=== PATIENT | male | born 1965 | race Caucasian/White ===

== ENCOUNTER 2016-10-19 02:22 | Emergency (ER) | payer OTHER ==
[~2016-10-19 02:22] MED LIST: Z.0.NO CURRENT MEDS
[2016-10-19 02:52] VITALS: BP 150/88; PULSE 90; RESP 18; TEMP 97.8; O2SAT 99
[2016-10-19] MEDS ORDERED: KETOROLAC TROMETHAMINE 30 MG/ML (IVP) VIAL IVP ONE (03:30)
[2016-10-19] MEDS ORDERED: SODIUM CHLORIDE 0.9% FLUSH 5 ML FLUSH IVF PRN (03:30)
[2016-10-19] MEDS ORDERED: ONDANSETRON HCL 4 MG/2 ML VIAL IVP ONE (03:30)
[2016-10-19 03:49] VITALS: RESP 18; O2SAT 98
[2016-10-19 03:56] LABS: AUTOMATED NEUTROPHIL # 22.5 TH/MM3 (1.8-7.7); BASOPHIL % 0.1 % (0.0-2.0); HEMATOCRIT 44.7 % (39.0-51.0); LYMPH % 2.3 % (9.0-44.0); LYMPHOCYTE # 0.6 TH/MM3 (1.0-4.8); MEAN CORPUSCULAR HEMOGLOBIN 32.6 PG (27.0-34.0); MEAN CORPUSCULAR HGB CONC 34.3 % (32.0-36.0); MONO % 5.3 % (0.0-8.0); NEUT % 92.3 % (16.0-70.0); PLATELET COUNT 211 TH/MM3 (150-450); RED BLOOD COUNT 4.71 MIL/MM3 (4.50-5.90); RED CELL DISTRIBUTION WIDTH 12.9 % (11.6-17.2); WHITE BLOOD COUNT 24.3 TH/MM3 (4.0-11.0)
[2016-10-19 03:57] LABS: HEMO FLAGS AUTO DIFF
--- NOTE | 2016-10-19 04:10 | RADRPT ---
EXAM DATE/TIME: 10/19/2016 03:49 [facility] COMPARISON: No previous studies available for comparison. INDICATIONS : Altered mental status. RADIATION DOSE: 63.30 CTDIvol (mGy) MEDICAL HISTORY : None SURGICAL HISTORY : None. ENCOUNTER: Initial ACUITY: 1 day PAIN SCALE: 0/10 LOCATION: cranial TECHNIQUE: Multiple contiguous axial images were obtained of the head. Using automated exposure control and adj ustment of the mA and/or kV according to patient size, radiation dose was kept as low as reasonably a chievable to obtain optimal diagnostic quality images. FINDINGS: Motion degraded CEREBRUM: The ventricles are normal for age. No evidence of midline shift, mass lesion, hemorrhage or acute in farction. No extra-axial fluid collections are seen. POSTERIOR FOSSA: The cerebellum and brainstem are intact. The 4th ventricle is midline. The cerebellopontine angle i s unremarkable. EXTRACRANIAL: The visualized portion of the orbits is intact. SKULL: The calvaria is intact. No evidence of skull fracture. CONCLUSION: No acute abnormality demonstrated. Ubaldo Gray MD on October 19, 2016 at 4:07 Board Certified Radiologist. This report was verified electronically.
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
[2016-10-19 04:24] LABS: ALT (GPT) 37 U/L (12-78); ANION GAP 13 MEQ/L (5-15); AST (GOT) 24 U/L (15-37); BANDS 17 % (0-6); BICARBONATE 21.3 MEQ/L (21.0-32.0); BLOOD UREA NITROGEN 11 MG/DL (7-18); CHLORIDE 95 MEQ/L (98-107); GLOMERULAR FILTRATION RATE 84 ML/MIN (>89); NEUTROPHIL # MANUAL DIFF 22.1 TH/MM3 (1.8-7.7); POLYS (SEG NEUTROPHILS) 74 % (16-70); POTASSIUM 3.5 MEQ/L (3.5-5.1); SODIUM (NA) 129 MEQ/L (136-145); WBC DIFF SAMPLE 100
[2016-10-19 04:25] LABS: PLATELET ESTIMATE SMEAR NORMAL (NORMAL); PLATELET MORPHOLOGY NORMAL (NORMAL); SCAN/DIFF FINAL DIFF MANUAL
[2016-10-19 04:31] LABS: ALKALINE PHOSPHATASE 112 U/L (45-117); TOTAL BILIRUBIN ADULT 0.8 MG/DL (0.2-1.0)
[2016-10-19 04:59] LABS: BLOOD, URINE MOD (NEG); COMMENT (UR) CULT NOT INDICATED; CULTURE IF INDICATED CULT NOT INDICATED; GLUCOSE,URINE 1000 mg/dL (NEG); KETONE, URINE 40 mg/dL (NEG); MUCUS URINE FEW /lpf (OCC); NITRITE,URINE NEG (NEG); URINE COLOR YELLOW (YELLW/STRAW)
[2016-10-19] MEDS ORDERED: CEPH-460 PO (05:19)
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
[2016-10-19] MEDS ORDERED: FLUCONAZOLE 100 MG TAB PO SCH (09:00)
== END 2016-10-19 06:28 | disposition home or self-care (01) ==
LOC: NEPE 02:22
DX: R10.9 Unspecified abdominal pain (principal); R41.82 Altered mental status, unspecified; R30.0 Dysuria; M54.5 Low back pain
CPT/HCPCS: 70450; 74176; 80053; 80320; 81001; 83690; 85007; 85027; 96374; 96375; 99285; J1885; J2405

== ENCOUNTER 2016-10-19 11:42 | Inpatient (IN) | payer OTHER ==
[~2016-10-19] VITALS: Ht 182.9 cm; Wt 101.1 kg
[2016-10-19] VITALS (7 sets, daily range): BP systolic 92–159; BP diastolic 62–96; PULSE 92–144; RESP 26–42; TEMP 98.8–101; O2SAT 94–99
[~2016-10-19 11:42] MED LIST changes: +CEPH-460 PO
[2016-10-19] MEDS ORDERED: LORazepam 2 MG/ML VIAL IV PUSH ONE (12:00)
[2016-10-19] MEDS ORDERED: SODIUM CHLORIDE 0.9% FLUSH 5 ML FLUSH IVF PRN ×2 (12:00)
[2016-10-19 12:46] LABS: AUTOMATED NEUTROPHIL # 29.5 TH/MM3 (1.8-7.7); LYMPHOCYTE # 0.3 TH/MM3 (1.0-4.8); MEAN CORPUSCULAR HEMOGLOBIN 32.4 PG (27.0-34.0); MEAN CORPUSCULAR HGB CONC 34.1 % (32.0-36.0); MONO % 4.3 % (0.0-8.0); NEUT % 94.7 % (16.0-70.0); PLATELET COUNT 172 TH/MM3 (150-450); RED BLOOD COUNT 4.94 MIL/MM3 (4.50-5.90); WHITE BLOOD COUNT 31.2 TH/MM3 (4.0-11.0)
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
[2016-10-19 12:49] LABS: HEMO FLAGS AUTO DIFF
[2016-10-19 12:51] LABS: BACTERIA, URINE RARE /hpf; BLOOD, URINE MOD (NEG); GLUCOSE,URINE 1000 mg/dL (NEG); KETONE, URINE 10 mg/dL (NEG); NITRITE,URINE NEG (NEG); SQUAMOUS EPITHELIAL CELL URINE <1 /hpf (0-5); URINE COLOR YELLOW (YELLW/STRAW)
[2016-10-19 12:53] LABS: COMMENT (UR) CULT NOT INDICATED; CULTURE IF INDICATED CULT NOT INDICATED
[2016-10-19 12:55] LABS: AMPHETAMINE, URINE POS (NEG); BARBITURATES, URINE NEG (NEG); COCAINE, URINE NEG (NEG)
[2016-10-19 12:58] LABS: APTT (PATIENT) 30.3 SEC (24.3-30.1); PROTHROMBIN TIME - PATIENT 11.4 SEC (9.8-11.6)
--- NOTE | 2016-10-19 13:10 | RADRPT ---
EXAM DATE/TIME: 10/19/2016 12:40 [facility] COMPARISON: No previous studies available for comparison. INDICATIONS : Syncopal episode. MEDICAL HISTORY : Unobtainable. SURGICAL HISTORY : Unobtainable. ENCOUNTER: Initial ACUITY: 1 day PAIN SCORE: Non-responsive. LOCATION: Bilateral chest FINDINGS: A single view of the chest demonstrates the lungs to be symmetrically aerated without evidence of mas s, infiltrate or effusion. The cardiomediastinal contours are unremarkable. Osseous structures are intact. CONCLUSION: No acute pulmonary infiltrates Marcel Cabrera MD on October 19, 2016 at 13:09 Board Certified Radiologist. This report was verified electronically.
[2016-10-19 13:11] LABS: ALKALINE PHOSPHATASE 153 U/L (45-117); ALT (GPT) 37 U/L (12-78); ANION GAP 18 MEQ/L (5-15); AST (GOT) 37 U/L (15-37); BICARBONATE 15.9 MEQ/L (21.0-32.0); BLOOD UREA NITROGEN 21 MG/DL (7-18); CHLORIDE 100 MEQ/L (98-107); GLOMERULAR FILTRATION RATE 30 ML/MIN (>89); POTASSIUM 3.3 MEQ/L (3.5-5.1); SODIUM (NA) 134 MEQ/L (136-145); TOTAL BILIRUBIN ADULT 1.4 MG/DL (0.2-1.0)
[2016-10-19] MEDS ORDERED: PIPERACIL-TAZO 4.5 GM PREMIX 100 ML IV STA (13:16)
[2016-10-19] MEDS ORDERED: VANCOMYCIN INJ 1,000 MG in SODIUM CHLOR 0.9% 250 ML INJ 250 ML IV STA (13:16)
[2016-10-19 13:23] LABS: BANDS 12 % (0-6); NEUTROPHIL # MANUAL DIFF 30.3 TH/MM3 (1.8-7.7); PLATELET ESTIMATE SMEAR NORMAL (NORMAL); PLATELET MORPHOLOGY NORMAL (NORMAL); POLYS (SEG NEUTROPHILS) 85 % (16-70); SCAN/DIFF FINAL DIFF MANUAL; TOXIC VACUOLATION PRESENT (NONE SEEN); WBC DIFF SAMPLE 100
[2016-10-19 13:24] LABS: CREATINE KINASE 326 U/L (39-308)
[2016-10-19 13:25] LABS: ACANTHOCYTES OCC (NORMAL); BURR CELLS 1+ (NORMAL)
[2016-10-19] MEDS ORDERED: SODIUM CHLOR 0.9% 1000 ML INJ 1,000 ML IV ONE ×5 (13:30→20:00)
[2016-10-19 13:31] LABS: CKMB 4.4 NG/ML (0.5-3.6)
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
[2016-10-19 14:17] LABS: BARBITURATES, URINE NEG (NEG)
[2016-10-19 14:18] LABS: AMPHETAMINE, URINE POS (NEG); COCAINE, URINE NEG (NEG)
[2016-10-19] MEDS ORDERED: POTASSIUM PHOSPHATE MONOBASIC 500 MG TAB PO/TUBE PRN (14:30)
[2016-10-19] MEDS ORDERED: GLUCAGON 1 MG/ML VIAL OTHER PRN (14:30)
[2016-10-19] MEDS ORDERED: POTASSIUM PHOSPHATE INJ 30 MMOL in SODIUM CHLOR 0.9% 250 ML INJ 250 ML IV PRN (14:30)
[2016-10-19] MEDS ORDERED: CHLORHEXIDINE GLUCONATE 2 % 1 PACK (2 CLOTHS) TOP PRN (14:30)
[2016-10-19] MEDS ORDERED: Vancomycin Consult Pharmacy 1 EA XX PRN (14:30)
[2016-10-19] MEDS ORDERED: POTASSIUM CHLOR 40 MEQ PREMIX 100 ML IV PRN ×2 (14:30)
[2016-10-19] MEDS ORDERED: DEXTROSE 50% IN WATER 50 ML VIAL(D50) IV PUSH PRN (14:30)
[2016-10-19] MEDS ORDERED: MISCELLANEOUS NURSING INFORMATION XX SCH (14:30)
[2016-10-19] MEDS ORDERED: POTASSIUM CL 40 MEQ/30 ML LIQ UDC PO/TUBE PRN ×2 (14:30)
[2016-10-19] MEDS ORDERED: MAGNESIUM OXIDE 400 MG TAB PO PRN (14:30)
[2016-10-19] MEDS ORDERED: RESP: ALBUTEROL 2.5 MG/IPRATROPIUM 0.5 MG NEB (PRN) INH (14:30)
[2016-10-19] MEDS ORDERED: POTASSIUM CHLOR 20 MEQ PREMIX 100 ML IV PRN (14:30)
[2016-10-19] MEDS ORDERED: SODIUM PHOSPHATE INJ 30 MMOL in SODIUM CHLOR 0.9% 250 ML INJ 240 ML IV PRN (14:30)
[2016-10-19] MEDS ORDERED: MAGNESIUM SULFATE INJ 2 GM in SODIUM CHLORIDE 0.9% INJ 96 ML IV PRN (14:30)
[2016-10-19] MEDS ORDERED: MAGNESIUM SULFATE INJ 4 GM in SODIUM CHLORIDE 0.9% INJ 92 ML IV PRN (14:30)
[2016-10-19] MEDS ORDERED: SODIUM CHLORIDE 0.9% FLUSH 5 ML FLUSH IV FLUSH PRN (14:30)
[2016-10-19 14:42] LABS: LACTIC ACID GHOST NOT REPORTABLE
[2016-10-19] MEDS ORDERED: HALOPERIDOL LACTATE 5 MG/ML AMP IM PRN (14:45)
[2016-10-19] MEDS ORDERED: LORazepam 2 MG/ML VIAL IV PUSH PRN ×4 (14:45)
[2016-10-19] MEDS ORDERED: FLUMAZENIL 0.5 MG/5 ML VIAL IV PUSH PRN (14:45)
[2016-10-19] MEDS: POTASSIUM CHLOR 20 MEQ PREMIX 100 ML IV PRN ×3 (14:48→18:28)
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
[2016-10-19] MEDS: DEXMEDETOMIDINE INJ 50 ML IV SCH ×4 (15:37→21:36)
[2016-10-19] MEDS: SODIUM CHLOR 0.9% 1000 ML INJ 1,000 ML IV SCH (15:38)
[2016-10-19] MEDS: CEFEPIME INJ 2,000 MG in SODIUM CHLORIDE 0.9% INJ 100 ML IV SCH ×2 (15:53→23:32)
[2016-10-19] MEDS: HEPARIN SODIUM - SQ 10,000 UNITS/ML VIAL SQ SCH (15:53)
[2016-10-19] MEDS: INSULIN NovoLIN REGULAR SUPPLEMENTAL SCALE SQ SCH ×2 (15:55→21:00)
[2016-10-19] MEDS ORDERED: VANCOMYCIN 500 MG/NS 100 ML IV SCH ×2 (17:00)
[2016-10-19] MEDS: LORazepam 2 MG/ML VIAL IV PRN (17:13)
[2016-10-19] MEDS: MULTIVITAMIN INJ 10 ML, FOLIC ACID INJ 1 MG in SODIUM CHLORID 0.9% 500 ML INJ 500 ML IV SCH (18:17)
[2016-10-19] MEDS: CHLORHEXIDINE 0.12% (ORAL KIT) 15 ML CUP MT SCH (20:10)
[2016-10-19] MEDS: SODIUM CHLORIDE 0.9% FLUSH 5 ML FLUSH IV FLUSH SCH (20:11)
[2016-10-19 20:26] LABS: BLOOD GAS BASE EXCESS -1.5 mmol/L (-2-2); BLOOD GAS CARBOXYHEMOGLOBIN 1.2 % (0-4); BLOOD GAS HCO3 23 mmol/L (22-26); BLOOD GAS METHEMOGLOBIN 1.3 % (0-2); BLOOD GAS O2 HGB SATURATION 84 % (90-100); BLOOD GAS OXYGEN CONTENT 16.7 Vol % (12.0-20.0); BLOOD GAS PCO2 37 mmHg (38-42); BLOOD GAS PO2 53 mmHg (61-120); BLOOD GAS TOTAL HGB 14.1 G/DL (12.0-16.0); TEMP CORR TO 98.6
[2016-10-19 20:27] LABS: CRITICAL VALUE YES; OXYGEN DEVICE NASAL CANNULA
[2016-10-19 20:28] LABS: DRAW SITE RT RADIAL; FIO2 28 %; LITER FLOW 2 L/M; NUMBER OF ARTERIAL PUNCTURES 1; STAT YES; ULNAR PULSE PRESENT
[2016-10-19] MEDS ORDERED: POTASSIUM PHOSPHATE INJ 30 MMOL in SODIUM CHLOR 0.9% 250 ML INJ 250 ML IV ONE (20:45)
[2016-10-19] MEDS ORDERED: SODIUM PHOSPHATE INJ 30 MMOL in SODIUM CHLOR 0.9% 250 ML INJ 250 ML IV ONE (21:00)
[2016-10-19] MEDS ORDERED: SODIUM CHLORIDE 0.9% FLUSH 5 ML FLUSH IV FLUSH SCH (21:00)
[2016-10-20] VITALS (20 sets, daily range): BP systolic 103–138; BP diastolic 61–77; PULSE 79–103; RESP 18–45; TEMP 98.6–100.2; O2SAT 94–100
[2016-10-20 01:36] LABS: BLOOD GAS BASE EXCESS -3.2 mmol/L (-2-2); BLOOD GAS CARBOXYHEMOGLOBIN 1.1 % (0-4); BLOOD GAS HCO3 21 mmol/L (22-26); BLOOD GAS METHEMOGLOBIN 1.2 % (0-2); BLOOD GAS O2 HGB SATURATION 91 % (90-100); BLOOD GAS OXYGEN CONTENT 18.6 Vol % (12.0-20.0); BLOOD GAS PCO2 33 mmHg (38-42); BLOOD GAS PO2 68 mmHg (61-120); BLOOD GAS TOTAL HGB 14.6 G/DL (12.0-16.0); CRITICAL VALUE NO; OXYGEN DEVICE NASAL CANNULA; TEMP CORR TO 98.6
[2016-10-20 01:37] LABS: DRAW SITE RT RADIAL; FIO2 45 %; LITER FLOW 5 L/M; NUMBER OF ARTERIAL PUNCTURES 1; STAT NO; ULNAR PULSE PRESENT
[2016-10-20] MEDS: DEXMEDETOMIDINE INJ 50 ML IV SCH (01:37)
[2016-10-20] MEDS: LORazepam 2 MG/ML VIAL IV PRN (01:52)
[2016-10-20] MEDS: SODIUM CHLOR 0.9% 1000 ML INJ 1,000 ML IV SCH ×2 (02:19→13:27)
[2016-10-20] MEDS ORDERED: fentaNYL DRIP 250 ML IV SCH (02:30)
[2016-10-20] MEDS ORDERED: LACTATED RINGER'S 1000 ML INJ 1,000 ML IV ONE (02:30)
[2016-10-20] MEDS ORDERED: ETOMIDATE 20 MG/10 ML VIAL IV PUSH ONE (02:30)
[2016-10-20] MEDS ORDERED: ROCURONIUM INJ 50 MG/5 ML VIAL IV ONE (02:30)
--- NOTE | 2016-10-20 03:24 | PD.PROCEDR ---
Procedure Note Procedure PROCEDURE NOTE PROCEDURE: Endotracheal intubation INDICATION: Inadequate airway protection. DETAILS OF PROCEDURE: Patient has been tachypneic throughout the evening,adequately compensating for metabolic acidemia. Acidemia has been improving. But came to bedside to assess and he has L hemiparesis and no gag reflex. No witness seizure activity. Unknown time of onset so not candidate for TPA, but will do CT brain and probably followup with MRI if CT brain negative for bleed. The patient was placed in optimal position and preoxygenated with 100% FiO2 via [id number]. Oximeter oxygen saturation of 98% was obtained prior to direct laryngoscopy. The patient was administered Etomidate 20 mg IV and Rocuronium 50 mg IV for RSI. Direct laryngoscopy was performed with a 4.0 Cox laryngoscope blade and a grade 2 Cormack-Lehane view was obtained. On single attempt a size 8.0 endotracheal tube was visualized passing through the cords. Correct placement was confirmed with colorimetric CO2 detector. Breath sounds were equal bilaterally. No sounds auscultated over the stomach. The endotracheal tube was secured with a commercial tube anaya at a depth of 24 cm at the lips. The patient was connected to the ventilator. The patient tolerated the procedure well without any apparent complication. Oxygen saturations were maintained greater than 97% at all times. Stat chest x-ray demonstrated satisfactory ETT position. Elayne Healy MD Oct 20, 2016 03:24
[2016-10-20 03:26] LABS: BLOOD GAS BASE EXCESS -3.8 mmol/L (-2-2); BLOOD GAS HCO3 21 mmol/L (22-26); BLOOD GAS METHEMOGLOBIN 1.3 % (0-2); BLOOD GAS O2 HGB SATURATION 86 % (90-100); BLOOD GAS OXYGEN CONTENT 18.1 Vol % (12.0-20.0); BLOOD GAS PCO2 40 mmHg (38-42); BLOOD GAS PO2 57 mmHg (61-120); BLOOD GAS TOTAL HGB 15.1 G/DL (12.0-16.0); TEMP CORR TO 98.6
[2016-10-20 03:27] LABS: CRITICAL VALUE YES; OXYGEN DEVICE VENTILATOR
--- NOTE | 2016-10-20 03:27 | PD.PROCEDR ---
Procedure Note Procedure DATE: 10/20/16 CENTRAL LINE PLACEMENT: Right subclavian vein. INDICATION: Central venous access CONSENT Procedure was done emergently as patient has no known healthcare surrogate and he is intubated and in need of central access. His mother has dementia and is not capacitated for medical decision making according to patient's friend. DESCRIPTION OF THE PROCEDURE The patient was placed in supine position, Trendelenburg. The skin was cleansed with Chloraprep 4. Additional barrier precautions included large sterile drape, sterile gloves, sterile gown, face mask, and hat. 1 % lidocaine was used for local anesthesia. On second pass, the vein was accessed with an introducer needle. The guide wire was advanced and the tract was dilated. Using Seldinger technique a 7 [place] 20 cm antimicrobial coated triple-lumen catheter was advanced to a depth of 18 centimeters. The guide wire was removed. All ports had good return of dark venous blood and flushed easily with saline. The central line was secured with 2.0 silk. A sterile dressing with antibiotic disc was applied. ESTIMATED BLOOD LOSS: Minimal COMPLICATIONS: No apparent complications. STAT chest x-ray demonstrated satisfactory CVL position without apparent complication when viewed on portable Xray machine. Elayne Healy MD Oct 20, 2016 03:27
[2016-10-20 03:28] LABS: DRAW SITE RT RADIAL; FIO2 50 %; NUMBER OF ARTERIAL PUNCTURES 1; STAT YES; ULNAR PULSE PRESENT; VENT SETTINGS AC18/550/PEEP5
--- NOTE | 2016-10-20 03:34 | RADRPT ---
EXAM DATE/TIME: 10/20/2016 03:13 [facility] COMPARISON: CHEST SINGLE AP, October 19, 2016, 12:40. INDICATIONS : Central line placement. MEDICAL HISTORY : None. SURGICAL HISTORY : None. ENCOUNTER: Subsequent ACUITY: 2 days PAIN SCORE: Non-responsive. LOCATION: Bilateral chest FINDINGS: The cardiac silhouette is enlarged in transverse diameter. There is prominence of the central pulmona ry vasculature with indistinct vascular margins compatible with vascular congestion but no evidence o f overt failure. Endotracheal tube is in good position above the omari. A right sided subclavian rig ht vein catheter is in place without pneumothorax with its tip in the superior vena cava. Endotrachea l tube is in good position above the omari. CONCLUSION: 1. Uncomplicated line placement. No evidence of pneumothorax. Satisfactory position of endotracheal t ube as above. 2. Cardiomegaly and findings of vascular congestion without overt failure. This is new when compared with the prior exam. John Hobson MD on October 20, 2016 at 3:31 Board Certified Radiologist. This report was verified electronically.
[2016-10-20] MEDS: CHLORHEXIDINE GLUCONATE 2 % 1 PACK (2 CLOTHS) TOP SCH (04:00)
[2016-10-20 04:43] LABS: AUTOMATED NEUTROPHIL # 25.1 TH/MM3 (1.8-7.7); BASOPHIL % 0.1 % (0.0-2.0); EOSINOPHIL % 0.2 % (0.0-4.0); HEMATOCRIT 37.2 % (39.0-51.0); LYMPH % 4.3 % (9.0-44.0); LYMPHOCYTE # 1.2 TH/MM3 (1.0-4.8); MEAN CORPUSCULAR HEMOGLOBIN 32.6 PG (27.0-34.0); MEAN CORPUSCULAR HGB CONC 34.3 % (32.0-36.0); MONO % 5.5 % (0.0-8.0); NEUT % 89.9 % (16.0-70.0); PLATELET COUNT 126 TH/MM3 (150-450); RED BLOOD COUNT 3.92 MIL/MM3 (4.50-5.90); RED CELL DISTRIBUTION WIDTH 13.4 % (11.6-17.2); WHITE BLOOD COUNT 27.9 TH/MM3 (4.0-11.0)
[2016-10-20 04:46] LABS: HEMO FLAGS AUTO DIFF
[2016-10-20 04:50] LABS: APTT (PATIENT) 28.8 SEC (24.3-30.1); PROTHROMBIN TIME - PATIENT 10.9 SEC (9.8-11.6)
[2016-10-20] MEDS: PROPOFOL 1000 MG/100 ML INJ 100 ML IV SCH ×6 (04:50→19:36)
--- NOTE | 2016-10-20 05:03 | RADRPT ---
EXAM DATE/TIME: 10/20/2016 03:40 [facility] COMPARISON: CT BRAIN W/O CONTRAST, October 19, 2016, 3:49. CT BRAIN W/O CONTRAST, October 19, 2016, 13:16. INDICATIONS : Altered mental status. RADIATION DOSE: 52.13 CTDIvol (mGy) MEDICAL HISTORY : Non-responsive. SURGICAL HISTORY : Non-responsive. ENCOUNTER: Initial ACUITY: 1 day PAIN SCALE: 1/10 LOCATION: cranial TECHNIQUE: Multiple contiguous axial images were obtained of the head. Using automated exposure control and adj ustment of the mA and/or kV according to patient size, radiation dose was kept as low as reasonably a chievable to obtain optimal diagnostic quality images. FINDINGS: Noncontrast axial head CT demonstrates the ventricles to be normal in size and configuration with a n ormal sulcal pattern. No acute intracranial hemorrhage, acute cortical infarction, mass or midline sh ift is seen. Posterior fossa structures are unremarkable. 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 CONCLUSION: 1. No evidence of acute intracranial pathology. No masses are identified. 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 This report was verified electronically.
[2016-10-20 05:31] LABS: ALKALINE PHOSPHATASE 98 U/L (45-117); ALT (GPT) 33 U/L (12-78); ANION GAP 13 MEQ/L (5-15); AST (GOT) 56 U/L (15-37); BICARBONATE 21.5 MEQ/L (21.0-32.0); BLOOD UREA NITROGEN 30 MG/DL (7-18); CHLORIDE 108 MEQ/L (98-107); GLOMERULAR FILTRATION RATE 41 ML/MIN (>89); MAGNESIUM 2.5 MG/DL (1.5-2.5); POTASSIUM 3.5 MEQ/L (3.5-5.1); SODIUM (NA) 142 MEQ/L (136-145); TOTAL BILIRUBIN ADULT 1.2 MG/DL (0.2-1.0)
[2016-10-20] MEDS: INSULIN NovoLIN REGULAR SUPPLEMENTAL SCALE SQ SCH ×4 (06:27→20:57)
[2016-10-20 06:48] LABS: BANDS 17 % (0-6); METAMYELOCYTES 1 % (0-1); NEUTROPHIL # MANUAL DIFF 24.8 TH/MM3 (1.8-7.7); POLYS (SEG NEUTROPHILS) 71 % (16-70); SCAN/DIFF FINAL DIFF MANUAL; WBC DIFF SAMPLE 100
[2016-10-20 06:50] LABS: PLATELET ESTIMATE SMEAR LOW (NORMAL); PLATELET MORPHOLOGY NORMAL (NORMAL)
[2016-10-20 06:51] LABS: ACANTHOCYTES OCC (NORMAL); DOHLE BODIES PRESENT (NONE SEEN); TOXIC GRANULATION 1+ (NORMAL)
[2016-10-20] MEDS: CEFEPIME INJ 2,000 MG in SODIUM CHLORIDE 0.9% INJ 100 ML IV SCH ×3 (07:47→23:54)
[2016-10-20] MEDS: CHLORHEXIDINE 0.12% (ORAL KIT) 15 ML CUP MT SCH ×3 (07:48→19:34)
[2016-10-20] MEDS: PANTOPRAZOLE SODIUM 40 MG VIAL IV SCH (08:26)
[2016-10-20] MEDS: SODIUM CHLORIDE 0.9% FLUSH 5 ML FLUSH IV FLUSH SCH ×2 (08:27→20:57)
[2016-10-20 08:40] LABS: BLOOD GAS BASE EXCESS -2.8 mmol/L (-2-2); BLOOD GAS CARBOXYHEMOGLOBIN 0.8 % (0-4); BLOOD GAS HCO3 21 mmol/L (22-26); BLOOD GAS METHEMOGLOBIN 1.1 % (0-2); BLOOD GAS O2 HGB SATURATION 95 % (90-100); BLOOD GAS OXYGEN CONTENT 26.2 Vol % (12.0-20.0); BLOOD GAS PCO2 34 mmHg (38-42); BLOOD GAS PO2 87 mmHg (61-120); BLOOD GAS TOTAL HGB 19.6 G/DL (12.0-16.0); CRITICAL VALUE NO; OXYGEN DEVICE VENTILATOR; TEMP CORR TO 98.6
[2016-10-20 08:41] LABS: DRAW SITE LT RADIAL; FIO2 45 %; NUMBER OF ARTERIAL PUNCTURES 1; STAT YES; ULNAR PULSE PRESENT; VENT SETTINGS A/C550/18/5PEEP
--- NOTE | 2016-10-20 09:40 | EKG ---
Date Performed: 10/19/2016 Time Performed: 11:48:10 PTAGE: 51 years EKG: SINUS TACHYCARDIA WITH SHORT PA INTERVAL WITH OCCASIONAL VENTRICULAR PREMATURE COMPLEXES, P OSSIBLE ATRIAL FLUTTER MODERATE ST DEPRESSION ABNORMAL ECG INTERPRETATION BASED ON A DEFAULT AGE OF 4 0 YEARS NO PREVIOUS TRACING DOCTOR: John De Dios Interpretating Date/Time 10/20/2016 09:36:54
--- NOTE | 2016-10-20 10:28 | EKG ---
Date Performed: 10/19/2016 Time Performed: 17:26:52 PTAGE: 51 years EKG: SINUS TACHYCARDIA POSSIBLE LEFT ATRIAL ENLARGEMENT ABNORMAL RHYTHM ECG Compared to prior tr acing no significant change PREVIOUS TRACING : 10/19/2016 11.48 DOCTOR: John De Dios Interpretating Date/Time 10/20/2016 10:26:05
[2016-10-20] MEDS ORDERED: GADOBENATE DIM PF 529 MG/ML 5 ML VIAL (for RAD MRI) IV ONE (10:34)
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
[2016-10-20] MEDS: VANCOMYCIN INJ 2,000 MG in SODIUM CHLORID 0.9% 500 ML INJ 500 ML IV SCH (11:24)
[2016-10-20] MEDS ORDERED: ASPIRIN 325 MG TAB PO ONE (13:15)
--- NOTE | 2016-10-20 13:37 | RADRPT ---
EXAM DATE/TIME: 10/20/2016 12:03 [facility] COMPARISON: No previous studies available for comparison. INDICATIONS: Distention. MEDICAL HISTORY : unobtainable SURGICAL HISTORY : unobtainable ENCOUNTER: Subsequent ACUITY: 2 days PAIN SCORE: Non-responsive. LOCATION: Bilateral upper quadrant and lower quadrant abdomen FINDINGS: Minimal colonic dilatation is evident. There are degenerative changes in the lumbar spine. CONCLUSION: Nonspecific bowel gas. Maximiliano Nielsen MD FACR on October 20, 2016 at 13:30 Board Certified Radiologist. This report was verified electronically.
--- NOTE | 2016-10-20 14:07 | HHI.CCPN ---
Subjective Remarks/Hospital Course 51-year-old male with history of chronic substance use and alcohol use, was recently seen in the ER apparently for UTI earlier this a.m.,CT scanshowing possible pyelonephritis, with perinephric edema and subsequently discharged. This subsequent presentation to the ED today brought in by EMS, because he was found in the [place] by bystanders, disoriented,unknown LOC. According to EMS, they believe that he may have used some crack cocaine. No history was obtainable in the ED, laboratory and imaging studies were performed. The patient was noted to have leukocytosis, with a WBC count of 31, with an initial lactate of 7.3 .CT of the head showed no acute abnormality .Upon my entering the ED to examine the patient, supine in 4 point restraints,combative, not responding, but awake. He is diaphoretic and tachycardic , HR 115-120's. Critical care medicine was consulted for treatment and management. Subjective 10/20 Afebrile. Last evening, the patient was noted to be moving all 4 extremities, requiring 4. restraints in addition of the Precedex infusion. Noncommunicative, combative and motor strength 5/5. Approximately 2:30 AM, the patient was noted to be nonresponsive off sedation, left hemiplegia, with no gag reflex. The patient was emergently intubated for airway protection. ABGs were within normal limits. Repeat CT at 4 AM was unremarkable. MRI obtained today, noted mild restricted diffusion right basal ganglia characteristic of subacute infarction. One dose of aspirin was given, neurology was consulted appreciate recommendations. Carotid Doppler studies, echo pending. Objective Vital Signs Date Time Temp Pulse Resp B/P Pulse Ox O2 Delivery O2 Flow Rate FiO2 10/20/16 12:00 45 10/20/16 12:00 98.6 82 20 110/70 97 10/19/16 19:18 Nasal Cannula 2.00 Intake and Output 10/19/16 10/19/16 10/20/16 08:00 16:00 00:00 Intake Total 3228 ml Output Total 900 ml Balance 2328 ml Result Diagram: 10/20/16 0425 10/20/16 0425 Other Results Laboratory Tests Test 10/19/16 10/20/16 10/20/16 10/20/16 20:13 01:21 03:14 08:32 Blood Gas Puncture Site RT RADIAL RT RADIAL RT RADIAL LT RADIAL Blood Gas Patient Temperature 98.6 98.6 98.6 98.6 Blood Gas HCO3 23 mmol/L 21 mmol/L 21 mmol/L 21 mmol/L (22-26) (22-26) (22-26) (22-26) Blood Gas Base Excess -1.5 mmol/L -3.2 mmol/L -3.8 mmol/L -2.8 mmol/L (-2-2) (-2-2) (-2-2) (-2-2) Blood Gas Oxygen Saturation 84 % (90-100) 91 % (90-100) 86 % (90-100) 95 % (90- 100) Arterial Blood pH 7.41 7.42 7.34 7.41 (7.380-7.420) (7.380-7.420) (7.380-7.420) (7.380-7.420) Arterial Blood Partial 37 mmHg (38-42) 33 mmHg (38-42) 40 mmHg (38-42) 34 mmHg ( 38-42) Pressure CO2 Arterial Blood Partial 53 mmHg 68 mmHg 57 mmHg 87 mmHg Pressure O2 (61-120) (61-120) (61-120) (61-120) Arterial Blood Oxygen Content 16.7 Vol % 18.6 Vol % 18.1 Vol % 26.2 Vol % (12.0-20.0) (12.0-20.0) (12.0-20.0) (12.0-20.0) Arterial Blood 1.2 % (0-4) 1.1 % (0-4) 1.0 % (0-4) 0.8 % (0-4) Carboxyhemoglobin Arterial Blood Methemoglobin 1.3 % (0-2) 1.2 % (0-2) 1.3 % (0-2) 1.1 % (0-2) Blood Gas Hemoglobin 14.1 G/DL 14.6 G/DL 15.1 G/DL 19.6 G/DL (12.0-16.0) (12.0-16.0) (12.0-16.0) (12.0-16.0) Oxygen Delivery Device NASAL CANNULA NASAL CANNULA VENTILATOR VENTILATOR Blood Gas Liter Flow 2 L/M 5 L/M Blood Gas Inspired Oxygen 28 % 45 % 50 % 45 % Blood Gas Ventilator Setting AC18/550/PEEP5 A/C550/18/5PEEP Imaging Last [address] 10/20/16 0000 Signed Impressions: Service Date/Time: Thursday, October 20, 2016 03:40 - CONCLUSION: 1. No evidence of acute intracranial pathology. No masses are identified. Old right basal ganglia infarct John Hobson MD Chest X-Ray 10/20/16 0000 Signed Impressions: Service Date/Time: Thursday, October 20, 2016 03:13 - CONCLUSION: 1. Uncomplicated line placement. No evidence of pneumothorax. Satisfactory position of endotracheal tube as above. 2. Cardiomegaly and findings of vascular congestion without overt failure. This is new when compared with the prior exam. John Hobson MD Brain MRI 10/20/16 0000 Signed Impressions: Service Date/Time: Thursday, October 20, 2016 09:50 - CONCLUSION: 1. Focal area of mild restricted diffusion in the right basal ganglia with increased signal on the flair and T2-weighted sequence characteristic of an area of subacute infarction. 2. Mild atrophy and chronic small vessel ischemic change. 3. No acute hemorrhage or mass effect. Micha Wallace MD Last Impressions Head CT 10/19/16 1159 Signed Impressions: Service Date/Time: Wednesday, October 19, 2016 13:16 - CONCLUSION: No acute pathology. No significant change has occurred compared to the prior study. Marcel Cabrera MD Chest X-Ray 10/19/16 1159 Signed Impressions: Service Date/Time: Wednesday, October 19, 2016 12:40 - CONCLUSION: No acute pulmonary infiltrates Marcel Cabrera MD Objective Remarks GENERAL: Critically ill-appearing male intubated and sedated. SKIN: Warm and dry. HEAD: Atraumatic. Normocephalic. EYES: Pupils equal and round, 2 mm. No scleral icterus, or nystagmus. No injection or drainage. ENT: No nasal bleeding or discharge. Mucous membranes pink and moist. Orotracheally intubated NECK: Trachea midline. No JVD. CARDIOVASCULAR: Regular rate, and regular rhythm. RESPIRATORY: No accessory muscle use. Clear to auscultation. Breath sounds equal bilaterally. GASTROINTESTINAL: Abdomen soft, non-tender, nondistended. No guarding. Well- healed midline abdominal scar noted OGT in situ MUSCULOSKELETAL: Extremities cyanosis B/L feet or edema. No obvious deformities. NEUROLOGICAL:GCS 3T. Off sedation ,pt not following commands, but noted to be moving right upper and lower extremity. Urinary Catheter: Yes Campbell insert reason: Measure Accurate Output Date of Insertion: Oct 19, 2016 Vascular Central Line Catheter: Yes Assessment to: Continue Date of Insertion: Oct 20, 2016 Line: Central Venous Catheter Side: Left Location: Subclavian A/P Assessment and Plan Plan by systems: Neurologic: Toxic encephalopathy versus metabolic encephalopathy Alcohol use disorder Right Subacute basal ganglia infarct -GCS 3T Propofol infusion for ventilator synchrony -CT 10/19no acute pathology, 10/20- Old right basal ganglia infarct -MRI 10/20-mild restricted diffusion right basal ganglia,characteristic of subacute infarction -ASA 325 x 1 dose -Obtain carotid Doppler [id number] results -10/19 Expanded urine tox screen pending, positive for amphetamines, cannabinoids , opiates -Neurology consult- Dr. Macias -Monitor for alcohol withdrawal-CIWA protocol,Haldol -Monitor for seizure activity -10/20 XHA-[id number] results -Propofol infusion for ventilator synchrony -Multivitamin IV bag 2 days, then when necessary thiamine and folate Respiratory: -Mechanical ventilation-AC 18/550/.45/5 -Ventilator bundle -Maintain O2 sat greater than 92% -Monitor ABGs -Daily sedation vacation -Bronchodilators scheduled every 4 hours, every 2 hours when necessary Maintain head of bed 30 Cardiovascular: Tachycardia-resolved -Normotensive at this time, heart rate 115, will avoid beta blockers at this time secondary to possible cocaine use -Follow up serial EKG 10/19 sinus tach, LAE -Initial troponin 0.06->0.14->0.06 down trended -F/U echo-rule out endocarditis-with LAE , may consider ROSIBEL, rule out thrombus -Obtain lipid panel Renal: Dehydration- Renal insufficiency -NS @ 42cc/hr -Creatinine improving now 1.75, continue to monitor -Monitor BMP -- Strict I/Os FEN/GI: Hypokalemia -Replete electrolytes per ICU protocol -Dietary consult -Placement of OGT, follow-up KUB, begin tube feeds -Protonix GI prophylaxis -Bowel regimen senna, colace Heme/ID: Leukocytosis Sepsis -ID consulted -Encephalopathy possibly due to meningitis, Lumbar Puncture medically necessary - coordination per Dr. Reid -Lactate 1.5 -WBC 31-->27.9 today -Empiric antibioticscefepime and vancomycin (day 2) -10/19 Blood cultures-strep pneumo -10/19 Urine cultures-NGTD Endocrine: Hyperglycemia -Glucose monitoring every 6 hours per ICU protocol, low-dose Novolin regimen -Obtain hemoglobin A1C -- SSI Prophylaxis: GI Prophylaxis Protonix DVT Prophylaxis -- SCDs Heparin SQ BID Lines: PIV's x2. Central line [facility] (10/20) Dispo: This patient remains critically ill with one or more organ systems which are or may become a threat to life. I have spent in excess of 49 minutes discontinuously in the care and management of this patient. This time is exclusive of procedures, and includes, but is not limited to, evaluation of the patient, review of the medical record, discussions with family, consultants, nursing staff, or respiratory therapy, and documentation in the medical record. Physician Nicole Li MD Oct 20, 2016 14:07
[2016-10-20] MEDS: RESP: ALBUTEROL 2.5 MG/IPRATROPIUM 0.5 MG NEB (SCH) NEB ×2 (14:33→19:50)
--- NOTE | 2016-10-20 14:53 | OTSOAPIP ---
TIME SESSION COMPLETED: AM TREATMENT TIME: 0 MINS. CHART REVIEWED. RECEIVED ORDER TO EVALUATE AND TREAT, PT PRESENTS WITH CHANGE IN MEDICAL STATUS SINCE ORDERS RECEIVED PER NURSING APPROXIMATELY 2:30 AM, THE PATIENT WAS NOTED TO BE NONRESPONSIVE OFF SEDATION, LEFT HEMIPLEGIC, WITH NO GAG REFLEX AND WAS REQUIRED TO BE INTUBATED. INTERDISCIPLINARY COMMUNICATION: SPOKE WITH NURSING AND DR CELIS INFORMING PT WILL REQUIRE RESTART ORDERS. PT IS SCHEDULED FOR A BRAIN MRI. PLAN: WILL AWAIT RESTART ORDERS Therapist: SUHAIL ARANA/Eleanor Signature on file
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
--- NOTE | 2016-10-20 15:55 | EC ---
Study Study Date:10/20/2016 STUDY CONCLUSIONS SUMMARY - Left ventricle: The cavity size was normal. Wall thickness was normal. Systolic function was normal. The estimated ejection fraction was in the range of 55% to 60%. Wall motion was normal; there were no regional wall motion abnormalities. - Mitral valve: Mild regurgitation. - Tricuspid valve: Mild regurgitation. - Pulmonary arteries: PA peak pressure: 40mm Hg (S). Impressions: No evidence of endocarditis. If LV function is below 40, please consider prescribing an ACEI or ARB or document rationale for non-use. PROCEDURE DATA STUDY STATUS: Elective. Procedure: Transthoracic echocardiography. Image quality was good. Scanning was performed from the parasternal, apical, and subcostal acoustic windows. Study completion: The patient tolerated the procedure well. Transthoracic echocardiography. M-mode, complete 2D, complete spectral Doppler, and color Doppler. Patient status: Inpatient. CARDIAC ANATOMY LEFT VENTRICLE: The cavity size was normal. Wall thickness was normal. Systolic function was normal. The estimated ejection fraction was in the range of 55% to 60%. Wall motion was normal; there were no regional wall motion abnormalities. AORTIC VALVE: Trileaflet; normal thickness leaflets. Doppler: Transvalvular velocity was within the normal range. There was no stenosis. No regurgitation. AORTA: Aortic root: The aortic root was normal in size. MITRAL VALVE: Structurally normal valve. Doppler: Transvalvular velocity was within the normal range. There was no evidence for stenosis. Mild regurgitation. LEFT ATRIUM: The atrium was normal in size. RIGHT VENTRICLE: The cavity size was normal. Wall thickness was normal. PULMONIC VALVE: Doppler: Transvalvular velocity was within the normal range. There was no evidence for stenosis. No regurgitation. TRICUSPID VALVE: Structurally normal valve. Doppler: Transvalvular velocity was within the normal range. Mild regurgitation. PULMONARY ARTERY: The main pulmonary artery was normal-sized. Systolic pressure was within the normal range. RIGHT ATRIUM: The atrium was normal in size. PERICARDIUM: There was no pericardial effusion. SYSTEMIC VEINS: Inferior vena cava: The vessel was normal in size. BASIC MEASUREMENTS ADULT Normal Left ventricle LV internal dimension, ED, chordal level, 47.9 mm 43-52 PLAX LV internal dimension, ES, chordal level, 35.7 mm 23-38 PLAX Fractional shortening, chordal level, PLAX *25 % >29 LV posterior wall thickness, ED 11.2 mm IVS/LVPW ratio, ED 1.21 <1.3 Ventricular septum Septal thickness, ED 13.5 mm Aortic valve Leaflet separation 25 mm 15-26 Right ventricle RV internal dimension, ED, PLAX *41.3 mm 19-38 BASIC MEASUREMENTS ADULT Normal Aortic valve Leaflet separation 25 mm 15-26 Aorta Root diameter, ED 34 mm 20-37 Left atrium Anterior-posterior dimension, ES 37 mm 19-40 LA/aortic root ratio 1.09 DOPPLER MEASUREMENTS ADULT Normal Main pulmonary artery Pressure, S *40 mm Hg =30 Tricuspid valve Regurgitant peak velocity 274 cm/s Peak RV-RA gradient, S 30 mm Hg Systemic veins Estimated CVP 10 mm Hg Right ventricle RV pressure, S *40 mm Hg <30 LEGEND: Mean values are shown as u=mean value. Asterisk (*) lassiter values outside specified normal range. Prepared and signed by John De Dios [id number]
[2016-10-20] MEDS: MULTIVITAMIN INJ 10 ML, FOLIC ACID INJ 1 MG in SODIUM CHLORID 0.9% 500 ML INJ 500 ML IV SCH (16:00)
[2016-10-20 16:52] LABS: CREATINE KINASE 391 U/L (39-308); HDL CHOLESTEROL 10.4 MG/DL (40.0-60.0)
[2016-10-20 17:12] LABS: HEMOGLOBIN A1a 1.1 %; HEMOGLOBIN A1b 2.5 %; HEMOGLOBIN Ao 81.4 %; HEMOGLOBIN LA1C 2.8 %; HEMOGLOBIN P3 4.8 %
[2016-10-20 17:13] LABS: CKMB 1.1 NG/ML (0.5-3.6)
--- NOTE | 2016-10-20 18:11 | MG ---
cc: OLGA REESE M.D. Lab No: Date: 10/20/2016 Age: Sex: M Race: ELECTROENCEPHALOGRAM NUMBER [id number] TECHNIQUE 17 channel EEG. DESCRIPTION The background rhythm reveals slowing in the delta frequency roughly 3-4 Hz. Amplitude is about 20-30 microvolts. At times there is almost a burst suppression type pattern. No lateralizing features identified and no epileptic features are seen. Photic stimulation does not result in a driving response. INTERPRETATION Abnormal study consistent with severe encephalopathy. MD DESTINY Anderson/FREDDY /4:53 PM /6:10 PM
--- NOTE | 2016-10-20 20:10 | MB ---
cc: BENTON KAY M.D. DATE OF CONSULTATION 10/20/2016 REASON FOR CONSULTATION He is seen in neurological consultation. This 51-year-old with history of change in mental status. HISTORY OF THE PRESENT ILLNESS The patient was admitted yesterday. He came in in the morning. Apparently he had been in the emergency room prior to that and was discharged with UTI. Subsequently he was found in the [place] by bystanders and he was disoriented. He was unable to provide adequate history. He was admitted in the intensive care unit in the middle of the night. He was noted to have left-sided weakness. I spoke to Dr. Landry and we went over and reviewed the case. His urine toxicology was positive for opiates, amphetamines and also cannabinoids. The patient has been intubated and required sedation for agitation. I spoke to the RN taking care of the patient at bedside. The exam shows the patient to be sedated and when off sedation he is very agitated, restless and apparently not moving his left side. The pupils were small, probably reactive. Muscle stretch reflex is essentially absent, plantar responses none. IMAGING Ancillary data, the CT showed no acute pathology but the MRI is showing right basal ganglia diffusion abnormality compatible with subacute infarct. ASSESSMENT 1. Right basal ganglia acute / subacute infarct. 2. Drug abuse. 3. Sepsis. Renal impairment. 4. Possible endocarditis. 5. Possible alcohol withdrawal as well. Further neurologic evaluation. Notes which include a carotid ultrasound study, I believe already requested. The echocardiogram results just came out showing no significant abnormality. I also checked and there is no significant stenosis by the carotid ultrasound. His white count this markedly elevated. He has been initiated on aspirin therapy. EKG shows tachycardia but no atrial fibrillation. LDL is pending. EEG apparently already done, pending results. Continue the medical care, possibly switch to suppository aspirin. I follow the neurologic course. Thank you for asking us to assist in his care. MD DEBBIE Moya/FREDDY /5:19 PM /8:02 PM
[2016-10-20] MEDS: DOCUSATE SODIUM 100 MG/10 ML UDC PO SCH (20:57)
[2016-10-21] VITALS (19 sets, daily range): BP systolic 113–159; BP diastolic 68–93; PULSE 87–109; RESP 18–23; TEMP 98.7–100.1; O2SAT 92–100
[2016-10-21] MEDS: PROPOFOL 1000 MG/100 ML INJ 100 ML IV SCH ×9 (01:23→23:05)
[2016-10-21 01:26] LABS: MAGNESIUM 2.4 MG/DL (1.5-2.5)
[2016-10-21 01:27] LABS: POTASSIUM 3.4 MEQ/L (3.5-5.1)
[2016-10-21] MEDS: RESP: ALBUTEROL 2.5 MG/IPRATROPIUM 0.5 MG NEB (SCH) NEB ×4 (03:33→20:16)
[2016-10-21] MEDS: CHLORHEXIDINE GLUCONATE 2 % 1 PACK (2 CLOTHS) TOP SCH (03:49)
[2016-10-21 05:36] LABS: BLOOD GAS BASE EXCESS -2.2 mmol/L (-2-2); BLOOD GAS CARBOXYHEMOGLOBIN 1.2 % (0-4); BLOOD GAS HCO3 22 mmol/L (22-26); BLOOD GAS METHEMOGLOBIN 1.4 % (0-2); BLOOD GAS O2 HGB SATURATION 95 % (90-100); BLOOD GAS OXYGEN CONTENT 18.6 Vol % (12.0-20.0); BLOOD GAS PCO2 34 mmHg (38-42); BLOOD GAS PO2 94 mmHg (61-120); BLOOD GAS TOTAL HGB 13.9 G/DL (12.0-16.0); TEMP CORR TO 98.6
[2016-10-21 05:37] LABS: CRITICAL VALUE NO; DRAW SITE RT RADIAL; FIO2 45 %; NUMBER OF ARTERIAL PUNCTURES 1; OXYGEN DEVICE VENTILATOR; STAT NO; ULNAR PULSE PRESENT; VENT SETTINGS AC/18/550/PEEP5
[2016-10-21 06:08] LABS: AUTOMATED NEUTROPHIL # 23.6 TH/MM3 (1.8-7.7); BASOPHIL # 0.1 TH/MM3 (0-0.2); BASOPHIL % 0.3 % (0.0-2.0); HEMATOCRIT 38.3 % (39.0-51.0); LYMPH % 9.5 % (9.0-44.0); LYMPHOCYTE # 2.8 TH/MM3 (1.0-4.8); MEAN CORPUSCULAR HEMOGLOBIN 32.6 PG (27.0-34.0); MEAN CORPUSCULAR HGB CONC 34.3 % (32.0-36.0); MONO % 9.7 % (0.0-8.0); NEUT % 80.5 % (16.0-70.0); PLATELET COUNT 141 TH/MM3 (150-450); RED BLOOD COUNT 4.03 MIL/MM3 (4.50-5.90); RED CELL DISTRIBUTION WIDTH 13.6 % (11.6-17.2); WHITE BLOOD COUNT 29.4 TH/MM3 (4.0-11.0)
[2016-10-21 06:20] LABS: HEMO FLAGS AUTO DIFF
[2016-10-21 06:27] LABS: ALKALINE PHOSPHATASE 122 U/L (45-117); ALT (GPT) 40 U/L (12-78); ANION GAP 12 MEQ/L (5-15); AST (GOT) 57 U/L (15-37); BICARBONATE 23.5 MEQ/L (21.0-32.0); BLOOD UREA NITROGEN 24 MG/DL (7-18); CHLORIDE 109 MEQ/L (98-107); GLOMERULAR FILTRATION RATE 65 ML/MIN (>89); MAGNESIUM 2.5 MG/DL (1.5-2.5); SODIUM (NA) 144 MEQ/L (136-145); TOTAL BILIRUBIN ADULT 1.2 MG/DL (0.2-1.0)
[2016-10-21] MEDS: INSULIN NovoLIN REGULAR SUPPLEMENTAL SCALE SQ SCH ×4 (06:47→20:28)
[2016-10-21] MEDS: CHLORHEXIDINE 0.12% (ORAL KIT) 15 ML CUP MT SCH ×2 (07:38→20:06)
[2016-10-21] MEDS: CEFEPIME INJ 2,000 MG in SODIUM CHLORIDE 0.9% INJ 100 ML IV SCH (07:38)
[2016-10-21 07:56] LABS: BANDS 10 % (0-6); NEUTROPHIL # MANUAL DIFF 25.3 TH/MM3 (1.8-7.7); POLYS (SEG NEUTROPHILS) 76 % (16-70); WBC DIFF SAMPLE 100
[2016-10-21 07:57] LABS: PLATELET ESTIMATE SMEAR LOW (NORMAL); PLATELET MORPHOLOGY ENLARGED (NORMAL); SCAN/DIFF FINAL DIFF MANUAL
[2016-10-21 07:58] LABS: TEARDROP RBCS 1+ (NORMAL)
[2016-10-21] MEDS: SODIUM CHLORIDE 0.9% FLUSH 5 ML FLUSH IV FLUSH SCH ×2 (08:24→20:28)
[2016-10-21] MEDS: DOCUSATE SODIUM 100 MG/10 ML UDC PO SCH ×2 (08:24→20:28)
[2016-10-21] MEDS: PANTOPRAZOLE SODIUM 40 MG VIAL IV SCH (08:24)
[2016-10-21] MEDS: SENNOSIDES SYRUP 8.8 MG/5 ML CUP PO SCH (08:24)
[2016-10-21] MEDS ORDERED: Vancomycin Consult Pharmacy 1 EA OTHER SCH (08:30)
--- NOTE | 2016-10-21 08:35 | EKG ---
Date Performed: 10/19/2016 Time Performed: 23:32:54 PTAGE: 51 years EKG: Sinus rhythm . Normal ECG Compared to prior tracing no significant change DOCTOR: John De Dios Interpretating Date/Time 10/21/2016 08:34:16
--- NOTE | 2016-10-21 08:54 | HHI.PR ---
Review/Management Daily Summary 10/21 less sedated when seen this am, mildly agitated and moving right side well but severely paretic left studies seen will need prison rehab, asa and statin Subjective Subjective Comments intubated on vent Active Medications Current Medications Medications (Trade) Dose Ordered Sig/Ananya Route Start Time Stop Time Status Last Admin (NS 1000 ml Inj) 1,000 ml @ 42 mls/hr [id number] IV 10/19/16 14:24 10/20/16 13:27 (NS Flush) 2 ml BID IV FLUSH 10/19/16 21:00 10/21/16 08:24 (Protonix Inj) 40 mg DAILY IV 10/20/16 09:00 10/21/16 08:24 (Zofran Inj) 4 mg Q6H PRN IV 10/19/16 14:30 (Heparin Inj) 5,000 units Q12H SQ 10/19/16 16:00 Hold 10/19/16 15:53 Miscellaneous Information 1 Q361D XX 10/19/16 14:30 (Chlorhexidine 2% Cloth) 3 pack Taper DAILY@04 TOP 10/20/16 04:00 10/16/17 03:59 10/21/16 03:49 Chlorhexidine Gluconate 3 pack 3 pack UNSCH PRN TOP 10/19/16 14:30 Potassium Chloride 100 ml @ 50 mls/hr Q2H PRN IV 10/19/16 14:30 (KCl 20 Meq Premix Inj) 100 ml @ 50 mls/hr Q2H PRN IV 10/19/16 14:30 Potassium Chloride 40 meq 40 meq UNSCH PRN PO/TUBE 10/19/16 14:30 Potassium Chloride 100 ml @ 25 mls/hr UNSCH PRN IV 10/19/16 14:30 10/21/16 01:32 Potassium Chloride 100 ml @ 50 mls/hr Q2H PRN IV 10/19/16 14:30 10/19/16 14:48 (Magnesium Sulfate Inj/NS Inj) 100 ml @ 50 mls/hr UNSCH PRN IV 10/19/16 14:30 Magnesium Oxide 800 mg 800 mg UNSCH PRN PO 10/19/16 14:30 (Magnesium Sulfate Inj/NS Inj) 100 ml @ 50 mls/hr UNSCH PRN IV 10/19/16 14:30 Potassium Phosphate 2000 mg 2,000 mg Q4H PRN PO 10/19/16 14:30 (Sodium Phosphate Inj/NS 250 ml Inj) 250 ml @ 42 mls/hr UNSCH PRN IV 10/19/16 14:30 (KCl 40 Meq/30 ml Liq) 40 meq UNSCH PRN PO/TUBE 10/19/16 14:30 Potassium Phosphate 2000 mg 2,000 mg UNSCH PRN PO/TUBE 10/19/16 14:30 (Potassium Phosphate Inj/NS 250 ml Inj) 260 ml @ 42 mls/hr UNSCH PRN IV 10/19/16 14:30 IV Flush 2 ml 2 ml UNSCH PRN IV FLUSH 10/19/16 14:30 (Maxipime Inj/NS Inj) 100 ml @ 200 mls/hr Q8H IV 10/19/16 16:00 10/21/16 07:38 (D50w (Vial) Inj) 25 ml UNSCH PRN IV PUSH 10/19/16 14:30 (Glucagon Inj) 1 mg UNSCH PRN OTHER 10/19/16 14:30 Haloperidol Lactate 5 mg 5 mg Q6H PRN IM 10/19/16 14:45 (Mvi-12 Inj/ Folvite Inj/NS 500 ml Inj) 510.2 ml @ 125 mls/hr Q24H IV 10/19/16 16:00 10/22/16 15:59 10/20/16 16:00 (Romazicon Inj) 0.2 mg Q1M PRN IV PUSH 10/19/16 14:45 Lorazepam 1 mg 1 mg Q4H PRN IV PUSH 10/19/16 14:45 (Diprivan 1000 Mg/100ml Inj) 100 ml @ 0 mls/hr TITRATE IV 10/20/16 02:30 10/21/16 08:24 Chlorhexidine Gluconate 15 ml 15 ml BID@08,20 MT 10/20/16 08:00 10/21/16 07:38 (Vancomycin Inj/ NS 500 ml Inj) 520 ml @ 250 mls/hr Q24H IV 10/20/16 11:00 10/20/16 11:24 Miscellaneous Information SPECIFIC LAB TO BE DRAWN:VANCO TROUGH DATE TO BE DRJovany.. ONCE ONCE XX 10/22/16 10:45 10/22/16 10:46 (Senna Liq) 8.8 mg DAILY PO 10/21/16 09:00 10/21/16 08:24 Docusate Sodium 100 mg 100 mg Q12HR PO 10/20/16 21:00 10/21/16 08:24 (Vancomycin Consult Pharmacy) 0 ml @ 0 mls/hr UNSCH OTHER 10/21/16 08:30 Allergies Allergies Coded Allergies No Known Allergies (Verified11/15/12) Exam I&O / VS 10/20/16 10/20/16 10/21/16 15:00 23:00 07:00 Intake Total 1602 ml 1137 ml 825 ml Output Total 1000 ml 950 ml 1200 ml Balance 602 ml 187 ml -375 ml Intake Oral 0 ml IV Total 1602 ml 1137 ml 825 ml Output Urine Total 900 ml 900 ml 1200 ml Gastric Drainage Total 100 ml 50 ml 0 ml # Bowel Movements 0 0 0 Vital Signs Date Time Temp Pulse Resp B/P Pulse Ox O2 Delivery O2 Flow Rate FiO2 10/21/16 08:07 93 45 10/21/16 08:00 45 10/21/16 08:00 108 10/21/16 08:00 99.1 108 19 155/93 93 10/21/16 06:00 105 10/21/16 04:03 94 45 10/21/16 04:00 45 10/21/16 04:00 103 10/21/16 04:00 99.9 103 23 155/93 93 10/21/16 02:00 103 10/21/16 01:45 94 45 10/21/16 00:00 102 10/21/16 00:00 99.9 102 22 159/77 92 10/21/16 00:00 45 10/20/16 22:00 103 10/20/16 20:00 93 10/20/16 20:00 99.7 93 18 138/77 94 10/20/16 20:00 45 10/20/16 19:50 94 45 10/20/16 18:00 93 10/20/16 16:00 92 10/20/16 16:00 45 10/20/16 16:00 98.7 92 21 114/65 95 10/20/16 15:30 95 45 10/20/16 14:00 101 10/20/16 12:00 45 10/20/16 12:00 98.6 82 20 110/70 97 10/20/16 12:00 82 10/20/16 11:21 95 45 10/20/16 10:00 98 10/20/16 09:30 100 50 Objective Radiology Results Last [address] 10/20/16 0000 Signed Impressions: Service Date/Time: Thursday, October 20, 2016 03:40 - CONCLUSION: 1. No evidence of acute intracranial pathology. No masses are identified. Old right basal ganglia infarct John Hobson MD Chest X-Ray 10/20/16 0000 Signed Impressions: Service Date/Time: Thursday, October 20, 2016 03:13 - CONCLUSION: 1. Uncomplicated line placement. No evidence of pneumothorax. Satisfactory position of endotracheal tube as above. 2. Cardiomegaly and findings of vascular congestion without overt failure. This is new when compared with the prior exam. John Hobson MD Carotid Artery Ultrasound 10/20/16 0000 Signed Impressions: Service Date/Time: Thursday, October 20, 2016 14:35 - CONCLUSION: Unremarkable exam with no evidence of stenosis. Micha Wallace MD Brain MRI 10/20/16 0000 Signed Impressions: Service Date/Time: Thursday, October 20, 2016 09:50 - CONCLUSION: 1. Focal area of mild restricted diffusion in the right basal ganglia with increased signal on the flair and T2-weighted sequence characteristic of an area of subacute infarction. 2. Mild atrophy and chronic small vessel ischemic change. 3. No acute hemorrhage or mass effect. Micha Wallace MD Abdomen X-Ray 10/20/16 0000 Signed Impressions: Service Date/Time: Thursday, October 20, 2016 12:03 - CONCLUSION: Nonspecific bowel gas. Maximiliano Nielsen MD FACR Head CT 10/19/16 1159 Signed Impressions: Service Date/Time: Wednesday, October 19, 2016 13:16 - CONCLUSION: No acute pathology. No significant change has occurred compared to the prior study. Marcel Cabrera MD Chest X-Ray 10/19/16 1159 Signed Impressions: Service Date/Time: Wednesday, October 19, 2016 12:40 - CONCLUSION: No acute pulmonary infiltrates Marcel Cabrera MD Micro and Labs Laboratory Tests Test 10/20/16 10/21/16 10/21/16 10/21/16 15:15 00:15 05:10 05:24 Hemoglobin A1c 7.0 Total Creatine Kinase 391 Creatine Kinase MB 1.1 Creatine Kinase MB % 0.3 Triglycerides Level 494 Cholesterol Level 125 LDL Cholesterol HDL Cholesterol 10.4 Cholesterol/HDL Ratio 12.01 Potassium Level 3.4 Magnesium Level 2.4 2.5 White Blood Count 29.4 Red Blood Count 4.03 Hemoglobin 13.1 Hematocrit 38.3 Mean Corpuscular Volume 95.0 Mean Corpuscular Hemoglobin 32.6 Mean Corpuscular Hemoglobin 34.3 Concent Red Cell Distribution Width 13.6 Platelet Count 141 Mean Platelet Volume 11.3 Neutrophils (%) (Auto) 80.5 Lymphocytes (%) (Auto) 9.5 Monocytes (%) (Auto) 9.7 Eosinophils (%) (Auto) 0.0 Basophils (%) (Auto) 0.3 Neutrophils # (Auto) 23.6 Lymphocytes # (Auto) 2.8 Monocytes # (Auto) 2.9 Eosinophils # (Auto) 0.0 Basophils # (Auto) 0.1 CBC Comment AUTO DIFF Differential Total Cells 100 Counted Neutrophils % (Manual) 76 Band Neutrophils % 10 Lymphocytes % 5 Monocytes % 9 Neutrophils # (Manual) 25.3 Differential Comment FINAL DIFF MANUAL Platelet Estimate LOW Platelet Morphology Comment ENLARGED Tear Drop Cells 1+ Red Cell Morphology Comment Sodium Level 144 Chloride Level 109 Carbon Dioxide Level 23.5 Anion Gap 12 Blood Urea Nitrogen 24 Creatinine 1.18 Estimat Glomerular Filtration 65 Rate Random Glucose 199 Calcium Level 9.0 Phosphorus Level 1.5 Total Bilirubin 1.2 Aspartate Amino Transf 57 (AST/SGOT) Alanine Aminotransferase 40 (ALT/SGPT) Alkaline Phosphatase 122 Troponin I LESS THAN 0.02 Total Protein 6.7 Albumin 2.1 Blood Gas Puncture Site RT RADIAL Blood Gas Patient Temperature 98.6 Blood Gas HCO3 22 Blood Gas Base Excess -2.2 Blood Gas Oxygen Saturation 95 Arterial Blood pH 7.42 Arterial Blood Partial 34 Pressure CO2 Arterial Blood Partial 94 Pressure O2 Arterial Blood Oxygen Content 18.6 Arterial Blood 1.2 Carboxyhemoglobin Arterial Blood Methemoglobin 1.4 Blood Gas Hemoglobin 13.9 Oxygen Delivery Device VENTILATOR Blood Gas Ventilator Setting AC/18/550/PEEP5 Blood Gas Inspired Oxygen 45 Date/Time Procedure Status Source Growth 10/21/16 00:00 Influenza Types A,B Antigen (JJ) - Final Complete Nasal Aspirate NEGATIVE FOR FLU A AND B ANTIGEN.... 10/20/16 23:00 Legionella Antigen Received Urine Catheterized Urine Pending 10/20/16 23:00 Streptococcus pneumoniae Antigen (M Received Urine Catheterized Urine Pending 10/20/16 23:00 Influenza Types A,B Antigen (JJ) Ordered Nasal Aspirate Pending 10/20/16 04:30 Gram Stain - Final Resulted Sputum Endotracheal 10/20/16 04:30 Sputum Culture Resulted Sputum Endotracheal Pending 10/19/16 12:25 Aerobic Blood Culture - Preliminary Resulted Blood Peripheral Streptococcus Pneumoniae 10/19/16 12:25 Anaerobic Blood Culture - Preliminary Resulted Blood Peripheral Bharath Macias MD Oct 21, 2016 08:54
[2016-10-21] MEDS ORDERED: PHARMACY ORDERED LAB XX ONE (10:45)
[2016-10-21] MEDS: VANCOMYCIN INJ 2,000 MG in SODIUM CHLORID 0.9% 500 ML INJ 500 ML IV SCH (10:47)
[2016-10-21] MEDS: ACETAMINOPHEN 650 MG/20.3 ML UDC PO PRN (10:47)
[2016-10-21] MEDS: fentaNYL DRIP 250 ML IV SCH ×2 (10:48→20:29)
[2016-10-21] MEDS: LORazepam 2 MG/ML VIAL IV PUSH PRN ×2 (10:48→14:55)
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
--- NOTE | 2016-10-21 10:58 | HHI.CCPN ---
Subjective Remarks/Hospital Course 51-year-old male with history of chronic substance use and alcohol use, was recently seen in the ER apparently for UTI earlier this a.m., and discharged. This subsequent presentation to the ED today brought in by EMS, because he was found in the [place] by bystanders, disoriented,unknown LOC. According to EMS, they believe that he may have used some crack cocaine. No history was obtainable in the ED, laboratory and imaging studies were performed. The patient was noted to have leukocytosis, with a WBC count of 31, with an initial lactate of 7.3 .CT of the head showed no acute abnormality .Upon my entering the ED to examine the patient, supine in 4 point restraints,combative, not responding, but awake. He is diaphoretic and tachycardic , HR 115-120's. Critical care medicine was consulted for treatment and management. Subjective 10/20 Afebrile. Last evening, the patient was noted to be moving all 4 extremities, requiring 4. restraints in addition of the Precedex infusion. Noncommunicative, combative and motor strength 5/5. Approximately 2:30 AM, the patient was noted to be nonresponsive off sedation, left hemiplegia, with no gag reflex. The patient was emergently intubated for airway protection. ABGs were within normal limits. Repeat CT at 4 AM was unremarkable. MRI obtained today, noted mild restricted diffusion right basal ganglia characteristic of subacute infarction. One dose of aspirin was given, neurology was consulted appreciate recommendations. Carotid Doppler studies, echo pending. 10/21 Tmax 100.9. Upon sedation vacation patient noted to still have left hemiplegia, not following commands, neurological status now diminished right upper and lower extremity withdrawal to pain. Strep pneumo was noted and blood cultures antibiotics were initiated, ID was consulted, Dr. Reid schedule plans for lumbar puncture to rule out meningitis. Social work consulted for efforts to locate family members. Objective Vital Signs Date Time Temp Pulse Resp B/P Pulse Ox O2 Delivery O2 Flow Rate FiO2 10/21/16 08:07 93 45 10/21/16 08:00 108 10/21/16 08:00 99.1 19 155/93 10/19/16 19:18 Nasal Cannula 2.00 Intake and Output 10/20/16 10/20/16 10/21/16 08:00 16:00 00:00 Intake Total 1520 ml 1602 ml 1137 ml Output Total 650 ml 1000 ml 950 ml Balance 870 ml 602 ml 187 ml Result Diagram: 10/21/16 0510 10/21/16 0510 Other Results Microbiology Date/Time Procedure Status Source Growth 10/20/16 23:00 Legionella Antigen - Final Complete Urine Catheterized Urine PRESUMPTIVE NEGATIVE FOR LEGIONELLA P... 10/20/16 23:00 Streptococcus pneumoniae Antigen (M - Final Complete Pos For Pneumococcal Antigen 10/21/16 00:00 Influenza Types A,B Antigen (JJ) - Final Complete Nasal Aspirate NEGATIVE FOR FLU A AND B ANTIGEN.... Laboratory Tests Test 10/21/16 05:24 Blood Gas Puncture Site RT RADIAL Blood Gas Patient Temperature 98.6 Blood Gas HCO3 22 mmol/L (22-26) Blood Gas Base Excess -2.2 mmol/L (-2-2) Blood Gas Oxygen Saturation 95 % (90-100) Arterial Blood pH 7.42 (7.380-7.420) Arterial Blood Partial 34 mmHg (38-42) Pressure CO2 Arterial Blood Partial 94 mmHg Pressure O2 (61-120) Arterial Blood Oxygen Content 18.6 Vol % (12.0-20.0) Arterial Blood 1.2 % (0-4) Carboxyhemoglobin Arterial Blood Methemoglobin 1.4 % (0-2) Blood Gas Hemoglobin 13.9 G/DL (12.0-16.0) Oxygen Delivery Device VENTILATOR Blood Gas Ventilator Setting AC/18/550/PEEP5 Blood Gas Inspired Oxygen 45 % Imaging Last Impressions Head CT 10/20/16 0000 Signed Impressions: Service Date/Time: Thursday, October 20, 2016 03:40 - CONCLUSION: 1. No evidence of acute intracranial pathology. No masses are identified. Old right basal ganglia infarct John Hobson MD Chest X-Ray 10/20/16 0000 Signed Impressions: Service Date/Time: Thursday, October 20, 2016 03:13 - CONCLUSION: 1. Uncomplicated line placement. No evidence of pneumothorax. Satisfactory position of endotracheal tube as above. 2. Cardiomegaly and findings of vascular congestion without overt failure. This is new when compared with the prior exam. John Hobson MD Carotid Artery Ultrasound 10/20/16 0000 Signed Impressions: Service Date/Time: Thursday, October 20, 2016 14:35 - CONCLUSION: Unremarkable exam with no evidence of stenosis. Micha Wallace MD Brain MRI 10/20/16 0000 Signed Impressions: Service Date/Time: Thursday, October 20, 2016 09:50 - CONCLUSION: 1. Focal area of mild restricted diffusion in the right basal ganglia with increased signal on the flair and T2-weighted sequence characteristic of an area of subacute infarction. 2. Mild atrophy and chronic small vessel ischemic change. 3. No acute hemorrhage or mass effect. Micha Wallace MD Abdomen X-Ray 10/20/16 0000 Signed Impressions: Service Date/Time: Thursday, October 20, 2016 12:03 - CONCLUSION: Nonspecific bowel gas. Maximiliano Nielsen MD FACR Last [address] 10/20/16 0000 Signed Impressions: Service Date/Time: Thursday, October 20, 2016 03:40 - CONCLUSION: 1. No evidence of acute intracranial pathology. No masses are identified. Old right basal ganglia infarct John Hobson MD Chest X-Ray 10/20/16 0000 Signed Impressions: Service Date/Time: Thursday, October 20, 2016 03:13 - CONCLUSION: 1. Uncomplicated line placement. No evidence of pneumothorax. Satisfactory position of endotracheal tube as above. 2. Cardiomegaly and findings of vascular congestion without overt failure. This is new when compared with the prior exam. John Hobson MD Brain MRI 10/20/16 0000 Signed Impressions: Service Date/Time: Thursday, October 20, 2016 09:50 - CONCLUSION: 1. Focal area of mild restricted diffusion in the right basal ganglia with increased signal on the flair and T2-weighted sequence characteristic of an area of subacute infarction. 2. Mild atrophy and chronic small vessel ischemic change. 3. No acute hemorrhage or mass effect. Micha Wallace MD Last Impressions Head CT 10/19/16 1159 Signed Impressions: Service Date/Time: Wednesday, October 19, 2016 13:16 - CONCLUSION: No acute pathology. No significant change has occurred compared to the prior study. Marcel Cabrera MD Chest X-Ray 10/19/16 1159 Signed Impressions: Service Date/Time: Wednesday, October 19, 2016 12:40 - CONCLUSION: No acute pulmonary infiltrates Marcel Cabrera MD Objective Remarks GENERAL: Critically ill-appearing male intubated and sedated. SKIN: Warm and dry. HEAD: Atraumatic. Normocephalic. EYES: Pupils equal and round, 2 mm. No scleral icterus, or nystagmus. No injection or drainage. ENT: No nasal bleeding or discharge. Mucous membranes pink and moist. Orotracheally intubated NECK: Trachea midline. No JVD. CARDIOVASCULAR: Regular rate, and regular rhythm. RESPIRATORY: Mechanical ventilation Clear to auscultation. Breath sounds equal bilaterally. GASTROINTESTINAL: Abdomen soft, non-tender, nondistended. No guarding. Well- healed midline abdominal scar noted OGT in situ MUSCULOSKELETAL: No obvious deformities. NEUROLOGICAL:GCS 3T. Off sedation ,pt not following commands, withdrawal to pain , right upper and lower extremity. Procedures Planned lumbar puncture Urinary Catheter: Yes Campbell insert reason: Measure Accurate Output Date of Insertion: Oct 19, 2016 Vascular Central Line Catheter: Yes Date of Insertion: Oct 20, 2016 Line: Central Venous Catheter Side: Left Location: Subclavian A/P Assessment and Plan Plan by systems: Neurologic: Toxic encephalopathy versus metabolic encephalopathy Alcohol use disorder Right Subacute basal ganglia infarct Possible meningitis -GCS 3T Propofol infusion for ventilator synchrony -CT 10/19no acute pathology, 10/20- Old right basal ganglia infarct -MRI 10/20-mild restricted diffusion right basal ganglia,characteristic of subacute infarction -ASA 325 x 1 dose -Obtain carotid Doppler [id number] results -10/19 Expanded urine tox screen pending, positive for amphetamines, cannabinoids , opiates -Neurology consult- Dr. Macias -Monitor for alcohol withdrawal-CIWA protocol,Haldol -Monitor for seizure activity -Planned lumbar puncture today follow-up results -10/20 EEG-severe encephalopathy -Propofol infusion for ventilator synchrony -Multivitamin IV bag 1 days, then daily thiamine and folate Respiratory: -Mechanical ventilation-AC 18/550/.45/5 -Ventilator bundle -Maintain O2 sat greater than 92% -Monitor ABGs -Daily sedation vacation -Bronchodilators scheduled every 4 hours, every 2 hours when necessary -Maintain head of bed 30 Cardiovascular: Tachycardia-resolved -Normotensive at this time, heart rate 115, will avoid beta blockers at this time secondary to possible cocaine use -Follow up serial EKG 10/19 sinus tach, LAE -Initial troponin 0.06->0.14->0.06 down trended -F/U echo-rule out endocarditis-with LAE - Planned ROSIBEL 10/22, rule out thrombus, vegetations Renal: Dehydration-resolved Renal insufficiency -NS @ 42cc/hr -Creatinine improving now 1.18, continue to monitor -Monitor BMP -- Strict I/Os FEN/GI: Hypokalemia Hypophosphatemia -Replete electrolytes per ICU protocol -Begin tube feeds, vital high protein goal 55 cc/hour -Placement of OGT, follow-up KUB, begin tube feeds -Protonix GI prophylaxis -Bowel regimen senna, colace Heme/ID: Persistent Leukocytosis Sepsis Meningitis-possible strep pneumo -ID consulted -Lactate 1.5 -WBC 31-->27.9 ->29 today -Empiric antibioticscefepime and vancomycin (day 3) -10/19 Blood cultures-strep pneumo -10/19 Urine cultures-strep pneumo -Lumbar puncture-noted 50 cc of purulent drainage, cultures results pending -Decadron 10 mg every 6 hours 4 days Endocrine: Diabetes mellitus -Glucose monitoring every 6 hours per ICU protocol, low-dose Novolin regimen -hemoglobin A1C 7.1 -- SSI Prophylaxis: GI Prophylaxis Protonix DVT Prophylaxis -- SCDs Heparin SQ BID Lines: PIV's x2. Central line [facility] (10/20) Dispo: This patient remains critically ill with one or more organ systems which are or may become a threat to life. I have spent in excess of 37 minutes discontinuously in the care and management of this patient. This time is exclusive of procedures, and includes, but is not limited to, evaluation of the patient, review of the medical record, discussions with family, consultants, nursing staff, or respiratory therapy, and documentation in the medical record. Physician Nicole Li MD Oct 21, 2016 10:58
[2016-10-21] MEDS: cefTRIAXone INJ 2,000 MG in SODIUM CHLORIDE 0.9% INJ 100 ML IV SCH ×2 (11:20→23:06)
[2016-10-21] MEDS: SODIUM CHLOR 0.9% 1000 ML INJ 1,000 ML IV SCH (13:08)
--- NOTE | 2016-10-21 16:06 | OTSOAPIP ---
TIME SESSION COMPLETED: PM TREATMENT TIME: 0 MINS. CHART REVIEWED. AWAITING RESTART ORDER, PATIENT OFF FLOOR WITH NURSE, WILL RESUME ONCE ORDER HAS BEEN RECEIVED. PLAN: WILL AWAIT RESTART ORDERS Therapist: SUHAIL MAST OTVeronica/Eleanor Signature on file
--- NOTE | 2016-10-21 16:18 | HHI.PR ---
Addendum to Inpatient Note Addendum Reason: Additional Documentation Additional Information Recd call from Dr.Scott Dumont Patient with purulent appearing CSF. d/w and RN for patient. Will add Rifampin IV for synergy for resistant Strep Pneumo based on initial report in Micro Blood cultures. Continue Ceftriaxone IV Continue Vanco IV Cardiology consult for ROSIBEL to look for septal defects, vegetations. Would like a family meeting or discussion with POA as patients prognosis is guarded given the above finding and high likelihood of neurological defect. Pao Reid MD Oct 21, 2016 16:17
--- NOTE | 2016-10-21 16:22 | PD.RAD ---
Post Procedure Progress Note Pre Procedure Diagnosis: (1) Altered mental status (2) Sepsis Post Procedure Diagnosis: (1) Altered mental status (2) Sepsis Procedure Date: Oct 21, 2016 Supervising Radiologist: Melvin Nielsen Anesthesia: Local Plan of Activity Patient to Unit: Critical Care Patient Condition: Critical Additional Comments: LP completed. 15cc of Pus collected. Results called to Dr. Damon See PACS Report for procedural detail/treatment Melvin Nielsen MD Oct 21, 2016 16:22
[2016-10-21] MEDS: MULTIVITAMIN INJ 10 ML, FOLIC ACID INJ 1 MG in SODIUM CHLORID 0.9% 500 ML INJ 500 ML IV SCH (16:46)
[2016-10-21 16:51] LABS: LACTIC ACID,CSF 15.9 MMOL/L (0.0-3.0)
[2016-10-21 17:09] LABS: GROSS BLOOD TUBE #1 2+ (0); GROSS BLOOD TUBE #2 1+ (0); GROSS BLOOD TUBE #3 TRACE (0); SUPERNATE COLOR TUBE #1 XANTHOCHROMIC (CLEAR); SUPERNATE COLOR TUBE #2 XANTHOCHROMIC (CLEAR); SUPERNATE COLOR TUBE #3 XANTHOCHROMIC (CLEAR); VOLUME TUBE # 3 1.5 ML; WBC TUBE #1 218595 /MM3 (0-10)
[2016-10-21 17:10] LABS: GROSS BLOOD TUBE #4 TRACE (0); SUPERNATE COLOR TUBE #4 XANTHOCHROMIC (CLEAR); VOLUME TUBE # 4 2.8 ML
[2016-10-21 17:21] LABS: CSF LYMPHOCYTES 4 %; CSF MONOCYTES 4 %; CSF NEUTROPHILS 82 %
[2016-10-21] MEDS: DEXAMETHASONE SOD PHOS 20 MG/5 ML VIAL IV SCH (18:19)
[2016-10-21 19:27] LABS: POTASSIUM 3.8 MEQ/L (3.5-5.1)
[2016-10-21] MEDS: RIFAMPIN INJ 300 MG in SODIUM CHLORIDE 0.9% INJ 100 ML IV SCH (20:28)
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
[2016-10-22] VITALS (16 sets, daily range): BP systolic 108–150; BP diastolic 58–85; PULSE 67–104; RESP 18–24; TEMP 98.5–103; O2SAT 92–97
[2016-10-22] MEDS: LORazepam 2 MG/ML VIAL IV PUSH PRN (00:15)
[2016-10-22] MEDS: CHLORHEXIDINE GLUCONATE 2 % 1 PACK (2 CLOTHS) TOP SCH (00:16)
[2016-10-22] MEDS: DEXAMETHASONE SOD PHOS 20 MG/5 ML VIAL IV SCH ×5 (00:16→23:41)
[2016-10-22] MEDS: PROPOFOL 1000 MG/100 ML INJ 100 ML IV SCH ×3 (02:07→12:21)
[2016-10-22] MEDS: RESP: ALBUTEROL 2.5 MG/IPRATROPIUM 0.5 MG NEB (SCH) NEB ×4 (03:29→19:37)
--- NOTE | 2016-10-22 05:04 | RADRPT ---
EXAM DATE/TIME: 10/22/2016 03:50 [facility] COMPARISON: CHEST SINGLE AP, October 20, 2016, 3:13. INDICATIONS : Shortness of breath, possible pulmonary disease. MEDICAL HISTORY : None. SURGICAL HISTORY : None. ENCOUNTER: Subsequent ACUITY: 3 days PAIN SCORE: Non-responsive. LOCATION: Bilateral chest FINDINGS: The cardiac silhouette is normal in transverse diameter. There is mild perihilar edema. The findings are improved when compared with the prior exam. No pleural effusions are identified. CONCLUSION: 1. Resolving perihilar edema John Hobson MD on October 22, 2016 at 5:02 Board Certified Radiologist. This report was verified electronically.
[2016-10-22 05:20] LABS: HEMATOCRIT 36.6 % (39.0-51.0); MEAN CELL VOLUME 95.8 FL (80.0-100.0); MEAN CORPUSCULAR HEMOGLOBIN 32.2 PG (27.0-34.0); MEAN CORPUSCULAR HGB CONC 33.6 % (32.0-36.0); PLATELET COUNT 196 TH/MM3 (150-450); RED BLOOD COUNT 3.82 MIL/MM3 (4.50-5.90); RED CELL DISTRIBUTION WIDTH 14.1 % (11.6-17.2); REVIEW FLAG FINAL; WHITE BLOOD COUNT 17.9 TH/MM3 (4.0-11.0)
[2016-10-22 05:43] LABS: BICARBONATE 23.8 MEQ/L (21.0-32.0); MAGNESIUM 2.3 MG/DL (1.5-2.5); POTASSIUM 3.9 MEQ/L (3.5-5.1)
[2016-10-22 05:49] LABS: BLOOD GAS BASE EXCESS 0.7 mmol/L (-2-2); BLOOD GAS CARBOXYHEMOGLOBIN 1.1 % (0-4); BLOOD GAS HCO3 25 mmol/L (22-26); BLOOD GAS METHEMOGLOBIN 1.6 % (0-2); BLOOD GAS O2 HGB SATURATION 94 % (90-100); BLOOD GAS OXYGEN CONTENT 18.3 Vol % (12.0-20.0); BLOOD GAS PCO2 40 mmHg (38-42); BLOOD GAS PO2 84 mmHg (61-120); BLOOD GAS TOTAL HGB 13.8 G/DL (12.0-16.0); CRITICAL VALUE NO; OXYGEN DEVICE VENTILATOR; TEMP CORR TO 98.6
[2016-10-22 05:50] LABS: DRAW SITE RT RADIAL; FIO2 40 %; NUMBER OF ARTERIAL PUNCTURES 1; STAT NO; ULNAR PULSE PRESENT
[2016-10-22] MEDS: INSULIN NovoLIN REGULAR SUPPLEMENTAL SCALE SQ SCH ×4 (05:50→20:23)
[2016-10-22] MEDS: ACETAMINOPHEN 650 MG/20.3 ML UDC PO PRN (05:50)
[2016-10-22] MEDS: PANTOPRAZOLE SODIUM 40 MG VIAL IV SCH (08:13)
[2016-10-22] MEDS: fentaNYL DRIP 250 ML IV SCH (08:13)
[2016-10-22] MEDS: SENNOSIDES SYRUP 8.8 MG/5 ML CUP PO SCH (08:13)
[2016-10-22] MEDS: DOCUSATE SODIUM 100 MG/10 ML UDC PO SCH ×2 (08:13→20:22)
[2016-10-22] MEDS: RIFAMPIN INJ 300 MG in SODIUM CHLORIDE 0.9% INJ 100 ML IV SCH ×2 (08:13→20:22)
[2016-10-22] MEDS: CHLORHEXIDINE 0.12% (ORAL KIT) 15 ML CUP MT SCH ×2 (08:13→20:23)
[2016-10-22] MEDS: SODIUM CHLORIDE 0.9% FLUSH 5 ML FLUSH IV FLUSH SCH ×2 (08:14→20:23)
--- NOTE | 2016-10-22 08:28 | RADRPT ---
EXAM DATE/TIME: 10/21/2016 15:20 [facility] COMPARISON: No previous studies available for comparison. INDICATIONS : Patient with history of meningitis in need of lumbar puncture with opening pressures. MEDICAL HISTORY : 1. Sepsis 2.Encephalopathy 3.Strep pneumo bacteremia SURGICAL HISTORY : 1.Exploratory laparotomy ENCOUNTER: Initial ACUITY: 3 days PAIN SCORE: Non-responsive LUMBAR PUNCTURE TIME: 1534 hours FLUORO TIME: 3.2 minutes ACCESS LEVEL: L3-4 OPENING PRESSURE: 32 cm of water CLOSING PRESSURE: Not requested. FLUID: 12 cc of cloudy, yellow CSF was collected and sent to the laboratory for analysis. PROCEDURE : 1. Fluoroscopic guided lumbar puncture. 2. Recording of opening pressure. Consent for the procedure was deemed medically emergent. The patient has altered mental status and is intubated. The site was prepped in sterile fashion. Full sterile technique was used, including cap , mask, sterile gloves and gown and a large sterile sheet. Hand hygiene and 2% chlorhexidine and/or betadine/alcohol prep was utilized per protocol for cutaneous antisepsis. The skin and subcutaneous tissues were infiltrated with local anesthetic solution. With fluoroscopic guidance the lumbar thecal sac was punctured at the above level described above and the opening pressure was recorded. The above described fluid was removed without difficulty. The patient tolerated the procedure well and there were no complications. CONCLUSION: Uncomplicated fluoroscopically guided lumbar puncture with pressures as above. 12 cc of pus was colle cted and sent to the lab. Dr. Reid was notified. Melvin Nielsen MD on October 22, 2016 at 8:24 Board Certified Radiologist. This report was verified electronically.
[2016-10-22] MEDS: POTASSIUM PHOSPHATE MONOBASIC 500 MG TAB PO PRN (08:49)
--- NOTE | 2016-10-22 08:53 | HHI.PR ---
Addendum to Inpatient Note Addendum Reason: Additional Documentation Additional Information It is my opinion patient needs a ROSIBEL for following reasons: 1. To determine if this is endocarditis helps determine length of treatment 2. Look for septal defects: to see if pt at risk of ongoing embolization. D/w above on 10/21/16 Pao Reid MD Oct 22, 2016 08:53
[2016-10-22] MEDS ORDERED: PHARMACY ORDERED LAB XX ONE (10:45)
[2016-10-22] MEDS: cefTRIAXone INJ 2,000 MG in SODIUM CHLORIDE 0.9% INJ 100 ML IV SCH ×2 (10:57→23:41)
[2016-10-22] MEDS: VANCOMYCIN INJ 2,000 MG in SODIUM CHLORID 0.9% 500 ML INJ 500 ML IV SCH (10:57)
[2016-10-22] MEDS: SODIUM CHLOR 0.9% 1000 ML INJ 1,000 ML IV SCH (12:22)
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
--- NOTE | 2016-10-22 16:12 | PD.CARD.PN ---
Subjective Subjective Remarks No events over night Objective Medications Current Medications Medications (Trade) Dose Ordered Sig/Ananya Route Start Time Stop Time Status Last Admin (NS 1000 ml Inj) 1,000 ml @ 42 mls/hr [id number] IV 10/19/16 14:24 10/22/16 12:22 (NS Flush) 2 ml BID IV FLUSH 10/19/16 21:00 10/22/16 08:14 (Protonix Inj) 40 mg DAILY IV 10/20/16 09:00 10/22/16 08:13 (Zofran Inj) 4 mg Q6H PRN IV 10/19/16 14:30 (Heparin Inj) 5,000 units Q12H SQ 10/19/16 16:00 Hold 10/19/16 15:53 Miscellaneous Information 1 [id number] XX 10/19/16 14:30 (Chlorhexidine 2% Cloth) 3 pack Taper DAILY@04 TOP 10/20/16 04:00 10/16/17 03:59 10/22/16 00:16 Chlorhexidine Gluconate 3 pack 3 pack UNSCH PRN TOP 10/19/16 14:30 Potassium Chloride 100 ml @ 50 mls/hr Q2H PRN IV 10/19/16 14:30 (KCl 20 Meq Premix Inj) 100 ml @ 50 mls/hr Q2H PRN IV 10/19/16 14:30 Potassium Chloride 40 meq 40 meq UNSCH PRN PO/TUBE 10/19/16 14:30 10/21/16 10:51 Potassium Chloride 100 ml @ 25 mls/hr UNSCH PRN IV 10/19/16 14:30 10/21/16 01:32 Potassium Chloride 100 ml @ 50 mls/hr Q2H PRN IV 10/19/16 14:30 10/19/16 14:48 (Magnesium Sulfate Inj/NS Inj) 100 ml @ 50 mls/hr UNSCH PRN IV 10/19/16 14:30 Magnesium Oxide 800 mg 800 mg UNSCH PRN PO 10/19/16 14:30 (Magnesium Sulfate Inj/NS Inj) 100 ml @ 50 mls/hr UNSCH PRN IV 10/19/16 14:30 Potassium Phosphate 2000 mg 2,000 mg Q4H PRN PO 10/19/16 14:30 10/22/16 08:49 (Sodium Phosphate Inj/NS 250 ml Inj) 250 ml @ 42 mls/hr UNSCH PRN IV 10/19/16 14:30 (KCl 40 Meq/30 ml Liq) 40 meq UNSCH PRN PO/TUBE 10/19/16 14:30 Potassium Phosphate 2000 mg 2,000 mg UNSCH PRN PO/TUBE 10/19/16 14:30 (Potassium Phosphate Inj/NS 250 ml Inj) 260 ml @ 42 mls/hr UNSCH PRN IV 10/19/16 14:30 (NS Flush) 2 ml UNSCH PRN IV FLUSH 10/19/16 14:30 (D50w (Vial) Inj) 25 ml UNSCH PRN IV PUSH 10/19/16 14:30 (Glucagon Inj) 1 mg UNSCH PRN OTHER 10/19/16 14:30 (Haldol Inj) 5 mg Q6H PRN IM 10/19/16 14:45 (Romazicon Inj) 0.2 mg Q1M PRN IV PUSH 10/19/16 14:45 Lorazepam 1 mg 1 mg Q4H PRN IV PUSH 10/19/16 14:45 (Diprivan 1000 Mg/100ml Inj) 100 ml @ 0 mls/hr TITRATE IV 10/20/16 02:30 10/22/16 12:21 (Peridex 0.12% Liq) 15 ml BID@08,20 MT 10/20/16 08:00 10/22/16 08:13 (Senna Liq) 8.8 mg DAILY PO 10/21/16 09:00 10/22/16 08:13 Docusate Sodium 100 mg 100 mg Q12HR PO 10/20/16 21:00 10/22/16 08:13 (Vancomycin Consult Pharmacy) 0 ml @ 0 mls/hr UNSCH OTHER 10/21/16 08:30 (Tylenol 650 Mg/ 20 ml Liq) 650 mg Q6H PRN PO 10/21/16 11:00 10/22/16 05:50 Lorazepam 2 mg 2 mg Q4H PRN IV PUSH 10/21/16 11:00 10/22/16 00:15 Fentanyl Citrate 250 ml @ 0 mls/hr TITRATE IV 10/21/16 11:00 10/22/16 08:13 Ceftriaxone Sodium 2000 mg/ Sodium Chloride 100 ml @ 200 mls/hr Q12H IV 10/21/16 11:00 10/22/16 10:57 (Rifampin Inj/NS Inj) 100 ml @ 100 mls/hr Q12H IV 10/21/16 20:00 10/22/16 08:13 Dexamethasone Sodium Phosphate 10 mg 10 mg Q6HR IV 10/21/16 18:00 10/25/16 18:00 10/22/16 12:22 (Vancomycin Inj/ NS 500 ml Inj) 515 ml @ 257.5 mls/ hr Q12H IV 10/23/16 03:00 Miscellaneous Information SPECIFIC LAB TO BE ELAINE... ONCE ONCE XX 10/24/16 02:45 10/24/16 02:46 Vital Signs / I&O Vital Signs Date Time Temp Pulse Resp B/P Pulse Ox O2 Delivery O2 Flow Rate FiO2 10/22/16 12:26 94 45 10/22/16 09:07 92 45 10/22/16 08:00 45 10/22/16 06:00 101 10/22/16 04:03 94 45 10/22/16 04:00 45 10/22/16 04:00 100 10/22/16 04:00 101.2 100 18 113/63 95 10/22/16 02:00 100 10/22/16 01:02 94 45 10/22/16 00:00 45 10/22/16 00:00 104 10/22/16 00:00 98.5 104 24 150/85 93 10/21/16 22:00 97 10/21/16 20:16 95 45 10/21/16 20:00 88 10/21/16 20:00 98.7 88 18 130/79 96 10/21/16 20:00 45 10/21/16 18:00 87 I/O 10/21/16 10/21/16 10/21/16 10/22/16 10/22/16 10/22/16 07:00 15:00 23:00 07:00 15:00 23:00 Intake Total 825 ml 1438 ml 1474 ml 1170 ml Output Total 1200 ml 1000 ml 850 ml 11 ml Balance -375 ml 438 ml 624 ml 1159 ml Intake Oral 0 ml 0 ml 0 ml IV Total 825 ml 1365 ml 1264 ml 1100 ml Tube Feeding 13 ml 150 ml 40 ml Tube Irrigant 60 ml 60 ml 30 ml Output Urine Total 1200 ml 1000 ml 850 ml 11 ml Gastric Drainage Total 0 ml 0 ml # Bowel Movements 0 0 0 0 Physical Exam GENERAL: Sedated on the vent SKIN: Warm and dry. HEAD: Atraumatic. Normocephalic. EYES: Pupils equal and round. ENT: No nasal bleeding or discharge. Mucous membranes pink and moist. NECK: Trachea midline. No JVD. CARDIOVASCULAR: Regular rate and rhythm. RESPIRATORY: No accessory muscle use. Decreased breath sounds bilaterally GASTROINTESTINAL: Abdomen soft, non-tender, nondistended. Hepatic and splenic margins not palpable. MUSCULOSKELETAL: Extremities without clubbing, cyanosis, or edema. No obvious deformities. NEUROLOGICAL: Sedated on the vent PSYCHIATRIC: Unable to obtain Laboratory Laboratory Tests Test 10/22/16 10/22/16 10/22/16 04:30 05:40 11:00 White Blood Count 17.9 TH/MM3 Red Blood Count 3.82 MIL/MM3 Hemoglobin 12.3 GM/DL Hematocrit 36.6 % Mean Corpuscular Volume 95.8 FL Mean Corpuscular Hemoglobin 32.2 PG Mean Corpuscular Hemoglobin 33.6 % Concent Red Cell Distribution Width 14.1 % Platelet Count 196 TH/MM3 Mean Platelet Volume 10.3 FL Sodium Level 148 MEQ/L Potassium Level 3.9 MEQ/L Chloride Level 114 MEQ/L Carbon Dioxide Level 23.8 MEQ/L Anion Gap 10 MEQ/L Blood Urea Nitrogen 21 MG/DL Creatinine 0.97 MG/DL Estimat Glomerular Filtration 82 ML/MIN Rate Random Glucose 259 MG/DL Calcium Level 9.0 MG/DL Phosphorus Level 1.5 MG/DL Magnesium Level 2.3 MG/DL Blood Gas Puncture Site RT RADIAL Blood Gas Patient Temperature 98.6 Blood Gas HCO3 25 mmol/L Blood Gas Base Excess 0.7 mmol/L Blood Gas Oxygen Saturation 94 % Arterial Blood pH 7.41 Arterial Blood Partial 40 mmHg Pressure CO2 Arterial Blood Partial 84 mmHg Pressure O2 Arterial Blood Oxygen Content 18.3 Vol % Arterial Blood 1.1 % Carboxyhemoglobin Arterial Blood Methemoglobin 1.6 % Blood Gas Hemoglobin 13.8 G/DL Oxygen Delivery Device VENTILATOR Blood Gas Ventilator Setting Blood Gas Inspired Oxygen 40 % Vancomycin Level Trough 6.1 MCG/ML Assessment and Plan Problem List: (1) Sepsis (2) Altered mental status (3) Endocarditis of aortic valve (4) UTI (urinary tract infection) Assessment and Plan 1) s/p ROSIBEL, mobile mass on the aortic valve, concerning for endocarditis 2) Will discuss with ID 3) Supportive care Edison Ritter DO Oct 22, 2016 16:11
--- NOTE | 2016-10-22 16:13 | HHI.CCPN ---
Subjective Remarks/Hospital Course 51-year-old male with history of chronic substance use and alcohol use, was recently seen in the ER apparently for UTI earlier this a.m., and discharged. This subsequent presentation to the ED today brought in by EMS, because he was found in the [place] by bystanders, disoriented,unknown LOC. According to EMS, they believe that he may have used some crack cocaine. No history was obtainable in the ED, laboratory and imaging studies were performed. The patient was noted to have leukocytosis, with a WBC count of 31, with an initial lactate of 7.3 .CT of the head showed no acute abnormality .Upon my entering the ED to examine the patient, supine in 4 point restraints,combative, not responding, but awake. He is diaphoretic and tachycardic , HR 115-120's. Critical care medicine was consulted for treatment and management. Subjective 10/20 Afebrile. Last evening, the patient was noted to be moving all 4 extremities, requiring 4. restraints in addition of the Precedex infusion. Noncommunicative, combative and motor strength 5/5. Approximately 2:30 AM, the patient was noted to be nonresponsive off sedation, left hemiplegia, with no gag reflex. The patient was emergently intubated for airway protection. ABGs were within normal limits. Repeat CT at 4 AM was unremarkable. MRI obtained today, noted mild restricted diffusion right basal ganglia characteristic of subacute infarction. One dose of aspirin was given, neurology was consulted appreciate recommendations. Carotid Doppler studies, echo pending. 10/21 Tmax 100.9. Upon sedation vacation patient noted to still have left hemiplegia, not following commands, neurological status now diminished right upper and lower extremity withdrawal to pain. Strep pneumo was noted and blood cultures antibiotics were initiated, ID was consulted, Dr. Reid schedule plans for lumbar puncture to rule out meningitis. Social work consulted for efforts to locate family members. 10/22 Lumbar puncture obtained revealing pus,noted today gram positive cocci. No change in neurological status off sedation, the patient withdraws from pain with the right upper and lower extremity. ROSIBEL pending today. Objective Vital Signs Date Time Temp Pulse Resp B/P Pulse Ox O2 Delivery O2 Flow Rate FiO2 10/22/16 12:26 94 45 10/22/16 06:00 101 10/22/16 04:00 101.2 18 113/63 10/19/16 19:18 Nasal Cannula 2.00 Intake and Output 10/21/16 10/21/16 10/22/16 08:00 16:00 00:00 Intake Total 825 ml 1438 ml 1474 ml Output Total 1200 ml 1000 ml 850 ml Balance -375 ml 438 ml 624 ml Result Diagram: 10/22/16 0430 10/22/16 0430 Other Results Microbiology Date/Time Procedure Status Source Growth 10/20/16 23:00 Legionella Antigen - Final Complete Urine Catheterized Urine PRESUMPTIVE NEGATIVE FOR LEGIONELLA P... 10/20/16 23:00 Streptococcus pneumoniae Antigen (M - Final Complete Pos For Pneumococcal Antigen 10/21/16 00:00 Influenza Types A,B Antigen (JJ) - Final Complete Nasal Aspirate NEGATIVE FOR FLU A AND B ANTIGEN.... Laboratory Tests Test 10/22/16 05:40 Blood Gas Puncture Site RT RADIAL Blood Gas Patient Temperature 98.6 Blood Gas HCO3 25 mmol/L (22-26) Blood Gas Base Excess 0.7 mmol/L (-2-2) Blood Gas Oxygen Saturation 94 % (90-100) Arterial Blood pH 7.41 (7.380-7.420) Arterial Blood Partial 40 mmHg (38-42) Pressure CO2 Arterial Blood Partial 84 mmHg Pressure O2 (61-120) Arterial Blood Oxygen Content 18.3 Vol % (12.0-20.0) Arterial Blood 1.1 % (0-4) Carboxyhemoglobin Arterial Blood Methemoglobin 1.6 % (0-2) Blood Gas Hemoglobin 13.8 G/DL (12.0-16.0) Oxygen Delivery Device VENTILATOR Blood Gas Ventilator Setting Blood Gas Inspired Oxygen 40 % Imaging Last Impressions Head CT 10/20/16 0000 Signed Impressions: Service Date/Time: Thursday, October 20, 2016 03:40 - CONCLUSION: 1. No evidence of acute intracranial pathology. No masses are identified. Old right basal ganglia infarct John Hobson MD Chest X-Ray 10/20/16 0000 Signed Impressions: Service Date/Time: Thursday, October 20, 2016 03:13 - CONCLUSION: 1. Uncomplicated line placement. No evidence of pneumothorax. Satisfactory position of endotracheal tube as above. 2. Cardiomegaly and findings of vascular congestion without overt failure. This is new when compared with the prior exam. John Hobson MD Carotid Artery Ultrasound 2/13/17 0000 Signed Impressions: Service Date/Time: Thursday, October 20, 2016 14:35 - CONCLUSION: Unremarkable exam with no evidence of stenosis. Micha Wallace MD Brain MRI 10/20/16 0000 Signed Impressions: Service Date/Time: Thursday, October 20, 2016 09:50 - CONCLUSION: 1. Focal area of mild restricted diffusion in the right basal ganglia with increased signal on the flair and T2-weighted sequence characteristic of an area of subacute infarction. 2. Mild atrophy and chronic small vessel ischemic change. 3. No acute hemorrhage or mass effect. Micha Wallace MD Abdomen X-Ray 10/20/16 0000 Signed Impressions: Service Date/Time: Thursday, October 20, 2016 12:03 - CONCLUSION: Nonspecific bowel gas. Maximiliano Nielsen MD FACR Last [address] 10/20/16 0000 Signed Impressions: Service Date/Time: Thursday, October 20, 2016 03:40 - CONCLUSION: 1. No evidence of acute intracranial pathology. No masses are identified. Old right basal ganglia infarct John Hobson MD Chest X-Ray 10/20/16 0000 Signed Impressions: Service Date/Time: Thursday, October 20, 2016 03:13 - CONCLUSION: 1. Uncomplicated line placement. No evidence of pneumothorax. Satisfactory position of endotracheal tube as above. 2. Cardiomegaly and findings of vascular congestion without overt failure. This is new when compared with the prior exam. John Hobson MD Brain MRI 10/20/16 0000 Signed Impressions: Service Date/Time: Thursday, October 20, 2016 09:50 - CONCLUSION: 1. Focal area of mild restricted diffusion in the right basal ganglia with increased signal on the flair and T2-weighted sequence characteristic of an area of subacute infarction. 2. Mild atrophy and chronic small vessel ischemic change. 3. No acute hemorrhage or mass effect. Micha Wallace MD Last Impressions Head CT 10/19/16 1159 Signed Impressions: Service Date/Time: Wednesday, October 19, 2016 13:16 - CONCLUSION: No acute pathology. No significant change has occurred compared to the prior study. Marcel Cabrera MD Chest X-Ray 10/19/16 1159 Signed Impressions: Service Date/Time: Wednesday, October 19, 2016 12:40 - CONCLUSION: No acute pulmonary infiltrates Marcel Cabrera MD Objective Remarks GENERAL: Critically ill-appearing male intubated and sedated. SKIN: Warm and dry. HEAD: Atraumatic. Normocephalic. EYES: Pupils equal and round, 2 mm. No scleral icterus, or nystagmus. No injection or drainage. ENT: No nasal bleeding or discharge. Mucous membranes pink and moist. Orotracheally intubated NECK: Trachea midline. No JVD. CARDIOVASCULAR: Regular rate, and regular rhythm. RESPIRATORY: Mechanical ventilation Clear to auscultation. Breath sounds equal bilaterally. GASTROINTESTINAL: Abdomen soft, non-tender, nondistended. No guarding. Well- healed midline abdominal scar noted OGT in situ MUSCULOSKELETAL: No obvious deformities. NEUROLOGICAL:GCS 3T. Off sedation ,pt not following commands, withdrawal to pain , right upper and lower extremity. Procedures Planned lumbar puncture Date of Insertion: Oct 19, 2016 Date of Insertion: Oct 20, 2016 Line: Central Venous Catheter Side: Left Location: Subclavian A/P Assessment and Plan Plan by systems: Neurologic: Toxic encephalopathy versus metabolic encephalopathy Alcohol use disorder Right Subacute basal ganglia infarct Possible meningitis -GCS 3T Propofol infusion for ventilator synchrony -CT 10/19no acute pathology, 10/20- Old right basal ganglia infarct -MRI 10/20-mild restricted diffusion right basal ganglia,characteristic of subacute infarction -Will resume ASA 325mg 24 hours post lumbar puncture -Obtain carotid Doppler [id number]-ic results -10/19 Expanded urine tox screen- positive for amphetamines, cannabinoids, opiates -Neurology following- Dr. Macias -Monitor for alcohol withdrawal-Ativan 2 mg every 4 hours when necessary -Monitor for seizure activity -Lumbar puncture 10/2123-zfuy-xjzeajch cocci -10/20 EEG-severe encephalopathy -Propofol infusion for ventilator synchrony -Multivitamin IV bag completed -Thiamine and folate daily Respiratory: -Mechanical ventilation-AC 18/550/.45/5 -Ventilator bundle -Maintain O2 sat greater than 92% -Monitor ABGs -Daily sedation vacation -Bronchodilators scheduled every 4 hours, every 2 hours when necessary -Maintain head of bed 30 Cardiovascular: Tachycardia-resolved -Normotensive at this time, heart rate 115, will avoid beta blockers at this time secondary to possible cocaine use -Follow up serial EKG 2/12 sinus tach, LAE -Initial troponin 0.06->0.14->0.06 down trended - ROSIBEL 10/22 endocarditis ,aortic vegetations- Dr. Ritter Renal: Dehydration-resolved Renal insufficiency -NS @ 42cc/hr -Monitor BMP -- Strict I/Os FEN/GI: Hypokalemia Hypophosphatemia -Replete electrolytes per ICU protocol -Begin tube feeds, vital high protein goal 55 cc/hour -Protonix GI prophylaxis -Bowel regimen senna, colace Heme/ID: Persistent Leukocytosis Sepsis Meningitis-possible strep pneumo -ID following- -WBC 29-> 17.9 today -Rifampin initiated per ID -10/19 Blood cultures-strep pneumo -10/19 Urine cultures-strep pneumo -Lumbar puncture-noted 50 cc of purulent drainage, gram-positive cocci -Decadron 10 mg every 6 hours 3 days Endocrine: Diabetes mellitus -Glucose monitoring every 6 hours per ICU protocol, low-dose Novolin regimen -hemoglobin A1C 7.1 -- SSI Prophylaxis: GI Prophylaxis Protonix DVT Prophylaxis -- SCDs Heparin SQ BID Lines: PIV's x2. Central line RS (10/20) Dispo: This patient remains critically ill with one or more organ systems which are or may become a threat to life. I have spent in excess of 31minutes discontinuously in the care and management of this patient. This time is exclusive of procedures, and includes, but is not limited to, evaluation of the patient, review of the medical record, discussions with family, consultants, nursing staff, or respiratory therapy, and documentation in the medical record. The patient is noted to have meningitis most likely strep pneumo in addition to subacute/acute infarct , no changes currently in neurological status. Family located via social work consult Mrs. Tracie Alvarado [phone], family notified of admission and current medical status. Discussed with WINDOWS APPLICATION DEVELOPER at bedside. Physician Nicole Li MD Oct 22, 2016 16:12
[2016-10-22] MEDS ORDERED: THIAMINE HCL 100 MG TAB PO ONE (16:15)
--- NOTE | 2016-10-22 17:08 | HHI.PR ---
Addendum to Inpatient Note Addendum Reason: Additional Documentation Additional Information D/w Vegetation on aortic valve. Notified . Pao Reid MD Oct 22, 2016 17:08
--- NOTE | 2016-10-22 17:37 | ETE ---
Study Study Date:10/22/2016 STUDY CONCLUSIONS SUMMARY - Left ventricle: The cavity size was normal. Systolic function was normal. The estimated ejection fraction was in the range of 55% to 60%. Wall motion was normal; there were no regional wall motion abnormalities. - Aortic valve: There shaquille 13mm (L) x 9mm (W), mobiledensity on the noncoronary cusp; the appearance suggests a vegetation. - Atrial septum: No defect or patent foramen ovale was identified with color flow or agitated saline. If LV function is below 40, please consider prescribing an ACEI or ARB or document rationale for non-use. PROCEDURE DATA Consent: The risks, benefits, and alternatives to the procedure were explained to the patient and informed consent was obtained. Procedure: Initial setup. The patient was brought to the laboratory in the fasting state. Intravenous access was obtained. Surface ECG leads and pulse oximetric signals were monitored. Sedation. Conscious sedation was administered by cardiology staff. Transesophageal echocardiography. Topical anesthesia was obtained using viscous lidocaine. A transesophageal probe was inserted by the attending certified medical transcriptionist. Image quality was good. Study completion: All IVs inserted during the procedure were removed. The patient tolerated the procedure well. There were no complications. Transesophageal echocardiography. 2D, complete spectral Doppler, and color Doppler. CARDIAC ANATOMY LEFT VENTRICLE: The cavity size was normal. Systolic function was normal. The estimated ejection fraction was in the range of 55% to 60%. Wall motion was normal; there were no regional wall motion abnormalities. AORTIC VALVE: There shaquille 13mm (L) x 9mm (W), mobiledensity on the noncoronary cusp; the appearance suggests a vegetation. Doppler: There was no stenosis. No significant regurgitation. Aorta: - There was no atheroma. There was no evidence for dissection. MITRAL VALVE: Structurally normal valve. Doppler: There was no evidence for stenosis. Trace to mild regurgitation. ATRIAL SEPTUM: No defect or patent foramen ovale was identified with color flow or agitated saline. RIGHT VENTRICLE: The cavity size was normal. PULMONIC VALVE: Not well visualized. Doppler: There was no evidence for stenosis. No significant regurgitation. TRICUSPID VALVE: Poorly visualized. Doppler: There was no evidence for stenosis. Trace regurgitation. Prepared and signed by Edison Ritter [id number]
[2016-10-22] MEDS: SODIUM CHLORIDE 0.9% FLUSH 5 ML FLUSH IV FLUSH PRN (23:42)
[2016-10-23] VITALS (21 sets, daily range): BP systolic 128–182; BP diastolic 74–95; PULSE 63–88; RESP 16–24; TEMP 98.3–99; O2SAT 95–99
[2016-10-23] MEDS: fentaNYL DRIP 250 ML IV SCH ×2 (02:13→23:55)
[2016-10-23] MEDS: PROPOFOL 1000 MG/100 ML INJ 100 ML IV SCH ×2 (02:13→09:48)
[2016-10-23] MEDS: VANCOMYCIN INJ 1,500 MG in SODIUM CHLORID 0.9% 500 ML INJ 500 ML IV SCH ×2 (02:13→15:59)
[2016-10-23] MEDS: RESP: ALBUTEROL 2.5 MG/IPRATROPIUM 0.5 MG NEB (SCH) NEB ×4 (03:49→20:28)
[2016-10-23] MEDS: CHLORHEXIDINE GLUCONATE 2 % 1 PACK (2 CLOTHS) TOP SCH (04:00)
[2016-10-23 04:44] LABS: MEAN CORPUSCULAR HGB CONC 33.3 % (32.0-36.0); PLATELET COUNT 249 TH/MM3 (150-450); RED BLOOD COUNT 3.85 MIL/MM3 (4.50-5.90); RED CELL DISTRIBUTION WIDTH 13.9 % (11.6-17.2); REVIEW FLAG FINAL; WHITE BLOOD COUNT 22.2 TH/MM3 (4.0-11.0)
[2016-10-23 05:33] LABS: BICARBONATE 28.1 MEQ/L (21.0-32.0); MAGNESIUM 2.2 MG/DL (1.5-2.5); POTASSIUM 3.7 MEQ/L (3.5-5.1)
[2016-10-23] MEDS: DEXAMETHASONE SOD PHOS 20 MG/5 ML VIAL IV SCH ×3 (06:13→17:48)
[2016-10-23] MEDS: INSULIN NovoLIN REGULAR SUPPLEMENTAL SCALE SQ SCH ×3 (06:13→21:41)
[2016-10-23 09:40] LABS: HSV 1,PCR Negative (Negative)
[2016-10-23] MEDS: PANTOPRAZOLE SODIUM 40 MG VIAL IV SCH (09:48)
[2016-10-23] MEDS: ASPIRIN 81 MG CHEW TAB CHEW SCH (09:48)
[2016-10-23] MEDS: FOLIC ACID 1 MG TAB PO SCH (09:48)
[2016-10-23] MEDS: SODIUM CHLORIDE 0.9% FLUSH 5 ML FLUSH IV FLUSH SCH ×2 (09:49→21:41)
[2016-10-23] MEDS: RIFAMPIN INJ 300 MG in SODIUM CHLORIDE 0.9% INJ 100 ML IV SCH (09:49)
[2016-10-23] MEDS: SENNOSIDES SYRUP 8.8 MG/5 ML CUP PO SCH (09:49)
[2016-10-23] MEDS: DOCUSATE SODIUM 100 MG/10 ML UDC PO SCH ×2 (09:50→21:40)
[2016-10-23] MEDS: CHLORHEXIDINE 0.12% (ORAL KIT) 15 ML CUP MT SCH ×2 (09:50→21:41)
[2016-10-23] MEDS: cefTRIAXone INJ 2,000 MG in SODIUM CHLORIDE 0.9% INJ 100 ML IV SCH ×2 (11:49→21:40)
[2016-10-23] MEDS: SODIUM CHLOR 0.9% 1000 ML INJ 1,000 ML IV SCH (11:50)
[2016-10-23] MEDS: POTASSIUM PHOSPHATE MONOBASIC 500 MG TAB PO PRN ×2 (12:08→17:47)
--- NOTE | 2016-10-23 13:36 | PD.CARD.PN ---
Subjective Subjective Remarks No events over night noted Objective Medications Current Medications Medications (Trade) Dose Ordered Sig/Ananya Route Start Time Stop Time Status Last Admin (NS 1000 ml Inj) 1,000 ml @ 42 mls/hr [id number] IV 10/19/16 14:24 10/23/16 11:50 (NS Flush) 2 ml BID IV FLUSH 10/19/16 21:00 10/23/16 09:49 (Protonix Inj) 40 mg DAILY IV 10/20/16 09:00 10/23/16 09:48 (Zofran Inj) 4 mg Q6H PRN IV 10/19/16 14:30 (Heparin Inj) 5,000 units Q12H SQ 10/19/16 16:00 Hold 10/19/16 15:53 Miscellaneous Information 1 Q361D XX 10/19/16 14:30 (Chlorhexidine 2% Cloth) 3 pack Taper DAILY@04 TOP 10/20/16 04:00 10/16/17 03:59 10/23/16 04:00 Chlorhexidine Gluconate 3 pack 3 pack UNSCH PRN TOP 10/19/16 14:30 Potassium Chloride 100 ml @ 50 mls/hr Q2H PRN IV 10/19/16 14:30 (KCl 20 Meq Premix Inj) 100 ml @ 50 mls/hr Q2H PRN IV 10/19/16 14:30 Potassium Chloride 40 meq 40 meq UNSCH PRN PO/TUBE 10/19/16 14:30 10/21/16 10:51 Potassium Chloride 100 ml @ 25 mls/hr UNSCH PRN IV 10/19/16 14:30 10/21/16 01:32 Potassium Chloride 100 ml @ 50 mls/hr Q2H PRN IV 10/19/16 14:30 10/19/16 14:48 (Magnesium Sulfate Inj/NS Inj) 100 ml @ 50 mls/hr UNSCH PRN IV 10/19/16 14:30 Magnesium Oxide 800 mg 800 mg UNSCH PRN PO 10/19/16 14:30 (Magnesium Sulfate Inj/NS Inj) 100 ml @ 50 mls/hr UNSCH PRN IV 10/19/16 14:30 Potassium Phosphate 2000 mg 2,000 mg Q4H PRN PO 10/19/16 14:30 10/23/16 12:08 (Sodium Phosphate Inj/NS 250 ml Inj) 250 ml @ 42 mls/hr UNSCH PRN IV 10/19/16 14:30 (KCl 40 Meq/30 ml Liq) 40 meq UNSCH PRN PO/TUBE 10/19/16 14:30 Potassium Phosphate 2000 mg 2,000 mg UNSCH PRN PO/TUBE 10/19/16 14:30 (Potassium Phosphate Inj/NS 250 ml Inj) 260 ml @ 42 mls/hr UNSCH PRN IV 10/19/16 14:30 (NS Flush) 2 ml UNSCH PRN IV FLUSH 10/19/16 14:30 10/22/16 23:42 (D50w (Vial) Inj) 25 ml UNSCH PRN IV PUSH 10/19/16 14:30 (Glucagon Inj) 1 mg UNSCH PRN OTHER 10/19/16 14:30 (Haldol Inj) 5 mg Q6H PRN IM 10/19/16 14:45 (Romazicon Inj) 0.2 mg Q1M PRN IV PUSH 10/19/16 14:45 Lorazepam 1 mg 1 mg Q4H PRN IV PUSH 10/19/16 14:45 (Diprivan 1000 Mg/100ml Inj) 100 ml @ 0 mls/hr TITRATE IV 10/20/16 02:30 10/23/16 09:48 (Peridex 0.12% Liq) 15 ml BID@08,20 MT 10/20/16 08:00 10/23/16 09:50 (Senna Liq) 8.8 mg DAILY PO 10/21/16 09:00 10/23/16 09:49 Docusate Sodium 100 mg 100 mg Q12HR PO 10/20/16 21:00 10/23/16 09:50 (Vancomycin Consult Pharmacy) 0 ml @ 0 mls/hr UNSCH OTHER 10/21/16 08:30 (Tylenol 650 Mg/ 20 ml Liq) 650 mg Q6H PRN PO 10/21/16 11:00 10/22/16 05:50 Lorazepam 2 mg 2 mg Q4H PRN IV PUSH 10/21/16 11:00 10/22/16 00:15 Fentanyl Citrate 250 ml @ 0 mls/hr TITRATE IV 10/21/16 11:00 10/23/16 02:13 Ceftriaxone Sodium 2000 mg/ Sodium Chloride 100 ml @ 200 mls/hr Q12H IV 10/21/16 11:00 10/23/16 11:49 (Rifampin Inj/NS Inj) 100 ml @ 100 mls/hr Q12H IV 10/21/16 20:00 10/23/16 09:49 Dexamethasone Sodium Phosphate 10 mg 10 mg Q6HR IV 10/21/16 18:00 10/25/16 18:00 10/23/16 11:49 (Vancomycin Inj/ NS 500 ml Inj) 515 ml @ 257.5 mls/ hr Q12H IV 10/23/16 03:00 10/23/16 02:13 Miscellaneous Information SPECIFIC LAB TO BE ELAINE... ONCE ONCE XX 10/24/16 02:45 10/24/16 02:46 (Folate) 1 mg DAILY PO 10/23/16 09:00 10/23/16 09:48 (Aspirin Chew) 81 mg DAILY CHEW 10/23/16 09:00 10/23/16 09:48 Vital Signs / I&O Vital Signs Date Time Temp Pulse Resp B/P Pulse Ox O2 Delivery O2 Flow Rate FiO2 10/23/16 12:00 45 10/23/16 12:00 72 10/23/16 11:26 45 10/23/16 11:26 97 45 10/23/16 11:24 95 45 10/23/16 10:00 69 10/23/16 08:00 74 10/23/16 08:00 45 10/23/16 07:59 96 45 10/23/16 06:00 70 10/23/16 04:07 98 45 10/23/16 04:00 79 10/23/16 04:00 98.5 79 18 150/88 96 10/23/16 04:00 45 10/23/16 02:00 65 10/23/16 01:05 96 45 10/23/16 00:00 76 10/23/16 00:00 45 10/23/16 00:00 98.6 76 20 128/74 97 10/22/16 22:05 96 45 10/22/16 22:00 67 10/22/16 20:00 45 10/22/16 20:00 99.8 84 18 126/81 95 10/22/16 20:00 84 10/22/16 19:37 97 45 10/22/16 17:38 92 45 10/22/16 16:00 45 10/22/16 16:00 103.0 92 18 113/63 95 127/76 I/O 10/22/16 10/22/16 10/22/16 10/23/16 10/23/16 10/23/16 07:00 15:00 23:00 07:00 15:00 23:00 Intake Total 1170 ml 1130 ml 764 ml 1417 ml Output Total 11 ml 900 ml 1100 ml 1000 ml Balance 1159 ml 230 ml -336 ml 417 ml Intake Oral 0 ml 0 ml IV Total 1100 ml 1030 ml 634 ml 1055 ml Tube Feeding 40 ml 130 ml 362 ml Tube Irrigant 30 ml 100 ml Output Urine Total 11 ml 900 ml 1100 ml 1000 ml Gastric Drainage Total 0 ml 0 ml # Bowel Movements 0 0 0 Physical Exam GENERAL: Sedated on the vent SKIN: Warm and dry. HEAD: Atraumatic. Normocephalic. EYES: Pupils equal and round. ENT: No nasal bleeding or discharge. Mucous membranes pink and moist. NECK: Trachea midline. No JVD. CARDIOVASCULAR: Regular rate and rhythm. RESPIRATORY: No accessory muscle use. Decreased breath sounds bilaterally GASTROINTESTINAL: Abdomen soft, non-tender, nondistended. Hepatic and splenic margins not palpable. MUSCULOSKELETAL: Extremities without clubbing, cyanosis, or edema. No obvious deformities. NEUROLOGICAL: Sedated on the vent PSYCHIATRIC: Unable to obtain Laboratory Laboratory Tests Test 10/23/16 04:00 White Blood Count 22.2 TH/MM3 Red Blood Count 3.85 MIL/MM3 Hemoglobin 12.3 GM/DL Hematocrit 37.0 % Mean Corpuscular Volume 96.0 FL Mean Corpuscular Hemoglobin 32.0 PG Mean Corpuscular Hemoglobin 33.3 % Concent Red Cell Distribution Width 13.9 % Platelet Count 249 TH/MM3 Mean Platelet Volume 9.8 FL Sodium Level 151 MEQ/L Potassium Level 3.7 MEQ/L Chloride Level 116 MEQ/L Carbon Dioxide Level 28.1 MEQ/L Anion Gap 7 MEQ/L Blood Urea Nitrogen 28 MG/DL Creatinine 0.91 MG/DL Estimat Glomerular Filtration 88 ML/MIN Rate Random Glucose 304 MG/DL Calcium Level 8.9 MG/DL Phosphorus Level 2.2 MG/DL Magnesium Level 2.2 MG/DL Assessment and Plan Problem List: (1) Sepsis (2) Altered mental status (3) Endocarditis of aortic valve (4) UTI (urinary tract infection) Assessment and Plan 1) s/p ROSIBEL, mobile mass on the aortic valve, concerning for probable endocarditis 2) Supportive care 3) Will see PRN, call with questions Edison Ritter DO Oct 23, 2016 13:36
--- NOTE | 2016-10-23 16:39 | HHI.CCPN ---
Subjective Remarks/Hospital Course 51-year-old male with history of chronic substance use and alcohol use, was recently seen in the ER apparently for UTI earlier this a.m.,CT scanshowing possible pyelonephritis, with perinephric edema and subsequently discharged. This subsequent presentation to the ED today brought in by EMS, because he was found in the [place] by bystanders, disoriented,unknown LOC. According to EMS, they believe that he may have used some crack cocaine. No history was obtainable in the ED, laboratory and imaging studies were performed. The patient was noted to have leukocytosis, with a WBC count of 31, with an initial lactate of 7.3 .CT of the head showed no acute abnormality .Upon my entering the ED to examine the patient, supine in 4 point restraints,combative, not responding, but awake. He is diaphoretic and tachycardic , HR 115-120's. Critical care medicine was consulted for treatment and management. Subjective 10/20 Afebrile. Last evening, the patient was noted to be moving all 4 extremities, requiring 4. restraints in addition of the Precedex infusion. Noncommunicative, combative and motor strength 5/5. Approximately 2:30 AM, the patient was noted to be nonresponsive off sedation, left hemiplegia, with no gag reflex. The patient was emergently intubated for airway protection. ABGs were within normal limits. Repeat CT at 4 AM was unremarkable. MRI obtained today, noted mild restricted diffusion right basal ganglia characteristic of subacute infarction. One dose of aspirin was given, neurology was consulted appreciate recommendations. Carotid Doppler studies, echo pending. Objective Vital Signs Date Time Temp Pulse Resp B/P Pulse Ox O2 Delivery O2 Flow Rate FiO2 10/23/16 14:20 97 45 10/23/16 14:00 88 10/23/16 04:00 98.5 18 150/88 10/19/16 19:18 Nasal Cannula 2.00 Intake and Output 10/22/16 10/22/16 10/23/16 08:00 16:00 00:00 Intake Total 1170 ml 1130 ml 764 ml Output Total 11 ml 900 ml 1100 ml Balance 1159 ml 230 ml -336 ml Result Diagram: 10/23/16 0400 10/23/16 0400 Other Results Microbiology Date/Time Procedure Status Source Growth 10/20/16 23:00 Legionella Antigen - Final Complete Urine Catheterized Urine PRESUMPTIVE NEGATIVE FOR LEGIONELLA P... 10/20/16 23:00 Streptococcus pneumoniae Antigen (M - Final Complete Pos For Pneumococcal Antigen 10/21/16 00:00 Influenza Types A,B Antigen (JJ) - Final Complete Nasal Aspirate NEGATIVE FOR FLU A AND B ANTIGEN.... Imaging Last Impressions Head CT 10/20/16 0000 Signed Impressions: Service Date/Time: Thursday, October 20, 2016 03:40 - CONCLUSION: 1. No evidence of acute intracranial pathology. No masses are identified. Old right basal ganglia infarct John Hobson MD Chest X-Ray 10/20/16 0000 Signed Impressions: Service Date/Time: Thursday, October 20, 2016 03:13 - CONCLUSION: 1. Uncomplicated line placement. No evidence of pneumothorax. Satisfactory position of endotracheal tube as above. 2. Cardiomegaly and findings of vascular congestion without overt failure. This is new when compared with the prior exam. John Hobson MD Carotid Artery Ultrasound 10/20/16 0000 Signed Impressions: Service Date/Time: Thursday, October 20, 2016 14:35 - CONCLUSION: Unremarkable exam with no evidence of stenosis. Micha Wallace MD Brain MRI 10/20/16 0000 Signed Impressions: Service Date/Time: Thursday, October 20, 2016 09:50 - CONCLUSION: 1. Focal area of mild restricted diffusion in the right basal ganglia with increased signal on the flair and T2-weighted sequence characteristic of an area of subacute infarction. 2. Mild atrophy and chronic small vessel ischemic change. 3. No acute hemorrhage or mass effect. Micha Wallace MD Abdomen X-Ray 10/20/16 0000 Signed Impressions: Service Date/Time: Thursday, October 20, 2016 12:03 - CONCLUSION: Nonspecific bowel gas. Maximiliano Nielsen MD FACR Last [address] 10/20/16 0000 Signed Impressions: Service Date/Time: Thursday, October 20, 2016 03:40 - CONCLUSION: 1. No evidence of acute intracranial pathology. No masses are identified. Old right basal ganglia infarct John Hobson MD Chest X-Ray 10/20/16 0000 Signed Impressions: Service Date/Time: Thursday, October 20, 2016 03:13 - CONCLUSION: 1. Uncomplicated line placement. No evidence of pneumothorax. Satisfactory position of endotracheal tube as above. 2. Cardiomegaly and findings of vascular congestion without overt failure. This is new when compared with the prior exam. John Hobson MD Brain MRI 10/20/16 0000 Signed Impressions: Service Date/Time: Thursday, October 20, 2016 09:50 - CONCLUSION: 1. Focal area of mild restricted diffusion in the right basal ganglia with increased signal on the flair and T2-weighted sequence characteristic of an area of subacute infarction. 2. Mild atrophy and chronic small vessel ischemic change. 3. No acute hemorrhage or mass effect. Micha Wallace MD Last Impressions Head CT 10/19/16 1159 Signed Impressions: Service Date/Time: Wednesday, October 19, 2016 13:16 - CONCLUSION: No acute pathology. No significant change has occurred compared to the prior study. Marcel Cabrera MD Chest X-Ray 10/19/16 1159 Signed Impressions: Service Date/Time: Wednesday, October 19, 2016 12:40 - CONCLUSION: No acute pulmonary infiltrates Marcel Cabrera MD Objective Remarks GENERAL: Critically ill-appearing male intubated and sedated. SKIN: Warm and dry. HEAD: Atraumatic. Normocephalic. EYES: Pupils equal and round, 2 mm. No scleral icterus, or nystagmus. No injection or drainage. ENT: No nasal bleeding or discharge. Mucous membranes pink and moist. Orotracheally intubated NECK: Trachea midline. No JVD. CARDIOVASCULAR: Regular rate, and regular rhythm. RESPIRATORY: Mechanical ventilation Clear to auscultation. Breath sounds equal bilaterally. GASTROINTESTINAL: Abdomen soft, non-tender, nondistended. No guarding. Well- healed midline abdominal scar noted OGT in situ MUSCULOSKELETAL: No obvious deformities. NEUROLOGICAL:GCS 3T. Off sedation ,pt not following commands, withdrawal to pain , right upper and lower extremity. Procedures Planned lumbar puncture Urinary Catheter: Yes Date of Insertion: Oct 19, 2016 Vascular Central Line Catheter: Yes Assessment to: Continue Date of Insertion: Oct 20, 2016 Line: Central Venous Catheter Side: Left Location: Subclavian A/P Assessment and Plan Plan by systems: Neurologic: Toxic encephalopathy versus metabolic encephalopathy Alcohol use disorder Right Subacute basal ganglia infarct Meningitis -GCS11T -[id number], left facial droop, left hemiplegia. Following commands right upper and lower extremity. Motor strength 5/5. Currently on fentanyl infusion 100 mcgs -CT 10/19no acute pathology, 10/20- Old right basal ganglia infarct -MRI 10/20-mild restricted diffusion right basal ganglia,characteristic of subacute infarction - ASA 325mg /daily -10/19 Expanded urine tox screen- positive for amphetamines, cannabinoids, opiates -Neurology following- Dr. Macias -Monitor for alcohol withdrawal-Ativan 2 mg every 4 hours when necessary -Monitor for seizure activity -Lumbar puncture 10/2182-[id number] cocci -10/20 EEG-severe encephalopathy -Fentanyl infusion for ventilator synchrony -Thiamine and folate daily Respiratory: -Mechanical ventilation-AC 18/550/.40/5, wean FiO2 to maintain sat 92% -Ventilator bundle -Maintain O2 sat greater than 92% -Monitor ABGs -Daily sedation vacation -Begin CPAP trials -Bronchodilators scheduled every 4 hours, every 2 hours when necessary -Maintain head of bed 30 Cardiovascular: Tachycardia-resolved -Normotensive at this time - EKG 10/19 sinus tach, LAE - ROSIBEL 10/22 endocarditis ,aortic vegetations, supportive care - Cardiology following , Dr. Ritter Renal: Dehydration-resolved Renal insufficiency Hypernatremia -Na 151, will initiate free water boluses 200 cc every 6 hours -Monitor BMP -- Strict I/Os FEN/GI: Hypokalemia Hypophosphatemia -Replete electrolytes per ICU protocol -Begin tube feeds, vital high protein goal 55 cc/hour -Protonix GI prophylaxis -Bowel regimen senna, colace Heme/ID: Persistent Leukocytosis Sepsis Meningitis-possible strep pneumo -ID following- -WBC 22 -Rifampin initiated per ID -10/19 Blood cultures-strep pneumo -10/19 Urine cultures-strep pneumo -Lumbar puncture-noted 50 cc of purulent drainage, gram-positive cocci -Decadron 10 mg every 6 hours 2 days Endocrine: Diabetes mellitus -Glucose monitoring every 6 hours per ICU protocol, changed to high-dose regimen -hemoglobin A1C 7.1 -- SSI MSK: -PT evaluate and treat Prophylaxis: GI Prophylaxis Protonix DVT Prophylaxis -- SCDs Heparin SQ BID Lines: PIV's x2. Central line RS (10/20) Dispo: This patient remains critically ill with one or more organ systems which are or may become a threat to life. I have spent in excess of 43 minutes discontinuously in the care and management of this patient. This time is exclusive of procedures, and includes, but is not limited to, evaluation of the patient, review of the medical record, discussions with family, consultants, nursing staff, or respiratory therapy, and documentation in the medical record. The patient had improvement today following commands, and currently on CPAP for 4hours. I discussed my findings and recent imaging studies with his sister Mrs. Tracie Alvarado [phone]. Discussed with FLAG DECORATOR at bedside. Physician Nicole Li MD Oct 23, 2016 16:39
[2016-10-23] MEDS ORDERED: DEXTROSE 50% IN WATER 50 ML VIAL(D50) IV PUSH PRN (17:00)
[2016-10-23] MEDS ORDERED: GLUCAGON 1 MG/ML VIAL OTHER PRN (17:00)
[2016-10-23] MEDS ORDERED: Gentamicin Consult Pharmacy 1 EA OTHER SCH (17:30)
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
[2016-10-23] MEDS: FREE WATER G-TUBE SCH ×2 (17:48→23:57)
[2016-10-23] MEDS: PENICILLIN G SODIUM INJ 4,000,000 UNITS in SODIUM CHLORIDE 0.9% INJ 100 ML IV SCH ×2 (19:11→21:40)
[2016-10-23] MEDS: GENTAMICIN INJ 275 MG in SODIUM CHLORIDE 0.9% INJ 100 ML IV SCH (21:41)
[2016-10-23] MEDS: RIFAMPIN 150 MG CAP PO SCH (21:41)
[2016-10-23] MEDS: LORazepam 2 MG/ML VIAL IV PUSH PRN (22:09)
[2016-10-24] VITALS (24 sets, daily range): BP systolic 112–148; BP diastolic 74–95; PULSE 61–84; RESP 17–19; TEMP 97.5–98.6; O2SAT 92–99
[2016-10-24] MEDS: DEXAMETHASONE SOD PHOS 20 MG/5 ML VIAL IV SCH ×5 (00:02→22:09)
[2016-10-24] MEDS: PENICILLIN G SODIUM INJ 4,000,000 UNITS in SODIUM CHLORIDE 0.9% INJ 100 ML IV SCH ×6 (02:34→22:05)
[2016-10-24] MEDS: CHLORHEXIDINE GLUCONATE 2 % 1 PACK (2 CLOTHS) TOP SCH ×2 (02:34→22:12)
[2016-10-24] MEDS ORDERED: PHARMACY ORDERED LAB XX ONE (02:45)
[2016-10-24] MEDS: RESP: ALBUTEROL 2.5 MG/IPRATROPIUM 0.5 MG NEB (SCH) NEB ×3 (03:14→15:27)
[2016-10-24 03:45] LABS: HEMATOCRIT 40.6 % (39.0-51.0); MEAN CELL VOLUME 96.3 FL (80.0-100.0); MEAN CORPUSCULAR HGB CONC 33.2 % (32.0-36.0); PLATELET COUNT 276 TH/MM3 (150-450); RED BLOOD COUNT 4.22 MIL/MM3 (4.50-5.90); RED CELL DISTRIBUTION WIDTH 13.9 % (11.6-17.2); REVIEW FLAG FINAL; WHITE BLOOD COUNT 24.6 TH/MM3 (4.0-11.0)
[2016-10-24 04:00] LABS: BICARBONATE 29.6 MEQ/L (21.0-32.0); MAGNESIUM 2.1 MG/DL (1.5-2.5); POTASSIUM 4.1 MEQ/L (3.5-5.1)
[2016-10-24] MEDS: FREE WATER G-TUBE SCH ×4 (05:00→23:51)
[2016-10-24] MEDS: INSULIN NovoLIN REGULAR SUPPLEMENTAL SCALE SQ SCH ×4 (06:30→22:05)
--- NOTE | 2016-10-24 06:49 | RADRPT ---
EXAM DATE/TIME: 10/24/2016 04:30 [facility] COMPARISON: CHEST SINGLE AP, October 22, 2016, 3:50. INDICATIONS : Evaluate for respiratory failure. MEDICAL HISTORY : None. SURGICAL HISTORY : None. ENCOUNTER: Subsequent ACUITY: 4 - 6 days PAIN SCORE: Non-responsive. LOCATION: chest FINDINGS: The cardiac silhouette is enlarged in transverse diameter. Support lines and tubes are in satisfactor y position. There is prominence of the central pulmonary vasculature with indistinct vascular margins compatible with vascular congestion but no evidence of overt failure. CONCLUSION: 1. Cardiomegaly and findings of vascular congestion without overt failure. There has been no signific ant change when compared to the prior exam. John Hobson MD on October 24, 2016 at 6:47 Board Certified Radiologist. This report was verified electronically.
--- NOTE | 2016-10-24 07:22 | HHI.PR ---
Review/Management Daily Summary 10/21 less sedated when seen this am, mildly agitated and moving right side well but severely paretic left studies seen will need senior care rehab, asa and statin 10/24 he is easily awakened, follows commands promptly right limbs move strongly moves left leg on request 4/5 left arm 0/5 obvious left facial weakness he even counts fingers at least on his right field, uses his hand to show me numbers of fingers i had right hemisphere/basal ganglia infarct/meningitis/endocarditis? neuro supportive care, overall much improved Subjective Subjective Comments No acute neuro events reported Active Medications Current Medications Medications (Trade) Dose Ordered Sig/Ananya Route Start Time Stop Time Status Last Admin (NS Flush) 2 ml BID IV FLUSH 10/19/16 21:00 10/23/16 21:41 (Protonix Inj) 40 mg DAILY IV 10/20/16 09:00 10/23/16 09:48 (Zofran Inj) 4 mg Q6H PRN IV 10/19/16 14:30 (Heparin Inj) 5,000 units Q12H SQ 10/19/16 16:00 Hold 10/19/16 15:53 Miscellaneous Information 1 Q361D XX 10/19/16 14:30 (Chlorhexidine 2% Cloth) 3 pack Taper DAILY@04 TOP 10/20/16 04:00 10/16/17 03:59 10/24/16 02:34 Chlorhexidine Gluconate 3 pack 3 pack UNSCH PRN TOP 10/19/16 14:30 Potassium Chloride 100 ml @ 50 mls/hr Q2H PRN IV 10/19/16 14:30 (KCl 20 Meq Premix Inj) 100 ml @ 50 mls/hr Q2H PRN IV 10/19/16 14:30 Potassium Chloride 40 meq 40 meq UNSCH PRN PO/TUBE 10/19/16 14:30 10/21/16 10:51 Potassium Chloride 100 ml @ 25 mls/hr UNSCH PRN IV 10/19/16 14:30 10/21/16 01:32 Potassium Chloride 100 ml @ 50 mls/hr Q2H PRN IV 10/19/16 14:30 10/19/16 14:48 (Magnesium Sulfate Inj/NS Inj) 100 ml @ 50 mls/hr UNSCH PRN IV 10/19/16 14:30 Magnesium Oxide 800 mg 800 mg UNSCH PRN PO 10/19/16 14:30 (Magnesium Sulfate Inj/NS Inj) 100 ml @ 50 mls/hr UNSCH PRN IV 10/19/16 14:30 Potassium Phosphate 2000 mg 2,000 mg Q4H PRN PO 10/19/16 14:30 10/23/16 17:47 (Sodium Phosphate Inj/NS 250 ml Inj) 250 ml @ 42 mls/hr UNSCH PRN IV 10/19/16 14:30 (KCl 40 Meq/30 ml Liq) 40 meq UNSCH PRN PO/TUBE 10/19/16 14:30 Potassium Phosphate 2000 mg 2,000 mg UNSCH PRN PO/TUBE 10/19/16 14:30 (Potassium Phosphate Inj/NS 250 ml Inj) 260 ml @ 42 mls/hr UNSCH PRN IV 10/19/16 14:30 (NS Flush) 2 ml UNSCH PRN IV FLUSH 10/19/16 14:30 10/22/16 23:42 (Romazicon Inj) 0.2 mg Q1M PRN IV PUSH 10/19/16 14:45 (Peridex 0.12% Liq) 15 ml BID@08,20 MT 10/20/16 08:00 10/23/16 21:41 (Senna Liq) 8.8 mg DAILY PO 10/21/16 09:00 10/23/16 09:49 (Colace Liq) 100 mg Q12HR PO 10/20/16 21:00 10/23/16 21:40 (Tylenol 650 Mg/ 20 ml Liq) 650 mg Q6H PRN PO 10/21/16 11:00 10/22/16 05:50 Lorazepam 2 mg 2 mg Q4H PRN IV PUSH 10/21/16 11:00 10/23/16 22:09 Fentanyl Citrate 250 ml @ 0 mls/hr TITRATE IV 10/21/16 11:00 10/23/16 23:55 (Rocephin Inj/NS Inj) 100 ml @ 200 mls/hr Q12H IV 10/21/16 11:00 10/23/16 21:40 (Decadron Inj) 10 mg Q6HR IV 10/21/16 18:00 10/25/16 18:00 10/24/16 05:00 (Folate) 1 mg DAILY PO 10/23/16 09:00 10/23/16 09:48 (Aspirin Chew) 81 mg DAILY CHEW 10/23/16 09:00 10/23/16 09:48 (D50w (Vial) Inj) 25 ml UNSCH PRN IV PUSH 10/23/16 17:00 (Glucagon Inj) 1 mg UNSCH PRN OTHER 10/23/16 17:00 Water VOLUME: 200 ML Q6HR G-TUBE 10/23/16 18:00 10/24/16 05:00 Penicillin G Sodium 3908127 units/Sodium Chloride 100 ml @ 200 mls/hr Q4H IV 10/23/16 18:00 10/24/16 05:00 (Gentamicin Consult Pharmacy) 0 ml @ 0 mls/hr UNSCH OTHER 10/23/16 17:30 Rifampin 300 mg 300 mg Q12H PO 10/23/16 20:00 10/23/16 21:41 (Gentamicin Inj/ NS Inj) 106.875 ml @ 200 mls/ hr Q24H IV 10/23/16 20:00 10/23/16 21:41 Miscellaneous Information SPECIFIC LAB TO BE ELAINE... ONCE ONCE XX 10/26/16 19:45 10/26/16 19:46 Allergies Allergies Coded Allergies No Known Allergies (Verified11/15/12) Exam I&O / VS 10/23/16 10/23/16 10/24/16 15:00 23:00 07:00 Intake Total 1521 ml 1504 ml 946 ml Output Total 1400 ml 1500 ml 1300 ml Balance 121 ml 4 ml -354 ml IV Total 989 ml 1174 ml 591 ml Tube Feeding 532 ml 210 ml 355 ml Other 120 ml Output Urine Total 1400 ml 1500 ml 1300 ml Vital Signs Date Time Temp Pulse Resp B/P Pulse Ox O2 Delivery O2 Flow Rate FiO2 10/24/16 06:00 75 10/24/16 04:02 99 45 10/24/16 04:00 45 10/24/16 04:00 97.8 61 18 148/91 97 10/24/16 04:00 61 10/24/16 02:00 72 10/24/16 01:06 97 45 10/24/16 00:00 74 10/24/16 00:00 45 10/24/16 00:00 97.8 74 18 124/74 97 10/23/16 23:05 97 45 10/23/16 22:00 73 10/23/16 20:30 97 45 10/23/16 20:00 98.5 63 24 139/86 95 10/23/16 20:00 63 10/23/16 20:00 45 10/23/16 18:17 99 45 10/23/16 18:00 68 10/23/16 16:00 99.0 79 17 159/95 95 10/23/16 16:00 74 10/23/16 16:00 45 10/23/16 14:20 97 45 10/23/16 14:00 88 10/23/16 12:00 45 10/23/16 12:00 72 10/23/16 12:00 98.6 82 16 182/90 96 10/23/16 11:26 45 10/23/16 11:26 97 45 10/23/16 11:24 95 45 10/23/16 10:00 69 10/23/16 08:00 74 10/23/16 08:00 45 10/23/16 08:00 98.3 71 17 130/79 96 10/23/16 07:59 96 45 Objective Micro and Labs Laboratory Tests Test 10/24/16 02:30 White Blood Count 24.6 Red Blood Count 4.22 Hemoglobin 13.5 Hematocrit 40.6 Mean Corpuscular Volume 96.3 Mean Corpuscular Hemoglobin 32.0 Mean Corpuscular Hemoglobin 33.2 Concent Red Cell Distribution Width 13.9 Platelet Count 276 Mean Platelet Volume 9.7 Sodium Level 155 Potassium Level 4.1 Chloride Level 118 Carbon Dioxide Level 29.6 Anion Gap 7 Blood Urea Nitrogen 33 Creatinine 0.85 Estimat Glomerular Filtration 95 Rate Random Glucose 273 Calcium Level 9.2 Phosphorus Level 3.0 Magnesium Level 2.1 Vancomycin Level Trough 12.8 Date/Time Procedure Status Source Growth 10/21/16 15:34 Gram Stain - Final Resulted Cerebral Spinal Fluid Lumbar Puncture 10/21/16 15:34 CSF Culture - Preliminary Resulted Gram Positive Cocci 10/21/16 15:34 Fungal Smear - Final Resulted Cerebral Spinal Fluid Lumbar Puncture NO FUNGAL ELEMENTS SEEN. 10/21/16 15:34 Fungal Culture Resulted Cerebral Spinal Fluid Lumbar Puncture Pending 10/21/16 15:34 Acid Fast Stain - Final Resulted Cerebral Spinal Fluid Lumbar Puncture NO ACID FAST BACILLI SEEN 10/21/16 15:34 Mycobacterial Culture Resulted Cerebral Spinal Fluid Lumbar Puncture Pending 10/21/16 10:09 Aerobic Blood Culture - Preliminary Resulted Blood Peripheral NO GROWTH IN 2 DAYS 10/21/16 10:09 Anaerobic Blood Culture - Preliminary Resulted Blood Peripheral NO GROWTH IN 2 DAYS 10/21/16 00:00 Influenza Types A,B Antigen (JJ) - Final Complete Nasal Aspirate NEGATIVE FOR FLU A AND B ANTIGEN.... 10/20/16 23:00 Legionella Antigen - Final Complete Urine Catheterized Urine PRESUMPTIVE NEGATIVE FOR LEGIONELLA P... 10/20/16 23:00 Streptococcus pneumoniae Antigen (M - Final Complete Pos For Pneumococcal Antigen 10/20/16 23:00 Influenza Types A,B Antigen (JJ) Ordered Nasal Aspirate Pending 10/19/16 12:25 Aerobic Blood Culture - Final Complete Blood Peripheral Streptococcus Pneumoniae 10/19/16 12:25 Anaerobic Blood Culture - Final Complete Streptococcus Pneumoniae Bharath Macias MD Oct 24, 2016 07:22
[2016-10-24] MEDS ORDERED: DEXTROSE 50% IN WATER 50 ML VIAL(D50) IV PUSH PRN (07:30)
[2016-10-24] MEDS ORDERED: GLUCAGON 1 MG/ML VIAL OTHER PRN (07:30)
--- NOTE | 2016-10-24 07:40 | HHI.CCPN ---
Subjective Remarks/Hospital Course 51-year-old male with history of chronic substance use and alcohol use, was recently seen in the ER apparently for UTI earlier this a.m.,CT scanshowing possible pyelonephritis, with perinephric edema and subsequently discharged. This subsequent presentation to the ED today brought in by EMS, because he was found in the [place] by bystanders, disoriented,unknown LOC. According to EMS, they believe that he may have used some crack cocaine. No history was obtainable in the ED, laboratory and imaging studies were performed. The patient was noted to have leukocytosis, with a WBC count of 31, with an initial lactate of 7.3 .CT of the head showed no acute abnormality .Upon my entering the ED to examine the patient, supine in 4 point restraints,combative, not responding, but awake. He is diaphoretic and tachycardic , HR 115-120's. Critical care medicine was consulted for treatment and management. Subjective 10/20 Afebrile. Last evening, the patient was noted to be moving all 4 extremities, requiring 4. restraints in addition of the Precedex infusion. Noncommunicative, combative and motor strength 5/5. Approximately 2:30 AM, the patient was noted to be nonresponsive off sedation, left hemiplegia, with no gag reflex. The patient was emergently intubated for airway protection. ABGs were within normal limits. Repeat CT at 4 AM was unremarkable. MRI obtained today, noted mild restricted diffusion right basal ganglia characteristic of subacute infarction. One dose of aspirin was given, neurology was consulted appreciate recommendations. Carotid Doppler studies, echo pending. 10/24 Patient is sedated with Fentanyl and intubated. Afebrile.Tolerating tube feeds, Objective Vital Signs Date Time Temp Pulse Resp B/P Pulse Ox O2 Delivery O2 Flow Rate FiO2 10/24/16 06:00 75 10/24/16 04:02 99 45 10/24/16 04:00 97.8 18 148/91 Intake and Output 10/23/16 10/23/16 10/24/16 08:00 16:00 00:00 Intake Total 1417 ml 1521 ml 1504 ml Output Total 1000 ml 1400 ml 1500 ml Balance 417 ml 121 ml 4 ml Result Diagram: 10/24/16 0230 10/24/16 0230 Other Results Laboratory Tests Test 10/24/16 02:30 White Blood Count 24.6 TH/MM3 Red Blood Count 4.22 MIL/MM3 Hemoglobin 13.5 GM/DL Hematocrit 40.6 % Mean Corpuscular Volume 96.3 FL Mean Corpuscular Hemoglobin 32.0 PG Mean Corpuscular Hemoglobin 33.2 % Concent Red Cell Distribution Width 13.9 % Platelet Count 276 TH/MM3 Mean Platelet Volume 9.7 FL Sodium Level 155 MEQ/L Potassium Level 4.1 MEQ/L Chloride Level 118 MEQ/L Carbon Dioxide Level 29.6 MEQ/L Anion Gap 7 MEQ/L Blood Urea Nitrogen 33 MG/DL Creatinine 0.85 MG/DL Estimat Glomerular Filtration 95 ML/MIN Rate Random Glucose 273 MG/DL Calcium Level 9.2 MG/DL Phosphorus Level 3.0 MG/DL Magnesium Level 2.1 MG/DL Vancomycin Level Trough 12.8 MCG/ML Imaging Last Impressions Chest X-Ray 10/24/16 0600 Signed Impressions: Service Date/Time: Monday, October 24, 2016 04:30 - CONCLUSION: 1. Cardiomegaly and findings of vascular congestion without overt failure. There has been no significant change when compared to the prior exam. John Hobson MD Lumbar Puncture Fluoroscopy 10/21/16 0000 Signed Impressions: Service Date/Time: Friday, October 21, 2016 15:20 - CONCLUSION: Uncomplicated fluoroscopically guided lumbar puncture with pressures as above. 12 cc of pus was collected and sent to the lab. Dr. Reid was notified. Melvin Nielsen MD Head CT 10/20/16 0000 Signed Impressions: Service Date/Time: Thursday, October 20, 2016 03:40 - CONCLUSION: 1. No evidence of acute intracranial pathology. No masses are identified. 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 Micha Wallace MD Brain MRI 10/20/16 0000 Signed Impressions: Service Date/Time: Thursday, October 20, 2016 09:50 - CONCLUSION: 1. Focal area of mild restricted diffusion in the right basal ganglia with increased signal on the flair and T2-weighted sequence characteristic of an area of subacute infarction. 2. Mild atrophy and chronic small vessel ischemic change. 3. No acute hemorrhage or mass effect. Micha Wallace MD Abdomen X-Ray 10/20/16 0000 Signed Impressions: Service Date/Time: Thursday, October 20, 2016 12:03 - CONCLUSION: Nonspecific bowel gas. Maximiliano Nielsen MD FACR Objective Remarks GENERAL: Critically ill-appearing male intubated and sedated. SKIN: Warm and dry. HEAD: Atraumatic. Normocephalic. EYES: Pupils equal and round, 2 mm. No scleral icterus, or nystagmus. No injection or drainage. ENT: No nasal bleeding or discharge. Mucous membranes pink and moist. Orotracheally intubated NECK: Trachea midline. No JVD. CARDIOVASCULAR: Regular rate, and regular rhythm. RESPIRATORY: Mechanical ventilation Clear to auscultation. Breath sounds equal bilaterally. GASTROINTESTINAL: Abdomen soft, non-tender, nondistended. No guarding. Well- healed midline abdominal scar noted OGT in situ MUSCULOSKELETAL: No obvious deformities. NEUROLOGICAL:GCS 3T. Off sedation ,pt not following commands, withdrawal to pain , right upper and lower extremity. Procedures Planned lumbar puncture Date of Insertion: Oct 19, 2016 Date of Insertion: Oct 20, 2016 Line: Central Venous Catheter Side: Left Location: Subclavian A/P Assessment and Plan Plan by systems: Neurologic: Toxic encephalopathy versus metabolic encephalopathy Alcohol use disorder Right Subacute basal ganglia infarct Meningitis -On Fentanyl infusion for sedation, daily sedation vacation. Monitor neuro status -CT 10/19no acute pathology, 10/20- Old right basal ganglia infarct -MRI 10/20-mild restricted diffusion right basal ganglia,characteristic of subacute infarction - ASA 325mg /daily -10/19 Expanded urine tox screen- positive for amphetamines, cannabinoids, opiates -Neurology following- Dr. Macias -Monitor for alcohol withdrawal-Ativan 2 mg every 4 hours when necessary -Monitor for seizure activity -Lumbar puncture 10/2116-[id number] cocci -10/20 EEG-severe encephalopathy -Thiamine and folate daily Respiratory: -Mechanical ventilation-AC 18/550/.45/5, -Continue with vent support keep sat >92% -ICU vent bundle, CPAP trials as lane -Bronchodilators scheduled every 4 hours, every 2 hours when necessary -Maintain head of bed 30 CV: -Monitor HR and BP keep MAP>65mmHg - ROSIBEL 10/22 endocarditis ,aortic vegetations, EF 55% - Cardiology following , Dr. 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 Central line RSC (10/20) CCT 30 mins Ranjana Arnold MD Oct 24, 2016 07:40
[2016-10-24] MEDS: CHLORHEXIDINE 0.12% (ORAL KIT) 15 ML CUP MT SCH ×2 (08:00→22:04)
[2016-10-24] MEDS: RIFAMPIN 150 MG CAP PO SCH ×2 (08:40→22:09)
[2016-10-24] MEDS: ASPIRIN 81 MG CHEW TAB CHEW SCH (08:40)
[2016-10-24] MEDS: THIAMINE HCL 100 MG TAB PO SCH (08:40)
[2016-10-24] MEDS: FOLIC ACID 1 MG TAB PO SCH (08:40)
[2016-10-24] MEDS: DOCUSATE SODIUM 100 MG/10 ML UDC PO SCH ×2 (08:40→22:05)
[2016-10-24] MEDS: PANTOPRAZOLE SODIUM 40 MG VIAL IV SCH (08:40)
[2016-10-24] MEDS: SODIUM CHLORIDE 0.9% FLUSH 5 ML FLUSH IV FLUSH SCH ×2 (08:41→22:04)
[2016-10-24] MEDS: SENNOSIDES SYRUP 8.8 MG/5 ML CUP PO SCH (08:41)
[2016-10-24] MEDS: LORazepam 2 MG/ML VIAL IV PUSH PRN ×3 (08:47→23:55)
[2016-10-24] MEDS: ONDANSETRON HCL 4 MG/2 ML VIAL IV PRN (08:47)
[2016-10-24] MEDS ORDERED: DEXTROSE 5% IN WATE 1000ML INJ 1,000 ML IV SCH (09:00)
[2016-10-24] MEDS ORDERED: BUMETANIDE INJ 1 MG/4 ML VIAL IV PUSH ONE (09:00)
[2016-10-24 16:10] LABS: CSF CRYPTOCOCCUS AG CONF ND (NOT DETECTD)
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
[2016-10-24] MEDS: RESP: ALBUTEROL 2.5 MG/IPRATROPIUM 0.5 MG NEB (PRN) NEB (20:34)
[2016-10-24] MEDS: GENTAMICIN INJ 275 MG in SODIUM CHLORIDE 0.9% INJ 100 ML IV SCH (22:04)
[2016-10-25] VITALS (18 sets, daily range): BP systolic 100–133; BP diastolic 63–89; PULSE 69–84; RESP 16–18; TEMP 98.5–99.3; O2SAT 91–96
[2016-10-25] MEDS: fentaNYL DRIP 250 ML IV SCH ×3 (01:04→19:35)
[2016-10-25] MEDS: PENICILLIN G SODIUM INJ 4,000,000 UNITS in SODIUM CHLORIDE 0.9% INJ 100 ML IV SCH ×6 (01:06→19:32)
[2016-10-25] MEDS: INSULIN NovoLIN REGULAR SUPPLEMENTAL SCALE SQ SCH ×4 (03:54→19:38)
[2016-10-25] MEDS: DEXAMETHASONE SOD PHOS 20 MG/5 ML VIAL IV SCH ×3 (04:58→17:25)
[2016-10-25] MEDS: LORazepam 2 MG/ML VIAL IV PUSH PRN ×5 (05:05→23:20)
[2016-10-25 05:20] LABS: AUTOMATED NEUTROPHIL # 17.3 TH/MM3 (1.8-7.7); BASOPHIL % 0.2 % (0.0-2.0); HEMATOCRIT 40.3 % (39.0-51.0); HEMO FLAGS DIFF FINAL; LYMPHOCYTE # 2.3 TH/MM3 (1.0-4.8); MEAN CORPUSCULAR HEMOGLOBIN 31.9 PG (27.0-34.0); MEAN CORPUSCULAR HGB CONC 33.3 % (32.0-36.0); MONO % 6.7 % (0.0-8.0); NEUT % 82.1 % (16.0-70.0); PLATELET COUNT 244 TH/MM3 (150-450); RED BLOOD COUNT 4.19 MIL/MM3 (4.50-5.90); RED CELL DISTRIBUTION WIDTH 13.8 % (11.6-17.2); WHITE BLOOD COUNT 21.1 TH/MM3 (4.0-11.0)
[2016-10-25 05:50] LABS: ANION GAP 7 MEQ/L (5-15); AST (GOT) 56 U/L (15-37); BICARBONATE 32.5 MEQ/L (21.0-32.0); BLOOD UREA NITROGEN 37 MG/DL (7-18); CHLORIDE 112 MEQ/L (98-107); GLOMERULAR FILTRATION RATE 91 ML/MIN (>89); POTASSIUM 3.9 MEQ/L (3.5-5.1); SODIUM (NA) 151 MEQ/L (136-145)
[2016-10-25 05:53] LABS: ALKALINE PHOSPHATASE 130 U/L (45-117); ALT (GPT) 95 U/L (12-78); TOTAL BILIRUBIN ADULT 0.8 MG/DL (0.2-1.0)
[2016-10-25] MEDS: FREE WATER G-TUBE SCH ×4 (06:00→23:20)
--- NOTE | 2016-10-25 07:30 | HHI.CCPN ---
Subjective Remarks/Hospital Course 51-year-old male with history of chronic substance use and alcohol use, was recently seen in the ER apparently for UTI earlier this a.m.,CT scanshowing possible pyelonephritis, with perinephric edema and subsequently discharged. This subsequent presentation to the ED today brought in by EMS, because he was found in the [place] by bystanders, disoriented,unknown LOC. According to EMS, they believe that he may have used some crack cocaine. No history was obtainable in the ED, laboratory and imaging studies were performed. The patient was noted to have leukocytosis, with a WBC count of 31, with an initial lactate of 7.3 .CT of the head showed no acute abnormality .Upon my entering the ED to examine the patient, supine in 4 point restraints,combative, not responding, but awake. He is diaphoretic and tachycardic , HR 115-120's. Critical care medicine was consulted for treatment and management. Subjective 10/20 Afebrile. Last evening, the patient was noted to be moving all 4 extremities, requiring 4. restraints in addition of the Precedex infusion. Noncommunicative, combative and motor strength 5/5. Approximately 2:30 AM, the patient was noted to be nonresponsive off sedation, left hemiplegia, with no gag reflex. The patient was emergently intubated for airway protection. ABGs were within normal limits. Repeat CT at 4 AM was unremarkable. MRI obtained today, noted mild restricted diffusion right basal ganglia characteristic of subacute infarction. One dose of aspirin was given, neurology was consulted appreciate recommendations. Carotid Doppler studies, echo pending. 10/24 Patient is sedated with Fentanyl and intubated. Afebrile.Tolerating tube feeds, 10/25 No acute events overnight. Sedated with Fentanyl and intubated. Afebrile. Objective Vital Signs Date Time Temp Pulse Resp B/P Pulse Ox O2 Delivery O2 Flow Rate FiO2 10/25/16 06:00 77 10/25/16 04:12 92 40 10/25/16 04:00 98.5 18 120/80 Intake and Output 10/24/16 10/24/16 10/25/16 08:00 16:00 00:00 Intake Total 946 ml 1898 ml 680 ml Output Total 1300 ml 3300 ml 2350 ml Balance -354 ml -1402 ml -1670 ml Result Diagram: 10/25/16 0449 10/25/16 0449 Other Results Laboratory Tests Test 10/25/16 04:49 White Blood Count 21.1 TH/MM3 Red Blood Count 4.19 MIL/MM3 Hemoglobin 13.4 GM/DL Hematocrit 40.3 % Mean Corpuscular Volume 96.0 FL Mean Corpuscular Hemoglobin 31.9 PG Mean Corpuscular Hemoglobin 33.3 % Concent Red Cell Distribution Width 13.8 % Platelet Count 244 TH/MM3 Mean Platelet Volume 9.5 FL Neutrophils (%) (Auto) 82.1 % Lymphocytes (%) (Auto) 11.0 % Monocytes (%) (Auto) 6.7 % Eosinophils (%) (Auto) 0.0 % Basophils (%) (Auto) 0.2 % Neutrophils # (Auto) 17.3 TH/MM3 Lymphocytes # (Auto) 2.3 TH/MM3 Monocytes # (Auto) 1.4 TH/MM3 Eosinophils # (Auto) 0.0 TH/MM3 Basophils # (Auto) 0.0 TH/MM3 CBC Comment DIFF FINAL Differential Comment Sodium Level 151 MEQ/L Potassium Level 3.9 MEQ/L Chloride Level 112 MEQ/L Carbon Dioxide Level 32.5 MEQ/L Anion Gap 7 MEQ/L Blood Urea Nitrogen 37 MG/DL Creatinine 0.88 MG/DL Estimat Glomerular Filtration 91 ML/MIN Rate Random Glucose 295 MG/DL Calcium Level 9.2 MG/DL Phosphorus Level 3.4 MG/DL Magnesium Level 2.0 MG/DL Total Bilirubin 0.8 MG/DL Aspartate Amino Transf 56 U/L (AST/SGOT) Alanine Aminotransferase 95 U/L (ALT/SGPT) Alkaline Phosphatase 130 U/L Total Protein 6.2 GM/DL Albumin 2.1 GM/DL Imaging Last Impressions Chest X-Ray 10/24/16 0600 Signed Impressions: Service Date/Time: Monday, October 24, 2016 04:30 - CONCLUSION: 1. Cardiomegaly and findings of vascular congestion without overt failure. There has been no significant change when compared to the prior exam. John Hobson MD Lumbar Puncture Fluoroscopy 10/21/16 0000 Signed Impressions: Service Date/Time: Friday, October 21, 2016 15:20 - CONCLUSION: Uncomplicated fluoroscopically guided lumbar puncture with pressures as above. 12 cc of pus was collected and sent to the lab. Dr. Reid was notified. Melvin Nielsen MD Head CT 10/20/16 0000 Signed Impressions: Service Date/Time: Thursday, October 20, 2016 03:40 - CONCLUSION: 1. No evidence of acute intracranial pathology. No masses are identified. 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 Micha Wallace MD Brain MRI 10/20/16 Signed Impressions: Service Date/Time: Thursday, October 20, 2016 09:50 - CONCLUSION: 1. Focal area of mild restricted diffusion in the right basal ganglia with increased signal on the flair and T2-weighted sequence characteristic of an area of subacute infarction. 2. Mild atrophy and chronic small vessel ischemic change. 3. No acute hemorrhage or mass effect. Micha Wallace MD Abdomen X-Ray 10/20/16 Signed Impressions: Service Date/Time: Thursday, October 20, 2016 12:03 - CONCLUSION: Nonspecific bowel gas. Maximiliano Nielsen MD FACR Objective Remarks GENERAL: Critically ill-appearing male intubated and sedated. SKIN: Warm and dry. HEAD: Atraumatic. Normocephalic. EYES: Pupils equal and round, 2 mm. No scleral icterus, or nystagmus. No injection or drainage. ENT: No nasal bleeding or discharge. Mucous membranes pink and moist. Orotracheally intubated NECK: Trachea midline. No JVD. CARDIOVASCULAR: Regular rate, and regular rhythm. RESPIRATORY: Mechanical ventilation Clear to auscultation. Breath sounds equal bilaterally. GASTROINTESTINAL: Abdomen soft, non-tender, nondistended. No guarding. Well- healed midline abdominal scar noted OGT in situ MUSCULOSKELETAL: No obvious deformities. NEUROLOGICAL:GCS 3T. Off sedation ,pt not following commands, withdrawal to pain , right upper and lower extremity. Date of Insertion: Oct 19, 2016 Date of Insertion: Oct 20, 2016 Line: Central Venous Catheter Side: Left Location: Subclavian A/P Assessment and Plan Plan by systems: Neurologic: Toxic encephalopathy versus metabolic encephalopathy Alcohol use disorder Right Subacute basal ganglia infarct Meningitis -On Fentanyl infusion for sedation, daily sedation vacation. Monitor neuro status -CT 10/19no acute pathology, 10/20- Old right basal ganglia infarct -MRI 10/20-mild restricted diffusion right basal ganglia,characteristic of subacute infarction - ASA 325mg /daily -10/19 Expanded urine tox screen- positive for amphetamines, cannabinoids, opiates -Neurology following- Dr. Macias -Monitor for alcohol withdrawal-Ativan 2 mg every 4 hours when necessary -Monitor for seizure activity -Lumbar puncture 10/[id number] cocci -10/20 EEG-severe encephalopathy -Thiamine and folate daily Respiratory: -Mechanical ventilation-AC 18/550/.40/5, -Continue with vent support keep sat >92% -ICU vent bundle, CPAP trials as lane -Bronchodilators scheduled every 6 hours, every 2 hours when necessary -Maintain head of bed 30 CV: -Monitor HR and BP keep MAP>65mmHg - ROSIBEL 10/22 endocarditis ,aortic vegetations, EF 55% - Cardiology following , Dr. Ritter Renal: Dehydration-resolved Renal insufficiency Hypernatremia -Monitor renal function, I/O's, electrolytes replacement per protocol -On Free H20 300ml Q6, d/c IVF, monitor sodium level GI: Elevated LFT's. 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 Central line RSC (10/20) CCT 30 mins Ranjana Arnold MD Oct 25, 2016 07:30
[2016-10-25] MEDS: ASPIRIN 81 MG CHEW TAB CHEW SCH (08:27)
[2016-10-25] MEDS: SODIUM CHLORIDE 0.9% FLUSH 5 ML FLUSH IV FLUSH SCH ×2 (08:27→19:32)
[2016-10-25] MEDS: PANTOPRAZOLE SODIUM 40 MG VIAL IV SCH (08:27)
[2016-10-25] MEDS: FOLIC ACID 1 MG TAB PO SCH (08:27)
[2016-10-25] MEDS: CHLORHEXIDINE 0.12% (ORAL KIT) 15 ML CUP MT SCH ×2 (08:27→19:33)
[2016-10-25] MEDS: SENNOSIDES SYRUP 8.8 MG/5 ML CUP PO SCH (08:48)
[2016-10-25] MEDS: RIFAMPIN 150 MG CAP PO SCH (08:49)
[2016-10-25] MEDS: THIAMINE HCL 100 MG TAB PO SCH (08:56)
[2016-10-25] MEDS: RESP: ALBUTEROL 2.5 MG/IPRATROPIUM 0.5 MG NEB (SCH) NEB ×3 (09:18→20:18)
[2016-10-25] MEDS: DOCUSATE SODIUM 100 MG/10 ML UDC PO SCH ×2 (10:08→19:32)
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
[2016-10-25] MEDS: GENTAMICIN INJ 275 MG in SODIUM CHLORIDE 0.9% INJ 100 ML IV SCH (19:32)
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
[2016-10-26] VITALS (17 sets, daily range): BP systolic 100–144; BP diastolic 63–93; PULSE 70–116; RESP 14–28; TEMP 98.4–99.9; O2SAT 94–100
[2016-10-26] MEDS: PENICILLIN G SODIUM INJ 4,000,000 UNITS in SODIUM CHLORIDE 0.9% INJ 100 ML IV SCH ×6 (00:43→19:52)
[2016-10-26] MEDS: fentaNYL DRIP 250 ML IV SCH ×2 (02:40→06:15)
[2016-10-26] MEDS: CHLORHEXIDINE GLUCONATE 2 % 1 PACK (2 CLOTHS) TOP SCH (02:41)
[2016-10-26] MEDS: INSULIN NovoLIN REGULAR SUPPLEMENTAL SCALE SQ SCH ×4 (02:41→19:52)
[2016-10-26] MEDS: RESP: ALBUTEROL 2.5 MG/IPRATROPIUM 0.5 MG NEB (SCH) NEB ×4 (03:15→21:02)
--- NOTE | 2016-10-26 04:17 | RADRPT ---
EXAM DATE/TIME: 10/26/2016 03:17 [facility] COMPARISON: CHEST SINGLE AP, October 24, 2016, 4:30. INDICATIONS : Shortness of breath, possible pulmonary disease. MEDICAL HISTORY : None. SURGICAL HISTORY : None. ENCOUNTER: Subsequent ACUITY: 1 week PAIN SCORE: Non-responsive. LOCATION: Bilateral chest FINDINGS: The cardiac silhouette is normal in transverse diameter. Support lines and tubes are in satisfactory position. There is subsegmental atelectasis in the both bases. No pleural effusions are identified. CONCLUSION: 1. Subsegmental atelectasis both bases. John Hobson MD on October 26, 2016 at 4:15 Board Certified Radiologist. This report was verified electronically.
[2016-10-26] MEDS: LORazepam 2 MG/ML VIAL IV PUSH PRN ×5 (04:42→22:35)
[2016-10-26] MEDS: FREE WATER G-TUBE SCH ×2 (04:42→12:00)
[2016-10-26 06:54] LABS: AUTOMATED NEUTROPHIL # 16.1 TH/MM3 (1.8-7.7); BASOPHIL % 0.2 % (0.0-2.0); EOSINOPHIL # 0.1 TH/MM3 (0-0.4); EOSINOPHIL % 0.3 % (0.0-4.0); HEMATOCRIT 37.3 % (39.0-51.0); HEMO FLAGS DIFF FINAL; LYMPH % 16.7 % (9.0-44.0); LYMPHOCYTE # 3.5 TH/MM3 (1.0-4.8); MEAN CORPUSCULAR HEMOGLOBIN 32.2 PG (27.0-34.0); MEAN CORPUSCULAR HGB CONC 33.2 % (32.0-36.0); MONO % 6.8 % (0.0-8.0); PLATELET COUNT 216 TH/MM3 (150-450); RED BLOOD COUNT 3.85 MIL/MM3 (4.50-5.90); RED CELL DISTRIBUTION WIDTH 13.5 % (11.6-17.2); WHITE BLOOD COUNT 21.2 TH/MM3 (4.0-11.0)
[2016-10-26 07:16] LABS: ALKALINE PHOSPHATASE 117 U/L (45-117); ALT (GPT) 84 U/L (12-78); ANION GAP 6 MEQ/L (5-15); AST (GOT) 39 U/L (15-37); BICARBONATE 30.9 MEQ/L (21.0-32.0); BLOOD UREA NITROGEN 38 MG/DL (7-18); CHLORIDE 111 MEQ/L (98-107); GLOMERULAR FILTRATION RATE 90 ML/MIN (>89); MAGNESIUM 2.1 MG/DL (1.5-2.5); POTASSIUM 3.4 MEQ/L (3.5-5.1); SODIUM (NA) 148 MEQ/L (136-145); TOTAL BILIRUBIN ADULT 0.6 MG/DL (0.2-1.0)
[2016-10-26] MEDS: CHLORHEXIDINE 0.12% (ORAL KIT) 15 ML CUP MT SCH ×2 (08:00→19:53)
[2016-10-26] MEDS: DOCUSATE SODIUM 100 MG/10 ML UDC PO SCH ×2 (08:51→19:52)
[2016-10-26] MEDS: SODIUM CHLORIDE 0.9% FLUSH 5 ML FLUSH IV FLUSH SCH ×2 (08:52→19:53)
[2016-10-26] MEDS: ASPIRIN 81 MG CHEW TAB CHEW SCH (08:52)
[2016-10-26] MEDS: PANTOPRAZOLE SODIUM 40 MG VIAL IV SCH (08:52)
[2016-10-26] MEDS: FOLIC ACID 1 MG TAB PO SCH (08:52)
[2016-10-26] MEDS: SENNOSIDES SYRUP 8.8 MG/5 ML CUP PO SCH (08:56)
[2016-10-26] MEDS: THIAMINE HCL 100 MG TAB PO SCH (08:56)
--- NOTE | 2016-10-26 10:52 | HHI.CCPN ---
Subjective Remarks/Hospital Course 51-year-old male with history of chronic substance use and alcohol use, was recently seen in the ER apparently for UTI earlier this a.m.,CT scanshowing possible pyelonephritis, with perinephric edema and subsequently discharged. This subsequent presentation to the ED today brought in by EMS, because he was found in the [place] by bystanders, disoriented,unknown LOC. According to EMS, they believe that he may have used some crack cocaine. No history was obtainable in the ED, laboratory and imaging studies were performed. The patient was noted to have leukocytosis, with a WBC count of 31, with an initial lactate of 7.3 .CT of the head showed no acute abnormality .Upon my entering the ED to examine the patient, supine in 4 point restraints,combative, not responding, but awake. He is diaphoretic and tachycardic , HR 115-120's. Critical care medicine was consulted for treatment and management. Subjective 10/20 Afebrile. Last evening, the patient was noted to be moving all 4 extremities, requiring 4. restraints in addition of the Precedex infusion. Noncommunicative, combative and motor strength 5/5. Approximately 2:30 AM, the patient was noted to be nonresponsive off sedation, left hemiplegia, with no gag reflex. The patient was emergently intubated for airway protection. ABGs were within normal limits. Repeat CT at 4 AM was unremarkable. MRI obtained today, noted mild restricted diffusion right basal ganglia characteristic of subacute infarction. One dose of aspirin was given, neurology was consulted appreciate recommendations. Carotid Doppler studies, echo pending. 10/24 Patient is sedated with Fentanyl and intubated. Afebrile.Tolerating tube feeds, 10/25 No acute events overnight. Sedated with Fentanyl and intubated. Afebrile. 10/26: Receiving only Fentanyl for sedation. Awake, follows commands on RUE and RLE. Flaccid on Left Objective Vital Signs Date Time Temp Pulse Resp B/P Pulse Ox O2 Delivery O2 Flow Rate FiO2 10/26/16 10:00 85 10/26/16 08:00 40 10/26/16 08:00 98.7 14 125/75 95 Intake and Output 10/25/16 10/25/16 10/26/16 08:00 16:00 00:00 Intake Total 1825 ml 1349 ml 760 ml Output Total 1350 ml 1500 ml 850 ml Balance 475 ml -151 ml -90 ml Result Diagram: 10/26/1659910/26/16599 Imaging Last Impressions Chest X-Ray 10/24/16599 Signed Impressions: Service Date/Time: Monday, October 24, 2016 04:30 - CONCLUSION: 1. Cardiomegaly and findings of vascular congestion without overt failure. There has been no significant change when compared to the prior exam. John Hobson MD Lumbar Puncture Fluoroscopy 10/21/16 0000 Signed Impressions: Service Date/Time: Friday, October 21, 2016 15:20 - CONCLUSION: Uncomplicated fluoroscopically guided lumbar puncture with pressures as above. 12 cc of pus was collected and sent to the lab. Dr. Reid was notified. Melvin Nielsen MD Head CT 10/20/16 Signed Impressions: Service Date/Time: Thursday, October 20, 2016 03:40 - CONCLUSION: 1. No evidence of acute intracranial pathology. No masses are identified. Old right basal ganglia infarct John Hobson MD Carotid Artery Ultrasound 10/20/16 Signed Impressions: Service Date/Time: Thursday, October 20, 2016 14:35 - CONCLUSION: Unremarkable exam with no evidence of stenosis. Micha Wallace MD Brain MRI 10/20/16 0000 Signed Impressions: Service Date/Time: Thursday, October 20, 2016 09:50 - CONCLUSION: 1. Focal area of mild restricted diffusion in the right basal ganglia with increased signal on the flair and T2-weighted sequence characteristic of an area of subacute infarction. 2. Mild atrophy and chronic small vessel ischemic change. 3. No acute hemorrhage or mass effect. Micha Wallace MD Abdomen X-Ray 10/20/16 0000 Signed Impressions: Service Date/Time: Thursday, October 20, 2016 12:03 - CONCLUSION: Nonspecific bowel gas. Maximiliano Nielsen MD FACR Objective Remarks GENERAL: Critically ill-appearing male intubated and sedated. SKIN: Warm and dry. HEAD: Atraumatic. Normocephalic. EYES: Pupils equal and round, 2 mm. No scleral icterus, or nystagmus. No injection or drainage. ENT: No nasal bleeding or discharge. Mucous membranes pink and moist. Orotracheally intubated NECK: Trachea midline. No JVD. CARDIOVASCULAR: Regular rate, and regular rhythm. RESPIRATORY: Mechanical ventilation Clear to auscultation. Breath sounds equal bilaterally. GASTROINTESTINAL: Abdomen soft, non-tender, nondistended. No guarding. Well- healed midline abdominal scar noted OGT in situ MUSCULOSKELETAL: No obvious deformities. NEUROLOGICAL: Off sedation ,pt wakes up following commands right upper and lower extremity, hemiparetic on the left side Urinary Catheter: Yes Assessment to: Continue Date of Insertion: Oct 19, 2016 Vascular Central Line Catheter: Yes Assessment to: Continue Date of Insertion: Oct 20, 2016 Line: Central Venous Catheter Side: Left Location: Subclavian A/P Assessment and Plan Plan by systems: Neurologic: Toxic metabolic encephalopathy Alcohol/substance use disorder Right Subacute basal ganglia infarct, with L hemiplegia Meningitis -On Fentanyl infusion for sedation, daily sedation vacation. Monitor neuro status -CT 10/19no acute pathology, 10/20- Old right basal ganglia infarct -MRI 10/20-right basal ganglia subacute infarction -ASA 325mg /daily -10/19 Expanded urine tox screen- positive for amphetamines, cannabinoids, opiates -Neurology following- Dr. Macias -Monitor for alcohol withdrawal-Ativan 2 mg every 4 hours when necessary -Monitor for seizure activity -Lumbar puncture 10/2189-[id number]-[id number] cocci on gram stain, no growth final culture. LP fluid studies consistent with bacterial meningitis -10/20 EEG-severe encephalopathy -Thiamine and folate daily Respiratory: -Mechanical ventilation-AC 18/550/.40/5, -Continue with vent support keep sat >92% -ICU vent bundle, CPAP trials as lane, possible extubation today -Bronchodilators scheduled every 6 hours, every 2 hours when necessary -Maintain head of bed 30 CV: -Monitor HR and BP keep MAP>65mmHg - ROSIBEL 10/22 endocarditis ,aortic vegetations, EF 55% - Cardiology following , Dr. Ritter Renal: Dehydration-resolved Renal insufficiency Hypernatremia -Monitor renal function, I/O's, electrolytes replacement per protocol -On Free H20 300ml Q6, monitor sodium level -Give Bumex 1 mg IV x1 today GI: Elevated LFT's. 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 Central line RSC (10/20) CCT 30 mins Katerin Conner MD Oct 26, 2016 10:52
[2016-10-26] MEDS ORDERED: PHARMACY ORDERED LAB XX ONE (19:45)
[2016-10-26] MEDS: GENTAMICIN INJ 275 MG in SODIUM CHLORIDE 0.9% INJ 100 ML IV SCH (19:52)
[2016-10-26] MEDS: POTASSIUM CHLOR 20 MEQ PREMIX 100 ML IV PRN (22:35)
[2016-10-26] MEDS: SODIUM CHLORIDE 0.9% FLUSH 5 ML FLUSH IV FLUSH PRN (22:35)
[2016-10-27] VITALS (14 sets, daily range): BP systolic 130–172; BP diastolic 83–103; PULSE 99–122; RESP 19–33; TEMP 98–98.8; O2SAT 91–96
[2016-10-27] MEDS: POTASSIUM CHLOR 20 MEQ PREMIX 100 ML IV PRN (00:27)
[2016-10-27] MEDS: PENICILLIN G SODIUM INJ 4,000,000 UNITS in SODIUM CHLORIDE 0.9% INJ 100 ML IV SCH ×6 (01:29→21:02)
[2016-10-27] MEDS: INSULIN NovoLIN REGULAR SUPPLEMENTAL SCALE SQ SCH ×4 (01:29→20:01)
[2016-10-27] MEDS: LORazepam 2 MG/ML VIAL IV PUSH PRN ×2 (02:56→21:11)
[2016-10-27] MEDS: SODIUM CHLORIDE 0.9% FLUSH 5 ML FLUSH IV FLUSH PRN (02:56)
[2016-10-27] MEDS: CHLORHEXIDINE GLUCONATE 2 % 1 PACK (2 CLOTHS) TOP SCH (02:56)
[2016-10-27] MEDS: RESP: ALBUTEROL 2.5 MG/IPRATROPIUM 0.5 MG NEB (SCH) NEB ×4 (03:41→20:50)
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
[2016-10-27 07:42] LABS: BASOPHIL # 0.1 TH/MM3 (0-0.2); BASOPHIL % 0.2 % (0.0-2.0); EOSINOPHIL % 0.1 % (0.0-4.0); HEMATOCRIT 41.9 % (39.0-51.0); HEMO FLAGS DIFF FINAL; LYMPH % 7.9 % (9.0-44.0); LYMPHOCYTE # 2.3 TH/MM3 (1.0-4.8); MEAN CELL VOLUME 96.7 FL (80.0-100.0); MEAN CORPUSCULAR HEMOGLOBIN 31.7 PG (27.0-34.0); MEAN CORPUSCULAR HGB CONC 32.8 % (32.0-36.0); MONO % 5.6 % (0.0-8.0); NEUT % 86.2 % (16.0-70.0); PLATELET COUNT 204 TH/MM3 (150-450); RED BLOOD COUNT 4.34 MIL/MM3 (4.50-5.90); RED CELL DISTRIBUTION WIDTH 13.3 % (11.6-17.2)
--- NOTE | 2016-10-27 08:00 | HHI.CCPN ---
Subjective Remarks/Hospital Course 51-year-old male with history of chronic substance use and alcohol use, was recently seen in the ER apparently for UTI earlier this a.m.,CT scanshowing possible pyelonephritis, with perinephric edema and subsequently discharged. This subsequent presentation to the ED today brought in by EMS, because he was found in the [place] by bystanders, disoriented,unknown LOC. According to EMS, they believe that he may have used some crack cocaine. No history was obtainable in the ED, laboratory and imaging studies were performed. The patient was noted to have leukocytosis, with a WBC count of 31, with an initial lactate of 7.3 .CT of the head showed no acute abnormality .Upon my entering the ED to examine the patient, supine in 4 point restraints,combative, not responding, but awake. He is diaphoretic and tachycardic , HR 115-120's. Critical care medicine was consulted for treatment and management. Subjective 10/20 Afebrile. Last evening, the patient was noted to be moving all 4 extremities, requiring 4. restraints in addition of the Precedex infusion. Noncommunicative, combative and motor strength 5/5. Approximately 2:30 AM, the patient was noted to be nonresponsive off sedation, left hemiplegia, with no gag reflex. The patient was emergently intubated for airway protection. ABGs were within normal limits. Repeat CT at 4 AM was unremarkable. MRI obtained today, noted mild restricted diffusion right basal ganglia characteristic of subacute infarction. One dose of aspirin was given, neurology was consulted appreciate recommendations. Carotid Doppler studies, echo pending. 10/24 Patient is sedated with Fentanyl and intubated. Afebrile.Tolerating tube feeds, 10/25 No acute events overnight. Sedated with Fentanyl and intubated. Afebrile. 10/26: Receiving only Fentanyl for sedation. Awake, follows commands on RUE and RLE. Flaccid on Left 10/27 Patient was extubated yesterday on 3L oxygen with good sats. Afebrile. WBC increased 29 today from 21. Objective Vital Signs Date Time Temp Pulse Resp B/P Pulse Ox O2 Delivery O2 Flow Rate FiO2 10/27/16 06:00 100 10/27/16 04:00 98.8 24 155/96 94 10/26/16 21:02 Nasal Cannula 3.00 10/26/16 10:40 40 Intake and Output 10/26/16 10/26/16 10/27/16 08:00 16:00 00:00 Intake Total 1329 ml 595 ml 1133 ml Output Total 1300 ml 1500 ml 2500 ml Balance 29 ml -905 ml -1367 ml Result Diagram: 10/27/16 0723 10/26/16 0600 Other Results Laboratory Tests Test 10/26/16 10/27/16 19:30 07:23 Gentamicin Level Trough LESS THAN 0.2 MCG/ML White Blood Count 29.0 TH/MM3 Red Blood Count 4.34 MIL/MM3 Hemoglobin 13.8 GM/DL Hematocrit 41.9 % Mean Corpuscular Volume 96.7 FL Mean Corpuscular Hemoglobin 31.7 PG Mean Corpuscular Hemoglobin 32.8 % Concent Red Cell Distribution Width 13.3 % Platelet Count 204 TH/MM3 Mean Platelet Volume 9.5 FL Neutrophils (%) (Auto) 86.2 % Lymphocytes (%) (Auto) 7.9 % Monocytes (%) (Auto) 5.6 % Eosinophils (%) (Auto) 0.1 % Basophils (%) (Auto) 0.2 % Neutrophils # (Auto) 25.0 TH/MM3 Lymphocytes # (Auto) 2.3 TH/MM3 Monocytes # (Auto) 1.6 TH/MM3 Eosinophils # (Auto) 0.0 TH/MM3 Basophils # (Auto) 0.1 TH/MM3 CBC Comment DIFF FINAL Differential Comment Imaging Last Impressions Chest X-Ray 10/26/16 0000 Signed Impressions: Service Date/Time: Wednesday, October 26, 2016 03:17 - CONCLUSION: 1. Subsegmental atelectasis both bases. John Hobson MD Liver Ultrasound 10/25/16 0000 Signed Impressions: Service Date/Time: Tuesday, October 25, 2016 19:05 - CONCLUSION: 1. Fatty liver enlarged to 20 cm in length. Multiple gallstones with trace fluid around gallbladder wall which is mildly thickened at 4 mm. No biliary ductal dilatation. Clifton Watson MD Lumbar Puncture Fluoroscopy 10/21/16 0000 Signed Impressions: Service Date/Time: Friday, October 21, 2016 15:20 - CONCLUSION: Uncomplicated fluoroscopically guided lumbar puncture with pressures as above. 12 cc of pus was collected and sent to the lab. Dr. Reid was notified. Melvin Nielsen MD Head CT 10/20/16 0000 Signed Impressions: Service Date/Time: Thursday, October 20, 2016 03:40 - CONCLUSION: 1. No evidence of acute intracranial pathology. No masses are identified. 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 Micha Wallace MD Brain MRI 10/20/16 0000 Signed Impressions: Service Date/Time: Thursday, October 20, 2016 09:50 - CONCLUSION: 1. Focal area of mild restricted diffusion in the right basal ganglia with increased signal on the flair and T2-weighted sequence characteristic of an area of subacute infarction. 2. Mild atrophy and chronic small vessel ischemic change. 3. No acute hemorrhage or mass effect. Micha Wallace MD Abdomen X-Ray 10/20/16 0000 Signed Impressions: Service Date/Time: Thursday, October 20, 2016 12:03 - CONCLUSION: Nonspecific bowel gas. Maximiliano Nielsen MD FACR Objective Remarks GENERAL: 51 yo ill-appearing male extubated on 3L oxygen SKIN: Warm and dry. HEAD: Atraumatic. Normocephalic. EYES: Pupils equal and round, 2 mm. No scleral icterus, or nystagmus. No injection or drainage. ENT: No nasal bleeding or discharge. Mucous membranes pink and moist. NECK: Trachea midline. No JVD. CARDIOVASCULAR: Regular rate, and regular rhythm. RESPIRATORY: Breath sounds equal bilaterally. GASTROINTESTINAL: Abdomen soft, non-tender, nondistended. No guarding. Well- healed midline abdominal scar MUSCULOSKELETAL: No obvious deformities. NEUROLOGICAL: Pt wakes up following commands right upper and lower extremity, hemiparetic on the left side Date of Insertion: Oct 19, 2016 Date of Insertion: Oct 20, 2016 Line: Central Venous Catheter Side: Left Location: Subclavian A/P Assessment and Plan Plan by systems: Neurologic: Toxic metabolic encephalopathy Alcohol/substance use disorder Right Subacute basal ganglia infarct, with L hemiplegia Meningitis -Monitor neuro status and avoid sedatives -CT 10/19no acute pathology, 10/20- Old right basal ganglia infarct -MRI 10/20-right basal ganglia subacute infarction -ASA 325mg /daily -10/19 Expanded urine tox screen- positive for amphetamines, cannabinoids, opiates -Neurology following- Dr. Macias -Monitor for alcohol withdrawal-Ativan 2 mg every 4 hours when necessary -Monitor for seizure activity -Lumbar puncture 10/2184-[id number] cocci on gram stain, no growth final culture. LP fluid studies consistent with bacterial meningitis -10/20 EEG-severe encephalopathy -Thiamine and folate daily Respiratory: -Continue with oxygen keep sat >92% -Bronchodilators scheduled every 6 hours, every 2 hours when necessary -Maintain head of bed 30 -Aspiration precautions CV: -Monitor HR and BP keep MAP>65mmHg - ROSIBEL 10/22 endocarditis ,aortic vegetations, EF 55% - Cardiology following , Dr. Ritter Renal: Dehydration-resolved Renal insufficiency Hypernatremia -Monitor renal function, I/O's, electrolytes replacement per protocol GI: Elevated LFT's. ..trending down -Speech eval diet per speech if patient fails speech consider inserting NGT and start TF. -US Liver: Fatty liver,. Multiple gallstones with trace fluid around gallbladder wall which is mildly thickened at 4 mm. No biliary ductal dilatation. 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 Central line RSC (10/20) Level 3 Ranjana Arnold MD Oct 27, 2016 08:00
[2016-10-27 08:17] LABS: ALKALINE PHOSPHATASE 130 U/L (45-117); ALT (GPT) 75 U/L (12-78); ANION GAP 8 MEQ/L (5-15); AST (GOT) 38 U/L (15-37); BICARBONATE 27.8 MEQ/L (21.0-32.0); BLOOD UREA NITROGEN 25 MG/DL (7-18); CHLORIDE 112 MEQ/L (98-107); GLOMERULAR FILTRATION RATE 91 ML/MIN (>89); MAGNESIUM 1.9 MG/DL (1.5-2.5); POTASSIUM 3.6 MEQ/L (3.5-5.1); SODIUM (NA) 148 MEQ/L (136-145); TOTAL BILIRUBIN ADULT 1.1 MG/DL (0.2-1.0)
[2016-10-27] MEDS: CHLORHEXIDINE 0.12% (ORAL KIT) 15 ML CUP MT SCH ×2 (08:49→19:48)
[2016-10-27] MEDS: PANTOPRAZOLE SODIUM 40 MG VIAL IV SCH (08:50)
[2016-10-27] MEDS: DOCUSATE SODIUM 100 MG/10 ML UDC PO SCH ×2 (08:50→19:48)
[2016-10-27] MEDS: SENNOSIDES SYRUP 8.8 MG/5 ML CUP PO SCH (08:50)
[2016-10-27] MEDS: FOLIC ACID 1 MG TAB PO SCH (08:50)
[2016-10-27] MEDS: SODIUM CHLORIDE 0.9% FLUSH 5 ML FLUSH IV FLUSH SCH ×2 (08:50→19:48)
[2016-10-27] MEDS: ASPIRIN 81 MG CHEW TAB CHEW SCH (08:50)
[2016-10-27] MEDS: THIAMINE HCL 100 MG TAB PO SCH (08:50)
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
[2016-10-27] MEDS: GENTAMICIN INJ 275 MG in SODIUM CHLORIDE 0.9% INJ 100 ML IV SCH (19:47)
[2016-10-28] VITALS (14 sets, daily range): BP systolic 119–141; BP diastolic 75–93; PULSE 102–115; RESP 24–33; TEMP 98.1–98.8; O2SAT 90–98
[2016-10-28] MEDS: LORazepam 2 MG/ML VIAL IV PUSH PRN ×4 (01:42→21:43)
[2016-10-28] MEDS: PENICILLIN G SODIUM INJ 4,000,000 UNITS in SODIUM CHLORIDE 0.9% INJ 100 ML IV SCH ×6 (01:42→21:43)
[2016-10-28] MEDS: INSULIN NovoLIN REGULAR SUPPLEMENTAL SCALE SQ SCH ×4 (02:10→19:50)
[2016-10-28] MEDS: RESP: ALBUTEROL 2.5 MG/IPRATROPIUM 0.5 MG NEB (SCH) NEB ×4 (03:10→20:08)
[2016-10-28] MEDS: CHLORHEXIDINE GLUCONATE 2 % 1 PACK (2 CLOTHS) TOP SCH (04:00)
[2016-10-28 06:53] LABS: AUTOMATED NEUTROPHIL # 28.3 TH/MM3 (1.8-7.7); BASOPHIL % 0.1 % (0.0-2.0); EOSINOPHIL % 0.1 % (0.0-4.0); HEMATOCRIT 42.1 % (39.0-51.0); LYMPH % 6.3 % (9.0-44.0); MEAN CELL VOLUME 97.4 FL (80.0-100.0); MEAN CORPUSCULAR HEMOGLOBIN 31.8 PG (27.0-34.0); MEAN CORPUSCULAR HGB CONC 32.6 % (32.0-36.0); MONO % 5.8 % (0.0-8.0); NEUT % 87.7 % (16.0-70.0); PLATELET COUNT 209 TH/MM3 (150-450); RED BLOOD COUNT 4.32 MIL/MM3 (4.50-5.90); RED CELL DISTRIBUTION WIDTH 13.2 % (11.6-17.2); WHITE BLOOD COUNT 32.3 TH/MM3 (4.0-11.0)
[2016-10-28 07:04] LABS: ALKALINE PHOSPHATASE 147 U/L (45-117); ALT (GPT) 75 U/L (12-78); ANION GAP 7 MEQ/L (5-15); AST (GOT) 30 U/L (15-37); BICARBONATE 27.7 MEQ/L (21.0-32.0); BLOOD UREA NITROGEN 24 MG/DL (7-18); CHLORIDE 111 MEQ/L (98-107); GLOMERULAR FILTRATION RATE 80 ML/MIN (>89); HEMO FLAGS AUTO DIFF; MAGNESIUM 2.2 MG/DL (1.5-2.5); POTASSIUM 3.7 MEQ/L (3.5-5.1); SODIUM (NA) 146 MEQ/L (136-145); TOTAL BILIRUBIN ADULT 0.9 MG/DL (0.2-1.0)
[2016-10-28 07:36] LABS: PHENCYCLIDINE URINE NEG (NEG)
[2016-10-28 07:37] LABS: BATH SALTS (MDPV) UR NEG (NEG); ECSTASY (MDMA) UR NEG (NEG); HEROIN (6-ACETYLMORPHINE) UR NEG (NEG); K2 SPICE UR NEG (NEG)
[2016-10-28 07:38] LABS: OXYCODONE (PERCODAN) NEG (NEG)
[2016-10-28 07:41] LABS: OBMETHADONE UR NEG (NEG)
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
[2016-10-28] MEDS: CHLORHEXIDINE 0.12% (ORAL KIT) 15 ML CUP MT SCH ×2 (08:00→19:49)
[2016-10-28] MEDS: DILTIAZEM HCL 60 MG TAB PO SCH ×4 (08:29→19:50)
[2016-10-28] MEDS: THIAMINE HCL 100 MG TAB PO SCH (08:29)
[2016-10-28] MEDS: SENNOSIDES SYRUP 8.8 MG/5 ML CUP PO SCH (08:29)
[2016-10-28] MEDS: DOCUSATE SODIUM 100 MG/10 ML UDC PO SCH ×2 (08:29→19:50)
[2016-10-28] MEDS: FOLIC ACID 1 MG TAB PO SCH (08:29)
[2016-10-28] MEDS: ASPIRIN 81 MG CHEW TAB CHEW SCH (08:29)
[2016-10-28] MEDS: SODIUM CHLORIDE 0.9% FLUSH 5 ML FLUSH IV FLUSH SCH ×2 (08:30→19:49)
[2016-10-28] MEDS: PANTOPRAZOLE SODIUM 40 MG VIAL IV SCH (08:30)
[2016-10-28 08:34] LABS: BANDS 9 % (0-6); POLYS (SEG NEUTROPHILS) 87 % (16-70); WBC DIFF SAMPLE 100
[2016-10-28 08:40] LABS: PLATELET ESTIMATE SMEAR NORMAL (NORMAL); PLATELET MORPHOLOGY ENLARGED (NORMAL); SCAN/DIFF FINAL DIFF MANUAL
--- NOTE | 2016-10-28 09:06 | RADRPT ---
EXAM DATE/TIME: 10/28/2016 08:00 [facility] COMPARISON: CHEST SINGLE AP, October 26, 2016, 3:17. INDICATIONS : Infiltrates MEDICAL HISTORY : Unobtainable SURGICAL HISTORY : Unobtainable ENCOUNTER: Subsequent ACUITY: 3 weeks PAIN SCORE: Non-responsive. LOCATION: Bilateral chest FINDINGS: A single view of the chest demonstrates bibasilar discoid atelectasis. Right subclavian central line is stable position.. The cardiomediastinal contours are unremarkable. Osseous structures are intact . CONCLUSION: 1. Bibasilar discoid atelectasis. Gatito Abbott MD on October 28, 2016 at 9:03 Board Certified Radiologist. This report was verified electronically.
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
[2016-10-28] MEDS ORDERED: DIATRIZOATE MEGLUM/DIATRIZOATE SOD 9 ML CUP PO ONE (12:15)
[2016-10-28 16:24] LABS: BACTERIA, URINE RARE /hpf; BLOOD, URINE SMALL (NEG); GLUCOSE,URINE 300 mg/dL (NEG); KETONE, URINE NEG (NEG); MUCUS URINE FEW /lpf (OCC); NITRITE,URINE NEG (NEG); PH, URINE 5.5 (5.0-8.5); URINE COLOR YELLOW (YELLW/STRAW)
[2016-10-28 16:26] LABS: COMMENT (UR) CATH-CULTURE IND; CULTURE IF INDICATED CATH CULTURE IND
[2016-10-28] MEDS ORDERED: IOHEXOL 350 MG/ML 10 ML VIAL (for RAD DIAG) IV ONE (17:41)
--- NOTE | 2016-10-28 17:41 | RADRPT ---
EXAM DATE/TIME: 10/28/2016 16:51 [facility] COMPARISON: CT ABDOMEN & PELVIS W CONTRAST, November 18, 2011, 22:16. INDICATIONS : Evaluate for abscess IV CONTRAST: 75 cc Omnipaque 350 (iohexol) IV ; Cumulative dose for multiple exams. ORAL CONTRAST: No oral contrast ingested. RADIATION DOSE: 5.53 CTDIvol (mGy) ; Combined studies - Thorax/Abdomen/Pelvis MEDICAL HISTORY : Cerebrovascular disease. SURGICAL HISTORY : None. ENCOUNTER: Initial ACUITY: 2 days PAIN SCALE: Non-responsive LOCATION: Abdomen TECHNIQUE: Volumetric scanning of the abdomen and pelvis was performed. Using automated exposure control and ad justment of the mA and/or kV according to patient size, radiation dose was kept as low as reasonably achievable to obtain optimal diagnostic quality images. FINDINGS: LOWER LUNGS: Bibasilar consolidation. LIVER: Homogeneous density without lesion. There is no dilation of the biliary tree. No calcified gallston es. SPLEEN: Normal size without lesion. PANCREAS: Within normal limits. KIDNEYS: Normal in size and shape. There is no mass or hydronephrosis. Bilateral nonobstructing renal calculi , largest in the right kidney measures 12 mm and left kidney measures 10 mm. Inflammatory changes in the right perinephric region. ADRENAL GLANDS: Bilateral adrenal nodules again seen. VASCULAR: There is no aortic aneurysm. BOWEL/MESENTERY: Diverticulosis of the colon. There is no free intraperitoneal air or fluid. ABDOMINAL WALL: Within normal limits. RETROPERITONEUM: There is no lymphadenopathy. BLADDER: No wall thickening or mass. REPRODUCTIVE: Within normal limits. INGUINAL: There is no lymphadenopathy or hernia. MUSCULOSKELETAL: Within normal limits for patient age. CONCLUSION: 1. Nonobstructing bilateral renal calculi. 2. Stable bilateral adrenal nodules. 3. Previous mesh placement. No residual hernias. 4. Diverticulosis without diverticulitis. 5. Slight inflammatory changes adjacent to the right kidney, nonspecific. 6. No abscess. Gatito Abbott MD on October 28, 2016 at 17:37 Board Certified Radiologist. This report was verified electronically.
--- NOTE | 2016-10-28 18:00 | RADRPT ---
EXAM DATE/TIME: 10/28/2016 16:51 [facility] COMPARISON: No previous studies available for comparison. INDICATIONS : Evaluate for pneumonia and septic emboli. IV CONTRAST: 75 cc Omnipaque 350 (iohexol) IV ; Cumulative dose for multiple exams. RADIATION DOSE: 5.53 CTDIvol (mGy) ; Combined studies - Thorax/Abdomen/Pelvis MEDICAL HISTORY : Cerebrovascular disease. SURGICAL HISTORY : None. ENCOUNTER: Initial ACUITY: 2 days PAIN SCALE: Non-responsive LOCATION: chest TECHNIQUE: Volumetric scanning of the chest was performed. Using automated exposure control and adjustment of t he mA and/or kV according to patient size, radiation dose was kept as low as reasonably achievable to obtain optimal diagnostic quality images. FINDINGS: LUNGS: Bibasilar areas of consolidation are noted. This has a somewhat linear component to it. No air bronch ograms appreciated. The remaining lungs are clear. PLEURA: There is no pleural thickening or pleural effusion. MEDIASTINUM: The heart and great vessels demonstrate no acute abnormality. There is no mediastinal or hilar lymph adenopathy. AXILLAE: Within normal limits. No lymphadenopathy. SKELETAL: Within normal limits for patient age. MISCELLANEOUS: See the CT of the abdomen and pelvis reported separately. CONCLUSION: 1. Bibasilar consolidation. I'm concerned these could relate to infectious infiltrates. Atelectasis i s felt less likely. Alex Bass Jr., MD on October 28, 2016 at 17:55 Board Certified Radiologist. This report was verified electronically.
[2016-10-28] MEDS: GENTAMICIN INJ 275 MG in SODIUM CHLORIDE 0.9% INJ 100 ML IV SCH (19:49)
[2016-10-29] VITALS (14 sets, daily range): BP systolic 107–136; BP diastolic 72–93; PULSE 96–110; RESP 22–28; TEMP 98–98.7; O2SAT 90–96
[2016-10-29] MEDS: PENICILLIN G SODIUM INJ 4,000,000 UNITS in SODIUM CHLORIDE 0.9% INJ 100 ML IV SCH ×6 (02:13→20:38)
[2016-10-29] MEDS: INSULIN NovoLIN REGULAR SUPPLEMENTAL SCALE SQ SCH ×4 (02:26→20:47)
[2016-10-29] MEDS: RESP: ALBUTEROL 2.5 MG/IPRATROPIUM 0.5 MG NEB (SCH) NEB ×2 (03:35→08:03)
[2016-10-29] MEDS: CHLORHEXIDINE GLUCONATE 2 % 1 PACK (2 CLOTHS) TOP SCH (04:00)
[2016-10-29] MEDS: LORazepam 2 MG/ML VIAL IV PUSH PRN ×3 (04:47→20:44)
[2016-10-29 05:13] LABS: AUTOMATED NEUTROPHIL # 26.8 TH/MM3 (1.8-7.7); BASOPHIL # 0.1 TH/MM3 (0-0.2); BASOPHIL % 0.3 % (0.0-2.0); HEMATOCRIT 39.9 % (39.0-51.0); LYMPH % 7.9 % (9.0-44.0); LYMPHOCYTE # 2.5 TH/MM3 (1.0-4.8); MEAN CELL VOLUME 97.1 FL (80.0-100.0); MEAN CORPUSCULAR HEMOGLOBIN 32.1 PG (27.0-34.0); MONO % 5.3 % (0.0-8.0); NEUT % 86.5 % (16.0-70.0); PLATELET COUNT 230 TH/MM3 (150-450); RED BLOOD COUNT 4.11 MIL/MM3 (4.50-5.90); RED CELL DISTRIBUTION WIDTH 13.3 % (11.6-17.2)
[2016-10-29 05:30] LABS: HEMO FLAGS AUTO DIFF
[2016-10-29 05:39] LABS: BICARBONATE 27.2 MEQ/L (21.0-32.0); POTASSIUM 3.6 MEQ/L (3.5-5.1)
[2016-10-29 06:39] LABS: NEUTROPHIL # MANUAL DIFF 27.3 TH/MM3 (1.8-7.7); POLYS (SEG NEUTROPHILS) 88 % (16-70); WBC DIFF SAMPLE 100
[2016-10-29 06:40] LABS: PLATELET ESTIMATE SMEAR NORMAL (NORMAL); PLATELET MORPHOLOGY NORMAL (NORMAL); SCAN/DIFF FINAL DIFF MANUAL
[2016-10-29] MEDS: CHLORHEXIDINE 0.12% (ORAL KIT) 15 ML CUP MT SCH ×2 (08:00→20:00)
[2016-10-29] MEDS: PANTOPRAZOLE SODIUM 40 MG VIAL IV SCH (08:49)
[2016-10-29] MEDS: FOLIC ACID 1 MG TAB PO SCH (08:49)
[2016-10-29] MEDS: ASPIRIN 81 MG CHEW TAB CHEW SCH (08:49)
[2016-10-29] MEDS: DILTIAZEM HCL 60 MG TAB PO SCH ×4 (08:49→20:38)
[2016-10-29] MEDS: THIAMINE HCL 100 MG TAB PO SCH (08:49)
[2016-10-29] MEDS: SENNOSIDES SYRUP 8.8 MG/5 ML CUP PO SCH (08:49)
[2016-10-29] MEDS: DOCUSATE SODIUM 100 MG/10 ML UDC PO SCH ×2 (08:49→20:39)
[2016-10-29] MEDS: SODIUM CHLORIDE 0.9% FLUSH 5 ML FLUSH IV FLUSH PRN (08:50)
[2016-10-29] MEDS: SODIUM CHLORIDE 0.9% FLUSH 5 ML FLUSH IV FLUSH SCH ×2 (08:50→20:38)
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
[2016-10-29] MEDS ORDERED: GADODIAMIDE PF 287 MG/ML 20 ML VIAL (for RAD MRI) IV ONE (14:52)
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
[2016-10-29] MEDS: GENTAMICIN INJ 275 MG in SODIUM CHLORIDE 0.9% INJ 100 ML IV SCH (20:38)
[2016-10-30] VITALS (14 sets, daily range): BP systolic 108–138; BP diastolic 71–92; PULSE 98–109; RESP 22–32; TEMP 98–101.5; O2SAT 96–100
[2016-10-30] MEDS: LORazepam 2 MG/ML VIAL IV PUSH PRN ×3 (01:00→18:30)
[2016-10-30] MEDS: PENICILLIN G SODIUM INJ 4,000,000 UNITS in SODIUM CHLORIDE 0.9% INJ 100 ML IV SCH ×6 (01:01→21:34)
[2016-10-30] MEDS: INSULIN NovoLIN REGULAR SUPPLEMENTAL SCALE SQ SCH ×4 (02:59→21:34)
[2016-10-30] MEDS: HEPARIN SODIUM - SQ 10,000 UNITS/ML VIAL SQ SCH ×2 (03:00→15:34)
[2016-10-30] MEDS: CHLORHEXIDINE GLUCONATE 2 % 1 PACK (2 CLOTHS) TOP SCH (03:00)
[2016-10-30 04:40] LABS: BASOPHIL # 0.1 TH/MM3 (0-0.2); BASOPHIL % 0.4 % (0.0-2.0); EOSINOPHIL % 0.1 % (0.0-4.0); HEMATOCRIT 36.9 % (39.0-51.0); HEMO FLAGS DIFF FINAL; LYMPH % 8.7 % (9.0-44.0); LYMPHOCYTE # 2.3 TH/MM3 (1.0-4.8); MEAN CELL VOLUME 97.4 FL (80.0-100.0); MEAN CORPUSCULAR HEMOGLOBIN 32.1 PG (27.0-34.0); MEAN CORPUSCULAR HGB CONC 32.9 % (32.0-36.0); MONO % 5.3 % (0.0-8.0); NEUT % 85.5 % (16.0-70.0); PLATELET COUNT 250 TH/MM3 (150-450); RED BLOOD COUNT 3.79 MIL/MM3 (4.50-5.90); RED CELL DISTRIBUTION WIDTH 13.2 % (11.6-17.2); WHITE BLOOD COUNT 26.9 TH/MM3 (4.0-11.0)
[2016-10-30 05:04] LABS: BICARBONATE 26.4 MEQ/L (21.0-32.0); POTASSIUM 3.4 MEQ/L (3.5-5.1)
[2016-10-30] MEDS: POTASSIUM CHLOR 20 MEQ PREMIX 100 ML IV PRN ×2 (06:11→08:13)
[2016-10-30] MEDS: CHLORHEXIDINE 0.12% (ORAL KIT) 15 ML CUP MT SCH ×2 (08:00→20:00)
[2016-10-30] MEDS: FOLIC ACID 1 MG TAB PO SCH (08:13)
[2016-10-30] MEDS: ACETAMINOPHEN 650 MG/20.3 ML UDC PO PRN (08:13)
[2016-10-30] MEDS: ASPIRIN 81 MG CHEW TAB CHEW SCH (08:13)
[2016-10-30] MEDS: SENNOSIDES SYRUP 8.8 MG/5 ML CUP PO SCH (08:13)
[2016-10-30] MEDS: DOCUSATE SODIUM 100 MG/10 ML UDC PO SCH (08:13)
[2016-10-30] MEDS: THIAMINE HCL 100 MG TAB PO SCH (08:14)
[2016-10-30] MEDS: DILTIAZEM HCL 60 MG TAB PO SCH ×4 (08:14→21:33)
[2016-10-30] MEDS: SODIUM CHLORIDE 0.9% FLUSH 5 ML FLUSH IV FLUSH SCH ×2 (08:15→21:34)
[2016-10-30] MEDS: SODIUM CHLORIDE 0.9% FLUSH 5 ML FLUSH IV FLUSH PRN (08:15)
[2016-10-30] MEDS: PANTOPRAZOLE SODIUM 40 MG VIAL IV SCH (08:24)
[2016-10-30] MEDS: RESP: ALBUTEROL 2.5 MG/IPRATROPIUM 0.5 MG NEB (PRN) NEB (08:37)
--- NOTE | 2016-10-30 12:16 | HHI.CCPN ---
Subjective Remarks/Hospital Course 51-year-old male with history of chronic substance use and alcohol use, was recently seen in the ER apparently for UTI earlier this a.m.,CT scanshowing possible pyelonephritis, with perinephric edema and subsequently discharged. This subsequent presentation to the ED today brought in by EMS, because he was found in the [place] by bystanders, disoriented,unknown LOC. According to EMS, they believe that he may have used some crack cocaine. No history was obtainable in the ED, laboratory and imaging studies were performed. The patient was noted to have leukocytosis, with a WBC count of 31, with an initial lactate of 7.3 .CT of the head showed no acute abnormality .Upon my entering the ED to examine the patient, supine in 4 point restraints,combative, not responding, but awake. He is diaphoretic and tachycardic , HR 115-120's. Critical care medicine was consulted for treatment and management. Subjective 10/20 Afebrile. Last evening, the patient was noted to be moving all 4 extremities, requiring 4. restraints in addition of the Precedex infusion. Noncommunicative, combative and motor strength 5/5. Approximately 2:30 AM, the patient was noted to be nonresponsive off sedation, left hemiplegia, with no gag reflex. The patient was emergently intubated for airway protection. ABGs were within normal limits. Repeat CT at 4 AM was unremarkable. MRI obtained today, noted mild restricted diffusion right basal ganglia characteristic of subacute infarction. One dose of aspirin was given, neurology was consulted appreciate recommendations. Carotid Doppler studies, echo pending. 10/24 Patient is sedated with Fentanyl and intubated. Afebrile.Tolerating tube feeds, 10/25 No acute events overnight. Sedated with Fentanyl and intubated. Afebrile. 10/26: Receiving only Fentanyl for sedation. Awake, follows commands on RUE and RLE. Flaccid on Left 10/27 Patient was extubated yesterday on 3L oxygen with good sats. Afebrile. WBC increased 29 today from 21. 10/28 No acute events overnight. On room air oxygen when seen. 10/29 Patient is lying in bed in NAD. Afebrile. 10/30: Fever 101.5, white count is trending down, 26.9 today. Chest x-ray is pending. Had episode of wheezing and respiratory distress, responded well to DuoNeb Objective Vital Signs Date Time Temp Pulse Resp B/P Pulse Ox O2 Delivery O2 Flow Rate FiO2 10/30/16 10:00 107 10/30/16 08:38 96 Nasal Cannula 10/30/16 08:00 101.5 26 138/92 10/29/16 20:45 21 10/29/16 08:03 3.00 Intake and Output 10/29/16 10/29/16 10/30/16 08:00 16:00 00:00 Intake Total 500 ml 558 ml 830 ml Output Total 650 ml 425 ml 875 ml Balance -150 ml 133 ml -45 ml Result Diagram: 10/30/16 0400 10/30/16 0400 Other Results Microbiology Date/Time Procedure Status Source Growth 10/28/16 08:35 Urine Culture - Final Complete Urine Catheterized Urine NO GROWTH IN 48 HOURS. Imaging Last Impressions Chest X-Ray 10/28/16 0000 Signed Impressions: Service Date/Time: Friday, October 28, 2016 08:00 - CONCLUSION: 1. Bibasilar discoid atelectasis. Gatito Abbott MD Chest CT 10/28/16 0000 Signed Impressions: Service Date/Time: Friday, October 28, 2016 16:51 - CONCLUSION: 1. Bibasilar consolidation. I'm concerned these could relate to infectious infiltrates. Atelectasis is felt less likely. Alex Bass Jr., MD Abdomen/Pelvis CT 10/28/16 0000 Signed Impressions: Service Date/Time: Friday, October 28, 2016 16:51 - CONCLUSION: 1. Nonobstructing bilateral renal calculi. 2. Stable bilateral adrenal nodules. 3. Previous mesh placement. No residual hernias. 4. Diverticulosis without diverticulitis. 5. Slight inflammatory changes adjacent to the right kidney, nonspecific. 6. No abscess. Gatito Abbott MD Liver Ultrasound 10/25/16 0000 Signed Impressions: Service Date/Time: Tuesday, October 25, 2016 19:05 - CONCLUSION: 1. Fatty liver enlarged to 20 cm in length. Multiple gallstones with trace fluid around gallbladder wall which is mildly thickened at 4 mm. No biliary ductal dilatation. Clifton Watson MD Lumbar Puncture Fluoroscopy 10/21/16 0000 Signed Impressions: Service Date/Time: Friday, October 21, 2016 15:20 - CONCLUSION: Uncomplicated fluoroscopically guided lumbar puncture with pressures as above. 12 cc of pus was collected and sent to the lab. Dr. Reid was notified. Melvin Nielsen MD Head CT 10/20/16 Signed Impressions: Service Date/Time: Thursday, October 20, 2016 03:40 - CONCLUSION: 1. No evidence of acute intracranial pathology. No masses are identified. Old right basal ganglia infarct John Hobson MD Carotid Artery Ultrasound 10/20/16 Signed Impressions: Service Date/Time: Thursday, October 20, 2016 14:35 - CONCLUSION: Unremarkable exam with no evidence of stenosis. Micha Wallace MD Brain MRI 10/20/16 Signed Impressions: Service Date/Time: Thursday, October 20, 2016 09:50 - CONCLUSION: 1. Focal area of mild restricted diffusion in the right basal ganglia with increased signal on the flair and T2-weighted sequence characteristic of an area of subacute infarction. 2. Mild atrophy and chronic small vessel ischemic change. 3. No acute hemorrhage or mass effect. Micha Wallace MD Abdomen X-Ray 10/20/16 Signed Impressions: Service Date/Time: Thursday, October 20, 2016 12:03 - CONCLUSION: Nonspecific bowel gas. Maximiliano Nielsen MD FACR Objective Remarks GENERAL: 51 yo ill-appearing male lying in bed. SKIN: Warm and dry. HEAD: Atraumatic. Normocephalic. EYES: Pupils equal and round, 2 mm. No scleral icterus, or nystagmus. No injection or drainage. ENT: No nasal bleeding or discharge. Mucous membranes pink and moist. NECK: Trachea midline. No JVD. CARDIOVASCULAR: Regular rate, and regular rhythm. RESPIRATORY: Breath sounds equal bilaterally. GASTROINTESTINAL: Abdomen soft, non-tender, nondistended. No guarding. Well- healed midline abdominal scar MUSCULOSKELETAL: No obvious deformities. NEUROLOGICAL: Pt wakes up following commands right upper and lower extremity, hemiparetic on the left side. (Received Ativan for agitation) Date of Insertion: Oct 19, 2016 Date of Insertion: Oct 20, 2016 Line: Central Venous Catheter Side: Left Location: Subclavian A/P Assessment and Plan Plan by systems: Neurologic: Toxic metabolic encephalopathy Alcohol/substance use disorder Right Subacute basal ganglia infarct, with L hemiplegia Meningitis -Monitor neuro status and avoid sedatives -Repeat MRI brain w and wo contrast r/o Cerebritis-nop acute changes from previous -CT 10/19no acute pathology, 10/20- Old right basal ganglia infarct -MRI 10/20-right basal ganglia subacute infarction -ASA 325mg /daily -10/19 Expanded urine tox screen- positive for amphetamines, cannabinoids, opiates -Neurology following- Dr. Macias -Monitor for alcohol withdrawal-Ativan 2 mg every 4 hours when necessary-change to 1 mg IV q4 on 10/30/16 -Monitor for seizure activity -Lumbar puncture 10/2174-[id number]-[id number] cocci on gram stain, no growth final culture. LP fluid studies consistent with bacterial meningitis -10/20 EEG-severe encephalopathy -Thiamine and folate daily Respiratory: Respiratory insufficiency -Continue with oxygen keep sat >92% -Bronchodilators DuoNeb every 6 hours scheduled and when necessary -Maintain head of bed 30 -Aspiration precautions CV: -On Cardizem 60mg QID-Monitor HR and BP keep MAP>65mmHg - ROSIBEL 10/22 endocarditis, aortic vegetations, EF 55% - Cardiology following , Dr. Ritter Renal: Dehydration-resolved Renal insufficiency Hypernatremia -Monitor renal function, I/O's, electrolytes replacement per protocol GI: Elevated LFT's. ..trending down -On Puree diet with thin liquids per speech. -US Liver: Fatty liver,. Multiple gallstones with trace fluid around gallbladder wall which is mildly thickened at 4 mm. No biliary ductal dilatation. -Protonix GI prophylaxis -Bowel regimen senna, Colace Heme/ID: Leukocytosis Sepsis Meningitis-possible strep pneumo Recurrent fever -ID following- -Continue Penicillin G , Gentamicin for synergy (for Strep pneumo endocarditis) Monitor for signs of infections ( Fever, WBC).Afebrile. -Follow up on blood and urine cxs 10/28 -10/28 CT chest: Bibasilar consolidation -10/28: CT Abdomen/pelvis: Nonobstructing bilateral renal calculi. 2. Stable bilateral adrenal nodules. Previous mesh placement. No residual hernias. Diverticulosis without diverticulitis. Slight inflammatory changes adjacent to the right kidney. No abscess s/p Decadron 10mg Q6 completed 10/25/17 CTS consult (strep endocarditis AV and left side stroke embolic - Patient is not a surgical candidate at this time per -10/21 CSF: GPC on gram stain -10/19 Blood cultures-strep pneumo -10/19 Urine cultures-strep pneumo -Lumbar puncture-noted 50 cc of purulent drainage, gram-positive cocci Endocrine: Diabetes mellitus -SSI medium scale with accuchecks Q6 -hemoglobin A1C 7.1 MSK: -PT evaluate and treat. OOB to stretcher chair Prophylaxis: GI Prophylaxis Protonix DVT Prophylaxis -- SCDs Heparin SQ BID Lines: Central line RSC (10/20)-DC today after establishing sufficient PIV Level 3 Katerin Conner MD Oct 30, 2016 12:16
--- NOTE | 2016-10-30 12:45 | RADRPT ---
EXAM DATE/TIME: 10/30/2016 11:48 [facility] COMPARISON: CT THORAX W CONTRAST, October 28, 2016, 16:51. CHEST SINGLE AP, October 28, 2016, 8:00. INDICATIONS : Short of breath. MEDICAL HISTORY : None. SURGICAL HISTORY : None. ENCOUNTER: Subsequent ACUITY: 2 weeks PAIN SCORE: Non-responsive. LOCATION: Bilateral chest FINDINGS: Underinflated AP view of the chest demonstrates a normal-sized cardiac silhouette. Right subclavian c entral line tip is in the SVC. There is bibasilar airspace opacity that is stable. No definite effusi on or pneumothorax is seen. Bones and soft tissues demonstrate no acute finding. CONCLUSION: Underinflated examination with stable bibasilar airspace opacity representing either atelectasis or c onsolidation. The appearance favors atelectasis. Ubaldo Alanis MD on October 30, 2016 at 12:42 Board Certified Radiologist. This report was verified electronically.
[2016-10-30] MEDS: RESP: ALBUTEROL 2.5 MG/IPRATROPIUM 0.5 MG NEB (SCH) NEB ×2 (15:19→19:44)
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
[2016-10-30] MEDS: GENTAMICIN INJ 275 MG in SODIUM CHLORIDE 0.9% INJ 100 ML IV SCH (21:32)
[2016-10-30] MEDS: DOCUSATE SODIUM 100 MG CAP PO SCH (21:33)
[2016-10-31] VITALS (15 sets, daily range): BP systolic 117–142; BP diastolic 69–84; PULSE 91–109; RESP 14–35; TEMP 97.8–101.7; O2SAT 92–100
[2016-10-31] MEDS: PENICILLIN G SODIUM INJ 4,000,000 UNITS in SODIUM CHLORIDE 0.9% INJ 100 ML IV SCH ×6 (01:28→21:35)
[2016-10-31] MEDS: RESP: ALBUTEROL 2.5 MG/IPRATROPIUM 0.5 MG NEB (SCH) NEB ×4 (03:40→21:08)
[2016-10-31] MEDS: CHLORHEXIDINE GLUCONATE 2 % 1 PACK (2 CLOTHS) TOP SCH (04:00)
[2016-10-31] MEDS: INSULIN NovoLIN REGULAR SUPPLEMENTAL SCALE SQ SCH ×4 (04:06→21:35)
[2016-10-31] MEDS: HEPARIN SODIUM - SQ 10,000 UNITS/ML VIAL SQ SCH ×2 (04:06→15:57)
[2016-10-31] MEDS: CHLORHEXIDINE 0.12% (ORAL KIT) 15 ML CUP MT SCH ×2 (08:00→20:00)
[2016-10-31] MEDS: FOLIC ACID 1 MG TAB PO SCH (09:00)
[2016-10-31] MEDS: ASPIRIN 81 MG CHEW TAB CHEW SCH (09:25)
[2016-10-31] MEDS: SENNOSIDES 8.6 MG TAB PO SCH (09:25)
[2016-10-31] MEDS: SODIUM CHLORIDE 0.9% FLUSH 5 ML FLUSH IV FLUSH SCH ×2 (09:25→21:00)
[2016-10-31] MEDS: DILTIAZEM HCL 60 MG TAB PO SCH ×4 (09:25→21:35)
[2016-10-31] MEDS: THIAMINE HCL 100 MG TAB PO SCH (09:25)
[2016-10-31] MEDS: DOCUSATE SODIUM 100 MG CAP PO SCH ×2 (09:26→21:35)
[2016-10-31] MEDS: PANTOPRAZOLE SODIUM 40 MG VIAL IV SCH (09:26)
--- NOTE | 2016-10-31 12:36 | PD.TRANSFR ---
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 This subsequent presentation to the ED today brought in by EMS, because he was found in the [place] by bystanders, disoriented,unknown LOC. According to EMS, they believe that he may have used some crack cocaine. No history was obtainable in the ED, laboratory and imaging studies were performed. The patient was noted to have leukocytosis, with a WBC count of 31, with an initial lactate of 7.3 .CT of the head showed no acute abnormality .Patient initially was, supine in 4 point restraints,combative, not responding, but awake. He is diaphoretic and tachycardic , HR 115-120's. Critical care medicine was consulted for treatment and management. Subjective 10/20 Afebrile. Last evening, the patient was noted to be moving all 4 extremities, requiring 4. restraints in addition of the Precedex infusion. Noncommunicative, combative and motor strength 5/5. Approximately 2:30 AM, the patient was noted to be nonresponsive off sedation, left hemiplegia, with no gag reflex. The patient was emergently intubated for airway protection. ABGs were within normal limits. Repeat CT at 4 AM was unremarkable. MRI obtained today, noted mild restricted diffusion right basal ganglia characteristic of subacute infarction. One dose of aspirin was given, neurology was consulted appreciate recommendations. Carotid Doppler studies, echo pending. 10/21 Underwent LP by IR, 15 ml pus-studies consistent with bacterial meningitis. Meningitis treatment per ID instituted 10/24 Patient is sedated with Fentanyl and intubated. Afebrile.Tolerating tube feeds, 10/25 No acute events overnight. Sedated with Fentanyl and intubated. Afebrile. 10/26: Receiving only Fentanyl for sedation. Awake, follows commands on RUE and RLE. Flaccid on Left 10/27 Patient was extubated yesterday on 3L oxygen with good sats. Afebrile. WBC increased 29 today from 21. 10/28 No acute events overnight. On room air oxygen when seen. 10/29 Patient is lying in bed in NAD. Afebrile. 10/30: Fever 101.5, white count is trending down, 26.9 today. Chest x-ray is pending. Had episode of wheezing and respiratory distress, responded well to DuoNeb 10/31: Tmax 100.4. Fever trending down. Breathing comfortably. Lab work is pending at this time. Patient is more conversant today Objective Vital Signs Date Time Temp Pulse Resp B/P Pulse Ox O2 Delivery O2 Flow Rate FiO2 10/31/16 10:18 97 Nasal Cannula 2.00 10/31/16 10:00 104 10/31/16 08:00 99.8 24 142/83 10/29/16 20:45 21 Intake and Output 10/30/16 10/30/16 10/31/16 08:00 16:00 00:00 Intake Total 546 ml 710 ml 528 ml Output Total 750 ml 475 ml 1050 ml Balance -204 ml 235 ml -522 ml Result Diagram: 10/30/16 0400 10/30/16 0400 Imaging Last Impressions Chest X-Ray 10/28/16 0000 Signed Impressions: Service Date/Time: Friday, October 28, 2016 08:00 - CONCLUSION: 1. Bibasilar discoid atelectasis. Gatito Abbott MD Chest CT 10/28/16 0000 Signed Impressions: Service Date/Time: Friday, October 28, 2016 16:51 - CONCLUSION: 1. Bibasilar consolidation. I'm concerned these could relate to infectious infiltrates. Atelectasis is felt less likely. Alex Bass Jr., MD Abdomen/Pelvis CT 10/28/16 0000 Signed Impressions: Service Date/Time: Friday, October 28, 2016 16:51 - CONCLUSION: 1. Nonobstructing bilateral renal calculi. 2. Stable bilateral adrenal nodules. 3. Previous mesh placement. No residual hernias. 4. Diverticulosis without diverticulitis. 5. Slight inflammatory changes adjacent to the right kidney, nonspecific. 6. No abscess. Gatito Abbott MD Liver Ultrasound 10/25/16 0000 Signed Impressions: Service Date/Time: Tuesday, October 25, 2016 19:05 - CONCLUSION: 1. Fatty liver enlarged to 20 cm in length. Multiple gallstones with trace fluid around gallbladder wall which is mildly thickened at 4 mm. No biliary ductal dilatation. Clifton Watson MD Lumbar Puncture Fluoroscopy 10/21/16 0000 Signed Impressions: Service Date/Time: Friday, October 21, 2016 15:20 - CONCLUSION: Uncomplicated fluoroscopically guided lumbar puncture with pressures as above. 12 cc of pus was collected and sent to the lab. Dr. Reid was notified. Melvin Nielsen MD Head CT 10/20/16 0000 Signed Impressions: Service Date/Time: Thursday, October 20, 2016 03:40 - CONCLUSION: 1. No evidence of acute intracranial pathology. No masses are identified. 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 Micha Wallace MD Brain MRI 10/20/16 0000 Signed Impressions: Service Date/Time: Thursday, October 20, 2016 09:50 - CONCLUSION: 1. Focal area of mild restricted diffusion in the right basal ganglia with increased signal on the flair and T2-weighted sequence characteristic of an area of subacute infarction. 2. Mild atrophy and chronic small vessel ischemic change. 3. No acute hemorrhage or mass effect. Micha Wallace MD Abdomen X-Ray 10/20/16 0000 Signed Impressions: Service Date/Time: Thursday, October 20, 2016 12:03 - CONCLUSION: Nonspecific bowel gas. Maximiliano Nielsen MD FACR Objective Remarks GENERAL: 51 yo ill-appearing male lying in bed. Left hemiplegia SKIN: Warm and dry. HEAD: Atraumatic. Normocephalic. EYES: Pupils equal and round, 2 mm. No scleral icterus, or nystagmus. No injection or drainage. ENT: No nasal bleeding or discharge. Mucous membranes pink and moist. NECK: Trachea midline. No JVD. CARDIOVASCULAR: Regular rate, and regular rhythm. RESPIRATORY: Breath sounds equal bilaterally. No wheezes or crackles today GASTROINTESTINAL: Abdomen soft, non-tender, nondistended. No guarding. Well- healed midline abdominal scar MUSCULOSKELETAL: No obvious deformities. NEUROLOGICAL: Pt wakes up following commands right upper and lower extremity, hemiplegic on the left side. Date of Insertion: Oct 19, 2016 Date of Insertion: Oct 20, 2016 Line: Central Venous Catheter Side: Left Location: Subclavian A/P Assessment and Plan Plan by systems: Neurologic: Toxic metabolic encephalopathy Right Subacute basal ganglia infarct, with L hemiplegia Bacteria Meningitis Alcohol/substance use disorder -Monitor neuro status and minimize sedatives -Repeat MRI brain w and wo contrast r/o Cerebritis-no acute changes from previous -CT 10/19no acute pathology, 10/20- Old right basal ganglia infarct -MRI 10/20-right basal ganglia subacute infarction -ASA 325mg /daily -10/19 Expanded urine tox screen- positive for amphetamines, cannabinoids, opiates -Neurology following- Dr. Macias -Monitor for alcohol withdrawal-Ativan 2 mg every 4 hours when necessary-change to 1 mg IV q4 on 10/30/16 -Monitor for seizure activity -Lumbar puncture [id number] cocci on gram stain, no growth final culture. LP fluid studies consistent with bacterial meningitis -10/20 EEG-severe encephalopathy -Thiamine and folate daily Respiratory: Respiratory insufficiency -Continue with oxygen keep sat >92% -Bronchodilators DuoNeb every 6 hours scheduled and when necessary -Maintain head of bed 30 -Aspiration precautions CV: -On Cardizem 60mg QID-Monitor HR and BP keep MAP>65mmHg - ROSIBEL 10/22 endocarditis, aortic vegetations, EF 55% - Cardiology Dr. Ritter Renal: Dehydration-resolved Renal insufficiency Hypernatremia -Monitor renal function, I/O's, electrolytes replacement per protocol GI: Elevated LFT's. ..trending down -On Puree diet with thin liquids per speech. -US Liver: Fatty liver,. Multiple gallstones with trace fluid around gallbladder wall which is mildly thickened at 4 mm. No biliary ductal dilatation. -Protonix GI prophylaxis -Bowel regimen senna, Colace Heme/ID: Leukocytosis Sepsis Meningitis-possible strep pneumo Recurrent fever-improving -ID following- -Continue Penicillin G , Gentamicin for synergy (for Strep pneumo endocarditis) Monitor for signs of infections ( Fever, WBC).Afebrile. -Follow up on central line tip culture 10/30/16 -10/28 CT chest: Bibasilar consolidation -10/28: CT Abdomen/pelvis: Nonobstructing bilateral renal calculi. 2. Stable bilateral adrenal nodules. Previous mesh placement. No residual hernias. Diverticulosis without diverticulitis. Slight inflammatory changes adjacent to the right kidney. No abscess s/p Decadron 10mg Q6 completed 10/25/17 CTS consult (strep endocarditis AV and left side stroke embolic - Patient is not a surgical candidate at this time per -10/21 CSF: GPC on gram stain -10/19 Blood cultures-strep pneumo -10/19 Urine cultures-strep pneumo -Lumbar puncture-noted 50 cc of purulent drainage, gram-positive cocci Endocrine: Diabetes mellitus -SSI medium scale with accuchecks Q6 -hemoglobin A1C 7.1 MSK: -PT evaluate and treat. OOB to stretcher chair Prophylaxis: GI Prophylaxis Protonix DVT Prophylaxis -- SCDs Heparin SQ BID Lines: Central line RSC (10/20)-DCd 10/30 Level 2 Hospitalist consulted to assume care AM 11/01/16 Katerin Conner MD Oct 31, 2016 12:36
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
--- NOTE | 2016-10-31 13:17 | RADRPT ---
EXAM DATE/TIME: 10/31/2016 12:37 [facility] COMPARISON: CHEST SINGLE AP, October 30, 2016, 11:48. INDICATIONS : Respiratory Disease. MEDICAL HISTORY : Sepsis. SURGICAL HISTORY : Unobtainable. ENCOUNTER: Initial ACUITY: 2 weeks PAIN SCORE: 0/10 LOCATION: chest FINDINGS: A single portable frontal view of the chest shows the patient obliqued towards the right. Breathing m otion artifact degrades the exam. Bibasilar atelectasis noted. No discrete infiltrate or effusion. He art is normal in size. CONCLUSION: Limited study. Bibasilar atelectasis. Alex Bass Jr., MD on October 31, 2016 at 13:14 Board Certified Radiologist. This report was verified electronically.
[2016-10-31 13:54] LABS: AUTOMATED NEUTROPHIL # 16.7 TH/MM3 (1.8-7.7); BASOPHIL # 0.1 TH/MM3 (0-0.2); BASOPHIL % 0.3 % (0.0-2.0); EOSINOPHIL % 0.1 % (0.0-4.0); HEMATOCRIT 37.1 % (39.0-51.0); HEMO FLAGS DIFF FINAL; LYMPH % 10.2 % (9.0-44.0); MEAN CELL VOLUME 98.2 FL (80.0-100.0); MEAN CORPUSCULAR HEMOGLOBIN 32.1 PG (27.0-34.0); MEAN CORPUSCULAR HGB CONC 32.7 % (32.0-36.0); NEUT % 84.4 % (16.0-70.0); PLATELET COUNT 316 TH/MM3 (150-450); RED BLOOD COUNT 3.77 MIL/MM3 (4.50-5.90); RED CELL DISTRIBUTION WIDTH 13.2 % (11.6-17.2); WHITE BLOOD COUNT 19.8 TH/MM3 (4.0-11.0)
[2016-10-31] MEDS ORDERED: [UNRECOGNIZED DRUG - REMARK] XX ONE (19:30)
[2016-10-31] MEDS: GENTAMICIN INJ 275 MG in SODIUM CHLORIDE 0.9% INJ 100 ML IV SCH (21:34)
[2016-10-31] MEDS: ACETAMINOPHEN 325 MG TAB PO PRN (21:36)
[2016-11-01] VITALS (14 sets, daily range): BP systolic 113–142; BP diastolic 70–85; PULSE 80–105; RESP 20–32; TEMP 98.9–100.9; O2SAT 93–97
[2016-11-01] MEDS: PENICILLIN G SODIUM INJ 4,000,000 UNITS in SODIUM CHLORIDE 0.9% INJ 100 ML IV SCH ×6 (01:45→21:15)
[2016-11-01] MEDS: LORazepam 2 MG/ML VIAL IV PUSH PRN ×3 (01:46→17:25)
[2016-11-01] MEDS: RESP: ALBUTEROL 2.5 MG/IPRATROPIUM 0.5 MG NEB (SCH) NEB ×4 (03:14→20:46)
[2016-11-01] MEDS: CHLORHEXIDINE GLUCONATE 2 % 1 PACK (2 CLOTHS) TOP SCH (04:00)
[2016-11-01] MEDS: HEPARIN SODIUM - SQ 10,000 UNITS/ML VIAL SQ SCH ×2 (04:02→17:25)
[2016-11-01] MEDS: INSULIN NovoLIN REGULAR SUPPLEMENTAL SCALE SQ SCH ×4 (04:02→21:14)
[2016-11-01 05:14] LABS: AUTOMATED NEUTROPHIL # 16.1 TH/MM3 (1.8-7.7); BASOPHIL # 0.1 TH/MM3 (0-0.2); BASOPHIL % 0.5 % (0.0-2.0); EOSINOPHIL # 0.1 TH/MM3 (0-0.4); EOSINOPHIL % 0.3 % (0.0-4.0); HEMATOCRIT 33.2 % (39.0-51.0); HEMO FLAGS DIFF FINAL; LYMPH % 10.1 % (9.0-44.0); LYMPHOCYTE # 1.9 TH/MM3 (1.0-4.8); MEAN CELL VOLUME 99.4 FL (80.0-100.0); MEAN CORPUSCULAR HEMOGLOBIN 35.7 PG (27.0-34.0); MEAN CORPUSCULAR HGB CONC 35.9 % (32.0-36.0); NEUT % 84.1 % (16.0-70.0); PLATELET COUNT 451 TH/MM3 (150-450); RED BLOOD COUNT 3.34 MIL/MM3 (4.50-5.90); RED CELL DISTRIBUTION WIDTH 13.5 % (11.6-17.2); WHITE BLOOD COUNT 19.1 TH/MM3 (4.0-11.0)
[2016-11-01 05:28] LABS: ALKALINE PHOSPHATASE 124 U/L (45-117); ALT (GPT) 67 U/L (12-78); ANION GAP 9 MEQ/L (5-15); AST (GOT) 34 U/L (15-37); BLOOD UREA NITROGEN 20 MG/DL (7-18); CHLORIDE 107 MEQ/L (98-107); GLOMERULAR FILTRATION RATE 96 ML/MIN (>89); MAGNESIUM 2.1 MG/DL (1.5-2.5); POTASSIUM 3.8 MEQ/L (3.5-5.1); SODIUM (NA) 141 MEQ/L (136-145); TOTAL BILIRUBIN ADULT 0.6 MG/DL (0.2-1.0)
--- NOTE | 2016-11-01 07:48 | HHI.PR ---
Subjective Remarks In bed, he is not agitated, however he is talking without making any sense. He has no complaints. VSS, Objective Vitals Vital Signs Date Time Temp Pulse Resp B/P Pulse Ox O2 Delivery O2 Flow Rate FiO2 11/01/16 06:00 93 11/01/16 04:00 97 11/01/16 04:00 99.7 97 32 142/85 95 11/01/16 02:00 91 11/01/16 00:00 98.9 82 29 117/70 96 11/01/16 00:00 82 10/31/16 22:00 96 10/31/16 21:10 95 21 10/31/16 20:00 108 10/31/16 20:00 101.7 108 35 117/84 95 10/31/16 18:00 100 10/31/16 16:00 100.4 102 18 131/69 94 10/31/16 16:00 102 10/31/16 14:00 109 10/31/16 12:00 97.8 101 14 120/78 95 10/31/16 12:00 101 10/31/16 10:18 97 Nasal Cannula 2.00 10/31/16 10:00 104 10/31/16 08:00 91 10/31/16 08:00 99.8 91 24 142/83 92 10/31/16 08:00 97 I/O 10/31/16 10/31/16 10/31/16 11/01/16 11/01/16 11/01/16 07:00 15:00 23:00 07:00 15:00 23:00 Intake Total 837 ml 331 ml 644 ml 529 ml Output Total 1000 ml 1000 ml 775 ml 875 ml Balance -163 ml -669 ml -131 ml -346 ml Intake Oral 530 ml 360 ml 240 ml IV Total 307 ml 331 ml 284 ml 289 ml Output Urine Total 1000 ml 1000 ml 775 ml 875 ml # Bowel Movements 0 0 0 0 Result Diagram: 11/01/162 11/01/16321 Imaging Last Impressions Chest X-Ray 10/31/16 0000 Signed Impressions: Service Date/Time: Monday, October 31, 2016 12:37 - CONCLUSION: Limited study. Bibasilar atelectasis. Alex Bass Jr., MD Brain MRI 10/29/16 0000 Signed Impressions: Service Date/Time: Saturday, October 29, 2016 14:32 - CONCLUSION: Stable MRI of the brain. Findings consistent with right basal ganglion and thalamic subacute infarct. Chase Henry MD Chest CT 10/28/16 0000 Signed Impressions: Service Date/Time: Friday, October 28, 2016 16:51 - CONCLUSION: 1. Bibasilar consolidation. I'm concerned these could relate to infectious infiltrates. Atelectasis is felt less likely. Alex Bass Jr., MD Abdomen/Pelvis CT 10/28/16 0000 Signed Impressions: Service Date/Time: Friday, October 28, 2016 16:51 - CONCLUSION: 1. Nonobstructing bilateral renal calculi. 2. Stable bilateral adrenal nodules. 3. Previous mesh placement. No residual hernias. 4. Diverticulosis without diverticulitis. 5. Slight inflammatory changes adjacent to the right kidney, nonspecific. 6. No abscess. Gatito Abbott MD Liver Ultrasound 10/25/16 0000 Signed Impressions: Service Date/Time: Tuesday, October 25, 2016 19:05 - CONCLUSION: 1. Fatty liver enlarged to 20 cm in length. Multiple gallstones with trace fluid around gallbladder wall which is mildly thickened at 4 mm. No biliary ductal dilatation. Clifton Watson MD Lumbar Puncture Fluoroscopy 10/21/16 0000 Signed Impressions: Service Date/Time: Friday, October 21, 2016 15:20 - CONCLUSION: Uncomplicated fluoroscopically guided lumbar puncture with pressures as above. 12 cc of pus was collected and sent to the lab. Dr. Reid was notified. Melvin Nielsen MD Head CT 10/20/16 0000 Signed Impressions: Service Date/Time: Thursday, October 20, 2016 03:40 - CONCLUSION: 1. No evidence of acute intracranial pathology. No masses are identified. 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 Micha Wallace MD Abdomen X-Ray 10/20/16 0000 Signed Impressions: Service Date/Time: Thursday, October 20, 2016 12:03 - CONCLUSION: Nonspecific bowel gas. Maximiliano Nielsen MD FACR Objective Remarks GENERAL: 51 yo ill-appearing male lying in bed. Left hemiplegia SKIN: Warm and dry. HEAD: Atraumatic. Normocephalic. EYES: Pupils equal and round, 2 mm. No scleral icterus, or nystagmus. No injection or drainage. ENT: No nasal bleeding or discharge. Mucous membranes pink and moist. NECK: Trachea midline. No JVD. CARDIOVASCULAR: Regular rate, and regular rhythm. RESPIRATORY: Breath sounds equal bilaterally. No wheezes or crackles today GASTROINTESTINAL: Abdomen soft, non-tender, nondistended. No guarding. Well- healed midline abdominal scar MUSCULOSKELETAL: No obvious deformities. NEUROLOGICAL: Pt wakes up following commands right upper and lower extremity, hemiplegic on the left side. 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 Status: Acute (4) Bacterial meningitis ICD Code: G00.9 Status: Acute (5) Left hemiplegia ICD Code: G81.94 Status: Acute (6) Embolic stroke of left basal ganglia ICD Code: I63.40 Status: Acute (7) Alcohol dependence ICD Code: F10.20 Status: Acute (8) Diabetes ICD Code: E11.9 Status: Acute Assessment and Plan 51 yo male with: Toxic metabolic encephalopathy Right Subacute basal ganglia infarct, with L hemiplegia Bacteria Meningitis Alcohol/substance use disorder -Monitor neuro status and minimize sedatives -Repeat MRI brain w and wo contrast r/o Cerebritis-no acute changes from previous -CT 10/19no acute pathology, 10/20- Old right basal ganglia infarct -MRI 10/20-right basal ganglia subacute infarction -ASA 325mg /daily -10/19 Expanded urine tox screen- positive for amphetamines, cannabinoids, opiates -Neurology following- Dr. Macias -Monitor for alcohol withdrawal-Ativan 2 mg every 4 hours when necessary-change to 1 mg IV q4 on 10/30/16 -Monitor for seizure activity -Lumbar puncture 10/2152-[id number] cocci on gram stain, no growth final culture. LP fluid studies consistent with bacterial meningitis -10/20 EEG-severe encephalopathy -Thiamine and folate daily Respiratory insufficiency -Continue with oxygen keep sat >92% -Bronchodilators DuoNeb every 6 hours scheduled and when necessary -Maintain head of bed 30 -Aspiration precautions -On Cardizem 60mg QID-Monitor HR and BP keep MAP>65mmHg - ROSIBEL 10/22 endocarditis, aortic vegetations, EF 55% - Cardiology Dr. Ritter Dehydration-resolved Renal insufficiency Hypernatremia -Monitor renal function, I/O's, electrolytes replacement per protocol Elevated LFT's. ..trending down -On Puree diet with thin liquids per speech. -US Liver: Fatty liver,. Multiple gallstones with trace fluid around gallbladder wall which is mildly thickened at 4 mm. No biliary ductal dilatation. -Protonix GI prophylaxis -Bowel regimen senna, Colace Leukocytosis Sepsis Meningitis-possible strep pneumo Recurrent fever-improving -ID following- -Continue Penicillin G , Gentamicin for synergy (for Strep pneumo endocarditis) Monitor for signs of infections ( Fever, WBC).Afebrile. -Follow up on central line tip culture 10/30/16 -10/28 CT chest: Bibasilar consolidation -10/28: CT Abdomen/pelvis: Nonobstructing bilateral renal calculi. 2. Stable bilateral adrenal nodules. Previous mesh placement. No residual hernias. Diverticulosis without diverticulitis. Slight inflammatory changes adjacent to the right kidney. No abscess s/p Decadron 10mg Q6 completed 10/25/17 CTS consult (strep endocarditis AV and left side stroke embolic - Patient is not a surgical candidate at this time per -10/21 CSF: GPC on gram stain -10/19 Blood cultures-strep pneumo -10/19 Urine cultures-strep pneumo -Lumbar puncture-noted 50 cc of purulent drainage, gram-positive cocci Diabetes mellitus -SSI medium scale with accuchecks Q6 -hemoglobin A1C 7.1 Prophylaxis: GI Prophylaxis Protonix DVT Prophylaxis -- SCDs Heparin SQ BID Appears stable. Will transfer to med surg floor Camila Matthews MD Nov 01, 2016 07:48
[2016-11-01] MEDS: CHLORHEXIDINE 0.12% (ORAL KIT) 15 ML CUP MT SCH ×2 (08:00→20:00)
[2016-11-01] MEDS: SODIUM CHLORIDE 0.9% FLUSH 5 ML FLUSH IV FLUSH SCH ×2 (08:36→21:14)
[2016-11-01] MEDS: FOLIC ACID 1 MG TAB PO SCH (08:37)
[2016-11-01] MEDS: DILTIAZEM HCL 60 MG TAB PO SCH ×4 (08:37→21:14)
[2016-11-01] MEDS: ASPIRIN 81 MG CHEW TAB CHEW SCH (08:37)
[2016-11-01] MEDS: DOCUSATE SODIUM 100 MG CAP PO SCH ×2 (08:37→21:14)
[2016-11-01] MEDS: SENNOSIDES 8.6 MG TAB PO SCH (08:37)
[2016-11-01] MEDS: PANTOPRAZOLE SODIUM 40 MG VIAL IV SCH (08:37)
[2016-11-01] MEDS: THIAMINE HCL 100 MG TAB PO SCH (08:43)
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
[2016-11-01] MEDS: ONDANSETRON HCL 4 MG/2 ML VIAL IV PRN ×2 (10:32→17:25)
[2016-11-01] MEDS ORDERED: [UNRECOGNIZED DRUG - REMARK] XX ONE ×2 (19:30)
[2016-11-01] MEDS: ACETAMINOPHEN 325 MG TAB PO PRN (21:15)
[2016-11-01] MEDS: GENTAMICIN INJ 275 MG in SODIUM CHLORIDE 0.9% INJ 100 ML IV SCH (22:24)
[2016-11-02] VITALS (8 sets, daily range): BP systolic 122–132; BP diastolic 64–88; PULSE 84–101; RESP 18–20; TEMP 97.1–98.2; O2SAT 95–97
[2016-11-02] MEDS: PENICILLIN G SODIUM INJ 4,000,000 UNITS in SODIUM CHLORIDE 0.9% INJ 100 ML IV SCH ×6 (02:51→23:24)
[2016-11-02] MEDS: CHLORHEXIDINE GLUCONATE 2 % 1 PACK (2 CLOTHS) TOP SCH (03:03)
[2016-11-02] MEDS: INSULIN NovoLIN REGULAR SUPPLEMENTAL SCALE SQ SCH ×4 (03:03→23:24)
[2016-11-02] MEDS: HEPARIN SODIUM - SQ 10,000 UNITS/ML VIAL SQ SCH ×2 (03:03→17:33)
[2016-11-02] MEDS: RESP: ALBUTEROL 2.5 MG/IPRATROPIUM 0.5 MG NEB (SCH) NEB ×4 (03:17→21:15)
[2016-11-02 08:39] LABS: AUTOMATED NEUTROPHIL # 13.3 TH/MM3 (1.8-7.7); BASOPHIL % 0.2 % (0.0-2.0); EOSINOPHIL # 0.1 TH/MM3 (0-0.4); EOSINOPHIL % 0.4 % (0.0-4.0); HEMATOCRIT 33.1 % (39.0-51.0); HEMO FLAGS DIFF FINAL; LYMPH % 10.3 % (9.0-44.0); LYMPHOCYTE # 1.6 TH/MM3 (1.0-4.8); MEAN CORPUSCULAR HEMOGLOBIN 32.9 PG (27.0-34.0); MEAN CORPUSCULAR HGB CONC 33.9 % (32.0-36.0); NEUT % 85.1 % (16.0-70.0); PLATELET COUNT 317 TH/MM3 (150-450); RED BLOOD COUNT 3.41 MIL/MM3 (4.50-5.90); RED CELL DISTRIBUTION WIDTH 13.3 % (11.6-17.2); WHITE BLOOD COUNT 15.7 TH/MM3 (4.0-11.0)
[2016-11-02 08:50] LABS: BICARBONATE 27.2 MEQ/L (21.0-32.0); MAGNESIUM 1.8 MG/DL (1.5-2.5); POTASSIUM 3.8 MEQ/L (3.5-5.1)
[2016-11-02] MEDS: SODIUM CHLORIDE 0.9% FLUSH 5 ML FLUSH IV FLUSH SCH ×2 (09:00→21:20)
[2016-11-02] MEDS: SENNOSIDES 8.6 MG TAB PO SCH (10:52)
[2016-11-02] MEDS: DOCUSATE SODIUM 100 MG CAP PO SCH ×2 (10:52→21:21)
[2016-11-02] MEDS: ASPIRIN 81 MG CHEW TAB CHEW SCH (10:52)
[2016-11-02] MEDS: DILTIAZEM HCL 60 MG TAB PO SCH ×4 (10:53→21:21)
[2016-11-02] MEDS: PANTOPRAZOLE SODIUM 40 MG VIAL IV SCH ×2 (10:53→11:21)
[2016-11-02] MEDS: THIAMINE HCL 100 MG TAB PO SCH (10:53)
[2016-11-02] MEDS: FOLIC ACID 1 MG TAB PO SCH (10:53)
--- NOTE | 2016-11-02 13:24 | HHI.PR ---
Subjective Remarks In bed. He is more awake and alert. However noted confused and agitated on/off. Says she is thirsty, no fever or chills. No n/v/d/c. Objective Vitals Vital Signs Date Time Temp Pulse Resp B/P Pulse Ox O2 Delivery O2 Flow Rate FiO2 11/02/16 12:00 97.9 92 20 128/84 97 11/02/16 09:18 96 21 11/02/16 08:00 97.9 97 20 132/88 97 11/02/16 04:00 97.4 96 18 123/88 96 11/02/16 00:00 97.7 84 18 123/79 96 11/01/16 23:00 80 11/01/16 20:46 94 21 11/01/16 20:00 92 11/01/16 20:00 100.9 92 30 129/82 94 11/01/16 18:00 100 11/01/16 16:00 100.3 100 20 124/78 93 11/01/16 16:00 96 11/01/16 14:00 96 I/O 11/01/16 11/01/16 11/01/16 11/02/16 11/02/16 11/02/16 07:00 15:00 23:00 07:00 15:00 23:00 Intake Total 529 ml 289 ml 623 ml 650 ml Output Total 875 ml 1000 ml 1000 ml 400 ml Balance -346 ml -711 ml -377 ml 250 ml Intake Oral 240 ml 240 ml 650 ml IV Total 289 ml 289 ml 383 ml Output Urine Total 875 ml 1000 ml 1000 ml 400 ml # Bowel Movements 0 Result Diagram: 11/02/16 0808 11/02/16 0808 Imaging Last Impressions Chest X-Ray 10/31/16 0000 Signed Impressions: Service Date/Time: Monday, October 31, 2016 12:37 - CONCLUSION: Limited study. Bibasilar atelectasis. Alex Bass Jr., MD Brain MRI 10/29/16 0000 Signed Impressions: Service Date/Time: Saturday, October 29, 2016 14:32 - CONCLUSION: Stable MRI of the brain. Findings consistent with right basal ganglion and thalamic subacute infarct. Chase Henry MD Chest CT 10/28/16 0000 Signed Impressions: Service Date/Time: Friday, October 28, 2016 16:51 - CONCLUSION: 1. Bibasilar consolidation. I'm concerned these could relate to infectious infiltrates. Atelectasis is felt less likely. Alex Bass Jr., MD Abdomen/Pelvis CT 10/28/16 0000 Signed Impressions: Service Date/Time: Friday, October 28, 2016 16:51 - CONCLUSION: 1. Nonobstructing bilateral renal calculi. 2. Stable bilateral adrenal nodules. 3. Previous mesh placement. No residual hernias. 4. Diverticulosis without diverticulitis. 5. Slight inflammatory changes adjacent to the right kidney, nonspecific. 6. No abscess. Gatito Abbott MD Liver Ultrasound 10/25/16 0000 Signed Impressions: Service Date/Time: Tuesday, October 25, 2016 19:05 - CONCLUSION: 1. Fatty liver enlarged to 20 cm in length. Multiple gallstones with trace fluid around gallbladder wall which is mildly thickened at 4 mm. No biliary ductal dilatation. Clifton Watson MD Lumbar Puncture Fluoroscopy 10/21/16 0000 Signed Impressions: Service Date/Time: Friday, October 21, 2016 15:20 - CONCLUSION: Uncomplicated fluoroscopically guided lumbar puncture with pressures as above. 12 cc of pus was collected and sent to the lab. Dr. Reid was notified. Melvin Nielsen MD Head CT 10/20/16 0000 Signed Impressions: Service Date/Time: Thursday, October 20, 2016 03:40 - CONCLUSION: 1. No evidence of acute intracranial pathology. No masses are identified. 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 Micha Wallace MD Abdomen X-Ray 10/20/16 0000 Signed Impressions: Service Date/Time: Thursday, October 20, 2016 12:03 - CONCLUSION: Nonspecific bowel gas. Maximiliano Nielsen MD FACR Objective Remarks GENERAL: 51 yo ill-appearing male lying in bed. Left hemiplegia SKIN: Warm and dry. HEAD: Atraumatic. Normocephalic. EYES: Pupils equal and round, 2 mm. No scleral icterus, or nystagmus. No injection or drainage. ENT: No nasal bleeding or discharge. Mucous membranes pink and moist. NECK: Trachea midline. No JVD. CARDIOVASCULAR: Regular rate, and regular rhythm. RESPIRATORY: Breath sounds equal bilaterally. No wheezes or crackles today GASTROINTESTINAL: Abdomen soft, non-tender, nondistended. No guarding. Well- healed midline abdominal scar MUSCULOSKELETAL: No obvious deformities. NEUROLOGICAL: Pt wakes up following commands right upper and lower extremity, hemiplegic on the left side. 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 Status: Acute (4) Bacterial meningitis ICD Code: G00.9 Status: Acute (5) Left hemiplegia ICD Code: G81.94 Status: Acute (6) Embolic stroke of left basal ganglia ICD Code: I63.40 Status: Acute (7) Alcohol dependence ICD Code: F10.20 Status: Acute (8) Diabetes ICD Code: E11.9 Status: Acute Assessment and Plan 51 yo male with: Toxic metabolic encephalopathy Right Subacute basal ganglia infarct, with L hemiplegia Bacterial Meningitis Alcohol/substance use disorder -Monitor neuro status and minimize sedatives -Repeat MRI brain w and wo contrast r/o Cerebritis-no acute changes from previous -CT 10/19no acute pathology, 10/20- Old right basal ganglia infarct -MRI 10/20-right basal ganglia subacute infarction -ASA 325mg /daily -10/19 Expanded urine tox screen- positive for amphetamines, cannabinoids, opiates -Neurology following- Dr. Macias -Monitor for alcohol withdrawal-Ativan 2 mg every 4 hours when necessary-change to 1 mg IV q4 on 10/30/16 -Monitor for seizure activity -Lumbar puncture 10/2127-[id number] cocci on gram stain, no growth final culture. LP fluid studies consistent with bacterial meningitis -10/20 EEG-severe encephalopathy -Thiamine and folate daily -PT.OT Respiratory insufficiency -Continue with oxygen keep sat >92% -Bronchodilators DuoNeb every 6 hours scheduled and when necessary -Maintain head of bed 30 -Aspiration precautions -On Cardizem 60mg QID-Monitor HR and BP keep MAP>65mmHg - ROSIBEL 10/22 endocarditis, aortic vegetations, EF 55% - Cardiology Dr. Ritter Dehydration-resolved Renal insufficiency Hypernatremia -Monitor renal function, I/O's, electrolytes replacement per protocol Elevated LFT's. ..trending down -On Puree diet with thin liquids per speech. -US Liver: Fatty liver,. Multiple gallstones with trace fluid around gallbladder wall which is mildly thickened at 4 mm. No biliary ductal dilatation. -Protonix GI prophylaxis -Bowel regimen senna, Colace Leukocytosis Sepsis Meningitis-possible strep pneumo Recurrent fever-improving -ID following- -Continue Penicillin G , Gentamicin for synergy (for Strep pneumo endocarditis) Monitor for signs of infections ( Fever, WBC).Afebrile. -Follow up on central line tip culture 10/30/16 -10/28 CT chest: Bibasilar consolidation -10/28: CT Abdomen/pelvis: Nonobstructing bilateral renal calculi. 2. Stable bilateral adrenal nodules. Previous mesh placement. No residual hernias. Diverticulosis without diverticulitis. Slight inflammatory changes adjacent to the right kidney. No abscess s/p Decadron 10mg Q6 completed 10/25/17 CTS consult (strep endocarditis AV and left side stroke embolic - Patient is not a surgical candidate at this time per -10/21 CSF: GPC on gram stain -10/19 Blood cultures-strep pneumo -10/19 Urine cultures-strep pneumo -Lumbar puncture-noted 50 cc of purulent drainage, gram-positive cocci Diabetes mellitus -SSI medium scale with accuchecks Q6 -hemoglobin A1C 7.1 Prophylaxis: GI Prophylaxis Protonix DVT Prophylaxis -- SCDs Heparin SQ BID Appears stable. Camila Matthews MD Nov 02, 2016 13:24
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
[2016-11-02] MEDS: GENTAMICIN INJ 275 MG in SODIUM CHLORIDE 0.9% INJ 100 ML IV SCH (21:21)
[2016-11-02] MEDS: LORazepam 2 MG/ML VIAL IV PUSH PRN (23:37)
[2016-11-03] VITALS (7 sets, daily range): BP systolic 121–160; BP diastolic 69–86; PULSE 88–100; RESP 17–20; TEMP 98–101; O2SAT 95–98
[2016-11-03] MEDS: PENICILLIN G SODIUM INJ 4,000,000 UNITS in SODIUM CHLORIDE 0.9% INJ 100 ML IV SCH ×5 (03:05→16:56)
[2016-11-03] MEDS: INSULIN NovoLIN REGULAR SUPPLEMENTAL SCALE SQ SCH ×4 (03:10→21:07)
[2016-11-03] MEDS: RESP: ALBUTEROL 2.5 MG/IPRATROPIUM 0.5 MG NEB (SCH) NEB ×3 (03:32→15:21)
[2016-11-03] MEDS: CHLORHEXIDINE GLUCONATE 2 % 1 PACK (2 CLOTHS) TOP SCH (04:00)
[2016-11-03] MEDS: HEPARIN SODIUM - SQ 10,000 UNITS/ML VIAL SQ SCH ×2 (06:18→16:55)
[2016-11-03 07:11] LABS: AUTOMATED NEUTROPHIL # 12.9 TH/MM3 (1.8-7.7); BASOPHIL % 0.3 % (0.0-2.0); EOSINOPHIL % 0.3 % (0.0-4.0); HEMATOCRIT 33.7 % (39.0-51.0); HEMO FLAGS DIFF FINAL; LYMPH % 11.3 % (9.0-44.0); LYMPHOCYTE # 1.7 TH/MM3 (1.0-4.8); MEAN CELL VOLUME 95.7 FL (80.0-100.0); MEAN CORPUSCULAR HEMOGLOBIN 32.9 PG (27.0-34.0); MEAN CORPUSCULAR HGB CONC 34.4 % (32.0-36.0); MONO % 4.9 % (0.0-8.0); NEUT % 83.2 % (16.0-70.0); PLATELET COUNT 369 TH/MM3 (150-450); RED BLOOD COUNT 3.52 MIL/MM3 (4.50-5.90); RED CELL DISTRIBUTION WIDTH 13.1 % (11.6-17.2); WHITE BLOOD COUNT 15.5 TH/MM3 (4.0-11.0)
[2016-11-03 07:33] LABS: BICARBONATE 27.4 MEQ/L (21.0-32.0)
[2016-11-03] MEDS: SODIUM CHLORIDE 0.9% FLUSH 5 ML FLUSH IV FLUSH SCH ×2 (09:00→21:08)
[2016-11-03] MEDS: SENNOSIDES 8.6 MG TAB PO SCH (09:00)
[2016-11-03] MEDS: ASPIRIN 81 MG CHEW TAB CHEW SCH (09:17)
[2016-11-03] MEDS: THIAMINE HCL 100 MG TAB PO SCH (09:17)
[2016-11-03] MEDS: DILTIAZEM HCL 60 MG TAB PO SCH ×4 (09:17→21:07)
[2016-11-03] MEDS: DOCUSATE SODIUM 100 MG CAP PO SCH ×2 (09:17→21:07)
[2016-11-03] MEDS: FOLIC ACID 1 MG TAB PO SCH (09:17)
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
--- NOTE | 2016-11-03 14:41 | HHI.PR ---
Subjective Remarks Appears in nad. He is more awake and alert. Denies fever or chills. Can't move his left hand. Follows some commands. No n/v/d/c. Objective Vitals Vital Signs Date Time Temp Pulse Resp B/P Pulse Ox O2 Delivery O2 Flow Rate FiO2 11/03/16 11:52 99.1 99 18 121/69 96 11/03/16 08:38 98.9 88 18 160/86 97 11/03/16 04:38 98.6 98 18 145/70 95 11/03/16 00:26 98.0 100 18 121/70 95 11/02/16 21:19 97 Nasal Cannula 11/02/16 20:31 98.2 101 18 122/64 95 11/02/16 16:00 97.1 94 18 132/82 96 I/O 11/02/16 11/02/16 11/02/16 11/03/16 11/03/16 11/03/16 07:00 15:00 23:00 07:00 15:00 23:00 Intake Total 650 ml 720 ml 240 ml Output Total 400 ml 1200 ml 3400 ml Balance 250 ml -480 ml -3160 ml Intake Oral 650 ml 720 ml 240 ml Output Urine Total 400 ml 1200 ml 3400 ml Result Diagram: 11/03/16 0647 11/03/16 0647 Imaging Last Impressions Chest X-Ray 10/31/16 0000 Signed Impressions: Service Date/Time: Monday, October 31, 2016 12:37 - CONCLUSION: Limited study. Bibasilar atelectasis. Alex Bass Jr., MD Brain MRI 10/29/16 0000 Signed Impressions: Service Date/Time: Saturday, October 29, 2016 14:32 - CONCLUSION: Stable MRI of the brain. Findings consistent with right basal ganglion and thalamic subacute infarct. Chase Henry MD Chest CT 10/28/16 0000 Signed Impressions: Service Date/Time: Friday, October 28, 2016 16:51 - CONCLUSION: 1. Bibasilar consolidation. I'm concerned these could relate to infectious infiltrates. Atelectasis is felt less likely. Alex Bass Jr., MD Abdomen/Pelvis CT 10/28/16 0000 Signed Impressions: Service Date/Time: Friday, October 28, 2016 16:51 - CONCLUSION: 1. Nonobstructing bilateral renal calculi. 2. Stable bilateral adrenal nodules. 3. Previous mesh placement. No residual hernias. 4. Diverticulosis without diverticulitis. 5. Slight inflammatory changes adjacent to the right kidney, nonspecific. 6. No abscess. Gatito Abbott MD Liver Ultrasound 10/25/16 0000 Signed Impressions: Service Date/Time: Tuesday, October 25, 2016 19:05 - CONCLUSION: 1. Fatty liver enlarged to 20 cm in length. Multiple gallstones with trace fluid around gallbladder wall which is mildly thickened at 4 mm. No biliary ductal dilatation. Clifton Watson MD Lumbar Puncture Fluoroscopy 10/21/16 0000 Signed Impressions: Service Date/Time: Friday, October 21, 2016 15:20 - CONCLUSION: Uncomplicated fluoroscopically guided lumbar puncture with pressures as above. 12 cc of pus was collected and sent to the lab. Dr. Reid was notified. Melvin Nielsen MD Head CT 10/20/16 0000 Signed Impressions: Service Date/Time: Thursday, October 20, 2016 03:40 - CONCLUSION: 1. No evidence of acute intracranial pathology. No masses are identified. 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 Micha Wallace MD Abdomen X-Ray 10/20/16 0000 Signed Impressions: Service Date/Time: Thursday, October 20, 2016 12:03 - CONCLUSION: Nonspecific bowel gas. Maximiliano Nielsen MD FACR Objective Remarks GENERAL: 51 yo ill-appearing male lying in bed. Left hemiplegia SKIN: Warm and dry. HEAD: Atraumatic. Normocephalic. EYES: Pupils equal and round, 2 mm. No scleral icterus, or nystagmus. No injection or drainage. ENT: No nasal bleeding or discharge. Mucous membranes pink and moist. NECK: Trachea midline. No JVD. CARDIOVASCULAR: Regular rate, and regular rhythm. RESPIRATORY: Breath sounds equal bilaterally. No wheezes or crackles today GASTROINTESTINAL: Abdomen soft, non-tender, nondistended. No guarding. Well- healed midline abdominal scar MUSCULOSKELETAL: No obvious deformities. NEUROLOGICAL: Pt wakes up following commands right upper and lower extremity, hemiplegic on the left side. 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 Status: Acute (4) Bacterial meningitis ICD Code: G00.9 Status: Acute (5) Left hemiplegia ICD Code: G81.94 Status: Acute (6) Embolic stroke of left basal ganglia ICD Code: I63.40 Status: Acute (7) Alcohol dependence ICD Code: F10.20 Status: Acute (8) Diabetes ICD Code: E11.9 Status: Acute Assessment and Plan 51 yo male with: Toxic metabolic encephalopathy Right Subacute basal ganglia infarct, with L hemiplegia Bacterial Meningitis Alcohol/substance use disorder -Monitor neuro status and minimize sedatives -Repeat MRI brain w and wo contrast r/o Cerebritis-no acute changes from previous -CT 10/19no acute pathology, 10/20- Old right basal ganglia infarct -MRI 10/20-right basal ganglia subacute infarction -ASA 325mg /daily -10/19 Expanded urine tox screen- positive for amphetamines, cannabinoids, opiates -Neurology following- Dr. Macias -Monitor for alcohol withdrawal-Ativan 2 mg every 4 hours when necessary-change to 1 mg IV q4 on 10/30/16 -Monitor for seizure activity -Lumbar puncture 10/2117-[id number] cocci on gram stain, no growth final culture. LP fluid studies consistent with bacterial meningitis -10/20 EEG-severe encephalopathy -Thiamine and folate daily -PT/OT/ST Respiratory insufficiency -Continue with oxygen keep sat >92% -Bronchodilators DuoNeb every 6 hours scheduled and when necessary -Maintain head of bed 30 -Aspiration precautions -On Cardizem 60mg QID-Monitor HR and BP keep MAP>65mmHg - ROSIBEL 10/22 endocarditis, aortic vegetations, EF 55% - Cardiology Dr. Ritter Dehydration-resolved Renal insufficiency Hypernatremia -Monitor renal function, I/O's, electrolytes replacement per protocol Elevated LFT's. ..trending down -On Puree diet with thin liquids per speech. -US Liver: Fatty liver,. Multiple gallstones with trace fluid around gallbladder wall which is mildly thickened at 4 mm. No biliary ductal dilatation. -Protonix GI prophylaxis -Bowel regimen senna, Colace Leukocytosis Sepsis Meningitis-possible strep pneumo Recurrent fever-improving -ID following- -Continue Penicillin G , Gentamicin for synergy (for Strep pneumo endocarditis) Monitor for signs of infections ( Fever, WBC).Afebrile. -Follow up on central line tip culture 10/30/16 -10/28 CT chest: Bibasilar consolidation -10/28: CT Abdomen/pelvis: Nonobstructing bilateral renal calculi. 2. Stable bilateral adrenal nodules. Previous mesh placement. No residual hernias. Diverticulosis without diverticulitis. Slight inflammatory changes adjacent to the right kidney. No abscess s/p Decadron 10mg Q6 completed 10/25/17 CTS consult (strep endocarditis AV and left side stroke embolic - Patient is not a surgical candidate at this time per -10/21 CSF: GPC on gram stain -10/19 Blood cultures-strep pneumo -10/19 Urine cultures-strep pneumo -Lumbar puncture-noted 50 cc of purulent drainage, gram-positive cocci Diabetes mellitus -SSI medium scale with accuchecks Q6 -hemoglobin A1C 7.1 Prophylaxis: GI Prophylaxis Protonix DVT Prophylaxis -- SCDs Heparin SQ BID Requiring restraints Camila Matthews MD Nov 03, 2016 14:41
[2016-11-03] MEDS: ACETAMINOPHEN 325 MG TAB PO PRN (16:55)
[2016-11-03] MEDS: GENTAMICIN INJ 275 MG in SODIUM CHLORIDE 0.9% INJ 100 ML IV SCH (21:08)
[2016-11-04] MEDS: PENICILLIN G SODIUM INJ 4,000,000 UNITS in SODIUM CHLORIDE 0.9% INJ 100 ML IV SCH ×7 (00:05→21:24)
[2016-11-04 00:18] VITALS: BP 134/74; PULSE 89; RESP 17; TEMP 98; O2SAT 97
[2016-11-04] MEDS: INSULIN NovoLIN REGULAR SUPPLEMENTAL SCALE SQ SCH ×4 (03:51→21:25)
[2016-11-04] MEDS: HEPARIN SODIUM - SQ 10,000 UNITS/ML VIAL SQ SCH ×2 (03:51→13:39)
[2016-11-04] MEDS: CHLORHEXIDINE GLUCONATE 2 % 1 PACK (2 CLOTHS) TOP SCH (03:51)
[2016-11-04 05:20] VITALS: BP 128/77; PULSE 92; RESP 17; TEMP 98.6; O2SAT 97
[2016-11-04 08:16] VITALS: BP 128/78; PULSE 94; RESP 18; TEMP 99.3; O2SAT 95
--- NOTE | 2016-11-04 08:59 | HHI.PR ---
Subjective Remarks Patient in nad. He is more alert and oriented today. Follows all commands. Says she has back pain . No n/v/d/c. Not able to move his left hand, weakness in left leg. No new motor deficit. No change in vision. Speech is clear today. Objective Vitals Vital Signs Date Time Temp Pulse Resp B/P Pulse Ox O2 Delivery O2 Flow Rate FiO2 11/04/16 08:16 99.3 94 18 128/78 95 11/04/16 05:20 98.6 92 17 128/77 97 11/04/16 00:18 98.0 89 17 134/74 97 11/03/16 20:45 98.2 94 17 127/69 97 11/03/16 20:35 95 Nasal Cannula 2.00 11/03/16 15:59 101.0 95 20 125/71 98 11/03/16 11:52 99.1 99 18 121/69 96 I/O 11/03/16 11/03/16 11/03/16 11/04/16 11/04/16 11/04/16 07:00 15:00 23:00 07:00 15:00 23:00 Intake Total 240 ml 600 ml 480 ml Output Total 3400 ml 900 ml 3440 ml Balance -3160 ml -300 ml -2960 ml Intake Oral 240 ml 600 ml 480 ml Output Urine Total 3400 ml 900 ml 3440 ml # Bowel Movements 0 Result Diagram: 11/03/16 0647 11/03/16 0647 Imaging Last Impressions Chest X-Ray 10/31/16 0000 Signed Impressions: Service Date/Time: Monday, October 31, 2016 12:37 - CONCLUSION: Limited study. Bibasilar atelectasis. Alex Bass Jr., MD Brain MRI 10/29/16 0000 Signed Impressions: Service Date/Time: Saturday, October 29, 2016 14:32 - CONCLUSION: Stable MRI of the brain. Findings consistent with right basal ganglion and thalamic subacute infarct. Chase Henry MD Chest CT 10/28/16 0000 Signed Impressions: Service Date/Time: Friday, October 28, 2016 16:51 - CONCLUSION: 1. Bibasilar consolidation. I'm concerned these could relate to infectious infiltrates. Atelectasis is felt less likely. Alex Bass Jr., MD Abdomen/Pelvis CT 10/28/16 0000 Signed Impressions: Service Date/Time: Friday, October 28, 2016 16:51 - CONCLUSION: 1. Nonobstructing bilateral renal calculi. 2. Stable bilateral adrenal nodules. 3. Previous mesh placement. No residual hernias. 4. Diverticulosis without diverticulitis. 5. Slight inflammatory changes adjacent to the right kidney, nonspecific. 6. No abscess. Gatito Abbott MD Liver Ultrasound 10/25/16 0000 Signed Impressions: Service Date/Time: Tuesday, October 25, 2016 19:05 - CONCLUSION: 1. Fatty liver enlarged to 20 cm in length. Multiple gallstones with trace fluid around gallbladder wall which is mildly thickened at 4 mm. No biliary ductal dilatation. Clifton Watson MD Lumbar Puncture Fluoroscopy 10/21/16 0000 Signed Impressions: Service Date/Time: Friday, October 21, 2016 15:20 - CONCLUSION: Uncomplicated fluoroscopically guided lumbar puncture with pressures as above. 12 cc of pus was collected and sent to the lab. Dr. Reid was notified. Melvin Nielsen MD Head CT 10/20/16 0000 Signed Impressions: Service Date/Time: Thursday, October 20, 2016 03:40 - CONCLUSION: 1. No evidence of acute intracranial pathology. No masses are identified. 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 Micha Wallace MD Abdomen X-Ray 10/20/16 0000 Signed Impressions: Service Date/Time: Thursday, October 20, 2016 12:03 - CONCLUSION: Nonspecific bowel gas. Maximiliano Nielsen MD FACR Objective Remarks GENERAL: 51 yo ill-appearing male lying in bed. Left hemiplegia SKIN: Warm and dry. HEAD: Atraumatic. Normocephalic. EYES: Pupils equal and round, 2 mm. No scleral icterus, or nystagmus. No injection or drainage. ENT: No nasal bleeding or discharge. Mucous membranes pink and moist. NECK: Trachea midline. No JVD. CARDIOVASCULAR: Regular rate, and regular rhythm. RESPIRATORY: Breath sounds equal bilaterally. No wheezes or crackles today GASTROINTESTINAL: Abdomen soft, non-tender, nondistended. No guarding. Well- healed midline abdominal scar MUSCULOSKELETAL: No obvious deformities. NEUROLOGICAL: Pt wakes up following commands right upper and lower extremity, hemiplegic on the left side. 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 Status: Acute (4) Bacterial meningitis ICD Code: G00.9 Status: Acute (5) Left hemiplegia ICD Code: G81.94 Status: Acute (6) Embolic stroke of left basal ganglia ICD Code: I63.40 Status: Acute (7) Alcohol dependence ICD Code: F10.20 Status: Acute (8) Diabetes ICD Code: E11.9 Status: Acute Assessment and Plan 51 yo male with: Toxic metabolic encephalopathy Right Subacute basal ganglia infarct, with L hemiplegia Bacterial Meningitis Alcohol/substance use disorder -Monitor neuro status and minimize sedatives -Repeat MRI brain w and wo contrast r/o Cerebritis-no acute changes from previous -CT 10/19no acute pathology, 10/20- Old right basal ganglia infarct -MRI 10/20-right basal ganglia subacute infarction -ASA 325mg /daily -10/19 Expanded urine tox screen- positive for amphetamines, cannabinoids, opiates -Neurology following- Dr. Macias -Monitor for alcohol withdrawal-Ativan 2 mg every 4 hours when necessary-change to 1 mg IV q4 on 10/30/16 -Monitor for seizure activity -Lumbar puncture 10/2143-velz-blgcrblz cocci on gram stain, no growth final culture. LP fluid studies consistent with bacterial meningitis -10/20 EEG-severe encephalopathy -Thiamine and folate daily -PT/OT/ST -Off restraints. Continue PT/OT. Patient with back pain. Give norco, limit use or narcotics if possible. Respiratory insufficiency -Continue with oxygen keep sat >92% -Bronchodilators DuoNeb every 6 hours scheduled and when necessary -Aspiration precautions -On Cardizem 60mg QID-Monitor HR and BP keep MAP>65mmHg - ROSIBEL 10/22 endocarditis, aortic vegetations, EF 55% - Cardiology Dr. Ritter Dehydration-resolved Renal insufficiency Hypernatremia -Monitor renal function, I/O's, electrolytes replacement per protocol Elevated LFT's. ..trending down -On Puree diet with thin liquids per speech. -US Liver: Fatty liver,. Multiple gallstones with trace fluid around gallbladder wall which is mildly thickened at 4 mm. No biliary ductal dilatation. -Protonix GI prophylaxis -Bowel regimen senna, Colace Leukocytosis Sepsis Meningitis-possible strep pneumo Recurrent fever-improving -ID following- -Continue Penicillin G , Gentamicin for synergy (for Strep pneumo endocarditis) Monitor for signs of infections ( Fever, WBC).Afebrile. -Follow up on central line tip culture 10/30/16 -10/28 CT chest: Bibasilar consolidation -10/28: CT Abdomen/pelvis: Nonobstructing bilateral renal calculi. 2. Stable bilateral adrenal nodules. Previous mesh placement. No residual hernias. Diverticulosis without diverticulitis. Slight inflammatory changes adjacent to the right kidney. No abscess s/p Decadron 10mg Q6 completed 10/25/17 CTS consult (strep endocarditis AV and left side stroke embolic - Patient is not a surgical candidate at this time per -10/21 CSF: GPC on gram stain -10/19 Blood cultures-strep pneumo -10/19 Urine cultures-strep pneumo -Lumbar puncture-noted 50 cc of purulent drainage, gram-positive cocci Diabetes mellitus -SSI medium scale with accuchecks Q6 -hemoglobin A1C 7.1 Prophylaxis: GI Prophylaxis Protonix DVT Prophylaxis -- SCDs Heparin SQ BID Off restraints, more alert and awake. Camila Matthews MD Nov 04, 2016 08:59
[2016-11-04] MEDS: SENNOSIDES 8.6 MG TAB PO SCH (09:00)
[2016-11-04] MEDS: SODIUM CHLORIDE 0.9% FLUSH 5 ML FLUSH IV FLUSH SCH ×2 (09:00→21:24)
[2016-11-04] MEDS: PANTOPRAZOLE SODIUM 40 MG VIAL IV SCH (09:48)
[2016-11-04] MEDS: DOCUSATE SODIUM 100 MG CAP PO SCH ×2 (09:48→21:24)
[2016-11-04] MEDS: DILTIAZEM HCL 60 MG TAB PO SCH ×4 (09:48→21:24)
[2016-11-04] MEDS: FOLIC ACID 1 MG TAB PO SCH (09:49)
[2016-11-04] MEDS: THIAMINE HCL 100 MG TAB PO SCH (09:49)
[2016-11-04] MEDS: ASPIRIN 81 MG CHEW TAB CHEW SCH (09:49)
[2016-11-04 12:35] VITALS: BP 130/79; PULSE 105; RESP 20; TEMP 99.6; O2SAT 98
[2016-11-04] MEDS: ACETAMINOPHEN/HYDROcodone 325 MG/5 MG TAB PO PRN (14:42)
[2016-11-04 16:20] VITALS: BP 122/81; PULSE 104; RESP 20; TEMP 101.4; O2SAT 96
[2016-11-04 20:22] VITALS: BP 129/83; PULSE 91; RESP 17; TEMP 98.6; O2SAT 96
[2016-11-04] MEDS: GENTAMICIN INJ 275 MG in SODIUM CHLORIDE 0.9% INJ 100 ML IV SCH (21:23)
[2016-11-05] VITALS (7 sets, daily range): BP systolic 115–136; BP diastolic 70–93; PULSE 93–104; RESP 17–20; TEMP 97.9–101; O2SAT 93–98
[2016-11-05] MEDS: PENICILLIN G SODIUM INJ 4,000,000 UNITS in SODIUM CHLORIDE 0.9% INJ 100 ML IV SCH ×6 (02:36→22:32)
[2016-11-05] MEDS: INSULIN NovoLIN REGULAR SUPPLEMENTAL SCALE SQ SCH ×4 (02:37→21:10)
[2016-11-05] MEDS: HEPARIN SODIUM - SQ 10,000 UNITS/ML VIAL SQ SCH ×2 (02:38→16:29)
[2016-11-05] MEDS: CHLORHEXIDINE GLUCONATE 2 % 1 PACK (2 CLOTHS) TOP SCH (04:00)
[2016-11-05] MEDS: THIAMINE HCL 100 MG TAB PO SCH (09:50)
[2016-11-05] MEDS: ASPIRIN 81 MG CHEW TAB CHEW SCH (09:50)
[2016-11-05] MEDS: FOLIC ACID 1 MG TAB PO SCH (09:50)
[2016-11-05] MEDS: DOCUSATE SODIUM 100 MG CAP PO SCH ×2 (09:51→21:10)
[2016-11-05] MEDS: PANTOPRAZOLE SODIUM 40 MG VIAL IV SCH (09:51)
[2016-11-05] MEDS: DILTIAZEM HCL 60 MG TAB PO SCH ×4 (09:51→21:10)
[2016-11-05] MEDS: SODIUM CHLORIDE 0.9% FLUSH 5 ML FLUSH IV FLUSH SCH ×2 (09:51→21:10)
[2016-11-05] MEDS: SENNOSIDES 8.6 MG TAB PO SCH (09:51)
--- NOTE | 2016-11-05 12:01 | HHI.PR ---
Subjective Remarks In bed, sleepy. Says she feel much better today. No n/v/d/c. Eating well. No new motor deficit. No seizure activity. Off restraints. No fever or chills. Objective Vitals Vital Signs Date Time Temp Pulse Resp B/P Pulse Ox O2 Delivery O2 Flow Rate FiO2 11/05/16 08:06 97.9 104 18 131/78 93 11/05/16 05:43 98.9 93 17 130/72 97 11/05/16 00:04 100.5 97 17 136/93 96 11/04/16 20:22 98.6 91 17 129/83 96 11/04/16 16:20 101.4 104 20 122/81 96 11/04/16 12:35 99.6 105 20 130/79 98 I/O 11/04/16 11/04/16 11/04/16 11/05/16 11/05/16 11/05/16 07:00 15:00 23:00 07:00 15:00 23:00 Intake Total 480 ml 480 ml 240 ml 240 ml Output Total 3440 ml 900 ml 3000 ml 1500 ml Balance -2960 ml -420 ml -2760 ml -1260 ml Intake Oral 480 ml 480 ml 240 ml 240 ml Output Urine Total 3440 ml 900 ml 3000 ml 1500 ml # Bowel Movements 1 Result Diagram: 11/03/16 0647 11/03/16 0647 Imaging Last Impressions Chest X-Ray 10/31/16 0000 Signed Impressions: Service Date/Time: Monday, October 31, 2016 12:37 - CONCLUSION: Limited study. Bibasilar atelectasis. Alex Bass Jr., MD Brain MRI 10/29/16 0000 Signed Impressions: Service Date/Time: Saturday, October 29, 2016 14:32 - CONCLUSION: Stable MRI of the brain. Findings consistent with right basal ganglion and thalamic subacute infarct. Chase Henry MD Chest CT 10/28/16 0000 Signed Impressions: Service Date/Time: Friday, October 28, 2016 16:51 - CONCLUSION: 1. Bibasilar consolidation. I'm concerned these could relate to infectious infiltrates. Atelectasis is felt less likely. Alex Bass Jr., MD Abdomen/Pelvis CT 10/28/16 0000 Signed Impressions: Service Date/Time: Friday, October 28, 2016 16:51 - CONCLUSION: 1. Nonobstructing bilateral renal calculi. 2. Stable bilateral adrenal nodules. 3. Previous mesh placement. No residual hernias. 4. Diverticulosis without diverticulitis. 5. Slight inflammatory changes adjacent to the right kidney, nonspecific. 6. No abscess. Gatito Abbott MD Liver Ultrasound 10/25/16 0000 Signed Impressions: Service Date/Time: Tuesday, October 25, 2016 19:05 - CONCLUSION: 1. Fatty liver enlarged to 20 cm in length. Multiple gallstones with trace fluid around gallbladder wall which is mildly thickened at 4 mm. No biliary ductal dilatation. Clifton Watson MD Lumbar Puncture Fluoroscopy 10/21/16 0000 Signed Impressions: Service Date/Time: Friday, October 21, 2016 15:20 - CONCLUSION: Uncomplicated fluoroscopically guided lumbar puncture with pressures as above. 12 cc of pus was collected and sent to the lab. Dr. Reid was notified. Melvin Nielsen MD Head CT 10/20/16 0000 Signed Impressions: Service Date/Time: Thursday, October 20, 2016 03:40 - CONCLUSION: 1. No evidence of acute intracranial pathology. No masses are identified. 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 Micha Wallace MD Abdomen X-Ray 10/20/16 0000 Signed Impressions: Service Date/Time: Thursday, October 20, 2016 12:03 - CONCLUSION: Nonspecific bowel gas. Maximiliano Nielsen MD FACR Objective Remarks GENERAL: 51 yo ill-appearing male lying in bed. Left hemiplegia SKIN: Warm and dry. HEAD: Atraumatic. Normocephalic. EYES: Pupils equal and round, 2 mm. No scleral icterus, or nystagmus. No injection or drainage. ENT: No nasal bleeding or discharge. Mucous membranes pink and moist. NECK: Trachea midline. No JVD. CARDIOVASCULAR: Regular rate, and regular rhythm. RESPIRATORY: Breath sounds equal bilaterally. No wheezes or crackles today GASTROINTESTINAL: Abdomen soft, non-tender, nondistended. No guarding. Well- healed midline abdominal scar MUSCULOSKELETAL: No obvious deformities. NEUROLOGICAL: Pt wakes up following commands right upper and lower extremity, hemiplegic on the left side. 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 Status: Acute (4) Bacterial meningitis ICD Code: G00.9 Status: Acute (5) Left hemiplegia ICD Code: G81.94 Status: Acute (6) Embolic stroke of left basal ganglia ICD Code: I63.40 Status: Acute (7) Alcohol dependence ICD Code: F10.20 Status: Acute (8) Diabetes ICD Code: E11.9 Status: Acute Assessment and Plan 51 yo male with: Toxic metabolic encephalopathy Right Subacute basal ganglia infarct, with L hemiplegia Bacterial Meningitis Alcohol/substance use disorder -Monitor neuro status and minimize sedatives -Repeat MRI brain w and wo contrast r/o Cerebritis-no acute changes from previous -CT 10/19no acute pathology, 10/20- Old right basal ganglia infarct -MRI 10/20-right basal ganglia subacute infarction -ASA 325mg /daily -10/19 Expanded urine tox screen- positive for amphetamines, cannabinoids, opiates -Neurology following- Dr. Macias -Monitor for alcohol withdrawal-Ativan 2 mg every 4 hours when necessary-change to 1 mg IV q4 on 10/30/16 -Monitor for seizure activity -Lumbar puncture 10/2134-mhad-eoctwpbr cocci on gram stain, no growth final culture. LP fluid studies consistent with bacterial meningitis -10/20 EEG-severe encephalopathy -Thiamine and folate daily -PT/OT/ST -Off restraints. Continue PT/OT. Patient with back pain. Give norco, limit use or narcotics if possible. Respiratory insufficiency -Continue with oxygen keep sat >92% -Bronchodilators DuoNeb every 6 hours scheduled and when necessary -Aspiration precautions -On Cardizem 60mg QID-Monitor HR and BP keep MAP>65mmHg - ROSIBEL 10/22 endocarditis, aortic vegetations, EF 55% - Cardiology Dr. Ritter Dehydration-resolved Renal insufficiency Hypernatremia -Monitor renal function, I/O's, electrolytes replacement per protocol Elevated LFT's. ..trending down -On Puree diet with thin liquids per speech. -US Liver: Fatty liver,. Multiple gallstones with trace fluid around gallbladder wall which is mildly thickened at 4 mm. No biliary ductal dilatation. -Protonix GI prophylaxis -Bowel regimen senna, Colace Leukocytosis Sepsis Meningitis-possible strep pneumo Recurrent fever-improving -ID following- -Continue Penicillin G , Gentamicin for synergy (for Strep pneumo endocarditis) Monitor for signs of infections ( Fever, WBC).Afebrile. -Follow up on central line tip culture 10/30/16 -10/28 CT chest: Bibasilar consolidation -10/28: CT Abdomen/pelvis: Nonobstructing bilateral renal calculi. 2. Stable bilateral adrenal nodules. Previous mesh placement. No residual hernias. Diverticulosis without diverticulitis. Slight inflammatory changes adjacent to the right kidney. No abscess s/p Decadron 10mg Q6 completed 10/25/17 CTS consult (strep endocarditis AV and left side stroke embolic - Patient is not a surgical candidate at this time per -10/21 CSF: GPC on gram stain -10/19 Blood cultures-strep pneumo -10/19 Urine cultures-strep pneumo -Lumbar puncture-noted 50 cc of purulent drainage, gram-positive cocci Diabetes mellitus -SSI medium scale with accuchecks Q6 -hemoglobin A1C 7.1 Prophylaxis: GI Prophylaxis Protonix DVT Prophylaxis -- SCDs Heparin SQ BID Off restraints, more alert and awake. Improving. DC when improved and cleared by consultants. CM also following for DC plan. Needs rehab. Camila Matthews MD Nov 05, 2016 12:01
[2016-11-05] MEDS: ACETAMINOPHEN/HYDROcodone 325 MG/5 MG TAB PO PRN (14:20)
[2016-11-05] MEDS: RESP: ALBUTEROL 2.5 MG/IPRATROPIUM 0.5 MG NEB (PRN) NEB (14:52)
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
--- NOTE | 2016-11-05 18:31 | RADRPT ---
EXAM DATE/TIME: 11/05/2016 18:02 [facility] COMPARISON: No previous studies available for comparison. INDICATIONS : Left foot pain for several days. MEDICAL HISTORY : None. SURGICAL HISTORY : None. ENCOUNTER: Subsequent ACUITY: 2 days PAIN SCORE: 4/10 LOCATION: Left foot. FINDINGS: Two view examination of the left foot demonstrates no soft tissue swelling, dislocation, or fracture. The calcaneus is intact. Bony mineralization is normal. CONCLUSION: No acute disease. Julien Lopez MD on November 05, 2016 at 18:29 Board Certified Radiologist. This report was verified electronically.
[2016-11-05] MEDS: GENTAMICIN INJ 275 MG in SODIUM CHLORIDE 0.9% INJ 100 ML IV SCH (21:09)
[2016-11-05] MEDS: ACETAMINOPHEN 325 MG TAB PO PRN (22:31)
[2016-11-06] VITALS: BP 137/74; PULSE 93; RESP 20; TEMP 99.2; O2SAT 96
[2016-11-06] MEDS: PENICILLIN G SODIUM INJ 4,000,000 UNITS in SODIUM CHLORIDE 0.9% INJ 100 ML IV SCH ×6 (02:00→22:00)
[2016-11-06] MEDS: ACETAMINOPHEN/HYDROcodone 325 MG/5 MG TAB PO PRN ×3 (03:37→14:31)
[2016-11-06] MEDS: INSULIN NovoLIN REGULAR SUPPLEMENTAL SCALE SQ SCH ×3 (03:42→15:00)
[2016-11-06] MEDS: HEPARIN SODIUM - SQ 10,000 UNITS/ML VIAL SQ SCH ×2 (03:42→17:14)
[2016-11-06 04:00] VITALS: BP 122/81; PULSE 88; RESP 20; TEMP 97.3; O2SAT 96
[2016-11-06] MEDS: CHLORHEXIDINE GLUCONATE 2 % 1 PACK (2 CLOTHS) TOP SCH (04:00)
[2016-11-06 07:20] VITALS: BP 135/78; PULSE 92; RESP 22; TEMP 98.1; O2SAT 98
[2016-11-06 07:42] LABS: AUTOMATED NEUTROPHIL # 9.6 TH/MM3 (1.8-7.7); BASOPHIL # 0.1 TH/MM3 (0-0.2); BASOPHIL % 0.7 % (0.0-2.0); EOSINOPHIL # 0.1 TH/MM3 (0-0.4); HEMATOCRIT 35.3 % (39.0-51.0); HEMO FLAGS DIFF FINAL; LYMPH % 14.5 % (9.0-44.0); LYMPHOCYTE # 1.8 TH/MM3 (1.0-4.8); MEAN CELL VOLUME 97.3 FL (80.0-100.0); MEAN CORPUSCULAR HEMOGLOBIN 32.2 PG (27.0-34.0); MEAN CORPUSCULAR HGB CONC 33.1 % (32.0-36.0); MONO % 6.7 % (0.0-8.0); NEUT % 77.1 % (16.0-70.0); PLATELET COUNT 432 TH/MM3 (150-450); RED BLOOD COUNT 3.63 MIL/MM3 (4.50-5.90); RED CELL DISTRIBUTION WIDTH 13.1 % (11.6-17.2); WHITE BLOOD COUNT 12.5 TH/MM3 (4.0-11.0)
[2016-11-06 07:56] LABS: BICARBONATE 29.3 MEQ/L (21.0-32.0); POTASSIUM 4.9 MEQ/L (3.5-5.1)
--- NOTE | 2016-11-06 08:49 | RADRPT ---
EXAM DATE/TIME: 11/06/2016 08:38 [facility] COMPARISON: CHEST SINGLE AP, October 31, 2016, 12:37. INDICATIONS : Evaluate pneumonia MEDICAL HISTORY : Sepsis. SURGICAL HISTORY : None. ENCOUNTER: Subsequent ACUITY: 2 weeks PAIN SCORE: 0/10 LOCATION: Bilateral chest FINDINGS: A single view of the chest demonstrates elevation left hemidiaphragm. Linear densities are again seen within the left lung base. The cardiomediastinal contours are unremarkable. Osseous structures are intact. CONCLUSION: Left basilar density likely atelectasis. Elevation left hemidiaphragm. Gatito Abbott MD on November 06, 2016 at 8:46 Board Certified Radiologist. This report was verified electronically.
[2016-11-06] MEDS: SENNOSIDES 8.6 MG TAB PO SCH (08:59)
[2016-11-06] MEDS: DOCUSATE SODIUM 100 MG CAP PO SCH ×2 (08:59→21:00)
[2016-11-06] MEDS: DILTIAZEM HCL 60 MG TAB PO SCH ×4 (08:59→21:00)
[2016-11-06] MEDS: FOLIC ACID 1 MG TAB PO SCH (08:59)
[2016-11-06] MEDS: THIAMINE HCL 100 MG TAB PO SCH (08:59)
[2016-11-06] MEDS: SODIUM CHLORIDE 0.9% FLUSH 5 ML FLUSH IV FLUSH SCH ×2 (09:00→21:00)
[2016-11-06] MEDS: PANTOPRAZOLE SODIUM 40 MG VIAL IV SCH (09:00)
[2016-11-06] MEDS: ASPIRIN 81 MG CHEW TAB CHEW SCH (09:00)
--- NOTE | 2016-11-06 09:58 | HHI.PR ---
Subjective Remarks Follow up fever, leukocytosis, encephalopathy. The patient states that he is mad at one of his "so-called friends". States that he is feeling OK today. No dyspnea or chest pain at this time. Objective Vitals Vital Signs Date Time Temp Pulse Resp B/P Pulse Ox O2 Delivery O2 Flow Rate FiO2 11/06/16 04:00 97.3 88 20 122/81 96 11/06/16 00:00 99.2 93 20 137/74 96 11/05/16 20:00 101.0 98 20 122/71 97 11/05/16 16:10 98.6 94 18 115/70 95 11/05/16 14:52 96 Nasal Cannula 2.00 11/05/16 12:20 98.8 101 18 130/76 98 I/O 11/05/16 11/05/16 11/05/16 11/06/16 11/06/16 11/06/16 07:00 15:00 23:00 07:00 15:00 23:00 Intake Total 240 ml 480 ml 1200 ml 720 ml Output Total 1500 ml 2500 ml 600 ml 1800 ml Balance -1260 ml -2020 ml 600 ml -1080 ml Intake Oral 240 ml 480 ml 1200 ml 720 ml Output Urine Total 1500 ml 2500 ml 600 ml 1800 ml # Bowel Movements 1 0 1 Result Diagram: 11/06/16 0655 11/06/16 0655 Imaging Last Impressions Chest X-Ray 11/06/16 0000 Signed Impressions: Service Date/Time: November 08:38 - CONCLUSION: Left basilar density likely atelectasis. Elevation left hemidiaphragm. Gatito Abbott MD Foot X-Ray 11/05/16 0000 Signed Impressions: Service Date/Time: Saturday, November 05, 2016 18:02 - CONCLUSION: No acute disease. Julien Lopez MD Brain MRI 10/29/16 0000 Signed Impressions: Service Date/Time: Saturday, October 29, 2016 14:32 - CONCLUSION: Stable MRI of the brain. Findings consistent with right basal ganglion and thalamic subacute infarct. Chase Henry MD Chest CT 10/28/16 0000 Signed Impressions: Service Date/Time: Friday, October 28, 2016 16:51 - CONCLUSION: 1. Bibasilar consolidation. I'm concerned these could relate to infectious infiltrates. Atelectasis is felt less likely. Alex Bass Jr., MD Abdomen/Pelvis CT 10/28/16 0000 Signed Impressions: Service Date/Time: Friday, October 28, 2016 16:51 - CONCLUSION: 1. Nonobstructing bilateral renal calculi. 2. Stable bilateral adrenal nodules. 3. Previous mesh placement. No residual hernias. 4. Diverticulosis without diverticulitis. 5. Slight inflammatory changes adjacent to the right kidney, nonspecific. 6. No abscess. Gatito Abbott MD Liver Ultrasound 10/25/16 0000 Signed Impressions: Service Date/Time: Tuesday, October 25, 2016 19:05 - CONCLUSION: 1. Fatty liver enlarged to 20 cm in length. Multiple gallstones with trace fluid around gallbladder wall which is mildly thickened at 4 mm. No biliary ductal dilatation. Clifton Watson MD Lumbar Puncture Fluoroscopy 10/21/16 0000 Signed Impressions: Service Date/Time: Friday, October 21, 2016 15:20 - CONCLUSION: Uncomplicated fluoroscopically guided lumbar puncture with pressures as above. 12 cc of pus was collected and sent to the lab. Dr. Reid was notified. Melvin Nielsen MD Head CT 10/20/16 0000 Signed Impressions: Service Date/Time: Thursday, October 20, 2016 03:40 - CONCLUSION: 1. No evidence of acute intracranial pathology. No masses are identified. 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 Micha Wallace MD Abdomen X-Ray 10/20/16 0000 Signed Impressions: Service Date/Time: Thursday, October 20, 2016 12:03 - CONCLUSION: Nonspecific bowel gas. Maximiliano Nielsen MD FACR Objective Remarks General: No acute distress. Heart: Regular rate and rhythm. No murmur. Lungs: Clear to auscultation bilaterally. No wheezes, rales, or rhonchi. Breathing is nonlabored. Abdomen: Soft, nontender, nondistended. Extremities: No lower extremity edema. Left-sided weakness is noted. Psych: Alert and oriented 3. 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 Sepsis secondary to strep pneumoniae meningitis: Appreciate infectious disease recommendations. Continue antibiotics (Penicillin G x 6 weeks, Gentamicin x 2 weeks). Gentamicin course complete today. Follow labs, cultures. 2. Toxic metabolic encephalopathy: Monitor neuro status. Appreciate neurology recommendations. Monitor for alcohol withdrawal. EEG on 10/20/16 showed severe encephalopathy. Continue Thiamine, Folate. 3. Respiratory insufficiency: Continue supplemental oxygen as needed. DuoNeb scheduled and as needed. 4. Endocarditis: ROSIBEL on 10/22/16 showed aortic vegetations, EF 55%. Continue antibiotics. Appreciate ID recommendations. 5. Dehydration: Resolved. 6. Elevated LFTs: Trending down. Liver ultrasound shows fatty liver, multiple gallstones, mildly thickened gallbladder wall. 7. Diabetes mellitus: Monitor accuchecks and cover with sliding scale insulin. 8. GI Prophylaxis: Protonix. 9. DVT prophylaxis: Heparin, SCDs. Discharge Planning Patient will need rehab at discharge. Case management assisting with discharge planning. Josh Amanda MD Nov 06, 2016 09:58
[2016-11-06 11:05] VITALS: BP 133/83; PULSE 96; RESP 20; TEMP 98.8; O2SAT 96
[2016-11-06 15:14] VITALS: BP 126/76; PULSE 88; RESP 20; TEMP 98.2; O2SAT 98
[2016-11-06 18:49] LABS: BLOOD, URINE SMALL (NEG); GLUCOSE,URINE 1000 mg/dL (NEG); KETONE, URINE NEG (NEG); NITRITE,URINE NEG (NEG); SQUAMOUS EPITHELIAL CELL URINE <1 /hpf (0-5); URINE COLOR LIGHT-YELLOW (YELLW/STRAW)
[2016-11-06 18:50] LABS: COMMENT (UR) CATH-CULTURE IND; CULTURE IF INDICATED CATH CULTURE IND
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
[2016-11-06] MEDS: GENTAMICIN INJ 275 MG in SODIUM CHLORIDE 0.9% INJ 100 ML IV SCH (20:00)
[2016-11-06 21:00] VITALS: BP 143/85; PULSE 96; RESP 19; TEMP 100.3; O2SAT 97
[2016-11-07] VITALS: BP 115/73; PULSE 86; RESP 17; TEMP 99.3; O2SAT 94
[2016-11-07] MEDS: ACETAMINOPHEN/HYDROcodone 325 MG/5 MG TAB PO PRN ×5 (02:35→23:02)
[2016-11-07] MEDS: PENICILLIN G SODIUM INJ 4,000,000 UNITS in SODIUM CHLORIDE 0.9% INJ 100 ML IV SCH ×6 (02:36→23:04)
[2016-11-07] MEDS: INSULIN NovoLIN REGULAR SUPPLEMENTAL SCALE SQ SCH ×3 (02:42→14:25)
[2016-11-07] MEDS: HEPARIN SODIUM - SQ 10,000 UNITS/ML VIAL SQ SCH ×2 (02:43→17:55)
[2016-11-07] MEDS: CHLORHEXIDINE GLUCONATE 2 % 1 PACK (2 CLOTHS) TOP SCH (04:00)
[2016-11-07 04:30] VITALS: BP 135/80; PULSE 80; RESP 18; TEMP 99; O2SAT 95
[2016-11-07 08:00] VITALS: BP 122/76; PULSE 86; RESP 18; TEMP 97.4; O2SAT 95
[2016-11-07] MEDS: FOLIC ACID 1 MG TAB PO SCH (09:58)
[2016-11-07] MEDS: PANTOPRAZOLE SODIUM 40 MG VIAL IV SCH (09:59)
[2016-11-07] MEDS: THIAMINE HCL 100 MG TAB PO SCH (09:59)
[2016-11-07] MEDS: DILTIAZEM HCL 60 MG TAB PO SCH ×4 (09:59→23:04)
[2016-11-07] MEDS: ASPIRIN 81 MG CHEW TAB CHEW SCH (10:00)
[2016-11-07] MEDS: DOCUSATE SODIUM 100 MG CAP PO SCH ×2 (10:00→23:04)
[2016-11-07] MEDS: SENNOSIDES 8.6 MG TAB PO SCH (10:00)
[2016-11-07] MEDS: SODIUM CHLORIDE 0.9% FLUSH 5 ML FLUSH IV FLUSH SCH ×2 (10:01→23:04)
[2016-11-07 12:25] VITALS: BP 135/77; PULSE 100; RESP 18; TEMP 98.2; O2SAT 94
--- NOTE | 2016-11-07 14:42 | HHI.PR ---
Subjective Remarks Follow up fever, leukocytosis, encephalopathy. Patient states that he wants to go home. Still with no left-sided strength. No other complaints at this time. Objective Vitals Vital Signs Date Time Temp Pulse Resp B/P Pulse Ox O2 Delivery O2 Flow Rate FiO2 11/07/16 12:25 98.2 100 18 135/77 94 11/07/16 08:00 97.4 86 18 122/76 95 11/07/16 04:30 99.0 80 18 135/80 95 11/07/16 00:00 99.3 86 17 115/73 94 11/06/16 21:00 100.3 96 19 143/85 97 11/06/16 15:14 98.2 88 20 126/76 98 I/O 11/06/16 11/06/16 11/06/16 11/07/16 11/07/16 11/07/16 07:00 15:00 23:00 07:00 15:00 23:00 Intake Total 720 ml 1440 ml 1000 ml 1200 ml Output Total 1800 ml 2900 ml 3800 ml 2100 ml Balance -1080 ml -1460 ml -2800 ml -900 ml Intake Oral 720 ml 1440 ml 1000 ml 1200 ml Output Urine Total 1800 ml 2900 ml 3800 ml 2100 ml # Bowel Movements 1 0 0 0 Result Diagram: 11/06/16 0655 11/07/16 0640 Imaging Last Impressions Chest X-Ray 11/06/16 0000 Signed Impressions: Service Date/Time: November 08:38 - CONCLUSION: Left basilar density likely atelectasis. Elevation left hemidiaphragm. Gatito Abbott MD Foot X-Ray 11/05/16 0000 Signed Impressions: Service Date/Time: Saturday, November 05, 2016 18:02 - CONCLUSION: No acute disease. Julien Lopez MD Brain MRI 10/29/16 0000 Signed Impressions: Service Date/Time: Saturday, October 29, 2016 14:32 - CONCLUSION: Stable MRI of the brain. Findings consistent with right basal ganglion and thalamic subacute infarct. Chase Henry MD Chest CT 10/28/16 0000 Signed Impressions: Service Date/Time: Friday, October 28, 2016 16:51 - CONCLUSION: 1. Bibasilar consolidation. I'm concerned these could relate to infectious infiltrates. Atelectasis is felt less likely. Alex Bass Jr., MD Abdomen/Pelvis CT 10/28/16 0000 Signed Impressions: Service Date/Time: Friday, October 28, 2016 16:51 - CONCLUSION: 1. Nonobstructing bilateral renal calculi. 2. Stable bilateral adrenal nodules. 3. Previous mesh placement. No residual hernias. 4. Diverticulosis without diverticulitis. 5. Slight inflammatory changes adjacent to the right kidney, nonspecific. 6. No abscess. Gatito Abbott MD Liver Ultrasound 10/25/16 0000 Signed Impressions: Service Date/Time: Tuesday, October 25, 2016 19:05 - CONCLUSION: 1. Fatty liver enlarged to 20 cm in length. Multiple gallstones with trace fluid around gallbladder wall which is mildly thickened at 4 mm. No biliary ductal dilatation. Clifton Watson MD Lumbar Puncture Fluoroscopy 10/21/16 0000 Signed Impressions: Service Date/Time: Friday, October 21, 2016 15:20 - CONCLUSION: Uncomplicated fluoroscopically guided lumbar puncture with pressures as above. 12 cc of pus was collected and sent to the lab. Dr. Reid was notified. Melvin Nielsen MD Head CT 10/20/16 0000 Signed Impressions: Service Date/Time: Thursday, October 20, 2016 03:40 - CONCLUSION: 1. No evidence of acute intracranial pathology. No masses are identified. 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 Micha Wallace MD Abdomen X-Ray 10/20/16 0000 Signed Impressions: Service Date/Time: Thursday, October 20, 2016 12:03 - CONCLUSION: Nonspecific bowel gas. Maximiliano Nielsen MD FACR Objective Remarks General: No acute distress. Heart: Regular rate and rhythm. No murmur. Lungs: Clear to auscultation bilaterally. No wheezes, rales, or rhonchi. Breathing is nonlabored. Abdomen: Soft, nontender, nondistended. Extremities: No lower extremity edema. Left-sided weakness is noted. Psych: Alert and oriented 3. 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 Sepsis secondary to strep pneumoniae meningitis: Appreciate infectious disease recommendations. Continue antibiotics (Penicillin G x 6 weeks; Gentamicin 2 week course completed). Follow labs, cultures. 2. Toxic metabolic encephalopathy: Monitor neuro status. Appreciate neurology recommendations. Monitor for alcohol withdrawal. EEG on 10/20/16 showed severe encephalopathy. Continue Thiamine, Folate. 3. Respiratory insufficiency: Continue supplemental oxygen as needed. DuoNeb scheduled and as needed. 4. Endocarditis: ROSIBEL on 10/22/16 showed aortic vegetations, EF 55%. Continue antibiotics. Appreciate ID recommendations. 5. Dehydration: Resolved. 6. Elevated LFTs: Trending down. Liver ultrasound shows fatty liver, multiple gallstones, mildly thickened gallbladder wall. 7. Diabetes mellitus: Monitor accuchecks and cover with sliding scale insulin. 8. GI Prophylaxis: Protonix. 9. DVT prophylaxis: Heparin, SCDs. Discharge Planning Patient will need rehab at discharge. Case management assisting with discharge planning. Patient is SSI pending, so no payor for home health or outpatient antibiotics. Josh Amanda MD Nov 07, 2016 14:42
[2016-11-07 16:00] VITALS: BP 127/72; PULSE 88; RESP 18; TEMP 99.2; O2SAT 93
[2016-11-07] MEDS: INSULIN ASPART SUPPLEMENTAL SCALE SQ SCH ×2 (16:00→23:34)
[2016-11-07] MEDS ORDERED: GLUCAGON 1 MG/ML VIAL OTHER PRN (16:00)
[2016-11-07] MEDS ORDERED: DEXTROSE 50% IN WATER 50 ML VIAL(D50) IV PUSH PRN (16:00)
[2016-11-07 21:30] VITALS: BP 138/68; PULSE 80; RESP 18; TEMP 97.7; O2SAT 95
[2016-11-07] MEDS: GENTAMICIN INJ 275 MG in SODIUM CHLORIDE 0.9% INJ 100 ML IV SCH (23:03)
[2016-11-08] VITALS: BP 125/65; PULSE 88; RESP 17; TEMP 98.1; O2SAT 96
[2016-11-08] MEDS: PENICILLIN G SODIUM INJ 4,000,000 UNITS in SODIUM CHLORIDE 0.9% INJ 100 ML IV SCH ×6 (03:51→21:44)
[2016-11-08] MEDS: SODIUM CHLORIDE 0.9% FLUSH 5 ML FLUSH IV FLUSH PRN ×2 (03:52→05:07)
[2016-11-08] MEDS: HEPARIN SODIUM - SQ 10,000 UNITS/ML VIAL SQ SCH ×2 (03:52→15:58)
[2016-11-08] MEDS: CHLORHEXIDINE GLUCONATE 2 % 1 PACK (2 CLOTHS) TOP SCH (03:52)
[2016-11-08 04:30] VITALS: BP 130/66; PULSE 89; RESP 19; TEMP 97.2; O2SAT 96
[2016-11-08] MEDS: INSULIN ASPART SUPPLEMENTAL SCALE SQ SCH ×4 (05:34→22:07)
[2016-11-08] MEDS: ACETAMINOPHEN/HYDROcodone 325 MG/5 MG TAB PO PRN ×4 (06:35→21:44)
[2016-11-08 08:00] VITALS: BP 109/76; PULSE 90; RESP 20; TEMP 98; O2SAT 95
[2016-11-08] MEDS: DILTIAZEM HCL 60 MG TAB PO SCH ×4 (09:00→21:44)
[2016-11-08] MEDS: PANTOPRAZOLE SODIUM 40 MG VIAL IV SCH (09:58)
[2016-11-08] MEDS: THIAMINE HCL 100 MG TAB PO SCH (09:59)
[2016-11-08] MEDS: ASPIRIN 81 MG CHEW TAB CHEW SCH (10:00)
[2016-11-08] MEDS: SODIUM CHLORIDE 0.9% FLUSH 5 ML FLUSH IV FLUSH SCH ×2 (10:00→21:45)
[2016-11-08] MEDS: FOLIC ACID 1 MG TAB PO SCH (10:00)
[2016-11-08] MEDS: SENNOSIDES 8.6 MG TAB PO SCH (10:00)
[2016-11-08] MEDS: DOCUSATE SODIUM 100 MG CAP PO SCH ×2 (10:00→21:44)
[2016-11-08 12:00] VITALS: BP 117/73; PULSE 98; RESP 20; TEMP 98.6; O2SAT 95
--- NOTE | 2016-11-08 14:00 | HHI.PR ---
Subjective Remarks Follow up fever, leukocytosis, encephalopathy. No complaints at this time. Still with left-sided weakness. Objective Vitals Vital Signs Date Time Temp Pulse Resp B/P Pulse Ox O2 Delivery O2 Flow Rate FiO2 11/08/16 12:06 20 11/08/16 12:00 98.6 98 20 117/73 95 11/08/16 08:00 98.0 90 20 109/76 95 11/08/16 04:30 97.2 89 19 130/66 96 11/08/16 00:00 98.1 88 17 125/65 96 11/07/16 21:30 97.7 80 18 138/68 95 11/07/16 16:00 99.2 88 18 127/72 93 I/O 11/07/16 11/07/16 11/07/16 11/08/16 11/08/16 11/08/16 07:00 15:00 23:00 07:00 15:00 23:00 Intake Total 1200 ml 720 ml 1500 ml 2000 ml Output Total 2100 ml 1100 ml 1050 ml 1800 ml Balance -900 ml -380 ml 450 ml 200 ml Intake Oral 1200 ml 720 ml 1500 ml 2000 ml Output Urine Total 2100 ml 1100 ml 1050 ml 1800 ml # Voids 1 # Bowel Movements 0 0 0 Result Diagram: 11/06/16 0655 11/07/16 0640 Imaging Last Impressions Chest X-Ray 11/06/16 0000 Signed Impressions: Service Date/Time: November 08:38 - CONCLUSION: Left basilar density likely atelectasis. Elevation left hemidiaphragm. Gatito Abbott MD Foot X-Ray 11/05/16 0000 Signed Impressions: Service Date/Time: Saturday, November 05, 2016 18:02 - CONCLUSION: No acute disease. Julien Lopez MD Brain MRI 10/29/16 0000 Signed Impressions: Service Date/Time: Saturday, October 29, 2016 14:32 - CONCLUSION: Stable MRI of the brain. Findings consistent with right basal ganglion and thalamic subacute infarct. Chase Henry MD Chest CT 10/28/16 0000 Signed Impressions: Service Date/Time: Friday, October 28, 2016 16:51 - CONCLUSION: 1. Bibasilar consolidation. I'm concerned these could relate to infectious infiltrates. Atelectasis is felt less likely. Alex Bass Jr., MD Abdomen/Pelvis CT 10/28/16 0000 Signed Impressions: Service Date/Time: Friday, October 28, 2016 16:51 - CONCLUSION: 1. Nonobstructing bilateral renal calculi. 2. Stable bilateral adrenal nodules. 3. Previous mesh placement. No residual hernias. 4. Diverticulosis without diverticulitis. 5. Slight inflammatory changes adjacent to the right kidney, nonspecific. 6. No abscess. Gatito Abbott MD Liver Ultrasound 10/25/16 0000 Signed Impressions: Service Date/Time: Tuesday, October 25, 2016 19:05 - CONCLUSION: 1. Fatty liver enlarged to 20 cm in length. Multiple gallstones with trace fluid around gallbladder wall which is mildly thickened at 4 mm. No biliary ductal dilatation. Clifton Watson MD Lumbar Puncture Fluoroscopy 10/21/16 0000 Signed Impressions: Service Date/Time: Friday, October 21, 2016 15:20 - CONCLUSION: Uncomplicated fluoroscopically guided lumbar puncture with pressures as above. 12 cc of pus was collected and sent to the lab. Dr. Reid was notified. Melvin Nielsen MD Head CT 10/20/16 0000 Signed Impressions: Service Date/Time: Thursday, October 20, 2016 03:40 - CONCLUSION: 1. No evidence of acute intracranial pathology. No masses are identified. 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 Micha Wallace MD Abdomen X-Ray 10/20/16 0000 Signed Impressions: Service Date/Time: Thursday, October 20, 2016 12:03 - CONCLUSION: Nonspecific bowel gas. Maximiliano Nielsen MD FACR Objective Remarks General: No acute distress. Heart: Regular rate and rhythm. No murmur. Lungs: Clear to auscultation bilaterally. No wheezes, rales, or rhonchi. Breathing is nonlabored. Abdomen: Soft, nontender, nondistended. Extremities: No lower extremity edema. Left-sided weakness is noted. Psych: Alert and oriented 3. 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 Sepsis secondary to strep pneumoniae meningitis: Appreciate infectious disease recommendations. Continue antibiotics (Penicillin G x 6 weeks; Gentamicin 2 week course completed). Follow labs, cultures. 2. Toxic metabolic encephalopathy: Monitor neuro status. Appreciate neurology recommendations. Monitor for alcohol withdrawal. EEG on 10/20/16 showed severe encephalopathy. Continue Thiamine, Folate. 3. Respiratory insufficiency: Continue supplemental oxygen as needed. DuoNeb scheduled and as needed. 4. Endocarditis: ROSIBEL on 10/22/16 showed aortic vegetations, EF 55%. Continue antibiotics. Appreciate ID recommendations. 5. Dehydration: Resolved. 6. Elevated LFTs: Trending down. Liver ultrasound shows fatty liver, multiple gallstones, mildly thickened gallbladder wall. 7. Diabetes mellitus: Monitor accuchecks and cover with sliding scale insulin. 8. GI Prophylaxis: Protonix. 9. DVT prophylaxis: Heparin, SCDs. 10. Nadine in urine: Add Diflucan. Discharge Planning Patient will need rehab at discharge. Case management assisting with discharge planning. Patient is SSI pending, so no payor for home health or outpatient antibiotics. Josh Amanda MD Nov 08, 2016 14:00
[2016-11-08] MEDS: FLUCONAZOLE 100 MG TAB PO SCH (15:56)
[2016-11-08 16:35] VITALS: BP 126/78; PULSE 101; RESP 20; TEMP 100.4; O2SAT 95
[2016-11-08 20:32] VITALS: BP 129/81; PULSE 89; RESP 16; TEMP 99.1; O2SAT 96
[2016-11-08] MEDS: GENTAMICIN INJ 275 MG in SODIUM CHLORIDE 0.9% INJ 100 ML IV SCH (21:44)
[2016-11-09 00:20] VITALS: BP 141/86; PULSE 91; RESP 16; TEMP 98.3; O2SAT 96
[2016-11-09] MEDS: ACETAMINOPHEN/HYDROcodone 325 MG/5 MG TAB PO PRN ×4 (03:23→21:31)
[2016-11-09] MEDS: HEPARIN SODIUM - SQ 10,000 UNITS/ML VIAL SQ SCH ×2 (03:23→18:46)
[2016-11-09] MEDS: PENICILLIN G SODIUM INJ 4,000,000 UNITS in SODIUM CHLORIDE 0.9% INJ 100 ML IV SCH ×6 (03:23→21:32)
[2016-11-09] MEDS: SODIUM CHLORIDE 0.9% FLUSH 5 ML FLUSH IV FLUSH PRN ×2 (03:24→05:28)
[2016-11-09] MEDS: CHLORHEXIDINE GLUCONATE 2 % 1 PACK (2 CLOTHS) TOP SCH (04:00)
[2016-11-09 04:14] VITALS: BP 119/72; PULSE 84; RESP 18; TEMP 97.8; O2SAT 94
[2016-11-09] MEDS: INSULIN ASPART SUPPLEMENTAL SCALE SQ SCH ×4 (05:41→21:49)
[2016-11-09 08:00] VITALS: BP 126/71; PULSE 86; RESP 20; TEMP 99.3; O2SAT 95
[2016-11-09] MEDS: THIAMINE HCL 100 MG TAB PO SCH (09:47)
[2016-11-09] MEDS: FOLIC ACID 1 MG TAB PO SCH (09:47)
[2016-11-09] MEDS: DILTIAZEM HCL 60 MG TAB PO SCH ×4 (09:47→21:31)
[2016-11-09] MEDS: FLUCONAZOLE 100 MG TAB PO SCH (09:47)
[2016-11-09] MEDS: SENNOSIDES 8.6 MG TAB PO SCH (09:47)
[2016-11-09] MEDS: DOCUSATE SODIUM 100 MG CAP PO SCH ×2 (09:47→21:31)
[2016-11-09] MEDS: ASPIRIN 81 MG CHEW TAB CHEW SCH (09:47)
[2016-11-09] MEDS: SODIUM CHLORIDE 0.9% FLUSH 5 ML FLUSH IV FLUSH SCH ×2 (09:48→21:33)
[2016-11-09] MEDS: PANTOPRAZOLE SODIUM 40 MG VIAL IV SCH (09:48)
[2016-11-09 10:08] LABS: AUTOMATED NEUTROPHIL # 9.4 TH/MM3 (1.8-7.7); BASOPHIL # 0.1 TH/MM3 (0-0.2); BASOPHIL % 0.9 % (0.0-2.0); EOSINOPHIL # 0.2 TH/MM3 (0-0.4); EOSINOPHIL % 1.4 % (0.0-4.0); HEMO FLAGS DIFF FINAL; LYMPH % 13.5 % (9.0-44.0); LYMPHOCYTE # 1.6 TH/MM3 (1.0-4.8); MEAN CELL VOLUME 96.6 FL (80.0-100.0); MEAN CORPUSCULAR HEMOGLOBIN 32.2 PG (27.0-34.0); MEAN CORPUSCULAR HGB CONC 33.4 % (32.0-36.0); NEUT % 78.2 % (16.0-70.0); PLATELET COUNT 476 TH/MM3 (150-450); RED BLOOD COUNT 3.52 MIL/MM3 (4.50-5.90); RED CELL DISTRIBUTION WIDTH 13.2 % (11.6-17.2); WHITE BLOOD COUNT 12.1 TH/MM3 (4.0-11.0)
[2016-11-09 10:30] LABS: BICARBONATE 29.8 MEQ/L (21.0-32.0)
[2016-11-09 10:33] LABS: POTASSIUM 4.6 MEQ/L (3.5-5.1)
--- NOTE | 2016-11-09 10:49 | HHI.PR ---
Subjective Remarks Follow up fever, leukocytosis, encephalopathy. Patient had another low-grade fever yesterday evening. Has had intermittent headache, which he attributes to cold sensitivity. No chest pain or dyspnea today. Objective Vitals Vital Signs Date Time Temp Pulse Resp B/P Pulse Ox O2 Delivery O2 Flow Rate FiO2 11/09/16 08:00 99.3 86 20 126/71 95 11/09/16 04:14 97.8 84 18 119/72 94 11/09/16 00:20 98.3 91 16 141/86 96 11/08/16 20:32 99.1 89 16 129/81 96 11/08/16 17:12 20 11/08/16 16:35 100.4 101 20 126/78 95 11/08/16 12:00 98.6 98 20 117/73 95 I/O 11/08/16 11/08/16 11/08/16 11/09/16 11/09/16 11/09/16 07:00 15:00 23:00 07:00 15:00 23:00 Intake Total 2000 ml 1270 ml Output Total 1800 ml 1000 ml 1450 ml Balance 200 ml 270 ml -1450 ml Intake Oral 2000 ml 1270 ml Output Urine Total 1800 ml 1000 ml 1450 ml # Voids 1 # Bowel Movements 0 1 0 Result Diagram: 11/09/16 0900 11/09/16 0900 Imaging Last Impressions Chest X-Ray 11/06/16 0000 Signed Impressions: Service Date/Time: November 08:38 - CONCLUSION: Left basilar density likely atelectasis. Elevation left hemidiaphragm. Gatito Abbott MD Foot X-Ray 11/05/16 0000 Signed Impressions: Service Date/Time: Saturday, November 05, 2016 18:02 - CONCLUSION: No acute disease. Julien Lopez MD Brain MRI 10/29/16 0000 Signed Impressions: Service Date/Time: Saturday, October 29, 2016 14:32 - CONCLUSION: Stable MRI of the brain. Findings consistent with right basal ganglion and thalamic subacute infarct. Chase Henry MD Chest CT 10/28/16 0000 Signed Impressions: Service Date/Time: Friday, October 28, 2016 16:51 - CONCLUSION: 1. Bibasilar consolidation. I'm concerned these could relate to infectious infiltrates. Atelectasis is felt less likely. Alex Bass Jr., MD Abdomen/Pelvis CT 10/28/16 0000 Signed Impressions: Service Date/Time: Friday, October 28, 2016 16:51 - CONCLUSION: 1. Nonobstructing bilateral renal calculi. 2. Stable bilateral adrenal nodules. 3. Previous mesh placement. No residual hernias. 4. Diverticulosis without diverticulitis. 5. Slight inflammatory changes adjacent to the right kidney, nonspecific. 6. No abscess. Gatito Abbott MD Liver Ultrasound 10/25/16 0000 Signed Impressions: Service Date/Time: Tuesday, October 25, 2016 19:05 - CONCLUSION: 1. Fatty liver enlarged to 20 cm in length. Multiple gallstones with trace fluid around gallbladder wall which is mildly thickened at 4 mm. No biliary ductal dilatation. Clifton Watson MD Lumbar Puncture Fluoroscopy 10/21/16 0000 Signed Impressions: Service Date/Time: Friday, October 21, 2016 15:20 - CONCLUSION: Uncomplicated fluoroscopically guided lumbar puncture with pressures as above. 12 cc of pus was collected and sent to the lab. Dr. Reid was notified. Melvin Nielsen MD Head CT 10/20/16 0000 Signed Impressions: Service Date/Time: Thursday, October 20, 2016 03:40 - CONCLUSION: 1. No evidence of acute intracranial pathology. No masses are identified. 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 Micha Wallace MD Abdomen X-Ray 10/20/16 0000 Signed Impressions: Service Date/Time: Thursday, October 20, 2016 12:03 - CONCLUSION: Nonspecific bowel gas. Maximiliano Nielsen MD FACR Objective Remarks General: No acute distress. Heart: Regular rate and rhythm. No murmur. Lungs: Clear to auscultation bilaterally. No wheezes, rales, or rhonchi. Breathing is nonlabored. Abdomen: Soft, nontender, nondistended. Extremities: No lower extremity edema. Left-sided weakness is noted. Psych: Alert and oriented 3. 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 Sepsis secondary to strep pneumoniae meningitis: Appreciate infectious disease recommendations. Continue antibiotics (Penicillin G x 6 weeks; Gentamicin 2 week course completed). Follow labs, cultures. Still having low- grade fevers. 2. Toxic metabolic encephalopathy: Monitor neuro status. Appreciate neurology recommendations. Monitor for alcohol withdrawal. EEG on 10/20/16 showed severe encephalopathy. Continue Thiamine, Folate. 3. Respiratory insufficiency: Continue supplemental oxygen as needed. DuoNeb scheduled and as needed. 4. Endocarditis: ROSIBEL on 10/22/16 showed aortic vegetations, EF 55%. Continue antibiotics. Appreciate ID recommendations. 5. Dehydration: Resolved. 6. Elevated LFTs: Trending down. Liver ultrasound shows fatty liver, multiple gallstones, mildly thickened gallbladder wall. 7. Diabetes mellitus: Monitor accuchecks and cover with sliding scale insulin. Glucose has remained elevated. Start Levemir. 8. GI Prophylaxis: Protonix. 9. DVT prophylaxis: Heparin, SCDs. 10. Nadine in urine: Continue Diflucan. Discharge Planning Patient will need rehab at discharge. Case management assisting with discharge planning. Patient is SSI pending, so no payor for home health or outpatient antibiotics. Josh Amanda MD Nov 09, 2016 10:49
[2016-11-09 12:00] VITALS: BP 125/84; PULSE 87; RESP 20; TEMP 99.3; O2SAT 95
[2016-11-09 16:00] VITALS: BP 127/78; PULSE 84; RESP 20; TEMP 98.8; O2SAT 97
[2016-11-09 20:00] VITALS: BP 133/77; PULSE 110; RESP 20; TEMP 100; O2SAT 97
[2016-11-09] MEDS: INSULIN DETEMIR 100 UNITS/ML VIAL SQ SCH (21:31)
[2016-11-09] MEDS: GENTAMICIN INJ 275 MG in SODIUM CHLORIDE 0.9% INJ 100 ML IV SCH (21:32)
[2016-11-09] MEDS: ACETAMINOPHEN 325 MG TAB PO PRN (21:49)
[2016-11-10] VITALS: BP 112/74; PULSE 82; RESP 20; TEMP 97.6; O2SAT 95
[2016-11-10] MEDS: PENICILLIN G SODIUM INJ 4,000,000 UNITS in SODIUM CHLORIDE 0.9% INJ 100 ML IV SCH (01:41)
[2016-11-10 04:00] VITALS: BP 121/67; PULSE 82; RESP 20; TEMP 98.8; O2SAT 94
[2016-11-10] MEDS: CHLORHEXIDINE GLUCONATE 2 % 1 PACK (2 CLOTHS) TOP SCH (04:00)
[2016-11-10] MEDS: PENICILLIN G POTASSIUM INJ 4,000,000 UNITS in SODIUM CHLORIDE 0.9% INJ 100 ML IV SCH ×5 (05:34→22:14)
[2016-11-10] MEDS: HEPARIN SODIUM - SQ 10,000 UNITS/ML VIAL SQ SCH ×2 (05:34→17:11)
[2016-11-10] MEDS: SODIUM CHLORIDE 0.9% FLUSH 5 ML FLUSH IV FLUSH PRN (05:35)
[2016-11-10] MEDS: ACETAMINOPHEN/HYDROcodone 325 MG/5 MG TAB PO PRN ×4 (05:35→22:15)
[2016-11-10] MEDS: INSULIN ASPART SUPPLEMENTAL SCALE SQ SCH ×4 (05:47→21:00)
[2016-11-10 08:00] VITALS: BP 135/71; PULSE 92; RESP 24; TEMP 97.8; O2SAT 92
[2016-11-10 08:42] LABS: AUTOMATED NEUTROPHIL # 9.3 TH/MM3 (1.8-7.7); BASOPHIL # 0.1 TH/MM3 (0-0.2); EOSINOPHIL # 0.2 TH/MM3 (0-0.4); EOSINOPHIL % 1.6 % (0.0-4.0); HEMATOCRIT 31.9 % (39.0-51.0); HEMO FLAGS DIFF FINAL; LYMPH % 13.8 % (9.0-44.0); LYMPHOCYTE # 1.7 TH/MM3 (1.0-4.8); MEAN CELL VOLUME 96.5 FL (80.0-100.0); MEAN CORPUSCULAR HGB CONC 34.2 % (32.0-36.0); MONO % 6.5 % (0.0-8.0); NEUT % 77.1 % (16.0-70.0); PLATELET COUNT 426 TH/MM3 (150-450); RED BLOOD COUNT 3.31 MIL/MM3 (4.50-5.90); RED CELL DISTRIBUTION WIDTH 13.3 % (11.6-17.2); WHITE BLOOD COUNT 12.1 TH/MM3 (4.0-11.0)
[2016-11-10] MEDS: ASPIRIN 81 MG CHEW TAB CHEW SCH (09:00)
[2016-11-10 09:12] LABS: BICARBONATE 29.1 MEQ/L (21.0-32.0); POTASSIUM 4.4 MEQ/L (3.5-5.1)
[2016-11-10] MEDS: SENNOSIDES 8.6 MG TAB PO SCH (09:58)
[2016-11-10] MEDS: FLUCONAZOLE 100 MG TAB PO SCH (09:58)
[2016-11-10] MEDS: DOCUSATE SODIUM 100 MG CAP PO SCH ×2 (09:58→22:15)
[2016-11-10] MEDS: DILTIAZEM HCL 60 MG TAB PO SCH ×4 (09:58→22:14)
[2016-11-10] MEDS: THIAMINE HCL 100 MG TAB PO SCH (09:58)
[2016-11-10] MEDS: FOLIC ACID 1 MG TAB PO SCH (09:58)
[2016-11-10] MEDS: PANTOPRAZOLE SODIUM 40 MG VIAL IV SCH (09:59)
[2016-11-10] MEDS: SODIUM CHLORIDE 0.9% FLUSH 5 ML FLUSH IV FLUSH SCH ×2 (09:59→21:00)
[2016-11-10] MEDS: INSULIN DETEMIR 100 UNITS/ML VIAL SQ SCH ×2 (10:00→21:00)
--- NOTE | 2016-11-10 11:26 | HHI.PR ---
Subjective Remarks Follow up fever, leukocytosis, encephalopathy. [id number] hour T max 100.0. Patient has left sided weakness/paralysis requesting to go home feels that he can manage and reports he has friends who will help him. Denies SOB, chest pain , N/V/D/C fevers of chills. Objective Vitals Vital Signs Date Time Temp Pulse Resp B/P Pulse Ox O2 Delivery O2 Flow Rate FiO2 11/10/16 08:00 97.8 92 24 135/71 92 11/10/16 04:00 98.8 82 20 121/67 94 11/10/16 00:00 97.6 82 20 112/74 95 11/09/16 20:00 100.0 110 20 133/77 97 11/09/16 16:00 98.8 84 20 127/78 97 11/09/16 12:00 99.3 87 20 125/84 95 I/O 11/09/16 11/09/16 11/09/16 11/10/16 11/10/16 11/10/16 07:00 15:00 23:00 07:00 15:00 23:00 Intake Total 720 ml 480 ml 960 ml Output Total 1450 ml 1000 ml 800 ml 1600 ml 470 ml Balance -1450 ml -280 ml -320 ml -640 ml -470 ml Intake Oral 720 ml 480 ml 960 ml Output Urine Total 1450 ml 1000 ml 800 ml 1600 ml 470 ml # Bowel Movements 0 1 0 0 Result Diagram: 11/10/16 0735 11/10/16 0735 Objective Remarks General: No acute distress. Heart: Regular rate and rhythm. No murmur. Lungs: Clear to auscultation bilaterally. No wheezes, rales, or rhonchi. Breathing is nonlabored. Abdomen: Soft, nontender, nondistended. Extremities: No lower extremity edema. Left-sided weakness is noted. Psych: Alert and oriented 3. 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 Sepsis secondary to strep pneumoniae meningitis: Appreciate infectious disease recommendations. Continue antibiotics (Penicillin G x 6 weeks; Gentamicin 2 week course completed). Follow labs, cultures. Still having low- grade fevers. 2. Toxic metabolic encephalopathy: Monitor neuro status. Appreciate neurology recommendations. Monitor for alcohol withdrawal. EEG on 10/20/16 showed severe encephalopathy. Continue Thiamine, Folate. 3. Respiratory insufficiency: Continue supplemental oxygen as needed. DuoNeb scheduled and as needed. 4. Endocarditis: ROSIBEL on 10/22/16 showed aortic vegetations, EF 55%. Continue antibiotics. Appreciate ID recommendations. 5. Dehydration: Resolved. 6. Elevated LFTs: Trending down. Liver ultrasound shows fatty liver, multiple gallstones, mildly thickened gallbladder wall. 7. Diabetes mellitus: Monitor accuchecks and cover with sliding scale insulin. Glucose has remained elevated. Start Levemir 5 Units Q12 H 11/09/2016 PM- blood glucose still running on the high side continue to monitor 8. GI Prophylaxis: Protonix. 9. DVT prophylaxis: Heparin, SCDs. 10. Nadine in urine: Continue Diflucan. 11. Hyponatremia: fluid restriction 1.5L recheck BMP in AM Discharge Planning Patient will need rehab at discharge. Case management assisting with discharge planning. Patient is SSI pending, so no payor for home health or outpatient antibiotics. Written by Jerri Fox, acting as scribe for Dr. Amanda on 11/10/16 at 11:25. Attending Statement The documentation accurately reflects the work performed [id number] by me on at 1125. Jerri Fox Nov 10, 2016 11:26 Josh Amanda MD Nov 10, 2016 12:41
[2016-11-10 12:00] VITALS: BP 127/75; PULSE 85; RESP 20; TEMP 98.2; O2SAT 92
[2016-11-10 16:00] VITALS: BP 136/79; PULSE 88; RESP 20; TEMP 98.5; O2SAT 95
[2016-11-10 20:00] VITALS: BP 135/80; PULSE 101; RESP 22; TEMP 98.6; O2SAT 94
[2016-11-10] MEDS: GENTAMICIN INJ 275 MG in SODIUM CHLORIDE 0.9% INJ 100 ML IV SCH (22:14)
[2016-11-11] VITALS: BP 136/87; PULSE 84; RESP 20; TEMP 97; O2SAT 93
[2016-11-11] MEDS: PENICILLIN G POTASSIUM INJ 4,000,000 UNITS in SODIUM CHLORIDE 0.9% INJ 100 ML IV SCH ×6 (02:00→21:44)
[2016-11-11 04:00] VITALS: BP 120/97; PULSE 91; RESP 20; TEMP 97.3; O2SAT 95
[2016-11-11] MEDS: CHLORHEXIDINE GLUCONATE 2 % 1 PACK (2 CLOTHS) TOP SCH (04:00)
[2016-11-11] MEDS: HEPARIN SODIUM - SQ 10,000 UNITS/ML VIAL SQ SCH ×2 (04:49→16:46)
[2016-11-11] MEDS: ACETAMINOPHEN/HYDROcodone 325 MG/5 MG TAB PO PRN ×4 (04:50→21:37)
[2016-11-11] MEDS: INSULIN ASPART SUPPLEMENTAL SCALE SQ SCH ×4 (07:00→21:00)
[2016-11-11 08:00] VITALS: BP 119/86; PULSE 89; RESP 18; TEMP 98.1; O2SAT 95
[2016-11-11] MEDS: SENNOSIDES 8.6 MG TAB PO SCH (09:24)
[2016-11-11] MEDS: FOLIC ACID 1 MG TAB PO SCH (09:24)
[2016-11-11] MEDS: DOCUSATE SODIUM 100 MG CAP PO SCH ×2 (09:24→21:37)
[2016-11-11] MEDS: ASPIRIN 81 MG CHEW TAB CHEW SCH (09:24)
[2016-11-11] MEDS: SODIUM CHLORIDE 0.9% FLUSH 5 ML FLUSH IV FLUSH SCH ×2 (09:24→21:00)
[2016-11-11] MEDS: THIAMINE HCL 100 MG TAB PO SCH (09:24)
[2016-11-11] MEDS: INSULIN DETEMIR 100 UNITS/ML VIAL SQ SCH ×2 (09:24→21:00)
[2016-11-11] MEDS: FLUCONAZOLE 100 MG TAB PO SCH (09:24)
[2016-11-11] MEDS: DILTIAZEM HCL 60 MG TAB PO SCH ×4 (09:24→21:37)
[2016-11-11] MEDS: PANTOPRAZOLE SODIUM 40 MG VIAL IV SCH (09:24)
[2016-11-11 10:35] LABS: AUTOMATED NEUTROPHIL # 8.3 TH/MM3 (1.8-7.7); BASOPHIL # 0.1 TH/MM3 (0-0.2); BASOPHIL % 0.8 % (0.0-2.0); EOSINOPHIL # 0.1 TH/MM3 (0-0.4); EOSINOPHIL % 1.1 % (0.0-4.0); HEMATOCRIT 35.1 % (39.0-51.0); HEMO FLAGS DIFF FINAL; LYMPH % 16.9 % (9.0-44.0); LYMPHOCYTE # 1.9 TH/MM3 (1.0-4.8); MEAN CELL VOLUME 96.6 FL (80.0-100.0); MEAN CORPUSCULAR HEMOGLOBIN 32.3 PG (27.0-34.0); MEAN CORPUSCULAR HGB CONC 33.4 % (32.0-36.0); MONO % 6.5 % (0.0-8.0); NEUT % 74.7 % (16.0-70.0); PLATELET COUNT 480 TH/MM3 (150-450); RED BLOOD COUNT 3.63 MIL/MM3 (4.50-5.90); RED CELL DISTRIBUTION WIDTH 13.7 % (11.6-17.2); WHITE BLOOD COUNT 11.1 TH/MM3 (4.0-11.0)
[2016-11-11 11:04] LABS: POTASSIUM 4.2 MEQ/L (3.5-5.1)
[2016-11-11 11:56] VITALS: BP 137/87; PULSE 90; RESP 19; TEMP 99; O2SAT 95
--- NOTE | 2016-11-11 13:37 | HHI.PR ---
Subjective Remarks Follow up fever, leukocytosis, encephalopathy. Patient still reporting back pain , which he states is 10/10 almost all the time. He does appear to be resting comfortably during my examination. No other complaints at this time. Objective Vitals Vital Signs Date Time Temp Pulse Resp B/P Pulse Ox O2 Delivery O2 Flow Rate FiO2 11/11/16 11:56 99.0 90 19 137/87 95 11/11/16 08:00 98.1 89 18 119/86 95 11/11/16 04:00 97.3 91 20 120/97 95 11/11/16 00:00 97.0 84 20 136/87 93 11/10/16 20:00 98.6 101 22 135/80 94 11/10/16 16:00 98.5 88 20 136/79 95 I/O 11/10/16 11/10/16 11/10/16 11/11/16 11/11/16 11/11/16 07:00 15:00 23:00 07:00 15:00 23:00 Intake Total 960 ml 600 ml 350 ml Output Total 1600 ml 1695 ml 520 ml 1000 ml 320 ml Balance -640 ml -1095 ml -520 ml -1000 ml 30 ml Intake Oral 960 ml 600 ml 350 ml Output Urine Total 1600 ml 1695 ml 520 ml 1000 ml 320 ml # Voids 4 # Bowel Movements 0 0 0 Result Diagram: 11/11/16 0903 11/11/16 0903 Imaging Last Impressions Chest X-Ray 11/06/16 0000 Signed Impressions: Service Date/Time: November 08:38 - CONCLUSION: Left basilar density likely atelectasis. Elevation left hemidiaphragm. Gatito Abbott MD Foot X-Ray 11/05/16 0000 Signed Impressions: Service Date/Time: Saturday, November 05, 2016 18:02 - CONCLUSION: No acute disease. Julien Lopez MD Brain MRI 10/29/16 0000 Signed Impressions: Service Date/Time: Saturday, October 29, 2016 14:32 - CONCLUSION: Stable MRI of the brain. Findings consistent with right basal ganglion and thalamic subacute infarct. Chase Henry MD Chest CT 10/28/16 0000 Signed Impressions: Service Date/Time: Friday, October 28, 2016 16:51 - CONCLUSION: 1. Bibasilar consolidation. I'm concerned these could relate to infectious infiltrates. Atelectasis is felt less likely. Alex Bass Jr., MD Abdomen/Pelvis CT 10/28/16 0000 Signed Impressions: Service Date/Time: Friday, October 28, 2016 16:51 - CONCLUSION: 1. Nonobstructing bilateral renal calculi. 2. Stable bilateral adrenal nodules. 3. Previous mesh placement. No residual hernias. 4. Diverticulosis without diverticulitis. 5. Slight inflammatory changes adjacent to the right kidney, nonspecific. 6. No abscess. Gatito Abbott MD Liver Ultrasound 10/25/16 0000 Signed Impressions: Service Date/Time: Tuesday, October 25, 2016 19:05 - CONCLUSION: 1. Fatty liver enlarged to 20 cm in length. Multiple gallstones with trace fluid around gallbladder wall which is mildly thickened at 4 mm. No biliary ductal dilatation. Clifton Watson MD Lumbar Puncture Fluoroscopy 10/21/16 0000 Signed Impressions: Service Date/Time: Friday, October 21, 2016 15:20 - CONCLUSION: Uncomplicated fluoroscopically guided lumbar puncture with pressures as above. 12 cc of pus was collected and sent to the lab. Dr. Reid was notified. Melvin Nielsen MD Head CT 10/20/16 0000 Signed Impressions: Service Date/Time: Thursday, October 20, 2016 03:40 - CONCLUSION: 1. No evidence of acute intracranial pathology. No masses are identified. 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 Micha Wallace MD Abdomen X-Ray 10/20/16 0000 Signed Impressions: Service Date/Time: Thursday, October 20, 2016 12:03 - CONCLUSION: Nonspecific bowel gas. Maximiliano Nielsen MD FACR Objective Remarks General: No acute distress. Heart: Regular rate and rhythm. No murmur. Lungs: Clear to auscultation bilaterally. No wheezes, rales, or rhonchi. Breathing is nonlabored. Abdomen: Soft, nontender, nondistended. Extremities: No lower extremity edema. Left-sided weakness is noted. Psych: Alert and oriented 3. 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 Sepsis secondary to strep pneumoniae meningitis: Appreciate infectious disease recommendations. Continue antibiotics (Penicillin G x 6 weeks; Gentamicin 2 week course completed). Follow labs, cultures. Afebrile overnight. Discussed with Dr. Reid. 2. Toxic metabolic encephalopathy: Monitor neuro status. Appreciate neurology recommendations. Monitor for alcohol withdrawal. EEG on 10/20/16 showed severe encephalopathy. Continue Thiamine, Folate. 3. Respiratory insufficiency: Continue supplemental oxygen as needed. DuoNeb scheduled and as needed. 4. Endocarditis: ROSIBEL on 10/22/16 showed aortic vegetations, EF 55%. Continue antibiotics. Appreciate ID recommendations. 5. Dehydration: Resolved. 6. Elevated LFTs: Trending down. Liver ultrasound shows fatty liver, multiple gallstones, mildly thickened gallbladder wall. 7. Diabetes mellitus: Monitor accuchecks and cover with sliding scale insulin. Glucose has remained elevated. Continue Levemir. 8. GI Prophylaxis: Protonix. 9. DVT prophylaxis: Heparin, SCDs. 10. Nadine in urine: Continue Diflucan. 11. Hyponatremia: fluid restriction 1.5L recheck BMP in AM Avoid Potassium supplementation due to potassium in Penicillin G. Discharge Planning Patient has no funding for outpatient IV antibiotics, rehabilitation. Can be transferred to [facility] if a bed is available. Josh Amanda MD Nov 11, 2016 13:37
[2016-11-11 14:00] VITALS: BP 134/83; PULSE 88; RESP 18; TEMP 99; O2SAT 95
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
[2016-11-11 20:03] VITALS: BP 124/82; PULSE 96; RESP 18; TEMP 98; O2SAT 94
[2016-11-12 00:01] VITALS: BP 122/76; PULSE 102; RESP 20; TEMP 99.9; O2SAT 93
[2016-11-12] MEDS: PENICILLIN G POTASSIUM INJ 4,000,000 UNITS in SODIUM CHLORIDE 0.9% INJ 100 ML IV SCH ×6 (02:00→21:20)
[2016-11-12] MEDS: CHLORHEXIDINE GLUCONATE 2 % 1 PACK (2 CLOTHS) TOP SCH (04:00)
[2016-11-12 04:20] VITALS: BP 126/76; PULSE 91; RESP 20; TEMP 97.6; O2SAT 95
[2016-11-12] MEDS: ACETAMINOPHEN/HYDROcodone 325 MG/5 MG TAB PO PRN ×4 (05:22→21:21)
[2016-11-12] MEDS: HEPARIN SODIUM - SQ 10,000 UNITS/ML VIAL SQ SCH ×2 (05:22→16:49)
[2016-11-12] MEDS: INSULIN ASPART SUPPLEMENTAL SCALE SQ SCH ×4 (07:00→21:20)
[2016-11-12 08:17] VITALS: BP 116/83; PULSE 94; RESP 18; TEMP 99.6; O2SAT 99
[2016-11-12] MEDS: THIAMINE HCL 100 MG TAB PO SCH (09:38)
[2016-11-12] MEDS: FOLIC ACID 1 MG TAB PO SCH (09:38)
[2016-11-12] MEDS: ASPIRIN 81 MG CHEW TAB CHEW SCH (09:38)
[2016-11-12] MEDS: SENNOSIDES 8.6 MG TAB PO SCH (09:38)
[2016-11-12] MEDS: FLUCONAZOLE 100 MG TAB PO SCH (09:38)
[2016-11-12] MEDS: DOCUSATE SODIUM 100 MG CAP PO SCH ×2 (09:38→21:19)
[2016-11-12] MEDS: INSULIN DETEMIR 100 UNITS/ML VIAL SQ SCH ×2 (09:38→21:19)
[2016-11-12] MEDS: DILTIAZEM HCL 60 MG TAB PO SCH ×4 (09:38→21:19)
[2016-11-12] MEDS: SODIUM CHLORIDE 0.9% FLUSH 5 ML FLUSH IV FLUSH SCH ×2 (09:39→21:20)
[2016-11-12] MEDS: PANTOPRAZOLE SODIUM 40 MG VIAL IV SCH (09:40)
--- NOTE | 2016-11-12 10:17 | HHI.PR ---
Subjective Remarks Left arm with the same deficit. Says left leg is improving. no new motor/ sensory deficit. No fever or chills. Eating well. No n/v/d/c. Objective Vitals Vital Signs Date Time Temp Pulse Resp B/P Pulse Ox O2 Delivery O2 Flow Rate FiO2 11/12/16 08:17 99.6 94 18 116/83 99 11/12/16 04:20 97.6 91 20 126/76 95 11/12/16 00:01 99.9 102 20 122/76 93 11/11/16 20:03 98.0 96 18 124/82 94 11/11/16 14:00 99.0 88 18 134/83 95 11/11/16 11:56 99.0 90 19 137/87 95 I/O 11/11/16 11/11/16 11/11/16 11/12/16 11/12/16 11/12/16 07:00 15:00 23:00 07:00 15:00 23:00 Intake Total 350 ml 240 ml 240 ml Output Total 1000 ml 320 ml 1000 ml 1300 ml Balance -1000 ml 30 ml -760 ml -1060 ml Intake Oral 350 ml 240 ml 240 ml Output Urine Total 1000 ml 320 ml 1000 ml 1300 ml # Voids 4 # Bowel Movements 0 Result Diagram: 11/11/16 0903 11/11/16 0903 Imaging Last Impressions Chest X-Ray 11/06/16 0000 Signed Impressions: Service Date/Time: November 08:38 - CONCLUSION: Left basilar density likely atelectasis. Elevation left hemidiaphragm. Gatito Abbott MD Foot X-Ray 11/05/16 0000 Signed Impressions: Service Date/Time: Saturday, November 05, 2016 18:02 - CONCLUSION: No acute disease. Julien Lopez MD Brain MRI 10/29/16 0000 Signed Impressions: Service Date/Time: Saturday, October 29, 2016 14:32 - CONCLUSION: Stable MRI of the brain. Findings consistent with right basal ganglion and thalamic subacute infarct. Chase Henry MD Chest CT 10/28/16 0000 Signed Impressions: Service Date/Time: Friday, October 28, 2016 16:51 - CONCLUSION: 1. Bibasilar consolidation. I'm concerned these could relate to infectious infiltrates. Atelectasis is felt less likely. Alex Bass Jr., MD Abdomen/Pelvis CT 10/28/16 0000 Signed Impressions: Service Date/Time: Friday, October 28, 2016 16:51 - CONCLUSION: 1. Nonobstructing bilateral renal calculi. 2. Stable bilateral adrenal nodules. 3. Previous mesh placement. No residual hernias. 4. Diverticulosis without diverticulitis. 5. Slight inflammatory changes adjacent to the right kidney, nonspecific. 6. No abscess. Gatito Abbott MD Liver Ultrasound 10/25/16 0000 Signed Impressions: Service Date/Time: Tuesday, October 25, 2016 19:05 - CONCLUSION: 1. Fatty liver enlarged to 20 cm in length. Multiple gallstones with trace fluid around gallbladder wall which is mildly thickened at 4 mm. No biliary ductal dilatation. Clifton Watson MD Lumbar Puncture Fluoroscopy 10/21/16 0000 Signed Impressions: Service Date/Time: Friday, October 21, 2016 15:20 - CONCLUSION: Uncomplicated fluoroscopically guided lumbar puncture with pressures as above. 12 cc of pus was collected and sent to the lab. Dr. Reid was notified. Melvin Nielsen MD Head CT 10/20/16 0000 Signed Impressions: Service Date/Time: Thursday, October 20, 2016 03:40 - CONCLUSION: 1. No evidence of acute intracranial pathology. No masses are identified. 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 Micha Wallace MD Abdomen X-Ray 10/20/16 0000 Signed Impressions: Service Date/Time: Thursday, October 20, 2016 12:03 - CONCLUSION: Nonspecific bowel gas. Maximiliano Nielsen MD FACR Objective Remarks GENERAL: 51 yo ill-appearing male lying in bed. Left hemiplegia SKIN: Warm and dry. HEAD: Atraumatic. Normocephalic. EYES: Pupils equal and round, 2 mm. No scleral icterus, or nystagmus. No injection or drainage. ENT: No nasal bleeding or discharge. Mucous membranes pink and moist. NECK: Trachea midline. No JVD. CARDIOVASCULAR: Regular rate, and regular rhythm. RESPIRATORY: Breath sounds equal bilaterally. No wheezes or crackles today GASTROINTESTINAL: Abdomen soft, non-tender, nondistended. No guarding. Well- healed midline abdominal scar MUSCULOSKELETAL: No obvious deformities. NEUROLOGICAL: Pt wakes up following commands right upper and lower extremity, hemiplegic on the left side. 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 Continue antibiotics per ID recommendations. Follow labs, cultures. ID consulted, Dr. Reid appreciate recommendations: Continue Penicillin G 24 million units per day in divided doses will need 6 wks IV (tentative stop date: 12/02/2016) CBC with diff, CMP, CRP once a week to be ordered by hospitalist. Please call if any abnormal labs or change in clinical condition. DC Gentamicin for synergy completed 2 weeks Toxic metabolic encephalopathy Right Subacute basal ganglia infarct, with L hemiplegia Monitor neuro status. Appreciate neurology recommendations. Monitor for alcohol withdrawal. EEG on showed severe encephalopathy. Continue Thiamine, Folate. Respiratory insufficiency: Continue supplemental oxygen as needed. DuoNeb scheduled and as needed. Endocarditis: ROSIBEL on 10/22/16 showed aortic vegetations, EF 55%. Continue antibiotics. Appreciate ID recommendations. Dehydration: Resolved. Elevated LFTs: Trending down. Liver ultrasound shows fatty liver, multiple gallstones, mildly thickened gallbladder wall. Diabetes mellitus 2, uncontrolled, A1c 7.1 : Monitor accuchecks and cover with sliding scale insulin. Glucose has remained elevated. Continue Levemir. Nadine in urine: Continue Diflucan. Hyponatremia: fluid restriction 1.5L. Monitor BMP in AM GI Prophylaxis: Protonix. DVT prophylaxis: Heparin, SCDs. Note: Avoid Potassium supplementation due to potassium in Penicillin G. Discharge Planning Patient has no funding for outpatient IV antibiotics, rehabilitation. Can be transferred to [place] if a bed is available. Discussed with the patient, nurse Camila Matthews MD Nov 12, 2016 10:17
[2016-11-12 11:46] VITALS: BP 130/85; PULSE 92; RESP 18; TEMP 98.4; O2SAT 96
[2016-11-12 14:30] VITALS: BP 138/80; PULSE 69; RESP 18; TEMP 98.6; O2SAT 97
[2016-11-12 20:00] VITALS: BP 138/96; PULSE 103; RESP 24; TEMP 99.6; O2SAT 96
[2016-11-13] VITALS: BP 137/78; PULSE 95; RESP 22; TEMP 97.2; O2SAT 96
[2016-11-13] MEDS: PENICILLIN G POTASSIUM INJ 4,000,000 UNITS in SODIUM CHLORIDE 0.9% INJ 100 ML IV SCH ×6 (02:50→21:07)
[2016-11-13] MEDS: HEPARIN SODIUM - SQ 10,000 UNITS/ML VIAL SQ SCH ×2 (02:50→16:57)
[2016-11-13] MEDS: ACETAMINOPHEN/HYDROcodone 325 MG/5 MG TAB PO PRN ×3 (03:14→21:09)
[2016-11-13 04:00] VITALS: BP 129/88; PULSE 90; RESP 18; TEMP 98.8; O2SAT 94
[2016-11-13] MEDS: CHLORHEXIDINE GLUCONATE 2 % 1 PACK (2 CLOTHS) TOP SCH (04:00)
[2016-11-13] MEDS: INSULIN ASPART SUPPLEMENTAL SCALE SQ SCH ×4 (05:43→21:07)
[2016-11-13 08:30] VITALS: BP 141/90; PULSE 87; RESP 20; TEMP 97.3; O2SAT 97
[2016-11-13] MEDS: SODIUM CHLORIDE 0.9% FLUSH 5 ML FLUSH IV FLUSH SCH ×2 (09:00→21:08)
[2016-11-13] MEDS: DILTIAZEM HCL 60 MG TAB PO SCH ×4 (09:50→21:06)
[2016-11-13] MEDS: ASPIRIN 81 MG CHEW TAB CHEW SCH (09:50)
[2016-11-13] MEDS: PANTOPRAZOLE SODIUM 40 MG VIAL IV SCH (09:50)
[2016-11-13] MEDS: FOLIC ACID 1 MG TAB PO SCH (09:50)
[2016-11-13] MEDS: SENNOSIDES 8.6 MG TAB PO SCH (09:50)
[2016-11-13] MEDS: FLUCONAZOLE 100 MG TAB PO SCH (09:50)
[2016-11-13] MEDS: DOCUSATE SODIUM 100 MG CAP PO SCH ×2 (09:50→21:06)
[2016-11-13] MEDS: THIAMINE HCL 100 MG TAB PO SCH (09:50)
[2016-11-13] MEDS: INSULIN DETEMIR 100 UNITS/ML VIAL SQ SCH ×2 (09:51→21:07)
[2016-11-13 13:09] VITALS: BP 121/76; PULSE 103; RESP 20; TEMP 98.3; O2SAT 94
--- NOTE | 2016-11-13 13:53 | HHI.PR ---
Subjective Remarks Eating. Appears in nad. Says he is moving his left leg more, not moving his left arm. No fever or chills. Speech is not back to baseline. No n/v/d/c. No fever or chills. No new motor/sensory deficit. Objective Vitals Vital Signs Date Time Temp Pulse Resp B/P Pulse Ox O2 Delivery O2 Flow Rate FiO2 11/13/16 13:09 98.3 103 20 121/76 94 11/13/16 08:30 97.3 87 20 141/90 97 11/13/16 04:00 98.8 90 18 129/88 94 11/13/16 00:00 97.2 95 22 137/78 96 11/12/16 20:00 99.6 103 24 138/96 96 11/12/16 14:30 98.6 69 18 138/80 97 I/O 11/12/16 11/12/16 11/12/16 11/13/16 11/13/16 11/13/16 07:00 15:00 23:00 07:00 15:00 23:00 Intake Total 240 ml 700 ml 1122 ml Output Total 1300 ml 700 ml 300 ml Balance -1060 ml 700 ml 422 ml -300 ml Intake Oral 240 ml 700 ml 700 ml IV Total 422 ml Output Urine Total 1300 ml 700 ml 300 ml # Voids 3 # Bowel Movements 1 Result Diagram: 11/11/16 0903 11/13/16 0706 Imaging Last Impressions Chest X-Ray 11/06/16 0000 Signed Impressions: Service Date/Time: November 08:38 - CONCLUSION: Left basilar density likely atelectasis. Elevation left hemidiaphragm. Gatito Abbott MD Foot X-Ray 11/05/16 0000 Signed Impressions: Service Date/Time: Saturday, November 05, 2016 18:02 - CONCLUSION: No acute disease. Julien Lopez MD Brain MRI 10/29/16 0000 Signed Impressions: Service Date/Time: Saturday, October 29, 2016 14:32 - CONCLUSION: Stable MRI of the brain. Findings consistent with right basal ganglion and thalamic subacute infarct. Chase Henry MD Chest CT 10/28/16 0000 Signed Impressions: Service Date/Time: Friday, October 28, 2016 16:51 - CONCLUSION: 1. Bibasilar consolidation. I'm concerned these could relate to infectious infiltrates. Atelectasis is felt less likely. Alex Bass Jr., MD Abdomen/Pelvis CT 10/28/16 0000 Signed Impressions: Service Date/Time: Friday, October 28, 2016 16:51 - CONCLUSION: 1. Nonobstructing bilateral renal calculi. 2. Stable bilateral adrenal nodules. 3. Previous mesh placement. No residual hernias. 4. Diverticulosis without diverticulitis. 5. Slight inflammatory changes adjacent to the right kidney, nonspecific. 6. No abscess. Gatito Abbott MD Liver Ultrasound 10/25/16 0000 Signed Impressions: Service Date/Time: Tuesday, October 25, 2016 19:05 - CONCLUSION: 1. Fatty liver enlarged to 20 cm in length. Multiple gallstones with trace fluid around gallbladder wall which is mildly thickened at 4 mm. No biliary ductal dilatation. Clifton Watson MD Lumbar Puncture Fluoroscopy 10/21/16 0000 Signed Impressions: Service Date/Time: Friday, October 21, 2016 15:20 - CONCLUSION: Uncomplicated fluoroscopically guided lumbar puncture with pressures as above. 12 cc of pus was collected and sent to the lab. Dr. Reid was notified. Melvin Nielsen MD Head CT 10/20/16 0000 Signed Impressions: Service Date/Time: Thursday, October 20, 2016 03:40 - CONCLUSION: 1. No evidence of acute intracranial pathology. No masses are identified. 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 Micha Wallace MD Abdomen X-Ray 10/20/16 0000 Signed Impressions: Service Date/Time: Thursday, October 20, 2016 12:03 - CONCLUSION: Nonspecific bowel gas. Maximiliano Nielsen MD FACR Objective Remarks GENERAL: 51 yo ill-appearing male lying in bed. Left hemiplegia SKIN: Warm and dry. HEAD: Atraumatic. Normocephalic. EYES: Pupils equal and round, 2 mm. No scleral icterus, or nystagmus. No injection or drainage. ENT: No nasal bleeding or discharge. Mucous membranes pink and moist. NECK: Trachea midline. No JVD. CARDIOVASCULAR: Regular rate, and regular rhythm. RESPIRATORY: Breath sounds equal bilaterally. No wheezes or crackles today GASTROINTESTINAL: Abdomen soft, non-tender, nondistended. No guarding. Well- healed midline abdominal scar MUSCULOSKELETAL: No obvious deformities. NEUROLOGICAL: Pt wakes up following commands right upper and lower extremity, hemiplegic on the left side. 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 Continue antibiotics per ID recommendations. Follow labs, cultures. ID consulted, Dr. Reid appreciate recommendations: Continue Penicillin G 24 million units per day in divided doses will need 6 wks IV (tentative stop date: 12/02/2016) CBC with diff, CMP, CRP once a week to be ordered by hospitalist. Please call if any abnormal labs or change in clinical condition. DC Gentamicin for synergy completed 2 weeks Toxic metabolic encephalopathy Right Subacute basal ganglia infarct, with L hemiplegia Monitor neuro status. Appreciate neurology recommendations. Monitor for alcohol withdrawal. EEG on showed severe encephalopathy. Continue Thiamine, Folate. Respiratory insufficiency: Continue supplemental oxygen as needed. DuoNeb scheduled and as needed. Endocarditis: ROSIBEL on 10/22/16 showed aortic vegetations, EF 55%. Continue antibiotics. Appreciate ID recommendations. Dehydration: Resolved. Elevated LFTs: Trending down. Liver ultrasound shows fatty liver, multiple gallstones, mildly thickened gallbladder wall. Diabetes mellitus 2, uncontrolled, A1c 7.1 : Monitor accuchecks and cover with sliding scale insulin. Glucose has remained elevated. Continue Levemir. Nadine in urine: Continue Diflucan. Hyponatremia: fluid restriction 1.5L. Monitor BMP in AM GI Prophylaxis: Protonix. DVT prophylaxis: Heparin, SCDs. Note: Avoid Potassium supplementation due to potassium in Penicillin G. Discharge Planning Patient has no funding for outpatient IV antibiotics, rehabilitation. Can be transferred to [place] if a bed is available. Discussed with the patient, nurse Camila Matthews MD Nov 13, 2016 13:52
[2016-11-13 16:04] VITALS: BP 120/78; PULSE 97; RESP 14; TEMP 99.3; O2SAT 95
[2016-11-13 20:52] VITALS: BP 135/75; PULSE 102; RESP 16; TEMP 97.6; O2SAT 97
[2016-11-14] VITALS (8 sets, daily range): BP systolic 125–137; BP diastolic 78–92; PULSE 89–99; RESP 16–18; TEMP 97.6–99.6; O2SAT 94–97
[2016-11-14] MEDS: HEPARIN SODIUM - SQ 10,000 UNITS/ML VIAL SQ SCH ×2 (03:56→16:00)
[2016-11-14] MEDS: PENICILLIN G POTASSIUM INJ 4,000,000 UNITS in SODIUM CHLORIDE 0.9% INJ 100 ML IV SCH ×6 (03:57→21:48)
[2016-11-14] MEDS: CHLORHEXIDINE GLUCONATE 2 % 1 PACK (2 CLOTHS) TOP SCH (04:00)
[2016-11-14] MEDS: INSULIN ASPART SUPPLEMENTAL SCALE SQ SCH ×4 (06:26→21:00)
--- NOTE | 2016-11-14 07:46 | HHI.PR ---
Subjective Remarks Patient in bed. No new motor deficit. No n/v/d/c. Says he has wheezing at times. He is satting well on room air. No cough. No fever or chills. Objective Vitals Vital Signs Date Time Temp Pulse Resp B/P Pulse Ox O2 Delivery O2 Flow Rate FiO2 11/14/16 05:29 97.6 89 16 132/84 97 11/14/16 00:19 97.6 94 16 125/78 97 11/13/16 20:52 97.6 102 16 135/75 97 11/13/16 16:04 99.3 97 14 120/78 95 11/13/16 13:09 98.3 103 20 121/76 94 11/13/16 08:30 97.3 87 20 141/90 97 I/O 11/13/16 11/13/16 11/13/16 11/14/16 11/14/16 11/14/16 07:00 15:00 23:00 07:00 15:00 23:00 Intake Total 2008 ml 600 ml Output Total 300 ml 1550 ml 825 ml 1850 ml Balance -300 ml 458 ml -825 ml -1250 ml Intake Oral 1370 ml 600 ml IV Total 638 ml Output Urine Total 300 ml 1550 ml 825 ml 1850 ml # Bowel Movements 1 Result Diagram: 11/11/16 0903 11/13/16 0706 Imaging Last Impressions Chest X-Ray 11/06/16 0000 Signed Impressions: Service Date/Time: November 08:38 - CONCLUSION: Left basilar density likely atelectasis. Elevation left hemidiaphragm. Gatito Abbott MD Foot X-Ray 11/05/16 0000 Signed Impressions: Service Date/Time: Saturday, November 05, 2016 18:02 - CONCLUSION: No acute disease. Julien Lopez MD Brain MRI 10/29/16 0000 Signed Impressions: Service Date/Time: Saturday, October 29, 2016 14:32 - CONCLUSION: Stable MRI of the brain. Findings consistent with right basal ganglion and thalamic subacute infarct. Chase Henry MD Chest CT 10/28/16 0000 Signed Impressions: Service Date/Time: Friday, October 28, 2016 16:51 - CONCLUSION: 1. Bibasilar consolidation. I'm concerned these could relate to infectious infiltrates. Atelectasis is felt less likely. Alex Bass Jr., MD Abdomen/Pelvis CT 10/28/16 0000 Signed Impressions: Service Date/Time: Friday, October 28, 2016 16:51 - CONCLUSION: 1. Nonobstructing bilateral renal calculi. 2. Stable bilateral adrenal nodules. 3. Previous mesh placement. No residual hernias. 4. Diverticulosis without diverticulitis. 5. Slight inflammatory changes adjacent to the right kidney, nonspecific. 6. No abscess. Gatito Abbott MD Liver Ultrasound 10/25/16 0000 Signed Impressions: Service Date/Time: Tuesday, October 25, 2016 19:05 - CONCLUSION: 1. Fatty liver enlarged to 20 cm in length. Multiple gallstones with trace fluid around gallbladder wall which is mildly thickened at 4 mm. No biliary ductal dilatation. Clifton Watson MD Lumbar Puncture Fluoroscopy 10/21/16 0000 Signed Impressions: Service Date/Time: Friday, October 21, 2016 15:20 - CONCLUSION: Uncomplicated fluoroscopically guided lumbar puncture with pressures as above. 12 cc of pus was collected and sent to the lab. Dr. Reid was notified. Melvin Nielsen MD Head CT 10/20/16 0000 Signed Impressions: Service Date/Time: Thursday, October 20, 2016 03:40 - CONCLUSION: 1. No evidence of acute intracranial pathology. No masses are identified. 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 Micha Wallace MD Abdomen X-Ray 10/20/16 0000 Signed Impressions: Service Date/Time: Thursday, October 20, 2016 12:03 - CONCLUSION: Nonspecific bowel gas. Maximiliano Nielsen MD FACR Objective Remarks GENERAL: 51 yo ill-appearing male lying in bed. Left hemiplegia SKIN: Warm and dry. HEAD: Atraumatic. Normocephalic. EYES: Pupils equal and round, 2 mm. No scleral icterus, or nystagmus. No injection or drainage. ENT: No nasal bleeding or discharge. Mucous membranes pink and moist. NECK: Trachea midline. No JVD. CARDIOVASCULAR: Regular rate, and regular rhythm. RESPIRATORY: Breath sounds equal bilaterally. No wheezes or crackles today GASTROINTESTINAL: Abdomen soft, non-tender, nondistended. No guarding. Well- healed midline abdominal scar MUSCULOSKELETAL: No obvious deformities. NEUROLOGICAL: Pt wakes up following commands right upper and lower extremity, hemiplegic on the left side. 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 Continue antibiotics per ID recommendations. Follow labs, cultures. ID consulted, Dr. Reid appreciate recommendations: Continue Penicillin G 24 million units per day in divided doses will need 6 wks IV (tentative stop date: 12/02/2016) CBC with diff, CMP, CRP once a week to be ordered by hospitalist. Please call if any abnormal labs or change in clinical condition. DC Gentamicin for synergy completed 2 weeks Toxic metabolic encephalopathy Right Subacute basal ganglia infarct, with L hemiplegia Monitor neuro status. Appreciate neurology recommendations. Monitor for alcohol withdrawal. EEG on showed severe encephalopathy. Continue Thiamine, Folate. Respiratory insufficiency: Continue supplemental oxygen as needed. DuoNeb scheduled and as needed. Endocarditis: ROSIBEL on 10/22/16 showed aortic vegetations, EF 55%. Continue antibiotics. Appreciate ID recommendations. Dehydration: Resolved. Elevated LFTs: Trending down. Liver ultrasound shows fatty liver, multiple gallstones, mildly thickened gallbladder wall. Diabetes mellitus 2, uncontrolled, A1c 7.1 : Monitor accuchecks and cover with sliding scale insulin. Glucose has remained elevated. Continue Levemir. Nadine in urine: Continue Diflucan. Hyponatremia: fluid restriction 1.5L. Monitor BMP in AM GI Prophylaxis: Protonix. DVT prophylaxis: Heparin, SCDs. Note: Avoid Potassium supplementation due to potassium in Penicillin G. Discharge Planning Patient has no funding for outpatient IV antibiotics, rehabilitation. Can be transferred to [place] if a bed is available. Discussed with the patient, nurse Camila Matthews MD Nov 14, 2016 07:46
[2016-11-14] MEDS: INSULIN DETEMIR 100 UNITS/ML VIAL SQ SCH ×2 (09:00→21:48)
[2016-11-14] MEDS: THIAMINE HCL 100 MG TAB PO SCH (10:40)
[2016-11-14] MEDS: DILTIAZEM HCL 60 MG TAB PO SCH ×4 (10:41→21:48)
[2016-11-14] MEDS: ASPIRIN 81 MG CHEW TAB CHEW SCH (10:41)
[2016-11-14] MEDS: FOLIC ACID 1 MG TAB PO SCH (10:41)
[2016-11-14] MEDS: PANTOPRAZOLE SODIUM 40 MG VIAL IV SCH (10:41)
[2016-11-14] MEDS: DOCUSATE SODIUM 100 MG CAP PO SCH ×2 (10:42→21:48)
[2016-11-14] MEDS: SENNOSIDES 8.6 MG TAB PO SCH (10:42)
[2016-11-14] MEDS: FLUCONAZOLE 100 MG TAB PO SCH (10:42)
[2016-11-14] MEDS: ACETAMINOPHEN/HYDROcodone 325 MG/5 MG TAB PO PRN ×3 (10:42→22:52)
[2016-11-14] MEDS: SODIUM CHLORIDE 0.9% FLUSH 5 ML FLUSH IV FLUSH SCH ×2 (10:43→21:48)
[2016-11-15] MEDS: PENICILLIN G POTASSIUM INJ 4,000,000 UNITS in SODIUM CHLORIDE 0.9% INJ 100 ML IV SCH ×6 (02:05→20:59)
[2016-11-15] MEDS: CHLORHEXIDINE GLUCONATE 2 % 1 PACK (2 CLOTHS) TOP SCH (02:09)
[2016-11-15 04:00] VITALS: BP 144/85; PULSE 85; RESP 19; TEMP 100; O2SAT 97
[2016-11-15] MEDS: ACETAMINOPHEN/HYDROcodone 325 MG/5 MG TAB PO PRN ×4 (05:12→23:00)
[2016-11-15] MEDS: HEPARIN SODIUM - SQ 10,000 UNITS/ML VIAL SQ SCH ×2 (05:12→17:19)
[2016-11-15] MEDS: INSULIN ASPART SUPPLEMENTAL SCALE SQ SCH ×4 (05:13→21:00)
[2016-11-15 08:42] VITALS: BP 143/84; PULSE 89; RESP 17; TEMP 97.9; O2SAT 95
[2016-11-15] MEDS: PANTOPRAZOLE SODIUM 40 MG VIAL IV SCH (08:52)
[2016-11-15] MEDS: FLUCONAZOLE 100 MG TAB PO SCH (08:53)
[2016-11-15] MEDS: DOCUSATE SODIUM 100 MG CAP PO SCH ×2 (08:53→20:59)
[2016-11-15] MEDS: FOLIC ACID 1 MG TAB PO SCH (08:53)
[2016-11-15] MEDS: DILTIAZEM HCL 60 MG TAB PO SCH ×4 (08:53→20:59)
[2016-11-15] MEDS: ASPIRIN 81 MG CHEW TAB CHEW SCH (08:53)
[2016-11-15] MEDS: SENNOSIDES 8.6 MG TAB PO SCH (08:53)
[2016-11-15] MEDS: THIAMINE HCL 100 MG TAB PO SCH (08:53)
[2016-11-15] MEDS: INSULIN DETEMIR 100 UNITS/ML VIAL SQ SCH ×2 (08:54→21:00)
[2016-11-15] MEDS: SODIUM CHLORIDE 0.9% FLUSH 5 ML FLUSH IV FLUSH SCH ×2 (08:54→20:59)
--- NOTE | 2016-11-15 10:39 | HHI.PR ---
Subjective Remarks In nad. Denies cp, sob. No new deficit. No wheezing today. Objective Vitals Vital Signs Date Time Temp Pulse Resp B/P Pulse Ox O2 Delivery O2 Flow Rate FiO2 11/15/16 08:42 97.9 89 17 143/84 95 11/15/16 04:00 100.0 85 19 144/85 97 11/14/16 20:00 97.8 93 18 130/92 97 11/14/16 19:00 97.8 93 18 130/92 97 11/14/16 16:11 99.6 98 18 126/78 94 11/14/16 12:08 98.8 99 18 133/86 96 11/14/16 11:42 15 I/O 11/14/16 11/14/16 11/14/16 11/15/16 11/15/16 11/15/16 07:00 15:00 23:00 07:00 15:00 23:00 Intake Total 600 ml 720 ml 241 ml 233 ml 458 ml Output Total 2850 ml 600 ml 700 ml 1100 ml 325 ml Balance -2250 ml 120 ml -459 ml -867 ml 133 ml Intake Oral 600 ml 720 ml 458 ml IV Total 241 ml 233 ml Output Urine Total 2850 ml 600 ml 700 ml 1100 ml 325 ml # Bowel Movements 1 1 2 Result Diagram: 11/11/16 0903 11/13/16 0706 Objective Remarks GENERAL: 51 yo ill-appearing male lying in bed. Left hemiplegia SKIN: Warm and dry. HEAD: Atraumatic. Normocephalic. EYES: Pupils equal and round, 2 mm. No scleral icterus, or nystagmus. No injection or drainage. ENT: No nasal bleeding or discharge. Mucous membranes pink and moist. NECK: Trachea midline. No JVD. CARDIOVASCULAR: Regular rate, and regular rhythm. RESPIRATORY: Breath sounds equal bilaterally. No wheezes or crackles today GASTROINTESTINAL: Abdomen soft, non-tender, nondistended. No guarding. Well- healed midline abdominal scar MUSCULOSKELETAL: No obvious deformities. NEUROLOGICAL: Pt wakes up following commands right upper and lower extremity, hemiplegic on the left side. 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 Continue antibiotics per ID recommendations. Follow labs, cultures. ID consulted, Dr. Reid appreciate recommendations: Continue Penicillin G 24 million units per day in divided doses will need 6 wks IV (tentative stop date: 12/02/2016) CBC with diff, CMP, CRP once a week to be ordered by hospitalist. Please call if any abnormal labs or change in clinical condition. DC Gentamicin for synergy completed 2 weeks Toxic metabolic encephalopathy Right Subacute basal ganglia infarct, with L hemiplegia Monitor neuro status. Appreciate neurology recommendations. Monitor for alcohol withdrawal. EEG on showed severe encephalopathy. Continue Thiamine, Folate. Respiratory insufficiency: Continue supplemental oxygen as needed. DuoNeb scheduled and as needed. Endocarditis: ROSIBEL on 10/22/16 showed aortic vegetations, EF 55%. Continue antibiotics. Appreciate ID recommendations. Dehydration: Resolved. Elevated LFTs: Trending down. Liver ultrasound shows fatty liver, multiple gallstones, mildly thickened gallbladder wall. Diabetes mellitus 2, uncontrolled, A1c 7.1 : Monitor accuchecks and cover with sliding scale insulin. Glucose has remained elevated. Continue Levemir. Nadine in urine: Continue Diflucan. Hyponatremia: fluid restriction 1.5L. Monitor BMP in AM GI Prophylaxis: Protonix. DVT prophylaxis: Heparin, SCDs. Note: Avoid Potassium supplementation due to potassium in Penicillin G. Discharge Planning Patient has no funding for outpatient IV antibiotics, rehabilitation. Can be transferred to [place] if a bed is available. Discussed with the patient, nurse Camila Matthews MD Nov 15, 2016 10:38
[2016-11-15 12:54] VITALS: BP 135/81; PULSE 98; RESP 17; TEMP 100.9; O2SAT 97
[2016-11-15 16:18] VITALS: BP 132/83; PULSE 101; RESP 17; TEMP 96.5; O2SAT 94
[2016-11-15 20:00] VITALS: BP 122/81; PULSE 96; RESP 20; TEMP 98.4; O2SAT 92
[2016-11-16] VITALS: BP_SYST 112; BP_SYST 120; BP_DIAS 78; BP_DIAS 87; PULSE 86; PULSE 92; RESP 18; RESP 20; TEMP 98.2; TEMP 98.7; O2SAT 93; O2SAT 96
[2016-11-16] MEDS: PENICILLIN G POTASSIUM INJ 4,000,000 UNITS in SODIUM CHLORIDE 0.9% INJ 100 ML IV SCH ×6 (01:59→22:53)
[2016-11-16] MEDS: CHLORHEXIDINE GLUCONATE 2 % 1 PACK (2 CLOTHS) TOP SCH (03:33)
[2016-11-16] MEDS: HEPARIN SODIUM - SQ 10,000 UNITS/ML VIAL SQ SCH ×2 (05:28→17:12)
[2016-11-16] MEDS: INSULIN ASPART SUPPLEMENTAL SCALE SQ SCH ×4 (05:28→21:39)
[2016-11-16 08:00] VITALS: BP 127/87; PULSE 95; RESP 18; TEMP 99.4; O2SAT 96
[2016-11-16] MEDS: THIAMINE HCL 100 MG TAB PO SCH (08:00)
[2016-11-16] MEDS: ASPIRIN 81 MG CHEW TAB CHEW SCH (08:00)
[2016-11-16] MEDS: PANTOPRAZOLE SODIUM 40 MG VIAL IV SCH (08:01)
[2016-11-16] MEDS: DOCUSATE SODIUM 100 MG CAP PO SCH ×2 (08:01→21:39)
[2016-11-16] MEDS: SODIUM CHLORIDE 0.9% FLUSH 5 ML FLUSH IV FLUSH SCH ×2 (08:01→21:40)
[2016-11-16] MEDS: SENNOSIDES 8.6 MG TAB PO SCH (08:01)
[2016-11-16] MEDS: FLUCONAZOLE 100 MG TAB PO SCH (08:01)
[2016-11-16] MEDS: FOLIC ACID 1 MG TAB PO SCH (08:01)
[2016-11-16] MEDS: DILTIAZEM HCL 60 MG TAB PO SCH ×4 (08:02→21:39)
[2016-11-16] MEDS: INSULIN DETEMIR 100 UNITS/ML VIAL SQ SCH ×2 (08:02→21:39)
[2016-11-16] MEDS: ACETAMINOPHEN/HYDROcodone 325 MG/5 MG TAB PO PRN ×3 (10:18→22:53)
[2016-11-16 12:00] VITALS: BP 121/81; PULSE 95; RESP 18; TEMP 98.5; O2SAT 96
--- NOTE | 2016-11-16 14:29 | HHI.PR ---
Subjective Remarks Seen earlier today. Patient in nad. No new deficit. No events overnight. Objective Vitals Vital Signs Date Time Temp Pulse Resp B/P Pulse Ox O2 Delivery O2 Flow Rate FiO2 11/16/16 12:00 98.5 95 18 121/81 96 11/16/16 11:18 15 11/16/16 08:00 99.4 95 18 127/87 96 11/16/16 00:00 98.2 86 20 120/78 93 11/15/16 20:00 98.4 96 20 122/81 92 11/15/16 16:18 96.5 101 17 132/83 94 I/O 11/15/16 11/15/16 11/15/16 11/16/16 11/16/16 11/16/16 07:00 15:00 23:00 07:00 15:00 23:00 Intake Total 233 ml 458 ml 560 ml 440 ml Output Total 1100 ml 1275 ml 550 ml 1450 ml Balance -867 ml -817 ml 10 ml -1010 ml Intake Oral 458 ml 360 ml 240 ml IV Total 233 ml 200 ml 200 ml Output Urine Total 1100 ml 1275 ml 550 ml 1450 ml # Bowel Movements 2 0 Result Diagram: 11/13/16 0706 Imaging Last Impressions Chest X-Ray 11/06/16 0000 Signed Impressions: Service Date/Time: November 08:38 - CONCLUSION: Left basilar density likely atelectasis. Elevation left hemidiaphragm. Gatito Abbott MD Foot X-Ray 11/05/16 0000 Signed Impressions: Service Date/Time: Saturday, November 05, 2016 18:02 - CONCLUSION: No acute disease. Julien Lopez MD Brain MRI 10/29/16 0000 Signed Impressions: Service Date/Time: Saturday, October 29, 2016 14:32 - CONCLUSION: Stable MRI of the brain. Findings consistent with right basal ganglion and thalamic subacute infarct. Chase Henry MD Chest CT 10/28/16 0000 Signed Impressions: Service Date/Time: Friday, October 28, 2016 16:51 - CONCLUSION: 1. Bibasilar consolidation. I'm concerned these could relate to infectious infiltrates. Atelectasis is felt less likely. Alex Bass Jr., MD Abdomen/Pelvis CT 10/28/16 0000 Signed Impressions: Service Date/Time: Friday, October 28, 2016 16:51 - CONCLUSION: 1. Nonobstructing bilateral renal calculi. 2. Stable bilateral adrenal nodules. 3. Previous mesh placement. No residual hernias. 4. Diverticulosis without diverticulitis. 5. Slight inflammatory changes adjacent to the right kidney, nonspecific. 6. No abscess. Gatito Abbott MD Liver Ultrasound 10/25/16 0000 Signed Impressions: Service Date/Time: Tuesday, October 25, 2016 19:05 - CONCLUSION: 1. Fatty liver enlarged to 20 cm in length. Multiple gallstones with trace fluid around gallbladder wall which is mildly thickened at 4 mm. No biliary ductal dilatation. Clifton Watson MD Lumbar Puncture Fluoroscopy 10/21/16 0000 Signed Impressions: Service Date/Time: Friday, October 21, 2016 15:20 - CONCLUSION: Uncomplicated fluoroscopically guided lumbar puncture with pressures as above. 12 cc of pus was collected and sent to the lab. Dr. Reid was notified. Melvin Nielsen MD Head CT 10/20/16 0000 Signed Impressions: Service Date/Time: Thursday, October 20, 2016 03:40 - CONCLUSION: 1. No evidence of acute intracranial pathology. No masses are identified. 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 Micha Wallace MD Abdomen X-Ray 10/20/16 0000 Signed Impressions: Service Date/Time: Thursday, October 20, 2016 12:03 - CONCLUSION: Nonspecific bowel gas. Maximiliano Nielsen MD FACR Objective Remarks GENERAL: 51 yo ill-appearing male lying in bed. Left hemiplegia SKIN: Warm and dry. HEAD: Atraumatic. Normocephalic. EYES: Pupils equal and round, 2 mm. No scleral icterus, or nystagmus. No injection or drainage. ENT: No nasal bleeding or discharge. Mucous membranes pink and moist. NECK: Trachea midline. No JVD. CARDIOVASCULAR: Regular rate, and regular rhythm. RESPIRATORY: Breath sounds equal bilaterally. No wheezes or crackles today GASTROINTESTINAL: Abdomen soft, non-tender, nondistended. No guarding. Well- healed midline abdominal scar MUSCULOSKELETAL: No obvious deformities. NEUROLOGICAL: Pt wakes up following commands right upper and lower extremity, hemiplegic on the left side. 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 Continue antibiotics per ID recommendations. Follow labs, cultures. ID consulted, Dr. Reid appreciate recommendations: Continue Penicillin G 24 million units per day in divided doses will need 6 wks IV (tentative stop date: 12/02/2016) CBC with diff, CMP, CRP once a week to be ordered by hospitalist. Please call if any abnormal labs or change in clinical condition. DC Gentamicin for synergy completed 2 weeks Toxic metabolic encephalopathy Right Subacute basal ganglia infarct, with L hemiplegia Monitor neuro status. Appreciate neurology recommendations. Monitor for alcohol withdrawal. EEG on showed severe encephalopathy. Continue Thiamine, Folate. Respiratory insufficiency: Continue supplemental oxygen as needed. DuoNeb scheduled and as needed. Endocarditis: ROSIBEL on 10/22/16 showed aortic vegetations, EF 55%. Continue antibiotics. Appreciate ID recommendations. Dehydration: Resolved. Elevated LFTs: Trending down. Liver ultrasound shows fatty liver, multiple gallstones, mildly thickened gallbladder wall. Diabetes mellitus 2, uncontrolled, A1c 7.1 : Monitor accuchecks and cover with sliding scale insulin. Glucose has remained elevated. Continue Levemir. Nadine in urine: Continue Diflucan. Hyponatremia: fluid restriction 1.5L. Monitor BMP in AM GI Prophylaxis: Protonix. DVT prophylaxis: Heparin, SCDs. Note: Avoid Potassium supplementation due to potassium in Penicillin G. Discharge Planning Patient has no funding for outpatient IV antibiotics, rehabilitation. Can be transferred to [place] if a bed is available. Discussed with the patient, nurse Camila Matthews MD Nov 16, 2016 14:29
[2016-11-16 16:00] VITALS: BP 131/87; PULSE 96; RESP 18; TEMP 99; O2SAT 93
[2016-11-16 20:00] VITALS: BP 109/75; PULSE 93; RESP 18; TEMP 98.5; O2SAT 95
[2016-11-17] VITALS (8 sets, daily range): BP systolic 109–130; BP diastolic 58–84; PULSE 87–109; RESP 18–20; TEMP 97–101.4; O2SAT 95–98
[2016-11-17] MEDS: PENICILLIN G POTASSIUM INJ 4,000,000 UNITS in SODIUM CHLORIDE 0.9% INJ 100 ML IV SCH ×6 (02:13→23:08)
[2016-11-17] MEDS: CHLORHEXIDINE GLUCONATE 2 % 1 PACK (2 CLOTHS) TOP SCH (04:00)
[2016-11-17] MEDS: HEPARIN SODIUM - SQ 10,000 UNITS/ML VIAL SQ SCH ×2 (04:10→16:30)
[2016-11-17] MEDS: ACETAMINOPHEN/HYDROcodone 325 MG/5 MG TAB PO PRN ×3 (04:10→19:57)
[2016-11-17] MEDS: INSULIN ASPART SUPPLEMENTAL SCALE SQ SCH ×4 (06:41→22:07)
[2016-11-17] MEDS: DILTIAZEM HCL 60 MG TAB PO SCH ×4 (08:29→22:06)
[2016-11-17] MEDS: PANTOPRAZOLE SODIUM 40 MG VIAL IV SCH (08:29)
[2016-11-17] MEDS: ASPIRIN 81 MG CHEW TAB CHEW SCH (08:29)
[2016-11-17] MEDS: SODIUM CHLORIDE 0.9% FLUSH 5 ML FLUSH IV FLUSH SCH ×2 (08:29→19:57)
[2016-11-17] MEDS: DOCUSATE SODIUM 100 MG CAP PO SCH ×2 (08:29→22:06)
[2016-11-17] MEDS: THIAMINE HCL 100 MG TAB PO SCH (08:30)
[2016-11-17] MEDS: FLUCONAZOLE 100 MG TAB PO SCH (08:30)
[2016-11-17] MEDS: INSULIN DETEMIR 100 UNITS/ML VIAL SQ SCH ×2 (08:30→22:06)
[2016-11-17] MEDS: SENNOSIDES 8.6 MG TAB PO SCH (08:30)
[2016-11-17] MEDS: FOLIC ACID 1 MG TAB PO SCH (08:30)
[2016-11-17] MEDS: RESP: ALBUTEROL 2.5 MG/IPRATROPIUM 0.5 MG NEB (PRN) NEB (10:44)
--- NOTE | 2016-11-17 12:35 | HHI.PR ---
Subjective Remarks Seen in the morning, sleepy. Says she feels wheezy. N n/v/d/c. Denies chest pain , has scant cough, no fever or chills. Will giove zeenat,. Encourage IS. Objective Vitals Vital Signs Date Time Temp Pulse Resp B/P Pulse Ox O2 Delivery O2 Flow Rate FiO2 11/17/16 11:57 97.8 89 20 130/76 98 11/17/16 07:55 99.4 87 20 127/73 96 11/17/16 04:00 98.3 100 18 110/58 97 11/17/16 00:00 97.0 91 18 109/72 96 11/16/16 20:00 98.5 93 18 109/75 95 11/16/16 19:28 15 11/16/16 16:00 99.0 96 18 131/87 93 I/O 11/16/16 11/16/16 11/16/16 11/17/16 11/17/16 11/17/16 07:00 15:00 23:00 07:00 15:00 23:00 Intake Total 440 ml 1700 ml 572 ml Output Total 1450 ml 1165 ml Balance -1010 ml 535 ml 572 ml Intake Oral 240 ml 1500 ml IV Total 200 ml 200 ml 572 ml Output Urine Total 1450 ml 1165 ml # Bowel Movements 0 2 Result Diagram: 11/13/16 0706 Imaging Last Impressions Chest X-Ray 11/06/16 0000 Signed Impressions: Service Date/Time: November 08:38 - CONCLUSION: Left basilar density likely atelectasis. Elevation left hemidiaphragm. Gatito Abbott MD Foot X-Ray 11/05/16 0000 Signed Impressions: Service Date/Time: Saturday, November 05, 2016 18:02 - CONCLUSION: No acute disease. Julien Lopez MD Brain MRI 10/29/16 0000 Signed Impressions: Service Date/Time: Saturday, October 29, 2016 14:32 - CONCLUSION: Stable MRI of the brain. Findings consistent with right basal ganglion and thalamic subacute infarct. Chase Henry MD Chest CT 10/28/16 0000 Signed Impressions: Service Date/Time: Friday, October 28, 2016 16:51 - CONCLUSION: 1. Bibasilar consolidation. I'm concerned these could relate to infectious infiltrates. Atelectasis is felt less likely. Alex Bass Jr., MD Abdomen/Pelvis CT 10/28/16 0000 Signed Impressions: Service Date/Time: Friday, October 28, 2016 16:51 - CONCLUSION: 1. Nonobstructing bilateral renal calculi. 2. Stable bilateral adrenal nodules. 3. Previous mesh placement. No residual hernias. 4. Diverticulosis without diverticulitis. 5. Slight inflammatory changes adjacent to the right kidney, nonspecific. 6. No abscess. Gatito Abbott MD Liver Ultrasound 10/25/16 0000 Signed Impressions: Service Date/Time: Tuesday, October 25, 2016 19:05 - CONCLUSION: 1. Fatty liver enlarged to 20 cm in length. Multiple gallstones with trace fluid around gallbladder wall which is mildly thickened at 4 mm. No biliary ductal dilatation. Clifton Watson MD Lumbar Puncture Fluoroscopy 10/21/16 0000 Signed Impressions: Service Date/Time: Friday, October 21, 2016 15:20 - CONCLUSION: Uncomplicated fluoroscopically guided lumbar puncture with pressures as above. 12 cc of pus was collected and sent to the lab. Dr. Reid was notified. Melvin Nielsen MD Head CT 10/20/16 0000 Signed Impressions: Service Date/Time: Thursday, October 20, 2016 03:40 - CONCLUSION: 1. No evidence of acute intracranial pathology. No masses are identified. 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 Micha Wallace MD Abdomen X-Ray 10/20/16 0000 Signed Impressions: Service Date/Time: Thursday, October 20, 2016 12:03 - CONCLUSION: Nonspecific bowel gas. Maximiliano Nielsen MD FACR Objective Remarks GENERAL: 51 yo ill-appearing male lying in bed. Left hemiplegia SKIN: Warm and dry. HEAD: Atraumatic. Normocephalic. EYES: Pupils equal and round, 2 mm. No scleral icterus, or nystagmus. No injection or drainage. ENT: No nasal bleeding or discharge. Mucous membranes pink and moist. NECK: Trachea midline. No JVD. CARDIOVASCULAR: Regular rate, and regular rhythm. RESPIRATORY: Breath sounds equal bilaterally. No wheezes or crackles today GASTROINTESTINAL: Abdomen soft, non-tender, nondistended. No guarding. Well- healed midline abdominal scar MUSCULOSKELETAL: No obvious deformities. NEUROLOGICAL: Pt wakes up following commands right upper and lower extremity, hemiplegic on the left side. 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 Continue antibiotics per ID recommendations. Follow labs, cultures. ID consulted, Dr. Reid appreciate recommendations: Continue Penicillin G 24 million units per day in divided doses will need 6 wks IV (tentative stop date: 12/02/2016) CBC with diff, CMP, CRP once a week to be ordered by hospitalist. Please call if any abnormal labs or change in clinical condition. DC Gentamicin for synergy completed 2 weeks Encourage IS Duonebs as need. Toxic metabolic encephalopathy Right Subacute basal ganglia infarct, with L hemiplegia Monitor neuro status. Appreciate neurology recommendations. Monitor for alcohol withdrawal. EEG on showed severe encephalopathy. Continue Thiamine, Folate. Respiratory insufficiency: Continue supplemental oxygen as needed. DuoNeb scheduled and as needed. Endocarditis: ROSIBEL on 10/22/16 showed aortic vegetations, EF 55%. Continue antibiotics. Appreciate ID recommendations. Dehydration: Resolved. Elevated LFTs: Trending down. Liver ultrasound shows fatty liver, multiple gallstones, mildly thickened gallbladder wall. Diabetes mellitus 2, uncontrolled, A1c 7.1 : Monitor accuchecks and cover with sliding scale insulin. Glucose has remained elevated. Continue Levemir. Nadine in urine: Continue Diflucan. Hyponatremia: fluid restriction 1.5L. Monitor BMP in AM GI Prophylaxis: Protonix. DVT prophylaxis: Heparin, SCDs. Note: Avoid Potassium supplementation due to potassium in Penicillin G. Discharge Planning Patient has no funding for outpatient IV antibiotics, rehabilitation. Can be transferred to [place] if a bed is available. Discussed with the patient, nurse Camila Matthews MD Nov 17, 2016 12:35
[2016-11-17] MEDS: ACETAMINOPHEN 325 MG TAB PO PRN (15:08)
[2016-11-18 03:00] VITALS: TEMP 98.8
[2016-11-18] MEDS: PENICILLIN G POTASSIUM INJ 4,000,000 UNITS in SODIUM CHLORIDE 0.9% INJ 100 ML IV SCH ×6 (03:01→21:32)
[2016-11-18] MEDS: HEPARIN SODIUM - SQ 10,000 UNITS/ML VIAL SQ SCH ×2 (03:02→14:09)
[2016-11-18] MEDS: ACETAMINOPHEN/HYDROcodone 325 MG/5 MG TAB PO PRN ×3 (03:02→21:32)
[2016-11-18] MEDS: CHLORHEXIDINE GLUCONATE 2 % 1 PACK (2 CLOTHS) TOP SCH (03:11)
[2016-11-18] MEDS: INSULIN ASPART SUPPLEMENTAL SCALE SQ SCH ×4 (06:26→21:33)
[2016-11-18 08:00] VITALS: BP 112/83; PULSE 92; RESP 20; TEMP 98.5; O2SAT 93
[2016-11-18] MEDS: DOCUSATE SODIUM 100 MG CAP PO SCH ×2 (08:34→21:10)
[2016-11-18] MEDS: THIAMINE HCL 100 MG TAB PO SCH (08:34)
[2016-11-18] MEDS: SENNOSIDES 8.6 MG TAB PO SCH (08:35)
[2016-11-18] MEDS: FOLIC ACID 1 MG TAB PO SCH (08:35)
[2016-11-18] MEDS: DILTIAZEM HCL 60 MG TAB PO SCH ×4 (08:35→21:10)
[2016-11-18] MEDS: FLUCONAZOLE 100 MG TAB PO SCH (08:35)
[2016-11-18] MEDS: ASPIRIN 81 MG CHEW TAB CHEW SCH (08:35)
[2016-11-18] MEDS: INSULIN DETEMIR 100 UNITS/ML VIAL SQ SCH ×2 (08:36→21:11)
[2016-11-18] MEDS: SODIUM CHLORIDE 0.9% FLUSH 5 ML FLUSH IV FLUSH SCH ×2 (08:41→21:10)
[2016-11-18] MEDS: PANTOPRAZOLE SODIUM 40 MG VIAL IV SCH (08:41)
[2016-11-18 11:53] VITALS: BP 158/84; PULSE 80
[2016-11-18 12:00] VITALS: BP 158/84; PULSE 80
--- NOTE | 2016-11-18 16:03 | HHI.PR ---
Subjective Remarks Patient seen and examined today. Patient denies any new complaints. Still with left hemiplegia. Patient indicates that he usually rebounds quickly with his TIA/strokes Objective Vitals Vital Signs Date Time Temp Pulse Resp B/P Pulse Ox O2 Delivery O2 Flow Rate FiO2 11/18/16 12:00 80 158/84 11/18/16 11:53 80 158/84 11/18/16 09:34 12 11/18/16 08:00 98.5 92 20 112/83 93 11/18/16 03:00 98.8 11/17/16 20:00 99.9 92 20 125/77 97 11/17/16 17:19 98.3 11/17/16 16:01 101.4 107 20 127/79 96 I/O 11/17/16 11/17/16 11/17/16 11/18/16 11/18/16 11/18/16 07:00 15:00 23:00 07:00 15:00 23:00 Intake Total 572 ml 821 ml 820 ml 743 ml 600 ml Output Total 525 ml 925 ml 550 ml Balance 572 ml 821 ml 295 ml -182 ml 50 ml Intake Oral 821 ml 820 ml 480 ml 600 ml IV Total 572 ml 263 ml Output Urine Total 525 ml 925 ml 550 ml # Voids 5 3 1 # Bowel Movements 0 0 Objective Remarks GENERAL: Well-developed, well-nourished, in no acute distress. alert and orientated HEENT: Head is normocephalic without any lesions or masses noted. Facial features are symmetric. Eyes: Extraocular muscles are intact. Conjunctivae were clear. NECK: Supple without any masses. Trachea midline no deviation. No JVD, CARDIAC: Regular rhythm, regular rate. S1/S2 are heard. No murmurs gallops or rubs. LUNGS: Clear to auscultation bilaterally. No wheeze, rhonchi or rales. No use of accessory muscles on inspiration or expiration. ABDOMEN: Soft, nontender. Nondistended. Bowel sounds heard in all 4 quadrants. No organomegaly or masses. Negative rebound, negative guarding EXTREMITIES: No edema, pulses are equal bilaterally. No cyanosis or clubbing NEUROLOGY: Mood and affect appear appropriate. Patient able to flex and extend left ankle. Patient without any strength in the left upper extremity. Right upper and lower extremity with 5/5 strength in 2+ deep tendon reflexes Procedures 10/20/16 intubation 10/20/16 central line placement 10/21/16 lumbar puncture Urinary Catheter: No Vascular Central Line Catheter: No A/P Assessment and Plan Sepsis secondary to strep pneumoniae meningitis: Infectious disease following the patient. Antibiotics per ID recommendations. Follow labs, cultures. Continue Penicillin G 24 million units per day in divided doses will need 6 wks IV (tentative stop date: 12/02/2016) avoid potassium supplementation while on penicillin G CBC with diff, CMP, CRP once a week, call if any abnormal labs or change in clinical condition. DC Gentamicin for synergy completed 2 weeks Bacterial Endocarditis: Blood cultures with strep pneumonia, negative cultures since 10/21/16 ROSIBEL on 10/22/16 showed aortic vegetations, EF 55%. Continue antibiotics. Infectious disease recommended antibiotics as above Toxic metabolic encephalopathy, resolved History of alcohol abuse, continue thiamine and folic acid Polysubstance abuse with urine drug screen positive for opiates, benzodiazepines, cannabinoids EEG showed severe encephalopathy Neurology was following the patient Right Subacute basal ganglia infarct, with L hemiplegia Monitor neuro status. MRI studies did indicate right basal ganglion and thalamus subacute infarct, full neurological workup was completed Neurology was following the patient and recommended aspirin and statin Patient will require long-term therapy Respiratory insufficiency: Resolved Patient not requiring supplemental oxygen Continue duo nebs as needed Encourage incentive spirometry Elevated LFTs: Resolved Liver ultrasound shows fatty liver, multiple gallstones, mildly thickened gallbladder wall. Diabetes mellitus 2, uncontrolled, A1c 7.1 Accu-Cheks with sliding scale insulin Levemir 5 units every 12 hours Nadine in urine: Patient remains on Diflucan, will discontinue at this time Obtain urine culture Hyponatremia: Continue fluid restriction 1.5L. Continue monitor sodium level as needed GI Prophylaxis: Protonix. DVT prophylaxis: Heparin, SCDs. Discharge Planning Discharge planning per case management. Last documentation 11/17/16 indicates transfer to [place], documentation from 11/14/16 indicates patient not medically stable for discharge. SSI pending. Patient will require rehabilitation upon discharge Josh Taylor Nov 18, 2016 16:03
[2016-11-18] MEDS ORDERED: ONDANSETRON ODT 4 MG TAB PO PRN (16:15)
[2016-11-18 19:53] LABS: BLOOD, URINE NEG (NEG); GLUCOSE,URINE NEG (NEG); KETONE, URINE NEG (NEG); NITRITE,URINE NEG (NEG); PH, URINE 5.5 (5.0-8.5)
[2016-11-18 20:00] VITALS: BP 142/95; PULSE 114; RESP 21; TEMP 98.9; O2SAT 95
[2016-11-18 20:02] LABS: URINE COLOR YELLOW (YELLW/STRAW)
[2016-11-18 20:03] LABS: SQUAMOUS EPITHELIAL CELL URINE 0-5 /hpf (0-5)
[2016-11-18 20:04] LABS: BACTERIA, URINE OCC /hpf; MUCUS URINE OCC /lpf (OCC)
[2016-11-18 20:05] LABS: COMMENT (UR) CULT NOT INDICATED; CULTURE IF INDICATED CULT NOT INDICATED; RBC, URINE 0-3 /hpf (0-3)
[2016-11-19] MEDS: PENICILLIN G POTASSIUM INJ 4,000,000 UNITS in SODIUM CHLORIDE 0.9% INJ 100 ML IV SCH ×6 (02:38→21:02)
[2016-11-19] MEDS: HEPARIN SODIUM - SQ 10,000 UNITS/ML VIAL SQ SCH ×2 (03:44→17:44)
[2016-11-19] MEDS: ACETAMINOPHEN/HYDROcodone 325 MG/5 MG TAB PO PRN ×2 (03:44→13:21)
[2016-11-19] MEDS: INSULIN ASPART SUPPLEMENTAL SCALE SQ SCH ×4 (06:24→21:00)
[2016-11-19] MEDS: ACETAMINOPHEN 325 MG TAB PO PRN (06:25)
[2016-11-19] MEDS: INSULIN DETEMIR 100 UNITS/ML VIAL SQ SCH ×2 (07:58→20:52)
[2016-11-19] MEDS: PANTOPRAZOLE SOD 40 MG DELAYED RELEASE TAB PO SCH (07:58)
[2016-11-19] MEDS: DILTIAZEM-CD 240 MG CAP ER PO SCH (07:58)
[2016-11-19] MEDS: SENNOSIDES 8.6 MG TAB PO SCH (07:58)
[2016-11-19] MEDS: ASPIRIN 81 MG CHEW TAB CHEW SCH (07:59)
[2016-11-19] MEDS: SODIUM CHLORIDE 0.9% FLUSH 5 ML FLUSH IV FLUSH SCH ×2 (07:59→20:51)
[2016-11-19] MEDS: FOLIC ACID 1 MG TAB PO SCH (07:59)
[2016-11-19] MEDS: DOCUSATE SODIUM 100 MG CAP PO SCH ×2 (07:59→20:51)
[2016-11-19] MEDS: THIAMINE HCL 100 MG TAB PO SCH (07:59)
[2016-11-19 08:00] VITALS: BP 139/95; PULSE 82; RESP 21; TEMP 98.3; O2SAT 95
--- NOTE | 2016-11-19 08:58 | HHI.PR ---
Subjective Remarks Patient seen and examined today. Patient wants to go home to finish rehabilitation treatment. Denies any new complaints. Objective Vitals Vital Signs Date Time Temp Pulse Resp B/P Pulse Ox O2 Delivery O2 Flow Rate FiO2 11/19/16 07:57 14 11/19/16 04:44 16 11/18/16 20:00 98.9 114 21 142/95 95 11/18/16 12:00 80 158/84 11/18/16 11:53 80 158/84 11/18/16 09:34 12 I/O 11/18/16 11/18/16 11/18/16 11/19/16 11/19/16 11/19/16 07:00 15:00 23:00 07:00 15:00 23:00 Intake Total 743 ml 600 ml 240 ml 240 ml Output Total 925 ml 550 ml 550 ml 200 ml Balance -182 ml 50 ml -310 ml 40 ml Intake Oral 480 ml 600 ml 240 ml 240 ml IV Total 263 ml Output Urine Total 925 ml 550 ml 550 ml 200 ml # Voids 1 # Bowel Movements 0 1 0 Objective Remarks GENERAL: Well-developed, well-nourished, in no acute distress. alert and orientated HEENT: Head is normocephalic without any lesions or masses noted. Facial features are symmetric. Eyes: Extraocular muscles are intact. Conjunctivae were clear. NECK: Supple without any masses. Trachea midline no deviation. No JVD, CARDIAC: Regular rhythm, regular rate. S1/S2 are heard. No murmurs gallops or rubs. LUNGS: Clear to auscultation bilaterally. No wheeze, rhonchi or rales. No use of accessory muscles on inspiration or expiration. ABDOMEN: Soft, nontender. Nondistended. Bowel sounds heard in all 4 quadrants. No organomegaly or masses. Negative rebound, negative guarding EXTREMITIES: No edema, pulses are equal bilaterally. No cyanosis or clubbing NEUROLOGY: Mood and affect appear appropriate. Patient able to flex and extend left ankle. Patient without any strength in the left upper extremity. Right upper and lower extremity with 5/5 strength in 2+ deep tendon reflexes Procedures 10/20/16 intubation 10/20/16 central line placement 10/21/16 lumbar puncture Urinary Catheter: No Vascular Central Line Catheter: No A/P Assessment and Plan Sepsis secondary to strep pneumoniae meningitis: Infectious disease following the patient. Antibiotics per ID recommendations. Follow labs, cultures. Continue Penicillin G 24 million units per day in divided doses will need 6 wks IV (tentative stop date: 12/02/2016) avoid potassium supplementation while on penicillin G CBC with diff, CMP, CRP once a week, call if any abnormal labs or change in clinical condition. DC Gentamicin for synergy completed 2 weeks Bacterial Endocarditis: Blood cultures with strep pneumonia, negative cultures since 10/21/16 ROSIBEL on 10/22/16 showed aortic vegetations, EF 55%. Continue antibiotics. Infectious disease recommended antibiotics as above Toxic metabolic encephalopathy, resolved History of alcohol abuse, continue thiamine and folic acid Polysubstance abuse with urine drug screen positive for opiates, benzodiazepines, cannabinoids EEG showed severe encephalopathy Neurology was following the patient Right Subacute basal ganglia infarct, with L hemiplegia Monitor neuro status. MRI studies did indicate right basal ganglion and thalamus subacute infarct, full neurological workup was completed Neurology was following the patient and recommended aspirin and statin Patient will require long-term therapy Hypertension Cardizem 240 mg daily Respiratory insufficiency: Resolved Patient not requiring supplemental oxygen Continue duo nebs as needed Encourage incentive spirometry Elevated LFTs: Resolved Liver ultrasound shows fatty liver, multiple gallstones, mildly thickened gallbladder wall. Diabetes mellitus 2, uncontrolled, A1c 7.1 Accu-Cheks with sliding scale insulin Levemir 5 units every 12 hours Nadine in urine: Status post Diflucan treatment Repeat urinalysis does not indicate need for culture. Hyponatremia: Continue fluid restriction 1.5L. Continue monitor sodium level as needed GI Prophylaxis: Protonix. DVT prophylaxis: Heparin, SCDs. Discharge Planning Discharge planning per case management. Last documentation 11/17/16 indicates transfer to [place], documentation from 11/14/16 indicates patient not medically stable for discharge. SSI pending. Patient will require rehabilitation upon discharge Josh Taylor Nov 19, 2016 08:58
[2016-11-19 20:00] VITALS: BP 126/96; PULSE 106; RESP 20; TEMP 99.8; O2SAT 96
[2016-11-20] MEDS: PENICILLIN G POTASSIUM INJ 4,000,000 UNITS in SODIUM CHLORIDE 0.9% INJ 100 ML IV SCH ×5 (02:13→22:12)
[2016-11-20] MEDS: HEPARIN SODIUM - SQ 10,000 UNITS/ML VIAL SQ SCH ×2 (04:06→16:52)
[2016-11-20] MEDS: INSULIN ASPART SUPPLEMENTAL SCALE SQ SCH ×4 (06:21→21:00)
[2016-11-20 08:00] VITALS: BP 142/93; PULSE 91; RESP 20; TEMP 98.8; O2SAT 94
[2016-11-20] MEDS: THIAMINE HCL 100 MG TAB PO SCH (08:20)
[2016-11-20] MEDS: DILTIAZEM-CD 240 MG CAP ER PO SCH (08:20)
[2016-11-20] MEDS: PANTOPRAZOLE SOD 40 MG DELAYED RELEASE TAB PO SCH (08:20)
[2016-11-20] MEDS: SENNOSIDES 8.6 MG TAB PO SCH (08:21)
[2016-11-20] MEDS: ASPIRIN 81 MG CHEW TAB CHEW SCH (08:21)
[2016-11-20] MEDS: DOCUSATE SODIUM 100 MG CAP PO SCH ×2 (08:21→22:04)
[2016-11-20] MEDS: FOLIC ACID 1 MG TAB PO SCH (08:21)
[2016-11-20] MEDS: INSULIN DETEMIR 100 UNITS/ML VIAL SQ SCH ×2 (08:23→22:08)
[2016-11-20] MEDS: SODIUM CHLORIDE 0.9% FLUSH 5 ML FLUSH IV FLUSH SCH ×2 (08:23→22:12)
[2016-11-20] MEDS: ACETAMINOPHEN/HYDROcodone 325 MG/5 MG TAB PO PRN ×3 (11:19→22:48)
--- NOTE | 2016-11-20 15:15 | HHI.PR ---
Subjective Remarks Patient seen and examined today. Patient denies any new complaints. 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 alert and orientated HEENT: Head is normocephalic without any lesions or masses noted. Facial features are symmetric. Eyes: Extraocular muscles are intact. Conjunctivae were clear. NECK: Supple without any masses. Trachea midline no deviation. No JVD, CARDIAC: Regular rhythm, regular rate. S1/S2 are heard. No murmurs gallops or rubs. LUNGS: Clear to auscultation bilaterally. No wheeze, rhonchi or rales. No use of accessory muscles on inspiration or expiration. ABDOMEN: Soft, nontender. Nondistended. Bowel sounds heard in all 4 quadrants. No organomegaly or masses. Negative rebound, negative guarding EXTREMITIES: No edema, pulses are equal bilaterally. No cyanosis or clubbing NEUROLOGY: Mood and affect appear appropriate. Patient able to flex and extend left ankle. Patient without any strength in the left upper extremity. Right upper and lower extremity with 5/5 strength in 2+ deep tendon reflexes Procedures 10/20/16 intubation 10/20/16 central line placement 10/21/16 lumbar puncture Urinary Catheter: No Vascular Central Line Catheter: No A/P Assessment and Plan Sepsis secondary to strep pneumoniae meningitis: Infectious disease following the patient. Antibiotics per ID recommendations. Follow labs, cultures. Continue Penicillin G 24 million units per day in divided doses will need 6 wks IV (tentative stop date: 12/02/2016) avoid potassium supplementation while on penicillin G CBC with diff, CMP, CRP once a week, call if any abnormal labs or change in clinical condition. DC Gentamicin for synergy completed 2 weeks Bacterial Endocarditis: Blood cultures with strep pneumonia, negative cultures since 10/21/16 ROSIBEL on 10/22/16 showed aortic vegetations, EF 55%. Continue antibiotics. Infectious disease recommended antibiotics as above Toxic metabolic encephalopathy, resolved History of alcohol abuse, continue thiamine and folic acid Polysubstance abuse with urine drug screen positive for opiates, benzodiazepines, cannabinoids EEG showed severe encephalopathy Neurology was following the patient Right Subacute basal ganglia infarct, with L hemiplegia Monitor neuro status. MRI studies did indicate right basal ganglion and thalamus subacute infarct, full neurological workup was completed Neurology was following the patient and recommended aspirin and statin Patient will require long-term therapy Hypertension Cardizem 240 mg daily Respiratory insufficiency: Resolved Patient not requiring supplemental oxygen Continue duo nebs as needed Encourage incentive spirometry Elevated LFTs: Resolved Liver ultrasound shows fatty liver, multiple gallstones, mildly thickened gallbladder wall. Diabetes mellitus 2, uncontrolled, A1c 7.1 Accu-Cheks with sliding scale insulin Levemir 5 units every 12 hours Nadine in urine: Status post Diflucan treatment Repeat urinalysis does not indicate need for culture. Hyponatremia: Continue fluid restriction 1.5L. Continue monitor sodium level as needed GI Prophylaxis: Protonix. DVT prophylaxis: Heparin, SCDs. Discharge Planning Discharge planning per case management. Last documentation 11/17/16 indicates transfer to [place], documentation from 11/14/16 indicates patient not medically stable for discharge. SSI pending. Patient will require rehabilitation upon discharge Josh Taylor Nov 20, 2016 15:15
[2016-11-20 20:00] VITALS: BP 138/93; PULSE 94; RESP 20; TEMP 99.8; O2SAT 98
[2016-11-21] MEDS: PENICILLIN G POTASSIUM INJ 4,000,000 UNITS in SODIUM CHLORIDE 0.9% INJ 100 ML IV SCH ×2 (01:10→04:39)
[2016-11-21] MEDS: HEPARIN SODIUM - SQ 10,000 UNITS/ML VIAL SQ SCH (05:11)
[2016-11-21] MEDS: ACETAMINOPHEN/HYDROcodone 325 MG/5 MG TAB PO PRN (05:27)
[2016-11-21] MEDS: INSULIN ASPART SUPPLEMENTAL SCALE SQ SCH (06:39)
[2016-11-21] MEDS: DOCUSATE SODIUM 100 MG CAP PO SCH (07:52)
[2016-11-21] MEDS: PANTOPRAZOLE SOD 40 MG DELAYED RELEASE TAB PO SCH (07:52)
[2016-11-21] MEDS: ASPIRIN 81 MG CHEW TAB CHEW SCH (07:52)
[2016-11-21] MEDS: SENNOSIDES 8.6 MG TAB PO SCH (07:52)
[2016-11-21] MEDS: DILTIAZEM-CD 240 MG CAP ER PO SCH (07:52)
[2016-11-21] MEDS: INSULIN DETEMIR 100 UNITS/ML VIAL SQ SCH (07:53)
[2016-11-21] MEDS: FOLIC ACID 1 MG TAB PO SCH (07:53)
[2016-11-21] MEDS: THIAMINE HCL 100 MG TAB PO SCH (07:53)
[2016-11-21 08:00] VITALS: BP 110/83; PULSE 100; RESP 18; TEMP 98.3; O2SAT 95
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
== END 2016-11-21 10:05 | disposition left against medical advice (07) | DRG 870 ==
LOC: NEPA 11:42 → NEDA 13:26 → HIMW 15:00 → N05A 11-01 23:56 → PH5A 11-17 18:34
PROVIDERS: ADMIT Hospitalist; ATTEND Hospitalist
PROC: 5A1955Z Respiratory Ventilation, Greater than 96 Consecutive Hours (ICD-10-PCS; principal; 2016-10-20)
PROC: 0BH17EZ Insertion of Endotracheal Airway into Trachea, Via Natural or Artificial Opening (ICD-10-PCS; 2016-10-20)
PROC: 02HV33Z Insertion of Infusion Device into Superior Vena Cava, Percutaneous Approach (ICD-10-PCS; 2016-10-20)
PROC: 009U3ZX Drainage of Spinal Canal, Percutaneous Approach, Diagnostic (ICD-10-PCS; 2016-10-22)
PROC: B246ZZ4 Ultrasonography of Right and Left Heart, Transesophageal (ICD-10-PCS; 2016-10-22)
DX: A40.3 Sepsis due to Streptococcus pneumoniae (principal); I63.40 Cerebral infarction due to embolism of unspecified cerebral artery; J96.00 Acute respiratory failure, unspecified whether with hypoxia or hypercapnia; R65.21 Severe sepsis with septic shock; J13 Pneumonia due to Streptococcus pneumoniae; G92 Toxic encephalopathy; I33.0 Acute and subacute infective endocarditis; G00.1 Pneumococcal meningitis; E87.0 Hyperosmolality and hypernatremia; E86.0 Dehydration; G81.94 Hemiplegia, unspecified affecting left nondominant side; E87.2 Acidosis; F10.239 Alcohol dependence with withdrawal, unspecified; J98.11 Atelectasis; B37.49 Other urogenital candidiasis; E87.1 Hypo-osmolality and hyponatremia; N20.0 Calculus of kidney; E87.6 Hypokalemia; I10 Essential (primary) hypertension; E11.65 Type 2 diabetes mellitus with hyperglycemia; K76.0 Fatty (change of) liver, not elsewhere classified; K80.20 Calculus of gallbladder without cholecystitis without obstruction; K57.90 Diverticulosis of intestine, part unspecified, without perforation or abscess without bleeding; E83.39 Other disorders of phosphorus metabolism; R40.2434 Glasgow coma scale score 3-8, 24 hours or more after hospital admission; R29.810 Facial weakness; F19.10 Other psychoactive substance abuse, uncomplicated; Z78.1 Physical restraint status; Z86.73 Personal history of transient ischemic attack (TIA), and cerebral infarction without residual deficits
CPT/HCPCS: 31500; 36556; 36600; 62270; 70450; 70553; 71010; 71260; 73620; 74000; 74177; 76705; 76937; 77003; 80048; 80053; 80061; 80074; 80170; 80202; 80307; 80320; 81001; 82140; 82550; 82552; 82565; 82805; 82945; 82948; 83036; 83605; 83690; 83735; 84100; 84132; 84157; 84443; 84484; 85007; 85025; 85027; 85610; 85730; 86140; 86403; 86703; 87015; 87040; 87070; 87086; 87102; 87116; 87184; 87186; 87205; 87206; 87449; 87529; 87641; 87804; 89051; 93005; 93306; 93312; 93320; 93325; 93880; 94002; 94003; 94150; 94640; 94664; 95819; 96374; A9577; A9579; C9113; C9399; G0481; J0692; J0696; J1100; J1580; J1644; J1815; J2060; J2405; J2540; J2543; J3010; J3370; J3480; J7030; J7040; J7050; J7070; J7120; P9612; Q9963; Q9967

== ENCOUNTER 2016-11-22 12:25 | Inpatient (IN) | payer OTHER ==
[~2016-11-22] VITALS: Ht 190.5 cm; Wt 112.4 kg
[2016-11-22 12:38] VITALS: BP 137/92; PULSE 104; RESP 20; TEMP 99.1; O2SAT 96
[2016-11-22 12:45] VITALS: BP 137/92; PULSE 100; RESP 18; TEMP 99.1; O2SAT 97
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
[2016-11-22] MEDS ORDERED: DEXTROSE 50% IN WATER 50 ML VIAL(D50) IV PUSH PRN (13:15)
[2016-11-22] MEDS ORDERED: ONDANSETRON ODT 4 MG TAB PO PRN (13:15)
[2016-11-22] MEDS ORDERED: NALOXONE HCL 0.4 MG/ML AMP IV PRN (13:15)
[2016-11-22] MEDS ORDERED: GLUCAGON 1 MG/ML VIAL OTHER PRN (13:15)
[2016-11-22 13:20] LABS: AUTOMATED NEUTROPHIL # 7.3 TH/MM3 (1.8-7.7); BASOPHIL # 0.1 TH/MM3 (0-0.2); BASOPHIL % 0.7 % (0.0-2.0); EOSINOPHIL # 0.1 TH/MM3 (0-0.4); EOSINOPHIL % 0.7 % (0.0-4.0); HEMATOCRIT 36.7 % (39.0-51.0); HEMO FLAGS DIFF FINAL; LYMPH % 26.8 % (9.0-44.0); LYMPHOCYTE # 3.1 TH/MM3 (1.0-4.8); MEAN CELL VOLUME 96.5 FL (80.0-100.0); MEAN CORPUSCULAR HEMOGLOBIN 32.1 PG (27.0-34.0); MEAN CORPUSCULAR HGB CONC 33.2 % (32.0-36.0); MONO % 9.2 % (0.0-8.0); NEUT % 62.6 % (16.0-70.0); PLATELET COUNT 428 TH/MM3 (150-450); RED CELL DISTRIBUTION WIDTH 14.1 % (11.6-17.2); WHITE BLOOD COUNT 11.6 TH/MM3 (4.0-11.0)
[2016-11-22] MEDS ORDERED: ACETAMINOPHEN/HYDROcodone 325 MG/5 MG TAB PO ONE (13:30)
[2016-11-22 13:38] LABS: ALT (GPT) 33 U/L (12-78); ANION GAP 12 MEQ/L (5-15); AST (GOT) 18 U/L (15-37); BICARBONATE 26.2 MEQ/L (21.0-32.0); BLOOD UREA NITROGEN 9 MG/DL (7-18); CHLORIDE 97 MEQ/L (98-107); GLOMERULAR FILTRATION RATE 130 ML/MIN (>89); SODIUM (NA) 135 MEQ/L (136-145)
[2016-11-22 13:39] LABS: ALKALINE PHOSPHATASE 101 U/L (45-117); TOTAL BILIRUBIN ADULT 0.4 MG/DL (0.2-1.0)
--- NOTE | 2016-11-22 13:51 | EKG ---
Date Performed: 11/22/2016 Time Performed: 12:55:05 PTAGE: 51 years EKG: Sinus rhythm NORMAL ECG Compared to prior electrocardiogram,Prior EKG has marked artifact. PREVIOUS TRACING : 10/19/2016 23.32 DOCTOR: Balbir Tineo Interpretating Date/Time 11/22/2016 13:50:48
[2016-11-22 15:00] VITALS: BP 136/78; PULSE 86; RESP 18; O2SAT 98
[2016-11-22] MEDS: PENICILLIN G POTASSIUM INJ 4,000,000 UNITS in SODIUM CHLORIDE 0.9% INJ 100 ML IV SCH ×2 (15:24→21:54)
[2016-11-22 18:05] VITALS: BP 119/63
[2016-11-22 20:00] VITALS: BP 126/97; PULSE 102; RESP 20; TEMP 98.6; O2SAT 98
[2016-11-22] MEDS: INSULIN ASPART SUPPLEMENTAL SCALE SQ SCH ×2 (21:00→21:49)
[2016-11-22] MEDS: INSULIN DETEMIR 100 UNITS/ML VIAL SQ SCH (21:48)
[2016-11-22] MEDS: HEPARIN SODIUM - SQ 10,000 UNITS/ML VIAL SQ SCH (21:50)
[2016-11-22] MEDS: DOCUSATE SODIUM 100 MG CAP PO SCH (21:51)
[2016-11-22] MEDS: SODIUM CHLORIDE 0.9% FLUSH 5 ML FLUSH FLUSH SCH (21:52)
[2016-11-22] MEDS: ACETAMINOPHEN 325 MG TAB PO PRN (21:53)
[2016-11-23] MEDS: SODIUM CHLORIDE 0.9% FLUSH 5 ML FLUSH FLUSH PRN ×2 (01:56→05:22)
[2016-11-23] MEDS: PENICILLIN G POTASSIUM INJ 4,000,000 UNITS in SODIUM CHLORIDE 0.9% INJ 100 ML IV SCH ×6 (01:57→20:53)
[2016-11-23] MEDS: ACETAMINOPHEN 325 MG TAB PO PRN ×3 (06:20→20:52)
[2016-11-23] MEDS: INSULIN ASPART SUPPLEMENTAL SCALE SQ SCH ×4 (06:21→21:05)
[2016-11-23 08:00] VITALS: BP 121/80; PULSE 108; RESP 20; TEMP 100; O2SAT 98
[2016-11-23] MEDS: PANTOPRAZOLE SOD 40 MG DELAYED RELEASE TAB PO SCH (08:23)
[2016-11-23] MEDS: DILTIAZEM-CD 240 MG CAP ER PO SCH (08:23)
[2016-11-23] MEDS: INSULIN DETEMIR 100 UNITS/ML VIAL SQ SCH ×2 (08:23→21:16)
[2016-11-23] MEDS: DOCUSATE SODIUM 100 MG CAP PO SCH ×2 (08:24→20:52)
[2016-11-23] MEDS: THIAMINE HCL 100 MG TAB PO SCH (08:24)
[2016-11-23] MEDS: SENNOSIDES 8.6 MG TAB PO SCH (08:24)
[2016-11-23] MEDS: ASPIRIN 81 MG CHEW TAB CHEW SCH (08:24)
[2016-11-23] MEDS: HEPARIN SODIUM - SQ 10,000 UNITS/ML VIAL SQ SCH ×2 (08:24→20:53)
[2016-11-23] MEDS ORDERED: PNEUMOCOCCAL POLYVALENT INJ 25 MCG/0.5 ML SYR IM ONE (10:00)
[2016-11-23] MEDS ORDERED: INFLUENZA VIRUS VACCINE (QUADRIVALENT) 0.5 ML SYR IM ONE (10:00)
[2016-11-23] MEDS: SODIUM CHLORIDE 0.9% FLUSH 5 ML FLUSH FLUSH SCH ×2 (10:09→20:53)
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
--- NOTE | 2016-11-23 17:13 | RADHPO ---
EXAM DATE/TIME: 11/23/2016 16:40 [facility] COMPARISON: CHEST SINGLE AP, November 06, 2016, 8:38. CHEST SINGLE AP, October 31, 2016, 12:37. INDICATIONS : Fever MEDICAL HISTORY : Sepsis. Bacterial endocarditis SURGICAL HISTORY : None. ENCOUNTER: Subsequent ACUITY: 3 weeks PAIN SCORE: 0/10 LOCATION: Bilateral chest FINDINGS: PA and lateral views of the chest demonstrate the lungs to be symmetrically aerated without evidence of mass, confluent infiltrate or effusion. Mild streaky opacity remains at the left lung base most c onsistent with scarring. There is moderate scoliosis. The cardiomediastinal contours are unremarkable . Osseous structures are intact. CONCLUSION: 1. Mild streaky opacity remains at the left lung base most consistent with scarring. 2. No definite evidence of pneumonia. Micha Wallace MD on November 23, 2016 at 17:10 Board Certified Radiologist. This report was verified electronically.
[2016-11-23 18:28] LABS: BLOOD, URINE NEG (NEG); GLUCOSE,URINE NEG (NEG); KETONE, URINE NEG (NEG); NITRITE,URINE NEG (NEG); PH, URINE 5.5 (5.0-8.5)
[2016-11-23 18:37] LABS: METHOD OF COLLECTION CLEAN CATCH; URINE COLOR YELLOW (YELLW/STRAW)
[2016-11-23 18:39] LABS: CULTURE IF INDICATED CULT NOT INDICATED
[2016-11-23 18:40] LABS: COMMENT (UR) CULT NOT INDICATED; SQUAMOUS EPITHELIAL CELL URINE 0-5 /hpf (0-5)
[2016-11-23 20:00] VITALS: BP_SYST 122; BP_SYST 142; BP_DIAS 80; BP_DIAS 97; PULSE 115; PULSE 73; RESP 20; RESP 22; TEMP 100; TEMP 97.7; O2SAT 96; O2SAT 97
[2016-11-24] MEDS: PENICILLIN G POTASSIUM INJ 4,000,000 UNITS in SODIUM CHLORIDE 0.9% INJ 100 ML IV SCH ×6 (02:42→22:26)
[2016-11-24] MEDS: INSULIN ASPART SUPPLEMENTAL SCALE SQ SCH ×4 (07:00→20:37)
[2016-11-24 08:00] VITALS: BP 112/79; PULSE 93; RESP 16; TEMP 98.1; O2SAT 95
[2016-11-24] MEDS: SODIUM CHLORIDE 0.9% FLUSH 5 ML FLUSH FLUSH SCH ×2 (09:00→20:38)
[2016-11-24] MEDS: DILTIAZEM-CD 240 MG CAP ER PO SCH (09:20)
[2016-11-24] MEDS: PANTOPRAZOLE SOD 40 MG DELAYED RELEASE TAB PO SCH (09:20)
[2016-11-24] MEDS: SENNOSIDES 8.6 MG TAB PO SCH (09:20)
[2016-11-24] MEDS: DOCUSATE SODIUM 100 MG CAP PO SCH ×2 (09:20→20:38)
[2016-11-24] MEDS: HEPARIN SODIUM - SQ 10,000 UNITS/ML VIAL SQ SCH (09:20)
[2016-11-24] MEDS: THIAMINE HCL 100 MG TAB PO SCH (09:20)
[2016-11-24] MEDS: ASPIRIN 81 MG CHEW TAB CHEW SCH (09:21)
[2016-11-24] MEDS: INSULIN DETEMIR 100 UNITS/ML VIAL SQ SCH ×2 (09:21→20:37)
--- NOTE | 2016-11-24 10:00 | HHI.PR ---
Subjective Remarks Follow-up on patient with strep pneumonia meningitis, endocarditis and sepsis. Patient wants to know why he is fluid restricted and on carb diet. Requesting a Kacie-Kath. Also complaining of low back pain since CVA. No acute medical issues at this time. Objective Vitals Vital Signs Date Time Temp Pulse Resp B/P Pulse Ox O2 Delivery O2 Flow Rate FiO2 11/24/16 09:26 14 11/23/16 20:00 100.0 115 22 142/97 96 I/O 11/23/16 11/23/16 11/23/16 11/24/16 11/24/16 11/24/16 07:00 15:00 23:00 07:00 15:00 23:00 Intake Total 589 ml 360 ml 600 ml 480 ml Output Total 650 ml 450 ml 750 ml 1350 ml Balance -61 ml -90 ml -150 ml -870 ml Intake Oral 240 ml 360 ml 600 ml 480 ml IV Total 349 ml Output Urine Total 650 ml 450 ml 750 ml 1350 ml # Bowel Movements 2 0 0 Result Diagram: 11/22/16 1250 11/22/16 1250 Imaging Last 48 hours Impressions Chest X-Ray 11/23/16 0000 Signed Impressions: Service Date/Time: Wednesday, November 23, 2016 16:40 - CONCLUSION: 1. Mild streaky opacity remains at the left lung base most consistent with scarring. 2. No definite evidence of pneumonia. Micha Wallace MD Objective Remarks GENERAL: Well-nourished, well-developed patient in NAD. A&Ox3. Pleasant and cooperative. SKIN: Warm and dry. No rash. HEAD: Normocephalic. Atraumatic. EYES: EOMI. ENT: Mucus membranes dry. NECK: Supple. Trachea midline. CARDIOVASCULAR: Regular rate and rhythm. S1, S2 noted. No murmur appreciated. RESPIRATORY: No accessory muscle use. Clear to auscultation. Breath sounds equal bilaterally. GASTROINTESTINAL: Abdomen soft, non-tender, nondistended. Normoactive bowel sounds x4. MUSCULOSKELETAL: No obvious deformities. Extremities without clubbing, cyanosis , or edema. NEUROLOGICAL: Awake and alert. No obvious cranial nerve deficits. Motor grossly within normal limits RUE and RLE. No strength in the LUE. Unable to lift LLE off of bed. (+)some plantar and dorsiflexion LLE 3+-4-/5. Normal speech. PSYCHIATRIC: Appropriate mood and affect; insight and judgment normal. Medications and IVs Current Medications Medications (Trade) Dose Ordered Sig/Ananya Route Start Time Stop Time Status Last Admin (Vitamin B1) 100 mg DAILY PO 11/23/16 09:00 11/24/16 09:20 (Levemir Inj) 5 units Q12HR SQ 11/22/16 21:00 11/24/16 09:21 (Aspirin Chew) 81 mg DAILY CHEW 11/23/16 09:00 11/24/16 09:21 (Colace) 100 mg BID PO 11/22/16 21:00 11/24/16 09:20 (Senokot) 8.6 mg DAILY PO 11/23/16 09:00 11/24/16 09:20 (Cardizem Cd) 240 mg DAILY PO 11/23/16 09:00 11/24/16 09:20 (Protonix) 40 mg DAILY PO 11/23/16 09:00 11/24/16 09:20 (D50w (Vial) Inj) 25 ml UNSCH PRN IV PUSH 11/22/16 13:15 (Glucagon Inj) 1 mg UNSCH PRN OTHER 11/22/16 13:15 Heparin Sodium (Porcine) 5000 units 5,000 units Q12HR SQ 11/22/16 21:00 11/24/16 09:20 (Pfizerpen-G Inj/ NS Inj) 100 ml @ 200 mls/hr Q4H IV 11/22/16 14:00 11/24/16 09:26 (Tylenol) 650 mg Q6HR PRN PO 11/22/16 13:15 11/23/16 20:52 (Zofran Odt) 4 mg Q6H PRN PO 11/22/16 13:15 (NS Flush) 2 ml UNSCH PRN FLUSH 11/22/16 13:15 11/23/16 05:22 (NS Flush) 2 ml BID FLUSH 11/22/16 21:00 11/24/16 09:00 (Narcan Inj) 0.4 mg UNSCH PRN IV 11/22/16 13:15 A/P Problem List: (1) Endocarditis of aortic valve ICD Code: I35.8 Status: Acute (2) Bacterial meningitis ICD Code: G00.9 Status: Acute (3) Embolic stroke of left basal ganglia ICD Code: I63.40 Status: Acute Assessment and Plan Strep pneumonia meningitis, endocarditis, pneumonia and sepsis: Infectious disease following, very much appreciate their assistance Continue with Penicillin G 24 million units per day in divided doses, further recommendations and an date per ID CBC with diff, CMP, CRP once a week Blood cultures pending Chest x-ray personally reviewed. Report states lungs symmetrically aerated without evidence of mass, confluent infiltrate or effusion. Mild streaky opacity remains at the left lung base most consistent with scarring. No e/o PNA. UA negative Right Subacute basal ganglia infarct, with L hemiplegia Aspirin continued Continue PT/OT/ST evaluations Extensive DVT LLE Showed on duplex study -Started on Xarelto Back pain Concerning for discitis/osteomyelitis given history of recent sepsis MRI thoracic and lumbar spine ordered by ID, will follow-up on results Continue with Tylenol when necessary Hypertension Well-controlled Cardizem 240 mg daily Tachycardia low grade fever 100.0 last WBC 11.6, will reorder CBC for evaluation Monitor Anemia mild repeat CBC to monitor trend Diabetes mellitus 2, uncontrolled, with A1c 7.1 good control at present with BS running between 124-182 continue with Accu-Cheks with sliding scale insulin Levemir 5 units every 12 hours Confirmed patient is not on a fluid restricted diet. Explained to patient he has diabetes which is why he is on ADA diet. GI Prophylaxis: Protonix DVT prophylaxis: Heparin Chikis Elizondo Nov 24, 2016 10:00 Rani Sargent MD Nov 25, 2016 10:01
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
[2016-11-24 12:13] LABS: BASOPHIL # 0.1 TH/MM3 (0-0.2); BASOPHIL % 0.7 % (0.0-2.0); EOSINOPHIL # 0.1 TH/MM3 (0-0.4); EOSINOPHIL % 0.7 % (0.0-4.0); HEMATOCRIT 35.1 % (39.0-51.0); HEMO FLAGS DIFF FINAL; LYMPH % 18.8 % (9.0-44.0); LYMPHOCYTE # 2.4 TH/MM3 (1.0-4.8); MEAN CORPUSCULAR HEMOGLOBIN 31.5 PG (27.0-34.0); MEAN CORPUSCULAR HGB CONC 32.8 % (32.0-36.0); MONO % 7.2 % (0.0-8.0); NEUT % 72.6 % (16.0-70.0); PLATELET COUNT 502 TH/MM3 (150-450); RED BLOOD COUNT 3.66 MIL/MM3 (4.50-5.90); RED CELL DISTRIBUTION WIDTH 13.6 % (11.6-17.2); WHITE BLOOD COUNT 12.5 TH/MM3 (4.0-11.0)
[2016-11-24 12:29] LABS: BICARBONATE 26.6 MEQ/L (21.0-32.0); MAGNESIUM 1.6 MG/DL (1.5-2.5)
[2016-11-24] MEDS: RIVAROXABAN 15 MG TAB PO SCH ×2 (13:16→20:37)
[2016-11-24] MEDS: ACETAMINOPHEN 325 MG TAB PO PRN (14:18)
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
[2016-11-24 20:00] VITALS: BP 114/75; PULSE 117; RESP 22; TEMP 98.4; O2SAT 96
[2016-11-25] MEDS: ACETAMINOPHEN 325 MG TAB PO PRN ×2 (01:08→17:12)
[2016-11-25] MEDS: PENICILLIN G POTASSIUM INJ 4,000,000 UNITS in SODIUM CHLORIDE 0.9% INJ 100 ML IV SCH ×6 (01:09→21:27)
[2016-11-25 05:58] LABS: AUTOMATED NEUTROPHIL # 8.1 TH/MM3 (1.8-7.7); BASOPHIL # 0.2 TH/MM3 (0-0.2); BASOPHIL % 1.2 % (0.0-2.0); EOSINOPHIL # 0.1 TH/MM3 (0-0.4); HEMATOCRIT 35.4 % (39.0-51.0); HEMO FLAGS DIFF FINAL; LYMPH % 26.3 % (9.0-44.0); LYMPHOCYTE # 3.3 TH/MM3 (1.0-4.8); MEAN CELL VOLUME 96.6 FL (80.0-100.0); MEAN CORPUSCULAR HEMOGLOBIN 31.8 PG (27.0-34.0); MEAN CORPUSCULAR HGB CONC 32.9 % (32.0-36.0); MONO % 7.1 % (0.0-8.0); NEUT % 64.4 % (16.0-70.0); PLATELET COUNT 515 TH/MM3 (150-450); RED BLOOD COUNT 3.66 MIL/MM3 (4.50-5.90); RED CELL DISTRIBUTION WIDTH 13.6 % (11.6-17.2); WHITE BLOOD COUNT 12.6 TH/MM3 (4.0-11.0)
[2016-11-25] MEDS: INSULIN ASPART SUPPLEMENTAL SCALE SQ SCH ×4 (06:05→20:33)
[2016-11-25 08:00] VITALS: BP 142/92; PULSE 96; RESP 20; TEMP 96.8; O2SAT 96
[2016-11-25] MEDS: ASPIRIN 81 MG CHEW TAB CHEW SCH (08:27)
[2016-11-25] MEDS: DOCUSATE SODIUM 100 MG CAP PO SCH ×2 (08:27→20:32)
[2016-11-25] MEDS: PANTOPRAZOLE SOD 40 MG DELAYED RELEASE TAB PO SCH (08:27)
[2016-11-25] MEDS: THIAMINE HCL 100 MG TAB PO SCH (08:27)
[2016-11-25] MEDS: DILTIAZEM-CD 240 MG CAP ER PO SCH (08:27)
[2016-11-25] MEDS: SENNOSIDES 8.6 MG TAB PO SCH ×2 (08:27→17:05)
[2016-11-25] MEDS: SODIUM CHLORIDE 0.9% FLUSH 5 ML FLUSH FLUSH SCH ×2 (08:28→20:32)
[2016-11-25] MEDS: RIVAROXABAN 15 MG TAB PO SCH ×2 (08:28→20:32)
[2016-11-25] MEDS: INSULIN DETEMIR 100 UNITS/ML VIAL SQ SCH ×2 (08:28→20:33)
[2016-11-25] MEDS ORDERED: Custom Consult Pharmacy 1 EA OTHER SCH (10:00)
--- NOTE | 2016-11-25 13:06 | HHI.PR ---
Subjective Remarks Follow-up for meningitis, endocarditis, pneumonia, and sepsis. Patient was found to have extensive DVT in the left lower extremity yesterday and was started on Xarelto. Patient admits to back pain but denies any left calf pain aside from when he lifts his leg but states he experiences shooting pain down the leg when he does that. Denies any chest pain or shortness of breath. Admits to subjective fever last night but also states that the heat may have been turned up. Objective Vitals Vital Signs Date Time Temp Pulse Resp B/P Pulse Ox O2 Delivery O2 Flow Rate FiO2 11/25/16 08:00 96.8 96 20 142/92 96 11/25/16 02:08 16 11/24/16 20:00 98.4 117 22 114/75 96 I/O 11/24/16 11/24/16 11/24/16 11/25/16 11/25/16 11/25/16 07:00 15:00 23:00 07:00 15:00 23:00 Intake Total 480 ml 1290 ml 840 ml Output Total 1350 ml 400 ml 1000 ml Balance -870 ml 890 ml -160 ml Intake Oral 480 ml 960 ml 840 ml IV Total 330 ml Output Urine Total 1350 ml 400 ml 1000 ml # Voids 3 # Bowel Movements 0 0 0 Result Diagram: 11/25/16 0524 11/24/16 1145 Objective Remarks GENERAL: Well-nourished, the patient no apparent distress SKIN: Warm and dry. HEAD: Atraumatic. Normocephalic. CARDIOVASCULAR: Regular rate and rhythm. RESPIRATORY: No accessory muscle use. Clear to auscultation. Breath sounds equal bilaterally. GASTROINTESTINAL: Abdomen soft, non-tender, nondistended. MUSCULOSKELETAL: Left lower leg appears larger than right, but no pitting edema. No tenderness over the left calf, popliteal region, or posterior thigh. NEUROLOGICAL: Awake and alert. Normal speech. PSYCHIATRIC: Appropriate mood and affect; insight and judgment normal. 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 White blood cell count stable at 12.6. ESR elevated at 59. CRP 1.4. Infectious disease following. Continue with Penicillin G 24 million units per day in divided doses end date per ID. CBC with diff, CMP, CRP once a week. Repeat am CBC. Blood cultures 11/23 NGTD. Chest x-ray: lungs symmetrically aerated without evidence of mass, confluent infiltrate or effusion. Mild streaky opacity remains at the left lung base most consistent with scarring. No e/o PNA. UA negative Right Subacute basal ganglia infarct, with L hemiplegia Aspirin continued Continue PT/OT/ST evaluations. PT indicates need for wheelchair and left ankle and foot orthosis as well as PT at rehabilitation. Extensive DVT LLE -Continue Xarelto Back pain MRI thoracic and lumbar spine with disc protrusions but no evidence of infection. Continue with Tylenol when necessary Hypertension -Cardizem 240 mg daily -Monitor and adjust medication as needed Tachycardia low grade temp of 100F on 11/23, afebrile since. Monitor Anemia mild hemoglobin stable at 11.6 -Monitor CBC Diabetes mellitus 2, uncontrolled, with A1c 7.1 BGL 145 this am continue with Accu-Cheks with sliding scale insulin Levemir 5 units every 12 hours. Adjust as needed. Diabetic diet GI Prophylaxis: Protonix DVT prophylaxis: Xarelto Written by Kirsten Fournier PA-C acting as scribe for Dr. Sargent on 11/25/16 at 1215. Kirsten Fournier Nov 25, 2016 13:06 Rani Sargent MD Nov 26, 2016 11:39
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
[2016-11-25 20:00] VITALS: BP 124/74; PULSE 96; RESP 20; TEMP 99.4; O2SAT 96
[2016-11-26] MEDS: PENICILLIN G POTASSIUM INJ 4,000,000 UNITS in SODIUM CHLORIDE 0.9% INJ 100 ML IV SCH ×6 (02:32→21:55)
[2016-11-26] MEDS: INSULIN ASPART SUPPLEMENTAL SCALE SQ SCH ×4 (06:00→20:36)
[2016-11-26 07:34] LABS: AUTOMATED NEUTROPHIL # 8.2 TH/MM3 (1.8-7.7); BASOPHIL % 0.4 % (0.0-2.0); EOSINOPHIL # 0.2 TH/MM3 (0-0.4); EOSINOPHIL % 1.3 % (0.0-4.0); HEMATOCRIT 37.1 % (39.0-51.0); MEAN CELL VOLUME 97.5 FL (80.0-100.0); MEAN CORPUSCULAR HEMOGLOBIN 32.5 PG (27.0-34.0); MEAN CORPUSCULAR HGB CONC 33.3 % (32.0-36.0); MONO % 7.7 % (0.0-8.0); NEUT % 66.6 % (16.0-70.0); PLATELET COUNT 567 TH/MM3 (150-450); RED BLOOD COUNT 3.81 MIL/MM3 (4.50-5.90); RED CELL DISTRIBUTION WIDTH 14.2 % (11.6-17.2); WHITE BLOOD COUNT 12.4 TH/MM3 (4.0-11.0)
[2016-11-26 07:36] LABS: HEMO FLAGS DIFF FINAL
[2016-11-26] MEDS: RIVAROXABAN 15 MG TAB PO SCH ×2 (07:56→20:35)
[2016-11-26] MEDS: DILTIAZEM-CD 240 MG CAP ER PO SCH (07:57)
[2016-11-26] MEDS: DOCUSATE SODIUM 100 MG CAP PO SCH ×2 (07:57→20:34)
[2016-11-26] MEDS: THIAMINE HCL 100 MG TAB PO SCH (07:57)
[2016-11-26] MEDS: ASPIRIN 81 MG CHEW TAB CHEW SCH (07:57)
[2016-11-26] MEDS: SENNOSIDES 8.6 MG TAB PO SCH (07:57)
[2016-11-26] MEDS: PANTOPRAZOLE SOD 40 MG DELAYED RELEASE TAB PO SCH (07:57)
[2016-11-26] MEDS: INSULIN DETEMIR 100 UNITS/ML VIAL SQ SCH ×2 (07:57→20:35)
[2016-11-26] MEDS: SODIUM CHLORIDE 0.9% FLUSH 5 ML FLUSH FLUSH SCH ×2 (07:58→20:34)
[2016-11-26 08:00] VITALS: BP 145/98; PULSE 101; RESP 18; TEMP 100.8; O2SAT 94
[2016-11-26] MEDS: ACETAMINOPHEN 325 MG TAB PO PRN (08:04)
[2016-11-26] MEDS ORDERED: ACETAMINOPHEN/HYDROcodone 325 MG/7.5 MG TAB PO ONE (14:45)
--- NOTE | 2016-11-26 14:53 | HHI.PR ---
Subjective Remarks Follow-up for sepsis, endocarditis, pneumonia, meningitis with extensive LLE DVT on Xarelto. Patient denies any chest pain or shortness of breath. Noted to have fever this morning of 100.8. Objective Vitals Vital Signs Date Time Temp Pulse Resp B/P Pulse Ox O2 Delivery O2 Flow Rate FiO2 11/26/16 09:24 20 11/26/16 08:00 100.8 101 18 145/98 94 11/25/16 20:00 99.4 96 20 124/74 96 I/O 11/25/16 11/25/16 11/25/16 11/26/16 11/26/16 11/26/16 07:00 15:00 23:00 07:00 15:00 23:00 Intake Total 840 ml 621 ml 1000 ml 900 ml Output Total 1000 ml 780 ml 900 ml 750 ml 600 ml Balance -160 ml -159 ml 100 ml 150 ml -600 ml Intake Oral 840 ml 420 ml 1000 ml 900 ml IV Total 201 ml Output Urine Total 1000 ml 780 ml 900 ml 750 ml 600 ml # Bowel Movements 0 0 0 Result Diagram: 11/26/16 0650 11/24/16 1145 Objective Remarks GENERAL: Well-nourished, well developed patient no apparent distress SKIN: Warm and dry. HEAD: Atraumatic. Normocephalic. CARDIOVASCULAR: Regular rate and rhythm. RESPIRATORY: No accessory muscle use. Clear to auscultation. Breath sounds equal bilaterally. GASTROINTESTINAL: Abdomen soft, non-tender, nondistended. MUSCULOSKELETAL: No pitting edema of LLE. NEUROLOGICAL: Awake and alert. Normal speech. PSYCHIATRIC: Appropriate mood and affect; insight and judgment normal. 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 Status: Acute (2) Bacterial meningitis ICD Code: G00.9 Status: Acute (3) Embolic stroke of left basal ganglia ICD Code: I63.40 Status: Acute Assessment and Plan Strep pneumonia meningitis, endocarditis, pneumonia and sepsis: Infectious disease following. Continue with Penicillin G 24 million units per day in divided doses end date per ID. CBC with diff, CMP, CRP once a week. Last ESR elevated at 59. CRP 1.4. Low grade temp of 100F on 11/23. Blood cultures 11/23 NGTD. Chest x-ray 11/23: lungs symmetrically aerated without evidence of mass, confluent infiltrate or effusion. Mild streaky opacity remains at the left lung base most consistent with scarring. No e/o PNA. UA 11/[address] Acosta evaluated the patient yesterday in regards to low-grade temps, and attributed it to DVT, but patient now has a fever of 100.8 this morning. White blood cell count today stable at 12.4. I contacted Dr. Miranda to discuss this as patient already had recent chest x-ray, UA, blood cultures, and T-spine and L-spine MRIs which were negative for infection. She states fever is due to DVT as this can occur for 1 week after acute DVT. Tylenol prn fever Right Subacute basal ganglia infarct, with L hemiplegia Aspirin continued Continue PT/OT/ST evaluations. PT indicates need for wheelchair and left ankle and foot orthosis as well as PT at rehabilitation. Order Trapeze Extensive DVT LLE -Continue Xarelto Back pain MRI thoracic and lumbar spine 11/24 with disc protrusions but no evidence of infection. Continue with Tylenol when necessary RN later informed me that the patient's pain is 5-7 but has 8/10 pain in his L arm. Will order one-time dose of [place] 7.5/325. Hypertension -Cardizem 240 mg daily -Monitor and adjust medication as needed Tachycardia Monitor Anemia mild hemoglobin stable at 12.4. Monitor CBC Diabetes mellitus 2, uncontrolled, with A1c 7.1 BGL 162 this am, improved at 1100 continue with Accu-Cheks with sliding scale insulin Levemir 5 units every 12 hours. Adjust as needed. Diabetic diet GI Prophylaxis: Protonix DVT prophylaxis: Kirsten Benavides Nov 26, 2016 14:53
[2016-11-26 20:00] VITALS: BP 129/96; PULSE 95; RESP 20; TEMP 98.9; O2SAT 97
[2016-11-27] MEDS: ACETAMINOPHEN 325 MG TAB PO PRN ×4 (00:20→20:17)
[2016-11-27] MEDS: PENICILLIN G POTASSIUM INJ 4,000,000 UNITS in SODIUM CHLORIDE 0.9% INJ 100 ML IV SCH ×6 (02:12→22:11)
[2016-11-27] MEDS: INSULIN ASPART SUPPLEMENTAL SCALE SQ SCH ×4 (06:07→20:16)
[2016-11-27 08:00] VITALS: BP 125/85; PULSE 104; RESP 20; TEMP 99.4; O2SAT 94
[2016-11-27] MEDS: PANTOPRAZOLE SOD 40 MG DELAYED RELEASE TAB PO SCH (09:11)
[2016-11-27] MEDS: RIVAROXABAN 15 MG TAB PO SCH ×2 (09:11→20:15)
[2016-11-27] MEDS: DILTIAZEM-CD 240 MG CAP ER PO SCH (09:11)
[2016-11-27] MEDS: THIAMINE HCL 100 MG TAB PO SCH (09:11)
[2016-11-27] MEDS: SENNOSIDES 8.6 MG TAB PO SCH (09:11)
[2016-11-27] MEDS: DOCUSATE SODIUM 100 MG CAP PO SCH ×2 (09:11→20:15)
[2016-11-27] MEDS: ASPIRIN 81 MG CHEW TAB CHEW SCH (09:11)
[2016-11-27] MEDS: INSULIN DETEMIR 100 UNITS/ML VIAL SQ SCH ×2 (09:11→20:16)
[2016-11-27] MEDS: SODIUM CHLORIDE 0.9% FLUSH 5 ML FLUSH FLUSH SCH ×2 (09:12→20:15)
--- NOTE | 2016-11-27 18:32 | HHI.PR ---
Subjective Remarks Follow-up for sepsis, endocarditis, pneumonia, meningitis with extensive LLE DVT on Xarelto. Patient denies any chest pain or shortness of breath. He states he feels nauseous when he gets fevers. The patient had a fever on which was addressed with ID but he has been afebrile since; only low-grade temp of 99.4 today. Patient admits to feeling depressed. He denies any suicidal ideation. Initially admitted to wanting to harm a so-called "friend", but really is just angry regarding a situation which happened with that individual. Objective Vitals Vital Signs Date Time Temp Pulse Resp B/P Pulse Ox O2 Delivery O2 Flow Rate FiO2 11/27/16 15:17 18 11/27/16 08:00 99.4 104 20 125/85 94 11/26/16 20:00 98.9 95 20 129/96 97 I/O 11/26/16 11/26/16 11/26/16 11/27/16 11/27/16 11/27/16 07:00 15:00 23:00 07:00 15:00 23:00 Intake Total 900 ml 240 ml 240 ml 1630 ml Output Total 750 ml 600 ml 300 ml 1000 ml 950 ml Balance 150 ml -600 ml -60 ml -760 ml 680 ml Intake Oral 900 ml 240 ml 240 ml 1630 ml Output Urine Total 750 ml 600 ml 300 ml 1000 ml 950 ml # Voids 2 # Bowel Movements 0 1 Result Diagram: 11/26/16 0650 11/24/16 1145 Objective Remarks GENERAL: Well-nourished, well developed patient no apparent distress SKIN: Warm and dry. CARDIOVASCULAR: Regular rate and rhythm. RESPIRATORY: No accessory muscle use. Clear to auscultation. Breath sounds equal bilaterally. GASTROINTESTINAL: Abdomen soft, non-tender, nondistended. MUSCULOSKELETAL: No lower extremity edema noted. NEUROLOGICAL: Awake and alert. Difficulty moving left leg. Normal speech. PSYCHIATRIC: Depressed mood and affect; insight and judgment normal. 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 Status: Acute (2) Bacterial meningitis ICD Code: G00.9 Status: Acute (3) Embolic stroke of left basal ganglia ICD Code: I63.40 Status: Acute Assessment and Plan Strep pneumonia meningitis, endocarditis, pneumonia and sepsis: Infectious disease following. Continue with Penicillin G 24 million units per day in divided doses end date per ID. CBC with diff, CMP, CRP once a week, next labs on 11/29/16. Last ESR elevated at 59. CRP 1.4. Low grade temp of 100F on 11/23. Blood cultures 11/23 NGTD. Chest x-ray 11/23: lungs symmetrically aerated without evidence of mass, confluent infiltrate or effusion. Mild streaky opacity remains at the left lung base most consistent with scarring. No e/o PNA. UA 11/[address] Acosta evaluated the patient on 11/25 in regards to low-grade temps, and attributed it to DVT. Patient had a fever of 100.8 on 11/26. White blood cell count stable at 12.4. I contacted Dr. Miranda on 11/26 to discuss this as patient already had recent chest x-ray, UA, blood cultures, and T-spine and L-spine MRIs which were negative for infection. She states fever is due to DVT as this can occur for 1 week after acute DVT. Only low grade temp today. Tylenol prn fever Depression: admits to feeling depressed and angry. -Psychiatry consulted to which patient is agreeable. Right Subacute basal ganglia infarct, with L hemiplegia Aspirin continued Continue PT/OT/ST evaluations. PT indicates need for wheelchair and left ankle and foot orthosis as well as PT at rehabilitation. Luca ordered Extensive DVT LLE -Continue Xarelto Back pain MRI thoracic and lumbar spine 11/24 with disc protrusions but no evidence of infection. Continue with Tylenol when necessary One-time dose of [place] 7.5/325 given yesterday but scheduled narcotics will not be ordered. Hypertension -Cardizem 240 mg daily -Monitor and adjust medication as needed Tachycardia Monitor Anemia mild hemoglobin stable at 12.4. Monitor CBC Diabetes mellitus 2, uncontrolled, with A1c 7.1 BGL ranging from 153 to 178 today continue with Accu-Cheks with sliding scale insulin Levemir 5 units every 12 hours. Adjust as needed. Diabetic diet GI Prophylaxis: Protonix DVT prophylaxis: Xarelto Attending Statement Patient seen. Agree with above. Kirsten Fournier Nov 27, 2016 18:32 Josh Amanda MD Nov 28, 2016 07:20
[2016-11-27 20:00] VITALS: BP 122/99; PULSE 96; RESP 20; TEMP 98.8; O2SAT 99
[2016-11-27 22:00] VITALS: TEMP 100.3
[2016-11-28] MEDS: PENICILLIN G POTASSIUM INJ 4,000,000 UNITS in SODIUM CHLORIDE 0.9% INJ 100 ML IV SCH ×6 (02:14→22:01)
[2016-11-28] MEDS: ACETAMINOPHEN 325 MG TAB PO PRN (02:15)
[2016-11-28] MEDS: INSULIN ASPART SUPPLEMENTAL SCALE SQ SCH ×4 (06:39→20:27)
[2016-11-28 08:00] VITALS: BP 139/85; PULSE 103; RESP 20; TEMP 96.8; O2SAT 95
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
[2016-11-28] MEDS: ASPIRIN 81 MG CHEW TAB CHEW SCH (09:17)
[2016-11-28] MEDS: DILTIAZEM-CD 240 MG CAP ER PO SCH (09:17)
[2016-11-28] MEDS: RIVAROXABAN 15 MG TAB PO SCH ×2 (09:17→20:20)
[2016-11-28] MEDS: SENNOSIDES 8.6 MG TAB PO SCH (09:18)
[2016-11-28] MEDS: PANTOPRAZOLE SOD 40 MG DELAYED RELEASE TAB PO SCH (09:18)
[2016-11-28] MEDS: DOCUSATE SODIUM 100 MG CAP PO SCH ×2 (09:18→20:20)
[2016-11-28] MEDS: THIAMINE HCL 100 MG TAB PO SCH (09:18)
[2016-11-28] MEDS: INSULIN DETEMIR 100 UNITS/ML VIAL SQ SCH ×2 (09:32→20:28)
[2016-11-28] MEDS: SODIUM CHLORIDE 0.9% FLUSH 5 ML FLUSH FLUSH SCH ×2 (09:33→20:19)
[2016-11-28 11:33] VITALS: TEMP 99.3
--- NOTE | 2016-11-28 14:33 | HHI.PR ---
Subjective Remarks Follow-up for sepsis, endocarditis, pneumonia, meningitis with extensive LLE DVT on Xarelto. Temp 100.3 last night. Patient states he is exhausted. He does feel better about having seen the psychiatrist this morning. Objective Vitals Vital Signs Date Time Temp Pulse Resp B/P Pulse Ox O2 Delivery O2 Flow Rate FiO2 11/28/16 11:33 99.3 11/28/16 08:00 96.8 103 20 139/85 95 11/28/16 03:15 16 11/27/16 22:00 100.3 11/27/16 20:00 98.8 96 20 122/99 99 I/O 11/27/16 11/27/16 11/27/16 11/28/16 11/28/16 11/28/16 07:00 15:00 23:00 07:00 15:00 23:00 Intake Total 240 ml 1630 ml 1200 ml 480 ml Output Total 1000 ml 950 ml 1700 ml 1050 ml Balance -760 ml 680 ml -500 ml -570 ml Intake Oral 240 ml 1630 ml 1200 ml 480 ml Output Urine Total 1000 ml 950 ml 1700 ml 1050 ml # Bowel Movements 1 0 0 Result Diagram: 11/26/16 0650 11/24/16 1145 Objective Remarks GENERAL: Well-nourished, well developed patient no apparent distress SKIN: Warm and dry. CARDIOVASCULAR: Regular rate and rhythm. RESPIRATORY: No accessory muscle use. Clear to auscultation. Breath sounds equal bilaterally. GASTROINTESTINAL: Abdomen soft, non-tender, nondistended. MUSCULOSKELETAL: Left lower leg appears mildly larger than right. NEUROLOGICAL: Awake and alert. Weak dorsiflexion and plantarflexion of the left foot compared to normal strength on the right. Normal speech. PSYCHIATRIC: Insight and judgment normal. 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 Status: Acute (2) Bacterial meningitis ICD Code: G00.9 Status: Acute (3) Embolic stroke of left basal ganglia ICD Code: I63.40 Status: Acute Assessment and Plan Strep pneumonia meningitis, endocarditis, pneumonia and sepsis: Infectious disease following. Continue with Penicillin G 24 million units per day in divided doses end date per ID. CBC with diff, CMP, CRP once a week, next labs on 11/29/16. Last ESR elevated at 59. CRP 1.4. Low grade temp of 100F on 11/23. Blood cultures 11/23 NGTD. Chest x-ray 11/23: lungs symmetrically aerated without evidence of mass, confluent infiltrate or effusion. Mild streaky opacity remains at the left lung base most consistent with scarring. No e/o PNA. UA 11/[address] Acosta evaluated the patient on 11/25 in regards to low-grade temps, and attributed it to DVT. Patient had a fever of 100.8 on 11/26. White blood cell count stable at 12.4. I contacted Dr. Miranda on 11/26 to discuss this as patient already had recent chest x-ray, UA, blood cultures, and T-spine and L-spine MRIs which were negative for infection. She states fever is due to DVT as this can occur for 1 week after acute DVT. Patient with temp of 100.3 at 2200 hrs. but low-grade at 99.3 today, fever again likely attributed to DVT. Tylenol prn fever Unspecified personality disorder/Adjustment disorder with depressed mood/ Polysubstance dependence: -Psychiatry consultation appreciated. Patient was started on clonazepam, Seroquel, and Trazodone. Right Subacute basal ganglia infarct, with L hemiplegia Aspirin continued Continue PT/OT/ST evaluations. PT indicates need for wheelchair and left ankle and foot orthosis as well as PT at rehabilitation. Luca ordered Extensive DVT LLE -Continue Xarelto Back pain MRI thoracic and lumbar spine 11/24 with disc protrusions but no evidence of infection. Continue with Tylenol when necessary One-time dose of [place] 7.5/325 given yesterday but scheduled narcotics will not be ordered. Hypertension -Cardizem 240 mg daily -Monitor and adjust medication as needed Tachycardia Monitor Anemia mild hemoglobin stable at 12.4. Monitor CBC Diabetes mellitus 2, uncontrolled, with A1c 7.1 BGL ranging from 125 to 203 today. BGL 123 at 2100 hours last night. continue with Accu-Cheks with sliding scale insulin Continue Levemir 5 units every 12 hours. Adjust as needed. Diabetic diet GI Prophylaxis: Protonix DVT prophylaxis: Xarelto Attending Statement Patient seen. Agree with above. Kirsten Fournier Nov 28, 2016 14:33 Josh Amanda MD Nov 28, 2016 19:10
[2016-11-28] MEDS: clonazePAM 0.5 MG TAB PO SCH ×2 (14:38→20:20)
[2016-11-28 17:42] VITALS: TEMP 99.3
[2016-11-28 20:00] VITALS: BP 142/85; PULSE 100; RESP 18; TEMP 97.8; O2SAT 95
[2016-11-28] MEDS: traZODone HCL 100 MG TAB PO SCH (20:23)
[2016-11-28] MEDS: QUEtiapine FUMARATE 100 MG TAB PO SCH (20:31)
[2016-11-29] MEDS: PENICILLIN G POTASSIUM INJ 4,000,000 UNITS in SODIUM CHLORIDE 0.9% INJ 100 ML IV SCH ×6 (02:03→21:55)
[2016-11-29] MEDS: INSULIN ASPART SUPPLEMENTAL SCALE SQ SCH ×5 (06:19→21:00)
[2016-11-29 07:15] VITALS: BP 114/84; PULSE 108; RESP 24; TEMP 100.1; O2SAT 95
[2016-11-29 08:18] LABS: AUTOMATED NEUTROPHIL # 8.1 TH/MM3 (1.8-7.7); BASOPHIL # 0.1 TH/MM3 (0-0.2); BASOPHIL % 0.5 % (0.0-2.0); EOSINOPHIL # 0.3 TH/MM3 (0-0.4); EOSINOPHIL % 2.2 % (0.0-4.0); HEMATOCRIT 35.3 % (39.0-51.0); HEMO FLAGS DIFF FINAL; LYMPH % 25.2 % (9.0-44.0); LYMPHOCYTE # 3.2 TH/MM3 (1.0-4.8); MEAN CELL VOLUME 98.2 FL (80.0-100.0); MEAN CORPUSCULAR HEMOGLOBIN 32.7 PG (27.0-34.0); MEAN CORPUSCULAR HGB CONC 33.3 % (32.0-36.0); NEUT % 64.1 % (16.0-70.0); PLATELET COUNT 594 TH/MM3 (150-450); RED CELL DISTRIBUTION WIDTH 14.3 % (11.6-17.2); WHITE BLOOD COUNT 12.7 TH/MM3 (4.0-11.0)
[2016-11-29 08:23] LABS: CHLORIDE 101 MEQ/L (98-107); SODIUM (NA) 137 MEQ/L (136-145)
[2016-11-29 08:28] LABS: ANION GAP 11 MEQ/L (5-15); BICARBONATE 25.4 MEQ/L (21.0-32.0); BLOOD UREA NITROGEN 15 MG/DL (7-18)
[2016-11-29 08:31] LABS: ALT (GPT) 23 U/L (12-78); AST (GOT) 12 U/L (15-37)
[2016-11-29 08:32] LABS: GLOMERULAR FILTRATION RATE 115 ML/MIN (>89)
[2016-11-29 08:33] LABS: TOTAL BILIRUBIN ADULT 0.3 MG/DL (0.2-1.0)
[2016-11-29 08:34] LABS: ALKALINE PHOSPHATASE 85 U/L (45-117)
[2016-11-29] MEDS: SENNOSIDES 8.6 MG TAB PO SCH (09:00)
[2016-11-29] MEDS: DOCUSATE SODIUM 100 MG CAP PO SCH ×2 (09:22→21:56)
[2016-11-29] MEDS: PANTOPRAZOLE SOD 40 MG DELAYED RELEASE TAB PO SCH (09:22)
[2016-11-29] MEDS: INSULIN DETEMIR 100 UNITS/ML VIAL SQ SCH ×2 (09:22→21:56)
[2016-11-29] MEDS: SODIUM CHLORIDE 0.9% FLUSH 5 ML FLUSH FLUSH SCH ×2 (09:23→21:56)
[2016-11-29] MEDS: DILTIAZEM-CD 240 MG CAP ER PO SCH (09:23)
[2016-11-29] MEDS: THIAMINE HCL 100 MG TAB PO SCH (09:23)
[2016-11-29] MEDS: ASPIRIN 81 MG CHEW TAB CHEW SCH (09:23)
[2016-11-29] MEDS: clonazePAM 0.5 MG TAB PO SCH ×2 (09:23→21:56)
[2016-11-29] MEDS: ACETAMINOPHEN 325 MG TAB PO PRN (11:16)
[2016-11-29] MEDS: RIVAROXABAN 15 MG TAB PO SCH ×2 (11:45→21:56)
--- NOTE | 2016-11-29 12:30 | HHI.PR ---
Subjective Remarks Follow-up for sepsis, endocarditis, pneumonia, meningitis with extensive LLE DVT on Xarelto. Temp 100.1 this morning. Patient states he feels tired although just started psychiatric medications last night. He admits to headache. Denies any chest pain, shortness of breath, cough, abdominal pain, vomiting, diarrhea, or dysuria. Objective Vitals Vital Signs Date Time Temp Pulse Resp B/P Pulse Ox O2 Delivery O2 Flow Rate FiO2 11/29/16 07:15 100.1 108 24 114/84 95 11/28/16 20:00 97.8 100 18 142/85 95 11/28/16 17:42 99.3 I/O 11/28/16 11/28/16 11/28/16 11/29/16 11/29/16 11/29/16 07:00 15:00 23:00 07:00 15:00 23:00 Intake Total 480 ml 360 ml 1020 ml 360 ml Output Total 1050 ml 750 ml 650 ml 900 ml Balance -570 ml -390 ml 370 ml -540 ml Intake Oral 480 ml 360 ml 720 ml IV Total 300 ml 360 ml Output Urine Total 1050 ml 750 ml 650 ml 900 ml # Bowel Movements 0 1 0 0 Result Diagram: 11/29/16 0804 11/29/16 0804 Objective Remarks GENERAL: Well-nourished, well developed patient no apparent distress. Appears tired. SKIN: Warm and dry. CARDIOVASCULAR: Tachycardic rate and regular rhythm. RESPIRATORY: No accessory muscle use. Clear to auscultation. Breath sounds equal bilaterally. GASTROINTESTINAL: Normoactive bowel sounds. Abdomen soft, non-tender, nondistended. MUSCULOSKELETAL: Left lower leg appears larger than right, but no pitting edema. NEUROLOGICAL: Awake and alert. Normal speech. PSYCHIATRIC: Insight and judgment normal. 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 Continue with Penicillin G 24 million units per day in divided doses end date per ID. CBC with diff, CMP, CRP once a week. 11/29: WBC count stable at 12.7. CRP decreased at 0.52. ESR is relatively stable at 57 and may not be significantly decreased due to DVT. Next labs on 12/06/16. Low grade temp of 100F on 11/23. Blood cultures 11/23 NGTD. Chest x-ray 11/23: lungs symmetrically aerated without evidence of mass, confluent infiltrate or effusion. Mild streaky opacity remains at the left lung base most consistent with scarring. No e/o PNA. UA 11/[address] Acosta evaluated the patient on 11/25 in regards to low-grade temps, and attributed it to DVT. Patient had a fever of 100.8 on 11/26. I contacted Dr. Miranda on 11/26 to discuss this as patient already had recent chest x-ray, UA, blood cultures, and T-spine and L-spine MRIs which were negative for infection. She states fever is due to DVT as this can occur for 1 week after acute DVT. Patient with temp of 100.1 at 0715 hrs. but again likely attributed to DVT. If fevers persist past one week, will contact ID again. Tylenol prn fever Unspecified personality disorder/Adjustment disorder with depressed mood/ Polysubstance dependence: -Psychiatry consultation appreciated. Patient was started on clonazepam, Seroquel, and Trazodone. Right Subacute basal ganglia infarct, with L hemiplegia Aspirin continued Continue PT/OT/ST evaluations. PT indicates need for wheelchair and left ankle and foot orthosis as well as PT at rehabilitation. Trapeze ordered Extensive DVT LLE -Continue Xarelto Back pain MRI thoracic and lumbar spine 11/24 with disc protrusions but no evidence of infection. Continue with Tylenol when necessary Scheduled narcotics will not be ordered. Hypertension -Cardizem 240 mg daily -Monitor and adjust medication as needed Tachycardia Monitor Anemia Mild Hemoglobin stable at 11.8. Monitor CBC Diabetes mellitus 2, uncontrolled, with A1c 7.1 BGL 143 this morning. continue with Accu-Cheks with sliding scale insulin Continue Levemir 5 units every 12 hours. Adjust as needed. Diabetic diet GI Prophylaxis: Protonix DVT prophylaxis: Xarelto Attending Statement Patient seen. Agree with above. Kirsten Fournier Nov 29, 2016 12:30 Josh Amanda MD Nov 30, 2016 07:24
[2016-11-29 20:00] VITALS: BP 136/91; PULSE 100; RESP 19; TEMP 98; O2SAT 96
[2016-11-29] MEDS: QUEtiapine FUMARATE 100 MG TAB PO SCH (21:56)
[2016-11-29] MEDS: traZODone HCL 100 MG TAB PO SCH (21:56)
[2016-11-30] MEDS: PENICILLIN G POTASSIUM INJ 4,000,000 UNITS in SODIUM CHLORIDE 0.9% INJ 100 ML IV SCH ×6 (02:00→22:10)
[2016-11-30] MEDS: INSULIN ASPART SUPPLEMENTAL SCALE SQ SCH ×4 (06:28→21:34)
[2016-11-30 08:00] VITALS: BP 95/63; PULSE 111; RESP 20; TEMP 98.7; O2SAT 92
--- NOTE | 2016-11-30 08:47 | HHI.PR ---
Subjective Remarks Follow-up for sepsis, endocarditis, pneumonia, meningitis with extensive LLE DVT on Xarelto. No acute complaints. Denies any fevers or chills, chest pain, shortness of breath, cough, abdominal pain, vomiting, or diarrhea. Objective Vitals Vital Signs Date Time Temp Pulse Resp B/P Pulse Ox O2 Delivery O2 Flow Rate FiO2 11/30/16 08:00 98.7 111 20 95/63 92 11/29/16 20:00 98.0 100 19 136/91 96 11/29/16 12:16 18 I/O 11/29/16 11/29/16 11/29/16 11/30/16 11/30/16 11/30/16 07:00 15:00 23:00 07:00 15:00 23:00 Intake Total 360 ml 800 ml 360 ml 120 ml Output Total 900 ml 1075 ml 950 ml 1300 ml Balance -540 ml -275 ml -590 ml -1180 ml Intake Oral 800 ml 360 ml 120 ml IV Total 360 ml Output Urine Total 900 ml 1075 ml 950 ml 1300 ml # Bowel Movements 0 0 1 Result Diagram: 11/29/16 0804 11/29/16 0804 Objective Remarks GENERAL: Well-nourished, well developed patient no apparent distress. SKIN: Warm and dry. CARDIOVASCULAR: Mildly tachycardic with regular rhythm. RESPIRATORY: No accessory muscle use. Clear to auscultation. Breath sounds equal bilaterally. GASTROINTESTINAL: Abdomen soft, non-tender, nondistended. MUSCULOSKELETAL: No pitting edema of the LLE. NEUROLOGICAL: Awake and alert. Normal speech. PSYCHIATRIC: Insight and judgment normal. 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 Continue with Penicillin G 24 million units per day in divided doses end date per ID. CBC with diff, CMP, CRP once a week. 11/29: WBC count stable at 12.7. CRP decreased at 0.52. ESR is relatively stable at 57 and may not be significantly improved yet due to DVT. Next labs on 12/06/16. Low grade temp of 100F on 11/23. Blood cultures 11/23 NGTD. Chest x-ray 11/23: lungs symmetrically aerated without evidence of mass, confluent infiltrate or effusion. Mild streaky opacity remains at the left lung base most consistent with scarring. No e/o PNA. UA 11/[address] Acosta evaluated the patient on 11/25 in regards to low-grade temps, and attributed it to DVT. Patient had a fever of 100.8 on 11/26. I contacted Dr. Miranda on 11/26 to discuss this as patient already had recent chest x-ray, UA, blood cultures, and T-spine and L-spine MRIs which were negative for infection. She states fever is due to DVT as this can occur for 1 week after acute DVT. Afebrile over last 24 hours. If fevers persist past one week, will contact ID again. Tylenol prn fever Unspecified personality disorder/Adjustment disorder with depressed mood/ Polysubstance dependence: -Psychiatry consultation appreciated. Patient was started on clonazepam, Seroquel, and Trazodone. Right Subacute basal ganglia infarct, with L hemiplegia Aspirin continued Continue PT/OT/ST evaluations. PT indicates need for wheelchair and left ankle and foot orthosis as well as PT at rehabilitation. Trapeze ordered, still awaiting this. Extensive DVT LLE -Continue Xarelto Back pain MRI thoracic and lumbar spine 11/24 with disc protrusions but no evidence of infection. Continue with Tylenol when necessary Scheduled narcotics will not be ordered. Hypertension -Cardizem 240 mg daily -Monitor and adjust medication as needed Tachycardia Monitor Anemia Mild Hemoglobin stable at 11.8. Monitor CBC Diabetes mellitus 2, uncontrolled, with A1c 7.1 BGL 143 this morning. continue with Accu-Cheks with sliding scale insulin Continue Levemir 5 units every 12 hours. Adjust as needed. Diabetic diet GI Prophylaxis: Protonix DVT prophylaxis: Xarelto Attending Statement Patient seen. Agree with above. Kirsten Fournier Nov 30, 2016 08:47 Josh Aamnda MD Nov 30, 2016 14:54
[2016-11-30] MEDS: RIVAROXABAN 15 MG TAB PO SCH ×2 (09:57→21:29)
[2016-11-30] MEDS: SODIUM CHLORIDE 0.9% FLUSH 5 ML FLUSH FLUSH SCH ×2 (09:57→21:27)
[2016-11-30] MEDS: clonazePAM 0.5 MG TAB PO SCH ×2 (09:57→21:29)
[2016-11-30] MEDS: SENNOSIDES 8.6 MG TAB PO SCH (09:57)
[2016-11-30] MEDS: ASPIRIN 81 MG CHEW TAB CHEW SCH (09:57)
[2016-11-30] MEDS: DILTIAZEM-CD 240 MG CAP ER PO SCH (09:57)
[2016-11-30] MEDS: DOCUSATE SODIUM 100 MG CAP PO SCH ×2 (09:57→21:28)
[2016-11-30] MEDS: PANTOPRAZOLE SOD 40 MG DELAYED RELEASE TAB PO SCH (09:57)
[2016-11-30] MEDS: THIAMINE HCL 100 MG TAB PO SCH (09:57)
[2016-11-30] MEDS: INSULIN DETEMIR 100 UNITS/ML VIAL SQ SCH ×2 (09:58→21:00)
[2016-11-30 10:02] VITALS: BP 121/84; PULSE 116; RESP 20; O2SAT 92
[2016-11-30 16:30] VITALS: O2SAT 94
[2016-11-30 20:00] VITALS: BP 103/91; PULSE 107; RESP 20; TEMP 98.9; O2SAT 97
[2016-11-30 20:30] VITALS: O2SAT 93
[2016-11-30] MEDS: traZODone HCL 100 MG TAB PO SCH (21:00)
[2016-11-30] MEDS: QUEtiapine FUMARATE 100 MG TAB PO SCH (21:29)
[2016-12-01] MEDS: PENICILLIN G POTASSIUM INJ 4,000,000 UNITS in SODIUM CHLORIDE 0.9% INJ 100 ML IV SCH ×6 (02:05→22:09)
[2016-12-01] MEDS: INSULIN ASPART SUPPLEMENTAL SCALE SQ SCH ×4 (06:04→20:16)
[2016-12-01 08:00] VITALS: BP 105/74; PULSE 106; RESP 20; TEMP 98.8; O2SAT 92
[2016-12-01] MEDS: INSULIN DETEMIR 100 UNITS/ML VIAL SQ SCH ×2 (09:18→20:16)
[2016-12-01] MEDS: SENNOSIDES 8.6 MG TAB PO SCH (09:20)
[2016-12-01] MEDS: clonazePAM 0.5 MG TAB PO SCH ×2 (09:20→20:15)
[2016-12-01] MEDS: ASPIRIN 81 MG CHEW TAB CHEW SCH (09:20)
[2016-12-01] MEDS: PANTOPRAZOLE SOD 40 MG DELAYED RELEASE TAB PO SCH (09:20)
[2016-12-01] MEDS: DOCUSATE SODIUM 100 MG CAP PO SCH ×2 (09:20→20:17)
[2016-12-01] MEDS: DILTIAZEM-CD 240 MG CAP ER PO SCH (09:20)
[2016-12-01] MEDS: THIAMINE HCL 100 MG TAB PO SCH (09:20)
[2016-12-01] MEDS: RIVAROXABAN 15 MG TAB PO SCH ×2 (09:20→20:15)
[2016-12-01] MEDS: SODIUM CHLORIDE 0.9% FLUSH 5 ML FLUSH FLUSH SCH ×2 (09:23→20:17)
--- NOTE | 2016-12-01 12:20 | HHI.PR ---
Subjective Remarks Follow-up for sepsis, endocarditis, pneumonia, meningitis with extensive LLE DVT on Xarelto. The patient is wondering if his psychiatric medications can be decreased as he feels "hung over". He denies any chest pain or shortness of breath. Objective Vitals Vital Signs Date Time Temp Pulse Resp B/P Pulse Ox O2 Delivery O2 Flow Rate FiO2 12/01/16 08:00 98.8 106 20 105/74 92 11/30/16 20:30 93 21 11/30/16 20:00 98.9 107 20 103/91 97 11/30/16 16:30 94 21 I/O 11/30/16 11/30/16 11/30/16 12/01/16 12/01/16 12/01/16 07:00 15:00 23:00 07:00 15:00 23:00 Intake Total 120 ml 1000 ml 240 ml 240 ml 0 ml Output Total 1300 ml 1350 ml 300 ml 1000 ml Balance -1180 ml -350 ml -60 ml -760 ml 0 ml Intake Oral 120 ml 1000 ml 240 ml 240 ml IV Total 0 ml Output Urine Total 1300 ml 1350 ml 300 ml 1000 ml # Bowel Movements 0 Result Diagram: 11/29/16 0804 11/29/16 0804 Objective Remarks GENERAL: Well-nourished, well developed patient no apparent distress. SKIN: Warm and dry. CARDIOVASCULAR: Mildly tachycardic with regular rhythm. RESPIRATORY: No accessory muscle use. Clear to auscultation. Breath sounds equal bilaterally. GASTROINTESTINAL: Normoactive bowel sounds. Abdomen soft, non-tender, nondistended. MUSCULOSKELETAL: No pitting edema of the LLE. NEUROLOGICAL: Awake and alert. Normal speech. PSYCHIATRIC: Insight and judgment normal. 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 Continue with Penicillin G 24 million units per day in divided doses end date per ID. CBC with diff, CMP, CRP once a week. 11/29: WBC count stable at 12.7. CRP decreased at 0.52. ESR is relatively stable at 57 and may not be significantly improved yet due to DVT. Next labs on 12/06/16. Blood cultures 11/23 NGTD. Chest x-ray 11/23: lungs symmetrically aerated without evidence of mass, confluent infiltrate or effusion. Mild streaky opacity remains at the left lung base most consistent with scarring. No e/o PNA. UA 11/[address] Acosta evaluated the patient on 11/25 in regards to low-grade temps, and attributed it to DVT. Patient had a fever of 100.8 on 11/26. I contacted Dr. Miranda on 11/26 to discuss this as patient already had recent chest x-ray, UA, blood cultures, and T-spine and L-spine MRIs which were negative for infection. She states fever is due to DVT as this can occur for 1 week after acute DVT. Afebrile over last 48 hours. If fevers returns, will contact ID again in regards to this. Tylenol prn fever Unspecified personality disorder/Adjustment disorder with depressed mood/ Polysubstance dependence: -Psychiatry consultation appreciated. Patient was started on clonazepam, Seroquel, and Trazodone. -12/01: Patient feels overly tired due to Trazodone and Seroquel at night. I spoke with Dr. Guzman who is agreeable to reducing dose of both to 50 mg. I have made this change. Dr. Guzman to evaluate patient today. Right Subacute basal ganglia infarct, with L hemiplegia Aspirin continued Continue PT/OT/ST evaluations. PT indicates need for wheelchair and left ankle and foot orthosis as well as PT at rehabilitation. Trapeze ordered, still awaiting this. Extensive DVT LLE -Continue Xarelto Back pain MRI thoracic and lumbar spine 11/24 with disc protrusions but no evidence of infection. Continue with Tylenol when necessary Scheduled narcotics will not be ordered. Hypertension -Cardizem 240 mg daily -Monitor and adjust medication as needed Tachycardia Monitor Anemia Mild Hemoglobin stable at 11.8. Monitor CBC Diabetes mellitus 2, uncontrolled, with A1c 7.1 BGL 145 this morning. Continue with Accu-Cheks with sliding scale insulin Continue Levemir 5 units every 12 hours. Adjust as needed. May need to go up on morning dose of Levemir but will see what BGL readings are for this afternoon and evening prior to making any changes. Diabetic diet GI Prophylaxis: Protonix DVT prophylaxis: Xarelto Attending Statement Patient seen. Agree with above. Discussed with Dr. Guzman. Kirsten Fournier Dec 01, 2016 12:19 Josh Amanda MD Dec 02, 2016 07:44
--- NOTE | 2016-12-01 16:18 | HHI.PYPN ---
Subjective Remarks Patient was seen today for psychiatric evaluation, he was accompanied by his girlfriend, he agreed that she can be present during the evaluation, patient was calm, cooperative and pleasant. He explains that he has been doing much better, he has been responding well to the medication, but reports daily sedation and morning "hangover", but his anxiety, depression and insomnia have been well controlled. Patient denies depressive symptoms, he denies current anxiety, he denies suicidal or homicidal ideation, denies visual and auditory hallucinations. No agitation or aggressive behavior reported. Review of Systems Constitutional: DENIES: Diaphoretic episodes, Fatigue, Fever, Weight gain, Weight loss, Chills, Dizziness, Change in appetite, Night Sweats Endocrine: DENIES: Heat/cold intolerance, Polydipsia, Polyuria, Polyphagia Eyes: DENIES: Blurred vision, Diplopia, Eye inflammation, Eye pain, Vision loss , Photosensitivity, Double Vision Ears, nose, mouth, throat: DENIES: Tinnitus, Hearing loss, Vertigo, Nasal discharge, Oral lesions, Throat pain, Hoarseness, Ear Pain, Running Nose, Epistaxis, Sinus Pain, Toothache, Odynophagia Cardiovascular: DENIES: Chest pain, Palpitations, Syncope, Dyspnea on Exertion , PND, Lower Extremity Edema, Orthopnea, Claudication Musculoskeletal: DENIES: Joint pain, Muscle aches, Stiffness, Joint Swelling, Back pain, Neck pain Integumentary: DENIES: Abnormal pigmentation, Nail changes, Pruritus, Rash Hematologic/lymphatic: DENIES: Bruising, Lymphadenopathy Neurologic: DENIES: Abnormal gait, Headache, Localized weakness, Paresthesias, Seizures, Speech Problems, Tremor, Poor Balance Psychiatric: COMPLAINS OF: Anxiety, Confusion, Mood changes, Depression, Hallucinations, Agitation, Suicidal Ideation, Homicidal Ideation, Delusions Objective Alert: Yes [place]: Person, Place, Date, Situation Mood: Calm Affect: Euthymic Memory Intact: Immediate, Recent, Remote Hallucinations: Other (none) Delusions: No Delusion Type: Other (none) Suicidal: Ideation (he denies) Homicidal: Ideation (he denies) Insight/Judgement Fair Vitals/IOs Vital Signs Date Time Temp Pulse Resp B/P Pulse Ox O2 Delivery O2 Flow Rate FiO2 12/01/16 08:00 98.8 106 20 105/74 92 11/30/16 20:30 21 Intake and Output 11/30/16 11/30/16 11/30/16 07:59 15:59 23:59 Intake Total 120 ml 1000 ml 240 ml Output Total 350 ml 1350 ml 300 ml Balance -230 ml -350 ml -60 ml Assessment & Plan Problem List: (1) 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 (2) Adjustment disorder with depressed mood Assessment & Plan: Will decrease trazodone to 50 mg and Seroquel to 50 mg due to sedation and grogginess in the morning. Can continue clonazepam 0.5 mg twice a day. Extensive support psycho educational motivation provided . ICD Code: F43.21 (3) Polysubstance dependence ICD Code: F19.20 Assessment & Plan Estimated LOS: days Justification for Cont. Inpt. No psychiatric hospitalization is indicated at this moment. Jonnathan Guzman MD Dec 01, 2016 16:18
[2016-12-01 20:00] VITALS: BP 131/87; PULSE 101; RESP 20; TEMP 100.4; O2SAT 93; O2SAT 95
[2016-12-01] MEDS: QUEtiapine FUMARATE 25 MG TAB PO SCH (20:15)
[2016-12-01] MEDS: traZODone HCL 50 MG TAB PO SCH (20:15)
[2016-12-02] MEDS: PENICILLIN G POTASSIUM INJ 4,000,000 UNITS in SODIUM CHLORIDE 0.9% INJ 100 ML IV SCH ×6 (02:02→22:11)
[2016-12-02] MEDS: INSULIN ASPART SUPPLEMENTAL SCALE SQ SCH ×4 (05:26→20:17)
[2016-12-02] MEDS: ACETAMINOPHEN 325 MG TAB PO PRN ×2 (05:31→16:35)
[2016-12-02 07:57] VITALS: O2SAT 94
[2016-12-02 08:00] VITALS: BP 103/85; PULSE 99; RESP 20; TEMP 96.5; O2SAT 94
[2016-12-02] MEDS: DOCUSATE SODIUM 100 MG CAP PO SCH ×2 (09:00→20:15)
[2016-12-02] MEDS: ASPIRIN 81 MG CHEW TAB CHEW SCH (09:00)
[2016-12-02] MEDS: SODIUM CHLORIDE 0.9% FLUSH 5 ML FLUSH FLUSH SCH ×2 (09:00→20:15)
[2016-12-02] MEDS: SENNOSIDES 8.6 MG TAB PO SCH (09:17)
[2016-12-02] MEDS: THIAMINE HCL 100 MG TAB PO SCH (09:17)
[2016-12-02] MEDS: clonazePAM 0.5 MG TAB PO SCH ×2 (09:17→20:16)
[2016-12-02] MEDS: DILTIAZEM-CD 240 MG CAP ER PO SCH (09:17)
[2016-12-02] MEDS: PANTOPRAZOLE SOD 40 MG DELAYED RELEASE TAB PO SCH (09:18)
[2016-12-02] MEDS: INSULIN DETEMIR 100 UNITS/ML VIAL SQ SCH ×2 (09:18→20:18)
[2016-12-02] MEDS: RIVAROXABAN 15 MG TAB PO SCH ×2 (09:18→20:17)
--- NOTE | 2016-12-02 15:24 | HHI.PR ---
Subjective Remarks Patient seen and examined today. Patient denies any new complaints. Patient states that he is getting stronger. Antibiotics ended today. Objective Vitals Vital Signs Date Time Temp Pulse Resp B/P Pulse Ox O2 Delivery O2 Flow Rate FiO2 12/02/16 08:00 96.5 99 20 103/85 94 12/02/16 07:57 94 21 12/01/16 20:00 93 12/01/16 20:00 100.4 101 20 131/87 95 I/O 12/01/16 12/01/16 12/01/16 12/02/16 12/02/16 12/02/16 07:00 15:00 23:00 07:00 15:00 23:00 Intake Total 240 ml 600 ml 120 ml 240 ml 240 ml Output Total 1000 ml 750 ml 700 ml 5 ml 2 ml Balance -760 ml -150 ml -580 ml 235 ml 238 ml Intake Oral 240 ml 600 ml 120 ml 240 ml 240 ml IV Total 0 ml Output Urine Total 1000 ml 750 ml 700 ml 5 ml 2 ml # Voids 3 # Bowel Movements 0 1 0 Result Diagram: 11/29/16 0804 11/29/16 0804 Objective Remarks GENERAL: This is a well-nourished, well-developed patient, in no apparent distress. GENERAL: Well-developed, well-nourished, in no acute distress. alert and orientated HEENT: Head is normocephalic without any lesions or masses noted. Patient does have left-sided facial droop. Eyes: Extraocular muscles are intact. Conjunctivae were clear. NECK: Supple without any masses. Trachea midline no deviation. No JVD, CARDIAC: Regular rhythm, regular rate. S1/S2 are heard. No murmurs gallops or rubs. LUNGS: Clear to auscultation bilaterally. No wheeze, rhonchi or rales. No use of accessory muscles on inspiration or expiration. ABDOMEN: Soft, nontender. Nondistended. Bowel sounds heard in all 4 quadrants. No organomegaly or masses. Negative rebound, negative guarding EXTREMITIES: No edema, pulses are equal bilaterally. No cyanosis or clubbing NEUROLOGY: Mood and affect appear appropriate. Patient able to flex and extend left ankle. Patient without any strength in the left upper extremity. Right upper and lower extremity with 5/5 strength in 2+ deep tendon reflexes Urinary Catheter: No Vascular Central Line Catheter: No A/P Assessment and Plan Strep pneumonia meningitis, endocarditis, sepsis: Infectious disease will need to be reconsulted since the patient left the hospital and patient with low-grade fever Continue Penicillin G 24 million units per day in divided doses, with end date 12/02/16 CBC with diff, CMP, CRP once a week Blood cultures negative for 5 days, urinalysis clear, Chest x-rays shows mild streaky opacity in the left lung base consistent with scarring DVT of the left lower extremity Patient on Xarelto Right Subacute basal ganglia infarct, with L hemiplegia Aspirin continued Continue PT/OT/ST evaluations Hypertension Cardizem 240 mg daily Diabetes mellitus 2, uncontrolled, Recent A1c 7.1 Accu-Cheks with sliding scale insulin Levemir 5 units every 12 hours Adjustment disorder with depressed mood Psychiatry has evaluated the patient and recommended medication changes. Trazodone 50 mg at bedtime Seroquel 50 mg at bedtime Klonopin 0.5 mg every 12 hours GI Prophylaxis: Protonix. DVT prophylaxis: Xarelto Discharge Planning Case management for discharge planning. Patient has completed antibiotics at this time. Patient still with left hemiplegia. Patient will likely stay in the hospital until able to ambulate home, once PT/OT clears the patient's to discharge home with home health care and home health care can be arranged by [facility] Attending Statement Patient seen. Agree with above. Josh Taylor Dec 02, 2016 15:24 Josh Amanda MD Dec 02, 2016 18:30
[2016-12-02 20:00] VITALS: BP 115/85; PULSE 99; RESP 18; TEMP 98.4; O2SAT 94; O2SAT 95
[2016-12-02] MEDS: QUEtiapine FUMARATE 25 MG TAB PO SCH (20:16)
[2016-12-02] MEDS: traZODone HCL 50 MG TAB PO SCH (20:16)
[2016-12-03] MEDS: ACETAMINOPHEN 325 MG TAB PO PRN ×2 (04:50→16:01)
[2016-12-03] MEDS: INSULIN ASPART SUPPLEMENTAL SCALE SQ SCH ×4 (06:33→20:30)
[2016-12-03 08:00] VITALS: BP 130/69; PULSE 95; RESP 20; TEMP 98.7; O2SAT 93
[2016-12-03] MEDS: DILTIAZEM-CD 240 MG CAP ER PO SCH (08:39)
[2016-12-03] MEDS: DOCUSATE SODIUM 100 MG CAP PO SCH ×2 (08:39→20:29)
[2016-12-03] MEDS: clonazePAM 0.5 MG TAB PO SCH ×2 (08:39→20:29)
[2016-12-03] MEDS: PANTOPRAZOLE SOD 40 MG DELAYED RELEASE TAB PO SCH (08:39)
[2016-12-03] MEDS: SENNOSIDES 8.6 MG TAB PO SCH (08:40)
[2016-12-03] MEDS: SODIUM CHLORIDE 0.9% FLUSH 5 ML FLUSH FLUSH SCH (08:40)
[2016-12-03] MEDS: ASPIRIN 81 MG CHEW TAB CHEW SCH (08:40)
[2016-12-03] MEDS: THIAMINE HCL 100 MG TAB PO SCH (08:40)
[2016-12-03] MEDS: RIVAROXABAN 15 MG TAB PO SCH ×2 (08:40→20:29)
[2016-12-03] MEDS: INSULIN DETEMIR 100 UNITS/ML VIAL SQ SCH ×2 (08:45→20:32)
[2016-12-03 09:04] VITALS: O2SAT 94
--- NOTE | 2016-12-03 11:07 | HHI.PR ---
Subjective Remarks Patient seen and examined today. Patient denies any new complaints. Patient now longer on IV antibiotics. Awaiting patient physically able to go home Objective Vitals Vital Signs Date Time Temp Pulse Resp B/P Pulse Ox O2 Delivery O2 Flow Rate FiO2 12/03/16 09:04 94 12/03/16 08:00 98.7 95 20 130/69 93 12/03/16 05:50 16 12/02/16 20:00 94 21 12/02/16 20:00 98.4 99 18 115/85 95 I/O 12/02/16 12/02/16 12/02/16 12/03/16 12/03/16 12/03/16 07:00 15:00 23:00 07:00 15:00 23:00 Intake Total 690 ml 720 ml 480 ml Output Total 455 ml 902 ml 300 ml Balance 235 ml -182 ml 180 ml Intake Oral 690 ml 720 ml 480 ml Output Urine Total 455 ml 902 ml 300 ml # Voids 2 # Bowel Movements 0 0 0 Result Diagram: 11/29/1680311/29/16 08 Objective Remarks GENERAL: This is a well-nourished, well-developed patient, in no apparent distress. GENERAL: Well-developed, well-nourished, in no acute distress. alert and orientated HEENT: Head is normocephalic without any lesions or masses noted. Patient does have left-sided facial droop. Eyes: Extraocular muscles are intact. Conjunctivae were clear. NECK: Supple without any masses. Trachea midline no deviation. No JVD, CARDIAC: Regular rhythm, regular rate. S1/S2 are heard. No murmurs gallops or rubs. LUNGS: Clear to auscultation bilaterally. No wheeze, rhonchi or rales. No use of accessory muscles on inspiration or expiration. ABDOMEN: Soft, nontender. Nondistended. Bowel sounds heard in all 4 quadrants. No organomegaly or masses. Negative rebound, negative guarding EXTREMITIES: No edema, pulses are equal bilaterally. No cyanosis or clubbing NEUROLOGY: Mood and affect appear appropriate. Patient able to flex and extend left ankle. Patient without any strength in the left upper extremity. Right upper and lower extremity with 5/5 strength in 2+ deep tendon reflexes Urinary Catheter: No Vascular Central Line Catheter: No A/P Assessment and Plan Right Subacute basal ganglia infarct, with L hemiplegia Aspirin continued Continue PT/OT/ST evaluations Strep pneumonia meningitis, endocarditis, sepsis: Treated Infectious disease will need to be reconsulted since the patient left the hospital and patient with low-grade fever Completed Penicillin G 24 million units, end date 12/02/16 Blood cultures negative for 5 days, urinalysis clear, Chest x-rays shows mild streaky opacity in the left lung base consistent with scarring DVT of the left lower extremity Patient on Xarelto Hypertension Cardizem 240 mg daily Diabetes mellitus 2, uncontrolled, Recent A1c 7.1 Accu-Cheks with sliding scale insulin Levemir 5 units every 12 hours Adjustment disorder with depressed mood Psychiatry has evaluated the patient and recommended medication changes. Trazodone 50 mg at bedtime Seroquel 50 mg at bedtime Klonopin 0.5 mg every 12 hours GI Prophylaxis: Protonix. DVT prophylaxis: Xarelto Discharge Planning Case management for discharge planning. Patient has completed antibiotics at this time. Patient still with left hemiplegia. Patient will likely stay in the hospital until able to ambulate home, once PT/OT clears the patient's to discharge home with home health care and home health care can be arranged by [facility] Attending Statement Patient seen. Agree with above. Josh Taylor Dec 03, 2016 11:06 Josh Amanda MD Dec 03, 2016 18:00
[2016-12-03 20:00] VITALS: BP 110/75; PULSE 94; RESP 22; TEMP 98.6; O2SAT 94
[2016-12-03] MEDS: traZODone HCL 50 MG TAB PO SCH (20:29)
[2016-12-03] MEDS: QUEtiapine FUMARATE 25 MG TAB PO SCH (20:29)
[2016-12-04] MEDS: INSULIN ASPART SUPPLEMENTAL SCALE SQ SCH ×4 (06:44→21:00)
[2016-12-04 08:12] VITALS: BP 112/80; PULSE 106; RESP 18; TEMP 98.9; O2SAT 93
[2016-12-04] MEDS: ASPIRIN 81 MG CHEW TAB CHEW SCH (08:27)
[2016-12-04] MEDS: SENNOSIDES 8.6 MG TAB PO SCH (08:27)
[2016-12-04] MEDS: DILTIAZEM-CD 240 MG CAP ER PO SCH (08:27)
[2016-12-04] MEDS: clonazePAM 0.5 MG TAB PO SCH ×2 (08:28→21:22)
[2016-12-04] MEDS: THIAMINE HCL 100 MG TAB PO SCH (08:28)
[2016-12-04] MEDS: PANTOPRAZOLE SOD 40 MG DELAYED RELEASE TAB PO SCH (08:28)
[2016-12-04] MEDS: RIVAROXABAN 15 MG TAB PO SCH ×2 (08:28→21:22)
[2016-12-04] MEDS: DOCUSATE SODIUM 100 MG CAP PO SCH ×2 (08:28→21:22)
[2016-12-04] MEDS: INSULIN DETEMIR 100 UNITS/ML VIAL SQ SCH ×2 (08:29→21:25)
[2016-12-04] MEDS: ACETAMINOPHEN 325 MG TAB PO PRN ×2 (08:32→18:50)
--- NOTE | 2016-12-04 10:14 | HHI.PR ---
Subjective Remarks Patient seen and examined today. Patient denies any new problems. Patient along receiving antibiotics. Awaiting physical capacity to go home. Objective Vitals Vital Signs Date Time Temp Pulse Resp B/P Pulse Ox O2 Delivery O2 Flow Rate FiO2 12/04/16 08:12 98.9 106 18 112/80 93 12/03/16 21:55 21 12/03/16 20:00 98.6 94 22 110/75 94 12/03/16 17:01 20 I/O 12/03/16 12/03/16 12/03/16 12/04/16 12/04/16 12/04/16 07:00 15:00 23:00 07:00 15:00 23:00 Intake Total 480 ml 480 ml 600 ml Output Total 300 ml 750 ml 550 ml Balance 180 ml -270 ml 50 ml Intake Oral 480 ml 480 ml 600 ml Output Urine Total 300 ml 750 ml 550 ml # Voids 2 # Bowel Movements 0 1 0 Objective Remarks GENERAL: This is a well-nourished, well-developed patient, in no apparent distress. GENERAL: Well-developed, well-nourished, in no acute distress. alert and orientated HEENT: Head is normocephalic without any lesions or masses noted. Patient does have left-sided facial droop. Eyes: Extraocular muscles are intact. Conjunctivae were clear. NECK: Supple without any masses. Trachea midline no deviation. No JVD, CARDIAC: Regular rhythm, regular rate. S1/S2 are heard. No murmurs gallops or rubs. LUNGS: Clear to auscultation bilaterally. No wheeze, rhonchi or rales. No use of accessory muscles on inspiration or expiration. ABDOMEN: Soft, nontender. Nondistended. Bowel sounds heard in all 4 quadrants. No organomegaly or masses. Negative rebound, negative guarding EXTREMITIES: No edema, pulses are equal bilaterally. No cyanosis or clubbing NEUROLOGY: Mood and affect appear appropriate. Patient able to flex and extend left ankle. Patient without any strength in the left upper extremity. Right upper and lower extremity with 5/5 strength in 2+ deep tendon reflexes Urinary Catheter: No Vascular Central Line Catheter: No A/P Assessment and Plan Right Subacute basal ganglia infarct, with L hemiplegia Aspirin continued Continue PT/OT/ST evaluations Strep pneumonia meningitis, endocarditis, sepsis: Treated Infectious disease will need to be reconsulted since the patient left the hospital and patient with low-grade fever Completed Penicillin G 24 million units, end date 12/02/16 Blood cultures negative for 5 days, urinalysis clear, Chest x-rays shows mild streaky opacity in the left lung base consistent with scarring DVT of the left lower extremity Patient on Xarelto Hypertension Cardizem 240 mg daily Diabetes mellitus 2, uncontrolled, Recent A1c 7.1 Accu-Cheks with sliding scale insulin Levemir 5 units every 12 hours Adjustment disorder with depressed mood Psychiatry has evaluated the patient and recommended medication changes. Trazodone 50 mg at bedtime Seroquel 50 mg at bedtime Klonopin 0.5 mg every 12 hours GI Prophylaxis: Protonix. DVT prophylaxis: Xarelto Discharge Planning Case management for discharge planning. Patient has completed antibiotics at this time. Patient still with left hemiplegia. Patient will likely stay in the hospital until able to ambulate home, once PT/OT clears the patient's to discharge home with home health care and home health care can be arranged by [facility] Josh Taylor Dec 04, 2016 10:14
[2016-12-04 20:00] VITALS: BP 120/83; PULSE 98; RESP 19; TEMP 100.2; O2SAT 96
[2016-12-04] MEDS: traZODone HCL 50 MG TAB PO SCH (21:22)
[2016-12-04] MEDS: QUEtiapine FUMARATE 25 MG TAB PO SCH (21:22)
[2016-12-05] MEDS: INSULIN ASPART SUPPLEMENTAL SCALE SQ SCH ×4 (06:32→21:00)
[2016-12-05] MEDS: ASPIRIN 81 MG CHEW TAB CHEW SCH (08:44)
[2016-12-05] MEDS: clonazePAM 0.5 MG TAB PO SCH ×2 (08:44→21:20)
[2016-12-05] MEDS: DOCUSATE SODIUM 100 MG CAP PO SCH ×2 (08:44→21:20)
[2016-12-05] MEDS: THIAMINE HCL 100 MG TAB PO SCH (08:44)
[2016-12-05] MEDS: PANTOPRAZOLE SOD 40 MG DELAYED RELEASE TAB PO SCH (08:44)
[2016-12-05] MEDS: SENNOSIDES 8.6 MG TAB PO SCH (08:45)
[2016-12-05] MEDS: DILTIAZEM-CD 240 MG CAP ER PO SCH (08:45)
[2016-12-05] MEDS: RIVAROXABAN 15 MG TAB PO SCH ×2 (08:45→21:21)
[2016-12-05] MEDS: ACETAMINOPHEN 325 MG TAB PO PRN (08:50)
[2016-12-05] MEDS: INSULIN DETEMIR 100 UNITS/ML VIAL SQ SCH ×2 (08:50→21:25)
[2016-12-05 10:15] VITALS: BP 127/75; PULSE 116; RESP 19; TEMP 97.9; O2SAT 94
--- NOTE | 2016-12-05 11:36 | HHI.PR ---
Subjective Remarks Patient seen and examined today. Patient denies any new complaints. No change clinical status. Objective Vitals Vital Signs Date Time Temp Pulse Resp B/P Pulse Ox O2 Delivery O2 Flow Rate FiO2 12/05/16 10:15 97.9 116 19 127/75 94 12/04/16 20:00 100.2 98 19 120/83 96 12/04/16 19:50 16 I/O 12/04/16 12/04/16 12/04/16 12/05/16 12/05/16 12/05/16 07:00 15:00 23:00 07:00 15:00 23:00 Intake Total 600 ml 890 ml 240 ml 0 ml Output Total 550 ml 1800 ml 1000 ml 250 ml Balance 50 ml -910 ml -760 ml -250 ml Intake Oral 600 ml 890 ml 240 ml Other 0 ml Output Urine Total 550 ml 1800 ml 1000 ml 250 ml # Bowel Movements 0 1 Objective Remarks GENERAL: This is a well-nourished, well-developed patient, in no apparent distress. GENERAL: Well-developed, well-nourished, in no acute distress. alert and orientated HEENT: Head is normocephalic without any lesions or masses noted. Patient does have left-sided facial droop. Eyes: Extraocular muscles are intact. Conjunctivae were clear. NECK: Supple without any masses. Trachea midline no deviation. No JVD, CARDIAC: Regular rhythm, regular rate. S1/S2 are heard. No murmurs gallops or rubs. LUNGS: Clear to auscultation bilaterally. No wheeze, rhonchi or rales. No use of accessory muscles on inspiration or expiration. ABDOMEN: Soft, nontender. Nondistended. Bowel sounds heard in all 4 quadrants. No organomegaly or masses. Negative rebound, negative guarding EXTREMITIES: No edema, pulses are equal bilaterally. No cyanosis or clubbing NEUROLOGY: Mood and affect appear appropriate. Patient able to flex and extend left ankle. Patient without any strength in the left upper extremity. Right upper and lower extremity with 5/5 strength in 2+ deep tendon reflexes Urinary Catheter: No Vascular Central Line Catheter: No A/P Assessment and Plan Right Subacute basal ganglia infarct, with L hemiplegia Aspirin continued Continue PT/OT/ST evaluations Strep pneumonia meningitis, endocarditis, sepsis: Treated Infectious disease will need to be reconsulted since the patient left the hospital and patient with low-grade fever Completed Penicillin G 24 million units, end date 12/02/16 Blood cultures negative for 5 days, urinalysis clear, Chest x-rays shows mild streaky opacity in the left lung base consistent with scarring DVT of the left lower extremity Patient on Xarelto Hypertension Cardizem 240 mg daily Diabetes mellitus 2, uncontrolled, Recent A1c 7.1 Accu-Cheks with sliding scale insulin Levemir 5 units every 12 hours Adjustment disorder with depressed mood Psychiatry has evaluated the patient and recommended medication changes. Trazodone 50 mg at bedtime Seroquel 50 mg at bedtime Klonopin 0.5 mg every 12 hours GI Prophylaxis: Protonix. DVT prophylaxis: Xarelto Discharge Planning Case management for discharge planning. Patient has completed antibiotics at this time. Patient still with left hemiplegia. Patient will likely stay in the hospital until able to ambulate home, once PT/OT clears the patient's to discharge home with home health care and home health care can be arranged by [facility] Josh Taylor Dec 05, 2016 11:36
[2016-12-05 20:00] VITALS: BP_SYST 121; BP_SYST 127; BP_DIAS 81; BP_DIAS 85; PULSE 104; PULSE 86; RESP 19; RESP 20; TEMP 100.5; TEMP 98; O2SAT 96; O2SAT 97
[2016-12-05] MEDS: traZODone HCL 50 MG TAB PO SCH (21:21)
[2016-12-05] MEDS: QUEtiapine FUMARATE 25 MG TAB PO SCH (21:22)
[2016-12-06 06:10] LABS: AUTOMATED NEUTROPHIL # 6.9 TH/MM3 (1.8-7.7); BASOPHIL # 0.1 TH/MM3 (0-0.2); BASOPHIL % 0.7 % (0.0-2.0); EOSINOPHIL # 0.4 TH/MM3 (0-0.4); EOSINOPHIL % 3.4 % (0.0-4.0); HEMATOCRIT 33.2 % (39.0-51.0); HEMO FLAGS DIFF FINAL; LYMPH % 27.9 % (9.0-44.0); LYMPHOCYTE # 3.2 TH/MM3 (1.0-4.8); MEAN CELL VOLUME 96.6 FL (80.0-100.0); MEAN CORPUSCULAR HGB CONC 33.2 % (32.0-36.0); PLATELET COUNT 486 TH/MM3 (150-450); RED BLOOD COUNT 3.44 MIL/MM3 (4.50-5.90); RED CELL DISTRIBUTION WIDTH 13.6 % (11.6-17.2); WHITE BLOOD COUNT 11.4 TH/MM3 (4.0-11.0)
[2016-12-06 06:15] LABS: CHLORIDE 101 MEQ/L (98-107); POTASSIUM 3.9 MEQ/L (3.5-5.1); SODIUM (NA) 138 MEQ/L (136-145)
[2016-12-06 06:22] LABS: ANION GAP 10 MEQ/L (5-15); BICARBONATE 26.7 MEQ/L (21.0-32.0); BLOOD UREA NITROGEN 12 MG/DL (7-18)
[2016-12-06 06:25] LABS: ALT (GPT) 15 U/L (12-78); AST (GOT) 8 U/L (15-37); GLOMERULAR FILTRATION RATE 164 ML/MIN (>89)
[2016-12-06 06:26] LABS: TOTAL BILIRUBIN ADULT 0.4 MG/DL (0.2-1.0)
[2016-12-06 06:28] LABS: ALKALINE PHOSPHATASE 69 U/L (45-117)
[2016-12-06] MEDS: INSULIN ASPART SUPPLEMENTAL SCALE SQ SCH ×4 (06:43→20:06)
[2016-12-06 08:00] VITALS: BP 119/86; PULSE 91; RESP 20; TEMP 97.6; O2SAT 95
[2016-12-06] MEDS: DOCUSATE SODIUM 100 MG CAP PO SCH ×2 (08:51→20:04)
[2016-12-06] MEDS: PANTOPRAZOLE SOD 40 MG DELAYED RELEASE TAB PO SCH (08:51)
[2016-12-06] MEDS: INSULIN DETEMIR 100 UNITS/ML VIAL SQ SCH ×2 (08:51→20:05)
[2016-12-06] MEDS: SENNOSIDES 8.6 MG TAB PO SCH (08:51)
[2016-12-06] MEDS: RIVAROXABAN 15 MG TAB PO SCH ×2 (08:51→20:04)
[2016-12-06] MEDS: THIAMINE HCL 100 MG TAB PO SCH (08:51)
[2016-12-06] MEDS: clonazePAM 0.5 MG TAB PO SCH ×2 (08:51→20:04)
[2016-12-06] MEDS: DILTIAZEM-CD 240 MG CAP ER PO SCH (08:51)
[2016-12-06] MEDS: ASPIRIN 81 MG CHEW TAB CHEW SCH (08:52)
--- NOTE | 2016-12-06 09:30 | HHI.PR ---
Subjective Remarks Patient seen and examined today. Patient denies any new complaints. No change clinical status. nursing staff indicates physical therapy states that patient should be in a sling Objective Vitals Vital Signs Date Time Temp Pulse Resp B/P Pulse Ox O2 Delivery O2 Flow Rate FiO2 12/05/16 20:00 100.5 104 20 127/85 96 12/05/16 10:15 97.9 116 19 127/75 94 I/O 12/05/16 12/05/16 12/05/16 12/06/16 12/06/16 12/06/16 07:00 15:00 23:00 07:00 15:00 23:00 Intake Total 240 ml 650 ml 240 ml 480 ml 100 ml Output Total 1000 ml 250 ml 400 ml 1200 ml Balance -760 ml 400 ml -160 ml -720 ml 100 ml Intake Oral 240 ml 650 ml 240 ml 480 ml 100 ml Other 0 ml Output Urine Total 1000 ml 250 ml 400 ml 1200 ml # Voids 3 # Bowel Movements 1 Result Diagram: 12/06/16 0540 12/06/16 0540 Objective Remarks GENERAL: This is a well-nourished, well-developed patient, in no apparent distress. GENERAL: Well-developed, well-nourished, in no acute distress. alert and orientated HEENT: Head is normocephalic without any lesions or masses noted. Patient does have left-sided facial droop. Eyes: Extraocular muscles are intact. Conjunctivae were clear. NECK: Supple without any masses. Trachea midline no deviation. No JVD, CARDIAC: Regular rhythm, regular rate. S1/S2 are heard. No murmurs gallops or rubs. LUNGS: Clear to auscultation bilaterally. No wheeze, rhonchi or rales. No use of accessory muscles on inspiration or expiration. ABDOMEN: Soft, nontender. Nondistended. Bowel sounds heard in all 4 quadrants. No organomegaly or masses. Negative rebound, negative guarding EXTREMITIES: No edema, pulses are equal bilaterally. No cyanosis or clubbing NEUROLOGY: Mood and affect appear appropriate. Patient able to flex and extend left ankle. Patient without any strength in the left upper extremity. Right upper and lower extremity with 5/5 strength in 2+ deep tendon reflexes Urinary Catheter: No Vascular Central Line Catheter: No A/P Assessment and Plan Right Subacute basal ganglia infarct, with L hemiplegia Aspirin continued Continue PT/OT/ST evaluations --Xray left shoulder Strep pneumonia meningitis, endocarditis, sepsis: Treated Infectious disease will need to be reconsulted since the patient left the hospital and patient with low-grade fever Completed Penicillin G 24 million units, end date 12/02/16 Blood cultures negative for 5 days, urinalysis clear, Chest x-rays shows mild streaky opacity in the left lung base consistent with scarring DVT of the left lower extremity Patient on Xarelto Hypertension Cardizem 240 mg daily Diabetes mellitus 2, uncontrolled, Recent A1c 7.1 Accu-Cheks with sliding scale insulin Levemir 5 units every 12 hours Adjustment disorder with depressed mood Psychiatry has evaluated the patient and recommended medication changes. Trazodone 50 mg at bedtime Seroquel 50 mg at bedtime Klonopin 0.5 mg every 12 hours GI Prophylaxis: Protonix. DVT prophylaxis: Xarelto Discharge Planning Case management for discharge planning. Patient has completed antibiotics at this time. Patient still with left hemiplegia. Patient will likely stay in the hospital until able to ambulate home, once PT/OT clears the patient's to discharge home with home health care and home health care can be arranged by [facility] Josh Taylor Dec 06, 2016 09:30
--- NOTE | 2016-12-06 12:56 | RADHPO ---
EXAM DATE/TIME: 12/06/2016 12:13 [place] COMPARISON: No previous studies available for comparison. INDICATIONS : Unable to move left shoulder,arm MEDICAL HISTORY : Stroke. Sepsis. SURGICAL HISTORY : None. ENCOUNTER: Subsequent ACUITY: 2 months PAIN SCORE: 0/10 LOCATION: Left shoulder TECH NOTE: Best images able to get. patient unable to move or hold position for FINDINGS: Multiple view examination of the left shoulder demonstrates no evidence of fracture or dislocation. The glenohumeral and acromioclavicular joints are maintained. There is normal range of motion betwee n internal and external rotation. Bony mineralization is normal. CONCLUSION: Negative for fracture or dislocation. Follow up in 7-10 days is suggested if symptoms persist. Maximiliano Nielsen MD FACR on December 06, 2016 at 12:53 Board Certified Radiologist. This report was verified electronically.
[2016-12-06] MEDS: ACETAMINOPHEN 325 MG TAB PO PRN (16:37)
[2016-12-06 20:00] VITALS: BP 117/86; PULSE 91; RESP 20; TEMP 97.2; O2SAT 96
[2016-12-06] MEDS: QUEtiapine FUMARATE 25 MG TAB PO SCH (20:03)
[2016-12-06] MEDS: traZODone HCL 50 MG TAB PO SCH (20:04)
[2016-12-07] MEDS: INSULIN ASPART SUPPLEMENTAL SCALE SQ SCH ×4 (06:29→21:00)
[2016-12-07 08:00] VITALS: BP 110/64; PULSE 103; RESP 19; TEMP 98.6; O2SAT 96
[2016-12-07] MEDS: INSULIN DETEMIR 100 UNITS/ML VIAL SQ SCH ×2 (08:07→21:10)
[2016-12-07] MEDS: DOCUSATE SODIUM 100 MG CAP PO SCH ×2 (08:07→21:09)
[2016-12-07] MEDS: SENNOSIDES 8.6 MG TAB PO SCH (08:07)
[2016-12-07] MEDS: PANTOPRAZOLE SOD 40 MG DELAYED RELEASE TAB PO SCH (08:08)
[2016-12-07] MEDS: ASPIRIN 81 MG CHEW TAB CHEW SCH (08:08)
[2016-12-07] MEDS: THIAMINE HCL 100 MG TAB PO SCH (08:08)
[2016-12-07] MEDS: clonazePAM 0.5 MG TAB PO SCH ×2 (08:08→21:09)
[2016-12-07] MEDS: RIVAROXABAN 15 MG TAB PO SCH ×2 (08:08→21:10)
[2016-12-07] MEDS: DILTIAZEM-CD 240 MG CAP ER PO SCH (08:08)
--- NOTE | 2016-12-07 10:34 | HHI.PR ---
Subjective Remarks Patient seen and examined today. 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 They will let him drink any fluids because he has missed a urinal couple times. Patient is very eager to go home Objective Vitals Vital Signs Date Time Temp Pulse Resp B/P Pulse Ox O2 Delivery O2 Flow Rate FiO2 12/07/16 08:00 98.6 103 19 110/64 96 12/06/16 20:00 97.2 91 20 117/86 96 I/O 12/06/16 12/06/16 12/06/16 12/07/16 12/07/16 12/07/16 07:00 15:00 23:00 07:00 15:00 23:00 Intake Total 480 ml 460 ml 480 ml 480 ml Output Total 1200 ml 450 ml 700 ml 1200 ml Balance -720 ml 10 ml -220 ml -720 ml Intake Oral 480 ml 460 ml 480 ml 480 ml Output Urine Total 1200 ml 450 ml 700 ml 1200 ml # Bowel Movements 0 0 0 Result Diagram: 12/06/16 0540 12/06/16 0540 Objective Remarks GENERAL: This is a well-nourished, well-developed patient, in no apparent distress. GENERAL: Well-developed, well-nourished, in no acute distress. alert and orientated HEENT: Head is normocephalic without any lesions or masses noted. Patient does have left-sided facial droop. Eyes: Extraocular muscles are intact. Conjunctivae were clear. NECK: Supple without any masses. Trachea midline no deviation. No JVD, CARDIAC: Regular rhythm, regular rate. S1/S2 are heard. No murmurs gallops or rubs. LUNGS: Clear to auscultation bilaterally. No wheeze, rhonchi or rales. No use of accessory muscles on inspiration or expiration. ABDOMEN: Soft, nontender. Nondistended. Bowel sounds heard in all 4 quadrants. No organomegaly or masses. Negative rebound, negative guarding EXTREMITIES: No edema, pulses are equal bilaterally. No cyanosis or clubbing NEUROLOGY: Mood and affect appear appropriate. Patient able to flex and extend left ankle. Patient without any strength in the left upper extremity. Right upper and lower extremity with 5/5 strength in 2+ deep tendon reflexes Urinary Catheter: No Vascular Central Line Catheter: No A/P Assessment and Plan Right Subacute basal ganglia infarct, with L hemiplegia Aspirin continued Continue PT/OT/ST evaluations --Xray left shoulder which did not indicate any acute abnormality or any separations Strep pneumonia meningitis, endocarditis, sepsis: Treated Infectious disease will need to be reconsulted since the patient left the hospital and patient with low-grade fever Completed Penicillin G 24 million units, end date 12/02/16 Blood cultures negative for 5 days, urinalysis clear, Chest x-rays shows mild streaky opacity in the left lung base consistent with scarring DVT of the left lower extremity Patient on Xarelto Hypertension Cardizem 240 mg daily Diabetes mellitus 2, uncontrolled, Recent A1c 7.1 Accu-Cheks with sliding scale insulin Levemir 5 units every 12 hours Adjustment disorder with depressed mood Psychiatry has evaluated the patient and recommended medication changes. Trazodone 50 mg at bedtime Seroquel 50 mg at bedtime Klonopin 0.5 mg every 12 hours GI Prophylaxis: Protonix. DVT prophylaxis: Xarelto Discharge Planning Case management for discharge planning. Patient has completed antibiotics at this time. Patient still with left hemiplegia. Patient will likely stay in the hospital until able to ambulate home, once PT/OT clears the patient's to discharge home with home health care and home health care can be arranged by [facility] Josh Taylor Dec 07, 2016 10:33
[2016-12-07 20:00] VITALS: BP 124/85; PULSE 98; RESP 20; TEMP 99.7; O2SAT 95
[2016-12-07] MEDS: traZODone HCL 50 MG TAB PO SCH (21:09)
[2016-12-07] MEDS: QUEtiapine FUMARATE 25 MG TAB PO SCH (21:09)
[2016-12-08] MEDS: INSULIN ASPART SUPPLEMENTAL SCALE SQ SCH ×4 (06:08→20:29)
[2016-12-08 08:00] VITALS: BP 125/78; PULSE 100; RESP 20; TEMP 98.7; O2SAT 94
[2016-12-08] MEDS: DOCUSATE SODIUM 100 MG CAP PO SCH ×2 (08:49→20:25)
[2016-12-08] MEDS: ASPIRIN 81 MG CHEW TAB CHEW SCH (08:49)
[2016-12-08] MEDS: PANTOPRAZOLE SOD 40 MG DELAYED RELEASE TAB PO SCH (08:50)
[2016-12-08] MEDS: RIVAROXABAN 15 MG TAB PO SCH ×2 (08:50→20:25)
[2016-12-08] MEDS: clonazePAM 0.5 MG TAB PO SCH ×2 (08:50→20:25)
[2016-12-08] MEDS: THIAMINE HCL 100 MG TAB PO SCH (08:50)
[2016-12-08] MEDS: SENNOSIDES 8.6 MG TAB PO SCH (08:50)
[2016-12-08] MEDS: INSULIN DETEMIR 100 UNITS/ML VIAL SQ SCH ×2 (08:50→20:29)
[2016-12-08] MEDS: DILTIAZEM-CD 240 MG CAP ER PO SCH (08:50)
--- NOTE | 2016-12-08 09:37 | HHI.PR ---
Subjective Remarks Patient seen and examined today. He is resting comfortably in bed, no new complaints, just says he is very tired. Does have hopes in going home soon. Objective Vitals Vital Signs Date Time Temp Pulse Resp B/P Pulse Ox O2 Delivery O2 Flow Rate FiO2 12/07/16 20:00 99.7 98 20 124/85 95 I/O 12/07/16 12/07/16 12/07/16 12/08/16 12/08/16 12/08/16 07:00 15:00 23:00 07:00 15:00 23:00 Intake Total 480 ml 360 ml 680 ml Output Total 1200 ml 300 ml 625 ml 1050 ml Balance -720 ml 60 ml 55 ml -1050 ml Intake Oral 480 ml 360 ml 680 ml Output Urine Total 1200 ml 300 ml 625 ml 1050 ml # Bowel Movements 0 0 0 0 Result Diagram: 12/06/16 0540 12/06/16 0540 Objective Remarks GENERAL: This is a well-nourished, well-developed patient, in no apparent distress. GENERAL: Well-developed, well-nourished, in no acute distress. alert and orientated HEENT: Head is normocephalic without any lesions or masses noted. Patient does have left-sided facial droop. Eyes: Extraocular muscles are intact. Conjunctivae were clear. NECK: Supple without any masses. Trachea midline no deviation. No JVD, CARDIAC: Regular rhythm, regular rate. S1/S2 are heard. No murmurs gallops or rubs. LUNGS: Clear to auscultation bilaterally. No wheeze, rhonchi or rales. No use of accessory muscles on inspiration or expiration. ABDOMEN: Soft, nontender. Nondistended. Bowel sounds heard in all 4 quadrants. No organomegaly or masses. Negative rebound, negative guarding EXTREMITIES: No edema, pulses are equal bilaterally. No cyanosis or clubbing NEUROLOGY: Mood and affect appear appropriate. Patient able to flex and extend left ankle. Patient without any strength in the left upper extremity. Right upper and lower extremity with 5/5 strength in 2+ deep tendon reflexes Urinary Catheter: No Vascular Central Line Catheter: No A/P Assessment and Plan Right Subacute basal ganglia infarct, with L hemiplegia Aspirin continued Continue PT/OT/ST evaluations --Xray left shoulder which did not indicate any acute abnormality or any separations Strep pneumonia meningitis, endocarditis, sepsis: Treated Infectious disease will need to be reconsulted since the patient left the hospital and patient with low-grade fever Completed Penicillin G 24 million units, end date 12/02/16 Blood cultures negative for 5 days, urinalysis clear, Chest x-rays shows mild streaky opacity in the left lung base consistent with scarring DVT of the left lower extremity Patient on Xarelto Hypertension Cardizem 240 mg daily Diabetes mellitus 2, uncontrolled, Recent A1c 7.1 Accu-Cheks with sliding scale insulin Levemir 5 units every 12 hours Adjustment disorder with depressed mood Psychiatry has evaluated the patient and recommended medication changes. Trazodone 50 mg at bedtime Seroquel 50 mg at bedtime Klonopin 0.5 mg every 12 hours GI Prophylaxis: Protonix. DVT prophylaxis: Xarelto Discharge Planning Case management for discharge planning. Patient has completed antibiotics at this time. Patient still with left hemiplegia. Patient will likely stay in the hospital until able to ambulate home, once PT/OT clears the patient's to discharge home with home health care and home health care can be arranged by [facility] Josh Taylor Dec 08, 2016 09:37
[2016-12-08 20:00] VITALS: BP 133/79; PULSE 98; RESP 20; TEMP 99.8; O2SAT 98
[2016-12-08] MEDS: traZODone HCL 50 MG TAB PO SCH (20:25)
[2016-12-08] MEDS: QUEtiapine FUMARATE 25 MG TAB PO SCH (20:25)
[2016-12-09] MEDS: ACETAMINOPHEN 325 MG TAB PO PRN ×2 (04:22→18:51)
[2016-12-09] MEDS: INSULIN ASPART SUPPLEMENTAL SCALE SQ SCH ×4 (06:13→20:10)
[2016-12-09] MEDS: PANTOPRAZOLE SOD 40 MG DELAYED RELEASE TAB PO SCH (07:20)
[2016-12-09] MEDS: clonazePAM 0.5 MG TAB PO SCH ×2 (07:20→20:18)
[2016-12-09] MEDS: ASPIRIN 81 MG CHEW TAB CHEW SCH (07:21)
[2016-12-09] MEDS: SENNOSIDES 8.6 MG TAB PO SCH (07:21)
[2016-12-09] MEDS: RIVAROXABAN 15 MG TAB PO SCH ×2 (07:21→20:17)
[2016-12-09] MEDS: DILTIAZEM-CD 240 MG CAP ER PO SCH (07:21)
[2016-12-09] MEDS: DOCUSATE SODIUM 100 MG CAP PO SCH ×2 (07:21→20:17)
[2016-12-09] MEDS: THIAMINE HCL 100 MG TAB PO SCH (07:25)
[2016-12-09] MEDS: INSULIN DETEMIR 100 UNITS/ML VIAL SQ SCH ×2 (07:26→20:18)
[2016-12-09 08:00] VITALS: BP 111/71; PULSE 78; RESP 20; TEMP 97.9; O2SAT 93
--- NOTE | 2016-12-09 12:43 | HHI.PR ---
Subjective Remarks Follow-up for sepsis, endocarditis, pneumonia, meningitis with extensive LLE DVT on Xarelto. Patient is doing well on his psychiatric medications. They had been decreased approximately 1 week ago due to making the patient overly tired. He now states he may need a slight increase in them, but symptoms are controlled. Objective Vitals Vital Signs Date Time Temp Pulse Resp B/P Pulse Ox O2 Delivery O2 Flow Rate FiO2 12/09/16 08:00 97.9 78 20 111/71 93 12/08/16 20:00 99.8 98 20 133/79 98 I/O 12/08/16 12/08/16 12/08/16 12/09/16 12/09/16 12/09/16 07:00 15:00 23:00 07:00 15:00 23:00 Intake Total 1380 ml 840 ml 60 ml Output Total 1050 ml 550 ml 825 ml 600 ml Balance -1050 ml 830 ml 15 ml -540 ml Intake Oral 1380 ml 840 ml 60 ml Output Urine Total 1050 ml 550 ml 825 ml 600 ml # Voids 2 2 # Bowel Movements 0 1 0 Result Diagram: 12/06/16 0540 12/06/16 0540 Objective Remarks GENERAL: Well-nourished, well developed patient no apparent distress. SKIN: Warm and dry. CARDIOVASCULAR: Regular rate and rhythm. RESPIRATORY: No accessory muscle use. Wheezing bilaterally. GASTROINTESTINAL: Normoactive bowel sounds. Abdomen soft, non-tender, nondistended. MUSCULOSKELETAL: No pitting edema of B/L lower extremities. NEUROLOGICAL: Awake and alert. Normal speech. PSYCHIATRIC: Insight and judgment normal. 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 Penicillin G completed 12/02/16. Blood cultures 11/23 NGTD. Chest x-ray 11/23: lungs symmetrically aerated without evidence of mass, confluent infiltrate or effusion. Mild streaky opacity remains at the left lung base most consistent with scarring. No e/o PNA. UA 11/23 negative WBC improved. CRP stable. Extensive DVT LLE -Continue Xarelto -Had fevers due to DVT but afebrile since 12/05 Right Subacute basal ganglia infarct, with L hemiplegia Aspirin continued Continue PT/OT/ST evaluations. PT indicates need for wheelchair and left ankle and foot orthosis as well as PT at rehabilitation. Trapeze ordered, still awaiting this. Unspecified personality disorder/Adjustment disorder with depressed mood/ Polysubstance dependence: -Psychiatry consultation appreciated. Continue clonazepam, Seroquel, and Trazodone. Back pain MRI thoracic and lumbar spine 11/24 with disc protrusions but no evidence of infection. Continue with Tylenol prn Scheduled narcotics will not be ordered. Hypertension -Cardizem 240 mg daily -Monitor and adjust medication as needed Tachycardia Monitor Anemia Mild Hemoglobin stable Diabetes mellitus 2, uncontrolled, with A1c 7.1 Continue with Accu-Cheks with sliding scale insulin Continue Levemir 5 units every 12 hours. Adjust as needed. Diabetic diet GI Prophylaxis: Protonix DVT prophylaxis: Renyarelto Discharge Planning CM continuing to follow for SSI approval and acceptance. OT and PT recommending rehab. Kirsten Fournier Dec 09, 2016 12:42 DVT prophylaxis: Kirsten Benavides Dec 09, 2016 12:42
[2016-12-09 20:00] VITALS: BP 102/72; PULSE 96; RESP 20; TEMP 98.6; O2SAT 96
[2016-12-09] MEDS: QUEtiapine FUMARATE 25 MG TAB PO SCH (20:18)
[2016-12-09] MEDS: traZODone HCL 50 MG TAB PO SCH (20:18)
[2016-12-10] MEDS: ACETAMINOPHEN 325 MG TAB PO PRN (06:09)
[2016-12-10] MEDS: INSULIN ASPART SUPPLEMENTAL SCALE SQ SCH ×4 (06:13→20:23)
[2016-12-10 07:15] VITALS: BP 102/73; PULSE 95; RESP 20; TEMP 96.1; O2SAT 93
[2016-12-10] MEDS: DILTIAZEM-CD 240 MG CAP ER PO SCH (09:31)
[2016-12-10] MEDS: RIVAROXABAN 15 MG TAB PO SCH ×2 (09:31→20:22)
[2016-12-10] MEDS: THIAMINE HCL 100 MG TAB PO SCH (09:31)
[2016-12-10] MEDS: SENNOSIDES 8.6 MG TAB PO SCH (09:31)
[2016-12-10] MEDS: clonazePAM 0.5 MG TAB PO SCH ×2 (09:31→20:21)
[2016-12-10] MEDS: PANTOPRAZOLE SOD 40 MG DELAYED RELEASE TAB PO SCH (09:31)
[2016-12-10] MEDS: ASPIRIN 81 MG CHEW TAB CHEW SCH (09:31)
[2016-12-10] MEDS: INSULIN DETEMIR 100 UNITS/ML VIAL SQ SCH ×2 (09:31→20:22)
[2016-12-10] MEDS: DOCUSATE SODIUM 100 MG CAP PO SCH ×2 (09:31→20:21)
--- NOTE | 2016-12-10 11:38 | HHI.PR ---
Subjective Remarks Follow-up for sepsis, endocarditis, pneumonia, meningitis with extensive LLE DVT on Xarelto. No acute complaints. Objective Vitals Vital Signs Date Time Temp Pulse Resp B/P Pulse Ox O2 Delivery O2 Flow Rate FiO2 12/09/16 20:00 98.6 96 20 102/72 96 12/09/16 19:51 16 I/O 12/09/16 12/09/16 12/09/16 12/10/16 12/10/16 12/10/16 07:00 15:00 23:00 07:00 15:00 23:00 Intake Total 60 ml 1650 ml 720 ml 240 ml Output Total 600 ml 800 ml 400 ml 1000 ml Balance -540 ml 850 ml 320 ml -760 ml Intake Oral 60 ml 1650 ml 720 ml 240 ml Output Urine Total 600 ml 800 ml 400 ml 1000 ml # Voids 2 # Bowel Movements 0 Result Diagram: 12/06/16 0540 12/06/16 0540 Objective Remarks GENERAL: Well-nourished, well developed patient no apparent distress. SKIN: Warm and dry. CARDIOVASCULAR: Regular rate and rhythm. RESPIRATORY: No accessory muscle use. CTAB. GASTROINTESTINAL: Abdomen soft, non-tender, nondistended. NEUROLOGICAL: Awake and alert. Normal speech. PSYCHIATRIC: Insight and judgment normal. 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 Penicillin G completed 12/02/16. Blood cultures 11/23 NGTD. Chest x-ray 11/23: lungs symmetrically aerated without evidence of mass, confluent infiltrate or effusion. Mild streaky opacity remains at the left lung base most consistent with scarring. No e/o PNA. UA 11/23 negative WBC improved. CRP stable. Extensive DVT LLE -Continue Xarelto -Had fevers due to DVT but afebrile since 12/05 Right Subacute basal ganglia infarct, with L hemiplegia Aspirin continued Continue PT/OT/ST evaluations. PT indicates need for wheelchair and left ankle and foot orthosis as well as PT at rehabilitation. Trapeze ordered Unspecified personality disorder/Adjustment disorder with depressed mood/ Polysubstance dependence: -Psychiatry consultation appreciated. Continue clonazepam, Seroquel, and Trazodone. Back pain MRI thoracic and lumbar spine 11/24 with disc protrusions but no evidence of infection. Continue with Tylenol prn Scheduled narcotics will not be ordered. Hypertension -Cardizem 240 mg daily -Monitor and adjust medication as needed Tachycardia Monitor Anemia Mild Hemoglobin stable Diabetes mellitus 2, uncontrolled, with A1c 7.1 Continue with Accu-Cheks with sliding scale insulin Continue Levemir 5 units every 12 hours. Adjust as needed. BGLs 132-149 yesterday. Diabetic diet GI Prophylaxis: Protonix DVT prophylaxis: Xarelto Discharge Planning CM continuing to follow for SSI approval and acceptance. OT and PT recommending rehab. Kirsten Fournier Dec 10, 2016 11:38
[2016-12-10 20:00] VITALS: BP 118/79; PULSE 94; RESP 19; TEMP 99; O2SAT 95
[2016-12-10] MEDS: traZODone HCL 50 MG TAB PO SCH (20:21)
[2016-12-10] MEDS: QUEtiapine FUMARATE 25 MG TAB PO SCH (20:21)
[2016-12-11] MEDS: INSULIN ASPART SUPPLEMENTAL SCALE SQ SCH ×4 (06:10→20:47)
[2016-12-11 08:00] VITALS: BP 114/90; PULSE 90; RESP 20; TEMP 98.8; O2SAT 95
[2016-12-11] MEDS: INSULIN DETEMIR 100 UNITS/ML VIAL SQ SCH ×2 (09:02→20:40)
[2016-12-11] MEDS: SENNOSIDES 8.6 MG TAB PO SCH (09:04)
[2016-12-11] MEDS: DILTIAZEM-CD 240 MG CAP ER PO SCH (09:04)
[2016-12-11] MEDS: PANTOPRAZOLE SOD 40 MG DELAYED RELEASE TAB PO SCH (09:04)
[2016-12-11] MEDS: RIVAROXABAN 15 MG TAB PO SCH ×2 (09:04→20:41)
[2016-12-11] MEDS: THIAMINE HCL 100 MG TAB PO SCH (09:04)
[2016-12-11] MEDS: ASPIRIN 81 MG CHEW TAB CHEW SCH (09:04)
[2016-12-11] MEDS: clonazePAM 0.5 MG TAB PO SCH ×2 (09:05→20:41)
[2016-12-11] MEDS: DOCUSATE SODIUM 100 MG CAP PO SCH ×2 (09:05→20:41)
--- NOTE | 2016-12-11 09:38 | HHI.PR ---
Subjective Remarks Follow-up for sepsis, endocarditis, pneumonia, meningitis with extensive LLE DVT on Xarelto. No acute complaints. Objective Vitals Vital Signs Date Time Temp Pulse Resp B/P Pulse Ox O2 Delivery O2 Flow Rate FiO2 12/11/16 08:00 98.8 90 20 114/90 95 12/10/16 20:00 99.0 94 19 118/79 95 I/O 12/10/16 12/10/16 12/10/16 12/11/16 12/11/16 12/11/16 07:00 15:00 23:00 07:00 15:00 23:00 Intake Total 240 ml 900 ml 240 ml 240 ml Output Total 1000 ml 800 ml 600 ml 700 ml 600 ml Balance -760 ml 100 ml -360 ml -460 ml -600 ml Intake Oral 240 ml 900 ml 240 ml 240 ml Output Urine Total 1000 ml 800 ml 600 ml 700 ml 600 ml # Bowel Movements 0 1 Objective Remarks GENERAL: Well-nourished, well developed patient no apparent distress. SKIN: Warm and dry. CARDIOVASCULAR: Regular rate and rhythm. RESPIRATORY: No accessory muscle use. CTAB. GASTROINTESTINAL: Abdomen soft, non-tender, nondistended. MUSCULOSKELETAL: No notable edema of bilateral lower extremities. NEUROLOGICAL: Awake and alert. Normal speech. PSYCHIATRIC: Insight and judgment normal. 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 Penicillin G completed 12/02/16. Blood cultures 11/23 NGTD. Chest x-ray 11/23: lungs symmetrically aerated without evidence of mass, confluent infiltrate or effusion. Mild streaky opacity remains at the left lung base most consistent with scarring. No e/o PNA. UA 11/23 negative WBC improved. CRP stable. Extensive DVT LLE -Continue Xarelto -Had fevers due to DVT but afebrile since 12/05 Right Subacute basal ganglia infarct, with L hemiplegia Aspirin continued Continue PT/OT/ST evaluations. PT indicates need for wheelchair and left ankle and foot orthosis as well as PT at rehabilitation. Trapeze ordered Unspecified personality disorder/Adjustment disorder with depressed mood/ Polysubstance dependence: -Psychiatry consultation appreciated. Continue Clonazepam, Seroquel, and Trazodone. Back pain MRI thoracic and lumbar spine 11/24 with disc protrusions but no evidence of infection. Continue with Tylenol prn Scheduled narcotics will not be ordered. Hypertension -Cardizem 240 mg daily -Monitor and adjust medication as needed Tachycardia Monitor Anemia Mild Hemoglobin stable Diabetes mellitus 2, uncontrolled, with A1c 7.1 Continue with Accu-Cheks with sliding scale insulin Continue Levemir 5 units every 12 hours. Adjust as needed. BGL 136 this morning. Diabetic diet GI Prophylaxis: Protonix DVT prophylaxis: Xarelto Discharge Planning CM continuing to follow for SSI approval and acceptance. OT and PT recommending rehab. Kirsten Fournier Dec 11, 2016 09:38
[2016-12-11 20:00] VITALS: BP 113/77; PULSE 101; RESP 20; TEMP 99.6; O2SAT 96
[2016-12-11] MEDS: QUEtiapine FUMARATE 25 MG TAB PO SCH (20:41)
[2016-12-11] MEDS: traZODone HCL 50 MG TAB PO SCH (20:41)
[2016-12-12] MEDS: INSULIN ASPART SUPPLEMENTAL SCALE SQ SCH ×4 (06:31→20:02)
[2016-12-12] MEDS: clonazePAM 0.5 MG TAB PO SCH ×2 (07:47→20:01)
[2016-12-12] MEDS: SENNOSIDES 8.6 MG TAB PO SCH (07:47)
[2016-12-12] MEDS: RIVAROXABAN 15 MG TAB PO SCH ×2 (07:48→20:02)
[2016-12-12] MEDS: DILTIAZEM-CD 240 MG CAP ER PO SCH (07:50)
[2016-12-12] MEDS: PANTOPRAZOLE SOD 40 MG DELAYED RELEASE TAB PO SCH (07:50)
[2016-12-12] MEDS: ASPIRIN 81 MG CHEW TAB CHEW SCH (07:50)
[2016-12-12] MEDS: THIAMINE HCL 100 MG TAB PO SCH (07:50)
[2016-12-12] MEDS: DOCUSATE SODIUM 100 MG CAP PO SCH ×2 (07:50→20:02)
[2016-12-12] MEDS: INSULIN DETEMIR 100 UNITS/ML VIAL SQ SCH ×2 (07:50→20:03)
[2016-12-12] MEDS: ACETAMINOPHEN 325 MG TAB PO PRN (07:51)
[2016-12-12 08:00] VITALS: BP 120/78; PULSE 94; RESP 18; TEMP 97.4; O2SAT 95
--- NOTE | 2016-12-12 10:45 | HHI.PR ---
Subjective Remarks Follow-up for sepsis, endocarditis, pneumonia, meningitis with extensive LLE DVT on Xarelto. No acute complaints. Objective Vitals Vital Signs Date Time Temp Pulse Resp B/P Pulse Ox O2 Delivery O2 Flow Rate FiO2 12/12/16 08:00 97.4 94 18 120/78 95 12/11/16 20:00 99.6 101 20 113/77 96 I/O 12/11/16 12/11/16 12/11/16 12/12/16 12/12/16 12/12/16 07:00 15:00 23:00 07:00 15:00 23:00 Intake Total 240 ml 240 ml 720 ml 480 ml Output Total 700 ml 800 ml 1450 ml 625 ml Balance -460 ml -560 ml -730 ml -145 ml Intake Oral 240 ml 240 ml 720 ml 480 ml IV Total 0 ml Output Urine Total 700 ml 800 ml 1450 ml 625 ml # Bowel Movements 0 0 Objective Remarks GENERAL: Well-nourished, well developed patient no apparent distress. SKIN: Warm and dry. CARDIOVASCULAR: Regular rate and rhythm. RESPIRATORY: No accessory muscle use. CTAB. GASTROINTESTINAL: Abdomen soft, non-tender, nondistended. MUSCULOSKELETAL: Non-pitting edema L leg. NEUROLOGICAL: Awake and alert. Normal speech. PSYCHIATRIC: Insight and judgment normal. 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 Penicillin G completed 12/02/16. Blood cultures 11/23 NGTD. Chest x-ray 11/23: lungs symmetrically aerated without evidence of mass, confluent infiltrate or effusion. Mild streaky opacity remains at the left lung base most consistent with scarring. No e/o PNA. UA 11/23 negative WBC improved. CRP stable. Extensive DVT LLE -Continue Xarelto -Had fevers due to DVT but afebrile since 12/05 Right Subacute basal ganglia infarct, with L hemiplegia Aspirin continued Continue PT/OT/ST evaluations. PT indicates need for wheelchair and left ankle and foot orthosis as well as PT at rehabilitation. Trapeze ordered Unspecified personality disorder/Adjustment disorder with depressed mood/ Polysubstance dependence: -Psychiatry consultation appreciated. Continue Clonazepam, Seroquel, and Trazodone. Back pain MRI thoracic and lumbar spine 11/24 with disc protrusions but no evidence of infection. Continue with Tylenol prn Scheduled narcotics will not be ordered. Hypertension -Cardizem 240 mg daily -Monitor and adjust medication as needed Tachycardia Monitor Anemia Mild Hemoglobin stable Diabetes mellitus 2, uncontrolled, with A1c 7.1 Continue with Accu-Cheks with sliding scale insulin Continue Levemir 5 units every 12 hours. Adjust as needed. BGLs fairly well controlled. Diabetic diet GI Prophylaxis: Protonix DVT prophylaxis: Xarelto Discharge Planning CM continuing to follow for SSI approval and acceptance. OT and PT recommending rehab. Kirsten Fournier Dec 12, 2016 10:45
[2016-12-12 20:00] VITALS: BP 115/75; PULSE 101; RESP 20; TEMP 96.9; O2SAT 96
[2016-12-12] MEDS: QUEtiapine FUMARATE 25 MG TAB PO SCH (20:01)
[2016-12-12] MEDS: traZODone HCL 50 MG TAB PO SCH (20:02)
[2016-12-13] MEDS: INSULIN ASPART SUPPLEMENTAL SCALE SQ SCH ×4 (05:49→21:00)
[2016-12-13 08:00] VITALS: BP 122/82; PULSE 91; RESP 19; TEMP 97.9; O2SAT 94
[2016-12-13] MEDS: THIAMINE HCL 100 MG TAB PO SCH (08:26)
[2016-12-13] MEDS: DILTIAZEM-CD 240 MG CAP ER PO SCH (08:26)
[2016-12-13] MEDS: RIVAROXABAN 15 MG TAB PO SCH ×2 (08:26→21:19)
[2016-12-13] MEDS: PANTOPRAZOLE SOD 40 MG DELAYED RELEASE TAB PO SCH (08:26)
[2016-12-13] MEDS: DOCUSATE SODIUM 100 MG CAP PO SCH ×2 (08:26→21:18)
[2016-12-13] MEDS: clonazePAM 0.5 MG TAB PO SCH ×2 (08:26→21:19)
[2016-12-13] MEDS: ASPIRIN 81 MG CHEW TAB CHEW SCH (08:26)
[2016-12-13] MEDS: SENNOSIDES 8.6 MG TAB PO SCH (08:26)
[2016-12-13] MEDS: INSULIN DETEMIR 100 UNITS/ML VIAL SQ SCH ×2 (08:29→21:21)
--- NOTE | 2016-12-13 12:21 | HHI.PR ---
Subjective Remarks Follow-up for sepsis, endocarditis, pneumonia, meningitis with extensive LLE DVT on Xarelto. No acute complaints. Objective Vitals Vital Signs Date Time Temp Pulse Resp B/P Pulse Ox O2 Delivery O2 Flow Rate FiO2 12/13/16 08:00 97.9 91 19 122/82 94 12/12/16 20:00 96.9 101 20 115/75 96 I/O 12/12/16 12/12/16 12/12/16 12/13/16 12/13/16 12/13/16 07:00 15:00 23:00 07:00 15:00 23:00 Intake Total 480 ml 360 ml 240 ml 480 ml 100 ml Output Total 625 ml 450 ml 1200 ml 850 ml Balance -145 ml -90 ml -960 ml -370 ml 100 ml Intake Oral 480 ml 360 ml 240 ml 480 ml 100 ml Output Urine Total 625 ml 450 ml 1200 ml 850 ml # Bowel Movements 0 0 0 Objective Remarks GENERAL: Well-nourished, well developed patient no apparent distress. SKIN: Warm and dry. CARDIOVASCULAR: Regular rate and rhythm. RESPIRATORY: No accessory muscle use. CTAB. GASTROINTESTINAL: Abdomen soft, non-tender, nondistended. MUSCULOSKELETAL: L leg larger than R, no pitting edema. NEUROLOGICAL: Awake and alert. Normal speech. PSYCHIATRIC: Insight and judgment normal. 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 Penicillin G completed 12/02/16. Blood cultures 11/23 NGTD. Chest x-ray 11/23: lungs symmetrically aerated without evidence of mass, confluent infiltrate or effusion. Mild streaky opacity remains at the left lung base most consistent with scarring. No e/o PNA. UA 11/23 negative WBC improved. CRP stable. Extensive DVT LLE -Continue Xarelto -Had fevers due to DVT but afebrile since 12/05 Right Subacute basal ganglia infarct, with L hemiplegia Aspirin continued Continue PT/OT/ST evaluations. PT indicates need for wheelchair and left ankle and foot orthosis as well as PT at rehabilitation. Trapeze ordered Unspecified personality disorder/Adjustment disorder with depressed mood/ Polysubstance dependence: -Psychiatry consultation appreciated. Continue Clonazepam, Seroquel, and Trazodone. Back pain MRI thoracic and lumbar spine 11/24 with disc protrusions but no evidence of infection. Continue with Tylenol prn Scheduled narcotics will not be ordered. Hypertension -Cardizem 240 mg daily -Monitor and adjust medication as needed Tachycardia Monitor Anemia Mild Hemoglobin stable Diabetes mellitus 2, uncontrolled, with A1c 7.1 Continue with Accu-Cheks with sliding scale insulin Continue Levemir 5 units every 12 hours. Adjust as needed. BGLs fairly well controlled. Diabetic diet GI Prophylaxis: Protonix DVT prophylaxis: Xarelto Discharge Planning CM continuing to follow for SSI approval and acceptance. OT and PT recommending rehab. Kirsten Fournier Dec 13, 2016 12:21
[2016-12-13 20:00] VITALS: BP 119/88; PULSE 94; RESP 21; TEMP 99.2; O2SAT 97
[2016-12-13] MEDS: traZODone HCL 50 MG TAB PO SCH (21:18)
[2016-12-13] MEDS: QUEtiapine FUMARATE 25 MG TAB PO SCH (21:20)
[2016-12-14] MEDS: INSULIN ASPART SUPPLEMENTAL SCALE SQ SCH ×4 (06:17→21:00)
[2016-12-14 08:00] VITALS: BP 110/81; PULSE 85; RESP 19; TEMP 97.1; O2SAT 95
[2016-12-14] MEDS: THIAMINE HCL 100 MG TAB PO SCH (08:38)
[2016-12-14] MEDS: DILTIAZEM-CD 240 MG CAP ER PO SCH (08:38)
[2016-12-14] MEDS: RIVAROXABAN 15 MG TAB PO SCH ×2 (08:38→21:22)
[2016-12-14] MEDS: INSULIN DETEMIR 100 UNITS/ML VIAL SQ SCH ×2 (08:38→21:22)
[2016-12-14] MEDS: ASPIRIN 81 MG CHEW TAB CHEW SCH (08:38)
[2016-12-14] MEDS: PANTOPRAZOLE SOD 40 MG DELAYED RELEASE TAB PO SCH (08:38)
[2016-12-14] MEDS: SENNOSIDES 8.6 MG TAB PO SCH (08:38)
[2016-12-14] MEDS: DOCUSATE SODIUM 100 MG CAP PO SCH ×2 (08:38→21:22)
[2016-12-14] MEDS: clonazePAM 0.5 MG TAB PO SCH ×2 (08:38→21:22)
--- NOTE | 2016-12-14 10:03 | HHI.PR ---
Subjective Remarks Follow-up for sepsis, endocarditis, pneumonia, meningitis with extensive LLE DVT on Xarelto. No acute complaints. Later yesterday nurse informed me of a rash to the patient's face. Objective Vitals Vital Signs Date Time Temp Pulse Resp B/P Pulse Ox O2 Delivery O2 Flow Rate FiO2 12/14/16 08:00 97.1 85 19 110/81 95 12/13/16 20:00 99.2 94 21 119/88 97 I/O 12/13/16 12/13/16 12/13/16 12/14/16 12/14/16 12/14/16 07:00 15:00 23:00 07:00 15:00 23:00 Intake Total 480 ml 1060 ml 360 ml 240 ml Output Total 850 ml 700 ml 1725 ml 1000 ml Balance -370 ml 360 ml -1365 ml -760 ml Intake Oral 480 ml 1060 ml 360 ml 240 ml Output Urine Total 850 ml 700 ml 1725 ml 1000 ml # Bowel Movements 0 1 0 Objective Remarks GENERAL: Well-nourished, well developed patient no apparent distress. SKIN: Warm and dry. Small blood crusted lesions to the chin and around the left upper lip; no vesicles or yellow crusting. CARDIOVASCULAR: Regular rate and rhythm. RESPIRATORY: No accessory muscle use. CTAB. GASTROINTESTINAL: Abdomen soft, non-tender, nondistended. MUSCULOSKELETAL: No pitting edema LLE. NEUROLOGICAL: Awake and alert. Normal speech. PSYCHIATRIC: Insight and judgment normal. 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 Penicillin G completed 12/02/16. Blood cultures 11/23 NGTD. Chest x-ray 11/23: lungs symmetrically aerated without evidence of mass, confluent infiltrate or effusion. Mild streaky opacity remains at the left lung base most consistent with scarring. No e/o PNA. UA 11/23 negative WBC improved. CRP stable. Extensive DVT LLE -Continue Xarelto -Had fevers due to DVT but afebrile since 12/05 Right Subacute basal ganglia infarct, with L hemiplegia Aspirin continued Continue PT/OT/ST evaluations. PT indicates need for wheelchair and left ankle and foot orthosis as well as PT at rehabilitation. Trapeze ordered Unspecified personality disorder/Adjustment disorder with depressed mood/ Polysubstance dependence: -Psychiatry consultation appreciated. Continue Clonazepam, Seroquel, and Trazodone. Back pain MRI thoracic and lumbar spine 11/24 with disc protrusions but no evidence of infection. Continue with Tylenol prn Scheduled narcotics will not be ordered. Hypertension -Cardizem 240 mg daily -Monitor and adjust medication as needed Tachycardia Monitor Anemia Mild Hemoglobin stable Diabetes mellitus 2, uncontrolled, with A1c 7.1 Continue with Accu-Cheks with sliding scale insulin Continue Levemir 5 units every 12 hours. BGLs well controlled currently. Diabetic diet Face lesions: Possible abrasions as they are crusted with blood overlying chin and patient's face was shaved by nurse yesterday and patient states it was a bit rough. -Will start Bactoban ointment though temporarily to prevent infection and to cover for possibility of impetigo although less likely. GI Prophylaxis: Protonix DVT prophylaxis: Xarelto Discharge Planning CM continuing to follow for SSI approval and acceptance. OT and PT recommending rehab. Kirsten Fournier Dec 14, 2016 10:02
[2016-12-14] MEDS: MUPIROCIN 2% OINT 22 GM TUBE TOPICAL SCH ×2 (16:24→21:27)
[2016-12-14 20:00] VITALS: BP 113/61; PULSE 93; RESP 20; TEMP 98.8; O2SAT 98
[2016-12-14] MEDS: traZODone HCL 50 MG TAB PO SCH (21:22)
[2016-12-14] MEDS: QUEtiapine FUMARATE 25 MG TAB PO SCH (21:22)
[2016-12-15] MEDS: INSULIN ASPART SUPPLEMENTAL SCALE SQ SCH ×4 (06:31→20:51)
[2016-12-15 08:00] VITALS: BP 95/62; PULSE 97; RESP 19; TEMP 98.2; O2SAT 97
[2016-12-15] MEDS: clonazePAM 0.5 MG TAB PO SCH ×2 (08:23→20:34)
[2016-12-15] MEDS: THIAMINE HCL 100 MG TAB PO SCH (08:23)
[2016-12-15] MEDS: DILTIAZEM-CD 240 MG CAP ER PO SCH (08:23)
[2016-12-15] MEDS: PANTOPRAZOLE SOD 40 MG DELAYED RELEASE TAB PO SCH (08:23)
[2016-12-15] MEDS: RIVAROXABAN 20 MG TAB PO SCH (08:23)
[2016-12-15] MEDS: ASPIRIN 81 MG CHEW TAB CHEW SCH (08:23)
[2016-12-15] MEDS: SENNOSIDES 8.6 MG TAB PO SCH (08:23)
[2016-12-15] MEDS: DOCUSATE SODIUM 100 MG CAP PO SCH ×2 (08:23→20:35)
[2016-12-15] MEDS: INSULIN DETEMIR 100 UNITS/ML VIAL SQ SCH ×2 (08:23→20:54)
[2016-12-15] MEDS: MUPIROCIN 2% OINT 22 GM TUBE TOPICAL SCH ×2 (08:26→20:37)
--- NOTE | 2016-12-15 10:58 | HHI.PR ---
Subjective Remarks Patient seen and examined today. Patient denies any new complaints. No change in clinical status. Objective Vitals Vital Signs Date Time Temp Pulse Resp B/P Pulse Ox O2 Delivery O2 Flow Rate FiO2 12/15/16 08:00 98.2 97 19 95/62 97 12/14/16 20:00 98.8 93 20 113/61 98 I/O 12/14/16 12/14/16 12/14/16 12/15/16 12/15/16 12/15/16 07:00 15:00 23:00 07:00 15:00 23:00 Intake Total 240 ml 1440 ml 240 ml Output Total 1000 ml 400 ml 1050 ml 300 ml Balance -760 ml -400 ml 390 ml -60 ml Intake Oral 240 ml 1440 ml 240 ml Output Urine Total 1000 ml 400 ml 1050 ml 300 ml # Bowel Movements 0 Objective Remarks GENERAL: This is a well-nourished, well-developed patient, in no apparent distress. GENERAL: Well-developed, well-nourished, in no acute distress. alert and orientated HEENT: Head is normocephalic without any lesions or masses noted. Patient does have left-sided facial droop. Eyes: Extraocular muscles are intact. Conjunctivae were clear. NECK: Supple without any masses. Trachea midline no deviation. No JVD, CARDIAC: Regular rhythm, regular rate. S1/S2 are heard. No murmurs gallops or rubs. LUNGS: Clear to auscultation bilaterally. No wheeze, rhonchi or rales. No use of accessory muscles on inspiration or expiration. ABDOMEN: Soft, nontender. Nondistended. Bowel sounds heard in all 4 quadrants. No organomegaly or masses. Negative rebound, negative guarding EXTREMITIES: No edema, pulses are equal bilaterally. No cyanosis or clubbing NEUROLOGY: Mood and affect appear appropriate. Patient able to flex and extend left ankle. Patient without any strength in the left upper extremity. Right upper and lower extremity with 5/5 strength in 2+ deep tendon reflexes Urinary Catheter: No Vascular Central Line Catheter: No A/P Assessment and Plan Right Subacute basal ganglia infarct, with L hemiplegia Aspirin continued Continue PT/OT/ST evaluations --Xray left shoulder which did not indicate any acute abnormality or any separations Strep pneumonia meningitis, endocarditis, sepsis: Treated Infectious disease will need to be reconsulted since the patient left the hospital and patient with low-grade fever Completed Penicillin G 24 million units, end date 12/02/16 Blood cultures negative for 5 days, urinalysis clear, Chest x-rays shows mild streaky opacity in the left lung base consistent with scarring DVT of the left lower extremity Patient on Xarelto Hypertension Cardizem 240 mg daily Diabetes mellitus 2, uncontrolled, Recent A1c 7.1 Accu-Cheks with sliding scale insulin Levemir 5 units every 12 hours Adjustment disorder with depressed mood Psychiatry has evaluated the patient and recommended medication changes. Trazodone 50 mg at bedtime Seroquel 50 mg at bedtime Klonopin 0.5 mg every 12 hours Facial lesions: Razor burn versus impetigo Patient started on Bactroban cream GI Prophylaxis: Protonix. DVT prophylaxis: Xarelto Discharge Planning Case management for discharge planning. Patient has completed antibiotics at this time. Patient still with left hemiplegia. Patient will likely stay in the hospital until able to ambulate home, once PT/OT clears the patient's to discharge home with home health care and home health care can be arranged by [facility] Josh Taylor Dec 15, 2016 10:58
[2016-12-15] MEDS: ACETAMINOPHEN 325 MG TAB PO PRN (18:09)
[2016-12-15 20:00] VITALS: BP 116/79; PULSE 92; RESP 20; TEMP 97.7; O2SAT 97
[2016-12-15] MEDS: traZODone HCL 50 MG TAB PO SCH (20:34)
[2016-12-15] MEDS: QUEtiapine FUMARATE 25 MG TAB PO SCH (20:34)
[2016-12-16] MEDS: INSULIN ASPART SUPPLEMENTAL SCALE SQ SCH ×4 (06:46→20:22)
[2016-12-16 08:00] VITALS: BP 131/78; PULSE 89; RESP 20; TEMP 98.1; O2SAT 95
[2016-12-16] MEDS: ASPIRIN 81 MG CHEW TAB CHEW SCH (08:00)
[2016-12-16] MEDS: DILTIAZEM-CD 240 MG CAP ER PO SCH (08:00)
[2016-12-16] MEDS: clonazePAM 0.5 MG TAB PO SCH ×2 (08:00→20:20)
[2016-12-16] MEDS: RIVAROXABAN 20 MG TAB PO SCH (08:01)
[2016-12-16] MEDS: SENNOSIDES 8.6 MG TAB PO SCH (08:01)
[2016-12-16] MEDS: PANTOPRAZOLE SOD 40 MG DELAYED RELEASE TAB PO SCH (08:01)
[2016-12-16] MEDS: DOCUSATE SODIUM 100 MG CAP PO SCH ×2 (08:01→20:20)
[2016-12-16] MEDS: THIAMINE HCL 100 MG TAB PO SCH (08:02)
[2016-12-16] MEDS: INSULIN DETEMIR 100 UNITS/ML VIAL SQ SCH ×2 (08:02→20:21)
[2016-12-16] MEDS: ACETAMINOPHEN 325 MG TAB PO PRN ×2 (08:03→17:40)
[2016-12-16] MEDS: MUPIROCIN 2% OINT 22 GM TUBE TOPICAL SCH ×2 (08:26→20:23)
--- NOTE | 2016-12-16 09:32 | HHI.PR ---
Subjective Remarks Patient seen and examined today. Patient denies any new complaints. No change in clinical status. Patient continues work with physical therapy Objective Vitals Vital Signs Date Time Temp Pulse Resp B/P Pulse Ox O2 Delivery O2 Flow Rate FiO2 12/16/16 09:10 18 12/16/16 08:00 98.1 89 20 131/78 95 12/15/16 20:00 97.7 92 20 116/79 97 I/O 12/15/16 12/15/16 12/15/16 12/16/16 12/16/16 12/16/16 07:00 15:00 23:00 07:00 15:00 23:00 Intake Total 240 ml 120 ml Output Total 300 ml 800 ml 300 ml 450 ml Balance -60 ml -800 ml -300 ml -330 ml Intake Oral 240 ml 120 ml Output Urine Total 300 ml 800 ml 300 ml 450 ml # Voids 3 # Bowel Movements 0 Objective Remarks GENERAL: This is a well-nourished, well-developed patient, in no apparent distress. GENERAL: Well-developed, well-nourished, in no acute distress. alert and orientated HEENT: Head is normocephalic without any lesions or masses noted. Patient does have left-sided facial droop. Eyes: Extraocular muscles are intact. Conjunctivae were clear. NECK: Supple without any masses. Trachea midline no deviation. No JVD, CARDIAC: Regular rhythm, regular rate. S1/S2 are heard. No murmurs gallops or rubs. LUNGS: Clear to auscultation bilaterally. No wheeze, rhonchi or rales. No use of accessory muscles on inspiration or expiration. ABDOMEN: Soft, nontender. Nondistended. Bowel sounds heard in all 4 quadrants. No organomegaly or masses. Negative rebound, negative guarding EXTREMITIES: No edema, pulses are equal bilaterally. No cyanosis or clubbing NEUROLOGY: Mood and affect appear appropriate. Patient able to flex and extend left ankle. Patient is starting to be L2 move his upper extremity. Unable to make a fist at this time. Right upper and lower extremity with 5/5 strength in 2+ deep tendon reflexes Urinary Catheter: No Vascular Central Line Catheter: No A/P Assessment and Plan Right Subacute basal ganglia infarct, with L hemiplegia Aspirin continued Continue PT/OT/ST evaluations --Xray left shoulder which did not indicate any acute abnormality or any separations Strep pneumonia meningitis, endocarditis, sepsis: Treated Infectious disease will need to be reconsulted since the patient left the hospital and patient with low-grade fever Completed Penicillin G 24 million units, end date 12/02/16 Blood cultures negative for 5 days, urinalysis clear, Chest x-rays shows mild streaky opacity in the left lung base consistent with scarring DVT of the left lower extremity Patient on Xarelto Hypertension Cardizem 240 mg daily Diabetes mellitus 2, control improved, Recent A1c 7.1 Accu-Cheks with sliding scale insulin Levemir 5 units every 12 hours Adjustment disorder with depressed mood Psychiatry has evaluated the patient and recommended medication changes. Trazodone 50 mg at bedtime Seroquel 50 mg at bedtime Klonopin 0.5 mg every 12 hours Facial lesions: Razor burn versus impetigo Patient started on Bactroban cream GI Prophylaxis: Protonix. DVT prophylaxis: Xarelto Discharge Planning Case management for discharge planning. Patient has completed antibiotics at this time. Patient still with left hemiplegia. Patient will likely stay in the hospital until able to ambulate home, once PT/OT clears the patient's to discharge home with home health care and home health care can be arranged by [facility] Josh Taylor Dec 16, 2016 09:32
[2016-12-16 20:00] VITALS: BP 108/74; PULSE 90; RESP 18; TEMP 97.8; O2SAT 96
[2016-12-16] MEDS: traZODone HCL 50 MG TAB PO SCH (20:20)
[2016-12-16] MEDS: QUEtiapine FUMARATE 25 MG TAB PO SCH (20:21)
[2016-12-17] MEDS: INSULIN ASPART SUPPLEMENTAL SCALE SQ SCH ×4 (06:10→20:02)
[2016-12-17 08:13] VITALS: BP 129/83; PULSE 84; RESP 18; TEMP 98.1; O2SAT 95
[2016-12-17] MEDS: clonazePAM 0.5 MG TAB PO SCH ×2 (08:49→20:02)
[2016-12-17] MEDS: PANTOPRAZOLE SOD 40 MG DELAYED RELEASE TAB PO SCH (08:49)
[2016-12-17] MEDS: THIAMINE HCL 100 MG TAB PO SCH (08:49)
[2016-12-17] MEDS: RIVAROXABAN 20 MG TAB PO SCH (08:49)
[2016-12-17] MEDS: DILTIAZEM-CD 240 MG CAP ER PO SCH (08:49)
[2016-12-17] MEDS: DOCUSATE SODIUM 100 MG CAP PO SCH ×2 (08:49→20:01)
[2016-12-17] MEDS: SENNOSIDES 8.6 MG TAB PO SCH (08:49)
[2016-12-17] MEDS: INSULIN DETEMIR 100 UNITS/ML VIAL SQ SCH ×2 (08:49→20:02)
[2016-12-17] MEDS: ASPIRIN 81 MG CHEW TAB CHEW SCH (08:49)
--- NOTE | 2016-12-17 09:54 | HHI.PR ---
Subjective Remarks Patient seen and examined today. Patient denies any new complaints. No change in clinical status. Objective Vitals Vital Signs Date Time Temp Pulse Resp B/P Pulse Ox O2 Delivery O2 Flow Rate FiO2 12/17/16 08:13 98.1 84 18 129/83 95 12/16/16 20:00 97.8 90 18 108/74 96 12/16/16 18:40 16 I/O 12/16/16 12/16/16 12/16/16 12/17/16 12/17/16 12/17/16 07:00 15:00 23:00 07:00 15:00 23:00 Intake Total 120 ml 780 ml 560 ml Output Total 450 ml 1600 ml 425 ml Balance -330 ml -820 ml 135 ml Intake Oral 120 ml 780 ml 560 ml Output Urine Total 450 ml 1600 ml 425 ml # Voids 3 # Bowel Movements 0 0 0 Objective Remarks GENERAL: This is a well-nourished, well-developed patient, in no apparent distress. GENERAL: Well-developed, well-nourished, in no acute distress. alert and orientated HEENT: Head is normocephalic without any lesions or masses noted. Patient does have left-sided facial droop. Eyes: Extraocular muscles are intact. Conjunctivae were clear. NECK: Supple without any masses. Trachea midline no deviation. No JVD, CARDIAC: Regular rhythm, regular rate. S1/S2 are heard. No murmurs gallops or rubs. LUNGS: Clear to auscultation bilaterally. No wheeze, rhonchi or rales. No use of accessory muscles on inspiration or expiration. ABDOMEN: Soft, nontender. Nondistended. Bowel sounds heard in all 4 quadrants. No organomegaly or masses. Negative rebound, negative guarding EXTREMITIES: No edema, pulses are equal bilaterally. No cyanosis or clubbing NEUROLOGY: Mood and affect appear appropriate. Patient able to flex and extend left ankle. Patient is able to move his left upper extremity, he is moving his fingers. Right upper and lower extremity with 5/5 strength in 2+ deep tendon reflexes Urinary Catheter: No Vascular Central Line Catheter: No A/P Assessment and Plan Right Subacute basal ganglia infarct, with L hemiplegia Aspirin continued Continue PT/OT/ST evaluations --Xray left shoulder which did not indicate any acute abnormality or any separations DVT of the left lower extremity Patient on Xarelto Strep pneumonia meningitis, endocarditis, sepsis: Treated Infectious disease will need to be reconsulted since the patient left the hospital and patient with low-grade fever Completed Penicillin G 24 million units, end date 12/02/16 Blood cultures negative for 5 days, urinalysis clear, Chest x-rays shows mild streaky opacity in the left lung base consistent with scarring Hypertension, blood pressure stable Cardizem 240 mg daily Diabetes mellitus 2, control improved, Recent A1c 7.1 Accu-Cheks with sliding scale insulin Levemir 5 units every 12 hours Adjustment disorder with depressed mood Psychiatry has evaluated the patient and recommended medication changes. Trazodone 50 mg at bedtime Seroquel 50 mg at bedtime Klonopin 0.5 mg every 12 hours Facial lesions: Razor burn versus impetigo, improved Patient started on Bactroban cream for 5 days GI Prophylaxis: Protonix. DVT prophylaxis: Xarelto Discharge Planning Case management for discharge planning. Patient has completed antibiotics at this time. Patient still with left hemiplegia. Patient will likely stay in the hospital until able to ambulate home, once PT/OT clears the patient's to discharge home with home health care and home health care can be arranged by [facility] Josh Taylor Dec 17, 2016 09:54
[2016-12-17] MEDS: MUPIROCIN 2% OINT 22 GM TUBE TOPICAL SCH ×2 (16:40→20:06)
[2016-12-17 20:00] VITALS: BP 134/88; PULSE 91; RESP 20; TEMP 99.6; O2SAT 95
[2016-12-17] MEDS: QUEtiapine FUMARATE 25 MG TAB PO SCH (20:01)
[2016-12-17] MEDS: traZODone HCL 50 MG TAB PO SCH (20:02)
[2016-12-18] MEDS: INSULIN ASPART SUPPLEMENTAL SCALE SQ SCH ×4 (06:30→21:00)
[2016-12-18 08:00] VITALS: BP 113/76; PULSE 83; RESP 20; TEMP 98; O2SAT 96
[2016-12-18] MEDS: PANTOPRAZOLE SOD 40 MG DELAYED RELEASE TAB PO SCH (08:21)
[2016-12-18] MEDS: clonazePAM 0.5 MG TAB PO SCH ×2 (08:22→21:26)
[2016-12-18] MEDS: ASPIRIN 81 MG CHEW TAB CHEW SCH (08:22)
[2016-12-18] MEDS: THIAMINE HCL 100 MG TAB PO SCH (08:22)
[2016-12-18] MEDS: SENNOSIDES 8.6 MG TAB PO SCH (08:22)
[2016-12-18] MEDS: RIVAROXABAN 20 MG TAB PO SCH (08:22)
[2016-12-18] MEDS: DILTIAZEM-CD 240 MG CAP ER PO SCH (08:22)
[2016-12-18] MEDS: DOCUSATE SODIUM 100 MG CAP PO SCH ×2 (08:22→21:25)
[2016-12-18] MEDS: MUPIROCIN 2% OINT 22 GM TUBE TOPICAL SCH ×2 (08:23→21:29)
[2016-12-18] MEDS: INSULIN DETEMIR 100 UNITS/ML VIAL SQ SCH ×2 (08:23→21:27)
--- NOTE | 2016-12-18 13:05 | HHI.PR ---
Subjective Remarks Patient seen and examined today. Patient denies any new complaints. Patient is hopeful that he'll be able to get out of here about January 07. Objective Vitals Vital Signs Date Time Temp Pulse Resp B/P Pulse Ox O2 Delivery O2 Flow Rate FiO2 12/18/16 08:00 98.0 83 20 113/76 96 12/17/16 20:00 99.6 91 20 134/88 95 I/O 12/17/16 12/17/16 12/17/16 12/18/16 12/18/16 12/18/16 07:00 15:00 23:00 07:00 15:00 23:00 Intake Total 560 ml 650 ml 480 ml 480 ml Output Total 425 ml 300 ml 750 ml Balance 135 ml 650 ml 180 ml -270 ml Intake Oral 560 ml 650 ml 480 ml 480 ml Output Urine Total 425 ml 300 ml 750 ml # Voids 3 # Bowel Movements 0 1 0 0 Imaging Last Impressions Shoulder X-Ray 12/06/16 0000 Signed Impressions: Service Date/Time: Tuesday, December 06, 2016 12:13 - CONCLUSION: Negative for fracture or dislocation. Follow up in 7-10 days is suggested if symptoms persist. Maximiliano Nielsen MD FACR Thoracic Spine MRI 11/24/16 0000 Signed Impressions: Service Date/Time: Thursday, November 24, 2016 15:26 - CONCLUSION: Mild multilevel disc protrusions. No significant associated anatomic compromise. No acute bony findings. Ubaldo Gomes MD Lumbar Spine MRI 11/24/16 0000 Signed Impressions: Service Date/Time: Thursday, November 24, 2016 15:26 - CONCLUSION: Disc protrusions throughout the lumbar spine with moderate canal stenosis at L4-5. Less severe changes at other levels as described. Ubaldo Gomes MD Lower Extremity Ultrasound 11/24/16 0000 Signed Impressions: Service Date/Time: Thursday, November 24, 2016 11:48 - CONCLUSION: 1. Extensive DVT throughout the left lower extremity: Melvin Nielsen MD Chest X-Ray 11/23/16 0000 Signed Impressions: Service Date/Time: Wednesday, November 23, 2016 16:40 - CONCLUSION: 1. Mild streaky opacity remains at the left lung base most consistent with scarring. 2. No definite evidence of pneumonia. Micha Wallace MD Objective Remarks GENERAL: This is a well-nourished, well-developed patient, in no apparent distress. GENERAL: Well-developed, well-nourished, in no acute distress. alert and orientated HEENT: Head is normocephalic without any lesions or masses noted. Patient does have left-sided facial droop. Eyes: Extraocular muscles are intact. Conjunctivae were clear. NECK: Supple without any masses. Trachea midline no deviation. No JVD, CARDIAC: Regular rhythm, regular rate. S1/S2 are heard. No murmurs gallops or rubs. LUNGS: Clear to auscultation bilaterally. No wheeze, rhonchi or rales. No use of accessory muscles on inspiration or expiration. ABDOMEN: Soft, nontender. Nondistended. Bowel sounds heard in all 4 quadrants. No organomegaly or masses. Negative rebound, negative guarding EXTREMITIES: No edema, pulses are equal bilaterally. No cyanosis or clubbing NEUROLOGY: Mood and affect appear appropriate. Patient able to flex and extend left ankle. Patient is able to move his left upper extremity, he is moving his fingers. Right upper and lower extremity with 5/5 strength in 2+ deep tendon reflexes Urinary Catheter: No Vascular Central Line Catheter: No A/P Assessment and Plan Right Subacute basal ganglia infarct, with L hemiplegia Aspirin continued Continue PT/OT/ST evaluations --Xray left shoulder which did not indicate any acute abnormality or any separations DVT of the left lower extremity Patient on Xarelto Strep pneumonia meningitis, endocarditis, sepsis: Treated Infectious disease will need to be reconsulted since the patient left the hospital and patient with low-grade fever Completed Penicillin G 24 million units, end date 12/02/16 Blood cultures negative for 5 days, urinalysis clear, Chest x-rays shows mild streaky opacity in the left lung base consistent with scarring Hypertension, blood pressure stable Cardizem 240 mg daily Diabetes mellitus 2, control improved, Recent A1c 7.1 Accu-Cheks with sliding scale insulin Levemir 5 units every 12 hours Adjustment disorder with depressed mood Psychiatry has evaluated the patient and recommended medication changes. Trazodone 50 mg at bedtime Seroquel 50 mg at bedtime Klonopin 0.5 mg every 12 hours Facial lesions: Razor burn versus impetigo, improved Patient started on Bactroban cream for 5 days GI Prophylaxis: Protonix. DVT prophylaxis: Xarelto Discharge Planning Case management for discharge planning. Patient has completed antibiotics at this time. Patient still with left hemiplegia. Patient will likely stay in the hospital until able to ambulate home, once PT/OT clears the patient's to discharge home with home health care and home health care can be arranged by [facility] Josh Taylor Dec 18, 2016 13:05 Olivier Silveira MD Dec 18, 2016 21:49
[2016-12-18 20:00] VITALS: BP 118/85; PULSE 89; RESP 18; TEMP 97.6; O2SAT 97
[2016-12-18] MEDS: traZODone HCL 50 MG TAB PO SCH (21:25)
[2016-12-18] MEDS: QUEtiapine FUMARATE 25 MG TAB PO SCH (21:26)
--- NOTE | 2016-12-19 07:58 | HHI.PR ---
Subjective Remarks Patient seen and examined today. Patient denies any new complaints. Patient essentially on discharge that he will need to get stronger and have clearance from therapy services prior to discharge. He does understand. Objective Vitals Vital Signs Date Time Temp Pulse Resp B/P Pulse Ox O2 Delivery O2 Flow Rate FiO2 12/18/16 20:00 97.6 89 18 118/85 97 12/18/16 08:00 98.0 83 20 113/76 96 I/O 12/18/16 12/18/16 12/18/16 12/19/16 12/19/16 12/19/16 07:00 15:00 23:00 07:00 15:00 23:00 Intake Total 480 ml 690 ml 420 ml Output Total 750 ml 900 ml 1400 ml Balance -270 ml -210 ml -980 ml Intake Oral 480 ml 690 ml 420 ml Output Urine Total 750 ml 900 ml 1400 ml # Bowel Movements 0 1 1 Objective Remarks GENERAL: This is a well-nourished, well-developed patient, in no apparent distress. GENERAL: Well-developed, well-nourished, in no acute distress. alert and orientated HEENT: Head is normocephalic without any lesions or masses noted. Patient does have left-sided facial droop. Eyes: Extraocular muscles are intact. Conjunctivae were clear. NECK: Supple without any masses. Trachea midline no deviation. No JVD, CARDIAC: Regular rhythm, regular rate. S1/S2 are heard. No murmurs gallops or rubs. LUNGS: Clear to auscultation bilaterally. No wheeze, rhonchi or rales. No use of accessory muscles on inspiration or expiration. ABDOMEN: Soft, nontender. Nondistended. Bowel sounds heard in all 4 quadrants. No organomegaly or masses. Negative rebound, negative guarding EXTREMITIES: No edema, pulses are equal bilaterally. No cyanosis or clubbing NEUROLOGY: Mood and affect appear appropriate. Patient able to flex and extend left ankle. Patient is able to move his left upper extremity, he is moving his fingers. Right upper and lower extremity with 5/5 strength in 2+ deep tendon reflexes Urinary Catheter: No Vascular Central Line Catheter: No A/P Assessment and Plan Right Subacute basal ganglia infarct, with L hemiplegia Aspirin continued Continue PT/OT/ST evaluations --Xray left shoulder which did not indicate any acute abnormality or any separations DVT of the left lower extremity Patient on Xarelto Strep pneumonia meningitis, endocarditis, sepsis: Treated Infectious disease will need to be reconsulted since the patient left the hospital and patient with low-grade fever Completed Penicillin G 24 million units, end date 12/02/16 Blood cultures negative for 5 days, urinalysis clear, Chest x-rays shows mild streaky opacity in the left lung base consistent with scarring Hypertension, blood pressure stable Cardizem 240 mg daily Diabetes mellitus 2, control improved, Recent A1c 7.1 Accu-Cheks changed to daily with sliding scale insulin Levemir 5 units every 12 hours Adjustment disorder with depressed mood Psychiatry has evaluated the patient and recommended medication changes. Trazodone 50 mg at bedtime Seroquel 50 mg at bedtime Klonopin 0.5 mg every 12 hours Facial lesions: Razor burn versus impetigo, improved Patient started on Bactroban cream for 5 days GI Prophylaxis: Protonix. DVT prophylaxis: Xarelto Discharge Planning Case management for discharge planning. Patient has completed antibiotics at this time. Patient still with left hemiplegia. Patient will likely stay in the hospital until able to ambulate home, once PT/OT clears the patient's to discharge home with home health care and home health care can be arranged by [facility] Josh Taylor Dec 19, 2016 07:58 Olivier Silveira MD Dec 19, 2016 14:03
[2016-12-19] MEDS: INSULIN ASPART SUPPLEMENTAL SCALE SQ SCH (08:00)
[2016-12-19 08:19] VITALS: BP 120/87; PULSE 82; RESP 19; TEMP 97.6; O2SAT 96
[2016-12-19] MEDS: RIVAROXABAN 20 MG TAB PO SCH (08:34)
[2016-12-19] MEDS: clonazePAM 0.5 MG TAB PO SCH ×2 (08:34→21:52)
[2016-12-19] MEDS: ASPIRIN 81 MG CHEW TAB CHEW SCH (08:34)
[2016-12-19] MEDS: DOCUSATE SODIUM 100 MG CAP PO SCH ×2 (08:34→21:52)
[2016-12-19] MEDS: THIAMINE HCL 100 MG TAB PO SCH (08:34)
[2016-12-19] MEDS: DILTIAZEM-CD 240 MG CAP ER PO SCH (08:34)
[2016-12-19] MEDS: SENNOSIDES 8.6 MG TAB PO SCH (08:34)
[2016-12-19] MEDS: PANTOPRAZOLE SOD 40 MG DELAYED RELEASE TAB PO SCH (08:34)
[2016-12-19] MEDS: INSULIN DETEMIR 100 UNITS/ML VIAL SQ SCH ×2 (08:36→21:53)
[2016-12-19] MEDS: MUPIROCIN 2% OINT 22 GM TUBE TOPICAL SCH (09:00)
[2016-12-19] MEDS: ACETAMINOPHEN 325 MG TAB PO PRN (19:49)
[2016-12-19 20:00] VITALS: BP 113/81; PULSE 93; RESP 20; TEMP 99.3; O2SAT 96
[2016-12-19] MEDS: QUEtiapine FUMARATE 25 MG TAB PO SCH (21:52)
[2016-12-19] MEDS: traZODone HCL 50 MG TAB PO SCH (21:59)
[2016-12-20 08:00] VITALS: BP 95/65; PULSE 83; RESP 20; TEMP 97.8; O2SAT 94
[2016-12-20] MEDS: INSULIN ASPART SUPPLEMENTAL SCALE SQ SCH (08:00)
[2016-12-20] MEDS: INSULIN DETEMIR 100 UNITS/ML VIAL SQ SCH ×2 (09:01→20:33)
[2016-12-20] MEDS: ASPIRIN 81 MG CHEW TAB CHEW SCH (09:03)
[2016-12-20] MEDS: PANTOPRAZOLE SOD 40 MG DELAYED RELEASE TAB PO SCH (09:03)
[2016-12-20] MEDS: SENNOSIDES 8.6 MG TAB PO SCH (09:03)
[2016-12-20] MEDS: DOCUSATE SODIUM 100 MG CAP PO SCH ×2 (09:03→20:32)
[2016-12-20] MEDS: RIVAROXABAN 20 MG TAB PO SCH (09:03)
[2016-12-20] MEDS: THIAMINE HCL 100 MG TAB PO SCH (09:03)
[2016-12-20] MEDS: DILTIAZEM-CD 240 MG CAP ER PO SCH (09:04)
[2016-12-20] MEDS: clonazePAM 0.5 MG TAB PO SCH ×2 (09:05→20:32)
--- NOTE | 2016-12-20 11:43 | HHI.PR ---
Subjective Remarks Patient seen and examined today. Patient denies any new complaints. No change in clinical status. Patient lying in bed comfortably Objective Vitals Vital Signs Date Time Temp Pulse Resp B/P Pulse Ox O2 Delivery O2 Flow Rate FiO2 12/20/16 08:00 97.8 83 20 95/65 94 12/19/16 20:00 99.3 93 20 113/81 96 I/O 12/19/16 12/19/16 12/19/16 12/20/16 12/20/16 12/20/16 07:00 15:00 23:00 07:00 15:00 23:00 Intake Total 420 ml 0 ml 1310 ml 240 ml 0 ml Output Total 1400 ml 300 ml 700 ml Balance -980 ml 0 ml 1010 ml -460 ml 0 ml Intake Oral 420 ml 1310 ml 240 ml IV Total 0 ml 0 ml 0 ml Output Urine Total 1400 ml 300 ml 700 ml # Voids 4 # Bowel Movements 1 Objective Remarks GENERAL: This is a well-nourished, well-developed patient, in no apparent distress. GENERAL: Well-developed, well-nourished, in no acute distress. alert and orientated HEENT: Head is normocephalic without any lesions or masses noted. Patient does have left-sided facial droop. Eyes: Extraocular muscles are intact. Conjunctivae were clear. NECK: Supple without any masses. Trachea midline no deviation. No JVD, CARDIAC: Regular rhythm, regular rate. S1/S2 are heard. No murmurs gallops or rubs. LUNGS: Clear to auscultation bilaterally. No wheeze, rhonchi or rales. No use of accessory muscles on inspiration or expiration. ABDOMEN: Soft, nontender. Nondistended. Bowel sounds heard in all 4 quadrants. No organomegaly or masses. Negative rebound, negative guarding EXTREMITIES: No edema, pulses are equal bilaterally. No cyanosis or clubbing NEUROLOGY: Mood and affect appear appropriate. Patient able to flex and extend left ankle. Patient is able to move his left upper extremity, he is moving his fingers. Right upper and lower extremity with 5/5 strength in 2+ deep tendon reflexes Urinary Catheter: No Vascular Central Line Catheter: No A/P Assessment and Plan Right Subacute basal ganglia infarct, with L hemiplegia Aspirin continued Continue PT/OT/ST evaluations --Xray left shoulder which did not indicate any acute abnormality or any separations DVT of the left lower extremity Patient on Xarelto Strep pneumonia meningitis, endocarditis, sepsis: Treated Infectious disease will need to be reconsulted since the patient left the hospital and patient with low-grade fever Completed Penicillin G 24 million units, end date 12/02/16 Blood cultures negative for 5 days, urinalysis clear, Chest x-rays shows mild streaky opacity in the left lung base consistent with scarring Hypertension, blood pressure stable Cardizem 240 mg daily Diabetes mellitus 2, control improved, Recent A1c 7.1 Accu-Cheks changed to daily with sliding scale insulin Levemir 5 units every 12 hours Adjustment disorder with depressed mood Psychiatry has evaluated the patient and recommended medication changes. Trazodone 50 mg at bedtime Seroquel 50 mg at bedtime Klonopin 0.5 mg every 12 hours GI Prophylaxis: Protonix. DVT prophylaxis: Xarelto Discharge Planning Case management for discharge planning. Patient has completed antibiotics at this time. Patient still with left hemiplegia. Patient will likely stay in the hospital until able to ambulate home, once PT/OT clears the patient's to discharge home with home health care and home health care can be arranged by [facility] Josh Taylor Dec 20, 2016 11:43 Olivier Silveira MD Dec 20, 2016 14:06
[2016-12-20] MEDS: ACETAMINOPHEN 325 MG TAB PO PRN (14:54)
[2016-12-20 20:00] VITALS: BP 113/76; PULSE 90; RESP 20; TEMP 97.6; O2SAT 95
[2016-12-20] MEDS: traZODone HCL 50 MG TAB PO SCH (20:32)
[2016-12-20] MEDS: QUEtiapine FUMARATE 25 MG TAB PO SCH (20:32)
[2016-12-21 08:00] VITALS: BP 95/83; PULSE 81; RESP 20; TEMP 96.9; O2SAT 92
[2016-12-21] MEDS: INSULIN ASPART SUPPLEMENTAL SCALE SQ SCH (08:00)
[2016-12-21] MEDS: INSULIN DETEMIR 100 UNITS/ML VIAL SQ SCH ×2 (08:16→20:05)
[2016-12-21] MEDS: DILTIAZEM-CD 240 MG CAP ER PO SCH (08:17)
[2016-12-21] MEDS: PANTOPRAZOLE SOD 40 MG DELAYED RELEASE TAB PO SCH (08:17)
[2016-12-21] MEDS: RIVAROXABAN 20 MG TAB PO SCH (08:17)
[2016-12-21] MEDS: THIAMINE HCL 100 MG TAB PO SCH (08:17)
[2016-12-21] MEDS: ASPIRIN 81 MG CHEW TAB CHEW SCH (08:17)
[2016-12-21] MEDS: clonazePAM 0.5 MG TAB PO SCH ×2 (08:17→20:05)
[2016-12-21] MEDS: DOCUSATE SODIUM 100 MG CAP PO SCH ×2 (08:18→20:05)
[2016-12-21] MEDS: SENNOSIDES 8.6 MG TAB PO SCH (08:18)
--- NOTE | 2016-12-21 11:27 | HHI.PR ---
Subjective Remarks Patient seen and examined today. Patient denies any new complaints. No change in clinical status. Patient still wanted no what the criteria is for him to be only go home. I notified him to obtain information from physical therapy Objective Vitals Vital Signs Date Time Temp Pulse Resp B/P Pulse Ox O2 Delivery O2 Flow Rate FiO2 12/21/16 08:00 96.9 81 20 95/83 92 12/20/16 20:00 97.6 90 20 113/76 95 I/O 12/20/16 12/20/16 12/20/16 12/21/16 12/21/16 12/21/16 07:00 15:00 23:00 07:00 15:00 23:00 Intake Total 240 ml 760 ml 480 ml 480 ml Output Total 700 ml 1200 ml 400 ml 700 ml Balance -460 ml -440 ml 80 ml -220 ml Intake Oral 240 ml 760 ml 480 ml 480 ml IV Total 0 ml Output Urine Total 700 ml 1200 ml 400 ml 700 ml # Bowel Movements 0 0 0 Objective Remarks GENERAL: This is a well-nourished, well-developed patient, in no apparent distress. GENERAL: Well-developed, well-nourished, in no acute distress. alert and orientated HEENT: Head is normocephalic without any lesions or masses noted. Patient does have left-sided facial droop. Eyes: Extraocular muscles are intact. Conjunctivae were clear. NECK: Supple without any masses. Trachea midline no deviation. No JVD, CARDIAC: Regular rhythm, regular rate. S1/S2 are heard. No murmurs gallops or rubs. LUNGS: Clear to auscultation bilaterally. No wheeze, rhonchi or rales. No use of accessory muscles on inspiration or expiration. ABDOMEN: Soft, nontender. Nondistended. Bowel sounds heard in all 4 quadrants. No organomegaly or masses. Negative rebound, negative guarding EXTREMITIES: No edema, pulses are equal bilaterally. No cyanosis or clubbing NEUROLOGY: Mood and affect appear appropriate. Patient able to flex and extend left ankle. Patient is able to move his left upper extremity, he is moving his fingers. Right upper and lower extremity with 5/5 strength in 2+ deep tendon reflexes Urinary Catheter: No Vascular Central Line Catheter: No A/P Assessment and Plan Right Subacute basal ganglia infarct, with L hemiplegia Aspirin continued Continue PT/OT/ST evaluations --Xray left shoulder which did not indicate any acute abnormality or any separations DVT of the left lower extremity Patient on Xarelto Strep pneumonia meningitis, endocarditis, sepsis: Treated Infectious disease will need to be reconsulted since the patient left the hospital and patient with low-grade fever Completed Penicillin G 24 million units, end date 12/02/16 Blood cultures negative for 5 days, urinalysis clear, Chest x-rays shows mild streaky opacity in the left lung base consistent with scarring Hypertension, blood pressure stable Cardizem 240 mg daily Diabetes mellitus 2, control improved, Recent A1c 7.1 Accu-Cheks changed to daily with sliding scale insulin Levemir 5 units every 12 hours Adjustment disorder with depressed mood Psychiatry has evaluated the patient and recommended medication changes. Trazodone 50 mg at bedtime Seroquel 50 mg at bedtime Klonopin 0.5 mg every 12 hours GI Prophylaxis: Protonix. DVT prophylaxis: Xarelto Discharge Planning Case management for discharge planning. Patient has completed antibiotics at this time. Patient still with left hemiplegia. Patient will likely stay in the hospital until able to ambulate home, once PT/OT clears the patient's to discharge home with home health care and home health care can be arranged by [facility] Josh Taylor Dec 21, 2016 11:27 Olivier Silveira MD Dec 21, 2016 16:05
[2016-12-21 20:00] VITALS: BP 121/78; PULSE 88; RESP 20; TEMP 98.3; O2SAT 97
[2016-12-21] MEDS: traZODone HCL 50 MG TAB PO SCH (20:04)
[2016-12-21] MEDS: QUEtiapine FUMARATE 25 MG TAB PO SCH (20:05)
[2016-12-22 08:00] VITALS: BP 101/73; PULSE 81; RESP 16; TEMP 97; O2SAT 94
[2016-12-22] MEDS: INSULIN ASPART SUPPLEMENTAL SCALE SQ SCH (08:00)
[2016-12-22] MEDS: DILTIAZEM-CD 240 MG CAP ER PO SCH (09:00)
[2016-12-22] MEDS: ASPIRIN 81 MG CHEW TAB CHEW SCH (09:14)
[2016-12-22] MEDS: THIAMINE HCL 100 MG TAB PO SCH (09:15)
[2016-12-22] MEDS: DOCUSATE SODIUM 100 MG CAP PO SCH ×2 (09:15→21:44)
[2016-12-22] MEDS: RIVAROXABAN 20 MG TAB PO SCH (09:15)
[2016-12-22] MEDS: PANTOPRAZOLE SOD 40 MG DELAYED RELEASE TAB PO SCH (09:15)
[2016-12-22] MEDS: INSULIN DETEMIR 100 UNITS/ML VIAL SQ SCH ×2 (09:15→21:45)
[2016-12-22] MEDS: SENNOSIDES 8.6 MG TAB PO SCH (09:15)
[2016-12-22] MEDS: clonazePAM 0.5 MG TAB PO SCH ×2 (09:15→21:44)
--- NOTE | 2016-12-22 10:32 | HHI.PR ---
Subjective Remarks Patient seen and examined today in follow up on CVA, left hemiparesis. Patient still very anxious to leave the hospital. Notified him to speak with physical therapy today to see what their goal is for him to be safe enough to go home. Objective Vitals Vital Signs Date Time Temp Pulse Resp B/P Pulse Ox O2 Delivery O2 Flow Rate FiO2 12/22/16 08:00 97.0 81 16 101/73 94 12/21/16 20:00 98.3 88 20 121/78 97 I/O 12/21/16 12/21/16 12/21/16 12/22/16 12/22/16 12/22/16 07:00 15:00 23:00 07:00 15:00 23:00 Intake Total 480 ml 1080 ml 240 ml 240 ml Output Total 700 ml 1100 ml 675 ml 950 ml Balance -220 ml -20 ml -435 ml -710 ml Intake Oral 480 ml 1080 ml 240 ml 240 ml IV Total 0 ml Output Urine Total 700 ml 1100 ml 675 ml 950 ml # Voids 2 3 # Bowel Movements 0 0 0 Objective Remarks GENERAL: This is a well-nourished, well-developed patient, in no apparent distress. GENERAL: Well-developed, well-nourished, in no acute distress. alert and orientated HEENT: Head is normocephalic without any lesions or masses noted. Patient does have left-sided facial droop. Eyes: Extraocular muscles are intact. Conjunctivae were clear. NECK: Supple without any masses. Trachea midline no deviation. No JVD, CARDIAC: Regular rhythm, regular rate. S1/S2 are heard. No murmurs gallops or rubs. LUNGS: Clear to auscultation bilaterally. No wheeze, rhonchi or rales. No use of accessory muscles on inspiration or expiration. ABDOMEN: Soft, nontender. Nondistended. Bowel sounds heard in all 4 quadrants. No organomegaly or masses. Negative rebound, negative guarding EXTREMITIES: No edema, pulses are equal bilaterally. No cyanosis or clubbing NEUROLOGY: Mood and affect appear appropriate. Patient able to flex and extend left ankle. Patient is able to move his left upper extremity, he is moving his fingers. Right upper and lower extremity with 5/5 strength in 2+ deep tendon reflexes Urinary Catheter: No Vascular Central Line Catheter: No A/P Assessment and Plan Right Subacute basal ganglia infarct, with L hemiplegia Aspirin continued Continue PT/OT/ST evaluations --Xray left shoulder which did not indicate any acute abnormality or any separations DVT of the left lower extremity Patient on Xarelto Strep pneumonia meningitis, endocarditis, sepsis: Treated Infectious disease will need to be reconsulted since the patient left the hospital and patient with low-grade fever Completed Penicillin G 24 million units, end date 12/02/16 Blood cultures negative for 5 days, urinalysis clear, Chest x-rays shows mild streaky opacity in the left lung base consistent with scarring Hypertension, blood pressure stable Cardizem 240 mg daily Diabetes mellitus 2, control improved, Recent A1c 7.1 Accu-Cheks changed to daily with sliding scale insulin Levemir 5 units every 12 hours Adjustment disorder with depressed mood Psychiatry has evaluated the patient and recommended medication changes. Trazodone 50 mg at bedtime Seroquel 50 mg at bedtime Klonopin 0.5 mg every 12 hours GI Prophylaxis: Protonix. DVT prophylaxis: Xarelto Discharge Planning Case management for discharge planning. Patient has completed antibiotics at this time. Patient still with left hemiplegia. Patient will likely stay in the hospital until able to ambulate home, once PT/OT clears the patient's to discharge home with home health care and home health care can be arranged by [facility] Josh Taylor Dec 22, 2016 10:32
[2016-12-22 20:00] VITALS: BP 120/79; PULSE 99; RESP 20; TEMP 98.9; O2SAT 98
[2016-12-22] MEDS: QUEtiapine FUMARATE 25 MG TAB PO SCH (21:44)
[2016-12-22] MEDS: traZODone HCL 50 MG TAB PO SCH (21:44)
[2016-12-22] MEDS: ACETAMINOPHEN 325 MG TAB PO PRN (21:49)
[2016-12-23 08:00] VITALS: BP 118/81; PULSE 83; RESP 18; TEMP 98; O2SAT 97
[2016-12-23] MEDS: INSULIN ASPART SUPPLEMENTAL SCALE SQ SCH (08:00)
[2016-12-23] MEDS: DOCUSATE SODIUM 100 MG CAP PO SCH ×2 (09:00→20:50)
[2016-12-23] MEDS: RIVAROXABAN 20 MG TAB PO SCH (09:30)
[2016-12-23] MEDS: INSULIN DETEMIR 100 UNITS/ML VIAL SQ SCH ×2 (09:30→20:50)
[2016-12-23] MEDS: THIAMINE HCL 100 MG TAB PO SCH (09:30)
[2016-12-23] MEDS: PANTOPRAZOLE SOD 40 MG DELAYED RELEASE TAB PO SCH (09:31)
[2016-12-23] MEDS: clonazePAM 0.5 MG TAB PO SCH ×2 (09:31→20:49)
[2016-12-23] MEDS: SENNOSIDES 8.6 MG TAB PO SCH (09:31)
[2016-12-23] MEDS: DILTIAZEM-CD 240 MG CAP ER PO SCH (09:31)
[2016-12-23] MEDS: ASPIRIN 81 MG CHEW TAB CHEW SCH (09:31)
[2016-12-23] MEDS: ACETAMINOPHEN 325 MG TAB PO PRN (12:08)
--- NOTE | 2016-12-23 15:20 | HHI.PR ---
Subjective Remarks Follow-up for CVA, left-sided hemiparesis, and left lower extremity DVT. Patient is somewhat frustrated as he states that whenever he talks physical therapy they ask him if he will be able to manage at home and he tells them that he will be able to do so, but then when he asks about a timeline of discharge they're unsure. Patient states that he lives with his girlfriend and she will be able to help him. He states he has a "stripper pole" at home which he uses to assist himself in getting up. Objective Vitals Vital Signs Date Time Temp Pulse Resp B/P Pulse Ox O2 Delivery O2 Flow Rate FiO2 12/23/16 13:08 18 12/23/16 08:00 98.0 83 18 118/81 97 12/22/16 20:00 98.9 99 20 120/79 98 I/O 12/22/16 12/22/16 12/22/16 12/23/16 12/23/16 12/23/16 07:00 15:00 23:00 07:00 15:00 23:00 Intake Total 240 ml 360 ml 1680 ml 130 ml Output Total 950 ml 325 ml 550 ml 250 ml Balance -710 ml 360 ml 1355 ml -420 ml -250 ml Intake Oral 240 ml 360 ml 1680 ml 130 ml Output Urine Total 950 ml 325 ml 550 ml 250 ml # Voids 3 4 5 2 # Bowel Movements 0 1 0 0 Objective Remarks GENERAL: Well-nourished, well developed patient no apparent distress. SKIN: Warm and dry. CARDIOVASCULAR: Regular rate and rhythm. RESPIRATORY: No accessory muscle use. Mildly coarse breath sounds. GASTROINTESTINAL: Normoactive bowel sounds. Abdomen soft, non-tender, nondistended. MUSCULOSKELETAL: No pitting edema LLE. 2+ DP pulses bilaterally. NEUROLOGICAL: Awake and alert. Normal speech. 3-4/5 strength with left plantar flexion and dorsiflexion compared to 5/5 on the right. PSYCHIATRIC: Insight and judgment normal. 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 Penicillin G completed 12/02/16. Blood cultures 11/23 NGTD. Chest x-ray 11/23: lungs symmetrically aerated without evidence of mass, confluent infiltrate or effusion. Mild streaky opacity remains at the left lung base most consistent with scarring. No e/o PNA. UA 11/23 negative WBC improved. CRP stable. Extensive DVT LLE -Continue Xarelto -Had fevers due to DVT but afebrile since 12/05 Right Subacute basal ganglia infarct, with L hemiplegia Aspirin continued Continue PT/OT/ST evaluations. PT indicates need for wheelchair and left ankle and foot orthosis as well as PT at rehabilitation. Trapeze ordered Unspecified personality disorder/Adjustment disorder with depressed mood/ Polysubstance dependence: -Psychiatry consultation appreciated. Continue Clonazepam, Seroquel, and Trazodone. Back pain MRI thoracic and lumbar spine 11/24 with disc protrusions but no evidence of infection. Continue with Tylenol prn Scheduled narcotics will not be ordered. Hypertension -Cardizem 240 mg daily -Monitor and adjust medication as needed Tachycardia Monitor Anemia Mild Hemoglobin stable Diabetes mellitus 2, uncontrolled, with A1c 7.1: Improved. Continue with Accu-Cheks with sliding scale insulin Continue Levemir 5 units every 12 hours. BGLs well controlled currently. Diabetic diet GI Prophylaxis: Protonix DVT prophylaxis: Xarelto Discharge Planning CM continuing to follow for SSI approval and acceptance. OT and PT recommending rehab. Kirsten Fournier Dec 23, 2016 15:20 Discharge Planning CM continuing to follow for SSI approval and acceptance. OT and PT recommending rehab. Kirsten Fournier Dec 23, 2016 15:20
[2016-12-23 20:00] VITALS: BP 104/85; PULSE 87; RESP 21; TEMP 98; O2SAT 96
[2016-12-23] MEDS: traZODone HCL 50 MG TAB PO SCH (20:49)
[2016-12-23] MEDS: QUEtiapine FUMARATE 25 MG TAB PO SCH (20:49)
[2016-12-24 08:00] VITALS: BP 114/79; PULSE 84; RESP 20; TEMP 97.9; O2SAT 96
[2016-12-24] MEDS: INSULIN ASPART SUPPLEMENTAL SCALE SQ SCH (08:00)
[2016-12-24] MEDS: RIVAROXABAN 20 MG TAB PO SCH (08:52)
[2016-12-24] MEDS: ASPIRIN 81 MG CHEW TAB CHEW SCH (08:52)
[2016-12-24] MEDS: DILTIAZEM-CD 240 MG CAP ER PO SCH (08:52)
[2016-12-24] MEDS: clonazePAM 0.5 MG TAB PO SCH ×2 (08:52→20:11)
[2016-12-24] MEDS: THIAMINE HCL 100 MG TAB PO SCH (08:52)
[2016-12-24] MEDS: SENNOSIDES 8.6 MG TAB PO SCH (08:52)
[2016-12-24] MEDS: INSULIN DETEMIR 100 UNITS/ML VIAL SQ SCH ×2 (08:52→20:11)
[2016-12-24] MEDS: PANTOPRAZOLE SOD 40 MG DELAYED RELEASE TAB PO SCH (08:52)
[2016-12-24] MEDS: DOCUSATE SODIUM 100 MG CAP PO SCH ×2 (08:53→20:10)
--- NOTE | 2016-12-24 10:33 | HHI.PR ---
Subjective Remarks Follow-up for CVA, hemiparesis, and LLE DVT s/p treatment for endocarditis, pneumonia, and meningitis. No acute complaints. Objective Vitals Vital Signs Date Time Temp Pulse Resp B/P Pulse Ox O2 Delivery O2 Flow Rate FiO2 12/24/16 08:00 97.9 84 20 114/79 96 12/23/16 20:00 98.0 87 21 104/85 96 12/23/16 13:08 18 I/O 12/23/16 12/23/16 12/23/16 12/24/16 12/24/16 12/24/16 07:00 15:00 23:00 07:00 15:00 23:00 Intake Total 130 ml 840 ml 240 ml 620 ml Output Total 550 ml 250 ml 301 ml 550 ml 350 ml Balance -420 ml -250 ml 539 ml -310 ml 270 ml Intake Oral 130 ml 840 ml 240 ml 620 ml Output Urine Total 550 ml 250 ml 300 ml 550 ml 350 ml Stool Total 1 ml # Voids 2 7 # Bowel Movements 0 Objective Remarks GENERAL: Well-nourished, well developed patient no apparent distress. SKIN: Warm and dry. CARDIOVASCULAR: Regular rate and rhythm. RESPIRATORY: No accessory muscle use. CTAB. GASTROINTESTINAL: Normoactive bowel sounds. Abdomen soft, non-tender, nondistended. MUSCULOSKELETAL: Left leg is larger than the right, but no pitting edema LLE. NEUROLOGICAL: Awake and alert. Normal speech. 4/5 strength with left plantar flexion and dorsiflexion compared to 5/5 on the right. PSYCHIATRIC: Insight and judgment normal. 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 Penicillin G completed 12/02/16. Blood cultures 11/23 NGTD. Chest x-ray 11/23: lungs symmetrically aerated without evidence of mass, confluent infiltrate or effusion. Mild streaky opacity remains at the left lung base most consistent with scarring. No e/o PNA. UA 11/23 negative WBC improved. CRP stable. Extensive DVT LLE -Continue Xarelto -Had fevers due to DVT but afebrile since 12/05 Right Subacute basal ganglia infarct, with L hemiplegia Aspirin continued Continue PT/OT/ST evaluations. PT indicates need for wheelchair and left ankle and foot orthosis as well as PT at rehabilitation. Trapeze ordered Unspecified personality disorder/Adjustment disorder with depressed mood/ Polysubstance dependence: -Psychiatry consultation appreciated. Continue Clonazepam, Seroquel, and Trazodone. Back pain MRI thoracic and lumbar spine 11/24 with disc protrusions but no evidence of infection. Continue with Tylenol prn Scheduled narcotics will not be ordered. Hypertension -Cardizem 240 mg daily -Monitor and adjust medication as needed Tachycardia Monitor Anemia Mild Hemoglobin stable Diabetes mellitus 2, uncontrolled, with A1c 7.1: Improved. Continue with Accu-Cheks with sliding scale insulin Continue Levemir 5 units every 12 hours. BGLs well controlled currently. Diabetic diet GI Prophylaxis: Protonix DVT prophylaxis: Xarelto Discharge Planning OT and PT recommending rehab. 12/19: Per CM, patient now medicaid approved; following for SSI approval, then will need to find SNF. Kirsten Fournier Dec 24, 2016 10:33
[2016-12-24 20:00] VITALS: BP 126/82; PULSE 90; RESP 20; TEMP 98; O2SAT 98
[2016-12-24] MEDS: QUEtiapine FUMARATE 25 MG TAB PO SCH (20:11)
[2016-12-24] MEDS: traZODone HCL 50 MG TAB PO SCH (20:11)
[2016-12-25 08:00] VITALS: BP 105/74; PULSE 81; RESP 20; TEMP 97.5; O2SAT 96
[2016-12-25] MEDS: INSULIN ASPART SUPPLEMENTAL SCALE SQ SCH (08:00)
[2016-12-25] MEDS: INSULIN DETEMIR 100 UNITS/ML VIAL SQ SCH ×2 (09:35→20:33)
[2016-12-25] MEDS: RIVAROXABAN 20 MG TAB PO SCH (09:36)
[2016-12-25] MEDS: ASPIRIN 81 MG CHEW TAB CHEW SCH (09:36)
[2016-12-25] MEDS: THIAMINE HCL 100 MG TAB PO SCH (09:36)
[2016-12-25] MEDS: DOCUSATE SODIUM 100 MG CAP PO SCH ×2 (09:36→20:32)
[2016-12-25] MEDS: SENNOSIDES 8.6 MG TAB PO SCH (09:36)
[2016-12-25] MEDS: clonazePAM 0.5 MG TAB PO SCH ×2 (09:36→20:32)
[2016-12-25] MEDS: PANTOPRAZOLE SOD 40 MG DELAYED RELEASE TAB PO SCH (09:36)
[2016-12-25] MEDS: DILTIAZEM-CD 240 MG CAP ER PO SCH (09:36)
--- NOTE | 2016-12-25 11:10 | HHI.PR ---
Subjective Remarks Follow-up for CVA, hemiparesis, and LLE DVT s/p treatment for endocarditis, pneumonia, and meningitis. No acute complaints. Objective Vitals Vital Signs Date Time Temp Pulse Resp B/P Pulse Ox O2 Delivery O2 Flow Rate FiO2 12/25/16 08:00 97.5 81 20 105/74 96 12/24/16 20:00 98.0 90 20 126/82 98 I/O 12/24/16 12/24/16 12/24/16 12/25/16 12/25/16 12/25/16 07:00 15:00 23:00 07:00 15:00 23:00 Intake Total 240 ml 1100 ml 360 ml 240 ml Output Total 550 ml 650 ml 150 ml 150 ml 250 ml Balance -310 ml 450 ml 210 ml 90 ml -250 ml Intake Oral 240 ml 1100 ml 360 ml 240 ml Output Urine Total 550 ml 650 ml 150 ml 150 ml 250 ml Objective Remarks GENERAL: Well-nourished, well developed patient no apparent distress. SKIN: Warm and dry. CARDIOVASCULAR: Regular rate and rhythm. RESPIRATORY: No accessory muscle use. CTAB. GASTROINTESTINAL: Abdomen soft, non-tender, nondistended. NEUROLOGICAL: Awake and alert. Normal speech. PSYCHIATRIC: Insight and judgment normal. 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 Penicillin G completed 12/02/16. Blood cultures 11/23 NGTD. Chest x-ray 11/23: lungs symmetrically aerated without evidence of mass, confluent infiltrate or effusion. Mild streaky opacity remains at the left lung base most consistent with scarring. No e/o PNA. UA 11/23 negative WBC improved. CRP stable. Extensive DVT LLE -Continue Xarelto -Had fevers due to DVT but afebrile since 12/05 Right Subacute basal ganglia infarct, with L hemiplegia Aspirin continued Continue PT/OT/ST evaluations. PT indicates need for wheelchair and left ankle and foot orthosis as well as PT at rehabilitation. Trapeze ordered Unspecified personality disorder/Adjustment disorder with depressed mood/ Polysubstance dependence: -Psychiatry consultation appreciated. Continue Clonazepam, Seroquel, and Trazodone. Back pain MRI thoracic and lumbar spine 11/24 with disc protrusions but no evidence of infection. Continue with Tylenol prn Scheduled narcotics will not be ordered. Hypertension -Cardizem 240 mg daily -Monitor and adjust medication as needed Tachycardia Monitor Anemia Mild Hemoglobin stable Diabetes mellitus 2, uncontrolled, with A1c 7.1: Improved. Continue with Accu-Cheks with sliding scale insulin Continue Levemir 5 units every 12 hours. BGLs well controlled currently. Diabetic diet GI Prophylaxis: Protonix DVT prophylaxis: Xarelto Discharge Planning OT and PT recommending rehab. 12/19: Per CM, patient now medicaid approved; following for SSI approval, then will need to find SNF. Kirsten Fournier Dec 25, 2016 11:10
[2016-12-25 20:00] VITALS: BP 133/80; PULSE 90; RESP 20; TEMP 97.1; O2SAT 95
[2016-12-25] MEDS: QUEtiapine FUMARATE 25 MG TAB PO SCH (20:32)
[2016-12-25] MEDS: traZODone HCL 50 MG TAB PO SCH (20:32)
[2016-12-26] MEDS: INSULIN ASPART SUPPLEMENTAL SCALE SQ SCH (07:56)
[2016-12-26 08:00] VITALS: BP 116/66; PULSE 82; RESP 18; TEMP 97.1; O2SAT 97
[2016-12-26] MEDS: clonazePAM 0.5 MG TAB PO SCH ×2 (08:18→20:31)
[2016-12-26] MEDS: RIVAROXABAN 20 MG TAB PO SCH (08:18)
[2016-12-26] MEDS: DOCUSATE SODIUM 100 MG CAP PO SCH ×2 (08:18→20:31)
[2016-12-26] MEDS: ASPIRIN 81 MG CHEW TAB CHEW SCH (08:18)
[2016-12-26] MEDS: THIAMINE HCL 100 MG TAB PO SCH (08:18)
[2016-12-26] MEDS: PANTOPRAZOLE SOD 40 MG DELAYED RELEASE TAB PO SCH (08:18)
[2016-12-26] MEDS: DILTIAZEM-CD 240 MG CAP ER PO SCH (08:19)
[2016-12-26] MEDS: SENNOSIDES 8.6 MG TAB PO SCH (08:19)
[2016-12-26] MEDS: INSULIN DETEMIR 100 UNITS/ML VIAL SQ SCH ×2 (08:19→20:32)
--- NOTE | 2016-12-26 10:11 | HHI.PR ---
Subjective Remarks Follow-up for CVA, hemiparesis, and LLE DVT s/p treatment for endocarditis, pneumonia, and meningitis. No acute complaints. Objective Vitals Vital Signs Date Time Temp Pulse Resp B/P Pulse Ox O2 Delivery O2 Flow Rate FiO2 12/26/16 08:00 97.1 82 18 116/66 97 12/25/16 20:00 97.1 90 20 133/80 95 I/O 12/25/16 12/25/16 12/25/16 12/26/16 12/26/16 12/26/16 07:00 15:00 23:00 07:00 15:00 23:00 Intake Total 240 ml 720 ml 480 ml 220 ml Output Total 150 ml 850 ml 200 ml 600 ml Balance 90 ml -130 ml 280 ml -380 ml Intake Oral 240 ml 720 ml 480 ml 220 ml Output Urine Total 150 ml 850 ml 200 ml 600 ml # Bowel Movements 0 1 0 Objective Remarks GENERAL: Well-nourished, well developed patient no apparent distress. SKIN: Warm and dry. CARDIOVASCULAR: Regular rate and rhythm. RESPIRATORY: No accessory muscle use. CTAB. GASTROINTESTINAL: Abdomen soft, non-tender, nondistended. MUSCULOSKELETAL: L lower leg appears larger than R but no pitting edema. NEUROLOGICAL: Awake and alert. Normal speech. PSYCHIATRIC: Insight and judgment normal. 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 Penicillin G completed 12/02/16. Blood cultures 11/23 NGTD. Chest x-ray 11/23: lungs symmetrically aerated without evidence of mass, confluent infiltrate or effusion. Mild streaky opacity remains at the left lung base most consistent with scarring. No e/o PNA. UA 11/23 negative WBC improved. CRP stable. Extensive DVT LLE -Continue Xarelto -Had fevers due to DVT but afebrile since 12/05 Right Subacute basal ganglia infarct, with L hemiplegia Aspirin continued Continue PT/OT/ST evaluations. PT indicates need for wheelchair and left ankle and foot orthosis as well as PT at rehabilitation. Trapeze ordered Unspecified personality disorder/Adjustment disorder with depressed mood/ Polysubstance dependence: -Psychiatry consultation appreciated. Continue Clonazepam, Seroquel, and Trazodone. Back pain MRI thoracic and lumbar spine 11/24 with disc protrusions but no evidence of infection. Continue with Tylenol prn Scheduled narcotics will not be ordered. Hypertension -Cardizem 240 mg daily -Monitor and adjust medication as needed Tachycardia Monitor Anemia Mild Hemoglobin stable Diabetes mellitus 2, uncontrolled, with A1c 7.1: Improved. Continue with Accu-Cheks with sliding scale insulin Continue Levemir 5 units every 12 hours. BGLs well controlled currently. Diabetic diet GI Prophylaxis: Protonix DVT prophylaxis: Xarelto Discharge Planning OT and PT recommending rehab. 12/19: Per CM, patient now medicaid approved; following for SSI approval, then will need to find SNF. Kirsten Fournier Dec 26, 2016 10:11
[2016-12-26 20:00] VITALS: BP 119/77; PULSE 95; RESP 16; TEMP 98.3; O2SAT 95
[2016-12-26] MEDS: traZODone HCL 50 MG TAB PO SCH (20:31)
[2016-12-26] MEDS: QUEtiapine FUMARATE 25 MG TAB PO SCH (20:31)
[2016-12-26] MEDS: ACETAMINOPHEN 325 MG TAB PO PRN (20:32)
[2016-12-27 08:00] VITALS: BP 123/86; PULSE 75; RESP 18; TEMP 97; O2SAT 96
[2016-12-27] MEDS: INSULIN ASPART SUPPLEMENTAL SCALE SQ SCH (08:00)
[2016-12-27] MEDS: THIAMINE HCL 100 MG TAB PO SCH (09:41)
[2016-12-27] MEDS: DOCUSATE SODIUM 100 MG CAP PO SCH ×2 (09:41→21:32)
[2016-12-27] MEDS: INSULIN DETEMIR 100 UNITS/ML VIAL SQ SCH ×2 (09:41→21:33)
[2016-12-27] MEDS: RIVAROXABAN 20 MG TAB PO SCH (09:42)
[2016-12-27] MEDS: SENNOSIDES 8.6 MG TAB PO SCH (09:42)
[2016-12-27] MEDS: PANTOPRAZOLE SOD 40 MG DELAYED RELEASE TAB PO SCH (09:42)
[2016-12-27] MEDS: clonazePAM 0.5 MG TAB PO SCH ×2 (09:42→21:32)
[2016-12-27] MEDS: ASPIRIN 81 MG CHEW TAB CHEW SCH (09:42)
[2016-12-27] MEDS: DILTIAZEM-CD 240 MG CAP ER PO SCH (09:42)
--- NOTE | 2016-12-27 11:31 | HHI.PR ---
Subjective Remarks Follow-up for CVA, hemiparesis, and LLE DVT s/p treatment for endocarditis, pneumonia, and meningitis. No acute complaints. Objective Vitals Vital Signs Date Time Temp Pulse Resp B/P Pulse Ox O2 Delivery O2 Flow Rate FiO2 12/27/16 08:00 97.0 75 18 123/86 96 12/26/16 21:37 20 12/26/16 20:00 98.3 95 16 119/77 95 I/O 12/26/16 12/26/16 12/26/16 12/27/16 12/27/16 12/27/16 07:00 15:00 23:00 07:00 15:00 23:00 Intake Total 220 ml 360 ml 1080 ml 720 ml Output Total 600 ml 450 ml 900 ml Balance -380 ml 360 ml 630 ml -180 ml Intake Oral 220 ml 360 ml 1080 ml 720 ml Output Urine Total 600 ml 450 ml 900 ml # Voids 4 # Bowel Movements 0 0 0 Objective Remarks GENERAL: Well-nourished, well developed patient no apparent distress. SKIN: Warm and dry. CARDIOVASCULAR: Regular rate and rhythm. RESPIRATORY: No accessory muscle use. CTAB. GASTROINTESTINAL: Abdomen soft, non-tender, nondistended. MUSCULOSKELETAL: L lower leg appears larger than R but no pitting edema. NEUROLOGICAL: Awake and alert. Normal speech. PSYCHIATRIC: Insight and judgment normal. 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 Penicillin G completed 12/02/16. Blood cultures 11/23 NGTD. Chest x-ray 11/23: lungs symmetrically aerated without evidence of mass, confluent infiltrate or effusion. Mild streaky opacity remains at the left lung base most consistent with scarring. No e/o PNA. UA 11/23 negative WBC improved. CRP stable. Extensive DVT LLE -Continue Xarelto -Had fevers due to DVT but afebrile since 12/05 Right Subacute basal ganglia infarct, with L hemiplegia Aspirin continued Continue PT/OT/ST evaluations. PT indicates need for wheelchair and left ankle and foot orthosis as well as PT at rehabilitation. Trapeze ordered Unspecified personality disorder/Adjustment disorder with depressed mood/ Polysubstance dependence: -Psychiatry consultation appreciated. Continue Clonazepam, Seroquel, and Trazodone. Back pain MRI thoracic and lumbar spine 11/24 with disc protrusions but no evidence of infection. Continue with Tylenol prn Scheduled narcotics will not be ordered. Hypertension -Cardizem 240 mg daily -Monitor and adjust medication as needed Tachycardia Monitor Anemia Mild Hemoglobin stable Diabetes mellitus 2, uncontrolled, with A1c 7.1: Improved. Continue with Accu-Cheks with sliding scale insulin Continue Levemir 5 units every 12 hours. BGLs well controlled currently. Diabetic diet GI Prophylaxis: Protonix DVT prophylaxis: Xarelto Discharge Planning OT and PT recommending rehab. 12/19: Per CM, patient now medicaid approved; following for SSI approval, then will need to find SNF. Kirsten Fournier Dec 27, 2016 11:31
[2016-12-27] MEDS: ACETAMINOPHEN 325 MG TAB PO PRN (18:29)
[2016-12-27 19:15] VITALS: BP_SYST 128; BP_SYST 156; BP_DIAS 101; BP_DIAS 82; PULSE 83; PULSE 93; RESP 16; RESP 18; TEMP 97.8; O2SAT 99
[2016-12-27] MEDS: QUEtiapine FUMARATE 25 MG TAB PO SCH (21:32)
[2016-12-27] MEDS: traZODone HCL 50 MG TAB PO SCH (21:32)
[2016-12-27 22:08] VITALS: BP 140/90; PULSE 60; RESP 16
[2016-12-28 08:00] VITALS: BP 133/69; PULSE 94; RESP 19; TEMP 98; O2SAT 92
[2016-12-28] MEDS: INSULIN ASPART SUPPLEMENTAL SCALE SQ SCH (08:00)
[2016-12-28] MEDS: THIAMINE HCL 100 MG TAB PO SCH (10:06)
[2016-12-28] MEDS: PANTOPRAZOLE SOD 40 MG DELAYED RELEASE TAB PO SCH (10:06)
[2016-12-28] MEDS: RIVAROXABAN 20 MG TAB PO SCH (10:06)
[2016-12-28] MEDS: INSULIN DETEMIR 100 UNITS/ML VIAL SQ SCH ×2 (10:06→20:52)
[2016-12-28] MEDS: DOCUSATE SODIUM 100 MG CAP PO SCH ×2 (10:06→20:48)
[2016-12-28] MEDS: ASPIRIN 81 MG CHEW TAB CHEW SCH (10:06)
[2016-12-28] MEDS: SENNOSIDES 8.6 MG TAB PO SCH (10:07)
[2016-12-28] MEDS: clonazePAM 0.5 MG TAB PO SCH ×2 (10:07→20:48)
[2016-12-28] MEDS: DILTIAZEM-CD 240 MG CAP ER PO SCH (10:07)
--- NOTE | 2016-12-28 11:57 | HHI.PR ---
Subjective Remarks Follow-up for CVA, hemiparesis, and LLE DVT s/p treatment for endocarditis, pneumonia, and meningitis. Patient is upset regarding an interaction with the nurse last night stating he was accused of stealing medications and he desires to be discharged. Incident has been reported to the charge nurse. Objective Vitals Vital Signs Date Time Temp Pulse Resp B/P Pulse Ox O2 Delivery O2 Flow Rate FiO2 12/28/16 08:00 98.0 94 19 133/69 92 12/27/16 19:29 16 12/27/16 19:15 93 18 128/82 I/O 12/27/16 12/27/16 12/27/16 12/28/16 12/28/16 12/28/16 07:00 15:00 23:00 07:00 15:00 23:00 Intake Total 720 ml 1500 ml Output Total 900 ml 1450 ml Balance -180 ml 50 ml Intake Oral 720 ml 1500 ml Output Urine Total 900 ml 1450 ml # Bowel Movements 0 1 Objective Remarks GENERAL: Well-nourished, well developed patient no apparent distress. SKIN: Warm and dry. Surgical scar over abdomen. CARDIOVASCULAR: Regular rate and rhythm. RESPIRATORY: No accessory muscle use. CTAB. GASTROINTESTINAL: Abdomen soft, non-tender, nondistended. MUSCULOSKELETAL: Weak count room clerk strength L hand. L lower leg appears larger than R but no pitting edema. NEUROLOGICAL: Awake and alert. Normal speech. PSYCHIATRIC: Insight and judgment normal. 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 Penicillin G completed 12/02/16. Blood cultures 11/23 NGTD. Chest x-ray 11/23: lungs symmetrically aerated without evidence of mass, confluent infiltrate or effusion. Mild streaky opacity remains at the left lung base most consistent with scarring. No e/o PNA. UA 11/23 negative WBC improved. CRP stable. Extensive DVT LLE -Continue Xarelto -Had fevers due to DVT but afebrile since 12/05 Right Subacute basal ganglia infarct, with L hemiplegia Aspirin continued Continue PT/OT/ST evaluations. PT indicates need for wheelchair and left ankle and foot orthosis as well as PT at rehabilitation. Trapeze ordered Unspecified personality disorder/Adjustment disorder with depressed mood/ Polysubstance dependence: -Psychiatry consultation appreciated. Continue Clonazepam, Seroquel, and Trazodone. Back pain MRI thoracic and lumbar spine 11/24 with disc protrusions but no evidence of infection. Continue with Tylenol prn Scheduled narcotics will not be ordered. Hypertension -Cardizem 240 mg daily -Monitor and adjust medication as needed Tachycardia Monitor Anemia Mild Hemoglobin stable Diabetes mellitus 2, uncontrolled, with A1c 7.1: Improved. Continue with Accu-Cheks with sliding scale insulin Continue Levemir 5 units every 12 hours. BGLs well controlled currently. Diabetic diet GI Prophylaxis: Protonix DVT prophylaxis: Xarelto Discharge Planning OT and PT recommending rehab. 12/19: Per CM, patient now medicaid approved; following for SSI approval, then will need to find SNF. Patient still with poor balance requiring moderate assistance to stand and transfer from wheelchair. Kirsten Fournier Dec 28, 2016 11:57
[2016-12-28 19:15] VITALS: BP 146/85; PULSE 84; RESP 18; TEMP 99.1; O2SAT 95
[2016-12-28] MEDS: traZODone HCL 50 MG TAB PO SCH (20:48)
[2016-12-28] MEDS: QUEtiapine FUMARATE 25 MG TAB PO SCH (20:49)
[2016-12-29 08:00] VITALS: BP 124/80; PULSE 76; RESP 20; TEMP 99.1; O2SAT 98
[2016-12-29] MEDS: INSULIN ASPART SUPPLEMENTAL SCALE SQ SCH (08:00)
[2016-12-29] MEDS: clonazePAM 0.5 MG TAB PO SCH ×2 (08:06→20:53)
[2016-12-29] MEDS: SENNOSIDES 8.6 MG TAB PO SCH (08:06)
[2016-12-29] MEDS: RIVAROXABAN 20 MG TAB PO SCH (08:06)
[2016-12-29] MEDS: DOCUSATE SODIUM 100 MG CAP PO SCH ×2 (08:06→20:52)
[2016-12-29] MEDS: THIAMINE HCL 100 MG TAB PO SCH (08:06)
[2016-12-29] MEDS: PANTOPRAZOLE SOD 40 MG DELAYED RELEASE TAB PO SCH (08:06)
[2016-12-29] MEDS: DILTIAZEM-CD 240 MG CAP ER PO SCH (08:06)
[2016-12-29] MEDS: ASPIRIN 81 MG CHEW TAB CHEW SCH (08:06)
[2016-12-29] MEDS: INSULIN DETEMIR 100 UNITS/ML VIAL SQ SCH ×2 (08:06→20:53)
--- NOTE | 2016-12-29 10:35 | HHI.PR ---
Subjective Remarks Follow-up for CVA, hemiparesis, and LLE DVT s/p treatment for endocarditis, pneumonia, and meningitis. No acute issues. Objective Vitals Vital Signs Date Time Temp Pulse Resp B/P Pulse Ox O2 Delivery O2 Flow Rate FiO2 12/29/16 08:00 99.1 76 20 124/80 98 12/28/16 19:15 99.1 84 18 146/85 95 I/O 12/28/16 12/28/16 12/28/16 12/29/16 12/29/16 12/29/16 07:00 15:00 23:00 07:00 15:00 23:00 Intake Total 1000 ml Output Total 1100 ml 650 ml 650 ml 400 ml Balance -100 ml -650 ml -650 ml -400 ml Intake Oral 1000 ml Output Urine Total 1100 ml 650 ml 650 ml 400 ml # Bowel Movements 0 1 Objective Remarks GENERAL: Well-nourished, well developed patient no apparent distress. SKIN: Warm and dry. CARDIOVASCULAR: Regular rate and rhythm. RESPIRATORY: No accessory muscle use. CTAB. GASTROINTESTINAL: Abdomen soft, non-tender, nondistended. MUSCULOSKELETAL: L lower leg appears larger than R but no pitting edema. NEUROLOGICAL: Awake and alert. Normal speech. PSYCHIATRIC: Insight and judgment normal. 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 Penicillin G completed 12/02/16. Blood cultures 11/23 NGTD. Chest x-ray 11/23: lungs symmetrically aerated without evidence of mass, confluent infiltrate or effusion. Mild streaky opacity remains at the left lung base most consistent with scarring. No e/o PNA. UA 11/23 negative WBC improved. CRP stable. Extensive DVT LLE -Continue Xarelto -Had fevers due to DVT but afebrile since 12/05 Right Subacute basal ganglia infarct, with L hemiplegia Aspirin continued Continue PT/OT/ST evaluations. PT indicates need for wheelchair and left ankle and foot orthosis as well as PT at rehabilitation. Trapeze ordered Unspecified personality disorder/Adjustment disorder with depressed mood/ Polysubstance dependence: -Psychiatry consultation appreciated. Continue Clonazepam, Seroquel, and Trazodone. Back pain MRI thoracic and lumbar spine 11/24 with disc protrusions but no evidence of infection. Continue with Tylenol prn Scheduled narcotics will not be ordered. Hypertension -Cardizem 240 mg daily -Monitor and adjust medication as needed Tachycardia Monitor Anemia Mild Hemoglobin stable Diabetes mellitus 2, uncontrolled, with A1c 7.1: Improved. Continue with Accu-Cheks with sliding scale insulin Continue Levemir 5 units every 12 hours. BGLs well controlled currently. Diabetic diet GI Prophylaxis: Protonix DVT prophylaxis: Xarelto Discharge Planning OT and PT recommending rehab. Patient still with poor balance per PT. 12/29: Per CM, patient now medicaid approved; SSI pending, then will need to find SNF. Kirsten Fournier Dec 29, 2016 10:35
[2016-12-29 20:00] VITALS: BP 127/89; PULSE 81; RESP 20; TEMP 98; O2SAT 97
[2016-12-29] MEDS: traZODone HCL 50 MG TAB PO SCH (20:53)
[2016-12-29] MEDS: QUEtiapine FUMARATE 25 MG TAB PO SCH (20:53)
[2016-12-29] MEDS: ACETAMINOPHEN 325 MG TAB PO PRN (22:11)
[2016-12-30] MEDS: clonazePAM 0.5 MG TAB PO SCH ×2 (07:43→20:22)
[2016-12-30] MEDS: SENNOSIDES 8.6 MG TAB PO SCH (07:43)
[2016-12-30] MEDS: DILTIAZEM-CD 240 MG CAP ER PO SCH (07:43)
[2016-12-30] MEDS: ASPIRIN 81 MG CHEW TAB CHEW SCH (07:44)
[2016-12-30] MEDS: PANTOPRAZOLE SOD 40 MG DELAYED RELEASE TAB PO SCH (07:44)
[2016-12-30] MEDS: DOCUSATE SODIUM 100 MG CAP PO SCH ×2 (07:44→20:22)
[2016-12-30] MEDS: INSULIN DETEMIR 100 UNITS/ML VIAL SQ SCH ×2 (07:44→20:22)
[2016-12-30] MEDS: RIVAROXABAN 20 MG TAB PO SCH (07:44)
[2016-12-30] MEDS: THIAMINE HCL 100 MG TAB PO SCH (07:44)
[2016-12-30] MEDS: INSULIN ASPART SUPPLEMENTAL SCALE SQ SCH (07:44)
[2016-12-30 08:00] VITALS: BP 126/91; PULSE 72; RESP 20; TEMP 95.5; O2SAT 97
--- NOTE | 2016-12-30 11:23 | HHI.PR ---
Subjective Remarks Patient seen and examined today in follow up on CVA, left hemiparesis. Patient denies any new complaints today. No change in clinical status. Continue work with physical therapy until clinically stable be discharged home Objective Vitals Vital Signs Date Time Temp Pulse Resp B/P Pulse Ox O2 Delivery O2 Flow Rate FiO2 12/30/16 08:00 95.5 72 20 126/91 97 12/29/16 20:00 98.0 81 20 127/89 97 I/O 12/29/16 12/29/16 12/29/16 12/30/16 12/30/16 12/30/16 07:00 15:00 23:00 07:00 15:00 23:00 Intake Total 680 ml 480 ml 100 ml Output Total 650 ml 1000 ml 500 ml Balance -650 ml -320 ml -20 ml 100 ml Intake Oral 680 ml 480 ml 100 ml Output Urine Total 650 ml 1000 ml 500 ml # Bowel Movements 0 0 Objective Remarks GENERAL: This is a well-nourished, well-developed patient, in no apparent distress. GENERAL: Well-developed, well-nourished, in no acute distress. alert and orientated HEENT: Head is normocephalic without any lesions or masses noted. Patient does have left-sided facial droop. Eyes: Extraocular muscles are intact. Conjunctivae were clear. NECK: Supple without any masses. Trachea midline no deviation. No JVD, CARDIAC: Regular rhythm, regular rate. S1/S2 are heard. No murmurs gallops or rubs. LUNGS: Clear to auscultation bilaterally. No wheeze, rhonchi or rales. No use of accessory muscles on inspiration or expiration. ABDOMEN: Soft, nontender. Nondistended. Bowel sounds heard in all 4 quadrants. No organomegaly or masses. Negative rebound, negative guarding EXTREMITIES: No edema, pulses are equal bilaterally. No cyanosis or clubbing NEUROLOGY: Mood and affect appear appropriate. Patient able to flex and extend left ankle. Patient is able to move his left upper extremity, he is moving his fingers. Right upper and lower extremity with 5/5 strength in 2+ deep tendon reflexes Urinary Catheter: No Vascular Central Line Catheter: No A/P Assessment and Plan Right Subacute basal ganglia infarct, with L hemiplegia Aspirin continued Continue PT/OT/ST evaluations --Xray left shoulder which did not indicate any acute abnormality or any separations DVT of the left lower extremity Patient on Xarelto Strep pneumonia meningitis, endocarditis, sepsis: Treated Infectious disease will need to be reconsulted since the patient left the hospital and patient with low-grade fever Completed Penicillin G 24 million units, end date 12/02/16 Blood cultures negative for 5 days, urinalysis clear, Chest x-rays shows mild streaky opacity in the left lung base consistent with scarring Hypertension, blood pressure stable Cardizem 240 mg daily Diabetes mellitus 2, control improved, Recent A1c 7.1 Accu-Cheks changed to daily with sliding scale insulin Levemir 5 units every 12 hours Adjustment disorder with depressed mood Psychiatry has evaluated the patient and recommended medication changes. Trazodone 50 mg at bedtime Seroquel 50 mg at bedtime Klonopin 0.5 mg every 12 hours GI Prophylaxis: Protonix. DVT prophylaxis: Xarelto Discharge Planning Case management for discharge planning. Patient has completed antibiotics at this time. Patient still with left hemiplegia. Patient will likely stay in the hospital until able to ambulate home as indicated patient now has Medicaid, however still waiting for social security to be approved for possible rehabilitation placement Josh Taylor Dec 30, 2016 11:23
[2016-12-30 20:00] VITALS: BP 118/74; PULSE 97; RESP 20; TEMP 100.2; O2SAT 96
[2016-12-30] MEDS: QUEtiapine FUMARATE 25 MG TAB PO SCH (20:22)
[2016-12-30] MEDS: traZODone HCL 50 MG TAB PO SCH (20:22)
[2016-12-30] MEDS: ACETAMINOPHEN 325 MG TAB PO PRN (20:29)
[2016-12-31 08:00] VITALS: BP 123/87; PULSE 75; RESP 20; TEMP 96.5; O2SAT 95
[2016-12-31] MEDS: INSULIN ASPART SUPPLEMENTAL SCALE SQ SCH (08:00)
[2016-12-31] MEDS: SENNOSIDES 8.6 MG TAB PO SCH (08:06)
[2016-12-31] MEDS: clonazePAM 0.5 MG TAB PO SCH ×2 (08:06→21:35)
[2016-12-31] MEDS: DILTIAZEM-CD 240 MG CAP ER PO SCH (08:06)
[2016-12-31] MEDS: PANTOPRAZOLE SOD 40 MG DELAYED RELEASE TAB PO SCH (08:06)
[2016-12-31] MEDS: INSULIN DETEMIR 100 UNITS/ML VIAL SQ SCH ×2 (08:06→21:35)
[2016-12-31] MEDS: THIAMINE HCL 100 MG TAB PO SCH (08:06)
[2016-12-31] MEDS: DOCUSATE SODIUM 100 MG CAP PO SCH ×2 (08:06→21:00)
[2016-12-31] MEDS: ASPIRIN 81 MG CHEW TAB CHEW SCH (08:06)
[2016-12-31] MEDS: RIVAROXABAN 20 MG TAB PO SCH (08:06)
--- NOTE | 2016-12-31 10:14 | HHI.PR ---
Subjective Remarks Patient seen and examined today in follow-up for CVA and hemiparesis. Patient complaining of multiple skin issues, itchy rash on his back, dry flaky skin on his feet. Patient got his first shower yesterday and a long time. Notify him he needs keep moisturized and bathe regularly. Objective Vitals Vital Signs Date Time Temp Pulse Resp B/P Pulse Ox O2 Delivery O2 Flow Rate FiO2 12/31/16 08:00 96.5 75 20 123/87 95 12/30/16 20:00 100.2 97 20 118/74 96 I/O 12/30/16 12/30/16 12/30/16 12/31/16 12/31/16 12/31/16 07:00 15:00 23:00 07:00 15:00 23:00 Intake Total 790 ml 480 ml 240 ml Output Total 900 ml 350 ml 850 ml 600 ml Balance -110 ml 130 ml -610 ml -600 ml Intake Oral 790 ml 480 ml 240 ml Output Urine Total 900 ml 350 ml 850 ml 600 ml # Bowel Movements 1 0 0 Objective Remarks GENERAL: This is a well-nourished, well-developed patient, in no apparent distress. GENERAL: Well-developed, well-nourished, in no acute distress. alert and orientated HEENT: Head is normocephalic without any lesions or masses noted. Patient does have left-sided facial droop. Eyes: Extraocular muscles are intact. Conjunctivae were clear. NECK: Supple without any masses. Trachea midline no deviation. No JVD, CARDIAC: Regular rhythm, regular rate. S1/S2 are heard. No murmurs gallops or rubs. LUNGS: Clear to auscultation bilaterally. No wheeze, rhonchi or rales. No use of accessory muscles on inspiration or expiration. ABDOMEN: Soft, nontender. Nondistended. Bowel sounds heard in all 4 quadrants. No organomegaly or masses. Negative rebound, negative guarding EXTREMITIES: No edema, pulses are equal bilaterally. No cyanosis or clubbing NEUROLOGY: Mood and affect appear appropriate. Patient able to flex and extend left ankle. Patient is able to move his left upper extremity, he is moving his fingers. Right upper and lower extremity with 5/5 strength in 2+ deep tendon reflexes Urinary Catheter: No Vascular Central Line Catheter: No A/P Assessment and Plan Right Subacute basal ganglia infarct, with L hemiplegia Aspirin continued Continue PT/OT/ST evaluations --Xray left shoulder which did not indicate any acute abnormality or any separations DVT of the left lower extremity Patient on Xarelto Strep pneumonia meningitis, endocarditis, sepsis: Treated Infectious disease will need to be reconsulted since the patient left the hospital and patient with low-grade fever Completed Penicillin G 24 million units, end date 12/02/16 Blood cultures negative for 5 days, urinalysis clear, Chest x-rays shows mild streaky opacity in the left lung base consistent with scarring Hypertension, blood pressure stable Cardizem 240 mg daily Diabetes mellitus 2, stable Recent A1c 7.1 Accu-Cheks changed to daily with sliding scale insulin Levemir 5 units every 12 hours Adjustment disorder with depressed mood Psychiatry has evaluated the patient and recommended medication changes. Trazodone 50 mg at bedtime Seroquel 50 mg at bedtime Klonopin 0.5 mg every 12 hours GI Prophylaxis: Protonix. DVT prophylaxis: Xarelto Discharge Planning Case management for discharge planning. Patient has completed antibiotics at this time. Patient still with left hemiplegia. Patient will likely stay in the hospital until able to ambulate home as indicated patient now has Medicaid, however still waiting for social security to be approved for possible rehabilitation placement Josh Taylor Dec 31, 2016 10:14
[2016-12-31 20:00] VITALS: BP 134/85; PULSE 85; RESP 20; TEMP 96.8; O2SAT 96
[2016-12-31] MEDS: QUEtiapine FUMARATE 25 MG TAB PO SCH (21:35)
[2016-12-31] MEDS: traZODone HCL 50 MG TAB PO SCH (21:35)
[2017-01-01] MEDS: INSULIN ASPART SUPPLEMENTAL SCALE SQ SCH (08:00)
[2017-01-01] MEDS: DILTIAZEM-CD 240 MG CAP ER PO SCH (08:41)
[2017-01-01] MEDS: THIAMINE HCL 100 MG TAB PO SCH (08:41)
[2017-01-01] MEDS: PANTOPRAZOLE SOD 40 MG DELAYED RELEASE TAB PO SCH (08:41)
[2017-01-01] MEDS: clonazePAM 0.5 MG TAB PO SCH ×2 (08:41→21:31)
[2017-01-01] MEDS: DOCUSATE SODIUM 100 MG CAP PO SCH ×2 (08:41→21:31)
[2017-01-01] MEDS: SENNOSIDES 8.6 MG TAB PO SCH (08:41)
[2017-01-01] MEDS: ASPIRIN 81 MG CHEW TAB CHEW SCH (08:41)
[2017-01-01] MEDS: INSULIN DETEMIR 100 UNITS/ML VIAL SQ SCH ×2 (08:41→21:31)
[2017-01-01] MEDS: RIVAROXABAN 20 MG TAB PO SCH (08:41)
[2017-01-01 09:39] VITALS: BP 115/89; PULSE 77; RESP 16; TEMP 98.3; O2SAT 94
--- NOTE | 2017-01-01 11:07 | HHI.PR ---
Subjective Remarks Patient seen and examined today for follow-up on CVA and hemiparesis. Patient slowly progressing. Patient seen in the hallway in wheelchair and standing with physical therapy. Patient denies any new complaints. Objective Vitals Vital Signs Date Time Temp Pulse Resp B/P Pulse Ox O2 Delivery O2 Flow Rate FiO2 01/01/17 09:39 98.3 77 16 115/89 94 12/31/16 20:00 96.8 85 20 134/85 96 I/O 12/31/16 12/31/16 12/31/16 01/01/17 01/01/17 01/01/17 07:00 15:00 23:00 07:00 15:00 23:00 Intake Total 240 ml 960 ml 120 ml 120 ml Output Total 850 ml 1300 ml 475 ml 1325 ml Balance -610 ml -340 ml -355 ml -1205 ml Intake Oral 240 ml 960 ml 120 ml 120 ml Output Urine Total 850 ml 1300 ml 475 ml 1325 ml # Voids 2 # Bowel Movements 0 0 0 0 Objective Remarks GENERAL: This is a well-nourished, well-developed patient, in no apparent distress. GENERAL: Well-developed, well-nourished, in no acute distress. alert and orientated HEENT: Head is normocephalic without any lesions or masses noted. Patient does have left-sided facial droop. Eyes: Extraocular muscles are intact. Conjunctivae were clear. NECK: Supple without any masses. Trachea midline no deviation. No JVD, CARDIAC: Regular rhythm, regular rate. S1/S2 are heard. No murmurs gallops or rubs. LUNGS: Clear to auscultation bilaterally. No wheeze, rhonchi or rales. No use of accessory muscles on inspiration or expiration. ABDOMEN: Soft, nontender. Nondistended. Bowel sounds heard in all 4 quadrants. No organomegaly or masses. Negative rebound, negative guarding EXTREMITIES: No edema, pulses are equal bilaterally. No cyanosis or clubbing NEUROLOGY: Mood and affect appear appropriate. Patient able to flex and extend left ankle. Patient is able to move his left upper extremity, he is moving his fingers. Right upper and lower extremity with 5/5 strength in 2+ deep tendon reflexes Urinary Catheter: No Vascular Central Line Catheter: No A/P Assessment and Plan Right Subacute basal ganglia infarct, with L hemiplegia Aspirin continued Continue PT/OT/ST evaluations --Xray left shoulder which did not indicate any acute abnormality or any separations DVT of the left lower extremity Patient on Xarelto Strep pneumonia meningitis, endocarditis, sepsis: Treated Infectious disease will need to be reconsulted since the patient left the hospital and patient with low-grade fever Completed Penicillin G 24 million units, end date 12/02/16 Blood cultures negative for 5 days, urinalysis clear, Chest x-rays shows mild streaky opacity in the left lung base consistent with scarring Hypertension, blood pressure stable Cardizem 240 mg daily Diabetes mellitus 2, stable Recent A1c 7.1 Accu-Cheks changed to daily with sliding scale insulin Levemir 5 units every 12 hours Adjustment disorder with depressed mood Psychiatry has evaluated the patient and recommended medication changes. Trazodone 50 mg at bedtime Seroquel 50 mg at bedtime Klonopin 0.5 mg every 12 hours GI Prophylaxis: Protonix. DVT prophylaxis: Xarelto Discharge Planning Case management for discharge planning. Patient has completed antibiotics at this time. Patient still with left hemiplegia. Patient will likely stay in the hospital until able to ambulate home as indicated patient now has Medicaid, however still waiting for social security to be approved for possible rehabilitation placement Josh Taylor Jan 01, 2017 11:07
[2017-01-01 20:00] VITALS: BP 126/84; PULSE 85; RESP 20; TEMP 98.7; O2SAT 96
[2017-01-01] MEDS: QUEtiapine FUMARATE 25 MG TAB PO SCH (21:31)
[2017-01-01] MEDS: traZODone HCL 50 MG TAB PO SCH (21:31)
[2017-01-02 08:00] VITALS: BP 117/88; PULSE 81; RESP 18; TEMP 98.2; O2SAT 96
[2017-01-02] MEDS: INSULIN ASPART SUPPLEMENTAL SCALE SQ SCH ×2 (08:00→16:00)
[2017-01-02] MEDS: INSULIN DETEMIR 100 UNITS/ML VIAL SQ SCH (09:22)
[2017-01-02] MEDS: PANTOPRAZOLE SOD 40 MG DELAYED RELEASE TAB PO SCH (09:23)
[2017-01-02] MEDS: RIVAROXABAN 20 MG TAB PO SCH (09:23)
[2017-01-02] MEDS: DOCUSATE SODIUM 100 MG CAP PO SCH ×2 (09:23→21:55)
[2017-01-02] MEDS: SENNOSIDES 8.6 MG TAB PO SCH (09:23)
[2017-01-02] MEDS: DILTIAZEM-CD 240 MG CAP ER PO SCH (09:23)
[2017-01-02] MEDS: THIAMINE HCL 100 MG TAB PO SCH (09:23)
[2017-01-02] MEDS: ASPIRIN 81 MG CHEW TAB CHEW SCH (09:23)
[2017-01-02] MEDS: clonazePAM 0.5 MG TAB PO SCH ×2 (09:23→21:55)
--- NOTE | 2017-01-02 10:32 | HHI.PR ---
Subjective Remarks Patient seen and examined today follow-up on CVA and hemiparesis. Patient denies any new complaints today. He is asking about getting wheelchair for him upon discharge. Objective Vitals Vital Signs Date Time Temp Pulse Resp B/P Pulse Ox O2 Delivery O2 Flow Rate FiO2 01/02/17 08:00 98.2 81 18 117/88 96 01/01/17 20:00 98.7 85 20 126/84 96 I/O 01/01/17 01/01/17 01/01/17 01/02/17 01/02/17 01/02/17 07:00 15:00 23:00 07:00 15:00 23:00 Intake Total 120 ml 100 ml 1680 ml 120 ml Output Total 1325 ml 500 ml 300 ml Balance -1205 ml 100 ml 1180 ml -180 ml Intake Oral 120 ml 100 ml 1680 ml 120 ml Output Urine Total 1325 ml 500 ml 300 ml # Voids 4 1 # Bowel Movements 0 1 0 Objective Remarks GENERAL: This is a well-nourished, well-developed patient, in no apparent distress. GENERAL: Well-developed, well-nourished, in no acute distress. alert and orientated HEENT: Head is normocephalic without any lesions or masses noted. Patient does have left-sided facial droop. Eyes: Extraocular muscles are intact. Conjunctivae were clear. NECK: Supple without any masses. Trachea midline no deviation. No JVD, CARDIAC: Regular rhythm, regular rate. S1/S2 are heard. No murmurs gallops or rubs. LUNGS: Clear to auscultation bilaterally. No wheeze, rhonchi or rales. No use of accessory muscles on inspiration or expiration. ABDOMEN: Soft, nontender. Nondistended. Bowel sounds heard in all 4 quadrants. No organomegaly or masses. Negative rebound, negative guarding EXTREMITIES: No edema, pulses are equal bilaterally. No cyanosis or clubbing NEUROLOGY: Mood and affect appear appropriate. Patient able to flex and extend left ankle. Patient is able to move his left upper extremity, he is moving his fingers. Right upper and lower extremity with 5/5 strength in 2+ deep tendon reflexes Urinary Catheter: No Vascular Central Line Catheter: No A/P Assessment and Plan Right Subacute basal ganglia infarct, with L hemiplegia Aspirin continued Continue PT/OT/ST evaluations --Xray left shoulder which did not indicate any acute abnormality or any separations DVT of the left lower extremity Patient on Xarelto Strep pneumonia meningitis, endocarditis, sepsis: Treated Infectious disease will need to be reconsulted since the patient left the hospital and patient with low-grade fever Completed Penicillin G 24 million units, end date 12/02/16 Blood cultures negative for 5 days, urinalysis clear, Chest x-rays shows mild streaky opacity in the left lung base consistent with scarring Hypertension, blood pressure stable Cardizem 240 mg daily Diabetes mellitus 2, stable Recent A1c 7.1 Accu-Cheks changed to daily with sliding scale insulin Start metformin 850 mg twice daily Discontinued Levemir 5 units every 12 hours Adjustment disorder with depressed mood Psychiatry has evaluated the patient and recommended medication changes. Trazodone 50 mg at bedtime Seroquel 50 mg at bedtime Klonopin 0.5 mg every 12 hours GI Prophylaxis: Protonix. DVT prophylaxis: Xarelto Discharge Planning Case management for discharge planning. Patient has completed antibiotics at this time. Patient still with left hemiplegia. Patient will likely stay in the hospital until able to ambulate home as indicated patient now has Medicaid, however still waiting for social security to be approved for possible rehabilitation placement Josh Taylor Jan 02, 2017 10:32
[2017-01-02] MEDS: metFORMIN HCL 850 MG TAB PO SCH (18:02)
[2017-01-02 20:00] VITALS: BP 113/67; PULSE 82; RESP 21; TEMP 98.3; O2SAT 96
[2017-01-02] MEDS: QUEtiapine FUMARATE 25 MG TAB PO SCH (21:55)
[2017-01-02] MEDS: traZODone HCL 50 MG TAB PO SCH (21:55)
[2017-01-03] MEDS: INSULIN ASPART SUPPLEMENTAL SCALE SQ SCH ×2 (06:58→16:00)
[2017-01-03 08:00] VITALS: BP 129/79; PULSE 79; RESP 20; TEMP 98; O2SAT 97
[2017-01-03] MEDS: SENNOSIDES 8.6 MG TAB PO SCH (09:28)
[2017-01-03] MEDS: PANTOPRAZOLE SOD 40 MG DELAYED RELEASE TAB PO SCH (09:28)
[2017-01-03] MEDS: THIAMINE HCL 100 MG TAB PO SCH (09:28)
[2017-01-03] MEDS: clonazePAM 0.5 MG TAB PO SCH ×2 (09:28→21:07)
[2017-01-03] MEDS: metFORMIN HCL 850 MG TAB PO SCH ×2 (09:28→17:44)
[2017-01-03] MEDS: RIVAROXABAN 20 MG TAB PO SCH (09:28)
[2017-01-03] MEDS: ASPIRIN 81 MG CHEW TAB CHEW SCH (09:29)
[2017-01-03] MEDS: DOCUSATE SODIUM 100 MG CAP PO SCH ×2 (09:29→21:07)
[2017-01-03] MEDS: DILTIAZEM-CD 240 MG CAP ER PO SCH (09:29)
--- NOTE | 2017-01-03 12:37 | HHI.PR ---
Subjective Remarks Patient seen and examined today in follow-up of CVA and hemiplegia. Patient denies any new complaints. No change in clinical status. Objective Vitals Vital Signs Date Time Temp Pulse Resp B/P Pulse Ox O2 Delivery O2 Flow Rate FiO2 01/03/17 08:00 98.0 79 20 129/79 97 01/02/17 20:00 98.3 82 21 113/67 96 I/O 01/02/17 01/02/17 01/02/17 01/03/17 01/03/17 01/03/17 07:00 15:00 23:00 07:00 15:00 23:00 Intake Total 120 ml 840 ml 360 ml 480 ml Output Total 300 ml 1000 ml 700 ml 300 ml Balance -180 ml 840 ml -640 ml -220 ml -300 ml Intake Oral 120 ml 840 ml 360 ml 480 ml Output Urine Total 300 ml 1000 ml 700 ml 300 ml # Voids 1 4 # Bowel Movements 0 2 Objective Remarks GENERAL: This is a well-nourished, well-developed patient, in no apparent distress. GENERAL: Well-developed, well-nourished, in no acute distress. alert and orientated HEENT: Head is normocephalic without any lesions or masses noted. Patient does have left-sided facial droop. Eyes: Extraocular muscles are intact. Conjunctivae were clear. NECK: Supple without any masses. Trachea midline no deviation. No JVD, CARDIAC: Regular rhythm, regular rate. S1/S2 are heard. No murmurs gallops or rubs. LUNGS: Clear to auscultation bilaterally. No wheeze, rhonchi or rales. No use of accessory muscles on inspiration or expiration. ABDOMEN: Soft, nontender. Nondistended. Bowel sounds heard in all 4 quadrants. No organomegaly or masses. Negative rebound, negative guarding EXTREMITIES: No edema, pulses are equal bilaterally. No cyanosis or clubbing NEUROLOGY: Mood and affect appear appropriate. Patient able to flex and extend left ankle. Patient is able to move his left upper extremity, he is moving his fingers. Right upper and lower extremity with 5/5 strength in 2+ deep tendon reflexes Urinary Catheter: No Vascular Central Line Catheter: No A/P Assessment and Plan Right Subacute basal ganglia infarct, with L hemiplegia Aspirin continued Continue PT/OT/ST evaluations --Xray left shoulder which did not indicate any acute abnormality or any separations DVT of the left lower extremity Patient on Xarelto Strep pneumonia meningitis, endocarditis, sepsis: Treated Infectious disease will need to be reconsulted since the patient left the hospital and patient with low-grade fever Completed Penicillin G 24 million units, end date 12/02/16 Blood cultures negative for 5 days, urinalysis clear, Chest x-rays shows mild streaky opacity in the left lung base consistent with scarring Hypertension, blood pressure stable Cardizem 240 mg daily Diabetes mellitus 2, stable Recent A1c 7.1 Accu-Cheks changed to daily with sliding scale insulin twice daily Continue metformin 850 mg twice daily Adjustment disorder with depressed mood Psychiatry has evaluated the patient and recommended medication changes. Trazodone 50 mg at bedtime Seroquel 50 mg at bedtime Klonopin 0.5 mg every 12 hours GI Prophylaxis: Protonix. DVT prophylaxis: Xarelto Discharge Planning Case management for discharge planning. Patient has completed antibiotics at this time. Patient still with left hemiplegia. Patient will likely stay in the hospital until able to ambulate home as indicated patient now has Medicaid, however still waiting for social security to be approved for possible rehabilitation placement Josh Taylor Jan 03, 2017 12:37
[2017-01-03 20:00] VITALS: BP 113/79; PULSE 87; RESP 20; TEMP 98.8; O2SAT 95
[2017-01-03] MEDS: QUEtiapine FUMARATE 25 MG TAB PO SCH (21:08)
[2017-01-03] MEDS: traZODone HCL 50 MG TAB PO SCH (22:07)
[2017-01-04] MEDS: INSULIN ASPART SUPPLEMENTAL SCALE SQ SCH ×2 (06:15→16:00)
[2017-01-04 08:00] VITALS: BP 130/78; PULSE 85; RESP 20; TEMP 98.4; O2SAT 94
[2017-01-04] MEDS: PANTOPRAZOLE SOD 40 MG DELAYED RELEASE TAB PO SCH (09:13)
[2017-01-04] MEDS: DOCUSATE SODIUM 100 MG CAP PO SCH ×2 (09:13→21:03)
[2017-01-04] MEDS: SENNOSIDES 8.6 MG TAB PO SCH (09:14)
[2017-01-04] MEDS: clonazePAM 0.5 MG TAB PO SCH ×2 (09:14→21:03)
[2017-01-04] MEDS: RIVAROXABAN 20 MG TAB PO SCH (09:14)
[2017-01-04] MEDS: ASPIRIN 81 MG CHEW TAB CHEW SCH (09:14)
[2017-01-04] MEDS: metFORMIN HCL 850 MG TAB PO SCH ×2 (09:14→17:52)
[2017-01-04] MEDS: DILTIAZEM-CD 240 MG CAP ER PO SCH (09:14)
[2017-01-04] MEDS: THIAMINE HCL 100 MG TAB PO SCH (09:18)
--- NOTE | 2017-01-04 11:06 | HHI.PR ---
Subjective Remarks Patient seen and examined today for follow-up on CVA hemiplegia. Patient denies any new complaints. Patient keeps reminding me not forget his wheelchair when he discharges Objective Vitals Vital Signs Date Time Temp Pulse Resp B/P Pulse Ox O2 Delivery O2 Flow Rate FiO2 01/04/17 08:00 98.4 85 20 130/78 94 01/03/17 20:00 98.8 87 20 113/79 95 I/O 01/03/17 01/03/17 01/03/17 01/04/17 01/04/17 01/04/17 07:00 15:00 23:00 07:00 15:00 23:00 Intake Total 480 ml 480 ml 480 ml 240 ml Output Total 700 ml 1000 ml 350 ml 350 ml 350 ml Balance -220 ml -520 ml 130 ml -110 ml -350 ml Intake Oral 480 ml 480 ml 480 ml 240 ml Output Urine Total 700 ml 1000 ml 350 ml 350 ml 350 ml # Bowel Movements 0 0 0 Objective Remarks GENERAL: This is a well-nourished, well-developed patient, in no apparent distress. GENERAL: Well-developed, well-nourished, in no acute distress. alert and orientated HEENT: Head is normocephalic without any lesions or masses noted. Patient does have left-sided facial droop. Eyes: Extraocular muscles are intact. Conjunctivae were clear. NECK: Supple without any masses. Trachea midline no deviation. No JVD, CARDIAC: Regular rhythm, regular rate. S1/S2 are heard. No murmurs gallops or rubs. LUNGS: Clear to auscultation bilaterally. No wheeze, rhonchi or rales. No use of accessory muscles on inspiration or expiration. ABDOMEN: Soft, nontender. Nondistended. Bowel sounds heard in all 4 quadrants. No organomegaly or masses. Negative rebound, negative guarding EXTREMITIES: No edema, pulses are equal bilaterally. No cyanosis or clubbing NEUROLOGY: Mood and affect appear appropriate. Patient able to flex and extend left ankle. Patient is able to move his left upper extremity, he is moving his fingers. Right upper and lower extremity with 5/5 strength in 2+ deep tendon reflexes Urinary Catheter: No Vascular Central Line Catheter: No A/P Assessment and Plan Right Subacute basal ganglia infarct, with L hemiplegia Aspirin continued Continue PT/OT/ST evaluations --Xray left shoulder which did not indicate any acute abnormality or any separations DVT of the left lower extremity Patient on Xarelto Strep pneumonia meningitis, endocarditis, sepsis: Treated Infectious disease will need to be reconsulted since the patient left the hospital and patient with low-grade fever Completed Penicillin G 24 million units, end date 12/02/16 Blood cultures negative for 5 days, urinalysis clear, Chest x-rays shows mild streaky opacity in the left lung base consistent with scarring Hypertension, blood pressure stable Cardizem 240 mg daily Diabetes mellitus 2, stable Recent A1c 7.1 Accu-Cheks changed to daily with sliding scale insulin twice daily, patient does not require any sliding scale insulin tomorrow will discontinue Continue metformin 850 mg twice daily Adjustment disorder with depressed mood Psychiatry has evaluated the patient and recommended medication changes. Trazodone 50 mg at bedtime Seroquel 50 mg at bedtime Klonopin 0.5 mg every 12 hours GI Prophylaxis: Protonix. DVT prophylaxis: Xarelto Discharge Planning Case management for discharge planning. Patient has completed antibiotics at this time. Patient still with left hemiplegia. Patient will likely stay in the hospital until able to ambulate home as indicated patient now has Medicaid, however still waiting for social security to be approved for possible rehabilitation placement Josh Taylor Jan 04, 2017 11:06
[2017-01-04 20:00] VITALS: BP 117/85; PULSE 86; RESP 20; TEMP 99.4; O2SAT 95
[2017-01-04] MEDS: QUEtiapine FUMARATE 25 MG TAB PO SCH (21:03)
[2017-01-04] MEDS: traZODone HCL 50 MG TAB PO SCH (21:03)
[2017-01-05 05:27] LABS: HEMATOCRIT 37.3 % (39.0-51.0); MEAN CELL VOLUME 96.8 FL (80.0-100.0); MEAN CORPUSCULAR HEMOGLOBIN 31.7 PG (27.0-34.0); MEAN CORPUSCULAR HGB CONC 32.7 % (32.0-36.0); PLATELET COUNT 413 TH/MM3 (150-450); RED BLOOD COUNT 3.86 MIL/MM3 (4.50-5.90); RED CELL DISTRIBUTION WIDTH 13.2 % (11.6-17.2); REVIEW FLAG FINAL; WHITE BLOOD COUNT 11.2 TH/MM3 (4.0-11.0)
[2017-01-05 05:34] LABS: POTASSIUM 3.9 MEQ/L (3.5-5.1)
[2017-01-05 05:37] LABS: BICARBONATE 28.7 MEQ/L (21.0-32.0); MAGNESIUM 1.7 MG/DL (1.5-2.5)
[2017-01-05] MEDS: INSULIN ASPART SUPPLEMENTAL SCALE SQ SCH (07:00)
[2017-01-05 08:00] VITALS: BP 120/88; PULSE 83; RESP 18; TEMP 98.1; O2SAT 94
[2017-01-05] MEDS: ASPIRIN 81 MG CHEW TAB CHEW SCH (09:00)
[2017-01-05] MEDS: metFORMIN HCL 850 MG TAB PO SCH ×2 (10:03→17:27)
[2017-01-05] MEDS: RIVAROXABAN 20 MG TAB PO SCH (10:03)
[2017-01-05] MEDS: THIAMINE HCL 100 MG TAB PO SCH (10:03)
[2017-01-05] MEDS: DOCUSATE SODIUM 100 MG CAP PO SCH ×2 (10:03→21:01)
[2017-01-05] MEDS: SENNOSIDES 8.6 MG TAB PO SCH (10:03)
[2017-01-05] MEDS: DILTIAZEM-CD 240 MG CAP ER PO SCH (10:03)
[2017-01-05] MEDS: clonazePAM 0.5 MG TAB PO SCH ×2 (10:03→21:02)
[2017-01-05] MEDS: PANTOPRAZOLE SOD 40 MG DELAYED RELEASE TAB PO SCH (10:04)
--- NOTE | 2017-01-05 13:27 | HHI.PR ---
Subjective Remarks Patient seen and examined today in follow-up for CVA, hemiplegia. Patient is doing much better. Patient was seen while doing occupational therapy. Objective Vitals Vital Signs Date Time Temp Pulse Resp B/P Pulse Ox O2 Delivery O2 Flow Rate FiO2 01/05/17 08:00 98.1 83 18 120/88 94 01/04/17 20:00 99.4 86 20 117/85 95 I/O 01/04/17 01/04/17 01/04/17 01/05/17 01/05/17 01/05/17 07:00 15:00 23:00 07:00 15:00 23:00 Intake Total 240 ml 600 ml 480 ml 480 ml Output Total 350 ml 900 ml 900 ml 950 ml 800 ml Balance -110 ml -300 ml -420 ml -470 ml -800 ml Intake Oral 240 ml 600 ml 480 ml 480 ml Output Urine Total 350 ml 900 ml 900 ml 950 ml 800 ml # Bowel Movements 0 1 0 0 Result Diagram: 01/05/17 04301/05/17 0430 Objective Remarks GENERAL: This is a well-nourished, well-developed patient, in no apparent distress. GENERAL: Well-developed, well-nourished, in no acute distress. alert and orientated HEENT: Head is normocephalic without any lesions or masses noted. Patient does have left-sided facial droop. Eyes: Extraocular muscles are intact. Conjunctivae were clear. NECK: Supple without any masses. Trachea midline no deviation. No JVD, CARDIAC: Regular rhythm, regular rate. S1/S2 are heard. No murmurs gallops or rubs. LUNGS: Clear to auscultation bilaterally. No wheeze, rhonchi or rales. No use of accessory muscles on inspiration or expiration. ABDOMEN: Soft, nontender. Nondistended. Bowel sounds heard in all 4 quadrants. No organomegaly or masses. Negative rebound, negative guarding EXTREMITIES: No edema, pulses are equal bilaterally. No cyanosis or clubbing NEUROLOGY: Mood and affect appear appropriate. Patient able to flex and extend left ankle. Patient is able to move his left upper extremity, he is moving his fingers. Right upper and lower extremity with 5/5 strength in 2+ deep tendon reflexes Urinary Catheter: No Vascular Central Line Catheter: No A/P Assessment and Plan Right Subacute basal ganglia infarct, with L hemiplegia Aspirin continued Continue PT/OT/ST evaluations --Xray left shoulder which did not indicate any acute abnormality or any separations DVT of the left lower extremity Patient on Xarelto Strep pneumonia meningitis, endocarditis, sepsis: Treated Infectious disease will need to be reconsulted since the patient left the hospital and patient with low-grade fever Completed Penicillin G 24 million units, end date 12/02/16 Blood cultures negative for 5 days, urinalysis clear, Chest x-rays shows mild streaky opacity in the left lung base consistent with scarring Hypertension, blood pressure stable Cardizem 240 mg daily Diabetes mellitus 2, stable Recent A1c 7.1 Continue metformin 850 mg twice daily Discontinue sliding scale insulin A.m. Accu-Chek. If remains stable for the next to this 3 days may discontinue Adjustment disorder with depressed mood Psychiatry has evaluated the patient and recommended medication changes. Trazodone 50 mg at bedtime Seroquel 50 mg at bedtime Klonopin 0.5 mg every 12 hours GI Prophylaxis: Protonix. DVT prophylaxis: Xarelto Discharge Planning Case management for discharge planning. Patient has completed antibiotics at this time. Patient still with left hemiplegia. Patient will likely stay in the hospital until able to ambulate home as indicated patient now has Medicaid, however still waiting for social security to be approved for possible rehabilitation placement Josh Taylor January 05, 2017 13:27
[2017-01-05] MEDS ORDERED: WHEEMIS3 (13:52)
[2017-01-05 20:00] VITALS: BP 119/84; PULSE 90; RESP 20; TEMP 99.4; O2SAT 94
[2017-01-05] MEDS: traZODone HCL 50 MG TAB PO SCH (21:02)
[2017-01-05] MEDS: QUEtiapine FUMARATE 25 MG TAB PO SCH (21:02)
[2017-01-06 08:00] VITALS: BP 121/79; PULSE 83; RESP 18; TEMP 97.9; O2SAT 95
[2017-01-06] MEDS: DOCUSATE SODIUM 100 MG CAP PO SCH ×2 (08:38→20:05)
[2017-01-06] MEDS: ASPIRIN 81 MG CHEW TAB CHEW SCH (08:38)
[2017-01-06] MEDS: THIAMINE HCL 100 MG TAB PO SCH (08:38)
[2017-01-06] MEDS: clonazePAM 0.5 MG TAB PO SCH ×2 (08:38→20:05)
[2017-01-06] MEDS: PANTOPRAZOLE SOD 40 MG DELAYED RELEASE TAB PO SCH (08:39)
[2017-01-06] MEDS: RIVAROXABAN 20 MG TAB PO SCH (08:39)
[2017-01-06] MEDS: DILTIAZEM-CD 240 MG CAP ER PO SCH (08:39)
[2017-01-06] MEDS: metFORMIN HCL 850 MG TAB PO SCH ×2 (08:39→17:10)
[2017-01-06] MEDS: SENNOSIDES 8.6 MG TAB PO SCH (08:39)
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
--- NOTE | 2017-01-06 16:09 | HHI.PR ---
Subjective Remarks Patient evaluated this morning. Follow-up for CVA, hemiparesis. The patient states that he'd like to throw himself out of the window and when I ask why he states that he has been waiting for help as he needs to urinate. He further endorses SI, but states he would not be able to do anything because he can "barely get traction on the floor". He then bursts into tears. Objective Vitals Vital Signs Date Time Temp Pulse Resp B/P Pulse Ox O2 Delivery O2 Flow Rate FiO2 01/06/17 08:00 97.9 83 18 121/79 95 01/05/17 20:00 99.4 90 20 119/84 94 I/O 01/05/17 01/05/17 01/05/17 01/06/17 01/06/17 01/06/17 07:00 15:00 23:00 07:00 15:00 23:00 Intake Total 480 ml 540 ml 480 ml 420 ml Output Total 950 ml 800 ml 750 ml 350 ml Balance -470 ml -800 ml -210 ml 130 ml 420 ml Intake Oral 480 ml 540 ml 480 ml 420 ml Output Urine Total 950 ml 800 ml 750 ml 350 ml # Voids 2 # Bowel Movements 0 2 1 Result Diagram: 01/05/17 0430 01/05/17 0430 Objective Remarks GENERAL: Well-nourished, well developed patient no apparent distress. SKIN: Warm and dry. CARDIOVASCULAR: Regular rate and rhythm. RESPIRATORY: No accessory muscle use. CTAB. GASTROINTESTINAL: Abdomen soft, non-tender, nondistended. NEUROLOGICAL: Awake and alert. Normal speech. PSYCHIATRIC: Depressed mood and affect, crying. 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 Status: Acute (2) Bacterial meningitis ICD Code: G00.9 Status: Acute (3) Embolic stroke of left basal ganglia ICD Code: I63.40 Status: Acute (4) Deep vein thrombosis (DVT) of left lower extremity ICD Code: I82.402 Status: Acute Assessment and Plan Right Subacute basal ganglia infarct, with L hemiplegia Aspirin continued Continue PT/OT/ST evaluations X-ray left shoulder which did not indicate any acute abnormality or any separations DVT of the left lower extremity Patient on Xarelto Strep pneumonia meningitis, endocarditis, sepsis: Treated Infectious disease will need to be reconsulted since the patient left the hospital and patient with low-grade fever Completed Penicillin G 24 million units, end date 12/02/16 Blood cultures negative for 5 days, urinalysis clear. Chest x-rays shows mild streaky opacity in the left lung base consistent with scarring Hypertension, blood pressure stable Cardizem 240 mg daily Diabetes mellitus 2, stable Recent A1c 7.1 Continue metformin 850 mg twice daily Discontinue sliding scale insulin A.m. Accu-Chek. If remains stable for the next 2 days may discontinue Adjustment disorder with depressed mood 01/06/17: Psychiatry reconsulted today for depression and SI; sitter ordered. Psych note appreciated. Sitter discontinued. Trazodone increased to 100 mg po qhs. Seroquel 50 mg at bedtime Klonopin 0.5 mg every 12 hours GI Prophylaxis: Protonix. DVT prophylaxis: Xarelto Discharge Planning OT and PT recommending rehab. Patient still with poor balance per PT. 12/29: Per CM, patient now medicaid approved; SSI pending, then will need to find SNF. Kirsten Fournier January 06, 2017 16:09 12/29: Per CM, patient now medicaid approved; SSI pending, then will need to find SNF. Kirsten Fournier January 06, 2017 16:09
[2017-01-06 20:00] VITALS: BP 113/90; PULSE 89; RESP 21; TEMP 97.7; O2SAT 96
[2017-01-06] MEDS: traZODone HCL 100 MG TAB PO SCH (20:05)
[2017-01-06] MEDS: QUEtiapine FUMARATE 25 MG TAB PO SCH (20:05)
[2017-01-07] MEDS: DILTIAZEM-CD 240 MG CAP ER PO SCH (07:44)
[2017-01-07 08:00] VITALS: BP 106/70; PULSE 77; RESP 18; TEMP 96.6; O2SAT 95
--- NOTE | 2017-01-07 08:53 | HHI.PR ---
Subjective Remarks Patient evaluated this morning. Follow-up for CVA, hemiparesis. No acute issues. Objective Vitals Vital Signs Date Time Temp Pulse Resp B/P Pulse Ox O2 Delivery O2 Flow Rate FiO2 01/07/17 08:00 96.6 77 18 106/70 95 01/06/17 20:00 97.7 89 21 113/90 96 I/O 01/06/17 01/06/17 01/06/17 01/07/17 01/07/17 01/07/17 07:00 15:00 23:00 07:00 15:00 23:00 Intake Total 480 ml 420 ml 360 ml 240 ml 100 ml Output Total 350 ml 150 ml 775 ml Balance 130 ml 420 ml 210 ml -535 ml 100 ml Intake Oral 480 ml 420 ml 360 ml 240 ml 100 ml Output Urine Total 350 ml 150 ml 775 ml # Voids 2 # Bowel Movements 1 Result Diagram: 01/05/17 0430 01/05/17 0430 Objective Remarks GENERAL: Well-nourished, well developed patient no apparent distress. SKIN: Warm and dry. CARDIOVASCULAR: Regular rate and rhythm. RESPIRATORY: No accessory muscle use. CTAB. GASTROINTESTINAL: Abdomen soft, non-tender, nondistended. NEUROLOGICAL: Awake and alert. Normal speech. PSYCHIATRIC: Normal mood and affect. 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 Status: Acute (2) Bacterial meningitis ICD Code: G00.9 Status: Acute (3) Embolic stroke of left basal ganglia ICD Code: I63.40 Status: Acute (4) Deep vein thrombosis (DVT) of left lower extremity ICD Code: I82.402 Status: Acute Assessment and Plan Right Subacute basal ganglia infarct, with L hemiplegia Aspirin continued Continue PT/OT/ST evaluations X-ray left shoulder which did not indicate any acute abnormality or any separations DVT of the left lower extremity Patient on Xarelto Strep pneumonia meningitis, endocarditis, sepsis: Treated Infectious disease will need to be reconsulted since the patient left the hospital and patient with low-grade fever Completed Penicillin G 24 million units, end date 12/02/16 Blood cultures negative for 5 days, urinalysis clear. Chest x-rays shows mild streaky opacity in the left lung base consistent with scarring Hypertension, blood pressure stable Cardizem 240 mg daily Diabetes mellitus 2, stable Recent A1c 7.1 Continue metformin 850 mg twice daily Discontinue sliding scale insulin AM Accu-Checks stable. Discontinue. Adjustment disorder with depressed mood 01/06/17: Psychiatry reconsulted for depression and SI. Psych note appreciated. Sitter discontinued. Trazodone increased to 100 mg po qhs. Seroquel 50 mg at bedtime Klonopin 0.5 mg every 12 hours GI Prophylaxis: Protonix. DVT prophylaxis: Xarelto Discharge Planning OT and PT recommending rehab. Patient still with poor balance per PT. 12/29: Per CM, patient now medicaid approved; SSI pending, then will need to find SNF. Kirsten Fournier January 07, 2017 08:53
[2017-01-07] MEDS: THIAMINE HCL 100 MG TAB PO SCH (08:57)
[2017-01-07] MEDS: clonazePAM 0.5 MG TAB PO SCH ×2 (08:58→20:23)
[2017-01-07] MEDS: RIVAROXABAN 20 MG TAB PO SCH (08:58)
[2017-01-07] MEDS: ASPIRIN 81 MG CHEW TAB CHEW SCH (08:58)
[2017-01-07] MEDS: PANTOPRAZOLE SOD 40 MG DELAYED RELEASE TAB PO SCH (08:58)
[2017-01-07] MEDS: DOCUSATE SODIUM 100 MG CAP PO SCH ×2 (08:58→20:23)
[2017-01-07] MEDS: SENNOSIDES 8.6 MG TAB PO SCH (08:59)
[2017-01-07] MEDS: metFORMIN HCL 850 MG TAB PO SCH ×2 (08:59→17:08)
[2017-01-07 20:00] VITALS: BP 128/83; PULSE 95; RESP 21; TEMP 98.4; O2SAT 100
[2017-01-07] MEDS: traZODone HCL 100 MG TAB PO SCH (20:23)
[2017-01-07] MEDS: QUEtiapine FUMARATE 25 MG TAB PO SCH (20:23)
--- NOTE | 2017-01-08 08:25 | HHI.PR ---
Subjective Remarks Patient evaluated this morning. Follow-up for CVA, hemiparesis. Patient requests that his nighttime medications be given at 8 PM. Objective Vitals Vital Signs Date Time Temp Pulse Resp B/P Pulse Ox O2 Delivery O2 Flow Rate FiO2 01/07/17 20:00 98.4 95 21 128/83 100 I/O 01/07/17 01/07/17 01/07/17 01/08/17 01/08/17 01/08/17 07:00 15:00 23:00 07:00 15:00 23:00 Intake Total 240 ml 100 ml 480 ml 120 ml Output Total 775 ml 1250 ml 825 ml Balance -535 ml 100 ml -770 ml -705 ml Intake Oral 240 ml 100 ml 480 ml 120 ml Output Urine Total 775 ml 1250 ml 825 ml Result Diagram: 01/05/17 04301/05/17 0430 Objective Remarks GENERAL: Well-nourished, well developed patient no apparent distress. SKIN: Warm and dry. CARDIOVASCULAR: Regular rate and rhythm. RESPIRATORY: No accessory muscle use. CTAB. GASTROINTESTINAL: Abdomen soft, non-tender, nondistended. NEUROLOGICAL: Awake and alert. Normal speech. PSYCHIATRIC: Normal mood and affect. 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 Status: Acute (2) Bacterial meningitis ICD Code: G00.9 Status: Acute (3) Embolic stroke of left basal ganglia ICD Code: I63.40 Status: Acute (4) Deep vein thrombosis (DVT) of left lower extremity ICD Code: I82.402 Status: Acute Assessment and Plan Right Subacute basal ganglia infarct, with L hemiplegia Aspirin continued Continue PT/OT/ST evaluations X-ray left shoulder which did not indicate any acute abnormality or any separations DVT of the left lower extremity Patient on Xarelto Strep pneumonia meningitis, endocarditis, sepsis: Treated Infectious disease will need to be reconsulted since the patient left the hospital and patient with low-grade fever Completed Penicillin G 24 million units, end date 12/02/16 Blood cultures negative for 5 days, urinalysis clear. Chest x-rays shows mild streaky opacity in the left lung base consistent with scarring Hypertension, blood pressure stable Cardizem 240 mg daily Diabetes mellitus 2, stable Recent A1c 7.1 Continue metformin 850 mg twice daily Sliding scale insulin discontinued. AM Accu-Checks stable. Discontinued. Adjustment disorder with depressed mood 01/06/17: Psychiatry reconsulted for depression and SI. Psych note appreciated. Sitter discontinued. Trazodone increased to 100 mg po qhs. Seroquel 50 mg at bedtime Klonopin 0.5 mg every 12 hours GI Prophylaxis: Protonix. DVT prophylaxis: Xarelto Discharge Planning OT and PT recommending rehab. Patient still with poor balance per PT. 12/29: Per CM, patient now medicaid approved; SSI pending, then will need to find SNF. Kirsten Fournier January 08, 2017 08:25
[2017-01-08] MEDS: ASPIRIN 81 MG CHEW TAB CHEW SCH (09:00)
[2017-01-08] MEDS: THIAMINE HCL 100 MG TAB PO SCH (09:00)
[2017-01-08] MEDS: clonazePAM 0.5 MG TAB PO SCH ×2 (10:58→20:35)
[2017-01-08] MEDS: metFORMIN HCL 850 MG TAB PO SCH ×2 (10:58→18:26)
[2017-01-08] MEDS: SENNOSIDES 8.6 MG TAB PO SCH (10:59)
[2017-01-08] MEDS: PANTOPRAZOLE SOD 40 MG DELAYED RELEASE TAB PO SCH (10:59)
[2017-01-08] MEDS: DOCUSATE SODIUM 100 MG CAP PO SCH ×2 (10:59→20:35)
[2017-01-08] MEDS: RIVAROXABAN 20 MG TAB PO SCH (10:59)
[2017-01-08] MEDS: DILTIAZEM-CD 240 MG CAP ER PO SCH (10:59)
[2017-01-08 12:00] VITALS: BP 110/90; PULSE 110; RESP 20; TEMP 98.8; O2SAT 97
[2017-01-08 20:00] VITALS: BP 113/84; PULSE 88; RESP 18; TEMP 98.9; O2SAT 95
[2017-01-08] MEDS: traZODone HCL 100 MG TAB PO SCH (20:35)
[2017-01-08] MEDS: QUEtiapine FUMARATE 25 MG TAB PO SCH (20:36)
[2017-01-09] MEDS: SENNOSIDES 8.6 MG TAB PO SCH (08:20)
[2017-01-09] MEDS: DILTIAZEM-CD 240 MG CAP ER PO SCH (08:20)
[2017-01-09] MEDS: clonazePAM 0.5 MG TAB PO SCH ×2 (08:20→20:49)
[2017-01-09] MEDS: ASPIRIN 81 MG CHEW TAB CHEW SCH (08:20)
[2017-01-09] MEDS: DOCUSATE SODIUM 100 MG CAP PO SCH ×2 (08:20→20:49)
[2017-01-09] MEDS: RIVAROXABAN 20 MG TAB PO SCH (08:20)
[2017-01-09] MEDS: PANTOPRAZOLE SOD 40 MG DELAYED RELEASE TAB PO SCH (08:21)
[2017-01-09] MEDS: THIAMINE HCL 100 MG TAB PO SCH (08:21)
[2017-01-09] MEDS: metFORMIN HCL 850 MG TAB PO SCH ×2 (08:21→16:51)
[2017-01-09 08:48] VITALS: BP 111/78; PULSE 86; RESP 18; TEMP 97.9; O2SAT 95
--- NOTE | 2017-01-09 09:31 | HHI.PR ---
Subjective Remarks Follow up for CVA, left-sided hemiparesis, and DVT of the left lower extremity. No acute complaints this morning. Objective Vitals Vital Signs Date Time Temp Pulse Resp B/P Pulse Ox O2 Delivery O2 Flow Rate FiO2 01/09/17 08:48 97.9 86 18 111/78 95 01/08/17 20:00 98.9 88 18 113/84 95 01/08/17 12:00 98.8 110 20 110/90 97 I/O 01/08/17 01/08/17 01/08/17 01/09/17 01/09/17 01/09/17 07:00 15:00 23:00 07:00 15:00 23:00 Intake Total 120 ml 1681 ml 480 ml Output Total 825 ml 250 ml 800 ml Balance -705 ml 1431 ml -320 ml Intake Oral 120 ml 1681 ml 480 ml Output Urine Total 825 ml 250 ml 800 ml # Voids 5 # Bowel Movements 0 0 Result Diagram: 01/05/17 0430 01/05/17 0430 Objective Remarks GENERAL: Well-nourished, well developed patient no apparent distress. SKIN: Warm and dry. CARDIOVASCULAR: Regular rate and rhythm. RESPIRATORY: No accessory muscle use. CTAB. GASTROINTESTINAL: Abdomen soft, non-tender, nondistended. NEUROLOGICAL: Awake and alert. Normal speech. PSYCHIATRIC: Normal mood and affect. 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 Status: Acute (2) Bacterial meningitis ICD Code: G00.9 Status: Acute (3) Embolic stroke of left basal ganglia ICD Code: I63.40 Status: Acute (4) Deep vein thrombosis (DVT) of left lower extremity ICD Code: I82.402 Status: Acute Assessment and Plan Right Subacute basal ganglia infarct, with L hemiplegia Aspirin continued Continue PT/OT/ST evaluations X-ray left shoulder which did not indicate any acute abnormality or any separations DVT of the left lower extremity Patient on Xarelto Strep pneumonia meningitis, endocarditis, sepsis: Treated Infectious disease will need to be reconsulted since the patient left the hospital and patient with low-grade fever Completed Penicillin G 24 million units, end date 12/02/16 Blood cultures negative for 5 days, urinalysis clear. Chest x-rays shows mild streaky opacity in the left lung base consistent with scarring Hypertension, blood pressure stable Cardizem 240 mg daily Diabetes mellitus 2, stable Recent A1c 7.1 Continue metformin 850 mg twice daily Sliding scale insulin discontinued. AM Accu-Checks stable. Discontinued. Adjustment disorder with depressed mood 01/06/17: Psychiatry reconsulted for depression and SI. Psych note appreciated. Sitter discontinued. Trazodone increased to 100 mg po qhs. Seroquel 50 mg at bedtime Klonopin 0.5 mg every 12 hours GI Prophylaxis: Protonix. DVT prophylaxis: Xarelto Discharge Planning OT and PT recommending rehab. Wheelchair and L ankle/foot orthosis recommended. 12/29: Per CM, patient now medicaid approved; SSI pending, then will need to find SNF. 01/09: PT states patient is progressing. Kirsten Fournier January 09, 2017 09:31
[2017-01-09 20:00] VITALS: BP 130/84; PULSE 87; RESP 20; TEMP 98.2; O2SAT 96
[2017-01-09] MEDS: QUEtiapine FUMARATE 25 MG TAB PO SCH (20:49)
[2017-01-09] MEDS: traZODone HCL 100 MG TAB PO SCH (20:49)
[2017-01-10 08:00] VITALS: BP 116/78; PULSE 89; RESP 19; TEMP 98.5; O2SAT 93
[2017-01-10] MEDS: DOCUSATE SODIUM 100 MG CAP PO SCH ×2 (09:36→20:28)
[2017-01-10] MEDS: SENNOSIDES 8.6 MG TAB PO SCH (09:36)
[2017-01-10] MEDS: ASPIRIN 81 MG CHEW TAB CHEW SCH (09:36)
[2017-01-10] MEDS: DILTIAZEM-CD 240 MG CAP ER PO SCH (09:36)
[2017-01-10] MEDS: clonazePAM 0.5 MG TAB PO SCH ×2 (09:36→20:28)
[2017-01-10] MEDS: THIAMINE HCL 100 MG TAB PO SCH (09:36)
[2017-01-10] MEDS: metFORMIN HCL 850 MG TAB PO SCH ×2 (09:36→16:36)
[2017-01-10] MEDS: RIVAROXABAN 20 MG TAB PO SCH (09:36)
[2017-01-10] MEDS: PANTOPRAZOLE SOD 40 MG DELAYED RELEASE TAB PO SCH (09:37)
--- NOTE | 2017-01-10 10:11 | HHI.PR ---
Subjective Remarks Follow-up for CVA, left-sided hemiparesis. No acute complaints this morning. Objective Vitals Vital Signs Date Time Temp Pulse Resp B/P Pulse Ox O2 Delivery O2 Flow Rate FiO2 01/10/17 08:00 98.5 89 19 116/78 93 01/09/17 20:00 98.2 87 20 130/84 96 I/O 01/09/17 01/09/17 01/09/17 01/10/17 01/10/17 01/10/17 07:00 15:00 23:00 07:00 15:00 23:00 Intake Total 480 ml 1430 ml 480 ml Output Total 800 ml 300 ml 725 ml Balance -320 ml 1130 ml -245 ml Intake Oral 480 ml 1430 ml 480 ml Output Urine Total 800 ml 300 ml 725 ml # Voids 4 # Bowel Movements 0 2 0 Objective Remarks GENERAL: Well-nourished, well developed patient no apparent distress. SKIN: Warm and dry. CARDIOVASCULAR: Regular rate and rhythm. RESPIRATORY: No accessory muscle use. CTAB. GASTROINTESTINAL: Abdomen soft, non-tender, nondistended. NEUROLOGICAL: Awake and alert. Normal speech. PSYCHIATRIC: Improved mood and normal affect. 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 Status: Acute (2) Bacterial meningitis ICD Code: G00.9 Status: Acute (3) Embolic stroke of left basal ganglia ICD Code: I63.40 Status: Acute (4) Deep vein thrombosis (DVT) of left lower extremity ICD Code: I82.402 Status: Acute Assessment and Plan Right Subacute basal ganglia infarct, with L hemiplegia Aspirin continued Continue PT/OT/ST evaluations X-ray left shoulder which did not indicate any acute abnormality or any separations DVT of the left lower extremity Patient on Xarelto Strep pneumonia meningitis, endocarditis, sepsis: Treated Infectious disease will need to be reconsulted since the patient left the hospital and patient with low-grade fever Completed Penicillin G 24 million units, end date 12/02/16 Blood cultures negative for 5 days, urinalysis clear. Chest x-rays shows mild streaky opacity in the left lung base consistent with scarring Hypertension, blood pressure stable Cardizem 240 mg daily Diabetes mellitus 2, stable Recent A1c 7.1 Continue metformin 850 mg twice daily Sliding scale insulin discontinued. AM Accu-Checks stable. Discontinued. Adjustment disorder with depressed mood 01/06/17: Psychiatry reconsulted for depression and SI. Psych note appreciated. Sitter discontinued. Trazodone increased to 100 mg po qhs. Seroquel 50 mg at bedtime Klonopin 0.5 mg every 12 hours GI Prophylaxis: Protonix. DVT prophylaxis: Xarelto Discharge Planning OT and PT recommending rehab. Wheelchair and L ankle/foot orthosis recommended. 12/29: Per CM, patient now medicaid approved; SSI pending, then will need to find SNF. 01/09: PT states patient is progressing. Kirsten Fournier January 10, 2017 10:11
[2017-01-10 20:00] VITALS: BP 129/84; PULSE 92; RESP 20; TEMP 98.5; O2SAT 96
[2017-01-10] MEDS: QUEtiapine FUMARATE 25 MG TAB PO SCH (20:28)
[2017-01-10] MEDS: traZODone HCL 100 MG TAB PO SCH (20:28)
[2017-01-11 08:00] VITALS: BP 121/76; PULSE 85; RESP 20; TEMP 97.2; O2SAT 96
[2017-01-11] MEDS: ASPIRIN 81 MG CHEW TAB CHEW SCH (08:20)
[2017-01-11] MEDS: DOCUSATE SODIUM 100 MG CAP PO SCH ×2 (08:20→20:13)
[2017-01-11] MEDS: RIVAROXABAN 20 MG TAB PO SCH (08:20)
[2017-01-11] MEDS: SENNOSIDES 8.6 MG TAB PO SCH (08:20)
[2017-01-11] MEDS: DILTIAZEM-CD 240 MG CAP ER PO SCH (08:20)
[2017-01-11] MEDS: PANTOPRAZOLE SOD 40 MG DELAYED RELEASE TAB PO SCH (08:20)
[2017-01-11] MEDS: THIAMINE HCL 100 MG TAB PO SCH (08:21)
[2017-01-11] MEDS: clonazePAM 0.5 MG TAB PO SCH ×2 (08:21→20:13)
[2017-01-11] MEDS: metFORMIN HCL 850 MG TAB PO SCH ×2 (08:21→17:37)
--- NOTE | 2017-01-11 10:21 | HHI.PR ---
Subjective Remarks Follow-up for CVA, left-sided hemiparesis. No acute complaints. Objective Vitals Vital Signs Date Time Temp Pulse Resp B/P Pulse Ox O2 Delivery O2 Flow Rate FiO2 01/11/17 08:00 97.2 85 20 121/76 96 01/10/17 20:00 98.5 92 20 129/84 96 I/O 01/10/17 01/10/17 01/10/17 01/11/17 01/11/17 01/11/17 07:00 15:00 23:00 07:00 15:00 23:00 Intake Total 480 ml 360 ml 240 ml Output Total 725 ml 805 ml 875 ml Balance -245 ml -445 ml -635 ml Intake Oral 480 ml 360 ml 240 ml Output Urine Total 725 ml 805 ml 875 ml # Bowel Movements 0 Objective Remarks GENERAL: Well-nourished, well developed patient no apparent distress. SKIN: Warm and dry. CARDIOVASCULAR: Regular rate and rhythm. RESPIRATORY: No accessory muscle use. CTAB. GASTROINTESTINAL: Abdomen soft, non-tender, nondistended. NEUROLOGICAL: Awake and alert. Normal speech. PSYCHIATRIC: Normal mood and affect. 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 Status: Acute (2) Bacterial meningitis ICD Code: G00.9 Status: Acute (3) Embolic stroke of left basal ganglia ICD Code: I63.40 Status: Acute (4) Deep vein thrombosis (DVT) of left lower extremity ICD Code: I82.402 Status: Acute Assessment and Plan Right Subacute basal ganglia infarct, with L hemiplegia Aspirin continued Continue PT/OT/ST evaluations X-ray left shoulder which did not indicate any acute abnormality or any separations DVT of the left lower extremity Patient on Xarelto Strep pneumonia meningitis, endocarditis, sepsis: Treated Infectious disease will need to be reconsulted since the patient left the hospital and patient with low-grade fever Completed Penicillin G 24 million units, end date 12/02/16 Blood cultures negative for 5 days, urinalysis clear. Chest x-rays shows mild streaky opacity in the left lung base consistent with scarring Hypertension, blood pressure stable Cardizem 240 mg daily Diabetes mellitus 2, stable Recent A1c 7.1 Continue metformin 850 mg twice daily Sliding scale insulin discontinued. AM Accu-Checks stable. Discontinued. Adjustment disorder with depressed mood 01/06/17: Psychiatry reconsulted for depression and SI. Psych note appreciated. Sitter discontinued. Trazodone increased to 100 mg po qhs. Seroquel 50 mg at bedtime Klonopin 0.5 mg every 12 hours GI Prophylaxis: Protonix. DVT prophylaxis: Xarelto Discharge Planning OT and PT recommending rehab. Wheelchair and L ankle/foot orthosis recommended. 12/29: Per CM, patient now medicaid approved; SSI pending, then will need to find SNF. Kirsten Fournier January 11, 2017 10:21
[2017-01-11] MEDS: traZODone HCL 100 MG TAB PO SCH (20:13)
[2017-01-11] MEDS: QUEtiapine FUMARATE 25 MG TAB PO SCH (20:13)
[2017-01-11 20:40] VITALS: BP 129/88; PULSE 89; RESP 18; TEMP 98.3; O2SAT 96
[2017-01-12 08:00] VITALS: BP 119/82; PULSE 75; RESP 17; TEMP 98; O2SAT 98
[2017-01-12] MEDS: THIAMINE HCL 100 MG TAB PO SCH (08:33)
[2017-01-12] MEDS: clonazePAM 0.5 MG TAB PO SCH ×2 (08:33→20:43)
[2017-01-12] MEDS: ASPIRIN 81 MG CHEW TAB CHEW SCH (08:33)
[2017-01-12] MEDS: RIVAROXABAN 20 MG TAB PO SCH (08:33)
[2017-01-12] MEDS: PANTOPRAZOLE SOD 40 MG DELAYED RELEASE TAB PO SCH (08:33)
[2017-01-12] MEDS: SENNOSIDES 8.6 MG TAB PO SCH (08:33)
[2017-01-12] MEDS: metFORMIN HCL 850 MG TAB PO SCH ×2 (08:33→16:48)
[2017-01-12] MEDS: DILTIAZEM-CD 240 MG CAP ER PO SCH (08:33)
[2017-01-12] MEDS: DOCUSATE SODIUM 100 MG CAP PO SCH ×2 (08:33→20:42)
--- NOTE | 2017-01-12 10:28 | HHI.PR ---
Subjective Remarks Follow-up for CVA, left-sided hemiplegia. No acute complaints. Objective Vitals Vital Signs Date Time Temp Pulse Resp B/P Pulse Ox O2 Delivery O2 Flow Rate FiO2 01/12/17 08:00 98.0 75 17 119/82 98 01/11/17 20:40 98.3 89 18 129/88 96 I/O 01/11/17 01/11/17 01/11/17 01/12/17 01/12/17 01/12/17 07:00 15:00 23:00 07:00 15:00 23:00 Intake Total 240 ml 720 ml 250 ml 75 ml Output Total 875 ml 850 ml 650 ml 625 ml Balance -635 ml -130 ml -400 ml -550 ml Intake Oral 240 ml 720 ml 250 ml 75 ml IV Total 0 ml 0 ml Output Urine Total 875 ml 850 ml 650 ml 625 ml # Bowel Movements 0 Objective Remarks GENERAL: Well-nourished, well developed patient no apparent distress. SKIN: Warm and dry. CARDIOVASCULAR: Regular rate and rhythm. RESPIRATORY: No accessory muscle use. CTAB. GASTROINTESTINAL: Abdomen soft, non-tender, nondistended. NEUROLOGICAL: Awake and alert. Normal speech. PSYCHIATRIC: Normal mood and affect. 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 Status: Acute (2) Bacterial meningitis ICD Code: G00.9 Status: Acute (3) Embolic stroke of left basal ganglia ICD Code: I63.40 Status: Acute (4) Deep vein thrombosis (DVT) of left lower extremity ICD Code: I82.402 Status: Acute Assessment and Plan Right Subacute basal ganglia infarct, with L hemiplegia Aspirin continued Continue PT/OT/ST evaluations X-ray left shoulder which did not indicate any acute abnormality or any separations DVT of the left lower extremity Patient on Xarelto Strep pneumonia meningitis, endocarditis, sepsis: Treated Infectious disease will need to be reconsulted since the patient left the hospital and patient with low-grade fever Completed Penicillin G 24 million units, end date 12/02/16 Blood cultures negative for 5 days, urinalysis clear. Chest x-rays shows mild streaky opacity in the left lung base consistent with scarring Hypertension, blood pressure stable Cardizem 240 mg daily Diabetes mellitus 2, stable Recent A1c 7.1 Continue metformin 850 mg twice daily Sliding scale insulin discontinued. AM Accu-Checks stable. Discontinued. Adjustment disorder with depressed mood 01/06/17: Psychiatry reconsulted for depression and SI. Psych note appreciated. Sitter discontinued. Trazodone increased to 100 mg po qhs. Seroquel 50 mg at bedtime Klonopin 0.5 mg every 12 hours GI Prophylaxis: Protonix. DVT prophylaxis: Xarelto Discharge Planning OT and PT recommending rehab. Wheelchair and L ankle/foot orthosis recommended. 12/29: Per CM, patient now medicaid approved; SSI pending, then will need to find SNF. iKrsten Fournier January 12, 2017 10:28
[2017-01-12 20:00] VITALS: BP 129/78; PULSE 88; RESP 20; TEMP 98.7; O2SAT 95
[2017-01-12] MEDS: QUEtiapine FUMARATE 25 MG TAB PO SCH (20:42)
[2017-01-12] MEDS: traZODone HCL 100 MG TAB PO SCH (20:42)
[2017-01-13] MEDS: clonazePAM 0.5 MG TAB PO SCH ×2 (07:45→20:20)
[2017-01-13] MEDS: PANTOPRAZOLE SOD 40 MG DELAYED RELEASE TAB PO SCH (07:45)
[2017-01-13] MEDS: SENNOSIDES 8.6 MG TAB PO SCH (07:45)
[2017-01-13] MEDS: RIVAROXABAN 20 MG TAB PO SCH (07:45)
[2017-01-13] MEDS: DILTIAZEM-CD 240 MG CAP ER PO SCH (07:45)
[2017-01-13] MEDS: ASPIRIN 81 MG CHEW TAB CHEW SCH (07:45)
[2017-01-13] MEDS: THIAMINE HCL 100 MG TAB PO SCH (07:46)
[2017-01-13] MEDS: metFORMIN HCL 850 MG TAB PO SCH ×2 (07:46→18:15)
[2017-01-13] MEDS: DOCUSATE SODIUM 100 MG CAP PO SCH ×2 (07:46→20:20)
[2017-01-13 08:00] VITALS: BP 121/84; PULSE 75; RESP 19; TEMP 97.9; O2SAT 96
--- NOTE | 2017-01-13 11:05 | HHI.PR ---
Subjective Remarks Patient seen and examined today in follow-up for CVA and hemiplegia. Patient resting comfortable in bed. Denies any new complaints. No change in clinical status. Objective Vitals Vital Signs Date Time Temp Pulse Resp B/P Pulse Ox O2 Delivery O2 Flow Rate FiO2 01/13/17 08:00 97.9 75 19 121/84 96 01/12/17 20:00 98.7 88 20 129/78 95 I/O 01/12/17 01/12/17 01/12/17 01/13/17 01/13/17 01/13/17 07:00 15:00 23:00 07:00 15:00 23:00 Intake Total 75 ml 240 ml 240 ml Output Total 625 ml 400 ml 600 ml 575 ml Balance -550 ml -400 ml -360 ml -335 ml Intake Oral 75 ml 240 ml 240 ml IV Total 0 ml Output Urine Total 625 ml 400 ml 600 ml 575 ml # Voids 1 2 # Bowel Movements 0 0 Objective Remarks GENERAL: This is a well-nourished, well-developed patient, in no apparent distress. GENERAL: Well-developed, well-nourished, in no acute distress. alert and orientated HEENT: Head is normocephalic without any lesions or masses noted. Patient does have left-sided facial droop. Eyes: Extraocular muscles are intact. Conjunctivae were clear. NECK: Supple without any masses. Trachea midline no deviation. No JVD, CARDIAC: Regular rhythm, regular rate. S1/S2 are heard. No murmurs gallops or rubs. LUNGS: Clear to auscultation bilaterally. No wheeze, rhonchi or rales. No use of accessory muscles on inspiration or expiration. ABDOMEN: Soft, nontender. Nondistended. Bowel sounds heard in all 4 quadrants. No organomegaly or masses. Negative rebound, negative guarding EXTREMITIES: No edema, pulses are equal bilaterally. No cyanosis or clubbing NEUROLOGY: Mood and affect appear appropriate. Patient able to flex and extend left ankle. Patient is able to move his left upper extremity, he is moving his fingers. Right upper and lower extremity with 5/5 strength in 2+ deep tendon reflexes Urinary Catheter: No Vascular Central Line Catheter: No A/P Assessment and Plan Right Subacute basal ganglia infarct, with L hemiplegia Aspirin continued Continue PT/OT/ST evaluations --Xray left shoulder which did not indicate any acute abnormality or any separations DVT of the left lower extremity Patient on Xarelto Strep pneumonia meningitis, endocarditis, sepsis: Treated Infectious disease will need to be reconsulted since the patient left the hospital and patient with low-grade fever Completed Penicillin G 24 million units, end date 12/02/16 Blood cultures negative for 5 days, urinalysis clear, Chest x-rays shows mild streaky opacity in the left lung base consistent with scarring Hypertension, blood pressure stable Cardizem 240 mg daily Diabetes mellitus 2, stable Recent A1c 7.1 Continue metformin 850 mg twice daily Discontinue sliding scale insulin A.m. Accu-Chek. If remains stable for the next to this 3 days may discontinue Adjustment disorder with depressed mood Psychiatry was reconsulted on 01/06/17 because of increased acute depression and ideation. Medications were adjusted Trazodone 100 mg at bedtime Seroquel 50 mg at bedtime Klonopin 0.5 mg every 12 hours GI Prophylaxis: Protonix. DVT prophylaxis: Xarelto Discharge Planning Case management for discharge planning. Patient has completed antibiotics at this time. Patient still with left hemiplegia. Patient will likely stay in the hospital until able to ambulate home as indicated patient now has Medicaid, however still waiting for social security to be approved for possible rehabilitation placement Josh Taylor January 13, 2017 11:04
[2017-01-13 20:00] VITALS: BP 114/76; PULSE 88; RESP 20; TEMP 98.3; O2SAT 96
[2017-01-13] MEDS: traZODone HCL 100 MG TAB PO SCH (20:20)
[2017-01-13] MEDS: QUEtiapine FUMARATE 25 MG TAB PO SCH (20:20)
[2017-01-14 08:00] VITALS: BP 100/77; PULSE 66; RESP 20; TEMP 97; O2SAT 95
--- NOTE | 2017-01-14 11:08 | HHI.PR ---
Subjective Remarks Patient seen and examined today in follow-up for CVA and hemiparesis. Patient was working with physical therapy in bed. He is improving with his lower extremity function. He is very eager to go home Objective Vitals Vital Signs Date Time Temp Pulse Resp B/P Pulse Ox O2 Delivery O2 Flow Rate FiO2 01/14/17 08:00 97.0 66 20 100/77 95 01/13/17 20:00 98.3 88 20 114/76 96 I/O 01/13/17 01/13/17 01/13/17 01/14/17 01/14/17 01/14/17 07:00 15:00 23:00 07:00 15:00 23:00 Intake Total 240 ml 480 ml 240 ml Output Total 575 ml 400 ml 750 ml 450 ml Balance -335 ml -400 ml -270 ml -210 ml Intake Oral 240 ml 480 ml 240 ml Output Urine Total 575 ml 400 ml 750 ml 450 ml # Voids 2 # Bowel Movements 0 1 0 Objective Remarks GENERAL: This is a well-nourished, well-developed patient, in no apparent distress. GENERAL: Well-developed, well-nourished, in no acute distress. alert and orientated HEENT: Head is normocephalic without any lesions or masses noted. Patient does have left-sided facial droop. Eyes: Extraocular muscles are intact. Conjunctivae were clear. NECK: Supple without any masses. Trachea midline no deviation. No JVD, CARDIAC: Regular rhythm, regular rate. S1/S2 are heard. No murmurs gallops or rubs. LUNGS: Clear to auscultation bilaterally. No wheeze, rhonchi or rales. No use of accessory muscles on inspiration or expiration. ABDOMEN: Soft, nontender. Nondistended. Bowel sounds heard in all 4 quadrants. No organomegaly or masses. Negative rebound, negative guarding EXTREMITIES: No edema, pulses are equal bilaterally. No cyanosis or clubbing NEUROLOGY: Mood and affect appear appropriate. Patient able to flex and extend left ankle. Patient is able to move his left upper extremity, he is moving his fingers. Right upper and lower extremity with 5/5 strength in 2+ deep tendon reflexes Urinary Catheter: No Vascular Central Line Catheter: No A/P Assessment and Plan Right Subacute basal ganglia infarct, with L hemiplegia Aspirin continued Continue PT/OT/ST evaluations --Xray left shoulder which did not indicate any acute abnormality or any separations DVT of the left lower extremity Patient on Xarelto Strep pneumonia meningitis, endocarditis, sepsis: Treated Infectious disease will need to be reconsulted since the patient left the hospital and patient with low-grade fever Completed Penicillin G 24 million units, end date 12/02/16 Blood cultures negative for 5 days, urinalysis clear, Chest x-rays shows mild streaky opacity in the left lung base consistent with scarring Hypertension, blood pressure stable Cardizem 240 mg daily Diabetes mellitus 2, stable Recent A1c 7.1 Continue metformin 850 mg twice daily Discontinue sliding scale insulin A.m. Accu-Chek. If remains stable for the next to this 3 days may discontinue Adjustment disorder with depressed mood Psychiatry was reconsulted on 01/06/17 because of increased acute depression and ideation. Medications were adjusted Trazodone 100 mg at bedtime Seroquel 50 mg at bedtime Klonopin 0.5 mg every 12 hours GI Prophylaxis: Protonix. DVT prophylaxis: Xarelto Discharge Planning Case management for discharge planning. Patient has completed antibiotics at this time. Patient still with left hemiplegia. Patient will likely stay in the hospital until able to ambulate home as indicated patient now has Medicaid, however still waiting for social security to be approved for possible rehabilitation placement Josh Taylor January 14, 2017 11:08
[2017-01-14] MEDS: PANTOPRAZOLE SOD 40 MG DELAYED RELEASE TAB PO SCH (11:37)
[2017-01-14] MEDS: SENNOSIDES 8.6 MG TAB PO SCH (11:38)
[2017-01-14] MEDS: clonazePAM 0.5 MG TAB PO SCH ×2 (11:38→19:03)
[2017-01-14] MEDS: ASPIRIN 81 MG CHEW TAB CHEW SCH (11:38)
[2017-01-14] MEDS: DILTIAZEM-CD 240 MG CAP ER PO SCH (11:38)
[2017-01-14] MEDS: DOCUSATE SODIUM 100 MG CAP PO SCH ×2 (11:38→19:03)
[2017-01-14] MEDS: metFORMIN HCL 850 MG TAB PO SCH ×2 (11:38→17:20)
[2017-01-14] MEDS: THIAMINE HCL 100 MG TAB PO SCH (11:38)
[2017-01-14] MEDS: RIVAROXABAN 20 MG TAB PO SCH (11:38)
[2017-01-14] MEDS: QUEtiapine FUMARATE 25 MG TAB PO SCH (19:03)
[2017-01-14] MEDS: traZODone HCL 100 MG TAB PO SCH (19:03)
[2017-01-14 20:00] VITALS: BP 140/89; PULSE 83; RESP 22; TEMP 97; O2SAT 96
[2017-01-15] MEDS: clonazePAM 0.5 MG TAB PO SCH ×2 (09:16→20:56)
[2017-01-15] MEDS: DOCUSATE SODIUM 100 MG CAP PO SCH ×2 (09:16→20:57)
[2017-01-15] MEDS: THIAMINE HCL 100 MG TAB PO SCH (09:16)
[2017-01-15] MEDS: SENNOSIDES 8.6 MG TAB PO SCH (09:16)
[2017-01-15] MEDS: PANTOPRAZOLE SOD 40 MG DELAYED RELEASE TAB PO SCH (09:16)
[2017-01-15] MEDS: metFORMIN HCL 850 MG TAB PO SCH ×2 (09:16→17:50)
[2017-01-15] MEDS: DILTIAZEM-CD 240 MG CAP ER PO SCH (09:16)
[2017-01-15] MEDS: ASPIRIN 81 MG CHEW TAB CHEW SCH (09:16)
[2017-01-15] MEDS: RIVAROXABAN 20 MG TAB PO SCH (09:17)
--- NOTE | 2017-01-15 10:03 | HHI.PR ---
Subjective Remarks Patient seen and examined today for follow-up on CVA and hemiplegia. Patient is progressing slowly on a daily basis. Denies any new complaints. Objective Vitals Vital Signs Date Time Temp Pulse Resp B/P Pulse Ox O2 Delivery O2 Flow Rate FiO2 01/14/17 20:00 97.0 83 22 140/89 96 I/O 01/14/17 01/14/17 01/14/17 01/15/17 01/15/17 01/15/17 06:59 14:59 22:59 06:59 14:59 22:59 Intake Total 240 ml 690 ml 480 ml 720 ml Output Total 450 ml 1000 ml 440 ml 950 ml Balance -210 ml -310 ml 40 ml -230 ml Intake Oral 240 ml 690 ml 480 ml 720 ml Output Urine Total 450 ml 1000 ml 440 ml 950 ml # Bowel Movements 0 0 0 0 Objective Remarks GENERAL: This is a well-nourished, well-developed patient, in no apparent distress. GENERAL: Well-developed, well-nourished, in no acute distress. alert and orientated HEENT: Head is normocephalic without any lesions or masses noted. Patient does have left-sided facial droop. Eyes: Extraocular muscles are intact. Conjunctivae were clear. NECK: Supple without any masses. Trachea midline no deviation. No JVD, CARDIAC: Regular rhythm, regular rate. S1/S2 are heard. No murmurs gallops or rubs. LUNGS: Clear to auscultation bilaterally. No wheeze, rhonchi or rales. No use of accessory muscles on inspiration or expiration. ABDOMEN: Soft, nontender. Nondistended. Bowel sounds heard in all 4 quadrants. No organomegaly or masses. Negative rebound, negative guarding EXTREMITIES: No edema, pulses are equal bilaterally. No cyanosis or clubbing NEUROLOGY: Mood and affect appear appropriate. Patient able to flex and extend left ankle. Patient is able to move his left upper extremity, he is moving his fingers. Right upper and lower extremity with 5/5 strength in 2+ deep tendon reflexes Urinary Catheter: No Vascular Central Line Catheter: No A/P Assessment and Plan Right Subacute basal ganglia infarct, with L hemiplegia Aspirin continued Continue PT/OT/ST evaluations --Xray left shoulder which did not indicate any acute abnormality or any separations DVT of the left lower extremity Patient on Xarelto Strep pneumonia meningitis, endocarditis, sepsis: Treated Infectious disease will need to be reconsulted since the patient left the hospital and patient with low-grade fever Completed Penicillin G 24 million units, end date 12/02/16 Blood cultures negative for 5 days, urinalysis clear, Chest x-rays shows mild streaky opacity in the left lung base consistent with scarring Hypertension, blood pressure stable Cardizem 240 mg daily Diabetes mellitus 2, stable Recent A1c 7.1 Continue metformin 850 mg twice daily Discontinue sliding scale insulin A.m. Accu-Chek. If remains stable for the next to this 3 days may discontinue Adjustment disorder with depressed mood Psychiatry was reconsulted on 01/06/17 because of increased acute depression and ideation. Medications were adjusted Trazodone 100 mg at bedtime Seroquel 50 mg at bedtime Klonopin 0.5 mg every 12 hours GI Prophylaxis: Protonix. DVT prophylaxis: Xarelto Discharge Planning Case management for discharge planning. Patient has completed antibiotics at this time. Patient still with left hemiplegia. Patient will likely stay in the hospital until able to ambulate home as indicated patient now has Medicaid, however still waiting for social security to be approved for possible rehabilitation placement Josh Taylor January 15, 2017 10:03
[2017-01-15 20:00] VITALS: BP 117/84; PULSE 79; RESP 21; TEMP 98; O2SAT 98
[2017-01-15] MEDS: traZODone HCL 100 MG TAB PO SCH (20:56)
[2017-01-15] MEDS: QUEtiapine FUMARATE 25 MG TAB PO SCH (20:57)
[2017-01-16] MEDS: SENNOSIDES 8.6 MG TAB PO SCH (09:00)
[2017-01-16] MEDS: DOCUSATE SODIUM 100 MG CAP PO SCH ×2 (09:00→20:40)
[2017-01-16] MEDS: PANTOPRAZOLE SOD 40 MG DELAYED RELEASE TAB PO SCH (09:27)
[2017-01-16] MEDS: metFORMIN HCL 850 MG TAB PO SCH ×2 (09:27→18:16)
[2017-01-16] MEDS: clonazePAM 0.5 MG TAB PO SCH ×2 (09:28→20:40)
[2017-01-16] MEDS: ASPIRIN 81 MG CHEW TAB CHEW SCH (09:28)
[2017-01-16] MEDS: RIVAROXABAN 20 MG TAB PO SCH (09:28)
[2017-01-16] MEDS: THIAMINE HCL 100 MG TAB PO SCH (09:28)
[2017-01-16] MEDS: DILTIAZEM-CD 240 MG CAP ER PO SCH (09:28)
--- NOTE | 2017-01-16 10:25 | HHI.PR ---
Subjective Remarks Patient seen and examined today for follow-up of CVA and hemiparesis. Patient is improving on daily basis. However there is morning when he was able to get out of bed with minimal support. He was walking with hemiwalker and physical therapist. Patient denying any new complaints today Objective Vitals Vital Signs Date Time Temp Pulse Resp B/P Pulse Ox O2 Delivery O2 Flow Rate FiO2 01/15/17 20:00 98.0 79 21 117/84 98 I/O 01/15/17 01/15/17 01/15/17 01/16/17 01/16/17 01/16/17 07:00 15:00 23:00 07:00 15:00 23:00 Intake Total 720 ml 0 ml 240 ml 240 ml Output Total 950 ml 700 ml 1175 ml Balance -230 ml 0 ml -460 ml -935 ml Intake Oral 720 ml 240 ml 240 ml IV Total 0 ml 0 ml Output Urine Total 950 ml 700 ml 1175 ml # Bowel Movements 0 Objective Remarks GENERAL: This is a well-nourished, well-developed patient, in no apparent distress. GENERAL: Well-developed, well-nourished, in no acute distress. alert and orientated HEENT: Head is normocephalic without any lesions or masses noted. Patient does have left-sided facial droop. Eyes: Extraocular muscles are intact. Conjunctivae were clear. NECK: Supple without any masses. Trachea midline no deviation. No JVD, CARDIAC: Regular rhythm, regular rate. S1/S2 are heard. No murmurs gallops or rubs. LUNGS: Clear to auscultation bilaterally. No wheeze, rhonchi or rales. No use of accessory muscles on inspiration or expiration. ABDOMEN: Soft, nontender. Nondistended. Bowel sounds heard in all 4 quadrants. No organomegaly or masses. Negative rebound, negative guarding EXTREMITIES: No edema, pulses are equal bilaterally. No cyanosis or clubbing NEUROLOGY: Mood and affect appear appropriate. Patient able to flex and extend left ankle. Patient is able to move his left upper extremity, he is moving his fingers. Right upper and lower extremity with 5/5 strength in 2+ deep tendon reflexes Urinary Catheter: No Vascular Central Line Catheter: No A/P Assessment and Plan Right Subacute basal ganglia infarct, with L hemiplegia Aspirin continued Continue PT/OT/ST evaluations, patient improving on a daily basis --Xray left shoulder which did not indicate any acute abnormality or any separations DVT of the left lower extremity Patient on Xarelto Strep pneumonia meningitis, endocarditis, sepsis: Treated Infectious disease will need to be reconsulted since the patient left the hospital and patient with low-grade fever Completed Penicillin G 24 million units, end date 12/02/16 Blood cultures negative for 5 days, urinalysis clear, Chest x-rays shows mild streaky opacity in the left lung base consistent with scarring Hypertension, blood pressure stable Cardizem 240 mg daily Diabetes mellitus 2, stable Recent A1c 7.1 Continue metformin 850 mg twice daily Discontinue sliding scale insulin A.m. Accu-Chek. If remains stable for the next to this 3 days may discontinue Adjustment disorder with depressed mood Psychiatry was reconsulted on 01/06/17 because of increased acute depression and ideation. Medications were adjusted Trazodone 100 mg at bedtime Seroquel 50 mg at bedtime Klonopin 0.5 mg every 12 hours GI Prophylaxis: Protonix. DVT prophylaxis: Xarelto Discharge Planning Case management for discharge planning. Patient has completed antibiotics at this time. Patient still with left hemiplegia. Patient will likely stay in the hospital until able to ambulate home as indicated patient now has Medicaid, however still waiting for social security to be approved for possible rehabilitation placement Josh Taylor January 16, 2017 10:24
[2017-01-16 20:00] VITALS: BP 111/77; PULSE 85; RESP 21; TEMP 99.1; O2SAT 97
[2017-01-16] MEDS: traZODone HCL 100 MG TAB PO SCH (20:40)
[2017-01-16] MEDS: QUEtiapine FUMARATE 25 MG TAB PO SCH (20:40)
[2017-01-17 08:00] VITALS: BP 125/77; PULSE 75; RESP 20; TEMP 97.9; O2SAT 95
[2017-01-17] MEDS: clonazePAM 0.5 MG TAB PO SCH ×2 (09:41→20:04)
[2017-01-17] MEDS: SENNOSIDES 8.6 MG TAB PO SCH (09:41)
[2017-01-17] MEDS: PANTOPRAZOLE SOD 40 MG DELAYED RELEASE TAB PO SCH (09:41)
[2017-01-17] MEDS: THIAMINE HCL 100 MG TAB PO SCH (09:41)
[2017-01-17] MEDS: DILTIAZEM-CD 240 MG CAP ER PO SCH (09:41)
[2017-01-17] MEDS: DOCUSATE SODIUM 100 MG CAP PO SCH ×2 (09:41→20:04)
[2017-01-17] MEDS: ASPIRIN 81 MG CHEW TAB CHEW SCH (09:41)
[2017-01-17] MEDS: RIVAROXABAN 20 MG TAB PO SCH (09:42)
[2017-01-17] MEDS: metFORMIN HCL 850 MG TAB PO SCH ×2 (09:42→17:44)
--- NOTE | 2017-01-17 12:28 | HHI.PR ---
Subjective Remarks Patient seen and examined today for follow-up on CVA and hemiparesis. Patient denies any new complaints. He is improving on a daily basis. Objective Vitals Vital Signs Date Time Temp Pulse Resp B/P Pulse Ox O2 Delivery O2 Flow Rate FiO2 01/17/17 08:00 97.9 75 20 125/77 95 01/16/17 20:00 99.1 85 21 111/77 97 I/O 01/16/17 01/16/17 01/16/17 01/17/17 01/17/17 01/17/17 07:00 15:00 23:00 07:00 15:00 23:00 Intake Total 240 ml 840 ml 360 ml Output Total 1175 ml 900 ml 650 ml 350 ml Balance -935 ml -60 ml -290 ml -350 ml Intake Oral 240 ml 840 ml 360 ml IV Total 0 ml Output Urine Total 1175 ml 900 ml 650 ml 350 ml Objective Remarks GENERAL: This is a well-nourished, well-developed patient, in no apparent distress. GENERAL: Well-developed, well-nourished, in no acute distress. alert and orientated HEENT: Head is normocephalic without any lesions or masses noted. Patient does have left-sided facial droop. Eyes: Extraocular muscles are intact. Conjunctivae were clear. NECK: Supple without any masses. Trachea midline no deviation. No JVD, CARDIAC: Regular rhythm, regular rate. S1/S2 are heard. No murmurs gallops or rubs. LUNGS: Clear to auscultation bilaterally. No wheeze, rhonchi or rales. No use of accessory muscles on inspiration or expiration. ABDOMEN: Soft, nontender. Nondistended. Bowel sounds heard in all 4 quadrants. No organomegaly or masses. Negative rebound, negative guarding EXTREMITIES: No edema, pulses are equal bilaterally. No cyanosis or clubbing NEUROLOGY: Mood and affect appear appropriate. Patient able to flex and extend left ankle. Patient is able to move his left upper extremity, he is moving his fingers. Right upper and lower extremity with 5/5 strength in 2+ deep tendon reflexes Urinary Catheter: No Vascular Central Line Catheter: No A/P Assessment and Plan Right Subacute basal ganglia infarct, with L hemiplegia Aspirin continued Continue PT/OT/ST evaluations, patient improving on a daily basis --Xray left shoulder which did not indicate any acute abnormality or any separations DVT of the left lower extremity Patient on Xarelto Strep pneumonia meningitis, endocarditis, sepsis: Treated Infectious disease will need to be reconsulted since the patient left the hospital and patient with low-grade fever Completed Penicillin G 24 million units, end date 12/02/16 Blood cultures negative for 5 days, urinalysis clear, Chest x-rays shows mild streaky opacity in the left lung base consistent with scarring Hypertension, blood pressure stable Cardizem 240 mg daily Diabetes mellitus 2, stable Recent A1c 7.1 Continue metformin 850 mg twice daily Discontinue sliding scale insulin A.m. Accu-Chek. If remains stable for the next to this 3 days may discontinue Adjustment disorder with depressed mood Psychiatry was reconsulted on 01/06/17 because of increased acute depression and ideation. Medications were adjusted Trazodone 100 mg at bedtime Seroquel 50 mg at bedtime Klonopin 0.5 mg every 12 hours GI Prophylaxis: Protonix. DVT prophylaxis: Xarelto Discharge Planning Case management for discharge planning. Patient has completed antibiotics at this time. Patient still with left hemiplegia. Patient will likely stay in the hospital until able to ambulate home as indicated patient now has Medicaid, however still waiting for social security to be approved for possible rehabilitation placement Josh Taylor January 17, 2017 12:28
[2017-01-17 20:00] VITALS: BP 121/90; PULSE 82; RESP 20; TEMP 97; O2SAT 96
[2017-01-17] MEDS: traZODone HCL 100 MG TAB PO SCH (20:04)
[2017-01-17] MEDS: QUEtiapine FUMARATE 25 MG TAB PO SCH (20:05)
--- NOTE | 2017-01-18 08:50 | HHI.PR ---
Subjective Remarks Patient seen and examined today for follow-up on CVA hemiparesis. Patient in good spirits today. Denies any new complaints. He is improving on a daily basis. Objective Vitals Vital Signs Date Time Temp Pulse Resp B/P Pulse Ox O2 Delivery O2 Flow Rate FiO2 01/17/17 20:00 97.0 82 20 121/90 96 I/O 01/17/17 01/17/17 01/17/17 01/18/17 01/18/17 01/18/17 07:00 15:00 23:00 07:00 15:00 23:00 Intake Total 360 ml 1200 ml 720 ml 220 ml Output Total 650 ml 600 ml 900 ml 700 ml Balance -290 ml 600 ml -180 ml -480 ml Intake Oral 360 ml 1200 ml 720 ml 220 ml Output Urine Total 650 ml 600 ml 900 ml 700 ml # Bowel Movements 0 0 0 Objective Remarks GENERAL: This is a well-nourished, well-developed patient, in no apparent distress. GENERAL: Well-developed, well-nourished, in no acute distress. alert and orientated HEENT: Head is normocephalic without any lesions or masses noted. Patient does have left-sided facial droop. Eyes: Extraocular muscles are intact. Conjunctivae were clear. NECK: Supple without any masses. Trachea midline no deviation. No JVD, CARDIAC: Regular rhythm, regular rate. S1/S2 are heard. No murmurs gallops or rubs. LUNGS: Clear to auscultation bilaterally. No wheeze, rhonchi or rales. No use of accessory muscles on inspiration or expiration. ABDOMEN: Soft, nontender. Nondistended. Bowel sounds heard in all 4 quadrants. No organomegaly or masses. Negative rebound, negative guarding EXTREMITIES: No edema, pulses are equal bilaterally. No cyanosis or clubbing NEUROLOGY: Mood and affect appear appropriate. Patient able to flex and extend left ankle. Patient is able to move his left upper extremity, he is moving his fingers. Right upper and lower extremity with 5/5 strength in 2+ deep tendon reflexes Urinary Catheter: No Vascular Central Line Catheter: No A/P Assessment and Plan Right Subacute basal ganglia infarct, with L hemiplegia Aspirin continued Continue PT/OT/ST evaluations, patient improving on a daily basis --Xray left shoulder which did not indicate any acute abnormality or any separations DVT of the left lower extremity Patient on Xarelto Strep pneumonia meningitis, endocarditis, sepsis: Treated Infectious disease will need to be reconsulted since the patient left the hospital and patient with low-grade fever Completed Penicillin G 24 million units, end date 12/02/16 Blood cultures negative for 5 days, urinalysis clear, Chest x-rays shows mild streaky opacity in the left lung base consistent with scarring Hypertension, blood pressure stable Cardizem 240 mg daily Diabetes mellitus 2, stable Recent A1c 7.1 Continue metformin 850 mg twice daily Adjustment disorder with depressed mood Psychiatry was reconsulted on 01/06/17 because of increased acute depression and ideation. Medications were adjusted Trazodone 100 mg at bedtime Seroquel 50 mg at bedtime Klonopin 0.5 mg every 12 hours GI Prophylaxis: Protonix. DVT prophylaxis: Xarelto Discharge Planning Case management for discharge planning. Patient has completed antibiotics at this time. Patient still with left hemiplegia. Patient will likely stay in the hospital until able to ambulate home as indicated patient now has Medicaid, however still waiting for social security to be approved for possible rehabilitation placement Josh Taylor January 18, 2017 08:50
[2017-01-18 09:43] VITALS: BP 110/83; PULSE 85; RESP 19; TEMP 98.3; O2SAT 95
[2017-01-18] MEDS: clonazePAM 0.5 MG TAB PO SCH ×2 (09:47→20:13)
[2017-01-18] MEDS: THIAMINE HCL 100 MG TAB PO SCH (09:47)
[2017-01-18] MEDS: DILTIAZEM-CD 240 MG CAP ER PO SCH (09:47)
[2017-01-18] MEDS: PANTOPRAZOLE SOD 40 MG DELAYED RELEASE TAB PO SCH (09:47)
[2017-01-18] MEDS: RIVAROXABAN 20 MG TAB PO SCH (09:48)
[2017-01-18] MEDS: DOCUSATE SODIUM 100 MG CAP PO SCH ×2 (09:48→20:14)
[2017-01-18] MEDS: metFORMIN HCL 850 MG TAB PO SCH ×2 (09:48→17:57)
[2017-01-18] MEDS: SENNOSIDES 8.6 MG TAB PO SCH (09:48)
[2017-01-18] MEDS: ASPIRIN 81 MG CHEW TAB CHEW SCH (09:48)
[2017-01-18 20:00] VITALS: BP 119/78; PULSE 85; RESP 22; TEMP 98.3; O2SAT 94
[2017-01-18] MEDS: QUEtiapine FUMARATE 25 MG TAB PO SCH (20:13)
[2017-01-18] MEDS: traZODone HCL 100 MG TAB PO SCH (20:14)
[2017-01-19 07:34] VITALS: BP 110/83; PULSE 85; RESP 19; TEMP 98.3; O2SAT 95
[2017-01-19] MEDS: metFORMIN HCL 850 MG TAB PO SCH ×2 (08:24→17:44)
[2017-01-19] MEDS: THIAMINE HCL 100 MG TAB PO SCH (08:24)
[2017-01-19] MEDS: SENNOSIDES 8.6 MG TAB PO SCH (08:24)
[2017-01-19] MEDS: clonazePAM 0.5 MG TAB PO SCH ×2 (08:25→20:40)
[2017-01-19] MEDS: DOCUSATE SODIUM 100 MG CAP PO SCH ×2 (08:25→20:40)
[2017-01-19] MEDS: DILTIAZEM-CD 240 MG CAP ER PO SCH (08:25)
[2017-01-19] MEDS: RIVAROXABAN 20 MG TAB PO SCH (08:25)
[2017-01-19] MEDS: PANTOPRAZOLE SOD 40 MG DELAYED RELEASE TAB PO SCH (08:25)
[2017-01-19] MEDS: ASPIRIN 81 MG CHEW TAB CHEW SCH (08:31)
--- NOTE | 2017-01-19 11:50 | HHI.PR ---
Subjective Remarks Patient seen and examined today in follow-up for CVA and hemiparesis. Patient is improving on a daily basis. Patient is more depressed today and states that he is more homesick because he is been here so long. He is just frustrated that he is not getting better quicker so he can go home. Objective Vitals Vital Signs Date Time Temp Pulse Resp B/P Pulse Ox O2 Delivery O2 Flow Rate FiO2 01/19/17 07:34 98.3 85 19 110/83 95 01/18/17 20:00 98.3 85 22 119/78 94 I/O 01/18/17 01/18/17 01/18/17 01/19/17 01/19/17 01/19/17 07:00 15:00 23:00 07:00 15:00 23:00 Intake Total 220 ml 480 ml 220 ml Output Total 700 ml 1500 ml 350 ml Balance -480 ml -1020 ml -130 ml Intake Oral 220 ml 480 ml 220 ml Output Urine Total 700 ml 1500 ml 350 ml # Bowel Movements 0 1 0 Objective Remarks GENERAL: This is a well-nourished, well-developed patient, in no apparent distress. GENERAL: Well-developed, well-nourished, in no acute distress. alert and orientated HEENT: Head is normocephalic without any lesions or masses noted. Patient does have left-sided facial droop. Eyes: Extraocular muscles are intact. Conjunctivae were clear. NECK: Supple without any masses. Trachea midline no deviation. No JVD, CARDIAC: Regular rhythm, regular rate. S1/S2 are heard. No murmurs gallops or rubs. LUNGS: Clear to auscultation bilaterally. No wheeze, rhonchi or rales. No use of accessory muscles on inspiration or expiration. ABDOMEN: Soft, nontender. Nondistended. Bowel sounds heard in all 4 quadrants. No organomegaly or masses. Negative rebound, negative guarding EXTREMITIES: No edema, pulses are equal bilaterally. No cyanosis or clubbing NEUROLOGY: Mood and affect appear appropriate. Patient able to flex and extend left ankle. Patient is able to move his left upper extremity, he is moving his fingers. Right upper and lower extremity with 5/5 strength in 2+ deep tendon reflexes Urinary Catheter: No Vascular Central Line Catheter: No A/P Assessment and Plan Right Subacute basal ganglia infarct, with L hemiplegia Aspirin continued Continue PT/OT/ST evaluations, patient improving on a daily basis --Xray left shoulder which did not indicate any acute abnormality or any separations DVT of the left lower extremity Patient on Xarelto Strep pneumonia meningitis, endocarditis, sepsis: Treated Infectious disease will need to be reconsulted since the patient left the hospital and patient with low-grade fever Completed Penicillin G 24 million units, end date 12/02/16 Blood cultures negative for 5 days, urinalysis clear, Chest x-rays shows mild streaky opacity in the left lung base consistent with scarring Hypertension, blood pressure stable Cardizem 240 mg daily Diabetes mellitus 2, stable Recent A1c 7.1 Continue metformin 850 mg twice daily Adjustment disorder with depressed mood Psychiatry was reconsulted on 01/06/17 because of increased acute depression and ideation. Medications were adjusted Trazodone 100 mg at bedtime Seroquel 50 mg at bedtime Klonopin 0.5 mg every 12 hours GI Prophylaxis: Protonix. DVT prophylaxis: Xarelto Discharge Planning Case management for discharge planning. Patient has completed antibiotics at this time. Patient still with left hemiplegia. Patient will likely stay in the hospital until able to ambulate home as indicated patient now has Medicaid, however still waiting for social security to be approved for possible rehabilitation placement Josh Taylor January 19, 2017 11:50
[2017-01-19 20:00] VITALS: BP 104/82; PULSE 87; RESP 20; TEMP 99.7; O2SAT 97
[2017-01-19] MEDS: QUEtiapine FUMARATE 25 MG TAB PO SCH (20:40)
[2017-01-19] MEDS: traZODone HCL 100 MG TAB PO SCH (20:40)
[2017-01-20 08:00] VITALS: BP 126/87; PULSE 74; RESP 17; TEMP 97.6; O2SAT 95
[2017-01-20] MEDS: SENNOSIDES 8.6 MG TAB PO SCH (09:57)
[2017-01-20] MEDS: clonazePAM 0.5 MG TAB PO SCH ×2 (09:58→20:13)
[2017-01-20] MEDS: DOCUSATE SODIUM 100 MG CAP PO SCH ×2 (09:58→20:13)
[2017-01-20] MEDS: RIVAROXABAN 20 MG TAB PO SCH (09:58)
[2017-01-20] MEDS: PANTOPRAZOLE SOD 40 MG DELAYED RELEASE TAB PO SCH (09:58)
[2017-01-20] MEDS: metFORMIN HCL 850 MG TAB PO SCH ×2 (09:58→17:44)
[2017-01-20] MEDS: DILTIAZEM-CD 240 MG CAP ER PO SCH (09:58)
[2017-01-20] MEDS: THIAMINE HCL 100 MG TAB PO SCH (09:58)
[2017-01-20] MEDS: ASPIRIN 81 MG CHEW TAB CHEW SCH (09:58)
--- NOTE | 2017-01-20 11:21 | HHI.PR ---
Subjective Remarks Follow-up for CVA, hemiparesis. No acute complaints reported. Objective Vitals Vital Signs Date Time Temp Pulse Resp B/P Pulse Ox O2 Delivery O2 Flow Rate FiO2 01/20/17 08:00 97.6 74 17 126/87 95 01/19/17 20:00 99.7 87 20 104/82 97 I/O 01/19/17 01/19/17 01/19/17 01/20/17 01/20/17 01/20/17 07:00 15:00 23:00 07:00 15:00 23:00 Intake Total 220 ml 240 ml 240 ml Output Total 350 ml 425 ml 625 ml 250 ml Balance -130 ml -185 ml -385 ml -250 ml Intake Oral 220 ml 240 ml 240 ml Output Urine Total 350 ml 425 ml 625 ml 250 ml # Bowel Movements 0 Objective Remarks GENERAL: Well-nourished, well developed patient no apparent distress. SKIN: Warm and dry. CARDIOVASCULAR: Regular rate and rhythm. RESPIRATORY: No accessory muscle use. Minimal scattered inspiratory wheezing. No rales or rhonchi. GASTROINTESTINAL: Abdomen soft, non-tender, nondistended. NEUROLOGICAL: Awake and alert. Normal speech. 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 Status: Acute (2) Bacterial meningitis ICD Code: G00.9 Status: Acute (3) Embolic stroke of left basal ganglia ICD Code: I63.40 Status: Acute (4) Deep vein thrombosis (DVT) of left lower extremity ICD Code: I82.402 Status: Acute Assessment and Plan Right Subacute basal ganglia infarct, with L hemiplegia Aspirin continued Continue PT/OT/ST evaluations X-ray left shoulder which did not indicate any acute abnormality or any separations DVT of the left lower extremity Patient on Xarelto Strep pneumonia meningitis, endocarditis, sepsis: Treated Infectious disease will need to be reconsulted since the patient left the hospital and patient with low-grade fever Completed Penicillin G 24 million units, end date 12/02/16 Blood cultures negative for 5 days, urinalysis clear. Chest x-rays shows mild streaky opacity in the left lung base consistent with scarring Hypertension, blood pressure stable Cardizem 240 mg daily Diabetes mellitus 2, stable Recent A1c 7.1 Continue metformin 850 mg twice daily Sliding scale insulin discontinued. AM Accu-Checks stable. Discontinued. Adjustment disorder with depressed mood 01/06/17: Psychiatry reconsulted for depression and SI. Psych note appreciated. Trazodone 100 mg po qhs. Seroquel 50 mg at bedtime Klonopin 0.5 mg every 12 hours GI Prophylaxis: Protonix. DVT prophylaxis: Xarelto Discharge Planning OT and PT recommending rehab. Wheelchair and L ankle/foot orthosis recommended. Per CM, patient now medicaid approved; SSI pending, then will need to find SNF. Kirsten Fournier January 20, 2017 11:21
[2017-01-20 20:00] VITALS: BP 121/88; PULSE 90; RESP 21; TEMP 98.6; O2SAT 96
[2017-01-20] MEDS: QUEtiapine FUMARATE 25 MG TAB PO SCH (20:13)
[2017-01-20] MEDS: traZODone HCL 100 MG TAB PO SCH (20:13)
[2017-01-21] MEDS ORDERED: diphenhydrAMINE HCL 25 MG CAP PO ONE ×2 (02:00→11:00)
[2017-01-21 08:00] VITALS: BP 123/87; PULSE 77; RESP 20; TEMP 95.2; O2SAT 95
[2017-01-21] MEDS: THIAMINE HCL 100 MG TAB PO SCH (08:45)
[2017-01-21] MEDS: ASPIRIN 81 MG CHEW TAB CHEW SCH (08:45)
[2017-01-21] MEDS: clonazePAM 0.5 MG TAB PO SCH ×2 (08:45→21:05)
[2017-01-21] MEDS: PANTOPRAZOLE SOD 40 MG DELAYED RELEASE TAB PO SCH (08:45)
[2017-01-21] MEDS: DILTIAZEM-CD 240 MG CAP ER PO SCH (08:45)
[2017-01-21] MEDS: RIVAROXABAN 20 MG TAB PO SCH (08:45)
[2017-01-21] MEDS: SENNOSIDES 8.6 MG TAB PO SCH (08:45)
[2017-01-21] MEDS: metFORMIN HCL 850 MG TAB PO SCH ×2 (08:45→17:24)
[2017-01-21] MEDS: DOCUSATE SODIUM 100 MG CAP PO SCH ×2 (08:45→21:05)
--- NOTE | 2017-01-21 09:39 | HHI.PR ---
Subjective Remarks Follow-up for CVA, left-sided hemiparesis, and left lower extremity DVT. RN states the patient has a rash to his back. Patient noted to have a rash to his chest as well and also states his left arm is itching. He received Benadryl last night which put him to sleep. Objective Vitals Vital Signs Date Time Temp Pulse Resp B/P Pulse Ox O2 Delivery O2 Flow Rate FiO2 01/21/17 08:00 95.2 77 20 123/87 95 01/20/17 20:00 98.6 90 21 121/88 96 I/O 01/20/17 01/20/17 01/20/17 01/21/17 01/21/17 01/21/17 07:00 15:00 23:00 07:00 15:00 23:00 Intake Total 240 ml 520 ml 360 ml 360 ml Output Total 625 ml 850 ml 425 ml 775 ml 900 ml Balance -385 ml -330 ml -65 ml -415 ml -900 ml Intake Oral 240 ml 520 ml 360 ml 360 ml Output Urine Total 625 ml 850 ml 425 ml 775 ml 900 ml Objective Remarks GENERAL: Well-nourished, well developed patient no apparent distress. SKIN: Blanching erythema to the dorsal left mid arm and wrist. There are mildly scaly small erythematous plaques to the anterior chest, and only mildly affecting the intertriginous region under the breasts. No vesicles. No odor or discharge from lesions. There is an erythematous patch over the L upper back that appears to be rash from sheets. CARDIOVASCULAR: Regular rate and rhythm. RESPIRATORY: No accessory muscle use. Mild scattered wheezing. No rales or rhonchi. GASTROINTESTINAL: Abdomen soft, non-tender, nondistended. NEUROLOGICAL: Awake and alert. Normal speech. Urinary Catheter: No Vascular Central Line Catheter: No A/P Problem List: (1) Rash ICD Code: R21 Status: Acute (2) Endocarditis of aortic valve ICD Code: I35.8 Status: Acute (3) Bacterial meningitis ICD Code: G00.9 Status: Acute (4) Embolic stroke of left basal ganglia ICD Code: I63.40 Status: Acute (5) Deep vein thrombosis (DVT) of left lower extremity ICD Code: I82.402 Status: Acute Assessment and Plan Rashes: Rash to back likely from sheets. There is some blanching erythema over L arm put patient states it may be red from scratching; could also be from sheets as patient has limited mobility of L arm. He's got a different rash to his chest with small slightly scaly plaques. He admits to history of psoriasis. -Benadryl 25 mg po once now for arm. Benadryl 25 mg po q6h prn pruritus. -I have asked Dr. Jones to look at rash to chest. May need hydrocortisone cream. Right Subacute basal ganglia infarct, with L hemiplegia Aspirin continued Continue PT/OT/ST evaluations X-ray left shoulder which did not indicate any acute abnormality or any separations DVT of the left lower extremity Patient on Xarelto Strep pneumonia meningitis, endocarditis, sepsis: Treated Infectious disease will need to be reconsulted since the patient left the hospital and patient with low-grade fever Completed Penicillin G 24 million units, end date 12/02/16 Blood cultures negative for 5 days, urinalysis clear. Chest x-rays shows mild streaky opacity in the left lung base consistent with scarring Hypertension, blood pressure stable Cardizem 240 mg daily Diabetes mellitus 2, stable Recent A1c 7.1 Continue metformin 850 mg twice daily Sliding scale insulin discontinued. AM Accu-Checks stable. Discontinued. Adjustment disorder with depressed mood 01/06/17: Psychiatry reconsulted for depression and SI. Psych note appreciated. Trazodone 100 mg po qhs. Seroquel 50 mg at bedtime Klonopin 0.5 mg every 12 hours GI Prophylaxis: Protonix. DVT prophylaxis: Xarelto Discharge Planning OT and PT recommending rehab. Wheelchair and L ankle/foot orthosis recommended. Per CM, patient now medicaid approved; SSI pending, then will need to find SNF. Kirsten Fournier January 21, 2017 09:39
[2017-01-21 20:00] VITALS: BP 117/79; PULSE 88; RESP 20; TEMP 98.7; O2SAT 95
[2017-01-21] MEDS: QUEtiapine FUMARATE 25 MG TAB PO SCH (21:05)
[2017-01-21] MEDS: traZODone HCL 100 MG TAB PO SCH (21:05)
[2017-01-21] MEDS: diphenhydrAMINE HCL 25 MG CAP PO PRN (21:05)
[2017-01-21] MEDS: HYDROCORTISONE 1% OINT 30 GM TUBE TOPICAL SCH (21:06)
[2017-01-22 04:00] VITALS: BP 108/90; PULSE 122; RESP 15; TEMP 97; O2SAT 95
[2017-01-22 08:56] VITALS: BP 116/84; PULSE 81; RESP 15; TEMP 98.2; O2SAT 95
[2017-01-22] MEDS: THIAMINE HCL 100 MG TAB PO SCH (09:00)
[2017-01-22] MEDS: DOCUSATE SODIUM 100 MG CAP PO SCH ×2 (09:31→20:52)
[2017-01-22] MEDS: PANTOPRAZOLE SOD 40 MG DELAYED RELEASE TAB PO SCH (09:31)
[2017-01-22] MEDS: RIVAROXABAN 20 MG TAB PO SCH (09:31)
[2017-01-22] MEDS: metFORMIN HCL 850 MG TAB PO SCH ×2 (09:32→18:02)
[2017-01-22] MEDS: SENNOSIDES 8.6 MG TAB PO SCH (09:32)
[2017-01-22] MEDS: ASPIRIN 81 MG CHEW TAB CHEW SCH (09:32)
[2017-01-22] MEDS: DILTIAZEM-CD 240 MG CAP ER PO SCH (09:32)
[2017-01-22] MEDS: clonazePAM 0.5 MG TAB PO SCH ×2 (09:32→20:52)
[2017-01-22] MEDS: HYDROCORTISONE 1% OINT 30 GM TUBE TOPICAL SCH ×2 (09:33→20:53)
--- NOTE | 2017-01-22 15:37 | HHI.PR ---
Subjective Remarks Follow-up for CVA, hemiparesis, DVT. Patient states he has itching over his back. He states he has a rash under his left arm. Objective Vitals Vital Signs Date Time Temp Pulse Resp B/P Pulse Ox O2 Delivery O2 Flow Rate FiO2 01/22/17 08:56 98.2 81 15 116/84 95 01/21/17 20:00 98.7 88 20 117/79 95 I/O 01/21/17 01/21/17 01/21/17 01/22/17 01/22/17 01/22/17 07:00 15:00 23:00 07:00 15:00 23:00 Intake Total 360 ml 960 ml 480 ml 240 ml Output Total 775 ml 1770 ml 400 ml 750 ml Balance -415 ml -810 ml 80 ml -510 ml Intake Oral 360 ml 960 ml 480 ml 240 ml Output Urine Total 775 ml 1770 ml 400 ml 750 ml # Bowel Movements 0 0 0 Objective Remarks GENERAL: Well-nourished, well developed patient no apparent distress. SKIN: Erythema no longer evident to L arm. Erythematous plaques to the anterior chest. Erythematous rash in L axilla with small macules at the border. CARDIOVASCULAR: Regular rate and rhythm. RESPIRATORY: No accessory muscle use. CTAB. GASTROINTESTINAL: Abdomen soft, non-tender, nondistended. NEUROLOGICAL: Awake and alert. Normal speech. Urinary Catheter: No Vascular Central Line Catheter: No A/P Problem List: (1) Rash ICD Code: R21 Status: Acute (2) Endocarditis of aortic valve ICD Code: I35.8 Status: Acute (3) Bacterial meningitis ICD Code: G00.9 Status: Acute (4) Embolic stroke of left basal ganglia ICD Code: I63.40 Status: Acute (5) Deep vein thrombosis (DVT) of left lower extremity ICD Code: I82.402 Status: Acute Assessment and Plan Rashes: Rash to back likely from sheets. There is a rash to his chest with small slightly scaly plaques, which is likely psoriasis as he has a history of this. He's got another rash in the L axilla which is likely candidal. -Benadryl 25 mg po q6h prn pruritus. -Hydrocortisone cream, apply to chest only which was explained to patient. -Order Clotrimazole cream for rash to L axilla. Right Subacute basal ganglia infarct, with L hemiplegia Aspirin continued Continue PT/OT/ST evaluations X-ray left shoulder which did not indicate any acute abnormality or any separations DVT of the left lower extremity Patient on Xarelto Strep pneumonia meningitis, endocarditis, sepsis: Treated Infectious disease will need to be reconsulted since the patient left the hospital and patient with low-grade fever Completed Penicillin G 24 million units, end date 12/02/16 Blood cultures negative for 5 days, urinalysis clear. Chest x-rays shows mild streaky opacity in the left lung base consistent with scarring Hypertension, blood pressure stable Cardizem 240 mg daily Diabetes mellitus 2, stable Recent A1c 7.1 Continue metformin 850 mg twice daily Sliding scale insulin discontinued. AM Accu-Checks stable. Discontinued. Adjustment disorder with depressed mood 01/06/17: Psychiatry reconsulted for depression and SI. Psych note appreciated. Trazodone 100 mg po qhs. Seroquel 50 mg at bedtime Klonopin 0.5 mg every 12 hours GI Prophylaxis: Protonix. DVT prophylaxis: Xarelto Discharge Planning OT and PT recommending rehab. Wheelchair and L ankle/foot orthosis recommended. Per CM, patient now medicaid approved; SSI pending, then will need to find SNF. Kirsten Fournier January 22, 2017 15:37
[2017-01-22 20:00] VITALS: BP 122/98; PULSE 87; RESP 20; TEMP 98.4; O2SAT 96
[2017-01-22] MEDS: traZODone HCL 100 MG TAB PO SCH (20:51)
[2017-01-22] MEDS: CLOTRIMAZOLE 1% CREAM 15 GM TOPICAL SCH (20:52)
[2017-01-22] MEDS: QUEtiapine FUMARATE 25 MG TAB PO SCH (20:52)
[2017-01-23 08:00] VITALS: BP 114/89; PULSE 83; RESP 20; TEMP 97.3; O2SAT 93
[2017-01-23] MEDS: DILTIAZEM-CD 240 MG CAP ER PO SCH (08:50)
[2017-01-23] MEDS: clonazePAM 0.5 MG TAB PO SCH ×2 (08:50→20:13)
[2017-01-23] MEDS: THIAMINE HCL 100 MG TAB PO SCH (08:50)
[2017-01-23] MEDS: SENNOSIDES 8.6 MG TAB PO SCH (08:50)
[2017-01-23] MEDS: metFORMIN HCL 850 MG TAB PO SCH ×2 (08:50→18:00)
[2017-01-23] MEDS: DOCUSATE SODIUM 100 MG CAP PO SCH ×2 (08:50→20:12)
[2017-01-23] MEDS: PANTOPRAZOLE SOD 40 MG DELAYED RELEASE TAB PO SCH (08:50)
[2017-01-23] MEDS: ASPIRIN 81 MG CHEW TAB CHEW SCH (08:51)
[2017-01-23] MEDS: RIVAROXABAN 20 MG TAB PO SCH (08:51)
--- NOTE | 2017-01-23 11:49 | HHI.PR ---
Subjective Remarks Follow-up for CVA, hemiparesis, DVT, multiple rashes. No new issues reported. Objective Vitals Vital Signs Date Time Temp Pulse Resp B/P Pulse Ox O2 Delivery O2 Flow Rate FiO2 01/23/17 08:00 97.3 83 20 114/89 93 01/22/17 20:00 98.4 87 20 122/98 96 I/O 01/22/17 01/22/17 01/22/17 01/23/17 01/23/17 01/23/17 07:00 15:00 23:00 07:00 15:00 23:00 Intake Total 240 ml 1100 ml 240 ml Output Total 750 ml 1700 ml 1325 ml Balance -510 ml -600 ml -1085 ml Intake Oral 240 ml 1100 ml 240 ml Output Urine Total 750 ml 1700 ml 1325 ml # Bowel Movements 0 0 0 Objective Remarks GENERAL: Well-nourished, well developed patient no apparent distress. SKIN: Erythematous macules to the anterior chest. Erythematous rash in L axilla. Bright red slightly peeling patch to L upper back. CARDIOVASCULAR: Regular rate and rhythm. RESPIRATORY: No accessory muscle use. CTAB. GASTROINTESTINAL: Abdomen soft, non-tender, nondistended. NEUROLOGICAL: Awake and alert. Normal speech. 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 There is a rash to his chest with small slightly scaly plaques, which is likely psoriasis as he has a history of this, improved. He's got another rash in the L axilla which is likely candidal. -Benadryl 25 mg po q6h prn pruritus. -Apply Hydrocortisone ointment to chest and back. -Apply Clotrimazole cream to axillary rash. Right Subacute basal ganglia infarct, with L hemiplegia Aspirin continued Continue PT/OT/ST evaluations X-ray left shoulder which did not indicate any acute abnormality or any separations DVT of the left lower extremity Patient on Xarelto Strep pneumonia meningitis, endocarditis, sepsis: Treated Infectious disease will need to be reconsulted since the patient left the hospital and patient with low-grade fever Completed Penicillin G 24 million units, end date 12/02/16 Blood cultures negative for 5 days, urinalysis clear. Chest x-rays shows mild streaky opacity in the left lung base consistent with scarring Hypertension, blood pressure stable Cardizem 240 mg daily Diabetes mellitus 2, stable Recent A1c 7.1 Continue metformin 850 mg twice daily Sliding scale insulin discontinued. AM Accu-Checks stable. Discontinued. Adjustment disorder with depressed mood 01/06/17: Psychiatry reconsulted for depression and SI. Psych note appreciated. Trazodone 100 mg po qhs. Seroquel 50 mg at bedtime Klonopin 0.5 mg every 12 hours GI Prophylaxis: Protonix. DVT prophylaxis: Xarelto Discharge Planning OT and PT recommending rehab. Wheelchair and L ankle/foot orthosis recommended. Per CM, patient now medicaid approved; SSI pending, then will need to find SNF. Kirsten Fournier January 23, 2017 11:49
[2017-01-23] MEDS: CLOTRIMAZOLE 1% CREAM 15 GM TOPICAL SCH ×2 (16:50→20:13)
[2017-01-23] MEDS: HYDROCORTISONE 1% OINT 30 GM TUBE TOPICAL SCH ×2 (16:52→20:13)
[2017-01-23 20:00] VITALS: BP 125/82; PULSE 89; RESP 16; TEMP 98; O2SAT 93
[2017-01-23] MEDS: QUEtiapine FUMARATE 25 MG TAB PO SCH (20:12)
[2017-01-23] MEDS: traZODone HCL 100 MG TAB PO SCH (20:12)
[2017-01-23] MEDS: diphenhydrAMINE HCL 25 MG CAP PO PRN (20:14)
[2017-01-24 08:00] VITALS: BP 123/86; PULSE 76; RESP 18; TEMP 98.3; O2SAT 98
[2017-01-24] MEDS: DOCUSATE SODIUM 100 MG CAP PO SCH ×2 (08:53→20:48)
[2017-01-24] MEDS: ASPIRIN 81 MG CHEW TAB CHEW SCH (08:53)
[2017-01-24] MEDS: metFORMIN HCL 850 MG TAB PO SCH ×2 (08:54→17:19)
[2017-01-24] MEDS: RIVAROXABAN 20 MG TAB PO SCH (08:54)
[2017-01-24] MEDS: DILTIAZEM-CD 240 MG CAP ER PO SCH (08:54)
[2017-01-24] MEDS: clonazePAM 0.5 MG TAB PO SCH ×2 (08:54→20:48)
[2017-01-24] MEDS: SENNOSIDES 8.6 MG TAB PO SCH (08:54)
[2017-01-24] MEDS: PANTOPRAZOLE SOD 40 MG DELAYED RELEASE TAB PO SCH (08:54)
[2017-01-24] MEDS: HYDROCORTISONE 1% OINT 30 GM TUBE TOPICAL SCH ×2 (08:56→20:48)
[2017-01-24] MEDS: THIAMINE HCL 100 MG TAB PO SCH (08:56)
[2017-01-24] MEDS: CLOTRIMAZOLE 1% CREAM 15 GM TOPICAL SCH ×2 (08:57→20:48)
--- NOTE | 2017-01-24 12:06 | HHI.PR ---
Subjective Remarks Follow-up for hemiparesis s/p CVA, DVT, multiple rashes. Patient admits to less itching over his back. Objective Vitals Vital Signs Date Time Temp Pulse Resp B/P Pulse Ox O2 Delivery O2 Flow Rate FiO2 01/24/17 08:00 98.3 76 18 123/86 98 01/23/17 20:00 98.0 89 16 125/82 93 I/O 01/23/17 01/23/17 01/23/17 01/24/17 01/24/17 01/24/17 07:00 15:00 23:00 07:00 15:00 23:00 Intake Total 240 ml 1440 ml 120 ml Output Total 1325 ml 800 ml 200 ml 1400 ml Balance -1085 ml 640 ml -200 ml -1280 ml Intake Oral 240 ml 1440 ml 120 ml Output Urine Total 1325 ml 800 ml 200 ml 1400 ml # Bowel Movements 0 0 0 Objective Remarks GENERAL: Well-nourished, well developed patient no apparent distress. SKIN: Erythematous plaques and macules to the anterior chest, but appears improved. Rash in L axilla is greatly improved, appears dusky rather than bright red as before. CARDIOVASCULAR: Regular rate and rhythm. RESPIRATORY: No accessory muscle use. CTAB. GASTROINTESTINAL: Abdomen soft, non-tender, nondistended. NEUROLOGICAL: Awake and alert. Normal speech. 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 There is a rash to his chest with small slightly scaly plaques, which is likely psoriasis as he has a history of this, improved. He's got another rash in the L axilla which is likely candidal, improved. -Benadryl 25 mg po q6h prn pruritus. -Apply Hydrocortisone ointment to chest and back. -Apply Clotrimazole cream to axillary rash. Right Subacute basal ganglia infarct, with L hemiplegia Aspirin continued Continue PT/OT/ST evaluations X-ray left shoulder which did not indicate any acute abnormality or any separations DVT of the left lower extremity Patient on Xarelto Strep pneumonia meningitis, endocarditis, sepsis: Treated Infectious disease will need to be reconsulted since the patient left the hospital and patient with low-grade fever Completed Penicillin G 24 million units, end date 12/02/16 Blood cultures negative for 5 days, urinalysis clear. Chest x-rays shows mild streaky opacity in the left lung base consistent with scarring Hypertension, blood pressure stable Cardizem 240 mg daily Diabetes mellitus 2, stable Recent A1c 7.1 Continue metformin 850 mg twice daily Sliding scale insulin discontinued. AM Accu-Checks stable. Discontinued. Adjustment disorder with depressed mood 01/06/17: Psychiatry reconsulted for depression and SI. Psych note appreciated. Trazodone 100 mg po qhs. Seroquel 50 mg at bedtime Klonopin 0.5 mg every 12 hours GI Prophylaxis: Protonix. DVT prophylaxis: Xarelto Discharge Planning OT and PT recommending rehab. Wheelchair and L ankle/foot orthosis recommended. Per CM, patient now medicaid approved; SSI pending, then will need to find SNF. Kirsten Fournier January 24, 2017 12:06
[2017-01-24] MEDS: QUEtiapine FUMARATE 25 MG TAB PO SCH (20:48)
[2017-01-24] MEDS: diphenhydrAMINE HCL 25 MG CAP PO PRN (20:48)
[2017-01-24] MEDS: traZODone HCL 100 MG TAB PO SCH (20:48)
[2017-01-24 20:51] VITALS: BP 142/85; PULSE 82; RESP 20; TEMP 98.7; O2SAT 96
[2017-01-25 08:00] VITALS: BP 123/86; PULSE 84; RESP 20; TEMP 97; O2SAT 95
[2017-01-25] MEDS: clonazePAM 0.5 MG TAB PO SCH ×2 (08:24→21:07)
[2017-01-25] MEDS: PANTOPRAZOLE SOD 40 MG DELAYED RELEASE TAB PO SCH (08:24)
[2017-01-25] MEDS: metFORMIN HCL 850 MG TAB PO SCH ×2 (08:24→17:04)
[2017-01-25] MEDS: THIAMINE HCL 100 MG TAB PO SCH (08:24)
[2017-01-25] MEDS: ASPIRIN 81 MG CHEW TAB CHEW SCH (08:25)
[2017-01-25] MEDS: RIVAROXABAN 20 MG TAB PO SCH (08:25)
[2017-01-25] MEDS: DOCUSATE SODIUM 100 MG CAP PO SCH ×2 (08:25→21:08)
[2017-01-25] MEDS: DILTIAZEM-CD 240 MG CAP ER PO SCH (08:25)
[2017-01-25] MEDS: SENNOSIDES 8.6 MG TAB PO SCH (08:25)
[2017-01-25] MEDS: CLOTRIMAZOLE 1% CREAM 15 GM TOPICAL SCH ×2 (08:26→21:11)
--- NOTE | 2017-01-25 09:27 | HHI.PR ---
Subjective Remarks Follow-up for hemiparesis status post CVA, left lower extremity DVT, and multiple rashes. Patient states he has increased itching over the back. Objective Vitals Vital Signs Date Time Temp Pulse Resp B/P Pulse Ox O2 Delivery O2 Flow Rate FiO2 01/24/17 20:51 98.7 82 20 142/85 96 I/O 01/24/17 01/24/17 01/24/17 01/25/17 01/25/17 01/25/17 06:59 14:59 22:59 06:59 14:59 22:59 Intake Total 120 ml 300 ml 600 ml Output Total 1400 ml 600 ml 550 ml 1000 ml Balance -1280 ml -300 ml 50 ml -1000 ml Intake Oral 120 ml 300 ml 600 ml Output Urine Total 1400 ml 600 ml 550 ml 1000 ml # Bowel Movements 0 Objective Remarks GENERAL: Well-nourished, well developed patient no apparent distress. SKIN: Erythematous plaques and macules to the anterior chest. Rash in L axilla is greatly improved, no longer erythematous. 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 CARDIOVASCULAR: Regular rate and rhythm. RESPIRATORY: No accessory muscle use. CTAB. GASTROINTESTINAL: Abdomen soft, non-tender, nondistended. NEUROLOGICAL: Awake and alert. Normal speech. 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 Rash to back is likely contact dermatitis from sheets. There is a rash to his chest with small slightly scaly plaques, which is likely psoriasis as he has a history of this. He's got another rash in the L axilla which is likely candidal. -Benadryl 25 mg po q6h prn pruritus. -Apply Hydrocortisone ointment to chest and back. -Apply Clotrimazole cream to axillary rash. Right Subacute basal ganglia infarct, with L hemiplegia Aspirin continued Continue PT/OT/ST evaluations X-ray left shoulder which did not indicate any acute abnormality or any separations DVT of the left lower extremity Patient on Xarelto Strep pneumonia meningitis, endocarditis, sepsis: Treated Infectious disease will need to be reconsulted since the patient left the hospital and patient with low-grade fever Completed Penicillin G 24 million units, end date 12/02/16 Blood cultures negative for 5 days, urinalysis clear. Chest x-rays shows mild streaky opacity in the left lung base consistent with scarring Hypertension, blood pressure stable Cardizem 240 mg daily Diabetes mellitus 2, stable Recent A1c 7.1 Continue metformin 850 mg twice daily Sliding scale insulin discontinued. AM Accu-Checks stable. Discontinued. Adjustment disorder with depressed mood 01/06/17: Psychiatry reconsulted for depression and SI. Psych note appreciated. Trazodone 100 mg po qhs. Seroquel 50 mg at bedtime Klonopin 0.5 mg every 12 hours GI Prophylaxis: Protonix. DVT prophylaxis: Xarelto Discharge Planning OT and PT recommending rehab. Wheelchair and L ankle/foot orthosis recommended. Per CM, patient now medicaid approved; SSI pending, then will need to find SNF. Kirsten Fournier January 25, 2017 09:27
[2017-01-25] MEDS: HYDROCORTISONE 1% OINT 30 GM TUBE TOPICAL SCH ×2 (12:32→21:00)
[2017-01-25 20:00] VITALS: BP 145/91; PULSE 85; RESP 22; TEMP 98.5; O2SAT 98
[2017-01-25] MEDS: QUEtiapine FUMARATE 25 MG TAB PO SCH (21:07)
[2017-01-25] MEDS: diphenhydrAMINE HCL 25 MG CAP PO PRN (21:07)
[2017-01-25] MEDS: traZODone HCL 100 MG TAB PO SCH (21:07)
[2017-01-26] MEDS: diphenhydrAMINE HCL 25 MG CAP PO PRN ×2 (06:06→06:33)
[2017-01-26 08:00] VITALS: BP 127/97; PULSE 67; RESP 20; TEMP 97.4; O2SAT 97
[2017-01-26] MEDS: clonazePAM 0.5 MG TAB PO SCH ×2 (08:27→21:15)
[2017-01-26] MEDS: PANTOPRAZOLE SOD 40 MG DELAYED RELEASE TAB PO SCH (08:27)
[2017-01-26] MEDS: DOCUSATE SODIUM 100 MG CAP PO SCH ×2 (08:27→21:14)
[2017-01-26] MEDS: DILTIAZEM-CD 240 MG CAP ER PO SCH (08:27)
[2017-01-26] MEDS: SENNOSIDES 8.6 MG TAB PO SCH (08:27)
[2017-01-26] MEDS: THIAMINE HCL 100 MG TAB PO SCH (08:27)
[2017-01-26] MEDS: metFORMIN HCL 850 MG TAB PO SCH ×2 (08:27→17:22)
[2017-01-26] MEDS: ASPIRIN 81 MG CHEW TAB CHEW SCH (08:28)
[2017-01-26] MEDS: RIVAROXABAN 20 MG TAB PO SCH (08:28)
[2017-01-26] MEDS: CLOTRIMAZOLE 1% CREAM 15 GM TOPICAL SCH ×2 (08:28→21:18)
--- NOTE | 2017-01-26 10:01 | HHI.PR ---
Subjective Remarks Follow-up for hemiparesis status post CVA, left lower extremity DVT, and multiple rashes. Patient again talks about wanting to leave AMA now stating that people are "talking behind my back". I informed patient that he has been progressing with physical therapy. He admits to some itching in his right thigh. Objective Vitals Vital Signs Date Time Temp Pulse Resp B/P Pulse Ox O2 Delivery O2 Flow Rate FiO2 01/26/17 08:00 97.4 67 20 127/97 97 01/25/17 20:00 98.5 85 22 145/91 98 I/O 01/25/17 01/25/17 01/25/17 01/26/17 01/26/17 01/26/17 06:59 14:59 22:59 06:59 14:59 22:59 Intake Total 720 ml 480 ml Output Total 1000 ml 1450 ml 1225 ml Balance -1000 ml -730 ml -745 ml Intake Oral 720 ml 480 ml Output Urine Total 1000 ml 1450 ml 1225 ml # Voids 4 # Bowel Movements 1 0 Objective Remarks Corie CAMARA present for exam. GENERAL: Well-nourished, well developed patient no apparent distress. SKIN: Erythematous plaques and macules to the anterior chest. Rash in L axilla is greatly improved, no longer erythematous. 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 No rashes evident over the legs. CARDIOVASCULAR: Regular rate and rhythm. RESPIRATORY: No accessory muscle use. CTAB. GASTROINTESTINAL: Abdomen soft, non-tender, nondistended. NEUROLOGICAL: Awake and alert. Normal speech. 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 Rash to back is likely contact dermatitis from sheets. There is a rash to his chest with small slightly scaly plaques, which is likely psoriasis as he has a history of this. He's got another rash in the L axilla which is likely candidal. -Benadryl 25 mg po q6h prn pruritus. -Continue Hydrocortisone ointment to chest and back. -Continue Clotrimazole cream to axillary rash. May only need to use Clotrimazole for a few more days as axillary rash has improved rapidly. Right Subacute basal ganglia infarct, with L hemiplegia Aspirin continued Continue PT/OT/ST evaluations X-ray left shoulder which did not indicate any acute abnormality or any separations DVT of the left lower extremity Patient on Xarelto Strep pneumonia meningitis, endocarditis, sepsis: Treated Infectious disease will need to be reconsulted since the patient left the hospital and patient with low-grade fever Completed Penicillin G 24 million units, end date 12/02/16 Blood cultures negative for 5 days, urinalysis clear. Chest x-rays shows mild streaky opacity in the left lung base consistent with scarring Hypertension, blood pressure stable Cardizem 240 mg daily Diabetes mellitus 2, stable Recent A1c 7.1 Continue metformin 850 mg twice daily Sliding scale insulin discontinued. AM Accu-Checks stable and were discontinued. 01/26: Will check a one time bedside BGL today due to hydrocortisone ointment being used over large surface area to assess for any hyperglycemia. Adjustment disorder with depressed mood 01/06/17: Psychiatry reconsulted for depression and SI. Psych note appreciated. Trazodone 100 mg po qhs. Seroquel 50 mg at bedtime Klonopin 0.5 mg every 12 hours GI Prophylaxis: Protonix. DVT prophylaxis: Xarelto Discharge Planning OT and PT recommending rehab. Wheelchair and L ankle/foot orthosis recommended. Per CM, patient now medicaid approved; SSI pending, then will need to find SNF. Kirsten Fournier January 26, 2017 10:01
[2017-01-26] MEDS: HYDROCORTISONE 1% OINT 30 GM TUBE TOPICAL SCH ×2 (13:30→21:25)
[2017-01-26 20:00] VITALS: BP 125/92; PULSE 89; RESP 20; TEMP 98.4; O2SAT 95
[2017-01-26] MEDS: QUEtiapine FUMARATE 25 MG TAB PO SCH (21:14)
[2017-01-26] MEDS: traZODone HCL 100 MG TAB PO SCH (21:14)
[2017-01-27 08:00] VITALS: BP 119/88; PULSE 73; RESP 20; TEMP 96.9; O2SAT 96
--- NOTE | 2017-01-27 10:04 | HHI.PR ---
Subjective Remarks Patient seen and examined today for follow-up on CVA and hemiparesis. Patient states that he started developed some itchy red bumps and rash on his legs, chest and groin. I notified the patient he needs to bathe more often. Objective Vitals Vital Signs Date Time Temp Pulse Resp B/P Pulse Ox O2 Delivery O2 Flow Rate FiO2 01/27/17 08:00 96.9 73 20 119/88 96 01/26/17 20:00 98.4 89 20 125/92 95 I/O 01/26/17 01/26/17 01/26/17 01/27/17 01/27/17 01/27/17 06:59 14:59 22:59 06:59 14:59 22:59 Intake Total 480 ml 1050 ml 240 ml Output Total 1225 ml 900 ml 400 ml 800 ml Balance -745 ml 150 ml -400 ml -560 ml Intake Oral 480 ml 1050 ml 240 ml Output Urine Total 1225 ml 900 ml 400 ml 800 ml # Bowel Movements 0 0 Objective Remarks GENERAL: This is a well-nourished, well-developed patient, in no apparent distress. GENERAL: Well-developed, well-nourished, in no acute distress. alert and orientated HEENT: Head is normocephalic without any lesions or masses noted. Patient does have left-sided facial droop. Eyes: Extraocular muscles are intact. Conjunctivae were clear. NECK: Supple without any masses. Trachea midline no deviation. No JVD, CARDIAC: Regular rhythm, regular rate. S1/S2 are heard. No murmurs gallops or rubs. LUNGS: Clear to auscultation bilaterally. No wheeze, rhonchi or rales. No use of accessory muscles on inspiration or expiration. ABDOMEN: Soft, nontender. Nondistended. Bowel sounds heard in all 4 quadrants. No organomegaly or masses. Negative rebound, negative guarding EXTREMITIES: No edema, pulses are equal bilaterally. No cyanosis or clubbing NEUROLOGY: Mood and affect appear appropriate. Patient able to flex and extend left ankle. Patient is able to move his left upper extremity, he is moving his fingers. Right upper and lower extremity with 5/5 strength in 2+ deep tendon reflexes Urinary Catheter: No Vascular Central Line Catheter: No A/P Assessment and Plan Diffuse papular/pleuritic rash Patient was counseled on improved personal hygiene Start nystatin powder Right Subacute basal ganglia infarct, with L hemiplegia Aspirin continued Continue PT/OT/ST evaluations, patient improving on a daily basis --Xray left shoulder which did not indicate any acute abnormality or any separations DVT of the left lower extremity Patient on Xarelto Strep pneumonia meningitis, endocarditis, sepsis: Treated Infectious disease will need to be reconsulted since the patient left the hospital and patient with low-grade fever Completed Penicillin G 24 million units, end date 12/02/16 Blood cultures negative for 5 days, urinalysis clear, Chest x-rays shows mild streaky opacity in the left lung base consistent with scarring Hypertension, blood pressure stable Cardizem 240 mg daily Diabetes mellitus 2, stable Recent A1c 7.1 Continue metformin 850 mg twice daily Adjustment disorder with depressed mood Psychiatry was reconsulted on 01/06/17 because of increased acute depression and ideation. Medications were adjusted Trazodone 100 mg at bedtime Seroquel 50 mg at bedtime Klonopin 0.5 mg every 12 hours GI Prophylaxis: Protonix. DVT prophylaxis: Xarelto Discharge Planning Case management for discharge planning. Patient has completed antibiotics at this time. Patient still with left hemiplegia. Patient will likely stay in the hospital until able to ambulate home as indicated patient now has Medicaid, however still waiting for social security to be approved for possible rehabilitation placement Josh Taylor January 27, 2017 10:04
[2017-01-27] MEDS: clonazePAM 0.5 MG TAB PO SCH ×2 (10:09→20:33)
[2017-01-27] MEDS: ASPIRIN 81 MG CHEW TAB CHEW SCH (10:09)
[2017-01-27] MEDS: THIAMINE HCL 100 MG TAB PO SCH (10:09)
[2017-01-27] MEDS: metFORMIN HCL 850 MG TAB PO SCH ×2 (10:10→18:24)
[2017-01-27] MEDS: SENNOSIDES 8.6 MG TAB PO SCH (10:10)
[2017-01-27] MEDS: DILTIAZEM-CD 240 MG CAP ER PO SCH (10:10)
[2017-01-27] MEDS: PANTOPRAZOLE SOD 40 MG DELAYED RELEASE TAB PO SCH (10:10)
[2017-01-27] MEDS: RIVAROXABAN 20 MG TAB PO SCH (10:10)
[2017-01-27] MEDS: DOCUSATE SODIUM 100 MG CAP PO SCH ×2 (10:10→20:33)
[2017-01-27] MEDS: NYSTATIN 100,000 U/GM PWD 15 GM BTL TOPICAL SCH ×2 (10:15→20:34)
[2017-01-27 20:00] VITALS: BP 114/71; PULSE 87; RESP 20; TEMP 97.8; O2SAT 95
[2017-01-27] MEDS: QUEtiapine FUMARATE 25 MG TAB PO SCH (20:33)
[2017-01-27] MEDS: traZODone HCL 100 MG TAB PO SCH (20:33)
[2017-01-28 08:55] VITALS: BP 126/90; PULSE 74; RESP 18; TEMP 97.1; O2SAT 99
--- NOTE | 2017-01-28 09:26 | HHI.PR ---
Subjective Remarks Patient seen and examined today for follow-up on CVA, hemiparesis. Patient is improving on a daily basis. Patient indicates that he was evaluated by [facility] yesterday and has been accepted. Objective Vitals Vital Signs Date Time Temp Pulse Resp B/P Pulse Ox O2 Delivery O2 Flow Rate FiO2 01/28/17 08:55 97.1 74 18 126/90 99 01/27/17 20:00 97.8 87 20 114/71 95 I/O 01/27/17 01/27/17 01/27/17 01/28/17 01/28/17 01/28/17 06:59 14:59 22:59 06:59 14:59 22:59 Intake Total 240 ml 1150 ml 240 ml 480 ml Output Total 800 ml 950 ml 850 ml 425 ml Balance -560 ml 200 ml -610 ml 55 ml Intake Oral 240 ml 1150 ml 240 ml 480 ml Output Urine Total 800 ml 950 ml 850 ml 425 ml # Bowel Movements 0 0 0 Objective Remarks GENERAL: This is a well-nourished, well-developed patient, in no apparent distress. GENERAL: Well-developed, well-nourished, in no acute distress. alert and orientated HEENT: Head is normocephalic without any lesions or masses noted. Patient does have left-sided facial droop. Eyes: Extraocular muscles are intact. Conjunctivae were clear. NECK: Supple without any masses. Trachea midline no deviation. No JVD, CARDIAC: Regular rhythm, regular rate. S1/S2 are heard. No murmurs gallops or rubs. LUNGS: Clear to auscultation bilaterally. No wheeze, rhonchi or rales. No use of accessory muscles on inspiration or expiration. ABDOMEN: Soft, nontender. Nondistended. Bowel sounds heard in all 4 quadrants. No organomegaly or masses. Negative rebound, negative guarding EXTREMITIES: No edema, pulses are equal bilaterally. No cyanosis or clubbing NEUROLOGY: Mood and affect appear appropriate. Patient able to flex and extend left ankle. Patient is able to move his left upper extremity, he is moving his fingers. Right upper and lower extremity with 5/5 strength in 2+ deep tendon reflexes Urinary Catheter: No Vascular Central Line Catheter: No A/P Assessment and Plan Diffuse papular/pleuritic rash, improving Patient was counseled on improved personal hygiene Continue nystatin powder Right Subacute basal ganglia infarct, with L hemiplegia Aspirin continued Continue PT/OT/ST evaluations, patient improving on a daily basis --Xray left shoulder which did not indicate any acute abnormality or any separations DVT of the left lower extremity Patient on Xarelto Strep pneumonia meningitis, endocarditis, sepsis: Treated Infectious disease will need to be reconsulted since the patient left the hospital and patient with low-grade fever Completed Penicillin G 24 million units, end date 12/02/16 Blood cultures negative for 5 days, urinalysis clear, Chest x-rays shows mild streaky opacity in the left lung base consistent with scarring Hypertension, blood pressure stable Cardizem 240 mg daily Hyperlipidemia Last LDL was unable to be calculated. We'll check fasting lipid panel Diabetes mellitus 2, stable Recent A1c 7.0, will follow-up A1c Continue metformin 850 mg twice daily Adjustment disorder with depressed mood Psychiatry was reconsulted on 01/06/17 because of increased acute depression and ideation. Medications were adjusted Trazodone 100 mg at bedtime Seroquel 50 mg at bedtime Klonopin 0.5 mg every 12 hours GI Prophylaxis: Protonix. DVT prophylaxis: Xarelto Discharge Planning Case management for discharge planning. Discussed with [facility] who indicates that the patient has been accepted, however they do not have a [facility] bed at this time. Likely will be able to have patient admitted to them next Thursday, February 04, 2017 Josh Taylor January 28, 2017 09:26
[2017-01-28] MEDS: DOCUSATE SODIUM 100 MG CAP PO SCH ×2 (09:41→20:49)
[2017-01-28] MEDS: ASPIRIN 81 MG CHEW TAB CHEW SCH (09:42)
[2017-01-28] MEDS: THIAMINE HCL 100 MG TAB PO SCH (09:42)
[2017-01-28] MEDS: RIVAROXABAN 20 MG TAB PO SCH (09:42)
[2017-01-28] MEDS: SENNOSIDES 8.6 MG TAB PO SCH (09:42)
[2017-01-28] MEDS: DILTIAZEM-CD 240 MG CAP ER PO SCH (09:42)
[2017-01-28] MEDS: metFORMIN HCL 850 MG TAB PO SCH ×2 (09:42→18:06)
[2017-01-28] MEDS: clonazePAM 0.5 MG TAB PO SCH ×2 (09:42→20:49)
[2017-01-28] MEDS: PANTOPRAZOLE SOD 40 MG DELAYED RELEASE TAB PO SCH (09:42)
[2017-01-28] MEDS: NYSTATIN 100,000 U/GM PWD 15 GM BTL TOPICAL SCH ×2 (09:43→20:50)
[2017-01-28 20:00] VITALS: BP 151/93; PULSE 82; RESP 18; TEMP 98; O2SAT 97
[2017-01-28] MEDS: traZODone HCL 100 MG TAB PO SCH (20:49)
[2017-01-28] MEDS: QUEtiapine FUMARATE 25 MG TAB PO SCH (20:49)
[2017-01-29 07:15] VITALS: BP 120/86; PULSE 86; RESP 18; TEMP 98; O2SAT 95
[2017-01-29 08:14] LABS: BASOPHIL # 0.1 TH/MM3 (0-0.2); BASOPHIL % 0.8 % (0.0-2.0); EOSINOPHIL # 0.7 TH/MM3 (0-0.4); EOSINOPHIL % 7.7 % (0.0-4.0); HEMATOCRIT 38.3 % (39.0-51.0); HEMO FLAGS DIFF FINAL; LYMPH % 29.6 % (9.0-44.0); LYMPHOCYTE # 2.8 TH/MM3 (1.0-4.8); MEAN CELL VOLUME 95.2 FL (80.0-100.0); MEAN CORPUSCULAR HEMOGLOBIN 31.5 PG (27.0-34.0); MEAN CORPUSCULAR HGB CONC 33.1 % (32.0-36.0); MONO % 8.5 % (0.0-8.0); NEUT % 53.4 % (16.0-70.0); PLATELET COUNT 363 TH/MM3 (150-450); RED BLOOD COUNT 4.02 MIL/MM3 (4.50-5.90); RED CELL DISTRIBUTION WIDTH 13.1 % (11.6-17.2); WHITE BLOOD COUNT 9.4 TH/MM3 (4.0-11.0)
[2017-01-29 08:24] LABS: CHLORIDE 104 MEQ/L (98-107); POTASSIUM 4.2 MEQ/L (3.5-5.1); SODIUM (NA) 141 MEQ/L (136-145)
[2017-01-29 08:27] LABS: ANION GAP 9 MEQ/L (5-15); BICARBONATE 28.5 MEQ/L (21.0-32.0); BLOOD UREA NITROGEN 10 MG/DL (7-18); MAGNESIUM 1.9 MG/DL (1.5-2.5)
[2017-01-29 08:30] LABS: GLOMERULAR FILTRATION RATE 130 ML/MIN (>89)
[2017-01-29] MEDS: ASPIRIN 81 MG CHEW TAB CHEW SCH (09:05)
[2017-01-29] MEDS: clonazePAM 0.5 MG TAB PO SCH ×2 (09:05→20:41)
[2017-01-29] MEDS: PANTOPRAZOLE SOD 40 MG DELAYED RELEASE TAB PO SCH (09:05)
[2017-01-29] MEDS: DILTIAZEM-CD 240 MG CAP ER PO SCH (09:05)
[2017-01-29] MEDS: DOCUSATE SODIUM 100 MG CAP PO SCH ×2 (09:05→20:41)
[2017-01-29] MEDS: metFORMIN HCL 850 MG TAB PO SCH ×2 (09:05→17:53)
[2017-01-29] MEDS: SENNOSIDES 8.6 MG TAB PO SCH (09:05)
[2017-01-29] MEDS: THIAMINE HCL 100 MG TAB PO SCH (09:05)
[2017-01-29] MEDS: NYSTATIN 100,000 U/GM PWD 15 GM BTL TOPICAL SCH ×2 (09:06→20:41)
[2017-01-29] MEDS: RIVAROXABAN 20 MG TAB PO SCH (09:06)
[2017-01-29 10:05] LABS: HDL CHOLESTEROL 52.7 MG/DL (40.0-60.0); LDL CHOLESTEROL 128 MG/DL (0-99)
--- NOTE | 2017-01-29 11:22 | HHI.PR ---
Subjective Remarks Patient seen and examined today for follow-up on CVA, hemiparesis. Patient was witnessed walking in the [place] with physical therapy. He walked around the entire floor with right arm melyssa-walker Objective Vitals Vital Signs Date Time Temp Pulse Resp B/P Pulse Ox O2 Delivery O2 Flow Rate FiO2 01/28/17 20:00 98.0 82 18 151/93 97 I/O 01/28/17 01/28/17 01/28/17 01/29/17 01/29/17 01/29/17 07:00 15:00 23:00 07:00 15:00 23:00 Intake Total 480 ml 750 ml 480 ml Output Total 425 ml 1250 ml 200 ml Balance 55 ml 750 ml -770 ml -200 ml Intake Oral 480 ml 750 ml 480 ml Output Urine Total 425 ml 1250 ml 200 ml # Voids 3 # Bowel Movements 0 1 0 Result Diagram: 01/29/17 0800 01/29/17 0800 Objective Remarks GENERAL: This is a well-nourished, well-developed patient, in no apparent distress. GENERAL: Well-developed, well-nourished, in no acute distress. alert and orientated HEENT: Head is normocephalic without any lesions or masses noted. Patient does have left-sided facial droop. Eyes: Extraocular muscles are intact. Conjunctivae were clear. NECK: Supple without any masses. Trachea midline no deviation. No JVD, CARDIAC: Regular rhythm, regular rate. S1/S2 are heard. No murmurs gallops or rubs. LUNGS: Clear to auscultation bilaterally. No wheeze, rhonchi or rales. No use of accessory muscles on inspiration or expiration. ABDOMEN: Soft, nontender. Nondistended. Bowel sounds heard in all 4 quadrants. No organomegaly or masses. Negative rebound, negative guarding EXTREMITIES: No edema, pulses are equal bilaterally. No cyanosis or clubbing NEUROLOGY: Mood and affect appear appropriate. Patient able to flex and extend left ankle. Patient is able to move his left upper extremity, he is moving his fingers. Right upper and lower extremity with 5/5 strength in 2+ deep tendon reflexes Urinary Catheter: No Vascular Central Line Catheter: No A/P Assessment and Plan Right Subacute basal ganglia infarct, with L hemiplegia Aspirin continued Continue PT/OT/ST evaluations, patient improving on a daily basis --Xray left shoulder which did not indicate any acute abnormality or any separations Diffuse papular/pleuritic rash, improving Patient was counseled on improved personal hygiene Continue nystatin powder DVT of the left lower extremity Patient on Xarelto Strep pneumonia meningitis, endocarditis, sepsis: Treated Infectious disease will need to be reconsulted since the patient left the hospital and patient with low-grade fever Completed Penicillin G 24 million units, end date 12/02/16 Blood cultures negative for 5 days, urinalysis clear, Chest x-rays shows mild streaky opacity in the left lung base consistent with scarring Hypertension, blood pressure stable Cardizem 240 mg daily Hyperlipidemia LDL 128 Start Lipitor 20 mg at bedtime, continue monitor every 68 weeks Diabetes mellitus 2, stable Recent A1c 7.0, awaiting follow-up A1c Continue metformin 850 mg twice daily Adjustment disorder with depressed mood Psychiatry was reconsulted on 01/06/17 because of increased acute depression and ideation. Medications were adjusted Trazodone 100 mg at bedtime Seroquel 50 mg at bedtime Klonopin 0.5 mg every 12 hours GI Prophylaxis: Protonix. DVT prophylaxis: Xarelto Discharge Planning Case management for discharge planning. Discussed with [facility] who indicates that the patient has been accepted, however they do not have a [facility] bed at this time. Likely will be able to have patient admitted to them next Thursday, February 04, 2017 Josh Taylor January 29, 2017 11:22
[2017-01-29 14:49] LABS: HEMOGLOBIN LA1C 1.9 %; HEMOGLOBIN P3 5.1 %
[2017-01-29 20:00] VITALS: BP 126/77; PULSE 86; RESP 20; TEMP 98.7; O2SAT 98
[2017-01-29] MEDS: traZODone HCL 100 MG TAB PO SCH (20:40)
[2017-01-29] MEDS: QUEtiapine FUMARATE 25 MG TAB PO SCH (20:41)
[2017-01-29] MEDS: ATORVASTATIN 20 MG TAB PO SCH (20:41)
[2017-01-30 08:00] VITALS: BP 122/76; PULSE 84; RESP 18; TEMP 97.6; O2SAT 95
[2017-01-30] MEDS: clonazePAM 0.5 MG TAB PO SCH ×2 (09:48→20:36)
[2017-01-30] MEDS: PANTOPRAZOLE SOD 40 MG DELAYED RELEASE TAB PO SCH (09:48)
[2017-01-30] MEDS: DOCUSATE SODIUM 100 MG CAP PO SCH ×2 (09:48→20:36)
[2017-01-30] MEDS: ASPIRIN 81 MG CHEW TAB CHEW SCH (09:48)
[2017-01-30] MEDS: DILTIAZEM-CD 240 MG CAP ER PO SCH (09:48)
[2017-01-30] MEDS: metFORMIN HCL 850 MG TAB PO SCH ×2 (09:48→16:32)
[2017-01-30] MEDS: THIAMINE HCL 100 MG TAB PO SCH (09:48)
[2017-01-30] MEDS: RIVAROXABAN 20 MG TAB PO SCH (09:48)
[2017-01-30] MEDS: SENNOSIDES 8.6 MG TAB PO SCH (09:48)
[2017-01-30] MEDS: NYSTATIN 100,000 U/GM PWD 15 GM BTL TOPICAL SCH ×2 (09:49→20:37)
--- NOTE | 2017-01-30 11:13 | HHI.PR ---
Subjective Remarks Patient seen and examined today for follow-up on CVA and hemiparesis. Patient denies any new complaints. Still inquiring about if he can have pizza and chicken fingers to eat. Discussed with nursing staff, physical therapy. Patient cannot ambulate without physical therapy present, however patient can be transitioned to chair, wheelchair, bedside commode with nursing staff. Objective Vitals Vital Signs Date Time Temp Pulse Resp B/P Pulse Ox O2 Delivery O2 Flow Rate FiO2 01/30/17 08:00 97.6 84 18 122/76 95 01/29/17 20:00 98.7 86 20 126/77 98 I/O 01/29/17 01/29/17 01/29/17 01/30/17 01/30/17 01/30/17 07:00 15:00 23:00 07:00 15:00 23:00 Intake Total 480 ml 520 ml 480 ml 360 ml Output Total 1250 ml 800 ml 975 ml 575 ml Balance -770 ml -280 ml -495 ml -215 ml Intake Oral 480 ml 520 ml 480 ml 360 ml Output Urine Total 1250 ml 800 ml 975 ml 575 ml # Bowel Movements 0 0 Result Diagram: 01/29/17 0801/29/17 0800 Objective Remarks GENERAL: This is a well-nourished, well-developed patient, in no apparent distress. GENERAL: Well-developed, well-nourished, in no acute distress. alert and orientated HEENT: Head is normocephalic without any lesions or masses noted. Patient does have left-sided facial droop. Eyes: Extraocular muscles are intact. Conjunctivae were clear. NECK: Supple without any masses. Trachea midline no deviation. No JVD, CARDIAC: Regular rhythm, regular rate. S1/S2 are heard. No murmurs gallops or rubs. LUNGS: Clear to auscultation bilaterally. No wheeze, rhonchi or rales. No use of accessory muscles on inspiration or expiration. ABDOMEN: Soft, nontender. Nondistended. Bowel sounds heard in all 4 quadrants. No organomegaly or masses. Negative rebound, negative guarding EXTREMITIES: No edema, pulses are equal bilaterally. No cyanosis or clubbing NEUROLOGY: Mood and affect appear appropriate. Patient able to flex and extend left ankle. Patient is able to move his left upper extremity, he is moving his fingers. Right upper and lower extremity with 5/5 strength in 2+ deep tendon reflexes Urinary Catheter: No Vascular Central Line Catheter: No A/P Assessment and Plan Right Subacute basal ganglia infarct, with L hemiplegia Aspirin continued Continue PT/OT/ST evaluations, patient improving on a daily basis --Xray left shoulder which did not indicate any acute abnormality or any separations Diffuse papular/pleuritic rash, improving Patient was counseled on improved personal hygiene Continue nystatin powder DVT of the left lower extremity Patient on Xarelto Strep pneumonia meningitis, endocarditis, sepsis: Treated Infectious disease will need to be reconsulted since the patient left the hospital and patient with low-grade fever Completed Penicillin G 24 million units, end date 12/02/16 Blood cultures negative for 5 days, urinalysis clear, Chest x-rays shows mild streaky opacity in the left lung base consistent with scarring Hypertension, blood pressure stable Cardizem 240 mg daily Hyperlipidemia LDL 128 Lipitor 20 mg at bedtime, continue monitor every 68 weeks Diabetes mellitus 2, stable Recent A1c 7.0, follow-up A1c 5.9 Continue metformin 850 mg twice daily Adjustment disorder with depressed mood Psychiatry was reconsulted on 01/06/17 because of increased acute depression and ideation. Medications were adjusted Trazodone 100 mg at bedtime Seroquel 50 mg at bedtime Klonopin 0.5 mg every 12 hours GI Prophylaxis: Protonix. DVT prophylaxis: Xarelto Discharge Planning Case management for discharge planning. Discussed with [facility] who indicates that the patient has been accepted, however they do not have a [facility] bed at this time. Likely will be able to have patient admitted to them next Thursday, February 04, 2017 Josh Taylor January 30, 2017 11:13
[2017-01-30 20:00] VITALS: BP 140/81; PULSE 87; RESP 20; TEMP 99.3; O2SAT 97
[2017-01-30] MEDS: traZODone HCL 100 MG TAB PO SCH (20:36)
[2017-01-30] MEDS: QUEtiapine FUMARATE 25 MG TAB PO SCH (20:36)
[2017-01-30] MEDS: ATORVASTATIN 20 MG TAB PO SCH (20:36)
[2017-01-31 08:00] VITALS: BP 117/75; PULSE 70; RESP 18; TEMP 97.4; O2SAT 96
--- NOTE | 2017-01-31 09:24 | HHI.PR ---
Subjective Remarks Patient seen and examined today in follow-up for CVA and hemiparesis. Patient is in good spirits. He is doing well without any new complaints. Objective Vitals Vital Signs Date Time Temp Pulse Resp B/P Pulse Ox O2 Delivery O2 Flow Rate FiO2 01/31/17 08:00 97.4 70 18 117/75 96 01/30/17 20:00 99.3 87 20 140/81 97 I/O 01/30/17 01/30/17 01/30/17 01/31/17 01/31/17 01/31/17 07:00 15:00 23:00 07:00 15:00 23:00 Intake Total 360 ml 1610 ml 480 ml 480 ml Output Total 575 ml 350 ml 950 ml 600 ml Balance -215 ml 1260 ml -470 ml -120 ml Intake Oral 360 ml 1610 ml 480 ml 480 ml Output Urine Total 575 ml 350 ml 950 ml 600 ml # Voids 1 # Bowel Movements 2 Result Diagram: 01/29/17 0800 01/29/17 0800 Objective Remarks GENERAL: This is a well-nourished, well-developed patient, in no apparent distress. GENERAL: Well-developed, well-nourished, in no acute distress. alert and orientated HEENT: Head is normocephalic without any lesions or masses noted. Patient does have left-sided facial droop. Eyes: Extraocular muscles are intact. Conjunctivae were clear. NECK: Supple without any masses. Trachea midline no deviation. No JVD, CARDIAC: Regular rhythm, regular rate. S1/S2 are heard. No murmurs gallops or rubs. LUNGS: Clear to auscultation bilaterally. No wheeze, rhonchi or rales. No use of accessory muscles on inspiration or expiration. ABDOMEN: Soft, nontender. Nondistended. Bowel sounds heard in all 4 quadrants. No organomegaly or masses. Negative rebound, negative guarding EXTREMITIES: No edema, pulses are equal bilaterally. No cyanosis or clubbing NEUROLOGY: Mood and affect appear appropriate. Patient able to flex and extend left ankle. Patient is able to move his left upper extremity, he is moving his fingers. Right upper and lower extremity with 5/5 strength in 2+ deep tendon reflexes Urinary Catheter: No Vascular Central Line Catheter: No A/P Assessment and Plan Right Subacute basal ganglia infarct, with L hemiplegia Aspirin continued Continue PT/OT/ST evaluations, patient improving on a daily basis --Xray left shoulder which did not indicate any acute abnormality or any separations Diffuse papular/pleuritic rash, improving Patient was counseled on improved personal hygiene Continue nystatin powder DVT of the left lower extremity, on treatment Patient on Xarelto Strep pneumonia meningitis, endocarditis, sepsis: Treated Infectious disease will need to be reconsulted since the patient left the hospital and patient with low-grade fever Completed Penicillin G 24 million units, end date 12/02/16 Blood cultures negative for 5 days, urinalysis clear, Chest x-rays shows mild streaky opacity in the left lung base consistent with scarring Hypertension, blood pressure stable Cardizem 240 mg daily Hyperlipidemia LDL 128 Lipitor 20 mg at bedtime, continue monitor every 68 weeks Diabetes mellitus 2, stable Recent A1c 7.0, follow-up A1c 5.9 Continue metformin 850 mg twice daily Adjustment disorder with depressed mood Psychiatry was reconsulted on 01/06/17 because of increased acute depression and ideation. Medications were adjusted Trazodone 100 mg at bedtime Seroquel 50 mg at bedtime Klonopin 0.5 mg every 12 hours GI Prophylaxis: Protonix. DVT prophylaxis: Xarelto Discharge Planning Case management for discharge planning. Discussed with [facility] who indicates that the patient has been accepted, however they do not have a [facility] bed at this time. Likely will be able to have patient admitted to them next Thursday, February 04, 2017 Josh Taylor January 31, 2017 09:24
[2017-01-31] MEDS: DOCUSATE SODIUM 100 MG CAP PO SCH ×2 (10:00→20:00)
[2017-01-31] MEDS: THIAMINE HCL 100 MG TAB PO SCH (10:01)
[2017-01-31] MEDS: SENNOSIDES 8.6 MG TAB PO SCH (10:01)
[2017-01-31] MEDS: clonazePAM 0.5 MG TAB PO SCH ×2 (10:01→20:00)
[2017-01-31] MEDS: RIVAROXABAN 20 MG TAB PO SCH (10:01)
[2017-01-31] MEDS: metFORMIN HCL 850 MG TAB PO SCH ×2 (10:02→18:36)
[2017-01-31] MEDS: ASPIRIN 81 MG CHEW TAB CHEW SCH (10:02)
[2017-01-31] MEDS: PANTOPRAZOLE SOD 40 MG DELAYED RELEASE TAB PO SCH (10:02)
[2017-01-31] MEDS: DILTIAZEM-CD 240 MG CAP ER PO SCH (10:02)
[2017-01-31] MEDS: NYSTATIN 100,000 U/GM PWD 15 GM BTL TOPICAL SCH ×2 (10:04→20:00)
[2017-01-31] MEDS: QUEtiapine FUMARATE 25 MG TAB PO SCH (19:59)
[2017-01-31 20:00] VITALS: BP 139/88; PULSE 80; RESP 20; TEMP 97.1; O2SAT 97
[2017-01-31] MEDS: ATORVASTATIN 20 MG TAB PO SCH (20:00)
[2017-01-31] MEDS: traZODone HCL 100 MG TAB PO SCH (20:00)
[2017-02-01 08:46] VITALS: BP 125/78; PULSE 70; RESP 16; TEMP 98.3; O2SAT 96
[2017-02-01] MEDS: NYSTATIN 100,000 U/GM PWD 15 GM BTL TOPICAL SCH ×2 (09:00→20:14)
[2017-02-01] MEDS: DOCUSATE SODIUM 100 MG CAP PO SCH ×2 (09:27→20:11)
[2017-02-01] MEDS: THIAMINE HCL 100 MG TAB PO SCH (09:27)
[2017-02-01] MEDS: PANTOPRAZOLE SOD 40 MG DELAYED RELEASE TAB PO SCH (09:27)
[2017-02-01] MEDS: SENNOSIDES 8.6 MG TAB PO SCH (09:27)
[2017-02-01] MEDS: metFORMIN HCL 850 MG TAB PO SCH ×2 (09:27→18:06)
[2017-02-01] MEDS: RIVAROXABAN 20 MG TAB PO SCH (09:27)
[2017-02-01] MEDS: DILTIAZEM-CD 240 MG CAP ER PO SCH (09:27)
[2017-02-01] MEDS: clonazePAM 0.5 MG TAB PO SCH ×2 (09:28→20:12)
[2017-02-01] MEDS: ASPIRIN 81 MG CHEW TAB CHEW SCH (09:28)
--- NOTE | 2017-02-01 12:51 | HHI.PR ---
Subjective Remarks Patient seen and examined today and follow-up on CVA and hemiparesis. Patient lying in bed, resting comfortably. Denies any new complaints. Objective Vitals Vital Signs Date Time Temp Pulse Resp B/P Pulse Ox O2 Delivery O2 Flow Rate FiO2 02/01/17 08:46 98.3 70 16 125/78 96 01/31/17 20:00 97.1 80 20 139/88 97 I/O 01/31/17 01/31/17 01/31/17 02/01/17 02/01/17 02/01/17 07:00 15:00 23:00 07:00 15:00 23:00 Intake Total 480 ml 680 ml Output Total 600 ml 1100 ml 1100 ml 400 ml Balance -120 ml -1100 ml -420 ml -400 ml Intake Oral 480 ml 680 ml Output Urine Total 600 ml 1100 ml 1100 ml 400 ml # Bowel Movements 1 0 Result Diagram: 01/29/17 0800 01/29/17 0800 Objective Remarks GENERAL: This is a well-nourished, well-developed patient, in no apparent distress. GENERAL: Well-developed, well-nourished, in no acute distress. alert and orientated HEENT: Head is normocephalic without any lesions or masses noted. Patient does have left-sided facial droop. Eyes: Extraocular muscles are intact. Conjunctivae were clear. NECK: Supple without any masses. Trachea midline no deviation. No JVD, CARDIAC: Regular rhythm, regular rate. S1/S2 are heard. No murmurs gallops or rubs. LUNGS: Clear to auscultation bilaterally. No wheeze, rhonchi or rales. No use of accessory muscles on inspiration or expiration. ABDOMEN: Soft, nontender. Nondistended. Bowel sounds heard in all 4 quadrants. No organomegaly or masses. Negative rebound, negative guarding EXTREMITIES: No edema, pulses are equal bilaterally. No cyanosis or clubbing NEUROLOGY: Mood and affect appear appropriate. Patient able to flex and extend left ankle. Patient is able to move his left upper extremity, he is moving his fingers. Right upper and lower extremity with 5/5 strength in 2+ deep tendon reflexes Urinary Catheter: No Vascular Central Line Catheter: No A/P Assessment and Plan Right Subacute basal ganglia infarct, with L hemiplegia Aspirin continued Continue PT/OT/ST evaluations, patient improving on a daily basis --Xray left shoulder which did not indicate any acute abnormality or any separations Diffuse papular/pleuritic rash, improving Patient was counseled on improved personal hygiene Continue nystatin powder DVT of the left lower extremity, on treatment Patient on Xarelto Strep pneumonia meningitis, endocarditis, sepsis: Treated Infectious disease will need to be reconsulted since the patient left the hospital and patient with low-grade fever Completed Penicillin G 24 million units, end date 12/02/16 Blood cultures negative for 5 days, urinalysis clear, Chest x-rays shows mild streaky opacity in the left lung base consistent with scarring Hypertension, blood pressure stable Cardizem 240 mg daily Hyperlipidemia LDL 128 Lipitor 20 mg at bedtime, continue monitor every 68 weeks Diabetes mellitus 2, stable Recent A1c 7.0, follow-up A1c 5.9 Continue metformin 850 mg twice daily Adjustment disorder with depressed mood Psychiatry was reconsulted on 01/06/17 because of increased acute depression and ideation. Medications were adjusted Trazodone 100 mg at bedtime Seroquel 50 mg at bedtime Klonopin 0.5 mg every 12 hours GI Prophylaxis: Protonix. DVT prophylaxis: Xarelto Discharge Planning Case management for discharge planning. Discussed with [facility] who indicates that the patient has been accepted, however they do not have a [facility] bed at this time. Likely will be able to have patient admitted to them next Thursday, February 04, 2017 Josh Taylor February 01, 2017 12:51
[2017-02-01 20:00] VITALS: BP 115/91; PULSE 90; RESP 20; TEMP 98.4; O2SAT 97
[2017-02-01] MEDS: ATORVASTATIN 20 MG TAB PO SCH (20:11)
[2017-02-01] MEDS: QUEtiapine FUMARATE 25 MG TAB PO SCH (20:12)
[2017-02-01] MEDS: traZODone HCL 100 MG TAB PO SCH (20:12)
[2017-02-02] MEDS: NYSTATIN 100,000 U/GM PWD 15 GM BTL TOPICAL SCH ×2 (09:00→20:55)
[2017-02-02 09:59] VITALS: BP 130/96; PULSE 99; RESP 20; TEMP 99.1; O2SAT 95
[2017-02-02] MEDS: RIVAROXABAN 20 MG TAB PO SCH (10:04)
[2017-02-02] MEDS: SENNOSIDES 8.6 MG TAB PO SCH (10:04)
[2017-02-02] MEDS: DILTIAZEM-CD 240 MG CAP ER PO SCH (10:04)
[2017-02-02] MEDS: THIAMINE HCL 100 MG TAB PO SCH (10:04)
[2017-02-02] MEDS: ASPIRIN 81 MG CHEW TAB CHEW SCH (10:04)
[2017-02-02] MEDS: DOCUSATE SODIUM 100 MG CAP PO SCH ×2 (10:05→20:54)
[2017-02-02] MEDS: metFORMIN HCL 850 MG TAB PO SCH ×2 (10:05→17:49)
[2017-02-02] MEDS: PANTOPRAZOLE SOD 40 MG DELAYED RELEASE TAB PO SCH (10:05)
[2017-02-02] MEDS: clonazePAM 0.5 MG TAB PO SCH ×2 (10:05→20:54)
--- NOTE | 2017-02-02 10:16 | HHI.PR ---
Subjective Remarks Patient seen and examined today for follow-up on CVA, hemiparesis. Patient admits periods. Denies any new complaints. Would Like to get up and walk today. Objective Vitals Vital Signs Date Time Temp Pulse Resp B/P Pulse Ox O2 Delivery O2 Flow Rate FiO2 02/02/17 09:59 99.1 99 20 130/96 95 02/01/17 20:00 98.4 90 20 115/91 97 I/O 02/01/17 02/01/17 02/01/17 02/02/17 02/02/17 02/02/17 07:00 15:00 23:00 07:00 15:00 23:00 Intake Total 680 ml 1480 ml 240 ml Output Total 1100 ml 400 ml 550 ml 1000 ml 400 ml Balance -420 ml -400 ml 930 ml -760 ml -400 ml Intake Oral 680 ml 1480 ml 240 ml Output Urine Total 1100 ml 400 ml 550 ml 1000 ml 400 ml # Voids 3 # Bowel Movements 0 0 Result Diagram: 01/29/17 0800 01/29/17 08 Objective Remarks GENERAL: This is a well-nourished, well-developed patient, in no apparent distress. GENERAL: Well-developed, well-nourished, in no acute distress. alert and orientated HEENT: Head is normocephalic without any lesions or masses noted. Patient does have left-sided facial droop. Eyes: Extraocular muscles are intact. Conjunctivae were clear. NECK: Supple without any masses. Trachea midline no deviation. No JVD, CARDIAC: Regular rhythm, regular rate. S1/S2 are heard. No murmurs gallops or rubs. LUNGS: Clear to auscultation bilaterally. No wheeze, rhonchi or rales. No use of accessory muscles on inspiration or expiration. ABDOMEN: Soft, nontender. Nondistended. Bowel sounds heard in all 4 quadrants. No organomegaly or masses. Negative rebound, negative guarding EXTREMITIES: No edema, pulses are equal bilaterally. No cyanosis or clubbing NEUROLOGY: Mood and affect appear appropriate. Patient able to flex and extend left ankle. Patient is able to move his left upper extremity, he is moving his fingers. Right upper and lower extremity with 5/5 strength in 2+ deep tendon reflexes Urinary Catheter: No Vascular Central Line Catheter: No A/P Assessment and Plan Right Subacute basal ganglia infarct, with L hemiplegia Aspirin continued Continue PT/OT/ST evaluations, patient improving on a daily basis --Xray left shoulder which did not indicate any acute abnormality or any separations Diffuse papular/pleuritic rash, improving Patient was counseled on improved personal hygiene Continue nystatin powder DVT of the left lower extremity, on treatment Patient on Xarelto Strep pneumonia meningitis, endocarditis, sepsis: Treated Infectious disease will need to be reconsulted since the patient left the hospital and patient with low-grade fever Completed Penicillin G 24 million units, end date 12/02/16 Blood cultures negative for 5 days, urinalysis clear, Chest x-rays shows mild streaky opacity in the left lung base consistent with scarring Hypertension, blood pressure stable Cardizem 240 mg daily Hyperlipidemia LDL 128 Lipitor 20 mg at bedtime, continue monitor every 68 weeks Diabetes mellitus 2, stable Recent A1c 7.0, follow-up A1c 5.9 Continue metformin 850 mg twice daily Adjustment disorder with depressed mood Psychiatry was reconsulted on 01/06/17 because of increased acute depression and ideation. Medications were adjusted Trazodone 100 mg at bedtime Seroquel 50 mg at bedtime Klonopin 0.5 mg every 12 hours GI Prophylaxis: Protonix. DVT prophylaxis: Xarelto Discharge Planning Case management for discharge planning. Discussed with [facility] who indicates that the patient has been accepted, however they do not have a [facility] bed at this time. Likely will be able to have patient admitted to them next Thursday, February 04, 2017 Josh Taylor February 02, 2017 10:16
[2017-02-02 20:00] VITALS: BP 121/82; PULSE 80; RESP 20; TEMP 98.1; O2SAT 95
[2017-02-02] MEDS: traZODone HCL 100 MG TAB PO SCH (20:54)
[2017-02-02] MEDS: QUEtiapine FUMARATE 25 MG TAB PO SCH (20:54)
[2017-02-02] MEDS: ATORVASTATIN 20 MG TAB PO SCH (20:57)
[2017-02-03 07:30] VITALS: BP 140/86; PULSE 66; RESP 14; TEMP 98.3; O2SAT 97
[2017-02-03] MEDS: DOCUSATE SODIUM 100 MG CAP PO SCH ×2 (08:32→20:44)
[2017-02-03] MEDS: PANTOPRAZOLE SOD 40 MG DELAYED RELEASE TAB PO SCH (08:32)
[2017-02-03] MEDS: RIVAROXABAN 20 MG TAB PO SCH (08:32)
[2017-02-03] MEDS: metFORMIN HCL 850 MG TAB PO SCH ×2 (08:32→16:48)
[2017-02-03] MEDS: ASPIRIN 81 MG CHEW TAB CHEW SCH (08:32)
[2017-02-03] MEDS: clonazePAM 0.5 MG TAB PO SCH ×2 (08:32→20:45)
[2017-02-03] MEDS: THIAMINE HCL 100 MG TAB PO SCH (08:32)
[2017-02-03] MEDS: DILTIAZEM-CD 240 MG CAP ER PO SCH (08:32)
[2017-02-03] MEDS: SENNOSIDES 8.6 MG TAB PO SCH (08:32)
[2017-02-03] MEDS: NYSTATIN 100,000 U/GM PWD 15 GM BTL TOPICAL SCH ×2 (08:35→20:45)
--- NOTE | 2017-02-03 12:41 | HHI.PR ---
Subjective Remarks Follow-up for CVA, hemiparesis, left lower extremity DVT. Patient is sitting in wheelchair; states he is waiting for someone to help him get back into bed. 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 Objective Vitals Vital Signs Date Time Temp Pulse Resp B/P Pulse Ox O2 Delivery O2 Flow Rate FiO2 02/02/17 20:00 98.1 80 20 121/82 95 I/O 02/02/17 02/02/17 02/02/17 02/03/17 02/03/17 02/03/17 07:00 15:00 23:00 07:00 15:00 23:00 Intake Total 240 ml 240 ml 480 ml 240 ml Output Total 1000 ml 800 ml 725 ml 525 ml Balance -760 ml -560 ml -245 ml -285 ml Intake Oral 240 ml 240 ml 480 ml 240 ml Output Urine Total 1000 ml 800 ml 725 ml 525 ml # Bowel Movements 0 Objective Remarks GENERAL: Well-nourished, well developed patient no apparent distress. SKIN: Erythematous plaques and macules to the anterior chest improved. CARDIOVASCULAR: Regular rate and rhythm. RESPIRATORY: No accessory muscle use. CTAB. NEUROLOGICAL: Awake and alert. Normal speech. 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 Rash to back is likely contact dermatitis from sheets. There is a rash to his chest with small slightly scaly plaques, which is likely psoriasis as he has a history of this. He's got another rash in the L axilla which is likely candidal. -Benadryl 25 mg po q6h prn pruritus. -S/p Hydrocortisone ointment to chest and back. -S/p Clotrimazole cream to axillary rash. -Continue Nystatin powder. Right Subacute basal ganglia infarct, with L hemiplegia Aspirin continued Continue PT/OT/ST evaluations X-ray left shoulder which did not indicate any acute abnormality or any separations DVT of the left lower extremity Patient on Xarelto Strep pneumonia meningitis, endocarditis, sepsis: Treated Infectious disease will need to be reconsulted since the patient left the hospital and patient with low-grade fever Completed Penicillin G 24 million units, end date 12/02/16 Blood cultures negative for 5 days, urinalysis clear. Chest x-rays shows mild streaky opacity in the left lung base consistent with scarring Hypertension, blood pressure stable Cardizem 240 mg daily Diabetes mellitus 2, stable Recent A1c 7.1 Continue metformin 850 mg twice daily Hyperlipidemia LDL 128 Lipitor 20 mg at bedtime, continue to monitor every 68 weeks Adjustment disorder with depressed mood 01/06/17: Psychiatry reconsulted for depression and SI. Psych note appreciated. Trazodone 100 mg po qhs. Seroquel 50 mg at bedtime Klonopin 0.5 mg every 12 hours GI Prophylaxis: Protonix. DVT prophylaxis: Xarelto Discharge Planning OT and PT recommending rehab. Wheelchair and L ankle/foot orthosis recommended. Per CM, patient now medicaid approved; SSI pending, then will need to find SNF. Patient was [facility] by [facility] for [facility]a bed and was approved for bed, possibly available 02/04/17. I spoke with [facility], decision is pending. Kirsten Fournier February 03, 2017 12:41
[2017-02-03 20:00] VITALS: BP 133/90; PULSE 86; RESP 21; TEMP 98.1; O2SAT 96
[2017-02-03] MEDS: traZODone HCL 100 MG TAB PO SCH (20:44)
[2017-02-03] MEDS: ATORVASTATIN 20 MG TAB PO SCH (20:45)
[2017-02-03] MEDS: QUEtiapine FUMARATE 25 MG TAB PO SCH (20:45)
[2017-02-04 08:00] VITALS: BP 121/83; PULSE 73; RESP 17; TEMP 98.6; O2SAT 98
[2017-02-04] MEDS: NYSTATIN 100,000 U/GM PWD 15 GM BTL TOPICAL SCH ×2 (09:00→21:42)
[2017-02-04] MEDS: ASPIRIN 81 MG CHEW TAB CHEW SCH (09:17)
[2017-02-04] MEDS: SENNOSIDES 8.6 MG TAB PO SCH (09:17)
[2017-02-04] MEDS: PANTOPRAZOLE SOD 40 MG DELAYED RELEASE TAB PO SCH (09:18)
[2017-02-04] MEDS: clonazePAM 0.5 MG TAB PO SCH ×2 (09:18→21:42)
[2017-02-04] MEDS: DOCUSATE SODIUM 100 MG CAP PO SCH ×2 (09:18→21:42)
[2017-02-04] MEDS: DILTIAZEM-CD 240 MG CAP ER PO SCH (09:18)
[2017-02-04] MEDS: metFORMIN HCL 850 MG TAB PO SCH ×2 (09:18→17:21)
[2017-02-04] MEDS: RIVAROXABAN 20 MG TAB PO SCH (09:18)
[2017-02-04] MEDS: THIAMINE HCL 100 MG TAB PO SCH (09:18)
--- NOTE | 2017-02-04 13:39 | HHI.PR ---
Subjective Remarks Follow-up for CVA, hemiparesis, left lower extremity DVT. Patient complains of some itching to his right shoulder. Objective Vitals Vital Signs Date Time Temp Pulse Resp B/P Pulse Ox O2 Delivery O2 Flow Rate FiO2 02/04/17 08:00 98.6 73 17 121/83 98 02/03/17 20:00 98.1 86 21 133/90 96 I/O 02/03/17 02/03/17 02/03/17 02/04/17 02/04/17 02/04/17 07:00 15:00 23:00 07:00 15:00 23:00 Intake Total 240 ml 480 ml 720 ml Output Total 525 ml 1175 ml 1000 ml 350 ml Balance -285 ml -695 ml -280 ml -350 ml Intake Oral 240 ml 480 ml 720 ml Output Urine Total 525 ml 1175 ml 1000 ml 350 ml Objective Remarks GENERAL: Well-nourished, well developed patient no apparent distress. SKIN: Erythematous plaques and macules to the anterior chest and right shoulder. CARDIOVASCULAR: Regular rate and rhythm. RESPIRATORY: No accessory muscle use. CTAB. NEUROLOGICAL: Awake and alert. Normal speech. 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 There is a rash to his chest with small slightly scaly plaques, which is likely psoriasis as he has a history of this, stable. He's got another rash in the L axilla which is likely candidal. -Benadryl 25 mg po q6h prn pruritus. -S/p Hydrocortisone ointment to chest and back. -S/p Clotrimazole cream to axillary rash. -Continue Nystatin powder. -Restart hydrocortisone ointment to psoriatic chest rash but only as needed. Right Subacute basal ganglia infarct, with L hemiplegia Aspirin continued Continue PT/OT/ST evaluations X-ray left shoulder which did not indicate any acute abnormality or any separations DVT of the left lower extremity Patient on Xarelto Strep pneumonia meningitis, endocarditis, sepsis: Treated Infectious disease will need to be reconsulted since the patient left the hospital and patient with low-grade fever Completed Penicillin G 24 million units, end date 12/02/16 Blood cultures negative for 5 days, urinalysis clear. Chest x-rays shows mild streaky opacity in the left lung base consistent with scarring Hypertension, blood pressure stable Cardizem 240 mg daily Diabetes mellitus 2, stable Recent A1c 7.1 Continue metformin 850 mg twice daily Hyperlipidemia LDL 128 Lipitor 20 mg at bedtime, continue to monitor every 6-8 weeks Adjustment disorder with depressed mood 01/06/17: Psychiatry reconsulted for depression and SI. Psych note appreciated. Trazodone 100 mg po qhs. Seroquel 50 mg at bedtime Klonopin 0.5 mg every 12 hours GI Prophylaxis: Protonix. DVT prophylaxis: Xarelto Discharge Planning OT and PT recommending rehab. Wheelchair and L ankle/foot orthosis recommended. 02/04: Per correctional casework specialist, patient has been accepted to [facility] tomorrow. Will discharge in the morning. Kirsten Fournier February 04, 2017 13:39
[2017-02-04] MEDS ORDERED: HYDROCORTISONE 1% OINT 30 GM TUBE TOPICAL PRN (15:00)
[2017-02-04 20:00] VITALS: BP 129/92; PULSE 80; RESP 20; TEMP 97.8; O2SAT 98
[2017-02-04] MEDS: QUEtiapine FUMARATE 25 MG TAB PO SCH (21:41)
[2017-02-04] MEDS: ATORVASTATIN 20 MG TAB PO SCH (21:42)
[2017-02-04] MEDS: traZODone HCL 100 MG TAB PO SCH (21:42)
[2017-02-05] MEDS ORDERED: XARE20TA PO (07:36)
[2017-02-05] MEDS ORDERED: GNP1OIN TOPICAL (07:36)
[2017-02-05] MEDS ORDERED: METF850 PO (07:36)
[2017-02-05] MEDS ORDERED: QUET1TAB7 PO (07:36)
[2017-02-05] MEDS ORDERED: ASPI81CH25 CHEW (07:36)
[2017-02-05] MEDS ORDERED: SENN8.6T15 PO (07:36)
[2017-02-05] MEDS ORDERED: DOCU1CAP39 PO (07:36)
[2017-02-05] MEDS ORDERED: PROT40TA PO (07:36)
[2017-02-05] MEDS ORDERED: TRAZ50TA12 PO (07:36)
[2017-02-05] MEDS ORDERED: NYST10007 TOPICAL (07:36)
[2017-02-05] MEDS ORDERED: ATOR20TA15 PO (07:36)
[2017-02-05] MEDS ORDERED: GNP100TA3 PO (07:36)
[2017-02-05] MEDS ORDERED: CARD240C6 PO (07:36)
--- NOTE | 2017-02-05 07:44 | HHI.DCPOC ---
Discharge Care Plan Diagnosis: (1) Subacute R basal ganglia infarct (2) Sepsis (3) Endocarditis of aortic valve (4) Bacterial meningitis (5) Left hemiplegia (6) Deep vein thrombosis (DVT) of left lower extremity (7) Adjustment disorder with depressed mood (8) Polysubstance dependence (9) Unspecified personality disorder (10) Rash Your Health Problems Are: Rash Goals to Promote Your Health * To prevent worsening of your condition and complications * To maintain your health at the optimal level Directions to Meet Your Goals Take your medications as prescribed Follow your dietary instruction Follow activity as directed Keep your appointments as scheduled Take your immunizations and boosters as scheduled If your symptoms worsen call your PCP, if no PCP go to Urgent Care Center or Emergency Room Smoking is Dangerous to Your Health. Avoid second hand smoke Call the 24-hour hour crisis hotline for domestic abuse at Kirsten Fournier Feb 05, 2017 07:44
[2017-02-05 08:24] VITALS: BP 117/88; PULSE 93; RESP 19; TEMP 97.6; O2SAT 94
--- NOTE | 2017-02-05 08:27 | HHI.DS ---
Discharge Summary Admission Date Nov 22, 2016 at 12:52 Admitting Diagnosis bacterial endocarditis, bacterial meningitis, CVA with left-sided we (1) Rash ICD Code: R21 (2) Endocarditis of aortic valve ICD Code: I35.8 (3) Bacterial meningitis ICD Code: G00.9 (4) Embolic stroke of left basal ganglia ICD Code: I63.40 (5) Deep vein thrombosis (DVT) of left lower extremity ICD Code: I82.402 Brief History - From Admission 51-year-old male with recent history of sepsis, bacterial endocarditis , strep pneumonia meningitis, 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 Patient was in the hospital undergoing IV antibiotic management, PT/OT management at [facility] because he does not have any insurance or monetary means. The patient left AGAINST MEDICAL ADVICE in order to see his friends. He had someone, and pick him up and signed him out of the hospital. Apparently he was dropped a couple times in outpatient setting. The patient went out and he states that he only had one alcohol beverage. He denied going to any pars. Denied any drug use. The patient then woke up in the middle and night realizing how stupid he was for leaving the hospital. So he came back to get reevaluated and admitted for continued management. PE at Discharge GENERAL: Well-nourished, well developed patient no apparent distress. SKIN: Erythematous plaques and macules to the anterior chest and right shoulder. CARDIOVASCULAR: Regular rate and rhythm. RESPIRATORY: No accessory muscle use. CTAB. NEUROLOGICAL: Awake and alert. Normal speech. Discharge Instructions Speech Therapy-Diet Recommends: Mechanical Soft Kirsten Fournier Feb 05, 2017 08:27
[2017-02-05] MEDS: NYSTATIN 100,000 U/GM PWD 15 GM BTL TOPICAL SCH ×2 (09:00→21:06)
[2017-02-05] MEDS: THIAMINE HCL 100 MG TAB PO SCH (09:00)
[2017-02-05] MEDS: PANTOPRAZOLE SOD 40 MG DELAYED RELEASE TAB PO SCH (09:30)
[2017-02-05] MEDS: DOCUSATE SODIUM 100 MG CAP PO SCH ×2 (09:30→21:04)
[2017-02-05] MEDS: DILTIAZEM-CD 240 MG CAP ER PO SCH (09:30)
[2017-02-05] MEDS: SENNOSIDES 8.6 MG TAB PO SCH (09:31)
[2017-02-05] MEDS: RIVAROXABAN 20 MG TAB PO SCH (09:31)
[2017-02-05] MEDS: metFORMIN HCL 850 MG TAB PO SCH ×2 (09:31→16:16)
[2017-02-05] MEDS: ASPIRIN 81 MG CHEW TAB CHEW SCH (09:31)
[2017-02-05] MEDS: clonazePAM 0.5 MG TAB PO SCH ×2 (09:31→21:04)
--- NOTE | 2017-02-05 14:43 | HHI.PR ---
Subjective Remarks Patient evaluated at ~0825 this morning. Follow-up for CVA, left hemiparesis, left lower extremity DVT. Objective Vitals Vital Signs Date Time Temp Pulse Resp B/P Pulse Ox O2 Delivery O2 Flow Rate FiO2 02/05/17 08:24 97.6 93 19 117/88 94 02/04/17 20:00 97.8 80 20 129/92 98 I/O 02/04/17 02/04/17 02/04/17 02/05/17 02/05/17 02/05/17 07:00 15:00 23:00 07:00 15:00 23:00 Intake Total 720 ml 480 ml 720 ml 100 ml Output Total 1000 ml 750 ml 550 ml 1000 ml Balance -280 ml -750 ml -70 ml -280 ml 100 ml Intake Oral 720 ml 480 ml 720 ml 100 ml Output Urine Total 1000 ml 750 ml 550 ml 1000 ml Objective Remarks GENERAL: Well-nourished, well developed patient in no apparent distress. SKIN: Erythematous plaques and macules to the anterior chest and right shoulder. No longer has rash to back. CARDIOVASCULAR: Regular rate and rhythm. RESPIRATORY: No accessory muscle use. CTAB. GASTROINTESTINAL: Abdomen soft, non-tender, non-distended. NEUROLOGICAL: Awake and alert. Weak land degradation analyst strength L hand. L arm in sling. 5/5 strength R leg. Left leg is weak but patient is able to lift it. Normal speech. PSYCHIATRIC: Normal mood and affect. Urinary Catheter: No Vascular Central Line Catheter: No A/P Problem List: (1) Rash ICD Code: R21 Status: Acute (2) Endocarditis of aortic valve ICD Code: I35.8 Status: Acute (3) Bacterial meningitis ICD Code: G00.9 Status: Acute (4) Embolic stroke of left basal ganglia ICD Code: I63.40 Status: Acute (5) Deep vein thrombosis (DVT) of left lower extremity ICD Code: I82.402 Status: Acute Assessment and Plan Rashes: Rash to back is likely contact dermatitis from sheets, resolved. There is a rash to his chest with small slightly scaly plaques, which is likely psoriasis as he has a history of this, stable. He's got another rash in the L axilla which is likely candidal. -Benadryl 25 mg po q6h prn pruritus. -S/p Hydrocortisone ointment to chest and back. -S/p Clotrimazole cream to axillary rash. -Continue Nystatin powder. -Hydrocortisone ointment to psoriatic chest rash as needed. Right Subacute basal ganglia infarct, with L hemiplegia Aspirin continued Continue PT/OT/ST evaluations X-ray left shoulder which did not indicate any acute abnormality or any separations DVT of the left lower extremity Patient on Xarelto Strep pneumonia meningitis, endocarditis, sepsis: Treated Infectious disease will need to be reconsulted since the patient left the hospital and patient with low-grade fever Completed Penicillin G 24 million units, end date 12/02/16 Blood cultures negative for 5 days, urinalysis clear. Chest x-rays shows mild streaky opacity in the left lung base consistent with scarring Hypertension, blood pressure stable Cardizem 240 mg daily Diabetes mellitus 2, stable Recent A1c 7.1 Continue metformin 850 mg twice daily Hyperlipidemia LDL 128 Lipitor 20 mg at bedtime, continue to monitor every 6-8 weeks Adjustment disorder with depressed mood 01/06/17: Psychiatry reconsulted for depression and SI. Psych note appreciated. Trazodone 100 mg po qhs. Seroquel 50 mg at bedtime Klonopin 0.5 mg every 12 hours GI Prophylaxis: Protonix. DVT prophylaxis: Xarelto Discharge Planning OT and PT recommending rehab. Wheelchair and L ankle/foot orthosis recommended. 02/04: Per family caseworker, patient has been accepted to [facility]. 02/05: Patient was discharged to [place] per , but later I was informed by HONEY Landry that rehab was denied by Medicaid HMO. Patient to remain hospitalized for now until cleared by PT. Per latest note, patient walked 475 feet with melyssa- walker, fair balance. Kirsten Fournier Feb 05, 2017 14:43
[2017-02-05 20:00] VITALS: BP 133/84; PULSE 79; RESP 20; TEMP 97.8; O2SAT 93
[2017-02-05] MEDS: traZODone HCL 100 MG TAB PO SCH (21:04)
[2017-02-05] MEDS: QUEtiapine FUMARATE 25 MG TAB PO SCH (21:04)
[2017-02-05] MEDS: ATORVASTATIN 20 MG TAB PO SCH (21:04)
[2017-02-06 08:00] VITALS: BP 122/81; PULSE 81; RESP 18; TEMP 98.2; O2SAT 94
[2017-02-06] MEDS: metFORMIN HCL 850 MG TAB PO SCH ×2 (09:07→17:40)
[2017-02-06] MEDS: PANTOPRAZOLE SOD 40 MG DELAYED RELEASE TAB PO SCH (09:07)
[2017-02-06] MEDS: clonazePAM 0.5 MG TAB PO SCH ×2 (09:07→21:21)
[2017-02-06] MEDS: RIVAROXABAN 20 MG TAB PO SCH (09:07)
[2017-02-06] MEDS: SENNOSIDES 8.6 MG TAB PO SCH (09:07)
[2017-02-06] MEDS: ASPIRIN 81 MG CHEW TAB CHEW SCH (09:08)
[2017-02-06] MEDS: DOCUSATE SODIUM 100 MG CAP PO SCH ×2 (09:08→21:21)
[2017-02-06] MEDS: DILTIAZEM-CD 240 MG CAP ER PO SCH (09:08)
[2017-02-06] MEDS: THIAMINE HCL 100 MG TAB PO SCH (09:08)
[2017-02-06] MEDS: NYSTATIN 100,000 U/GM PWD 15 GM BTL TOPICAL SCH ×2 (09:10→21:20)
--- NOTE | 2017-02-06 11:06 | HHI.PR ---
Subjective Remarks Follow-up for CVA, hemiparesis, left lower extremity DVT. Patient has no acute complaints, but he does appear disappointed as he was supposed [facility] but it fell through. Objective Vitals Vital Signs Date Time Temp Pulse Resp B/P Pulse Ox O2 Delivery O2 Flow Rate FiO2 02/06/17 08:00 98.2 81 18 122/81 94 02/05/17 20:00 97.8 79 20 133/84 93 I/O 02/05/17 02/05/17 02/05/17 02/06/17 02/06/17 02/06/17 07:00 15:00 23:00 07:00 15:00 23:00 Intake Total 720 ml 100 ml 1270 ml 720 ml Output Total 1000 ml 400 ml 1500 ml Balance -280 ml 100 ml 870 ml -780 ml Intake Oral 720 ml 100 ml 1270 ml 720 ml Output Urine Total 1000 ml 400 ml 1500 ml # Voids 4 # Bowel Movements 2 0 Objective Remarks GENERAL: Well-nourished, well developed patient in no apparent distress. CARDIOVASCULAR: Regular rate and rhythm. RESPIRATORY: No accessory muscle use. CTAB. GASTROINTESTINAL: Abdomen soft, non-tender, non-distended. NEUROLOGICAL: Awake and alert. Normal speech. PSYCHIATRIC: Disappointed mood and affect. Urinary Catheter: No Vascular Central Line Catheter: No A/P Problem List: (1) Rash ICD Code: R21 Status: Acute (2) Endocarditis of aortic valve ICD Code: I35.8 Status: Acute (3) Bacterial meningitis ICD Code: G00.9 Status: Acute (4) Embolic stroke of left basal ganglia ICD Code: I63.40 Status: Acute (5) Deep vein thrombosis (DVT) of left lower extremity ICD Code: I82.402 Status: Acute Assessment and Plan Rashes: Rash to back is likely contact dermatitis from sheets, resolved. There is a rash to his chest with small slightly scaly plaques, which is likely psoriasis as he has a history of this, stable. He's got another rash in the L axilla which is likely candidal. -Benadryl 25 mg po q6h prn pruritus. -S/p Hydrocortisone ointment to chest and back. -S/p Clotrimazole cream to axillary rash. -Continue Nystatin powder. -Hydrocortisone ointment to psoriatic chest rash as needed. Right Subacute basal ganglia infarct, with L hemiplegia Aspirin continued Continue PT/OT/ST evaluations X-ray left shoulder which did not indicate any acute abnormality or any separations DVT of the left lower extremity Patient on Xarelto Strep pneumonia meningitis, endocarditis, sepsis: Treated Infectious disease will need to be reconsulted since the patient left the hospital and patient with low-grade fever Completed Penicillin G 24 million units, end date 12/02/16 Blood cultures negative for 5 days, urinalysis clear. Chest x-rays shows mild streaky opacity in the left lung base consistent with scarring Hypertension, blood pressure stable Cardizem 240 mg daily Diabetes mellitus 2, stable Recent A1c 7.1 Continue metformin 850 mg twice daily Hyperlipidemia LDL 128 Lipitor 20 mg at bedtime, continue to monitor every 6-8 weeks Adjustment disorder with depressed mood 01/06/17: Psychiatry reconsulted for depression and SI. Psych note appreciated. Trazodone 100 mg po qhs. Seroquel 50 mg at bedtime Klonopin 0.5 mg every 12 hours GI Prophylaxis: Protonix. DVT prophylaxis: Xarelto Discharge Planning OT and PT recommending rehab. Wheelchair and L ankle/foot orthosis recommended. 02/04: Per rn case manager, patient has been accepted to [facility]. 02/05: Patient was discharged to [place] per , but later I was informed by HONEY Landry that rehab was denied by Medicaid HMO. 02/06: Patient to remain hospitalized for now until cleared by PT. Per today's note, patient walked 610 feet with melyssa-walker, fair balance. I spoke with physical therapist who states patient still needs some more work. Kirsten Fournier Feb 06, 2017 11:06
[2017-02-06 20:00] VITALS: BP 131/94; PULSE 82; RESP 18; TEMP 98.2; O2SAT 96
[2017-02-06] MEDS: traZODone HCL 100 MG TAB PO SCH (21:21)
[2017-02-06] MEDS: QUEtiapine FUMARATE 25 MG TAB PO SCH (21:21)
[2017-02-06] MEDS: ATORVASTATIN 20 MG TAB PO SCH (21:21)
[2017-02-07 08:50] VITALS: BP 110/80; PULSE 81; RESP 18; TEMP 97.4; O2SAT 94
[2017-02-07] MEDS: PANTOPRAZOLE SOD 40 MG DELAYED RELEASE TAB PO SCH (08:55)
[2017-02-07] MEDS: metFORMIN HCL 850 MG TAB PO SCH ×2 (08:55→17:26)
[2017-02-07] MEDS: DOCUSATE SODIUM 100 MG CAP PO SCH ×2 (08:55→21:59)
[2017-02-07] MEDS: THIAMINE HCL 100 MG TAB PO SCH (08:56)
[2017-02-07] MEDS: ASPIRIN 81 MG CHEW TAB CHEW SCH (08:56)
[2017-02-07] MEDS: RIVAROXABAN 20 MG TAB PO SCH (08:56)
[2017-02-07] MEDS: NYSTATIN 100,000 U/GM PWD 15 GM BTL TOPICAL SCH ×2 (08:56→22:00)
[2017-02-07] MEDS: SENNOSIDES 8.6 MG TAB PO SCH (08:56)
[2017-02-07] MEDS: DILTIAZEM-CD 240 MG CAP ER PO SCH (08:56)
[2017-02-07] MEDS: clonazePAM 0.5 MG TAB PO SCH ×2 (08:56→21:59)
--- NOTE | 2017-02-07 11:32 | HHI.PR ---
Subjective Remarks Follow-up for CVA, left sided hemiparesis, left lower extremity DVT. Patient is very frustrated with physical therapists because he wants to know a timeline of when he can go home. He states he is ambulating well enough to go home. He states he feels like he is incarcerated. He states he needs to go home to take of the bills. States his mother has dementia and lives with him. Objective Vitals Vital Signs Date Time Temp Pulse Resp B/P Pulse Ox O2 Delivery O2 Flow Rate FiO2 02/07/17 08:50 97.4 81 18 110/80 94 02/06/17 20:00 98.2 82 18 131/94 96 I/O 02/06/17 02/06/17 02/06/17 02/07/17 02/07/17 02/07/17 07:00 15:00 23:00 07:00 15:00 23:00 Intake Total 720 ml 750 ml 700 ml 480 ml Output Total 1500 ml 825 ml 600 ml 600 ml Balance -780 ml -75 ml 100 ml -120 ml Intake Oral 720 ml 750 ml 700 ml 480 ml IV Total 0 ml Output Urine Total 1500 ml 825 ml 600 ml 600 ml # Bowel Movements 0 0 0 Objective Remarks GENERAL: Well-nourished, well developed patient in no apparent distress. CARDIOVASCULAR: Regular rate and rhythm. RESPIRATORY: No accessory muscle use. CTAB. GASTROINTESTINAL: Abdomen soft, non-tender, non-distended. MUSCULOSKELETAL: 2+ DP pulses bilaterally. NEUROLOGICAL: Awake and alert. Normal speech. PSYCHIATRIC: Frustrated mood and affect. Urinary Catheter: No Vascular Central Line Catheter: No A/P Problem List: (1) Rash ICD Code: R21 Status: Acute (2) Endocarditis of aortic valve ICD Code: I35.8 Status: Acute (3) Bacterial meningitis ICD Code: G00.9 Status: Acute (4) Embolic stroke of left basal ganglia ICD Code: I63.40 Status: Acute (5) Deep vein thrombosis (DVT) of left lower extremity ICD Code: I82.402 Status: Acute Assessment and Plan Rashes: Rash to back is likely contact dermatitis from sheets, resolved. There is a rash to his chest with small slightly scaly plaques, which is likely psoriasis as he has a history of this, stable. He's got another rash in the L axilla which is likely candidal. -Benadryl 25 mg po q6h prn pruritus. -S/p Hydrocortisone ointment to chest and back. -S/p Clotrimazole cream to axillary rash. -Continue Nystatin powder. -Hydrocortisone ointment to psoriatic chest rash as needed. Right Subacute basal ganglia infarct, with L hemiplegia Aspirin continued Continue PT/OT/ST evaluations X-ray left shoulder which did not indicate any acute abnormality or any separations DVT of the left lower extremity Patient on Xarelto Strep pneumonia meningitis, endocarditis, sepsis: Treated Infectious disease will need to be reconsulted since the patient left the hospital and patient with low-grade fever Completed Penicillin G 24 million units, end date 12/02/16 Blood cultures negative for 5 days, urinalysis clear. Chest x-rays shows mild streaky opacity in the left lung base consistent with scarring Hypertension, blood pressure stable Cardizem 240 mg daily Diabetes mellitus 2, stable Recent A1c 7.1 Continue metformin 850 mg twice daily Hyperlipidemia LDL 128 Lipitor 20 mg at bedtime, continue to monitor every 6-8 weeks Adjustment disorder with depressed mood 01/06/17: Psychiatry reconsulted for depression and SI. Psych note appreciated. Trazodone 100 mg po qhs. Seroquel 50 mg at bedtime Klonopin 0.5 mg every 12 hours GI Prophylaxis: Protonix. DVT prophylaxis: Xarelto Discharge Planning OT and PT recommending rehab. Wheelchair and L ankle/foot orthosis recommended. 02/04: Per caser up, patient has been accepted to [facility]. 02/05: Patient was discharged to [place] per , but later I was informed by HONEY Landry that rehab was denied by Medicaid HMO. 02/06: Per today's note, patient walked 610 feet with melyssa-walker, fair balance. I spoke with physical therapist who states patient still needs some more work. 02/07: I informed patient I will speak again with physical therapist on Thursday. Patient to remain hospitalized for now until cleared by PT. I informed patient we need to be able to safely discharge him. Kirsten Fournier Feb 07, 2017 11:32
[2017-02-07 20:00] VITALS: BP 137/90; PULSE 79; RESP 22; TEMP 98.9; O2SAT 96
[2017-02-07] MEDS: traZODone HCL 100 MG TAB PO SCH (21:59)
[2017-02-07] MEDS: QUEtiapine FUMARATE 25 MG TAB PO SCH (21:59)
[2017-02-07] MEDS: ATORVASTATIN 20 MG TAB PO SCH (21:59)
[2017-02-08] MEDS: NYSTATIN 100,000 U/GM PWD 15 GM BTL TOPICAL SCH ×2 (09:00→20:45)
[2017-02-08] MEDS: THIAMINE HCL 100 MG TAB PO SCH (09:00)
[2017-02-08] MEDS: DILTIAZEM-CD 240 MG CAP ER PO SCH (09:00)
[2017-02-08] MEDS: SENNOSIDES 8.6 MG TAB PO SCH (10:05)
[2017-02-08] MEDS: PANTOPRAZOLE SOD 40 MG DELAYED RELEASE TAB PO SCH (10:05)
[2017-02-08] MEDS: ASPIRIN 81 MG CHEW TAB CHEW SCH (10:05)
[2017-02-08] MEDS: clonazePAM 0.5 MG TAB PO SCH ×2 (10:05→20:43)
[2017-02-08] MEDS: metFORMIN HCL 850 MG TAB PO SCH ×2 (10:06→17:12)
[2017-02-08] MEDS: RIVAROXABAN 20 MG TAB PO SCH (10:06)
[2017-02-08] MEDS: DOCUSATE SODIUM 100 MG CAP PO SCH ×2 (10:06→20:43)
--- NOTE | 2017-02-08 10:25 | HHI.PR ---
Subjective Remarks Follow up for CVA, left hemiparesis, left lower extremity DVT. Admits to itching behind his R ear feeling that his rash is spreading. Nurse informs me that the patient only ambulates and stands/transfers with the physical therapist. When I addressed this with the patient he states he did this with the nurse yesterday. I informed him he needs to be doing this under supervision of every nurse he has. I informed him that if he wants to go home he needs to show that he is independent. Objective Vitals Vital Signs Date Time Temp Pulse Resp B/P Pulse Ox O2 Delivery O2 Flow Rate FiO2 02/07/17 20:00 98.9 79 22 137/90 96 I/O 02/07/17 02/07/17 02/07/17 02/08/17 02/08/17 02/08/17 07:00 15:00 23:00 07:00 15:00 23:00 Intake Total 480 ml 1080 ml 590 ml 480 ml Output Total 600 ml 1650 ml 1150 ml 1400 ml Balance -120 ml -570 ml -560 ml -920 ml Intake Oral 480 ml 1080 ml 590 ml 480 ml Output Urine Total 600 ml 1650 ml 1150 ml 1400 ml # Bowel Movements 0 Objective Remarks GENERAL: Well-nourished, well developed patient in no apparent distress. SKIN: Dobbins plaques to chest are less prominent in the intertriginous region below R breast. Rash does extend to R shoulder, but no rash at the scalp behind the R ear. CARDIOVASCULAR: Regular rate and rhythm. RESPIRATORY: No accessory muscle use. Minimal wheezing on the R. GASTROINTESTINAL: Abdomen soft, non-tender, non-distended. NEUROLOGICAL: Awake and alert. Normal speech. PSYCHIATRIC: Depressed affect. Urinary Catheter: No Vascular Central Line Catheter: No A/P Problem List: (1) Rash ICD Code: R21 Status: Acute (2) Endocarditis of aortic valve ICD Code: I35.8 Status: Acute (3) Bacterial meningitis ICD Code: G00.9 Status: Acute (4) Embolic stroke of left basal ganglia ICD Code: I63.40 Status: Acute (5) Deep vein thrombosis (DVT) of left lower extremity ICD Code: I82.402 Status: Acute Assessment and Plan Rashes: Rash to back is likely contact dermatitis from sheets, resolved. There is a rash to his chest with small slightly scaly plaques, which is likely psoriasis as he has a history of this, stable. He's got another rash in the L axilla which is likely candidal. -Benadryl 25 mg po q6h prn pruritus. -S/p Hydrocortisone ointment to back. -S/p Clotrimazole cream to axillary rash. -Continue Nystatin powder. -Continue Hydrocortisone ointment to psoriatic chest rash as needed. Right Subacute basal ganglia infarct, with L hemiplegia Aspirin continued Continue PT/OT/ST evaluations X-ray left shoulder which did not indicate any acute abnormality or any separations DVT of the left lower extremity Patient on Xarelto Strep pneumonia meningitis, endocarditis, sepsis: Treated Infectious disease will need to be reconsulted since the patient left the hospital and patient with low-grade fever Completed Penicillin G 24 million units, end date 12/02/16 Blood cultures negative for 5 days, urinalysis clear. Chest x-rays shows mild streaky opacity in the left lung base consistent with scarring Hypertension, blood pressure stable Cardizem 240 mg daily Diabetes mellitus 2, stable Recent A1c 7.1 Continue metformin 850 mg twice daily Hyperlipidemia LDL 128 Lipitor 20 mg at bedtime, continue to monitor every 6-8 weeks Adjustment disorder with depressed mood 01/06/17: Psychiatry reconsulted for depression and SI. Psych note appreciated. Trazodone 100 mg po qhs. Seroquel 50 mg at bedtime Klonopin 0.5 mg every 12 hours GI Prophylaxis: Protonix. DVT prophylaxis: Xarelto Discharge Planning OT and PT recommending rehab. Wheelchair and L ankle/foot orthosis recommended. 02/04: Per case work aide, patient has been accepted to [facility]. 02/05: Patient was discharged to [place] per , but later I was informed by HONEY Landry that rehab was denied by Medicaid HMO. 02/06: Per today's note, patient walked 610 feet with melyssa-walker, fair balance. I spoke with physical therapist who states patient still needs some more work. 02/07: I informed patient I will speak again with physical therapist on Thursday. Patient to remain hospitalized for now until cleared by PT. I informed patient we need to be able to safely discharge him. 02/08: Stressed to patient the importance of activity (transfers, ambulation, etc ) under nursing supervision not just physical therapy. Kirsten Fournier Feb 08, 2017 10:25
[2017-02-08 20:00] VITALS: BP 134/87; PULSE 95; RESP 20; TEMP 98.5; O2SAT 98
[2017-02-08] MEDS: QUEtiapine FUMARATE 25 MG TAB PO SCH (20:43)
[2017-02-08] MEDS: traZODone HCL 100 MG TAB PO SCH (20:43)
[2017-02-08] MEDS: ATORVASTATIN 20 MG TAB PO SCH (20:43)
[2017-02-09 08:56] VITALS: BP 148/96; PULSE 85; RESP 19; TEMP 98.6; O2SAT 96
[2017-02-09] MEDS: NYSTATIN 100,000 U/GM PWD 15 GM BTL TOPICAL SCH ×2 (09:00→20:51)
[2017-02-09] MEDS: DILTIAZEM-CD 240 MG CAP ER PO SCH (09:12)
[2017-02-09] MEDS: metFORMIN HCL 850 MG TAB PO SCH ×2 (09:12→17:32)
[2017-02-09] MEDS: clonazePAM 0.5 MG TAB PO SCH ×2 (09:12→20:49)
[2017-02-09] MEDS: RIVAROXABAN 20 MG TAB PO SCH (09:12)
[2017-02-09] MEDS: THIAMINE HCL 100 MG TAB PO SCH (09:12)
[2017-02-09] MEDS: DOCUSATE SODIUM 100 MG CAP PO SCH ×2 (09:12→20:48)
[2017-02-09] MEDS: PANTOPRAZOLE SOD 40 MG DELAYED RELEASE TAB PO SCH (09:12)
[2017-02-09] MEDS: ASPIRIN 81 MG CHEW TAB CHEW SCH (09:12)
[2017-02-09] MEDS: SENNOSIDES 8.6 MG TAB PO SCH (09:12)
--- NOTE | 2017-02-09 10:51 | HHI.PR ---
Subjective Remarks Follow-up for CVA, hemiparesis, left lower extremity DVT. Nurse tells me that yesterday patient did not transfer with her even though I told him yesterday he needs to be doing this with the nurses. The patient states I was not present to observe him. I told him he needs to be doing these things with the nurses because I cannot be up on the floor all the time. Physical therapist Chris walked in at time of interview and states patient walked to the bathroom the other day. Patient is advised he needs to show us he can be independent if he wants to go home. Objective Vitals Vital Signs Date Time Temp Pulse Resp B/P Pulse Ox O2 Delivery O2 Flow Rate FiO2 02/09/17 08:56 98.6 85 19 148/96 96 02/08/17 20:00 98.5 95 20 134/87 98 I/O 02/08/17 02/08/17 02/08/17 02/09/17 02/09/17 02/09/17 07:00 15:00 23:00 07:00 15:00 23:00 Intake Total 480 ml 360 ml 360 ml 100 ml Output Total 1400 ml 575 ml 1200 ml Balance -920 ml -215 ml -840 ml 100 ml Intake Oral 480 ml 360 ml 360 ml 100 ml Output Urine Total 1400 ml 575 ml 1200 ml # Bowel Movements 2 1 Objective Remarks GENERAL: Well-nourished, well developed patient in no apparent distress. 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 CARDIOVASCULAR: Regular rate and rhythm. RESPIRATORY: No accessory muscle use. Mildly coarse expiratory breath sounds. GASTROINTESTINAL: Abdomen soft, non-tender, non-distended. NEUROLOGICAL: Awake and alert. Normal speech. Urinary Catheter: No Vascular Central Line Catheter: No A/P Problem List: (1) Rash ICD Code: R21 Status: Acute (2) Endocarditis of aortic valve ICD Code: I35.8 Status: Acute (3) Bacterial meningitis ICD Code: G00.9 Status: Acute (4) Embolic stroke of left basal ganglia ICD Code: I63.40 Status: Acute (5) Deep vein thrombosis (DVT) of left lower extremity ICD Code: I82.402 Status: Acute Assessment and Plan Rashes: Rash to back is likely contact dermatitis from sheets, resolved. There is a rash to his chest with small slightly scaly plaques, which is likely psoriasis as he has a history of this, stable. He's got another rash in the L axilla which is likely candidal. -Benadryl 25 mg po q6h prn pruritus. -S/p Hydrocortisone ointment to back. -S/p Clotrimazole cream to axillary rash. -Continue Nystatin powder. -Continue Hydrocortisone ointment to psoriatic chest rash as needed. Right Subacute basal ganglia infarct, with L hemiplegia Aspirin continued Continue PT/OT/ST evaluations X-ray left shoulder which did not indicate any acute abnormality or any separations DVT of the left lower extremity Patient on Xarelto Strep pneumonia meningitis, endocarditis, sepsis: Treated Infectious disease will need to be reconsulted since the patient left the hospital and patient with low-grade fever Completed Penicillin G 24 million units, end date 12/02/16 Blood cultures negative for 5 days, urinalysis clear. Chest x-rays shows mild streaky opacity in the left lung base consistent with scarring Hypertension, blood pressure stable Cardizem 240 mg daily Diabetes mellitus 2, stable Recent A1c 7.1 Continue metformin 850 mg twice daily Hyperlipidemia LDL 128 Lipitor 20 mg at bedtime, continue to monitor every 6-8 weeks Adjustment disorder with depressed mood 01/06/17: Psychiatry reconsulted for depression and SI. Psych note appreciated. Trazodone 100 mg po qhs. Seroquel 50 mg at bedtime Klonopin 0.5 mg every 12 hours GI Prophylaxis: Protonix. DVT prophylaxis: Xarelto Discharge Planning OT and PT recommending rehab. Wheelchair and L ankle/foot orthosis recommended. 02/04: Per case reviewer, patient has been accepted to [facility]. 02/05: Patient was discharged to [place] per , but later I was informed by HONEY Landry that rehab was denied by Medicaid HMO. 02/06: Per today's note, patient walked 610 feet with melyssa-walker, fair balance. I spoke with physical therapist who states patient still needs some more work. 02/07: I informed patient I will speak again with physical therapist on Thursday. Patient to remain hospitalized for now until cleared by PT. I informed patient we need to be able to safely discharge him. 02/08: Stressed to patient the importance of activity (transfers, ambulation, etc ) under nursing supervision not just physical therapy. 02/09: Patient is to transfer to bedside commode with nursing supervision. Kirsten Fournier Feb 09, 2017 10:51
[2017-02-09 20:00] VITALS: BP 144/91; PULSE 84; RESP 18; TEMP 98.4; O2SAT 95
[2017-02-09] MEDS: traZODone HCL 100 MG TAB PO SCH (20:48)
[2017-02-09] MEDS: QUEtiapine FUMARATE 25 MG TAB PO SCH (20:49)
[2017-02-09] MEDS: ATORVASTATIN 20 MG TAB PO SCH (20:49)
[2017-02-10 08:00] VITALS: BP 122/78; PULSE 79; RESP 17; TEMP 97.7; O2SAT 95
[2017-02-10] MEDS: NYSTATIN 100,000 U/GM PWD 15 GM BTL TOPICAL SCH (09:00)
[2017-02-10] MEDS: RIVAROXABAN 20 MG TAB PO SCH (09:00)
[2017-02-10] MEDS: THIAMINE HCL 100 MG TAB PO SCH (09:00)
[2017-02-10] MEDS: PANTOPRAZOLE SOD 40 MG DELAYED RELEASE TAB PO SCH (09:37)
[2017-02-10] MEDS: SENNOSIDES 8.6 MG TAB PO SCH (09:37)
[2017-02-10] MEDS: clonazePAM 0.5 MG TAB PO SCH ×2 (09:38→20:16)
[2017-02-10] MEDS: DILTIAZEM-CD 240 MG CAP ER PO SCH (09:38)
[2017-02-10] MEDS: metFORMIN HCL 850 MG TAB PO SCH ×2 (09:38→15:54)
[2017-02-10] MEDS: DOCUSATE SODIUM 100 MG CAP PO SCH ×2 (09:38→20:17)
[2017-02-10] MEDS: ASPIRIN 81 MG CHEW TAB CHEW SCH (09:38)
--- NOTE | 2017-02-10 13:03 | HHI.PR ---
Subjective Remarks Patient seen and examined today follow-up on CVA and hemiparesis. Patient denies any new complaints. Patient states that he is ambulating more by himself. Awaiting PT/OT recommendations for discharge. Objective Vitals Vital Signs Date Time Temp Pulse Resp B/P Pulse Ox O2 Delivery O2 Flow Rate FiO2 02/10/17 08:00 97.7 79 17 122/78 95 02/09/17 20:00 98.4 84 18 144/91 95 I/O 02/09/17 02/09/17 02/09/17 02/10/17 02/10/17 02/10/17 07:00 15:00 23:00 07:00 15:00 23:00 Intake Total 360 ml 100 ml 480 ml 720 ml Output Total 1200 ml 1300 ml Balance -840 ml 100 ml 480 ml -580 ml Intake Oral 360 ml 100 ml 480 ml 720 ml Output Urine Total 1200 ml 1300 ml # Voids 3 # Bowel Movements 1 0 0 Objective Remarks GENERAL: This is a well-nourished, well-developed patient, in no apparent distress. GENERAL: Well-developed, well-nourished, in no acute distress. alert and orientated HEENT: Head is normocephalic without any lesions or masses noted. Patient does have left-sided facial droop. Eyes: Extraocular muscles are intact. Conjunctivae were clear. NECK: Supple without any masses. Trachea midline no deviation. No JVD, CARDIAC: Regular rhythm, regular rate. S1/S2 are heard. No murmurs gallops or rubs. LUNGS: Clear to auscultation bilaterally. No wheeze, rhonchi or rales. No use of accessory muscles on inspiration or expiration. ABDOMEN: Soft, nontender. Nondistended. Bowel sounds heard in all 4 quadrants. No organomegaly or masses. Negative rebound, negative guarding EXTREMITIES: No edema, pulses are equal bilaterally. No cyanosis or clubbing NEUROLOGY: Mood and affect appear appropriate. Patient able to flex and extend left ankle. Patient is able to move his left upper extremity, he is moving his fingers. Right upper and lower extremity with 5/5 strength in 2+ deep tendon reflexes Urinary Catheter: No Vascular Central Line Catheter: No A/P Assessment and Plan Right Subacute basal ganglia infarct, with L hemiplegia Aspirin continued Continue PT/OT/ST evaluations, patient improving on a daily basis. Physical therapy recommending home with home health care if can be arranged Occupational therapy recommending care home facility versus home health care --Xray left shoulder which did not indicate any acute abnormality or any separations Diffuse papular/pleuritic rash, improving Patient was counseled on improved personal hygiene Continue nystatin powder DVT of the left lower extremity, on treatment Patient on Xarelto Strep pneumonia meningitis, endocarditis, sepsis: Treated Infectious disease will need to be reconsulted since the patient left the hospital and patient with low-grade fever Completed Penicillin G 24 million units, end date 12/02/16 Blood cultures negative for 5 days, urinalysis clear, Chest x-rays shows mild streaky opacity in the left lung base consistent with scarring Hypertension, blood pressure stable Cardizem 240 mg daily Hyperlipidemia LDL 128 Lipitor 20 mg at bedtime, continue monitor every 68 weeks Diabetes mellitus 2, stable Recent A1c 7.0, follow-up A1c 5.9 Continue metformin 850 mg twice daily Adjustment disorder with depressed mood Psychiatry was reconsulted on 01/06/17 because of increased acute depression and ideation. Medications were adjusted Trazodone 100 mg at bedtime Seroquel 50 mg at bedtime Klonopin 0.5 mg every 12 hours GI Prophylaxis: Protonix. DVT prophylaxis: Xarelto Discharge Planning Case management for discharge planning. Discharge home once cleared by PT/OT and arrangements made by case management Josh Taylor Feb 10, 2017 13:02
--- NOTE | 2017-02-10 13:05 | HHI.FF ---
Face to Face Verification Diagnosis: (1) Subacute R basal ganglia infarct (2) Left hemiplegia Physical Therapy Order: Evaluate and Treat, Improve ambulation, Strength and gait training Occupational Therapy Order: Evaluate and Treat, Improve ADL, Gross motor coordination, Fine motor coordination I have seen patient John Whitlock on 02/10/17. My clinical findings support the need for the requested home health care services because: Limited ability to care for self High risk of falls I certify that my clinical findings support that this patient is homebound because: Unsteady gait/balance Josh Taylor Feb 10, 2017 13:05
[2017-02-10 20:00] VITALS: BP 111/78; PULSE 76; RESP 20; TEMP 97.3; O2SAT 98
[2017-02-10] MEDS: ATORVASTATIN 20 MG TAB PO SCH (20:16)
[2017-02-10] MEDS: QUEtiapine FUMARATE 25 MG TAB PO SCH (20:16)
[2017-02-10] MEDS: traZODone HCL 100 MG TAB PO SCH (20:17)
[2017-02-11 08:47] VITALS: BP 129/82; PULSE 74; RESP 18; TEMP 97.2; O2SAT 95
[2017-02-11] MEDS: ASPIRIN 81 MG CHEW TAB CHEW SCH (08:55)
[2017-02-11] MEDS: clonazePAM 0.5 MG TAB PO SCH (08:56)
[2017-02-11] MEDS: metFORMIN HCL 850 MG TAB PO SCH ×2 (08:56→17:23)
[2017-02-11] MEDS: DILTIAZEM-CD 240 MG CAP ER PO SCH (08:56)
[2017-02-11] MEDS: DOCUSATE SODIUM 100 MG CAP PO SCH (08:56)
[2017-02-11] MEDS: PANTOPRAZOLE SOD 40 MG DELAYED RELEASE TAB PO SCH (08:57)
[2017-02-11] MEDS: SENNOSIDES 8.6 MG TAB PO SCH (08:57)
[2017-02-11] MEDS: THIAMINE HCL 100 MG TAB PO SCH (08:58)
[2017-02-11] MEDS: RIVAROXABAN 20 MG TAB PO SCH (09:09)
[2017-02-11] MEDS ORDERED: WALKER/FOLDING1 MIS (09:59)
[2017-02-11] MEDS ORDERED: shower chair (10:02)
--- NOTE | 2017-02-11 10:10 | HHI.DS ---
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 Patient was in the hospital undergoing IV antibiotic management, PT/OT management at [facility] because he does not have any insurance or monetary means. The patient left AGAINST MEDICAL ADVICE in order to see his friends. He had someone, and pick him up and signed him out of the hospital. Apparently he was dropped a couple times in outpatient setting. The patient went out and he states that he only had one alcohol beverage. He denied going to any pars. Denied any drug use. The patient then woke up in the middle and night realizing how stupid he was for leaving the hospital. So he came back to get reevaluated and admitted for continued management. Imaging Last Impressions Shoulder X-Ray 12/06/16 0000 Signed Impressions: Service Date/Time: Tuesday, December 06, 2016 12:13 - CONCLUSION: Negative for fracture or dislocation. Follow up in 7-10 days is suggested if symptoms persist. Maximiliano Nielsen MD FACR Thoracic Spine MRI 11/24/16 0000 Signed Impressions: Service Date/Time: Thursday, November 24, 2016 15:26 - CONCLUSION: Mild multilevel disc protrusions. No significant associated anatomic compromise. No acute bony findings. Ubaldo Gomes MD Lumbar Spine MRI 11/24/16 0000 Signed Impressions: Service Date/Time: Thursday, November 24, 2016 15:26 - CONCLUSION: Disc protrusions throughout the lumbar spine with moderate canal stenosis at L4-5. Less severe changes at other levels as described. Ubaldo Gomes MD Lower Extremity Ultrasound 11/24/16 0000 Signed Impressions: Service Date/Time: Thursday, November 24, 2016 11:48 - CONCLUSION: 1. Extensive DVT throughout the left lower extremity: Melvin Nielsen MD Chest X-Ray 11/23/16 0000 Signed Impressions: Service Date/Time: Wednesday, November 23, 2016 16:40 - CONCLUSION: 1. Mild streaky opacity remains at the left lung base most consistent with scarring. 2. No definite evidence of pneumonia. Micha Wallace MD PE at Discharge GENERAL: Well-nourished, well developed patient in no apparent distress. 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 CARDIOVASCULAR: Regular rate and rhythm. RESPIRATORY: No accessory muscle use. Mildly coarse expiratory breath sounds. GASTROINTESTINAL: Abdomen soft, non-tender, non-distended. NEUROLOGICAL: Awake and alert. Normal speech. 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 Patient was in the hospital undergoing IV antibiotic management, PT/OT management at [facility] because he does not have any insurance or monetary means. The patient left AGAINST MEDICAL ADVICE in order to see his friends. He had someone, pick him up and signed him out of the hospital. Apparently he was dropped a couple times in outpatient setting. The patient went out and he states that he only had one alcohol beverage. The patient came back to the hospital because he cannot take care of himself in outpatient setting because of his stroke and hemiplegia. Patient remain in the hospital because he had no financial means or any weight to take care of himself at home. Patient continued treatment with physical therapy, occupational therapy in the hospital until he improved enough to be transferred to inpatient rehabilitation. However patient was denied due to insurance reasons. Patient continued therapy and progressed enough to where he is stable to go home at this time. Physical therapy and occupational therapy have indicated that the patient came in discharge home with home health care. Case management consulted to make arrangements. Will plan discharge once arrangements made. Pt Condition on Discharge: Stable Discharge Disposition: Disch w/ Home Health Serv Discharge Time: > 30 minutes Discharge Instructions DIET: Follow Instructions for: Heart Healthy Diet, Diabetic Diet Speech Therapy-Diet Recommends: Mechanical Soft Activities you can perform: See Additionl Instruction Other Activity Instructions: activity per OT and PT Follow up Referrals: PCP Follow-up New Medications: Walker/Folding Daniel (Walker/Folding Daniel) 1 Mis Mis 1 EA .ROUTE DIRECTED ambulation #1 EA Wheelchair (Wheelchair) 1 Mis Mis 1 EA .ROUTE DIRECTED #1 Ref 0 EA ([shower chair]) UNIT use to shower shower safety #1 Aspirin (Aspirin Low Strength) 81 Mg Chew 81 MG CHEW DAILY Stroke Prevention #30 EA Atorvastatin (Atorvastatin) 20 Mg Tab 20 MG PO HS Cholesterol Management #30 TAB Diltiazem CD 24 HR (Cardizem CD 24 HR) 240 Mg Caper 240 MG PO DAILY Blood Pressure Management #30 CAP Metformin (Glucophage) 850 Mg Tab 850 MG PO BIDPC Blood Sugar Management #60 TAB Pantoprazole (Protonix) 40 Mg Tab 40 MG PO DAILY Reflux #30 TAB Quetiapine (Quetiapine) 25 Mg Tab 50 MG PO DAILY@1999 Depression Control #60 TAB Rivaroxaban (Xarelto) 20 Mg Tab 20 MG PO DAILY DVT #30 TAB Trazodone (Trazodone) 50 Mg Tab 100 MG PO DAILY@1999 Insomnia #60 TAB Additional Information Written by Josh Taylor, acting as scribe for Dr. Jones on 02/11/17 at 10: 07. This note was transcribed by scribe Josh Taylor. I, Dr. Ileana Jones personally performed the history, physical exam, and medical decision making; and confirmed the accuracy of the information in the transcribed note. Authenticated by Dr. Ileana Jones on 02/11/17 at 1015. Josh Taylor Feb 11, 2017 10:10 Ileana Jones MD Feb 11, 2017 17:20
== END 2017-02-11 18:15 | disposition home or self-care (01) | DRG 288 ==
LOC: NEPE 12:25 → NEDA 12:52 → PH5A 19:06
PROVIDERS: ADMIT Family Medicine; ATTEND Family Medicine
DX: I33.0 Acute and subacute infective endocarditis (principal); I63.40 Cerebral infarction due to embolism of unspecified cerebral artery; G00.9 Bacterial meningitis, unspecified; J15.4 Pneumonia due to other streptococci; I82.402 Acute embolism and thrombosis of unspecified deep veins of left lower extremity; G81.94 Hemiplegia, unspecified affecting left nondominant side; A40.3 Sepsis due to Streptococcus pneumoniae; F19.20 Other psychoactive substance dependence, uncomplicated; E11.65 Type 2 diabetes mellitus with hyperglycemia; I35.8 Other nonrheumatic aortic valve disorders; I10 Essential (primary) hypertension; F12.10 Cannabis abuse, uncomplicated; F43.21 Adjustment disorder with depressed mood; F60.9 Personality disorder, unspecified; F63.9 Impulse disorder, unspecified; R00.0 Tachycardia, unspecified; D64.9 Anemia, unspecified; M51.26 Other intervertebral disc displacement, lumbar region; M51.24 Other intervertebral disc displacement, thoracic region; E78.5 Hyperlipidemia, unspecified; F41.9 Anxiety disorder, unspecified; G47.00 Insomnia, unspecified; L25.9 Unspecified contact dermatitis, unspecified cause; L40.9 Psoriasis, unspecified; Z81.8 Family history of other mental and behavioral disorders; Z87.442 Personal history of urinary calculi; Z87.440 Personal history of urinary (tract) infections; Z23 Encounter for immunization
CPT/HCPCS: 71020; 72146; 72148; 73030; 80048; 80053; 80061; 80307; 81001; 82948; 83036; 83735; 85025; 85027; 85652; 86140; 87040; 90686; 90732; 93005; 93971; J1644; J1815; J2540; L3908; Q2038